=== PATIENT | female | born 1940 | race Caucasian/White ===

== ENCOUNTER 2016-10-30 10:54 | Emergency (ER) | payer OTHER, MEDICARE ==
[2016-10-30 11:05] VITALS: BP 128/49; PULSE 78; TEMP 97.5; BMI 18.5
--- NOTE | 2016-10-30 11:31 | PDOC ---
History of Present Illness - General Chief Complaint: Pain Stated Complaint: LEFT UPPER LEG PAIN Time Seen by Provider: 10/30/16 11:14 - History of Present Illness Initial Comments: 10/30/16 11:28 76-year-old female with a past medical history of hypertension, hyperlipidemia, COPD, CAD, and a prior left hip fracture Patient states that 3 days ago she developed left thigh pain, which is worse when she gets up from a sitting position, and feels better when she is at rest She describes the pain as a pulling sensation in her inner thigh She denies any fall or injury She denies any swelling or erythema She denies any rash She denies any numbness or tingling in her leg or foot She denies any direct trauma to the area She states she is not on any blood thinners at this time She denies any other complaints at this time, and the remainder of the review of systems is negative Past History - Past Medical History Allergies/Adverse Reactions: Allergies Allergy/AdvReac Type Severity Reaction Status Date / Time Stock Ragweed Pollen Mixture Allergy Intermediate Cough Verified 10/30/16 10:56 No Known Drug Allergies Allergy Verified 10/30/16 10:56 Home Medications: Ambulatory Orders Atenolol [Tenormin -] 50 mg PO DAILY #0 08/02/11 Rosuvastatin Calcium [Crestor] 10 mg PO DAILY #0 08/02/11 Ramipril 10 mg PO HS 05/07/12 Fenofibrate [Lipofen] 145 mg PO DAILY 05/15/13 Ipratropium/Albuterol Sulfate [Combivent Respimat Inhal [place]] 4 gm IH PRN PRN 10/30/16 Anemia: No Asthma: No Cancer: Yes (LEFT BREAST 1999) Cardiac Disorders: Yes CVA: No COPD: No CHF: No Dementia: No Diabetes: No GI Disorders: Yes (H/O COLONIC POLYPS) Disorders: No HTN: Yes Hypercholesterolemia: Yes Liver Disease: No Seizures: No Thyroid Disease: No - Surgical History Abdominal Surgery: No Appendectomy: Yes (2003) Cardiac Surgery: Yes (ANGIOPLASTY/STENT PLACEMENT) Cholecystectomy: Yes (2004) Lung Surgery: No Neurologic Surgery: No Orthopedic Surgery: Yes (RIGHT HIP REPLACEMENT 1999/LEFT THR) - Psycho/Social/Smoking Cessation Hx Anxiety: No Suicidal Ideation: No Smoking Status: No Smoking History: Current some day smoker Have you smoked in the past 12 months: Yes Number of Cigarettes Smoked Daily: 1 If you are a former smoker, when did you quit?: 2009 Information on smoking cessation initiated: Yes 'Breaking Loose' booklet given: 10/30/16 Hx Alcohol Use: Yes (2 PER WEEK) Drug/Substance Use Hx: No Substance Use Type: Alcohol Hx Substance Use Treatment: No *Physical Exam - Vital Signs Last Vital Signs Temp Pulse Resp BP Pulse Ox 97.5 F L 78 20 128/49 96 10/30/16 10:55 10/30/16 10:55 10/30/16 10:55 10/30/16 10:55 10/30/16 10:55 - Physical Exam Comments: 10/30/16 11:29 Physical exam Last Vital Signs Temp Pulse Resp BP Pulse Ox 97.5 F L 78 20 128/49 96 10/30/16 10:55 10/30/16 10:55 10/30/16 10:55 10/30/16 10:55 10/30/16 10:55 Patient is alert and answering questions She is ambulatory with a cane (she states that she usually does not use a cane) Head is normocephalic and atraumatic Left lower extremity- There is passive full range of motion of the left hip and left knee There is some mild tenderness on the inner thigh, without point tenderness There is full range of motion of the ankle Pulses are full and intact in the left lower extremity down to the dorsalis pedis Sensation is intact in the left foot There is no calf swelling or tenderness There is no evidence of bruising, erythema, or cellulitis There are no rashes ED Treatment Course - RADIOLOGY Radiology Studies Ordered: Category Date Time Status FEMUR-LEFT [RAD] Stat Radiology 10/30/16 11:25 Ordered HIP-LEFT [RAD] Stat Radiology 10/30/16 11:25 Ordered KNEE 3 POS-LEFT [RAD] Stat Radiology 10/30/16 11:25 Ordered DUPLEX VASCUL US-1 LEG [US] Stat Ultrasound 10/30/16 11:26 Ordered Medical Decision Making - Medical Decision Making 10/30/16 13:48 X-rays Left femur-NAD Left hip series Previous hip fracture stabilization with hardware (Also previous right hip replacement) No signs of an acute fracture or loosening All appear unchanged Left knee series NAD DVT ultrasound of the left lower extremity No DVT is identified in the left lower extremity Impression-probable muscle pull of the left thigh *DC/Admit/Observation/Transfer Diagnosis at time of Disposition: Pulled muscle, Thigh pain - Discharge Dispostion Disposition: HOME Condition at time of disposition: Good - Referrals Referrals: Kyle Green MD [Staff Physician] - - Patient Instructions Additional Instructions: tylenol Or Motrin for pain, warm compresses, use your cane or walker Please follow-up with Dr. green in 24-48 hours Followup with your primary care physician in 24-48 hours Return immediately if you worsen in any way
== END 2016-10-30 13:58 | disposition home or self-care (01) ==
LOC: FER 10:54
DX: M79.652 Pain in left thigh (principal); S76.912A Strain of unspecified muscles, fascia and tendons at thigh level, left thigh, initial encounter; X58.XXXA Exposure to other specified factors, initial encounter; Y93.9 Activity, unspecified; Y92.9 Unspecified place or not applicable; J44.9 Chronic obstructive pulmonary disease, unspecified; I25.10 Atherosclerotic heart disease of native coronary artery without angina pectoris; Z85.3 Personal history of malignant neoplasm of breast; I10 Essential (primary) hypertension; E78.00 Pure hypercholesterolemia, unspecified; Z95.5 Presence of coronary angioplasty implant and graft; Z96.641 Presence of right artificial hip joint
CPT/HCPCS: 73502-TC-LT; 73552-TC-LT; 73562-TC-LT; 93971-TC; 99282-25

== ENCOUNTER 2016-12-30 09:58 | Emergency (ER) | payer OTHER, MEDICARE ==
[2016-12-30 10:06] VITALS: BP 120/66; PULSE 66; TEMP 98.8; BMI 18.0
--- NOTE | 2016-12-30 10:26 | PDOC ---
History of Present Illness - General Chief Complaint: Injury Stated Complaint: RT KNEE INJURY Time Seen by Provider: 12/30/16 10:26 History Source: Patient Exam Limitations: No Limitations - History of Present Illness Initial Comments: 76 yo F history COPD, HTN, HL, bilateral hip replacements presents s/p fall. She states that she fell onto her R leg, now having pain to the R knee. She did not hit her head or lose consciousness. She has been unable to ambulate due to knee pain. Pain is worse with moving her knee, better with rest and elevation. No other injuries. Past History - Past Medical History Allergies/Adverse Reactions: Allergies Allergy/AdvReac Type Severity Reaction Status Date / Time Stock Ragweed Pollen Mixture Allergy Intermediate Cough Verified 12/30/16 10:02 No Known Drug Allergies Allergy Verified 12/30/16 10:02 Home Medications: Ambulatory Orders Atenolol [Tenormin -] 50 mg PO DAILY #0 08/02/11 Rosuvastatin Calcium [Crestor] 10 mg PO DAILY #0 08/02/11 Ramipril 10 mg PO HS 05/07/12 Fenofibrate [Lipofen] 145 mg PO DAILY 05/15/13 Ipratropium/Albuterol Sulfate [Combivent Respimat Inhal [place]] 4 gm IH PRN PRN 10/30/16 Anemia: No Asthma: No Cancer: Yes (LEFT BREAST 1999) Cardiac Disorders: Yes CVA: No COPD: No CHF: No Dementia: No Diabetes: No GI Disorders: Yes (H/O COLONIC POLYPS) Disorders: No HTN: Yes Hypercholesterolemia: Yes Liver Disease: No Seizures: No Thyroid Disease: No - Surgical History Abdominal Surgery: No Appendectomy: Yes (2003) Cardiac Surgery: Yes (ANGIOPLASTY/STENT PLACEMENT) Cholecystectomy: Yes (2004) Lung Surgery: No Neurologic Surgery: No Orthopedic Surgery: Yes (RIGHT HIP REPLACEMENT 1999/LEFT THR) - Psycho/Social/Smoking Cessation Hx Anxiety: No Suicidal Ideation: No Smoking Status: No Smoking History: Current some day smoker Have you smoked in the past 12 months: Yes Number of Cigarettes Smoked Daily: 5 If you are a former smoker, when did you quit?: 2009 Information on smoking cessation initiated: Yes 'Breaking Loose' booklet given: 12/30/16 Hx Alcohol Use: (weekly) Drug/Substance Use Hx: No Substance Use Type: Alcohol Hx Substance Use Treatment: No Review of Systems - Review of Systems Able to Perform ROS?: Yes Comments:: GENERAL/CONSTITUTIONAL: No fever or chills. No weakness. HEAD, EYES, EARS, NOSE AND THROAT: No change in vision. No ear pain or discharge. No sore throat. CARDIOVASCULAR: No chest pain or shortness of breath. RESPIRATORY: No cough, wheezing, or hemoptysis. GASTROINTESTINAL: No nausea, vomiting, diarrhea or constipation. GENITOURINARY: No dysuria, frequency, or change in urination. MUSCULOSKELETAL: +R knee pain. No neck or back pain. SKIN: No rash NEUROLOGIC: No headache, vertigo, loss of consciousness, or change in strength/ sensation. ENDOCRINE: No increased thirst. No abnormal weight change. HEMATOLOGIC/LYMPHATIC: No anemia, easy bleeding, or history of blood clots. ALLERGIC/IMMUNOLOGIC: No hives or skin allergy. *Physical Exam - Vital Signs Last Vital Signs Temp Pulse Resp BP Pulse Ox 98.8 F 66 18 120/66 97 12/30/16 09:58 12/30/16 09:58 12/30/16 09:58 12/30/16 09:58 12/30/16 09:58 - Physical Exam Comments: GENERAL: Awake, alert, and fully oriented, in no acute distress HEAD: No signs of trauma EYES: PERRLA, EOMI, sclera anicteric, conjunctiva clear ENT: Auricles normal inspection, hearing grossly normal, nares patent, oropharynx clear without exudates. Moist mucosa NECK: Normal ROM, supple, no lymphadenopathy, JVD, or masses LUNGS: Breath sounds equal, clear to auscultation bilaterally. No wheezes, and no crackles HEART: Regular rate and rhythm, normal S1 and S2, no murmurs, rubs or gallops ABDOMEN: Soft, nontender, normoactive bowel sounds. No guarding, no rebound. No masses EXTREMITIES: R knee with tenderness over the R medial knee, at the proximal portion of the tibia. +Trace effusion. No crepitus. FROM. Extremities otherwise with normal range of motion, no edema. No clubbing or cyanosis. No cords, erythema, or tenderness NEUROLOGICAL: Cranial nerves II through XII grossly intact. Normal speech. + Antalgic gait. Motor and sensation intact. SKIN: Warm, Dry, normal turgor, no rashes or lesions noted. Procedures - Splinting Splint Location: Right: Knee Pre-Proc Neuro Vasc Exam: normal Pre-Made Type: knee immobilizer Post-Proc Neuro Vasc Exam: unchanged from pre-exam Progress: Pt was crutch trained. She has used crutches in the past, comfortable with their use. *DC/Admit/Observation/Transfer Diagnosis at time of Disposition: Pulled muscle Right knee sprain Qualifiers: Encounter type: initial encounter Involved ligament of knee: unspecified ligament Qualified Code(s): S83.91XA - Sprain of unspecified site of right knee , initial encounter - Discharge Dispostion Disposition: HOME Condition at time of disposition: Stable Admit: No - Referrals Referrals: Dar Garcia MD [Staff Physician] - - Patient Instructions Printed Discharge Instructions: DI for Knee Sprain
[2016-12-30] MEDS ORDERED: IBUPROFEN 600 MG TABLET (FP) PO ONE ×2 (10:51→10:54)
== END 2016-12-30 12:55 | disposition home or self-care (01) ==
LOC: FER 09:58
PROC: 2W3QX1Z Immobilization of Right Lower Leg using Splint (ICD-10-PCS; principal; 2016-12-30)
DX: S83.91XA Sprain of unspecified site of right knee, initial encounter (principal); W18.39XA Other fall on same level, initial encounter; Y93.9 Activity, unspecified; Y92.9 Unspecified place or not applicable; Z96.643 Presence of artificial hip joint, bilateral; F17.210 Nicotine dependence, cigarettes, uncomplicated; Z85.3 Personal history of malignant neoplasm of breast; I10 Essential (primary) hypertension; E78.00 Pure hypercholesterolemia, unspecified
CPT/HCPCS: 29515; 73562-TC-RT; 99282-25

== ENCOUNTER 2017-02-28 09:58 | Day surgery (SDC) | payer OTHER, MEDICARE ==
--- NOTE | 2017-02-22 09:41 | HP ---
Admitting History and Physical - Primary Care Physician PCP: Ya Terrazas - Admission Chief Complaint: Left breast mass History of Present Illness: 76 year old postmenapausal female diagnosed with stage 1 breast cancer treated with left partial mastectomy,RT and 5 years of tamoxifen. Mammogram 01/2017 was benign. She noted hard mass at medial border of scar. Punch biopsy of mass showed dermal fibrosis. 04/2016. the mass now is protruding through the skin and is painful and would like it excised. History Source: Patient Limitations to Obtaining History: No Limitations - Past Medical History Cardiovascular: Yes: HTN, Hyperlipdemia Additional Past Medical History: H/O left breast cancer - Past Surgical History Additional Past Surgical History: left breast wide excision RT tamoxifen x 5 years 1995 - Smoking History Smoking history: Current some day smoker Have you smoked in the past 12 months: Yes Aproximately how many cigarettes per day: 5 If you are a former smoker, when did you quit?: 2009 - Alcohol/Substance Use Hx Alcohol Use: Yes (4 per week) Home Medications - Allergies Allergies/Adverse Reactions: Allergies Allergy/AdvReac Type Severity Reaction Status Date / Time Stock Ragweed Pollen Mixture Allergy Intermediate Cough Verified 12/30/16 10:02 No Known Drug Allergies Allergy Verified 12/30/16 10:02 - Home Medications Home Medications: Ambulatory Orders Atenolol [Tenormin -] 50 mg PO DAILY #0 08/02/11 Rosuvastatin Calcium [Crestor] 10 mg PO DAILY #0 08/02/11 Ramipril 10 mg PO HS 05/07/12 Fenofibrate [Lipofen] 145 mg PO DAILY 05/15/13 Ipratropium/Albuterol Sulfate [Combivent Respimat Inhal [place]] 4 gm IH PRN PRN 10/30/16 Family Disease History - Family Disease History Family Disease History: CA: Sister (cervical cnacer 30) Physical Examination Constitutional: Yes: Well Nourished Breast(s): Yes: Other (no skin changes right breast , left breast there is a hardened mass in medial scar with some protrusion, no adenopathy) Problem List - Problems (1) Mass of left breast Code(s): N63 - UNSPECIFIED LUMP IN BREAST Assessment/Plan Left breast excisional biopsy for mass,H/O left breast cancer S/P wide excision 1995
[2017-02-23 08:46] VITALS: BMI 18.0
[2017-02-28] MEDS ORDERED: MIDAZOLAM HCL 2 MG/2 ML SINGLE DOSE VIAL ONE ×2 (13:12→13:29)
[2017-02-28] MEDS ORDERED: LIDOCAINE HCL 1%, 10 MG/ML (20ML VIAL) IJ ONE (13:31)
[2017-02-28] MEDS ORDERED: LIDOCAINE 1%/EPI 1:100000 (20 ML MULTI DOSE VIAL) IJ ONE (14:00)
[2017-02-28] MEDS ORDERED: BUPIVACAINE HCL/PF 0.25% (2.5MG/ML) 10 ML VIAL IJ ONE (14:30)
[2017-02-28 14:57] VITALS: TEMP 97.7
[2017-02-28] MEDS ORDERED: ONDANSETRON 4 MG/2 ML VIAL IVPB PRN (15:04)
[2017-02-28] MEDS ORDERED: KETOROLAC TROMETHAMINE 30 MG/1 ML VIAL IVPUSH PRN (15:04)
[2017-02-28] MEDS ORDERED: PATIENT'S OWN MEDICATION (NON-FORMULARY) (Ipratropium/Albuterol Sulfate [Combivent Respima IH SCH (15:15)
[2017-02-28] MEDS ORDERED: DEXTROSE 5%-0.45% SALINE 1,000 ML IV SCH (15:15)
[2017-02-28 15:27] VITALS: BP 138/72; PULSE 64
[2017-02-28] MEDS ORDERED: ROSUVASTATIN CA 10 MG TABLET (FP) PO SCH (22:00)
--- NOTE | 2017-03-01 08:38 | OP ---
DATE OF OPERATION: 02/28/2017 PREOPERATIVE DIAGNOSIS: Left breast cancer. POSTOPERATIVE DIAGNOSIS: Left breast cancer. PROCEDURE: Left breast excision. SURGEON: Yrn Terrazas MD WALL AND FLOOR TILER: Alexadner Santos. ANESTHESIA: MAC. ANESTHESIOLOGIST: Darwin Mejia MD SPECIMEN: Left breast mass. ESTIMATED BLOOD LOSS: Minimal. INDICATIONS FOR PROCEDURE: The patient is a 76-year-old woman who underwent a left breast surgery in 1995 for a stage I left breast cancer. She had adjuvant radiation, and 5 years of tamoxifen. She has had no evidence of recurrence, but has developed a hard mass at the medial border of the scar. Punch biopsy of the mass in April of 2016 showed dermal fibrosis and dystrophic calcifications. She declined surgery at that time. The mass is now protruding through the skin, is painful, and catches on her clothing. She is now requesting excision of the mass. The procedure, risks, and complications were discussed with her prior to surgery. DESCRIPTION OF PROCEDURE: The patient was taken to the [facility] where informed consent was obtained. She was taken to the operating room where sequential compression devices were placed on both legs. She did not receive antibiotics prior to surgery. The left breast was prepped and draped in the usual fashion. She was sedated. A time-out was performed. The skin was infiltrated with 1% lidocaine. Examination of the left breast showed a hard mass in the retroareolar region extending medially with a portion poking through the skin. She had a left periareolar incision, which was opened using a scalpel. The mass was then identified, and electrocautery was used to mobilize and separate the mass from the breast parenchyma. Once the mass was completely from the breast tissue, it was removed and labeled with a silk suture. The long suture was lateral, and the short suture was superior. The mass was hard and irregular. It was placed in formalin and sent to Pathology for further evaluation. The wound was reexamined, and there was good hemostasis. The skin was infiltrated with 0.25% Marcaine. The incision was closed using interrupted sutures of 3-0 Vicryl for the deep tissue and the dermis. The skin was closed with a running subcuticular closure of 4-0 Monocryl. The mass was right underneath the skin so the skin at the mid portion was quite thin, but closed without any difficulty. Interrupted simple sutures of 4-0 Monocryl were used to close a couple of gaps in the closure. The wound was cleaned and covered with Steri-Strips. A gauze dressing and a surgical bra were then applied. The patient tolerated the procedure well. At the end of the procedure, all sponge and instrument counts were correct. She was taken to the ambulatory surgical unit in satisfactory condition. YRN TERRAZAS M.D. [id number] MTDD
[2017-03-01] MEDS ORDERED: FENOFIBRATE 145 MG PO SCH (10:00)
[2017-03-01] MEDS ORDERED: PATIENT'S OWN MEDICATION (NON-FORMULARY) (Ramipril [Ramipril] 10 MG) PO SCH (10:00)
[2017-03-01] MEDS ORDERED: ATENOLOL 50 MG TABLET (FP) PO SCH (10:00)
[2017-03-01] MEDS ORDERED: MULTIVITAMINS (DAILY MVI) TABLET (FP) PO SCH (10:00)
[2017-03-01] MEDS ORDERED: ASPIRIN 81 MG CHEWABLE TABLETS PO SCH (10:00)
--- NOTE | 2017-03-03 17:06 | PATH ---
Surgical Pathology Report Patient Name: SIDRA OSEGUERA [facility]. Rec. #: [id number] /Age/Gender: 1940 (Age: 77) / F Account: [id number] Location: [facility] AMBULATORY Taken: 02/28/2017 Received: 02/28/2017 Reported: 03/03/2017 Physicians: Ya Terrazas M.D. Specimen(s) Received LEFT BREAST MASS Clinical History Calcified left breast mass-patient s/p L partial mastectomy for cancer 22 years ago Final Diagnosis BREAST, LEFT, MASS, EXCISION: FIBROADIPOSE TISSUE SHOWING PRIOR BIOPSY SITE CHANGES WITH DYSTROPHIC OSSIFICATION AND CALCIFICATION. NEGATIVE FOR MALIGNANCY. Electronically Signed Pita Peters M.D. Gross Description Received in formalin, labeled "left breast mass" is a 2.8 x 1.5 x 1 cm portion of fibrofatty tissue which appears markedly calcified and bony. A long suture designates the lateral margin and a short suture indicates the superior margin, per the surgeon. The specimen is inked as follows: Superior & lateral -blue, inferior-green, anterior-red, deep-black, medial-yellow. The specimen is decalcified and serially sectioned. Sectioning reveals hard bony appearing cut surface. The specimen is entirely submitted in six cassettes as follows: 1-lateral margin; 2-5- entire tissue with superior, inferior, anterior and posterior margins; 6-medial margin. Time to formalin fixation: Not given Total formalin fixation time: Approximately 34 hours
== END 2017-02-28 15:37 | disposition home or self-care (01) ==
LOC: FASU 09:58
PROVIDERS: ATTEND Surgery
PROC: 0HBU0ZX Excision of Left Breast, Open Approach, Diagnostic (ICD-10-PCS; principal; 2017-02-28 13:30)
DX: N63 Unspecified lump in breast (principal); Z85.3 Personal history of malignant neoplasm of breast; N64.89 Other specified disorders of breast; I10 Essential (primary) hypertension; E78.5 Hyperlipidemia, unspecified; F17.210 Nicotine dependence, cigarettes, uncomplicated
CPT/HCPCS: 88307-TC; 94760

== ENCOUNTER 2017-10-05 20:58 | Emergency (ER) | payer OTHER, MEDICARE ==
[2017-10-05 21:24] VITALS: BP 145/67; PULSE 78; TEMP 97.9; BMI 18.6
--- NOTE | 2017-10-05 21:56 | PDOC ---
History of Present Illness - General Chief Complaint: Injury Stated Complaint: LT LEG INJURY History Source: Patient Exam Limitations: No Limitations - History of Present Illness Initial Comments: 10/06/17 01:37 sustained laceration to lower extremity 4 days ago Timing/Duration: 1 week Severity: mild Modifying Factors: worse with: immobilization Associated Symptoms: denies: fever/chills Past History - Past Medical History Allergies/Adverse Reactions: Allergies Allergy/AdvReac Type Severity Reaction Status Date / Time Stock Ragweed Pollen Mixture Allergy Intermediate Cough Verified 02/23/17 08:37 No Known Drug Allergies Allergy Verified 02/23/17 08:37 Home Medications: Ambulatory Orders Atenolol [Tenormin -] 50 mg PO DAILY #0 08/02/11 Fenofibrate [Lipofen] 145 mg PO DAILY 05/15/13 Aspirin [ASA -] 81 mg PO DAILY 02/23/17 Multivitamin [One Daily] 1 each PO DAILY 02/23/17 Ramipril 10 mg PO DAILY capsule 02/23/17 Rosuvastatin Calcium [Crestor] 10 mg PO QOD tablet 02/23/17 Anemia: No Asthma: No Cancer: Yes (LEFT BREAST 1999) Cardiac Disorders: Yes CVA: No COPD: Yes CHF: No Dementia: No Diabetes: No GI Disorders: Yes (H/O COLONIC POLYPS) Disorders: No HTN: Yes Hypercholesterolemia: Yes Liver Disease: No Seizures: No Thyroid Disease: No - Surgical History Abdominal Surgery: No Appendectomy: Yes (2003) Cardiac Surgery: Yes (ANGIOPLASTY/STENT PLACEMENT) Cholecystectomy: Yes (2004) Lung Surgery: No Neurologic Surgery: No Orthopedic Surgery: Yes (RIGHT HIP REPLACEMENT 1999/LEFT THR) - Suicide/Smoking/Psychosocial Hx Smoking Status: No Smoking History: Current every day smoker Have you smoked in the past 12 months: Yes Number of Cigarettes Smoked Daily: 5 If you are a former smoker, when did you quit?: 2009 Information on smoking cessation initiated: Yes 'Breaking Loose' booklet given: 10/05/17 Hx Alcohol Use: Yes (4 per week) Drug/Substance Use Hx: No Substance Use Type: Alcohol Hx Substance Use Treatment: No Review of Systems - Review of Systems All Other Systems: Reviewed and Negative *Physical Exam - Vital Signs Last Vital Signs Temp Pulse Resp BP Pulse Ox 97.9 F 78 16 145/67 97 10/05/17 20:59 10/05/17 20:59 10/05/17 20:59 10/05/17 20:59 10/05/17 20:59 - Physical Exam General Appearance: Yes: Nourished, Appropriately Dressed HEENT: positive: Pharynx Normal Neck: positive: Supple Respiratory/Chest: positive: Lungs Clear Cardiovascular: positive: Regular Rhythm Gastrointestinal/Abdominal: negative: Tender Lymphatic: negative: Adenopathy Musculoskeletal: positive: Normal Inspection Extremity: positive: Other (superficial laceration L lower leg) Integumentary: positive: Normal Color Neurologic: negative: Sensory Deficit Medical Decision Making - Medical Decision Making 10/06/17 01:39 laceration. unable to repair due to delayed presentation ttutd wound care, PCP fu *DC/Admit/Observation/Transfer Diagnosis at time of Disposition: Laceration - Discharge Dispostion Disposition: HOME Condition at time of disposition: Stable - Referrals Referrals: Buddy Weaver MD [Primary Care Provider] - Call tomorrow - Patient Instructions Printed Discharge Instructions: How to Care for a Surgical Wound - Post Discharge Activity
== END 2017-10-05 22:01 | disposition home or self-care (01) ==
LOC: FER 20:58
DX: S81.812A Laceration without foreign body, left lower leg, initial encounter (principal); X58.XXXA Exposure to other specified factors, initial encounter; Y93.9 Activity, unspecified; Y92.9 Unspecified place or not applicable; I10 Essential (primary) hypertension; E78.00 Pure hypercholesterolemia, unspecified; J44.9 Chronic obstructive pulmonary disease, unspecified; F17.210 Nicotine dependence, cigarettes, uncomplicated; Z79.82 Long term (current) use of aspirin; Z85.3 Personal history of malignant neoplasm of breast; Z95.5 Presence of coronary angioplasty implant and graft; Z96.641 Presence of right artificial hip joint
CPT/HCPCS: 99281-25

== ENCOUNTER 2018-07-20 10:13 | Emergency (ER) | payer OTHER, MEDICARE ==
[2018-07-20 10:18] VITALS: BP 128/59; PULSE 62; TEMP 98.2; BMI 19.2
[2018-07-20] MEDS ORDERED: ALBUTEROL SO4 2.5/IPRATROPIUM 0.5 INH SOL 3 ML VIAL.NEB. NEB ONE ×2 (10:24→10:25)
--- NOTE | 2018-07-20 10:28 | PDOC ---
History of Present Illness - General Chief Complaint: Cold Symptoms Stated Complaint: cough History Source: Patient Exam Limitations: No Limitations - History of Present Illness Initial Comments: 07/20/18 10:26 78-year-old female history of hypertension and high cholesterol and smoking here today complaining of a cough for 2 weeks. Patient states cough is productive of yellow phlegm and is now white denies any fevers or chills denies chest pain no leg swelling no other current complaints. Is a patient of Dr. Toussaint's was unable to get an appointment so came to the ED to be seen does not use inhalers at home does not have a color weigher Past History - Past Medical History Allergies/Adverse Reactions: Allergies Allergy/AdvReac Type Severity Reaction Status Date / Time Stock Ragweed Pollen Mixture Allergy Intermediate Cough Verified 07/20/18 10:14 No Known Drug Allergies Allergy Verified 07/20/18 10:14 Home Medications: Ambulatory Orders Atenolol [Tenormin -] 50 mg PO DAILY #0 08/02/11 Fenofibrate [Lipofen] 145 mg PO DAILY 05/15/13 Aspirin [ASA -] 81 mg PO DAILY 02/23/17 Multivitamin [One Daily] 1 each PO DAILY 02/23/17 Ramipril 10 mg PO DAILY capsule 02/23/17 Rosuvastatin Calcium [Crestor] 10 mg PO QOD tablet 02/23/17 Albuterol Sulfate Inhaler - [Ventolin HFA Inhaler -] 2 inh PO Q4H PRN #1 inh MDD 6 07/20/18 Doxycycline Monohydrate [Mondoxyne Nl] 100 mg PO BID #14 capsule 07/20/18 Methylprednisolone [Medrol Dose Juan] 4 mg PO ASDIR #21 tablet 07/20/18 Anemia: No Asthma: No Cancer: Yes (LEFT BREAST 1999) Cardiac Disorders: Yes CVA: No COPD: Yes CHF: No Dementia: No Diabetes: No GI Disorders: Yes (H/O COLONIC POLYPS) Disorders: No HTN: Yes Hypercholesterolemia: Yes Liver Disease: No Seizures: No Thyroid Disease: No - Surgical History Abdominal Surgery: No Appendectomy: Yes (2003) Cardiac Surgery: Yes (ANGIOPLASTY/STENT PLACEMENT) Cholecystectomy: Yes (2004) Lung Surgery: No Neurologic Surgery: No Orthopedic Surgery: Yes (RIGHT HIP REPLACEMENT 1999/LEFT THR) - Suicide/Smoking/Psychosocial Hx Smoking Status: No Smoking History: Current some day smoker Have you smoked in the past 12 months: No Number of Cigarettes Smoked Daily: 1 If you are a former smoker, when did you quit?: 2009 Information on smoking cessation initiated: Yes 'Breaking Loose' booklet given: 10/05/17 Hx Alcohol Use: Yes (daily 1-2 drinks) Drug/Substance Use Hx: No Substance Use Type: Alcohol Hx Substance Use Treatment: No Review of Systems - Review of Systems Constitutional: No: Diaphoresis, Fever HEENTM: No: Blurred Vision Respiratory: Yes: Cough, Shortness of Breath, Wheezing Cardiac (ROS): No: Chest Pain, Edema Integumentary: No: Bruising, Change in Color Neurological: No: Headache, Numbness All Other Systems: Reviewed and Negative *Physical Exam - Vital Signs Last Vital Signs Temp Pulse Resp BP Pulse Ox 98.2 F 62 19 128/59 L 97 07/20/18 10:14 07/20/18 10:14 07/20/18 10:14 07/20/18 10:14 07/20/18 10:14 - Physical Exam Comments: 07/20/18 10:27 Patient is awake alert no acute distress. Lungs are with rhonchorous wheezes bilateral bases left greater than right. Normal effort heart is regular without any murmurs rubs or gallops abdomen is soft and nontender skin is warm and dry the right anterior lion is noted for a superficial skin laceration which is old and healing no current signs of infection. No appreciated edema no calf tenderness neurologically alert and oriented 3 moving all 4 extremities Moderate Sedation - Procedure Monitoring Vital Signs: Procedure Monitoring Vital Signs Temperature 98.2 F 07/20/18 10:14 Pulse Rate 62 07/20/18 10:14 Respiratory Rate 19 07/20/18 10:14 Blood Pressure 128/59 L 07/20/18 10:14 O2 Sat by Pulse Oximetry (%) 97 07/20/18 10:14 ED Treatment Course - RADIOLOGY Radiology Studies Ordered: Category Date Time Status CHEST PA & LAT [RAD] Stat Radiology 07/20/18 10:24 Ordered Medical Decision Making - Medical Decision Making 07/20/18 10:28 Differential diagnosis includes bronchitis, pneumonia, viral URI, COPD exacerbation. Plan DuoNeb chest x-ray we will reassess following 07/20/18 11:39 cxr shows interstial marking bilaterally no focal infiltrate. will treat with abx and inhaler steroids for likley bronchitis, followup with dr. weaver, inocencia home. pt feels improved following neb. 07/20/18 11:52 pt cxr with bronchial markings no focal infiltrate. feels better . d/w dr weaver rec doxycyclinea nd medrol dose juan. will see early next week. *DC/Admit/Observation/Transfer Diagnosis at time of Disposition: Bronchitis - Discharge Dispostion Disposition: HOME Condition at time of disposition: Improved - Prescriptions Prescriptions: Albuterol Sulfate Inhaler - [Ventolin HFA Inhaler -] 2 inh PO Q4H PRN #1 inh MDD 6 PRN Reason: Cough Doxycycline Monohydrate [Mondoxyne Nl] 100 mg PO BID #14 capsule Methylprednisolone [Medrol Dose Juan] 4 mg PO ASDIR #21 tablet - Referrals Referrals: Buddy Weaver MD [Primary Care Provider] - - Patient Instructions Printed Discharge Instructions: DI for Acute Bronchitis Additional Instructions: you should take doxycycline 100 mg twice daily for one week. you should also follow up with dr. Weaver next week. call to day to schedule. you can use albuterol inhaler 2 puffs every 4 hrs as needed for coughing. you should also take a steroid, Medrol Dose Juan, follow instructions on the packet. return for worsening shortness of breath, fevers, vomiting, chest pains or any concerns. - Post Discharge Activity
== END 2018-07-20 11:59 | disposition home or self-care (01) ==
LOC: FER 10:13
PROC: 3E0F7GC Introduction of Other Therapeutic Substance into Respiratory Tract, Via Natural or Artificial Opening (ICD-10-PCS; principal; 2018-07-20)
DX: J20.9 Acute bronchitis, unspecified (principal); I10 Essential (primary) hypertension; E78.00 Pure hypercholesterolemia, unspecified; F17.210 Nicotine dependence, cigarettes, uncomplicated; Z85.3 Personal history of malignant neoplasm of breast
CPT/HCPCS: 71046-TC-FY; 94640; 99281-25

== ENCOUNTER 2018-08-25 17:29 | Inpatient (IN) | payer OTHER, MEDICARE ==
--- NOTE | 2018-08-25 19:17 | PDOC ---
History of Present Illness - General History Source: Patient Exam Limitations: No Limitations - History of Present Illness Initial Comments: 08/25/18 20:06 A portion of this note was documented by scribe services under my direction. I have reviewed the details of the note, within reason, and agree with the documentation with the following case summary and management plan written by me. Patient treated in the ED. Nursing notes are reviewed and incorporated into the medical decision-making. Vital signs reviewed. Assessment and plan: This is 78-year-old female who comes in complaining of generalized shakiness and weakness. On attempting to ambulate patient is difficulty. In addition to that patient fell recently and is complaining of some right flank and low back pain. We will obtain a workup to rule out infectious cause, electrolyte imbalance cardiac causes and metabolic causes Workup initiated including CBC, comp, head CT, abdominal and pelvis CT to rule out AAA, urinalysis, EKG, chest x-ray, cardiac enzymes 22:00 Patient's sodium is low at 126. X-ray shows no acute pathology EKG is normal sinus rhythm at a rate of [address]-T wave changes normal EKG Head CT Pelvic CT Patient will be placed in an observation bed for correction of her sodium patient started on normal saline here in the emergency department, <Darrin Yoon I - Last Filed: 08/25/18 22:06> - General History Source: Patient Exam Limitations: No Limitations - History of Present Illness Initial Comments: 08/25/18 20:43 The patient is a 78 year old female, with a significant PMH of HTN, vaginal cyst that burst, who presents to the emergency department for sudden onset shakiness in all extremities. Patients son states that at baseline she is able to ambulate and perform daily functions alone, but that around 10 am this morning she became unsteady and shaky, and is no longer able to walk on own. Patient notes that about 2 weeks ago she was in a hot tub and twisted where she had sudden onset pain, not currently experiencing back pain. Son notes a recent upper respiratory tract infection about a month ago. The patient denies chest pain, shortness of breath, headache and dizziness. Denies fever, chills, nausea, vomit, diarrhea and constipation. Denies dysuria, frequency, urgency and hematuria. PAST MEDICAL HISTORY: hypertension, vaginal cysts PAST SURGICAL HISTORY: no significant history FAMILY HISTORY: no pertinent history SOCIAL HISTORY: Pt lives with family and is employed. MEDICATIONS: reviewed ALLERGIES: As per nursing notes Review of Systems General: (+)Shakiness. (+)weakness. No fevers or chills, no weight loss HEENT: No change in vision. No sore throat,. No ear pain CardioVascular: No chest pain or shortness of breath Respiratory:No cough, or wheezing. Gastrointestinal: no nausea, vomiting, diarrhea or constipation, No rectal bleeding Genitourinary: No dysuria, hematuria, or frequency Musculoskeletal: No joint or muscle pain or swelling Neurologic: No headache, vertigo, dizziness or loss of consciousness Psychiatric: nor depression Skin: No rashes or easy bruising Endocrine: no increased thirst or abnormal weight change Allergic: no skin or latex allergy All other systems reviewed and normal Physical Exam General: (+) generalized weakness when attempting to stand and ambulate. Well- developed individual, no acute distress HEENT: Throat: Normal, tonsils normal, no erythema or exudate Neck: Supple, no meningeal signs, no lymphadenopathy Eyes::Pupils equal reactive and round, extraocular motion intact Chest: Nontender to palpation Cardiac: S1-S2 normal, regular rate and rhythm, no murmurs rubs or gallops Respiratory: Lungs clear to auscultation bilateral Abdomen: Soft, nondistended, normal bowel sounds, nontender to palpation diffusely BACK: (+)Right lower back and flank pain Extremities: Warm, dry, no cyanosis, clubbing, or edema Skin: No rashes Neuro: Alert and oriented x3, nonfocal exam, grossly intact, normal gait Psych: Normal mood and affect 08/25/18 22:12 <Sulema Hallman - Last Filed: 08/25/18 22:12> - General Chief Complaint: Pain Stated Complaint: BACK PAIN, "UNSTEADY" Time Seen by Provider: 08/25/18 19:16 Past History - Past Medical History Anemia: No Asthma: No Cancer: Yes (LEFT BREAST 2000) Cardiac Disorders: Yes (CAD) CVA: No COPD: No CHF: No Dementia: No Diabetes: No GI Disorders: Yes (H/O COLONIC POLYPS) Disorders: No HTN: Yes Hypercholesterolemia: Yes Liver Disease: No Seizures: No Thyroid Disease: No Other medical history: VULVAR CYST - Surgical History Abdominal Surgery: No Appendectomy: Yes (2003) Cardiac Surgery: Yes (ANGIOPLASTY/STENT PLACEMENT) Cholecystectomy: Yes (2004) Lung Surgery: No Neurologic Surgery: No Orthopedic Surgery: Yes (RIGHT HIP REPLACEMENT 2000/LEFT THR) - Suicide/Smoking/Psychosocial Hx Smoking Status: No Smoking History: Current every day smoker Have you smoked in the past 12 months: Yes Number of Cigarettes Smoked Daily: 20 If you are a former smoker, when did you quit?: 2009 Information on smoking cessation initiated: Yes 'Breaking Loose' booklet given: 10/05/17 Hx Alcohol Use: No (nightly) Drug/Substance Use Hx: No Substance Use Type: Alcohol Hx Substance Use Treatment: No <Darrin Yoon I - Last Filed: 08/25/18 22:06> <Sulema Hallman - Last Filed: 08/25/18 22:12> - Past Medical History Allergies/Adverse Reactions: Allergies Allergy/AdvReac Type Severity Reaction Status Date / Time Stock Ragweed Pollen Mixture Allergy Intermediate Cough Verified 08/25/18 17:29 No Known Drug Allergies Allergy Verified 08/25/18 17:29 Home Medications: Ambulatory Orders Atenolol [Tenormin -] 50 mg PO DAILY #0 08/02/11 Fenofibrate [Lipofen] 145 mg PO DAILY 05/15/13 Aspirin [ASA -] 81 mg PO DAILY 02/23/17 Multivitamin [One Daily] 1 each PO DAILY 02/23/17 Ramipril 10 mg PO DAILY capsule 02/23/17 Rosuvastatin Calcium [Crestor] 10 mg PO DAILY tablet 02/23/17 Cephalexin [Keflex] 500 mg PO BID 08/25/18 Sulfamethoxazole/Trimethoprim [Bactrim Ds -] 1 tab PO BID 08/25/18 *Physical Exam - Vital Signs Last Vital Signs Temp Pulse Resp BP Pulse Ox 99 F 92 H 18 103/62 96 08/25/18 17:30 08/25/18 17:30 08/25/18 17:30 08/25/18 17:30 08/25/18 17:30 <Darrin Yoon I - Last Filed: 08/25/18 22:06> - Vital Signs Last Vital Signs Temp Pulse Resp BP Pulse Ox 99 F 92 H 18 103/62 96 08/25/18 17:30 08/25/18 17:30 08/25/18 17:30 08/25/18 17:30 08/25/18 17:30 <Sulema Hallman - Last Filed: 08/25/18 22:12> Moderate Sedation - Procedure Monitoring Vital Signs: Procedure Monitoring Vital Signs Temperature 99 F 08/25/18 17:30 Pulse Rate 92 H 08/25/18 17:30 Respiratory Rate 18 08/25/18 17:30 Blood Pressure 103/62 08/25/18 17:30 O2 Sat by Pulse Oximetry (%) 96 08/25/18 17:30 <Darrin Yoon I - Last Filed: 08/25/18 22:06> - Procedure Monitoring Vital Signs: Procedure Monitoring Vital Signs Temperature 99 F 08/25/18 17:30 Pulse Rate 92 H 08/25/18 17:30 Respiratory Rate 18 08/25/18 17:30 Blood Pressure 103/62 08/25/18 17:30 O2 Sat by Pulse Oximetry (%) 96 08/25/18 17:30 <Sulema Hallman - Last Filed: 08/25/18 22:12> ED Treatment Course - LABORATORY CBC & Chemistry Diagram: 08/25/18 19:38 08/25/18 19:38 <Darrin Yoon I - Last Filed: 08/25/18 22:06> - LABORATORY CBC & Chemistry Diagram: 08/25/18 19:38 08/25/18 19:38 - ADDITIONAL ORDERS Additional order review: Laboratory Results 08/25/18 19:38 Sodium 126 L Potassium 4.7 Chloride 95 L Carbon Dioxide 20 L Anion Gap 11 BUN 24 H Creatinine 1.6 H Creat Clearance w eGFR 31.34 Random Glucose 103 Calcium 8.7 Total Bilirubin 0.8 AST 122 H ALT 39 Alkaline Phosphatase 63 Total Protein 6.2 L Albumin 3.1 L 08/25/18 19:38 RBC 3.31 L MCV 102.7 H MCHC 32.5 RDW 13.6 MPV 7.9 Neutrophils % 92.8 H Lymphocytes % 4.5 L Monocytes % 1.4 L Eosinophils % 1.0 Basophils % 0.3 <Sulema Hallman - Last Filed: 08/25/18 22:12> *DC/Admit/Observation/Transfer - Discharge Dispostion Decision to Admit order: Yes <Darrin Yoon I - Last Filed: 08/25/18 22:06> - Attestations Scribe Attestion: 08/25/18 20:44 Documentation prepared by Sulema Hallman, acting as medical billing and coding instructor for Darrin Yoon MD. <Sulema Hallman - Last Filed: 08/25/18 22:12> Diagnosis at time of Disposition: Hyponatremia - Discharge Dispostion Disposition: HOME Condition at time of disposition: Stable - Referrals Referrals: Buddy Weaver MD [Primary Care Provider] - - Patient Instructions - Post Discharge Activity
[2018-08-25 20:03] LABS: BASO % 0.3 % (0-2.0); HEMATOCRIT 33.9 % (32.4-45.2); LYMPH % 4.5 % (8-40); MCH 33.3 pg (25.7-33.7); MCHC 32.5 g/dl (32.0-36.0); MEAN CELL VOLUME 102.7 fl (80-96); MEAN PLT VOLUME 7.9 fl (7.5-11.1); MONO % 1.4 % (3.8-10.2); NEUT % 92.8 % (42.8-82.8); PLATELET COUNT 155 K/MM3 (134-434); RBC 3.31 M/mm3 (3.60-5.2); RDW 13.6 % (11.6-15.6); WHITE BLOOD COUNT 6.4 K/mm3 (4.0-10.8)
[2018-08-25 20:08] LABS: ALBUMIN 3.1 g/dl (3.4-5.0); ALK PHOS 63 U/L (45-117); ANION GAP 11 MMOL/L (8-16); BILIRUBIN,TOTAL 0.8 mg/dl (0.2-1); BLOOD UREA NITROGEN 24 mg/dl (7-18); CALCIUM 8.7 mg/dl (8.5-10); CHLORIDE 95 mmol/L (98-107); CO2 20 mmol/L (21-32); CREATININE 1.6 mg/dl (0.55-1.3); GLUCOSE,RANDOM 103 mg/dl (74-106); POTASSIUM 4.7 mmol/L (3.5-5.1); SGOT/AST 122 U/L (15-37); SGPT/ALT 39 U/L (13-61); SODIUM 126 mmol/L (136-145); TOT PROT 6.2 g/dl (6.4-8.2)
[2018-08-25] MEDS ORDERED: SODIUM CHLORIDE 1,000 ML IV ONE (20:25)
[2018-08-25 22:58] LABS: URINE COLOR YELLOW
[2018-08-25 22:59] LABS: PH,URINE 5.5 (4.5-8); URINE APPEARANCE CLOUDY; URINE BILIRUBIN 3+ (NEGATIVE); URINE GLUCOSE (UA) NEGATIVE (NEGATIVE); URINE KETONE TRACE (NEGATIVE); URINE PROTEIN NEGATIVE (NEGATIVE)
[2018-08-25 23:00] LABS: URINE LEUK ESTERASE 1+ (NEGATIVE); URINE NITRITE NEGATIVE (NEGATIVE)
[2018-08-25 23:06] LABS: EPI CELLS 1+ /HPF; URINE RBC 0-2 /hpf (0-3)
[2018-08-25 23:07] LABS: URINE BACTERIA 1+ /hpf (NEGATIVE)
[2018-08-25 23:08] LABS: URIC ACID CRYSTALS 3+ /hpf (NONE SEEN)
--- NOTE | 2018-08-25 23:43 | HP ---
CHIEF COMPLAINT: Generalized Weakness, Difficulty Ambulating PCP: Dr. Weaver HISTORY OF PRESENT ILLNESS: This is a 78 y/o woman PMHx of: HTN, HLD, CAD s/p Stent, L- Breast Ca (Stage 1, RT, 1999), Vaginal Cyst rupture. Who presents to the ED with generalized weakness, shakiness and difficulty ambulating. Patient reports having lumbar pain, denies bowel or bladder incontinence. Per ED record, patient's son reports patient having an unsteady gait/shaking, that the patient usually is able to ambulate and meet her ADLs unassisted. Patient denies fever, cough, dizziness, ACKERMAN, CP, AP, N/V/D, dysuria. ER course was notable for: (1) Na 126 (2) UA- +1 leukocyte esterase, +1 bacteria (3) CAMERON- BUN 24, Cr 1.6 Recent Travel: None PAST MEDICAL HISTORY: See HPI PAST SURGICAL HISTORY: AP 2003 Angioplasty/Stent Cholecystectomy 2004 R- Hip Replacement L- THR Social History: Smoking: Alcohol: Drugs: Family History: Non-contributory Allergies Stock Ragweed Pollen Mixture Allergy (Intermediate, Verified 08/25/18 17:29) Cough No Known Drug Allergies Allergy (Verified 08/25/18 17:29) HOME MEDICATIONS: Home Medications Medication Instructions Recorded Atenolol [Tenormin -] 50 mg PO DAILY #0 08/02/11 Fenofibrate [Lipofen] 145 mg PO DAILY 05/15/13 Aspirin [ASA -] 81 mg PO DAILY 02/23/17 Multivitamin [One Daily] 1 each PO DAILY 02/23/17 Ramipril 10 mg PO DAILY capsule 02/23/17 Rosuvastatin Calcium [Crestor] 10 mg PO DAILY tablet 02/23/17 Cephalexin [Keflex] 500 mg PO BID 08/25/18 Sulfamethoxazole/Trimethoprim 1 tab PO BID 08/25/18 [Bactrim Ds -] REVIEW OF SYSTEMS CONSTITUTIONAL: chills, generalized weakness, Absent: fever, diaphoresis, malaise, loss of appetite, weight change HEENT: Absent: rhinorrhea, nasal congestion, throat pain, throat swelling, difficulty swallowing, mouth swelling, ear pain, eye pain, visual changes CARDIOVASCULAR: Absent: chest pain, syncope, palpitations, irregular heart rate, lightheadedness , peripheral edema RESPIRATORY: Absent: cough, shortness of breath, dyspnea with exertion, orthopnea, wheezing, stridor, hemoptysis GASTROINTESTINAL: Absent: abdominal pain, abdominal distension, nausea, vomiting, diarrhea, constipation, melena, hematochezia GENITOURINARY: Absent: dysuria, frequency, urgency, hesitancy, hematuria, flank pain, genital pain MUSCULOSKELETAL: Absent: myalgia, arthralgia, joint swelling, back pain, neck pain SKIN: Absent: rash, itching, pallor HEMATOLOGIC/IMMUNOLOGIC: Absent: easy bleeding, easy bruising, lymphadenopathy, frequent infections ENDOCRINE: Absent: unexplained weight gain, unexplained weight loss, heat intolerance, cold intolerance NEUROLOGIC: unsteady gait Absent: headache, focal weakness or paresthesias, dizziness, seizure, mental status changes, bladder or bowel incontinence PSYCHIATRIC: Absent: anxiety, depression, suicidal or homicidal ideation, hallucinations. PHYSICAL EXAMINATION Vital Signs - 24 hr 08/25/18 17:30 Temperature 99 F Pulse Rate 92 H Respiratory 18 Rate Blood Pressure 103/62 O2 Sat by Pulse 96 Oximetry (%) GENERAL: Awake, alert, and fully oriented, in no acute distress. HEAD: Normal with no signs of trauma. EYES: Pupils equal, round and reactive to light, extraocular movements intact, sclera anicteric, conjunctiva clear. No lid lag. EARS, NOSE, THROAT: Ears normal, nares patent, oropharynx clear without exudates. Dry mucous membranes. NECK: Normal range of motion, supple without lymphadenopathy, JVD, or masses. LUNGS: Breath sounds equal, clear to auscultation bilaterally. No wheezes, and no crackles. No accessory muscle use. HEART: Regular rate and rhythm, normal S1 and S2 without murmur, rub or gallop. ABDOMEN: Soft, nontender, not distended, normoactive bowel sounds, no guarding, no rebound, no masses. No hepatomegaly or splenomegaly. MUSCULOSKELETAL: Normal range of motion at all joints. No bony deformities or tenderness. No CVA tenderness. UPPER EXTREMITIES: 2+ pulses, warm, well-perfused. No cyanosis. No clubbing. No peripheral edema. LOWER EXTREMITIES: 2+ pulses, warm, well-perfused. No calf tenderness. No peripheral edema. NEUROLOGICAL: Cranial nerves II-XII intact. Normal speech. Gait not observed. PSYCHIATRIC: Cooperative. Good eye contact. Appropriate mood and affect. SKIN: Warm, dry, normal turgor, no rashes or lesions noted, normal capillary refill. Laboratory Results - last 24 hr 08/25/18 08/25/18 08/25/18 19:38 19:38 22:08 WBC 6.4 RBC 3.31 L Hgb 11.0 Hct 33.9 MCV 102.7 H MCH 33.3 MCHC 32.5 RDW 13.6 Plt Count 155 MPV 7.9 Absolute Neuts (auto) 5.9 Neutrophils % 92.8 H Lymphocytes % 4.5 L Monocytes % 1.4 L Eosinophils % 1.0 Basophils % 0.3 Sodium 126 L Potassium 4.7 Chloride 95 L Carbon Dioxide 20 L Anion Gap 11 BUN 24 H Creatinine 1.6 H Creat Clearance w eGFR 31.34 Random Glucose 103 Calcium 8.7 Total Bilirubin 0.8 AST 122 H ALT 39 Alkaline Phosphatase 63 Total Protein 6.2 L Albumin 3.1 L TSH 1.97 Urine Color Yellow Urine Appearance Cloudy Urine pH 5.5 Ur Specific Lutz > 1.030 Urine Protein Negative Urine Glucose (UA) Negative Urine Ketones Trace H Urine Blood Negative Urine Nitrite Negative Urine Bilirubin 3+ H Urine Urobilinogen 1.0 Ur Leukocyte Esterase 1+ H Urine RBC 0-2 Urine WBC 5-10 Ur Epithelial Cells 1+ Uric Acid Crystals 3+ Urine Bacteria 1+ ASSESSMENT/PLAN: This is a 78 y/o woman with a PMHx of: HTN, HLD, CAD s/p Stent, Breast Ca ( Stage 1, completed RT, 1999), Vaginal Cyst rupture. Placed in Observation for Hyponatremia, Hypomagnesemia, UTI, CAMERON, Generalized Weakness for further evaluation of their emergent condition. Plan: See Problem List FEN PO fluids as tolerated Replete lytes prn Low Na Diet DVT ppx OOB SCDs Dispo: Observation Problem List - Problem (1) Hyponatremia Assessment/Plan: Likely secondary to Dehydration vs SIADH Na Deficit 361.7 mEq NS bolus given in ED Will repeat BMP tonight Goal 6-8meq/24hrs Urine Osmo, Urine Na, Urine lytes, Serum Osmo-pending Monitor vitals Code(s): E87.1 - HYPO-OSMOLALITY AND HYPONATREMIA (2) Generalized weakness Assessment/Plan: Likely secondary to Electrolyte Imbalance Replete lytes Monitor BMP Monitor vitals Fall precautions Consider PT eval Possible STR Code(s): R53.1 - WEAKNESS (3) Hypomagnesemia Assessment/Plan: Likely secondary to Dehydration Will replete with Magnesium Sulfate IV Monitor BMP Monitor vitals Neuro checks Code(s): E83.42 - HYPOMAGNESEMIA (4) UTI (urinary tract infection) Assessment/Plan: UA- +1 Leukocyte esterase, +1 bacteria, trace ketones, 5-10 WBCs Urine Culture-pending Will start Ceftriaxone Monitor CBC Monitor vitals Code(s): N39.0 - URINARY TRACT INFECTION, SITE NOT SPECIFIED (5) HTN (hypertension) Assessment/Plan: Stable Monitor BP Continue home meds with parameters Monitor renal function Low Na Diet Code(s): I10 - ESSENTIAL (PRIMARY) HYPERTENSION (6) HLD (hyperlipidemia) Assessment/Plan: Stable Continue Crestor, Fenofibrate Monitor LFTs Code(s): E78.5 - HYPERLIPIDEMIA, UNSPECIFIED (7) CAD (coronary artery disease) Code(s): I25.10 - ATHSCL HEART DISEASE OF [place] CORONARY ARTERY W/O ANG PCTRS (8) Breast CA Code(s): C50.919 - MALIGNANT NEOPLASM OF UNSP SITE OF UNSPECIFIED FEMALE BREAST Visit type - Emergency Visit Emergency Visit: Yes ED Registration Date: 08/25/18 Care time: The patient presented to the Emergency Department on the above date and was hospitalized for further evaluation of their emergent condition. - New Patient This patient is new to me today: Yes Date on this admission: 08/25/18 - Critical Care Critical Care patient: No
[2018-08-26 01:41] LABS: ANION GAP 7 MMOL/L (8-16); BLOOD UREA NITROGEN 21 mg/dL (7-18); CALCIUM 7.5 mg/dL (8.5-10.1); CHLORIDE 101 mmol/L (98-107); CO2 24 mmol/L (21-32); CREATININE 1.4 mg/dL (0.55-1.3); GLUCOSE,RANDOM 101 mg/dL (74-106); MAGNESIUM 1.4 mg/dL (1.8-2.4); POTASSIUM 4.8 mmol/L (3.5-5.1); SODIUM 131 mmol/L (136-145)
[2018-08-26] MEDS ORDERED: MAGNESIUM SULF 50% (8.12 MEQ/2 ML-1 GM VIAL) IVPB ONE (05:30)
[2018-08-26] MEDS ORDERED: CEFTRIAXONE 1 G/50 ML PREMIX 50 ML IVPB ONE (05:54)
[2018-08-26 09:06] LABS: ANION GAP 10 MMOL/L (8-16); BLOOD UREA NITROGEN 20 mg/dl (7-18); CALCIUM 7.9 mg/dl (8.5-10); CHLORIDE 102 mmol/L (98-107); CO2 18 mmol/L (21-32); CREATININE 1.2 mg/dl (0.55-1.3); GLUCOSE,RANDOM 75 mg/dl (74-106); POTASSIUM 4.4 mmol/L (3.5-5.1); SODIUM 130 mmol/L (136-145)
[2018-08-26] MEDS ORDERED: SODIUM CHLORIDE 1,000 ML IV SCH (10:15)
[2018-08-26] MEDS ORDERED: ROSUVASTATIN CA 10 MG TABLET (FP) PO SCH (10:15)
[2018-08-26] MEDS ORDERED: ATENOLOL 50 MG TABLET (FP) PO SCH (10:15)
[2018-08-26] MEDS: FENOFIBRIC ACID 135 MG CAP PO SCH ×2 (10:47→11:04)
[2018-08-26] MEDS: RAMIPRIL 5 MG CAPSULE (FP) PO SCH ×2 (10:48→11:04)
[2018-08-26] MEDS: MULTIVITAMINS (DAILY MVI) TABLET (FP) PO SCH (10:49)
--- NOTE | 2018-08-26 11:10 | PN ---
Physical Exam: SUBJECTIVE: Patient seen and examined, denies pain, sob, reports to smoking cigarettes and drinking daily 2 glasses gin tonic no withdrawl symptoms noted OBJECTIVE: Vital Signs Period Temp Pulse Resp BP Sys/Prakash Pulse Ox Last 24 Hr 99 F-100.2 F 82-94 16-18 103-146/46-65 95-96 GENERAL: The patient is awake, alert, and fully oriented, in no acute distress. HEAD: Normal with no signs of trauma. EYES: PERRL, extraocular movements intact, sclera anicteric, conjunctiva clear. No ptosis. ENT: Ears normal, nares patent, oropharynx clear without exudates, moist mucous membranes. NECK: Trachea midline, full range of motion, supple. LUNGS: Breath sounds equal, clear to auscultation bilaterally, no wheezes, no crackles, no accessory muscle use. HEART: Regular rate and rhythm, S1, S2 without murmur, rub or gallop. ABDOMEN: Soft, nontender, nondistended, normoactive bowel sounds, no guarding, no rebound, no hepatosplenomegaly, no masses. EXTREMITIES: 2+ pulses, warm, well-perfused, no edema. NEUROLOGICAL: Cranial nerves II through XII grossly intact. Normal speech, gait not observed. PSYCH: Normal mood, normal affect. SKIN: Warm, dry, normal turgor, no rashes or lesions noted Laboratory Results - last 24 hr 08/25/18 08/25/18 08/25/18 19:38 19:38 22:08 WBC 6.4 RBC 3.31 L Hgb 11.0 Hct 33.9 MCV 102.7 H MCH 33.3 MCHC 32.5 RDW 13.6 Plt Count 155 MPV 7.9 Absolute Neuts (auto) 5.9 Neutrophils % 92.8 H Lymphocytes % 4.5 L Monocytes % 1.4 L Eosinophils % 1.0 Basophils % 0.3 Sodium 126 L Potassium 4.7 Chloride 95 L Carbon Dioxide 20 L Anion Gap 11 BUN 24 H Creatinine 1.6 H Creat Clearance w eGFR 31.34 Random Glucose 103 Calcium 8.7 Magnesium Total Bilirubin 0.8 AST 122 H ALT 39 Alkaline Phosphatase 63 Total Protein 6.2 L Albumin 3.1 L TSH 1.97 Urine Color Yellow Urine Appearance Cloudy Urine pH 5.5 Ur Specific [place] > 1.030 Urine Protein Negative Urine Glucose (UA) Negative Urine Ketones Trace H Urine Blood Negative Urine Nitrite Negative Urine Bilirubin 3+ H Urine Urobilinogen 1.0 Ur Leukocyte Esterase 1+ H Urine RBC 0-2 Urine WBC 5-10 Ur Epithelial Cells 1+ Uric Acid Crystals 3+ Urine Bacteria 1+ 08/26/18 08/26/18 08/26/18 00:00 07:00 09:30 WBC RBC Hgb Hct MCV MCH MCHC RDW Plt Count MPV Absolute Neuts (auto) Neutrophils % Lymphocytes % Monocytes % Eosinophils % Basophils % Sodium 131 L 130 L Potassium 4.8 4.4 Chloride 101 102 Carbon Dioxide 24 18 L Anion Gap 7 L 10 BUN 21 H 20 H Creatinine 1.4 H 1.2 Creat Clearance w eGFR 36.56 43.68 Random Glucose 101 75 Calcium 7.5 L 7.9 L Magnesium 1.4 L 2.7 H Total Bilirubin AST ALT Alkaline Phosphatase Total Protein Albumin TSH Urine Color Urine Appearance Urine pH Ur Specific [place] Urine Protein Urine Glucose (UA) Urine Ketones Urine Blood Urine Nitrite Urine Bilirubin Urine Urobilinogen Ur Leukocyte Esterase Urine RBC Urine WBC Ur Epithelial Cells Uric Acid Crystals Urine Bacteria Active Medications Generic Name Dose Route Start Last Admin Trade Name Freq PRN Reason Stop Dose Admin Aspirin 81 mg 08/27/18 10:00 Asa - PO DAILY [facility] Atenolol 50 mg 08/26/18 10:15 08/26/18 10:49 Tenormin - PO 50 mg DAILY [facility] Administration Fenofibric Acid 135 mg 08/26/18 11:00 08/26/18 10:47 Trilipix - PO Not Given DAILY [facility] Ceftriaxone Sodium 50 mls @ 100 mls/hr 08/27/18 10:00 Ceftriaxone 1 Gm-D5w Bag IVPB DAILY [facility] Protocol Sodium Chloride 1,000 mls @ 75 mls/hr 08/26/18 10:15 08/26/18 10:47 Normal Saline - IV 75 mls/hr ASDIR [facility] Administration Multivitamins/Minerals/Vitamin C 1 tab 08/26/18 10:45 08/26/18 10:49 Tab-A-Vit - PO 1 tab DAILY [facility] Administration Ramipril 10 mg 08/26/18 10:45 08/26/18 10:48 Altace - PO Not Given DAILY [facility] Rosuvastatin Calcium 10 mg 08/26/18 10:15 08/26/18 10:46 Crestor - PO 10 mg DAILY [facility] Administration ASSESSMENT/PLAN: Yesenia Waterman is a 78 y/o woman PMHx of: HTN, HLD, CAD s/p Stent, L- Breast Ca ( Stage 1, RT, 1999), Vaginal Cyst rupture. admitted for Admitting Diagnosis Hyponatremia UTI Chronic Problems HTN HLD CAD s/p stent Breast Ca (stage 1) Vaginal Cyst rupture A/P #Hyponatremia --on admission 126-->130 --IVF NS @75cc/hr --Urine lytes pending --monitor BMP #UTI --on rocephin --ua +Leuko --IVF --no urine cx obtained on admission #HTN #HLD #GERMAN s/p stent -on asa -on home meds, (statin, BB, altace) #Hx of Breast Ca (L) stage 1 -s/p radiation 1999 #Vaginal Cyst rupture --seen by [employer] outpt --started on bactrim, will cont #ETOH use --monitor for withdrawl Dispo: requires inpatient treatment Visit type - Emergency Visit Emergency Visit: Yes ED Registration Date: 08/25/18 Care time: The patient presented to the Emergency Department on the above date and was hospitalized for further evaluation of their emergent condition. - New Patient This patient is new to me today: Yes Date on this admission: 08/26/18 - Critical Care Critical Care patient: No
--- NOTE | 2018-08-26 12:38 | EKG ---
Test Reason : Blood Pressure : / mmHG Vent. Rate : 085 BPM Atrial Rate : 085 BPM P-R Int : 140 ms QRS Dur : 072 ms QT Int : 356 ms P-R-T Axes : 078 060 063 degrees QTc Int : 423 ms NORMAL SINUS RHYTHM NORMAL ECG WHEN COMPARED WITH ECG OF 23-FEB-2017 08:31, NO SIGNIFICANT CHANGE WAS FOUND Confirmed by REINIER VIEIRA MD ([id number]) on 08/26/2018 12:38:25 PM Referred By: SASKIA PASTRANA Confirmed By:REINIER VIEIRA MD
[2018-08-26] MEDS: SULFAMETHOXAZOLE/TRIMETHOPRIM 800MG/160MG D.S. TABLET PO SCH (13:51)
[2018-08-26] MEDS ORDERED: ACETAMINOPHEN 325 MG TABLET (FP) PO PRN (14:09)
[2018-08-26] MEDS: ALBUTEROL SO4 2.5/IPRATROPIUM 0.5 INH SOL 3 ML VIAL.NEB. NEB SCH ×3 (18:40→19:38)
--- NOTE | 2018-08-26 18:49 | ED.PROV ---
Physicial Exam I saw and examined the patient. - Vital Signs Last Vital Signs Temp Pulse Resp BP Pulse Ox 100.2 F H 80 16 112/56 L 95 08/26/18 13:55 08/26/18 13:55 08/26/18 13:55 08/26/18 13:55 08/26/18 08:12 Procedures - Consent Consent obtained: Unable to obtain - Intubation Time of Intubation: 20:45 Intubation Method: orotracheal Blade used: Mac Tube Size (Fr): 7.0 Medications: Etomidate, Rocuronium Tube position @ lip (cm): 22 Tube position confirmed by: Direct visualization, CO2 detector, Chest x-ray, Breath sounds Breath Sounds after Intubation: equal Intubation Complications: no complications Post Intubation Xray: Yes Critical Care Time/MDM Note Total Critical Care Time: 120 (acute respiratory failure) Critical Care Statement: The care of this patient involved high complexity decision making to prevent further life threatening deterioration of the patient 's condition and/or to evaluate & treat vital organ system(s) failure or risk of failure. - Medical Decision Making Note: 08/26/18 18:47 at approx 645pm, called up for respiratory distress and Hypoxia in summary 78 YOF with h/o HTN, HLD, CAD s/p Stent, L- Breast Ca (Stage 1, RT, 1999) with fall and admitted for hyponatremia. +smoker history, but not currently. Code status: Full code no prior echos in system, no known pulmonary conditions known to patient reviewed admission note, labs - hyponatremia noted. CXR clear as of 08/25/18 - no edema, no infiltrate. VS noted for tachypnea, hypoxia to 88%. normotensive PE: In moderate respiratory distress, +tachycardic, diffuse wheezing noted, abdomen soft and nontender, WWP, no edema. venous stasis changes in BLE. placed on nasal cannula 4L with improvement of SpO2 95%. however, still tachypneic CXR, EKG, basic labs, trop, chem panel and VBG ordered duonebs x3 to open airway, reassess - however she went into SVT in 160s, and increased WOB; rate control with diltiazem 10mg IV, with mild effect. EKG revealed acute SVT rate controlled with diltiazem 10mg IV (held off on adenosine in case of underlying undiagnosed pulmonary/obstructive pulmonary disease) VBG with severe acidosis of 7.06, CO2 significantly elevated, will get ABG to evaluate accurate CO2/bicarb CXR with pulmonary edema, and significant pulmonary vascular congestion. alexey for strict I/Os stop IVF which were running at 75cc/hr since 10AM (x 10 hours). also treating for acute alcohol w/d, IV ativan prn for w/d sx. no meds given here and monitored. ordered for thiamine and folate for supplementation on bipap x 30 minutes, no response, tiring out, increased WOB and severe acidosis. ABG confirms acute respiratory acidosis with CO2 retention and pH 7.11. emergently intubated for airway protection and acute respiratory failure 2/2 hypoxia and hypercarbia. see procedure note - no complications. RSI with naida/etomidate to maintain hemodynamics. subsequently hypotensive, tachycardia to 120s now. on fentanyl and versed pushes prn for sedation. peripheral norepi gtt - peripheral IV ok for temporary pressors, needs central line once in ICU with resources available. Goal SBP >90 and MAP >65, low dose norepi for now. Acute PE on the differential with hospitalization, hemodynamic compromise and hypoxia - needs CTA when stabilized at [facility]. more likely Acute flash pulmonary edema 2/2 fluid overload and suspected poor cardiovascular reserve. -holding lasix and nitro gtt due to hypotension transfer to [facility] Tele vs ICU depending on med level spoke with Carla Garcia, about case, situation and updates spoke with Dr Torres, updated on results and transfer via ambulance, ACLS on vent/pressors. NOKira Travis Waterman (son) notified, left message and called, updated with clinical course and state/transfer to ICU for higher level of care.. 08/26/18 21:22
[2018-08-26] MEDS ORDERED: dilTIAZem HCL 50 MG/10 ML - 10 ML VIAL ONE (19:05)
[2018-08-26] MEDS ORDERED: diazePAM CARPU-JECT 10 MG/2 ML DISP.SYRIN IVPUSH ONE (19:43)
[2018-08-26] MEDS ORDERED: dilTIAZem HCL 50 MG/10 ML - 10 ML VIAL IVPUSH ONE (19:43)
[2018-08-26 19:49] LABS: BASO % 0.1 % (0-2.0); EOS % 0.8 % (0-4.5); HEMATOCRIT 36.8 % (32.4-45.2); HEMOGLOBIN 11.7 GM/dl (10.7-15.3); LYMPH % 25.6 % (8-40); MCH 33.1 pg (25.7-33.7); MCHC 31.8 g/dl (32.0-36.0); MEAN CELL VOLUME 104.3 fl (80-96); MEAN PLT VOLUME 8.1 fl (7.5-11.1); MONO % 5.5 % (3.8-10.2); PLATELET COUNT 175 K/MM3 (134-434); RBC 3.53 M/mm3 (3.60-5.2); RDW 14.3 % (11.6-15.6); WHITE BLOOD COUNT 8.9 K/mm3 (4.0-10.8)
[2018-08-26 19:57] LABS: ANION GAP 13 MMOL/L (8-16); BLOOD UREA NITROGEN 17 mg/dl (7-18); CALCIUM 8.4 mg/dl (8.5-10); CHLORIDE 98 mmol/L (98-107); CO2 18 mmol/L (21-32); CREATININE 1.2 mg/dl (0.55-1.3); GLUCOSE,RANDOM 186 mg/dl (74-106); POTASSIUM 4.7 mmol/L (3.5-5.1); SODIUM 129 mmol/L (136-145)
[2018-08-26 20:03] LABS: VENOUS PO2 29.8 mmHg (28-48)
[2018-08-26 20:06] LABS: VENOUS PC02 67.8 mmHg (38-52); VENOUS PH 7.06 (7.32-7.42)
[2018-08-26] MEDS ORDERED: FOLIC ACID 1 MG TABLET (FP) PO ONE (20:06)
[2018-08-26] MEDS ORDERED: THIAMINE HCL 200 MG/2 ML VIAL IVPB ONE (20:06)
[2018-08-26] MEDS ORDERED: LORazepam 2 MG/ML SDV VIAL ONE (20:06)
[2018-08-26] MEDS ORDERED: NITROGLYCERIN 25MG/D5W 250ML 25 MG/250 ML ML IVPB SCH (20:15)
[2018-08-26] MEDS ORDERED: FUROSEMIDE 40 MG/4 ML INJECTABLE VIAL ONE (20:24)
[2018-08-26] MEDS ORDERED: FUROSEMIDE 40 MG/4 ML INJECTABLE VIAL IVPUSH ONE (20:26)
--- NOTE | 2018-08-26 20:48 | HOSP ---
Subjective - Review of Symptoms Events since last encounter: Hospitalist Encounter Notified by Dr. Doshi that the patient is in respiratory distress secondary to Acute Pulmonary Edema. Patient currently at [facility], will arrange transfer to [facility] Discussed with Dr. Robbie Torres, ICU resident who accepted the case Will assess the patient when she arrives to ICU Plan: Transfer to ICU Pulmonary: Yes: Dyspnea Physical Examination Vital Signs: Vital Signs Temperature 98.5 F 08/26/18 18:40 Pulse Rate 162 H 08/26/18 18:55 Respiratory Rate 28 H 08/26/18 18:55 Blood Pressure 156/89 08/26/18 18:55 O2 Sat by Pulse Oximetry (%) 98 08/26/18 19:53 Constitutional: Yes: No Distress, Other (intubated and sedated) Eyes: Yes: Conjunctiva Clear HENT: Yes: WNL, Atraumatic, Normocephalic Neck: Yes: WNL, Supple, Trachea Midline Cardiovascular: Yes: Tachycardia, S1, S2. No: JVD Respiratory: Yes: Mechanically Ventilated Gastrointestinal: Yes: Normal Bowel Sounds, Soft ...Rectal Exam: Yes: Deferred Edema: No Peripheral Pulses WNL: Yes Integumentary: Yes: Skin Tear (right leg) Neurological: Yes: Other (intubated and sedated) Psychiatric: Yes: Other (intubated and sedated) Labs: CBC, BMP 08/26/18 19:30 08/26/18 19:30 Hospitalist Encounter Assessment: This is a 78 y/o woman PMHx of: HTN, HLD, CAD s/p Stent, L- Breast Ca (Stage 1, RT, 1999), Vaginal Cyst rupture. Who presents to the ED with generalized weakness, shakiness and difficulty ambulating. Patient was being treated for Hyponatremia with NS fluids. Patient was found to be in Acute Respiratory Distress. After being placed on 4LNC and given Duonebs, she subsequently went into SVT. She was treated with Cardizem 10mg IV for rate control. Patient was placed on NIPPV without improvement. ABG-respiratory acidosis with a pH 7.11, pCO2 51.2. Patient was intubated by Dr. Marialuisa Doshi. Patient became hypotensive and was placed on IV pressors. She was transported to ICU, on arrival she was found to be tachycardiac on Dopamine peripherally. Central line was placed by Robbie Rivera and Norepinephrine was restarted. Will continue to monitor and update the Day Team in the am. Critical Care Total Critical Care Time (in minutes): 32 Critical Care Statement: The care of this patient involved high complexity decision making to prevent further life threatening deterioration of the patient 's condition and/or to evaluate & treat vital organ system(s) failure or risk of failure.
[2018-08-26 20:51] LABS: ARTERIAL BLD GAS O2 SATURATION 96.7 % (90-98.9); ARTERIAL BLOOD GAS PCO2 51.2 mmHg (35-45)
[2018-08-26 20:52] LABS: ALLENS TEST POSITIVE
[2018-08-26 20:57] LABS: ARTERIAL BLOOD GAS BASE EXCESS -13.7 meq/l (-2-2); ARTERIAL BLOOD GAS pH 7.11 (7.35-7.45)
[2018-08-26] MEDS ORDERED: ROCURONIUM BROMIDE 50 MG/5 ML VIAL IVPUSH ONE (21:19)
[2018-08-26] MEDS ORDERED: ETOMIDATE 40 MG/20 ML VIAL IVPUSH ONE (21:20)
[2018-08-26] MEDS ORDERED: NOREPINEPHRINE BITARTRATE 4,000 MCG in DEXTROSE 5%-WATER - 496 ML IV SCH (21:30)
[2018-08-26] MEDS ORDERED: DOPAMINE 400 MG/D5W - 400,000 MCG/250 ML INFUS.BAG IVPB SCH (23:30)
--- NOTE | 2018-08-27 01:07 | CONSULT ---
Consult Consult Specialty:: ICU Reason for Consultation:: Acute respiratory failure requiring intubation. - History of Present Illness History of Present Illness: 78 y/o woman PMHx of HTN, HLD, CAD s/p Stent, L- Breast Ca (Stage 1, RT, 1999), Vaginal Cyst rupture who presented to [place] [facility] with generalized weakness , shakiness and difficulty ambulating found to be hyponatremic. She was given IV fluids to correct sodium and today she was found in acute respiratory distress. She was placed on 4L NC and given duoneb treatments but subsequently went into SVT. She was given diltiazem 10mg IV to control rate. She was then placed on NIPPV but failed to improve. Her blood gases showed acidosis with pH of 7.11 and patient was subsequently intubated. Once intubated patient became hypotensive and required pressors. Peripheral norepinephrine was initially started and then switched to Dopamine. She was then transported to ICU. When she arrived BP was stable but tachycardic. Central line was consented and placed. Norepinephrine was restarted. - History Source History Provided By: Medical Record Limitations to Obtaining History: Intubated - Past Medical History Cardio/Vascular: Yes: CAD, HTN, Hyperlipdemia Reproductive: Yes: Postmenopausal, Other (ruptured vaginalcyst. ) Heme/Onc: Yes: Cancer (breast cancer) Psych: Yes: Other (alcohol abuse) - Past Surgical History Past Surgical History: Yes: Breast Biopsy, Cholecystectomy, Joint Replacement ( right and left hips ), Stent - Alcohol/Substance Use Hx Alcohol Use: No (nightly) - Smoking History Smoking history: Current every day smoker Have you smoked in the past 12 months: Yes Aproximately how many cigarettes per day: 2 - Social History Usual Living Arrangement: Alone ADL: Independent History of Recent Travel: No <Jf Torres - Last Filed: 08/27/18 00:53> Home Medications <Jf Torres - Last Filed: 08/27/18 00:53> <Art Gabriel - Last Filed: 08/27/18 01:47> - Allergies Allergies/Adverse Reactions: Allergies Allergy/AdvReac Type Severity Reaction Status Date / Time Stock Ragweed Pollen Mixture Allergy Intermediate Cough Verified 08/25/18 17:29 No Known Drug Allergies Allergy Verified 08/25/18 17:29 - Home Medications Home Medications: Ambulatory Orders Atenolol [Tenormin -] 50 mg PO DAILY #0 08/02/11 Fenofibrate [Lipofen] 145 mg PO DAILY 05/15/13 Aspirin [ASA -] 81 mg PO DAILY 02/23/17 Multivitamin [One Daily] 1 each PO DAILY 02/23/17 Ramipril 10 mg PO DAILY capsule 02/23/17 Rosuvastatin Calcium [Crestor] 10 mg PO DAILY tablet 02/23/17 Cephalexin [Keflex] 500 mg PO BID 08/25/18 Sulfamethoxazole/Trimethoprim [Bactrim Ds -] 1 tab PO BID 08/25/18 Family Disease History - Family Disease History Family History: Unable to Obtain Family Disease History: CA: Sister (cervical cnacer 30) <Jf Torres - Last Filed: 08/27/18 00:53> Review of Systems Unable to obtain ROS, reason: intubated <Jf Torres - Last Filed: 08/27/18 00:53> Physical Exam Vital Signs: Vital Signs Temperature 98.5 F 08/26/18 18:40 Pulse Rate 114 H 08/26/18 21:00 Respiratory Rate 24 H 08/27/18 00:26 Blood Pressure 98/56 L 08/26/18 21:30 O2 Sat by Pulse Oximetry (%) 100 08/26/18 20:45 Constitutional: Yes: No Distress Eyes: Yes: Conjunctiva Clear HENT: Yes: Atraumatic, Normocephalic Neck: Yes: Supple, Trachea Midline Cardiovascular: Yes: Tachycardia, S1, S2. No: JVD Respiratory: Yes: Mechanically Ventilated Gastrointestinal: Yes: Normal Bowel Sounds, Soft Edema: No Integumentary: Yes: Skin Tear (right leg) Psychiatric: Yes: Other (intubated and sedated.) Labs: CBC, BMP 08/26/18 19:30 08/26/18 19:30 <Jf Torres - Last Filed: 08/27/18 00:53> Vital Signs: Vital Signs Temperature 99.4 F 08/27/18 00:20 Pulse Rate 118 H 08/27/18 00:30 Respiratory Rate 24 H 08/27/18 00:50 Blood Pressure 104/57 L 08/27/18 00:30 O2 Sat by Pulse Oximetry (%) 100 08/27/18 00:50 Labs: CBC, BMP 08/26/18 19:30 08/26/18 19:30 <Art Gabriel - Last Filed: 08/27/18 01:47> Imaging - Results Chest X-ray: Report Reviewed, Image Reviewed <Jf Torres - Last Filed: 08/27/18 00:53> Assessment/Plan A:78 y/o woman PMHx of HTN, HLD, CAD s/p Stent, L- Breast Ca (Stage 1, RT, 1999) , Vaginal Cyst rupture [facility] and difficulty [facility]ulating found to be hyponatremic. She is admitted to ICU for management of acute respiratory failure requiring intubation. Plan: NEURO: * Patient is intubated and sedated. * sedation with Versed Drip. PULM: * Acute hypoxic hypercapnic respiratory failure secondary to acute pulmonary edema. * mechanically ventilated AC * TV 400 , Fio2 50% , peep 5 , rate 24 * Given her history of cancer she is hypercoaguable and at risk for PE. Consider CTA CV: * hypotensive requiring Norepinephrine to maintain MAP >65 * Antihypertensives held. will restart PRN. ID: * Currently on Bactrim DS for UTI. * cultures pending. RENAL: * hyponatremia 129 * hold on IVF for acute fluid overload. FEN: * No IVF at this time * Hyponatremia - will replete with NS PPx: * Heparin SQ TID 5000 units. * PPI. DISPO:Will continue to monitor in ICU. <Jf Torres - Last Filed: 08/27/18 00:53> Procedure Note Procedure: Right IJ central line 1% lido, 3ml Dark non pulsitile blood noted 2 sutures used to hold in place no complications <Art Gabriel - Last Filed: 08/27/18 01:47>
[2018-08-27] MEDS ORDERED: MIDAZOLAM 100 MG/100 ML MG IVPB ONE ×2 (01:31→16:49)
--- NOTE | 2018-08-27 01:45 | PDOC ---
History of Present Illness - General Chief Complaint: Pain Stated Complaint: BACK PAIN, "UNSTEADY" Time Seen by Provider: 08/25/18 19:16 Past History - Past Medical History Allergies/Adverse Reactions: Allergies Allergy/AdvReac Type Severity Reaction Status Date / Time Stock Ragweed Pollen Mixture Allergy Intermediate Cough Verified 08/25/18 17:29 No Known Drug Allergies Allergy Verified 08/25/18 17:29 Home Medications: Ambulatory Orders Atenolol [Tenormin -] 50 mg PO DAILY #0 08/02/11 Fenofibrate [Lipofen] 145 mg PO DAILY 05/15/13 Aspirin [ASA -] 81 mg PO DAILY 02/23/17 Multivitamin [One Daily] 1 each PO DAILY 02/23/17 Ramipril 10 mg PO DAILY capsule 02/23/17 Rosuvastatin Calcium [Crestor] 10 mg PO DAILY tablet 02/23/17 Cephalexin [Keflex] 500 mg PO BID 08/25/18 Sulfamethoxazole/Trimethoprim [Bactrim Ds -] 1 tab PO BID 08/25/18 Anemia: No Asthma: No Cancer: Yes (LEFT BREAST 1999) Cardiac Disorders: Yes (CAD) CVA: No COPD: No CHF: No Dementia: No Diabetes: No GI Disorders: Yes (H/O COLONIC POLYPS) Disorders: No HTN: Yes Hypercholesterolemia: Yes Liver Disease: No Seizures: No Thyroid Disease: No Other medical history: VULVAR CYST - Surgical History Abdominal Surgery: No Appendectomy: Yes (2003) Cardiac Surgery: Yes (ANGIOPLASTY/STENT PLACEMENT) Cholecystectomy: Yes (2004) Lung Surgery: No Neurologic Surgery: No Orthopedic Surgery: Yes (RIGHT HIP REPLACEMENT 1999/LEFT THR) - Reproductive History LMP comment: 78 YEARS OLD - Suicide/Smoking/Psychosocial Hx Smoking Status: No Smoking History: Current every day smoker Have you smoked in the past 12 months: Yes Number of Cigarettes Smoked Daily: 2 If you are a former smoker, when did you quit?: 2009 Information on smoking cessation initiated: No 'Breaking Loose' booklet given: 10/05/17 Hx Alcohol Use: No (nightly) Drug/Substance Use Hx: No Substance Use Type: Alcohol Hx Substance Use Treatment: No *Physical Exam - Vital Signs Last Vital Signs Temp Pulse Resp BP Pulse Ox 99.4 F 118 H 24 H 104/57 L 100 08/27/18 00:20 08/27/18 00:30 08/27/18 00:50 08/27/18 00:30 08/27/18 00:50 Moderate Sedation - Procedure Monitoring Vital Signs: Procedure Monitoring Vital Signs Temperature 99.4 F 08/27/18 00:20 Pulse Rate 118 H 08/27/18 00:30 Respiratory Rate 24 H 08/27/18 00:50 Blood Pressure 104/57 L 08/27/18 00:30 O2 Sat by Pulse Oximetry (%) 100 08/27/18 00:50 Procedures - Central Line Central Line Lumen: triple Central Line Position: internal jugular (R) Anesthesia: 1% Lidocaine Amount of anesthesia (ccs): 2 Complications: none Post Central Line Insertion: sutured ED Treatment Course - LABORATORY CBC & Chemistry Diagram: 08/26/18 19:30 08/26/18 19:30 - ADDITIONAL ORDERS Additional order review: 08/25/18 19:38 RBC 3.31 L MCV 102.7 H MCHC 32.5 RDW 13.6 MPV 7.9 Neutrophils % 92.8 H Lymphocytes % 4.5 L Monocytes % 1.4 L Eosinophils % 1.0 Basophils % 0.3 - Medications Given in the ED: ED Medications Discontinued Medications Generic Name Dose Route Start Last Admin Trade Name Freq PRN Reason Stop Dose Admin Albuterol/Ipratropium 1 amp 08/26/18 18:45 08/26/18 19:38 Duoneb - NEB 08/26/18 19:31 Not Given Q15M [facility] Diltiazem HCl 10 mg 08/26/18 19:43 08/26/18 19:05 Cardizem Injection - IVPUSH 08/26/18 19:44 10 mg ONCE ONE Administration Fentanyl 50 mcg 08/26/18 21:29 08/26/18 23:10 Sublimaze Injection - IVPUSH 08/26/18 21:30 50 mcg ONCE ONE Administration Sodium Chloride 1,000 mls @ 1,000 mls/hr 08/25/18 20:25 08/25/18 20:30 Normal Saline - IV 08/25/18 21:24 1,000 mls/hr .Q1H ONE Administration Ceftriaxone Sodium 50 mls @ 100 mls/hr 08/26/18 05:54 08/26/18 06:22 Ceftriaxone 1 Gm-D5w Bag IVPB 08/26/18 06:23 100 mls/hr ONCE ONE Administration Protocol Lorazepam 1 mg 08/26/18 20:04 08/26/18 20:11 Ativan Injection - IVPUSH 08/26/18 20:05 1 mg ONCE ONE Administration Magnesium Sulfate 2 gm 08/26/18 05:30 08/26/18 05:49 Magnesium Sulfate IVPB 08/26/18 05:31 2 gm ONCE ONE Administration *DC/Admit/Observation/Transfer Diagnosis at time of Disposition: Hyponatremia - Discharge Dispostion Condition at time of disposition: Stable - Referrals - Patient Instructions - Post Discharge Activity
[2018-08-27] MEDS ORDERED: NOREPINEPHRINE BITARTRATE 4 MG/4 ML ML IV ONE (01:47)
[2018-08-27] MEDS: NOREPINEPHRINE BITARTRATE 8,000 MCG in DEXTROSE 5%-WATER - 492 ML IV SCH (02:10)
[2018-08-27] MEDS: MIDAZOLAM 100 MG in SODIUM CHLORIDE 100 ML IVPB SCH ×2 (02:11→16:51)
[2018-08-27 06:53] LABS: HEMATOCRIT 31.1 % (32.4-45.2); HEMOGLOBIN 10.7 GM/dL (10.7-15.3); MCH 34.7 pg (25.7-33.7); MCHC 34.5 g/dl (32.0-36.0); MEAN CELL VOLUME 100.6 fl (80-96); MEAN PLT VOLUME 8.2 fl (7.5-11.1); PLATELET COUNT 122 K/MM3 (134-434); RBC 3.09 M/mm3 (3.60-5.2); RDW 14.5 % (11.6-15.6); WHITE BLOOD COUNT 9.6 K/mm3 (4.0-10.0)
[2018-08-27] MEDS ORDERED: PT OWN MED DRAWER 7, Y5N ONE ×3 (09:00→22:20)
[2018-08-27 09:26] LABS: ALBUMIN 2.3 g/dl (3.4-5.0); ALK PHOS 79 U/L (45-117); ANION GAP 10 MMOL/L (8-16); BILIRUBIN,TOTAL 0.7 mg/dL (0.2-1); BLOOD UREA NITROGEN 26 mg/dL (7-18); CALCIUM 7.2 mg/dL (8.5-10.1); CHLORIDE 102 mmol/L (98-107); CO2 22 mmol/L (21-32); CREATININE 1.6 mg/dL (0.55-1.3); GLUCOSE,RANDOM 152 mg/dL (74-106); POTASSIUM 4.1 mmol/L (3.5-5.1); SGOT/AST 218 U/L (15-37); SGPT/ALT 60 U/L (13-61); SODIUM 134 mmol/L (136-145); TOT PROT 5.1 g/dl (6.4-8.2)
[2018-08-27] MEDS ORDERED: CHLORHEXIDINE GLUCONATE 0.12% 15ML CUP MM ONE (09:30)
[2018-08-27] MEDS ORDERED: CEFTRIAXONE 1 GM in DEXTROSE 5%-WATER - 50 ML IVPB SCH (10:00)
[2018-08-27] MEDS ORDERED: ASPIRIN 81 MG CHEWABLE TABLETS PO SCH (10:00)
[2018-08-27] MEDS ORDERED: cefTRIAXone SODIUM 1 GM VIAL ONE (10:48)
[2018-08-27] MEDS ORDERED: DEXTROSE 5%-WATER - 50 ML IVPB ONE (10:48)
[2018-08-27 10:51] LABS: ARTERIAL BLD GAS O2 SATURATION 99.4 % (90-98.9); ARTERIAL BLOOD GAS BASE EXCESS -4.5 meq/l (-2-2); ARTERIAL BLOOD GAS PCO2 36.3 mmHg (35-45); ARTERIAL BLOOD GAS pH 7.36 (7.35-7.45)
[2018-08-27 10:53] LABS: ALLENS TEST POSITIVE
[2018-08-27] MEDS: MUPIROCIN 2% TOPICAL OINTMENT FOR DECOLONIZATION NS SCH ×2 (10:54→22:26)
[2018-08-27] MEDS ORDERED: SODIUM CHLORIDE 1,000 ML IV SCH (11:30)
--- NOTE | 2018-08-27 11:35 | PN ---
Teaching Attending Note Name of Resident: Cipriano Rutledge ATTENDING PHYSICIAN STATEMENT I saw and evaluated the patient. I reviewed the resident's note and discussed the case with the resident. I agree with the resident's findings and plan as documented. SUBJECTIVE: Patient seen and examined in the ICU. Remains inubated and sedated. 8 mcq NE for hemodynamic support. AC Mode of vent, 50% FiO2. Elevated Peak pressures and obstruction on flow loops. CXR: chronic changes. ETT in good position. Intake & Output 08/24/18 08/25/18 08/26/18 08/27/18 23:59 23:59 23:59 23:59 Intake Total 1000 550 337 Output Total 300 Balance 1000 550 37 Weight 99 lb 102 lb 14.4 oz Last Vital Signs Temp Pulse Resp BP Pulse Ox 98.4 F 64 24 H 96/40 L 100 08/27/18 10:00 08/27/18 11:00 08/27/18 11:00 08/27/18 11:00 08/27/18 08:07 Active Medications Acetaminophen (Tylenol -) 650 mg PO Q6H PRN PRN Reason: FEVER Aspirin (Asa -) 81 mg PO DAILY [facility] Chlorhexidine Gluconate (Hibiclens For Decolonization -) 1 applic TP HS [facility] Chlorhexidine Gluconate (Peridex -) 15 ml MM BID [facility] Fenofibric Acid (Trilipix -) 135 mg PO DAILY [facility] Last Admin: 08/26/18 11:04 Dose: 135 mg Ceftriaxone Sodium 1 gm/ (Dextrose) 50 mls @ 100 mls/hr IVPB DAILY [facility]; Protocol Last Admin: 08/27/18 10:52 Dose: 100 mls/hr Midazolam HCl 100 mg/ Sodium (Chloride) 100 mls @ 1 mls/hr IVPB TITR [facility]; Protocol Last Titration: 08/27/18 07:01 Dose: 5 mg/hr, 5 mls/hr Norepinephrine Bitartrate 8, (000 mcg/ Dextrose) 500 mls @ 18.75 mls/hr IV TITR [facility]; Protocol Last Titration: 08/27/18 03:35 Dose: 8 mcg/min, 30 mls/hr Methylprednisolone Sodium Succinate (Solu-Medrol -) 40 mg IVPUSH Q6H-IV [facility] Multivitamins/Minerals/Vitamin C (Tab-A-Vit -) 1 tab PO DAILY [facility] Last Admin: 08/26/18 10:49 Dose: 1 tab Mupirocin (Bactroban Ointment (For Decolonization) -) 1 applic NS BID [facility] Stop: 09/01/18 09:59 Last Admin: 08/27/18 10:54 Dose: 1 applic Rosuvastatin Calcium (Crestor -) 10 mg PO HS [facility] Trimethoprim/Sulfamethoxazole (Bactrim Ds -) 1 each PO BID [facility] Last Admin: 08/26/18 13:51 Dose: 1 each Constitutional: Yes: Intubated and sedated Eyes: Yes: Conjunctiva Clear HENT: Yes: Atraumatic, Normocephalic Neck: Yes: Supple, Trachea Midline Cardiovascular: Yes: Tachycardia, S1, S2. No: JVD Respiratory: Yes: Mechanically Ventilated, bilateral expiratory wheeze Gastrointestinal: Yes: Normal Bowel Sounds, Soft Edema: No Integumentary: Yes: Skin Tear (right leg) Psychiatric: Yes: Other (intubated and sedated.) Labs: Laboratory Results - last 24 hr 08/26/18 08/26/18 08/26/18 10:30 10:30 19:20 WBC RBC Hgb Hct MCV MCH MCHC RDW Plt Count MPV Absolute Neuts (auto) Neutrophils % Lymphocytes % Monocytes % Eosinophils % Basophils % Anticoagulation Therapy Puncture Site ABG pH ABG pCO2 at Pt Temp ABG pO2 at Pt Temp ABG HCO3 ABG O2 Sat (Measured) ABG O2 Content ABG Base Excess Tim Test VBG pH 7.06 L* POC VBG pCO2 67.8 H* POC VBG pO2 29.8 Mixed VBG HCO3 18.2 L O2 Delivery Device Oxygen Flow Rate Vent Mode Vent Rate Mechanical Rate PEEP Pressure Support Vent Sodium Potassium Chloride Carbon Dioxide Anion Gap BUN Creatinine Creat Clearance w eGFR Random Glucose Calcium Magnesium Total Bilirubin AST ALT Alkaline Phosphatase Troponin I Total Protein Albumin Urine Osmolality 585 Ur Random Sodium 114 Ur Random Chloride 119 08/26/18 08/26/18 08/26/18 19:30 19:30 19:30 WBC 8.9 RBC 3.53 L Hgb 11.7 Hct 36.8 MCV 104.3 H MCH 33.1 MCHC 31.8 L RDW 14.3 Plt Count 175 MPV 8.1 Absolute Neuts (auto) 6.0 Neutrophils % 68.0 Lymphocytes % 25.6 Monocytes % 5.5 Eosinophils % 0.8 Basophils % 0.1 Anticoagulation Therapy Puncture Site ABG pH ABG pCO2 at Pt Temp ABG pO2 at Pt Temp ABG HCO3 ABG O2 Sat (Measured) ABG O2 Content ABG Base Excess Tim Test VBG pH POC VBG pCO2 POC VBG pO2 Mixed VBG HCO3 O2 Delivery Device Oxygen Flow Rate Vent Mode Vent Rate Mechanical Rate PEEP Pressure Support Vent Sodium 129 L Potassium 4.7 Chloride 98 Carbon Dioxide 18 L Anion Gap 13 BUN 17 Creatinine 1.2 Creat Clearance w eGFR 43.68 Random Glucose 186 H Calcium 8.4 L Magnesium Total Bilirubin AST ALT Alkaline Phosphatase Troponin I 0.14 H Total Protein Albumin Urine Osmolality Ur Random Sodium Ur Random Chloride 08/26/18 08/27/18 08/27/18 20:10 06:00 06:00 WBC 9.6 RBC 3.09 L Hgb 10.7 Hct 31.1 L MCV 100.6 H MCH 34.7 H MCHC 34.5 RDW 14.5 Plt Count 122 L D MPV 8.2 Absolute Neuts (auto) Neutrophils % Lymphocytes % Monocytes % Eosinophils % Basophils % Anticoagulation Therapy No Result Required. Puncture Site Right radial ABG pH 7.11 L* ABG pCO2 at Pt Temp 51.2 H ABG pO2 at Pt Temp 126.0 H ABG HCO3 15.4 L ABG O2 Sat (Measured) 96.7 ABG O2 Content 14.9 L ABG Base Excess -13.7 L* Tim Test Positive VBG pH POC VBG pCO2 POC VBG pO2 Mixed VBG HCO3 O2 Delivery Device Bipap Oxygen Flow Rate 50% Vent Mode No Result Required. Vent Rate 14 Mechanical Rate No Result Required. PEEP Pressure Support Vent No Result Required. Sodium 134 L Potassium 4.1 Chloride 102 Carbon Dioxide 22 Anion Gap 10 BUN 26 H Creatinine 1.6 H Creat Clearance w eGFR 31.34 Random Glucose 152 H Calcium 7.2 L Magnesium 2.0 Total Bilirubin 0.7 AST 218 H ALT 60 Alkaline Phosphatase 79 Troponin I Total Protein 5.1 L Albumin 2.3 L Urine Osmolality Ur Random Sodium Ur Random Chloride 08/27/18 10:40 WBC RBC Hgb Hct MCV MCH MCHC RDW Plt Count MPV Absolute Neuts (auto) Neutrophils % Lymphocytes % Monocytes % Eosinophils % Basophils % Anticoagulation Therapy Puncture Site Right radial ABG pH 7.36 D ABG pCO2 at Pt Temp 36.3 D ABG pO2 at Pt Temp 176.0 H* D ABG HCO3 19.9 L ABG O2 Sat (Measured) 99.4 H ABG O2 Content 14.7 L ABG Base Excess -4.5 L Tim Test Positive VBG pH POC VBG pCO2 POC VBG pO2 Mixed VBG HCO3 O2 Delivery Device Oxygen Flow Rate 50 Vent Mode Vent Rate Mechanical Rate PEEP 5.0 Pressure Support Vent 400 Sodium Potassium Chloride Carbon Dioxide Anion Gap BUN Creatinine Creat Clearance w eGFR Random Glucose Calcium Magnesium Total Bilirubin AST ALT Alkaline Phosphatase Troponin I Total Protein Albumin Urine Osmolality Ur Random Sodium Ur Random Chloride Assessment/Plan Acute Respiratory Failure due to AE of COPD Low clinical suspicion of Pulmonary edema Septic Shock: (?) PNA (?) UTI HTN HLD CAD s/p PCI Left Breast Ca (Stage 1, RT, 1999) Smoker AC Mode of vent, adjustments made BD TX Medrol ABX: ID consult Check CVP Wean NE Follow ABG Strict I & O Hold anti-hypertensive agents Requires continued ICU monitoring Dr Macedo Critical care time spent in reviewing chart, evaluating patient and formulating plan - 36 minutes.
--- NOTE | 2018-08-27 11:48 | PN ---
Progress Note (short form) - Note Progress Note: OG tube placed Placement was checked by auscultation and CXR Confirmed in place and ready to use.
[2018-08-27] MEDS: MULTIVITAMINS (DAILY MVI) TABLET (FP) PO SCH ×2 (11:50→11:55)
[2018-08-27] MEDS: SULFAMETHOXAZOLE/TRIMETHOPRIM 800MG/160MG D.S. TABLET PO SCH ×2 (11:54→13:37)
[2018-08-27] MEDS: FENOFIBRIC ACID 135 MG CAP PO SCH (11:55)
[2018-08-27] MEDS: CHLORHEXIDINE GLUCONATE 0.12% 15ML CUP MM SCH ×3 (11:57→22:28)
--- NOTE | 2018-08-27 13:36 | PN ---
Physical Exam: SUBJECTIVE: Patient seen and examined Patient seen and examined by me. Currently intubated and sedated and on pressors consisting of 8 mcg NE. Ventilator changes were made after obstructive pattern ascertained on the vent. Will follow on pulmonary status and wean as tolerated. OBJECTIVE: Vital Signs Period Temp Pulse Resp BP Sys/Prakash Pulse Ox Last 24 Hr 97.1 F-100.2 F 62-162 16-28 74-156/32-89 88-100 Constitutional: NAD, currently sedated. Eyes: PERRLA, aniteric, conjunctiva clear HENT: Atraumatic, Normocephalic Neck: Supple, Trachea Midline Cardiovascular: Tachycardia, S1, S2. Negative JVD Respiratory: Mechanically Ventilated. Inspiratory stridor sounds in the RUL field. Gastrointestinal: Normal Bowel Sounds, Soft Edema: No Integumentary: Bruising throughout both legs bilaterally Psychiatric: Intubated and sedated. Laboratory Results - last 24 hr 08/26/18 08/26/18 08/26/18 19:20 19:30 19:30 WBC 8.9 RBC 3.53 L Hgb 11.7 Hct 36.8 MCV 104.3 H MCH 33.1 MCHC 31.8 L RDW 14.3 Plt Count 175 MPV 8.1 Absolute Neuts (auto) 6.0 Neutrophils % 68.0 Lymphocytes % 25.6 Monocytes % 5.5 Eosinophils % 0.8 Basophils % 0.1 Anticoagulation Therapy Puncture Site ABG pH ABG pCO2 at Pt Temp ABG pO2 at Pt Temp ABG HCO3 ABG O2 Sat (Measured) ABG O2 Content ABG Base Excess Tim Test VBG pH 7.06 L* POC VBG pCO2 67.8 H* POC VBG pO2 29.8 Mixed VBG HCO3 18.2 L O2 Delivery Device Oxygen Flow Rate Vent Mode Vent Rate Mechanical Rate PEEP Pressure Support Vent Sodium 129 L Potassium 4.7 Chloride 98 Carbon Dioxide 18 L Anion Gap 13 BUN 17 Creatinine 1.2 Creat Clearance w eGFR 43.68 Random Glucose 186 H Calcium 8.4 L Magnesium Total Bilirubin AST ALT Alkaline Phosphatase Troponin I Total Protein Albumin 08/26/18 08/26/18 08/27/18 19:30 20:10 06:00 WBC 9.6 RBC 3.09 L Hgb 10.7 Hct 31.1 L MCV 100.6 H MCH 34.7 H MCHC 34.5 RDW 14.5 Plt Count 122 L D MPV 8.2 Absolute Neuts (auto) Neutrophils % Lymphocytes % Monocytes % Eosinophils % Basophils % Anticoagulation Therapy No Result Required. Puncture Site Right radial ABG pH 7.11 L* ABG pCO2 at Pt Temp 51.2 H ABG pO2 at Pt Temp 126.0 H ABG HCO3 15.4 L ABG O2 Sat (Measured) 96.7 ABG O2 Content 14.9 L ABG Base Excess -13.7 L* Tim Test Positive VBG pH POC VBG pCO2 POC VBG pO2 Mixed VBG HCO3 O2 Delivery Device Bipap Oxygen Flow Rate 50% Vent Mode No Result Required. Vent Rate 14 Mechanical Rate No Result Required. PEEP Pressure Support Vent No Result Required. Sodium Potassium Chloride Carbon Dioxide Anion Gap BUN Creatinine Creat Clearance w eGFR Random Glucose Calcium Magnesium Total Bilirubin AST ALT Alkaline Phosphatase Troponin I 0.14 H Total Protein Albumin 08/27/18 08/27/18 06:00 10:40 WBC RBC Hgb Hct MCV MCH MCHC RDW Plt Count MPV Absolute Neuts (auto) Neutrophils % Lymphocytes % Monocytes % Eosinophils % Basophils % Anticoagulation Therapy Puncture Site Right radial ABG pH 7.36 D ABG pCO2 at Pt Temp 36.3 D ABG pO2 at Pt Temp 176.0 H* D ABG HCO3 19.9 L ABG O2 Sat (Measured) 99.4 H ABG O2 Content 14.7 L ABG Base Excess -4.5 L Tim Test Positive VBG pH POC VBG pCO2 POC VBG pO2 Mixed VBG HCO3 O2 Delivery Device Oxygen Flow Rate 50 Vent Mode Vent Rate Mechanical Rate PEEP 5.0 Pressure Support Vent 400 Sodium 134 L Potassium 4.1 Chloride 102 Carbon Dioxide 22 Anion Gap 10 BUN 26 H Creatinine 1.6 H Creat Clearance w eGFR 31.34 Random Glucose 152 H Calcium 7.2 L Magnesium 2.0 Total Bilirubin 0.7 AST 218 H ALT 60 Alkaline Phosphatase 79 Troponin I Total Protein 5.1 L Albumin 2.3 L Active Medications Generic Name Dose Route Start Last Admin Trade Name Freq PRN Reason Stop Dose Admin Acetaminophen 650 mg 08/26/18 14:09 Tylenol - PO Q6H PRN FEVER Aspirin 81 mg 08/27/18 10:00 08/27/18 11:53 Asa - PO 81 mg DAILY [facility] Administration Chlorhexidine Gluconate 1 applic 08/27/18 22:00 Hibiclens For Decolonization - TP HS [facility] Chlorhexidine Gluconate 15 ml 08/27/18 11:15 08/27/18 11:57 Peridex - MM 15 ml BID [facility] Administration Fenofibric Acid 135 mg 08/26/18 11:00 08/27/18 11:55 Trilipix - PO 135 mg DAILY [facility] Administration Ceftriaxone Sodium 1 gm/ 50 mls @ 100 mls/hr 08/27/18 10:00 08/27/18 10:52 Dextrose IVPB 100 mls/hr DAILY [facility] Administration Protocol Midazolam HCl 100 mg/ Sodium 100 mls @ 1 mls/hr 08/27/18 01:30 08/27/18 07:01 Chloride IVPB 5 mg/hr TITR [facility] 5 mls/hr Titration Protocol 1 MG/HR Norepinephrine Bitartrate 8, 500 mls @ 18.75 mls/hr 08/27/18 01:30 08/27/18 03:35 000 mcg/ Dextrose IV 8 mcg/min TITR [facility] 30 mls/hr Titration Protocol 5 MCG/MIN Sodium Chloride 1,000 mls @ 75 mls/hr 08/27/18 11:30 08/27/18 11:56 Normal Saline - IV 75 mls/hr ASDIR [facility] Administration Methylprednisolone Sodium Succinate 40 mg 08/27/18 12:00 Solu-Medrol - IVPUSH Q6H-IV [facility] Multivitamins/Minerals/Vitamin C 1 tab 08/26/18 10:45 08/27/18 11:55 Tab-A-Vit - PO 1 tab DAILY [facility] Administration Mupirocin 1 applic 08/27/18 10:00 08/27/18 10:54 Bactroban Ointment (For Decolonization) - NS 09/01/18 09:59 1 applic BID [facility] Administration Rosuvastatin Calcium 10 mg 08/27/18 22:00 Crestor - PO HS [facility] Trimethoprim/Sulfamethoxazole 1 each 08/26/18 13:15 08/27/18 11:54 Bactrim Ds - PO 1 each BID [facility] Administration ASSESSMENT/PLAN: 78 yo F with a hx of HTN, HLD, CAD s/p stent, L breast CA (stage 1, RT, 1999), and COPD presented initially to [facility] for lethargy with subsequent UTI and hyponatremia on labs. Overnight, she developed SOB and subsequently intubated followed with pressors start due to persistent hypotension and transferred to [facility]. Lines: RIJ central line (inserted 08/26/2018; day 2), Clark catheter (inserted ; day 2) Plan: NEURO: Patient is currently intubated and sedated on versed drip Will monitor for mental status changes PULM: Acute hypoxic hypercapnic respiratory failure secondary to acute pulmonary edema vs COPD exacerbation. Given the CXR results with fast resolution of congestive changes with 40 mg of lasix, likely secondary to COPD exacerbation. -Mechanically ventillated: 20 RR/TV 400/FiO2 40%/PEEP 5 -Started on solumedrol 40 mg QID -Will continue to wean off vent as pulmonary status improves CV: Patient was hypotensive s/p intubation requiring pressors. -Continue levo at 8 mcg to maintain MAP >65. -Borderline MAP at 8mcg, ordered ECHO to evaluate cardiac function -Home medications for anti-hypertensives ID: Presented initially with a UTI with elevated WBC. Currently on bactrim and ceftriaxone for UTI. Will switch to azithromycin along with ceftriaxone for treatment of community acquired pneumonia -Cultures pending -ID consulted RENAL: Initially hyponatremic on presentation at 129. Today's labs show 134. Will give 75 cc/hr of NS 0.9% Trend BUN/Cr which today is 26/1.6 If worsening function, will consult nephrology FEN: Tube feeding with jevity PPx: Heparin SQ TID 5000 units. PPI. DISPO: will monitor in the ICU and continue to wean off pressors and vent. Visit type - Emergency Visit Emergency Visit: Yes ED Registration Date: 08/26/18 Care time: The patient presented to the Emergency Department on the above date and was hospitalized for further evaluation of their emergent condition. - New Patient This patient is new to me today: Yes Date on this admission: 08/27/18 - Critical Care Critical Care patient: Yes Total Critical Care Time (in minutes): 36 Critical Care Statement: The care of this patient involved high complexity decision making to prevent further life threatening deterioration of the patient 's condition and/or to evaluate & treat vital organ system(s) failure or risk of failure. - Discharge Referral Referred to [facility] Med [facility] No
[2018-08-27] MEDS: methylPREDNISolone NA SUCC 40 MG/1 ML VIAL IVPUSH SCH ×3 (13:41→22:30)
[2018-08-27] MEDS ORDERED: THIAMINE HCL 200 MG/2 ML VIAL IVPB ONE (14:05)
[2018-08-27] MEDS ORDERED: FOLIC ACID 1 MG TABLET (FP) PO ONE (14:06)
--- NOTE | 2018-08-27 16:34 | PN ---
Physical Exam: SUBJECTIVE: Patient seen and examined OBJECTIVE: Vital Signs Period Temp Pulse Resp BP Sys/Prakash Pulse Ox Last 24 Hr 97.1 F-100.3 F 62-162 19-28 74-156/32-89 88-100 GENERAL: The patient is awake, alert, and fully oriented, in no acute distress. HEAD: Normal with no signs of trauma. EYES: PERRL, extraocular movements intact, sclera anicteric, conjunctiva clear. No ptosis. ENT: Ears normal, nares patent, oropharynx clear without exudates, moist mucous membranes. NECK: Trachea midline, full range of motion, supple. LUNGS: Breath sounds equal, clear to auscultation bilaterally, no wheezes, no crackles, no accessory muscle use. HEART: Regular rate and rhythm, S1, S2 without murmur, rub or gallop. ABDOMEN: Soft, nontender, nondistended, normoactive bowel sounds, no guarding, no rebound, no hepatosplenomegaly, no masses. EXTREMITIES: 2+ pulses, warm, well-perfused, no edema. NEUROLOGICAL: Cranial nerves II through XII grossly intact. Normal speech, gait not observed. PSYCH: Normal mood, normal affect. SKIN: Warm, dry, normal turgor, no rashes or lesions noted Laboratory Results - last 24 hr 08/26/18 08/26/18 08/26/18 19:20 19:30 19:30 WBC 8.9 RBC 3.53 L Hgb 11.7 Hct 36.8 MCV 104.3 H MCH 33.1 MCHC 31.8 L RDW 14.3 Plt Count 175 MPV 8.1 Absolute Neuts (auto) 6.0 Neutrophils % 68.0 Lymphocytes % 25.6 Monocytes % 5.5 Eosinophils % 0.8 Basophils % 0.1 Anticoagulation Therapy Puncture Site ABG pH ABG pCO2 at Pt Temp ABG pO2 at Pt Temp ABG HCO3 ABG O2 Sat (Measured) ABG O2 Content ABG Base Excess Tim Test VBG pH 7.06 L* POC VBG pCO2 67.8 H* POC VBG pO2 29.8 Mixed VBG HCO3 18.2 L O2 Delivery Device Oxygen Flow Rate Vent Mode Vent Rate Mechanical Rate PEEP Pressure Support Vent Sodium 129 L Potassium 4.7 Chloride 98 Carbon Dioxide 18 L Anion Gap 13 BUN 17 Creatinine 1.2 Creat Clearance w eGFR 43.68 Random Glucose 186 H Calcium 8.4 L Magnesium Total Bilirubin AST ALT Alkaline Phosphatase Troponin I Total Protein Albumin Influenza A (Rapid) Influenza B (Rapid) 08/26/18 08/26/18 08/27/18 19:30 20:10 06:00 WBC 9.6 RBC 3.09 L Hgb 10.7 Hct 31.1 L MCV 100.6 H MCH 34.7 H MCHC 34.5 RDW 14.5 Plt Count 122 L D MPV 8.2 Absolute Neuts (auto) Neutrophils % Lymphocytes % Monocytes % Eosinophils % Basophils % Anticoagulation Therapy No Result Required. Puncture Site Right radial ABG pH 7.11 L* ABG pCO2 at Pt Temp 51.2 H ABG pO2 at Pt Temp 126.0 H ABG HCO3 15.4 L ABG O2 Sat (Measured) 96.7 ABG O2 Content 14.9 L ABG Base Excess -13.7 L* Tim Test Positive VBG pH POC VBG pCO2 POC VBG pO2 Mixed VBG HCO3 O2 Delivery Device Bipap Oxygen Flow Rate 50% Vent Mode No Result Required. Vent Rate 14 Mechanical Rate No Result Required. PEEP Pressure Support Vent No Result Required. Sodium Potassium Chloride Carbon Dioxide Anion Gap BUN Creatinine Creat Clearance w eGFR Random Glucose Calcium Magnesium Total Bilirubin AST ALT Alkaline Phosphatase Troponin I 0.14 H Total Protein Albumin Influenza A (Rapid) Influenza B (Rapid) 08/27/18 08/27/18 08/27/18 06:00 10:40 11:30 WBC RBC Hgb Hct MCV MCH MCHC RDW Plt Count MPV Absolute Neuts (auto) Neutrophils % Lymphocytes % Monocytes % Eosinophils % Basophils % Anticoagulation Therapy Puncture Site Right radial ABG pH 7.36 D ABG pCO2 at Pt Temp 36.3 D ABG pO2 at Pt Temp 176.0 H* D ABG HCO3 19.9 L ABG O2 Sat (Measured) 99.4 H ABG O2 Content 14.7 L ABG Base Excess -4.5 L Tim Test Positive VBG pH POC VBG pCO2 POC VBG pO2 Mixed VBG HCO3 O2 Delivery Device Oxygen Flow Rate 50 Vent Mode Vent Rate Mechanical Rate PEEP 5.0 Pressure Support Vent 400 Sodium 134 L Potassium 4.1 Chloride 102 Carbon Dioxide 22 Anion Gap 10 BUN 26 H Creatinine 1.6 H Creat Clearance w eGFR 31.34 Random Glucose 152 H Calcium 7.2 L Magnesium 2.0 Total Bilirubin 0.7 AST 218 H ALT 60 Alkaline Phosphatase 79 Troponin I Total Protein 5.1 L Albumin 2.3 L Influenza A (Rapid) Negative Influenza B (Rapid) Negative Active Medications Generic Name Dose Route Start Last Admin Trade Name Freq PRN Reason Stop Dose Admin Acetaminophen 650 mg 08/26/18 14:09 Tylenol - PO Q6H PRN FEVER Aspirin 81 mg 08/27/18 10:00 08/27/18 11:53 Asa - PO 81 mg DAILY [facility] Administration Chlorhexidine Gluconate 1 applic 08/27/18 22:00 Hibiclens For Decolonization - TP HS [facility] Chlorhexidine Gluconate 15 ml 08/27/18 11:15 08/27/18 11:57 Peridex - MM 15 ml BID [facility] Administration Fenofibric Acid 135 mg 08/26/18 11:00 08/27/18 11:55 Trilipix - PO 135 mg DAILY [facility] Administration Ceftriaxone Sodium 1 gm/ 50 mls @ 100 mls/hr 08/27/18 10:00 08/27/18 10:52 Dextrose IVPB 100 mls/hr DAILY [facility] Administration Protocol Midazolam HCl 100 mg/ Sodium 100 mls @ 1 mls/hr 08/27/18 01:30 08/27/18 07:01 Chloride IVPB 5 mg/hr TITR [facility] 5 mls/hr Titration Protocol 1 MG/HR Norepinephrine Bitartrate 8, 500 mls @ 18.75 mls/hr 08/27/18 01:30 08/27/18 03:35 000 mcg/ Dextrose IV 8 mcg/min TITR [facility] 30 mls/hr Titration Protocol 5 MCG/MIN Sodium Chloride 1,000 mls @ 75 mls/hr 08/27/18 11:30 08/27/18 11:56 Normal Saline - IV 75 mls/hr ASDIR [facility] Administration Azithromycin 500 mg in 250 mls @ 250 mls/hr 08/27/18 15:30 Zithromax 500mg Ivpb (Pre-Docked) IVPB DAILY [facility] Methylprednisolone Sodium Succinate 40 mg 08/27/18 12:00 08/27/18 13:41 Solu-Medrol - IVPUSH 40 mg Q6H-IV [facility] Administration Multivitamins/Minerals/Vitamin C 1 tab 08/26/18 10:45 08/27/18 11:55 Tab-A-Vit - PO 1 tab DAILY [facility] Administration Mupirocin 1 applic 08/27/18 10:00 08/27/18 10:54 Bactroban Ointment (For Decolonization) - NS 09/01/18 09:59 1 applic BID [facility] Administration Rosuvastatin Calcium 10 mg 08/27/18 22:00 Crestor - PO HS [facility] ASSESSMENT/PLAN: This is a 78 y/o F W HTN, HLD, CAD s/p Stent, P/W generalized weakness, shakiness and difficulty ambulating. She was found to be hyponatermic and was initiated on IV fluids , at the time of admission she has no edema and CXR was clear, with no respiratory complaints. 10 hours after admission she developed severe respiratory distress( only 750 cc ns was given), dropped BP and developed pulmonary edema and SVT was given DIlt, her Bp dropped and she intubated due to unstable VS and initiated on Levophed. SHe was also found to have acute hypercapnic , hypoxic respiratory failure and respiratory acidosis. Acute respiratory failure: unclear if it is all due to COPD exacerbation at this time as the episode happened so suddenly and can not R/O cardiac etiologies such as ischemic or arrythmia as the cause of the complaints. she has elevated troponin which can be both the results VS the etiology of the complaints ( demand ischemic in the setting of tachycardia or ischemic event as cause of the complaints) If on ly COPD exacerbation she is intubated at this time and getting steroids. Will need F/U cardiac markers and EKG, is tele while in ICU Will need bedside TTE stat today. Will ask for cardiology consult to further evaluate the patient if troponin tapering up will treat for NSTEMI. C/W statin, If not contra indicated should be changed to high potency Send lipid panel Keep K>4, Mg>2 shock: on levophed and is intubated, will monitor and taper as tolerated, ischemic VS metabolic cause, if metabolic should improve as the acid base has improved ETOH abuse: concern for Etoh withdrawal patient has been monitored for withdrawal. she is on midazolam at this time. CAMERON: mild will monitor could be in the setting of episode of hypotension, I/O monitoring, F/U BMP Hyponatremia: no clear etiology, if she is Etoh abuser can be in the setting of potomania VS decreaed Po intake VS SIADH, urine lytes and Na levels would have helped. now improving. No clear source of infection at this time but as patient is unstable will C/W antibiotics pending results of the CX and urine tests. FC DVT PPX:heparin SQ Visit type - Emergency Visit Emergency Visit: Yes ED Registration Date: 08/26/18 Care time: The patient presented to the Emergency Department on the above date and was hospitalized for further evaluation of their emergent condition. - New Patient This patient is new to me today: No - Critical Care Critical Care patient: No - Discharge Referral Referred to [facility] Med [facility].: No
[2018-08-27] MEDS: AZITHROMYCIN IVPB 500 MG/250 ML BAG IVPB SCH (16:43)
--- NOTE | 2018-08-27 16:43 | EKG ---
Test Reason : Blood Pressure : / mmHG Vent. Rate : 162 BPM Atrial Rate : 163 BPM P-R Int : 000 ms QRS Dur : 102 ms QT Int : 296 ms P-R-T Axes : 000 -49 098 degrees QTc Int : 485 ms SUPRAVENTRICULAR TACHYCARDIA LEFT AXIS DEVIATION ANTEROSEPTAL INFARCT , AGE UNDETERMINED ABNORMAL ECG WHEN COMPARED WITH ECG OF 25-AUG-2018 19:55, VENT. RATE HAS INCREASED NOTE RHYTHM CHANGE Confirmed by FRAN BARRIENTOS, SHRUTHI ([id number]) on 08/27/2018 4:42:54 PM Referred By: MD HANK BUCKLEY Confirmed By:SHRUTHI PETERS MD
[2018-08-27] MEDS ORDERED: ACETAMINOPHEN 650 MG/20.3 ML ORAL SOLUTION (CUPS) PO PRN (18:15)
[2018-08-27 19:30] LABS: MAGNESIUM 1.9 mg/dL (1.8-2.4); PHOSPHOROUS 2.6 mg/dL (2.5-4.9)
[2018-08-27] MEDS ORDERED: PROPOFOL 1,000,000 MCG/100 ML VIAL ONE (20:35)
[2018-08-27] MEDS ORDERED: HEPARIN NA (PORCINE) 5,000 UNITS/ML 1ML VIAL IVPUSH PRN ×2 (20:54)
[2018-08-27 21:19] LABS: BASO % 0.2 % (0-2.0); HEMATOCRIT 30.3 % (32.4-45.2); HEMOGLOBIN 10.6 GM/dL (10.7-15.3); LYMPH % 5.6 % (8-40); MCH 35.3 pg (25.7-33.7); MEAN CELL VOLUME 100.7 fl (80-96); MEAN PLT VOLUME 8.2 fl (7.5-11.1); MONO % 1.9 % (3.8-10.2); NEUT % 92.3 % (42.8-82.8); PLATELET COUNT 118 K/MM3 (134-434); RBC 3.01 M/mm3 (3.60-5.2); RDW 14.3 % (11.6-15.6)
[2018-08-27 21:31] LABS: INR 1.23 (0.83-1.09); PROTHROMBIN TIME (PATIENT) 14.6 SEC (9.7-13.0)
[2018-08-27 21:34] LABS: ACTIVATED PTT 29.8 SECONDS (25.2-36.5)
[2018-08-27 22:14] LABS: MACROCYTOSIS 1+; PLATELET ESTIMATE SLT DECREASE
[2018-08-27] MEDS: PROPOFOL 1,000,000 MCG/100 ML VIAL IVPB SCH (22:15)
[2018-08-27] MEDS: CHLORHEXIDINE GLUCONATE 4% CLEANSER FOR DECOLONIZATION TP SCH (22:21)
[2018-08-27] MEDS: ROSUVASTATIN CA 10 MG TABLET (FP) PO SCH (22:26)
[2018-08-27] MEDS: HEPARIN - 25,000 UNIT in SODIUM CHLORIDE 495 ML IV SCH (22:32)
[2018-08-27] MEDS: SODIUM CHLORIDE 1,000 ML IV SCH (22:33)
[2018-08-28] MEDS: methylPREDNISolone NA SUCC 40 MG/1 ML VIAL IVPUSH SCH ×4 (04:22→22:10)
[2018-08-28 05:51] LABS: HEMATOCRIT 29.6 % (32.4-45.2); HEMOGLOBIN 10.2 GM/dL (10.7-15.3); MCH 34.8 pg (25.7-33.7); MCHC 34.6 g/dl (32.0-36.0); MEAN CELL VOLUME 100.6 fl (80-96); MEAN PLT VOLUME 8.3 fl (7.5-11.1); PLATELET COUNT 114 K/MM3 (134-434); RBC 2.94 M/mm3 (3.60-5.2); RDW 14.4 % (11.6-15.6); WHITE BLOOD COUNT 4.1 K/mm3 (4.0-10.0)
[2018-08-28 06:09] LABS: ALLENS TEST POSITIVE; ARTERIAL BLOOD GAS BASE EXCESS -3.6 meq/l (-2-2); ARTERIAL BLOOD GAS PCO2 38.3 mmHg (35-45); ARTERIAL BLOOD GAS pH 7.36 (7.35-7.45)
[2018-08-28 06:28] LABS: ALBUMIN 2.1 g/dl (3.4-5.0); ALK PHOS 64 U/L (45-117); ANION GAP 6 MMOL/L (8-16); BILIRUBIN,TOTAL 0.5 mg/dL (0.2-1); BLOOD UREA NITROGEN 26 mg/dL (7-18); CHLORIDE 107 mmol/L (98-107); CO2 23 mmol/L (21-32); CREATININE 1.1 mg/dL (0.55-1.3); GLUCOSE,RANDOM 170 mg/dL (74-106); POTASSIUM 4.5 mmol/L (3.5-5.1); SGOT/AST 267 U/L (15-37); SGPT/ALT 85 U/L (13-61); SODIUM 136 mmol/L (136-145); TOT PROT 4.9 g/dl (6.4-8.2)
[2018-08-28 06:48] LABS: CALCIUM 6.8 mg/dL (8.5-10.1)
--- NOTE | 2018-08-28 07:29 | PN ---
Physical Exam: SUBJECTIVE: Patient seen and examined Patient was examined and seen by me. ABG improved significantly and troponins downtrended. Patient will have a spontaneous breathing trial today. no acute overnight events OBJECTIVE: Vital Signs Period Temp Pulse Resp BP Sys/Prakash Pulse Ox Last 24 Hr 97.3 F-100.5 F 42-93 19-28 94-139/32-99 99-100 Constitutional: NAD, currently sedated. Eyes: PERRLA, aniteric, conjunctiva clear HENT: Atraumatic, Normocephalic Neck: Supple, Trachea Midline Cardiovascular: Tachycardia, S1, S2. Negative JVD Respiratory: Mechanically Ventilated. Inspiratory stridor sounds in the RUL field. Gastrointestinal: Normal Bowel Sounds, Soft Edema: No Integumentary: Bruising throughout both legs bilaterally Psychiatric: Intubated and sedated. Laboratory Results - last 24 hr 08/27/18 08/27/18 08/27/18 06:00 10:40 11:30 WBC RBC Hgb Hct MCV MCH MCHC RDW Plt Count MPV Absolute Neuts (auto) Total Counted Neutrophils % Neutrophils % (Manual) Band Neutrophils % Lymphocytes % Lymphocytes % (Manual) Monocytes % Monocytes % (Manual) Eosinophils % Basophils % Myelocytes % (Man) Nucleated RBC % Differential Comment Platelet Estimate Platelet Comment Polychromasia Macrocytosis PT with INR INR PTT (Actin FS) Puncture Site Right radial ABG pH 7.36 D ABG pCO2 at Pt Temp 36.3 D ABG pO2 at Pt Temp 176.0 H* D ABG HCO3 19.9 L ABG O2 Sat (Measured) 99.4 H ABG O2 Content 14.7 L ABG Base Excess -4.5 L Tim Test Positive O2 Delivery Device Oxygen Flow Rate 50 Vent Mode Vent Rate Mechanical Rate PEEP 5.0 Pressure Support Vent 400 Sodium 134 L Potassium 4.1 Chloride 102 Carbon Dioxide 22 Anion Gap 10 BUN 26 H Creatinine 1.6 H Creat Clearance w eGFR 31.34 POC Glucometer Random Glucose 152 H Calcium 7.2 L Phosphorus Magnesium 2.0 Total Bilirubin 0.7 AST 218 H ALT 60 Alkaline Phosphatase 79 Creatine Kinase Troponin I Total Protein 5.1 L Albumin 2.3 L Influenza A (Rapid) Negative Influenza B (Rapid) Negative 08/27/18 08/27/18 08/27/18 18:00 21:00 21:00 WBC 5.0 RBC 3.01 L Hgb 10.6 L Hct 30.3 L MCV 100.7 H MCH 35.3 H MCHC 35.0 RDW 14.3 Plt Count 118 L MPV 8.2 Absolute Neuts (auto) 4.6 Total Counted 100 Neutrophils % 92.3 H D Neutrophils % (Manual) 83.0 H Band Neutrophils % 11.0 Lymphocytes % 5.6 L D Lymphocytes % (Manual) 4.0 L Monocytes % 1.9 L Monocytes % (Manual) 1 L Eosinophils % 0.0 D Basophils % 0.2 Myelocytes % (Man) 1 Nucleated RBC % 0 Differential Comment Man diff performed Platelet Estimate Slt decrease Platelet Comment Polychromasia 1+ Macrocytosis 1+ PT with INR 14.60 H INR 1.23 H PTT (Actin FS) 29.8 Puncture Site ABG pH ABG pCO2 at Pt Temp ABG pO2 at Pt Temp ABG HCO3 ABG O2 Sat (Measured) ABG O2 Content ABG Base Excess Tim Test O2 Delivery Device Oxygen Flow Rate Vent Mode Vent Rate Mechanical Rate PEEP Pressure Support Vent Sodium Potassium Chloride Carbon Dioxide Anion Gap BUN Creatinine Creat Clearance w eGFR POC Glucometer Random Glucose Calcium Phosphorus 2.6 Magnesium 1.9 Total Bilirubin AST ALT Alkaline Phosphatase Creatine Kinase Troponin I 3.04 H* Total Protein Albumin Influenza A (Rapid) Influenza B (Rapid) 08/28/18 08/28/18 08/28/18 05:30 05:30 05:30 WBC 4.1 RBC 2.94 L Hgb 10.2 L Hct 29.6 L MCV 100.6 H MCH 34.8 H MCHC 34.6 RDW 14.4 Plt Count 114 L MPV 8.3 Absolute Neuts (auto) Total Counted Neutrophils % Neutrophils % (Manual) Band Neutrophils % Lymphocytes % Lymphocytes % (Manual) Monocytes % Monocytes % (Manual) Eosinophils % Basophils % Myelocytes % (Man) Nucleated RBC % Differential Comment Platelet Estimate Platelet Comment Polychromasia Macrocytosis PT with INR INR PTT (Actin FS) 67.9 H Puncture Site ABG pH ABG pCO2 at Pt Temp ABG pO2 at Pt Temp ABG HCO3 ABG O2 Sat (Measured) ABG O2 Content ABG Base Excess Tim Test O2 Delivery Device Oxygen Flow Rate Vent Mode Vent Rate Mechanical Rate PEEP Pressure Support Vent Sodium 136 Potassium 4.5 Chloride 107 Carbon Dioxide 23 Anion Gap 6 L BUN 26 H Creatinine 1.1 Creat Clearance w eGFR 48.29 POC Glucometer Random Glucose 170 H Calcium 6.8 L* Phosphorus Magnesium Total Bilirubin 0.5 AST 267 H ALT 85 H Alkaline Phosphatase 64 Creatine Kinase 132 Troponin I 1.88 H* Total Protein 4.9 L Albumin 2.1 L Influenza A (Rapid) Influenza B (Rapid) 08/28/18 08/28/18 05:51 06:00 WBC RBC Hgb Hct MCV MCH MCHC RDW Plt Count MPV Absolute Neuts (auto) Total Counted Neutrophils % Neutrophils % (Manual) Band Neutrophils % Lymphocytes % Lymphocytes % (Manual) Monocytes % Monocytes % (Manual) Eosinophils % Basophils % Myelocytes % (Man) Nucleated RBC % Differential Comment Platelet Estimate Platelet Comment Polychromasia Macrocytosis PT with INR INR PTT (Actin FS) Puncture Site Right brachial ABG pH 7.36 ABG pCO2 at Pt Temp 38.3 ABG pO2 at Pt Temp 161.0 H* ABG HCO3 21.0 L ABG O2 Sat (Measured) 99.0 H ABG O2 Content 14.9 L ABG Base Excess -3.6 L Tim Test Positive O2 Delivery Device Mech vent Oxygen Flow Rate 40% Vent Mode A/c Vent Rate 20 Mechanical Rate Yes PEEP 5.0 Pressure Support Vent 400 Sodium Potassium Chloride Carbon Dioxide Anion Gap BUN Creatinine Creat Clearance w eGFR POC Glucometer 152 Random Glucose Calcium Phosphorus Magnesium Total Bilirubin AST ALT Alkaline Phosphatase Creatine Kinase Troponin I Total Protein Albumin Influenza A (Rapid) Influenza B (Rapid) Active Medications Generic Name Dose Route Start Last Admin Trade Name Freq PRN Reason Stop Dose Admin Acetaminophen 650 mg 08/27/18 18:15 Tylenol Oral Solution - PO Q6H PRN FEVER Aspirin 81 mg 08/28/18 10:00 Asa - PO DAILY [facility] Chlorhexidine Gluconate 1 applic 08/27/18 22:00 08/27/18 22:21 Hibiclens For Decolonization - TP 1 applic HS [facility] Administration Chlorhexidine Gluconate 15 ml 08/27/18 11:15 08/27/18 22:28 Peridex - MM 15 ml BID [facility] Administration Fenofibric Acid 135 mg 08/28/18 10:00 Trilipix - PO DAILY [facility] Heparin Sodium (Porcine) 1,000 unit 08/27/18 20:54 Heparin - IVPUSH PRN PRN Heparin Heparin Sodium (Porcine) 5,000 unit 08/27/18 20:54 Heparin - IVPUSH PRN PRN Heparin Norepinephrine Bitartrate 8, 500 mls @ 18.75 mls/hr 08/27/18 01:30 08/27/18 03:35 000 mcg/ Dextrose IV 8 mcg/min TITR [facility] 30 mls/hr Titration Protocol 5 MCG/MIN Azithromycin 500 mg in 250 mls @ 250 mls/hr 08/27/18 15:30 08/27/18 16:43 Zithromax 500mg Ivpb (Pre-Docked) IVPB 250 mls/hr DAILY [facility] Administration Propofol 1,000,000 mcg in 100 mls @ 1.4 mls/hr 08/27/18 20:45 08/27/18 22:15 Diprivan - IVPB 5 mcg/kg/min TITR [facility] 1.4 mls/hr Administration Protocol 5 MCG/KG/MIN Heparin Sodium (Porcine) 25, 500 mls @ 16 mls/hr 08/27/18 21:00 08/27/18 22: 32 000 unit/ Sodium Chloride IV 800 unit/hr TITR [facility] 16 mls/hr Administration Protocol 800 UNIT/HR Sodium Chloride 1,000 mls @ 42 mls/hr 08/27/18 21:02 08/27/18 22:33 Normal Saline - IV 42 mls/hr ASDIR [facility] Administration Ceftriaxone Sodium 1 gm/ 50 mls @ 100 mls/hr 08/28/18 10:00 Dextrose IVPB DAILY [facility] Protocol Methylprednisolone Sodium Succinate 40 mg 08/27/18 12:00 08/28/18 04:22 Solu-Medrol - IVPUSH 40 mg Q6H-IV [facility] Administration Multivitamins/Minerals/Vitamin C 1 tab 08/28/18 10:00 Tab-A-Vit - PO DAILY [facility] Mupirocin 1 applic 08/27/18 10:00 08/27/18 22:26 Bactroban Ointment (For Decolonization) - NS 09/01/18 09:59 1 applic BID [facility] Administration Rosuvastatin Calcium 10 mg 08/27/18 22:00 08/27/18 22:26 Crestor - PO 10 mg HS [facility] Administration ASSESSMENT/PLAN: 78 yo F with a hx of HTN, HLD, CAD s/p stent, L breast CA (stage 1, RT, 1999), and COPD presented initially to [facility] for [facility]argy with subsequent UTI and hyponatremia on labs. Overnight, she developed SOB and subsequently intubated followed with pressors start due to persistent hypotension and transferred to [facility] ICU. Lines: RIJ central line (inserted 08/26/2018; day 3), Clark catheter (inserted ; day 3) Plan: NEURO: Patient is currently intubated and sedated Overnight, she was exhibiting mental status changes and moving towards her ET tube; was placed on propofol in addition to versed. Today, will stop versed and wean off propofol prior to spontaneous breathing trial for planned extubation -Will monitor for mental status changes PULM: Acute hypoxic hypercapnic respiratory failure secondary to acute pulmonary edema vs COPD exacerbation. Given the CXR results with fast resolution of congestive changes with 40 mg of lasix, likely secondary to COPD exacerbation. -ABG has been reassuring for last two episodes; pH 7.36, pO2 161, pCO2 38.3, Bicarb 21. PaO2/FiO2 is 402.5. Currently saturating at 100% on ventilator, with FiO2 at 40% and PEEP at 5 -Mechanically ventillated: 20 RR/TV 400/FiO2 40%/PEEP 5 -Continue solumedrol 40 mg QID -Successfully extubated without complications and placed on venti mask 8 Liters CV: Patient was hypotensive s/p intubation requiring pressors. -Reduced levo to 2 mcg to maintain MAP >65. Weaned down from 8 mcg -ECHO to be done today -Troponin was elevated to 3.04 and now is 1.88. First troponin of 0.14 recorded on 08/26/2018 at 19:30 and second trop of 3.04 recorded at 08/27/2018 at 18:00 with a subsequent troponin of 1.88 at 5:30 on 08/28/2018. An EKG was performed at the time of the second troponin that showed poor R wave progression and inverted t wave in V2. No ST elevations or depressions noted. Cardiology was consulted. -Heparin gtt continuing -Home medications for anti-hypertensives held for now ID: Presented initially with a UTI with elevated WBC. Currently on azithromycin and ceftriazone for treatment of community acquired pneumonia Legionella urine antigen negative (lab ordered because of hyponatremia and possible earlier infiltrate on cxr) -Cultures pending -ID consulted RENAL: Initially hyponatremic on presentation at 129. Today's labs show 136. Will give 75 cc/hr of NS 0.9% CAMERON - Trending BUN/Cr which yesterday was 26/1.6 --> 26/1.1 today; CAMERON resolving If worsening function, will consult nephrology FEN: Tube feeding with jevity -Nutrition consulted PPx: Heparin SQ TID 5000 units. PPI. DISPO: will monitor in the ICU and continue to wean off pressors and vent. Visit type - Emergency Visit Emergency Visit: Yes ED Registration Date: 08/26/18 Care time: The patient presented to the Emergency Department on the above date and was hospitalized for further evaluation of their emergent condition. - New Patient This patient is new to me today: No - Critical Care Critical Care patient: Yes Total Critical Care Time (in minutes): 36 Critical Care Statement: The care of this patient involved high complexity decision making to prevent further life threatening deterioration of the patient 's condition and/or to evaluate & treat vital organ system(s) failure or risk of failure. - Discharge Referral Referred to [facility] Med [facility] No
[2018-08-28] MEDS: NOREPINEPHRINE BITARTRATE 8,000 MCG in DEXTROSE 5%-WATER - 492 ML IV SCH (08:35)
--- NOTE | 2018-08-28 09:04 | PN ---
Physical Exam: SUBJECTIVE: Patient seen and examined in the ICU. She remains intubated. versed d/c on propofol OBJECTIVE: sinus sosa 40s on clinical research monitor. recent ekg shows nsr 85 Vital Signs Period Temp Pulse Resp BP Sys/Prakash Pulse Ox Last 24 Hr 97.3 F-100.5 F 42-93 21-28 94-139/32-99 GENERAL: intubated, sedated HEAD: Normal with no signs of trauma. EYES: PERRL, extraocular movements intact, sclera anicteric, conjunctiva clear. No ptosis. ENT: Ears normal, nares patent, oropharynx clear without exudates, moist mucous membranes. NECK: Trachea midline, full range of motion, supple. LUNGS: Breath sounds equal, clear to auscultation anteriorly HEART: sinus sosa on clinical research monitor 40s ABDOMEN: Soft, nontender, nondistended, normoactive bowel sounds, no guarding EXTREMITIES: no edema, discoloration of bilateral lower extremities. NEUROLOGICAL:intubated/sedated SKIN: Warm, dry, normal turgor, no rashes or lesions noted Laboratory Results - last 24 hr 08/27/18 08/27/18 08/27/18 06:00 10:40 11:30 WBC RBC Hgb Hct MCV MCH MCHC RDW Plt Count MPV Absolute Neuts (auto) Total Counted Neutrophils % Neutrophils % (Manual) Band Neutrophils % Lymphocytes % Lymphocytes % (Manual) Monocytes % Monocytes % (Manual) Eosinophils % Basophils % Myelocytes % (Man) Nucleated RBC % Differential Comment Platelet Estimate Platelet Comment Polychromasia Macrocytosis PT with INR INR PTT (Actin FS) Puncture Site Right radial ABG pH 7.36 D ABG pCO2 at Pt Temp 36.3 D ABG pO2 at Pt Temp 176.0 H* D ABG HCO3 19.9 L ABG O2 Sat (Measured) 99.4 H ABG O2 Content 14.7 L ABG Base Excess -4.5 L Tim Test Positive O2 Delivery Device Oxygen Flow Rate 50 Vent Mode Vent Rate Mechanical Rate PEEP 5.0 Pressure Support Vent 400 Sodium 134 L Potassium 4.1 Chloride 102 Carbon Dioxide 22 Anion Gap 10 BUN 26 H Creatinine 1.6 H Creat Clearance w eGFR 31.34 POC Glucometer Random Glucose 152 H Calcium 7.2 L Phosphorus Magnesium 2.0 Total Bilirubin 0.7 AST 218 H ALT 60 Alkaline Phosphatase 79 Creatine Kinase Troponin I Total Protein 5.1 L Albumin 2.3 L Influenza A (Rapid) Negative Influenza B (Rapid) Negative 08/27/18 08/27/18 08/27/18 18:00 21:00 21:00 WBC 5.0 RBC 3.01 L Hgb 10.6 L Hct 30.3 L MCV 100.7 H MCH 35.3 H MCHC 35.0 RDW 14.3 Plt Count 118 L MPV 8.2 Absolute Neuts (auto) 4.6 Total Counted 100 Neutrophils % 92.3 H D Neutrophils % (Manual) 83.0 H Band Neutrophils % 11.0 Lymphocytes % 5.6 L D Lymphocytes % (Manual) 4.0 L Monocytes % 1.9 L Monocytes % (Manual) 1 L Eosinophils % 0.0 D Basophils % 0.2 Myelocytes % (Man) 1 Nucleated RBC % 0 Differential Comment Man diff performed Platelet Estimate Slt decrease Platelet Comment Polychromasia 1+ Macrocytosis 1+ PT with INR 14.60 H INR 1.23 H PTT (Actin FS) 29.8 Puncture Site ABG pH ABG pCO2 at Pt Temp ABG pO2 at Pt Temp ABG HCO3 ABG O2 Sat (Measured) ABG O2 Content ABG Base Excess Tim Test O2 Delivery Device Oxygen Flow Rate Vent Mode Vent Rate Mechanical Rate PEEP Pressure Support Vent Sodium Potassium Chloride Carbon Dioxide Anion Gap BUN Creatinine Creat Clearance w eGFR POC Glucometer Random Glucose Calcium Phosphorus 2.6 Magnesium 1.9 Total Bilirubin AST ALT Alkaline Phosphatase Creatine Kinase Troponin I 3.04 H* Total Protein Albumin Influenza A (Rapid) Influenza B (Rapid) 08/28/18 08/28/18 08/28/18 05:30 05:30 05:30 WBC 4.1 RBC 2.94 L Hgb 10.2 L Hct 29.6 L MCV 100.6 H MCH 34.8 H MCHC 34.6 RDW 14.4 Plt Count 114 L MPV 8.3 Absolute Neuts (auto) Total Counted Neutrophils % Neutrophils % (Manual) Band Neutrophils % Lymphocytes % Lymphocytes % (Manual) Monocytes % Monocytes % (Manual) Eosinophils % Basophils % Myelocytes % (Man) Nucleated RBC % Differential Comment Platelet Estimate Platelet Comment Polychromasia Macrocytosis PT with INR INR PTT (Actin FS) 67.9 H Puncture Site ABG pH ABG pCO2 at Pt Temp ABG pO2 at Pt Temp ABG HCO3 ABG O2 Sat (Measured) ABG O2 Content ABG Base Excess Tim Test O2 Delivery Device Oxygen Flow Rate Vent Mode Vent Rate Mechanical Rate PEEP Pressure Support Vent Sodium 136 Potassium 4.5 Chloride 107 Carbon Dioxide 23 Anion Gap 6 L BUN 26 H Creatinine 1.1 Creat Clearance w eGFR 48.29 POC Glucometer Random Glucose 170 H Calcium 6.8 L* Phosphorus Magnesium Total Bilirubin 0.5 AST 267 H ALT 85 H Alkaline Phosphatase 64 Creatine Kinase 132 Troponin I 1.88 H* Total Protein 4.9 L Albumin 2.1 L Influenza A (Rapid) Influenza B (Rapid) 08/28/18 08/28/18 05:51 06:00 WBC RBC Hgb Hct MCV MCH MCHC RDW Plt Count MPV Absolute Neuts (auto) Total Counted Neutrophils % Neutrophils % (Manual) Band Neutrophils % Lymphocytes % Lymphocytes % (Manual) Monocytes % Monocytes % (Manual) Eosinophils % Basophils % Myelocytes % (Man) Nucleated RBC % Differential Comment Platelet Estimate Platelet Comment Polychromasia Macrocytosis PT with INR INR PTT (Actin FS) Puncture Site Right brachial ABG pH 7.36 ABG pCO2 at Pt Temp 38.3 ABG pO2 at Pt Temp 161.0 H* ABG HCO3 21.0 L ABG O2 Sat (Measured) 99.0 H ABG O2 Content 14.9 L ABG Base Excess -3.6 L Tim Test Positive O2 Delivery Device Mech vent Oxygen Flow Rate 40% Vent Mode A/c Vent Rate 20 Mechanical Rate Yes PEEP 5.0 Pressure Support Vent 400 Sodium Potassium Chloride Carbon Dioxide Anion Gap BUN Creatinine Creat Clearance w eGFR POC Glucometer 152 Random Glucose Calcium Phosphorus Magnesium Total Bilirubin AST ALT Alkaline Phosphatase Creatine Kinase Troponin I Total Protein Albumin Influenza A (Rapid) Influenza B (Rapid) Active Medications Generic Name Dose Route Start Last Admin Trade Name Freq PRN Reason Stop Dose Admin Acetaminophen 650 mg 08/27/18 18:15 Tylenol Oral Solution - PO Q6H PRN FEVER Aspirin 81 mg 08/28/18 10:00 Asa - PO DAILY [facility] Chlorhexidine Gluconate 1 applic 08/27/18 22:00 08/27/18 22:21 Hibiclens For Decolonization - TP 1 applic HS [facility] Administration Chlorhexidine Gluconate 15 ml 08/27/18 11:15 08/27/18 22:28 Peridex - MM 15 ml BID [facility] Administration Fenofibric Acid 135 mg 08/28/18 10:00 Trilipix - PO DAILY [facility] Heparin Sodium (Porcine) 1,000 unit 08/27/18 20:54 Heparin - IVPUSH PRN PRN Heparin Heparin Sodium (Porcine) 5,000 unit 08/27/18 20:54 Heparin - IVPUSH PRN PRN Heparin Norepinephrine Bitartrate 8, 500 mls @ 18.75 mls/hr 08/27/18 01:30 08/28/18 08:35 000 mcg/ Dextrose IV Not Given TITR [facility] Protocol 5 MCG/MIN Azithromycin 500 mg in 250 mls @ 250 mls/hr 08/27/18 15:30 08/27/18 16:43 Zithromax 500mg Ivpb (Pre-Docked) IVPB 250 mls/hr DAILY [facility] Administration Propofol 1,000,000 mcg in 100 mls @ 1.4 mls/hr 08/27/18 20:45 08/28/18 08:00 Diprivan - IVPB 15 mcg/kg/min TITR [facility] 4.201 mls/hr Titration Protocol 5 MCG/KG/MIN Heparin Sodium (Porcine) 25, 500 mls @ 16 mls/hr 08/27/18 21:00 08/27/18 22: 32 000 unit/ Sodium Chloride IV 800 unit/hr TITR [facility] 16 mls/hr Administration Protocol 800 UNIT/HR Sodium Chloride 1,000 mls @ 42 mls/hr 08/27/18 21:02 08/27/18 22:33 Normal Saline - IV 42 mls/hr ASDIR [facility] Administration Ceftriaxone Sodium 1 gm/ 50 mls @ 100 mls/hr 08/28/18 10:00 Dextrose IVPB DAILY [facility] Protocol Methylprednisolone Sodium Succinate 40 mg 08/27/18 12:00 08/28/18 04:22 Solu-Medrol - IVPUSH 40 mg Q6H-IV [facility] Administration Multivitamins/Minerals/Vitamin C 1 tab 08/28/18 10:00 Tab-A-Vit - PO DAILY [facility] Mupirocin 1 applic 08/27/18 10:00 08/27/18 22:26 Bactroban Ointment (For Decolonization) - NS 09/01/18 09:59 1 applic BID [facility] Administration Rosuvastatin Calcium 10 mg 08/27/18 22:00 08/27/18 22:26 Crestor - PO 10 mg HS [facility] Administration ASSESSMENT/PLAN: Patient is a 78 year old female with a significant past medical history of HTN, HLD, CAD s/p stent, L breast CA (stage 1) and COPD. [facility]ally [facility]TI and hyponatremia on labs. Developed shortenss of breath and intubated for airway protection. Transferred to [facility] ICU and started on pressors for hypotension. Pulmonary: Acute hypoxic hypercapnic respiratory failure secondary Cause due to flash pulmonary edema vs ? COPD exacerbation. Intubated, started on solumendrol IV. Monitor respiratory status and wean off as tolerated Card: Echo ordered to evaluate cardiac function. Unclear etiology fo acute shortness of breath Monitor BP Sinus bradycardia on clinical research monitor Likely secondary to sedatives. Elevated troponins Possible demand ischemia. cardiology following. ID: Rule out pneumonia On Ceftriaxone ID following Renal: Initially hyponatremic, now resolved. fen Tube feeding with jevity monitor electrolytes prophy: Heparin SQ TID 5000 units. PPI. ICU Visit type - Emergency Visit Emergency Visit: Yes ED Registration Date: 08/26/18 Care time: The patient presented to the Emergency Department on the above date and was hospitalized for further evaluation of their emergent condition. - New Patient This patient is new to me today: Yes Date on this admission: 08/28/18 - Critical Care Critical Care patient: Yes Total Critical Care Time (in minutes): 60 Critical Care Statement: The care of this patient involved high complexity decision making to prevent further life threatening deterioration of the patient 's condition and/or to evaluate & treat vital organ system(s) failure or risk of failure.
[2018-08-28] MEDS ORDERED: cefTRIAXone SODIUM 1 GM VIAL ONE (10:04)
[2018-08-28] MEDS ORDERED: DEXTROSE 5%-WATER - 50 ML IVPB ONE (10:05)
[2018-08-28] MEDS: ASPIRIN 81 MG CHEWABLE TABLETS PO SCH (10:08)
[2018-08-28] MEDS: MULTIVITAMINS (DAILY MVI) TABLET (FP) PO SCH (10:08)
[2018-08-28] MEDS: AZITHROMYCIN IVPB 500 MG/250 ML BAG IVPB SCH (10:09)
[2018-08-28] MEDS: CHLORHEXIDINE GLUCONATE 0.12% 15ML CUP MM SCH ×2 (10:09→22:14)
[2018-08-28] MEDS: FENOFIBRIC ACID 135 MG CAP PO SCH (10:14)
[2018-08-28] MEDS ORDERED: PT OWN MED DRAWER 7, Y5N ONE (10:14)
[2018-08-28] MEDS: MUPIROCIN 2% TOPICAL OINTMENT FOR DECOLONIZATION NS SCH ×2 (10:14→22:11)
[2018-08-28] MEDS: CEFTRIAXONE 1 GM in DEXTROSE 5%-WATER - 50 ML IVPB SCH (11:00)
--- NOTE | 2018-08-28 11:50 | CON.CARD ---
Consult Consult Specialty:: Cardiology Referred by:: Critical Care team Reason for Consultation:: Cardiac evaluation - History of Present Illness Chief Complaint: Respiratory failure History of Present Illness: Patient is a 78 year old female with underlying history of HTN, hypercholesterolemia, CAD s/p PCI/stent (followed by Dr. Severiano Bond, [facility]), breast CA s/p lumpectomy and radiation therapy, vaginal cyst rupture who initially presented to ED at [facility] with generalized weakness , shaking and difficulty ambulating. She was jia in with the assistance of her and her son. She has been having unsteady gait and had fallen in the bathroom last , but she did not seek medical attention at that time. During the course of admission, she was intubated due to acute respiratory distress and acidosis. She was initially placed on NIPPV but without improvement and was subsequently intubated and transferred to ICU. She was also given pressor support for hypotension and now on sedation. She also had a narrow complex tachycardia which appeared SVT and was given IV Diltiazem. Currently she remains intubated on mechanical ventilation. Monitor reveals sinus rhythm. History was obtained from her by bedside and medical record. Cardiology consultation was called for further evaluation. - History Source History Provided By: Family Member, Medical Record Limitations to Obtaining History: Intubated - Past Medical History Cardio/Vascular: Yes: CAD, HTN, Hyperlipdemia Pulmonary: Yes: COPD ...LMP Comment: 78 YEARS OLD Heme/Onc: Yes: Cancer (Breast CA s/p lumpectomy and radiation therapy) Psych: Yes: Other (alcohol abuse) - Past Surgical History Past Surgical History: Yes: Breast Biopsy, Cholecystectomy, Joint Replacement ( right and left hips ), Stent Additional Surgical History: Lumpectomy - Alcohol/Substance Use Hx Alcohol Use: No (nightly) - Smoking History Smoking history: Current every day smoker Have you smoked in the past 12 months: Yes Aproximately how many cigarettes per day: 2 If you are a former smoker, when did you quit?: 2009 - Social History Usual Living Arrangement: Alone ADL: Independent History of Recent Travel: No Home Medications - Allergies Allergies/Adverse Reactions: Allergies Allergy/AdvReac Type Severity Reaction Status Date / Time Stock Ragweed Pollen Mixture Allergy Intermediate Cough Verified 08/25/18 17:29 No Known Drug Allergies Allergy Verified 08/25/18 17:29 - Home Medications Home Medications: Ambulatory Orders Atenolol [Tenormin -] 50 mg PO DAILY #0 08/02/11 Fenofibrate [Lipofen] 145 mg PO DAILY 05/15/13 Aspirin [ASA -] 81 mg PO DAILY 02/23/17 Multivitamin [One Daily] 1 each PO DAILY 02/23/17 Ramipril 10 mg PO DAILY capsule 02/23/17 Rosuvastatin Calcium [Crestor] 10 mg PO DAILY tablet 02/23/17 Cephalexin [Keflex] 500 mg PO BID 08/25/18 Sulfamethoxazole/Trimethoprim [Bactrim Ds -] 1 tab PO BID 08/25/18 Family Disease History - Family Disease History Family Disease History: CA: Sister (cervical cnacer 30) Review of Systems Unable to obtain ROS, reason: Unable to obtain Vital Signs: Vital Signs Temperature 97.2 F L 08/28/18 08:00 Pulse Rate 43 L 08/28/18 09:57 Respiratory Rate 20 08/28/18 11:15 Blood Pressure 104/55 L 08/28/18 09:57 O2 Sat by Pulse Oximetry (%) 97 08/28/18 09:41 Neck: Yes: Supple Respiratory: Yes: Mechanically Ventilated Gastrointestinal: Yes: Normal Bowel Sounds, Soft. No: Tenderness Cardiovascular: Yes: Regular Rate and Rhythm JVD: No PMI: Non-Displaced Heart Sounds: Yes: S1, S2 Murmur: Yes: Systolic Murmur, Grade 1 Edema: No - Other Data Labs, Other Data: CBC, BMP 08/28/18 05:30 08/28/18 05:30 INR, PTT INR 1.23 (0.83-1.09) H 08/27/18 21:00 Troponin, BNP 08/27/18 08/28/18 18:00 05:30 Troponin I 3.04 H* 1.88 H* Laboratory Results - last 24 hr 08/27/18 08/27/18 08/27/18 11:30 18:00 21:00 WBC 5.0 RBC 3.01 L Hgb 10.6 L Hct 30.3 L MCV 100.7 H MCH 35.3 H MCHC 35.0 RDW 14.3 Plt Count 118 L MPV 8.2 Absolute Neuts (auto) 4.6 Total Counted 100 Neutrophils % 92.3 H D Neutrophils % (Manual) 83.0 H Band Neutrophils % 11.0 Lymphocytes % 5.6 L D Lymphocytes % (Manual) 4.0 L Monocytes % 1.9 L Monocytes % (Manual) 1 L Eosinophils % 0.0 D Basophils % 0.2 Myelocytes % (Man) 1 Nucleated RBC % 0 Differential Comment Man diff performed Platelet Estimate Slt decrease Platelet Comment Polychromasia 1+ Macrocytosis 1+ PT with INR INR PTT (Actin FS) Puncture Site ABG pH ABG pCO2 at Pt Temp ABG pO2 at Pt Temp ABG HCO3 ABG O2 Sat (Measured) ABG O2 Content ABG Base Excess Tim Test O2 Delivery Device Oxygen Flow Rate Vent Mode Vent Rate Mechanical Rate PEEP Pressure Support Vent Sodium Potassium Chloride Carbon Dioxide Anion Gap BUN Creatinine Creat Clearance w eGFR POC Glucometer Random Glucose Calcium Phosphorus 2.6 Magnesium 1.9 Total Bilirubin AST ALT Alkaline Phosphatase Creatine Kinase Troponin I 3.04 H* Total Protein Albumin Influenza A (Rapid) Negative Influenza B (Rapid) Negative 08/27/18 08/28/18 08/28/18 21:00 05:30 05:30 WBC 4.1 RBC 2.94 L Hgb 10.2 L Hct 29.6 L MCV 100.6 H MCH 34.8 H MCHC 34.6 RDW 14.4 Plt Count 114 L MPV 8.3 Absolute Neuts (auto) Total Counted Neutrophils % Neutrophils % (Manual) Band Neutrophils % Lymphocytes % Lymphocytes % (Manual) Monocytes % Monocytes % (Manual) Eosinophils % Basophils % Myelocytes % (Man) Nucleated RBC % Differential Comment Platelet Estimate Platelet Comment Polychromasia Macrocytosis PT with INR 14.60 H INR 1.23 H PTT (Actin FS) 29.8 Puncture Site ABG pH ABG pCO2 at Pt Temp ABG pO2 at Pt Temp ABG HCO3 ABG O2 Sat (Measured) ABG O2 Content ABG Base Excess Tim Test O2 Delivery Device Oxygen Flow Rate Vent Mode Vent Rate Mechanical Rate PEEP Pressure Support Vent Sodium 136 Potassium 4.5 Chloride 107 Carbon Dioxide 23 Anion Gap 6 L BUN 26 H Creatinine 1.1 Creat Clearance w eGFR 48.29 POC Glucometer Random Glucose 170 H Calcium 6.8 L* Phosphorus Magnesium Total Bilirubin 0.5 AST 267 H ALT 85 H Alkaline Phosphatase 64 Creatine Kinase 132 Troponin I 1.88 H* Total Protein 4.9 L Albumin 2.1 L Influenza A (Rapid) Influenza B (Rapid) 08/28/18 08/28/18 08/28/18 05:30 05:51 06:00 WBC RBC Hgb Hct MCV MCH MCHC RDW Plt Count MPV Absolute Neuts (auto) Total Counted Neutrophils % Neutrophils % (Manual) Band Neutrophils % Lymphocytes % Lymphocytes % (Manual) Monocytes % Monocytes % (Manual) Eosinophils % Basophils % Myelocytes % (Man) Nucleated RBC % Differential Comment Platelet Estimate Platelet Comment Polychromasia Macrocytosis PT with INR INR PTT (Actin FS) 67.9 H Puncture Site Right brachial ABG pH 7.36 ABG pCO2 at Pt Temp 38.3 ABG pO2 at Pt Temp 161.0 H* ABG HCO3 21.0 L ABG O2 Sat (Measured) 99.0 H ABG O2 Content 14.9 L ABG Base Excess -3.6 L Tim Test Positive O2 Delivery Device Mech vent Oxygen Flow Rate 40% Vent Mode A/c Vent Rate 20 Mechanical Rate Yes PEEP 5.0 Pressure Support Vent 400 Sodium Potassium Chloride Carbon Dioxide Anion Gap BUN Creatinine Creat Clearance w eGFR POC Glucometer 152 Random Glucose Calcium Phosphorus Magnesium Total Bilirubin AST ALT Alkaline Phosphatase Creatine Kinase Troponin I Total Protein Albumin Influenza A (Rapid) Influenza B (Rapid) Sinus rhythm Echo: Pending Problem List - Problems (1) Acute respiratory failure Code(s): J96.00 - ACUTE RESPIRATORY FAILURE, UNSP W HYPOXIA OR HYPERCAPNIA (2) COPD exacerbation Code(s): J44.1 - CHRONIC OBSTRUCTIVE PULMONARY DISEASE W (ACUTE) EXACERBATION (3) Breast CA Code(s): C50.919 - MALIGNANT NEOPLASM OF UNSP SITE OF UNSPECIFIED FEMALE BREAST (4) CAD (coronary artery disease) Code(s): I25.10 - ATHSCL HEART DISEASE OF [place] CORONARY ARTERY W/O ANG PCTRS (5) Generalized weakness Code(s): R53.1 - WEAKNESS (6) HLD (hyperlipidemia) Code(s): E78.5 - HYPERLIPIDEMIA, UNSPECIFIED Qualifiers: Hyperlipidemia type: unspecified Qualified Code(s): E78.5 - Hyperlipidemia , unspecified (7) HTN (hypertension) Code(s): I10 - ESSENTIAL (PRIMARY) HYPERTENSION Qualifiers: Hypertension type: essential hypertension Qualified Code(s): I10 - Essential (primary) hypertension (8) Hyponatremia Code(s): E87.1 - HYPO-OSMOLALITY AND HYPONATREMIA (9) UTI (urinary tract infection) Code(s): N39.0 - URINARY TRACT INFECTION, SITE NOT SPECIFIED Assessment/Plan 1. Acute respiratory failure s/p intubation and on mechanical ventilation, ? acute exacerbation of COPD 2. CAD s/p PCI/stent 3. History of HTN - episode of hypotension due to shock now improved 4. Hypercholesterolemia 5. PSVT now in sinus rhythm 6. Generalized weakness and unsteady gait 7. History of breast CA 8. UTI 9. Anemia 10. Hyponatremia, resolving 11. Demand ischemia PLAN: 1. Antibiotic coverage 2. Vent management and wean attempt as per ICU team 3. Currently on Heparin IV 4. ASA 5. Statin therapy 6. Restart beta sam and ACEI when feasible 7. Echocardiography to assess LV/RV and valvular function Guarded. Discussed with her [employer] Operator: Severiano Bond MD. Deep Pablo MD
--- NOTE | 2018-08-28 12:20 | PN ---
Progress Note (short form) - Note Progress Note: ID CONSULT DICTATED RESPIRATORY FAILURE HYPOTENSION R/O SEPTIC SHOCK R/O PNEUMONIA THROMBOCYTOPENIA ELEVATED LFTS AWAIT C/S CONTINUE CEFTRIAXONE VENTILATORY SUPPORT
--- NOTE | 2018-08-28 12:23 | PN ---
Teaching Attending Note Name of Resident: Cipriano Rutledge ATTENDING PHYSICIAN STATEMENT I saw and evaluated the patient. I reviewed the resident's note and discussed the case with the resident. I agree with the resident's findings and plan as documented. SUBJECTIVE: Patient seen and examined in the ICU. Remains inubated and sedated. 3 mcq NE for hemodynamic support. AC Mode of vent, 50% FiO2. Decreasing peak pressures and obstruction on flow loops. CXR: no gross change. ETT in good position. Intake & Output 08/25/18 08/26/18 08/27/18 08/28/18 23:59 23:59 23:59 23:59 Intake Total 6092 266 3626.8 547.8 Output Total 500 1000 Balance 0440 351 8665.8 -452.2 Weight 99 lb 102 lb 14.4 oz 109 lb Last Vital Signs Temp Pulse Resp BP Pulse Ox 97.2 F L 43 L 20 104/55 L 97 08/28/18 08:00 08/28/18 09:57 08/28/18 11:15 08/28/18 09:57 08/28/18 09:41 Active Medications Acetaminophen (Tylenol Oral Solution -) 650 mg PO Q6H PRN PRN Reason: FEVER Aspirin (Asa -) 81 mg PO DAILY [facility] Last Admin: 08/28/18 10:08 Dose: 81 mg Chlorhexidine Gluconate (Hibiclens For Decolonization -) 1 applic TP HS [facility] Last Admin: 08/27/18 22:21 Dose: 1 applic Chlorhexidine Gluconate (Peridex -) 15 ml MM BID [facility] Last Admin: 08/28/18 10:09 Dose: 15 ml Fenofibric Acid (Trilipix -) 135 mg PO DAILY [facility] Last Admin: 08/28/18 10:14 Dose: 135 mg Heparin Sodium (Porcine) (Heparin -) 1,000 unit IVPUSH PRN PRN PRN Reason: Heparin Heparin Sodium (Porcine) (Heparin -) 5,000 unit IVPUSH PRN PRN PRN Reason: Heparin Norepinephrine Bitartrate 8, (000 mcg/ Dextrose) 500 mls @ 18.75 mls/hr IV TITR [facility]; Protocol Last Admin: 08/28/18 08:35 Dose: Not Given Azithromycin (Zithromax 500mg Ivpb (Pre-Docked)) 500 mg in 250 mls @ 250 mls/ hr IVPB DAILY [facility] Last Admin: 08/28/18 10:09 Dose: 250 mls/hr Propofol (Diprivan -) 1,000,000 mcg in 100 mls @ 1.4 mls/hr IVPB TITR [facility]; Protocol Last Titration: 08/28/18 08:00 Dose: 15 mcg/kg/min, 4.201 mls/hr Heparin Sodium (Porcine) 25, (000 unit/ Sodium Chloride) 500 mls @ 16 mls/hr IV TITR [facility]; Protocol Last Admin: 08/27/18 22:32 Dose: 800 unit/hr, 16 mls/hr Sodium Chloride (Normal Saline -) 1,000 mls @ 42 mls/hr IV ASDIR [facility] Last Admin: 08/27/18 22:33 Dose: 42 mls/hr Ceftriaxone Sodium 1 gm/ (Dextrose) 50 mls @ 100 mls/hr IVPB DAILY [facility]; Protocol Last Admin: 08/28/18 11:00 Dose: 100 mls/hr Methylprednisolone Sodium Succinate (Solu-Medrol -) 40 mg IVPUSH Q6H-IV [facility] Last Admin: 08/28/18 10:08 Dose: 40 mg Multivitamins/Minerals/Vitamin C (Tab-A-Vit -) 1 tab PO DAILY [facility] Last Admin: 08/28/18 10:08 Dose: 1 tab Mupirocin (Bactroban Ointment (For Decolonization) -) 1 applic NS BID [facility] Stop: 09/01/18 09:59 Last Admin: 08/28/18 10:14 Dose: 1 applic Rosuvastatin Calcium (Crestor -) 10 mg PO HS [facility] Last Admin: 08/27/18 22:26 Dose: 10 mg Constitutional: Yes: Intubated and sedated Eyes: Yes: Conjunctiva Clear HENT: Yes: Atraumatic, Normocephalic Neck: Yes: Supple, Trachea Midline Cardiovascular: Yes: Tachycardia, S1, S2. No: JVD Respiratory: Yes: Mechanically Ventilated, bilateral expiratory wheeze Gastrointestinal: Yes: Normal Bowel Sounds, Soft Edema: No Integumentary: Yes: Skin Tear (right leg) Psychiatric: Yes: Other (intubated and sedated.) Labs: Laboratory Results - last 24 hr 08/27/18 08/27/18 08/27/18 11:30 18:00 21:00 WBC 5.0 RBC 3.01 L Hgb 10.6 L Hct 30.3 L MCV 100.7 H MCH 35.3 H MCHC 35.0 RDW 14.3 Plt Count 118 L MPV 8.2 Absolute Neuts (auto) 4.6 Total Counted 100 Neutrophils % 92.3 H D Neutrophils % (Manual) 83.0 H Band Neutrophils % 11.0 Lymphocytes % 5.6 L D Lymphocytes % (Manual) 4.0 L Monocytes % 1.9 L Monocytes % (Manual) 1 L Eosinophils % 0.0 D Basophils % 0.2 Myelocytes % (Man) 1 Nucleated RBC % 0 Differential Comment Man diff performed Platelet Estimate Slt decrease Platelet Comment Polychromasia 1+ Macrocytosis 1+ PT with INR INR PTT (Actin FS) Puncture Site ABG pH ABG pCO2 at Pt Temp ABG pO2 at Pt Temp ABG HCO3 ABG O2 Sat (Measured) ABG O2 Content ABG Base Excess Tim Test O2 Delivery Device Oxygen Flow Rate Vent Mode Vent Rate Mechanical Rate PEEP Pressure Support Vent Sodium Potassium Chloride Carbon Dioxide Anion Gap BUN Creatinine Creat Clearance w eGFR POC Glucometer Random Glucose Calcium Phosphorus 2.6 Magnesium 1.9 Total Bilirubin AST ALT Alkaline Phosphatase Creatine Kinase Troponin I 3.04 H* Total Protein Albumin Influenza A (Rapid) Negative Influenza B (Rapid) Negative 08/27/18 08/28/18 08/28/18 21:00 05:30 05:30 WBC 4.1 RBC 2.94 L Hgb 10.2 L Hct 29.6 L MCV 100.6 H MCH 34.8 H MCHC 34.6 RDW 14.4 Plt Count 114 L MPV 8.3 Absolute Neuts (auto) Total Counted Neutrophils % Neutrophils % (Manual) Band Neutrophils % Lymphocytes % Lymphocytes % (Manual) Monocytes % Monocytes % (Manual) Eosinophils % Basophils % Myelocytes % (Man) Nucleated RBC % Differential Comment Platelet Estimate Platelet Comment Polychromasia Macrocytosis PT with INR 14.60 H INR 1.23 H PTT (Actin FS) 29.8 Puncture Site ABG pH ABG pCO2 at Pt Temp ABG pO2 at Pt Temp ABG HCO3 ABG O2 Sat (Measured) ABG O2 Content ABG Base Excess Tim Test O2 Delivery Device Oxygen Flow Rate Vent Mode Vent Rate Mechanical Rate PEEP Pressure Support Vent Sodium 136 Potassium 4.5 Chloride 107 Carbon Dioxide 23 Anion Gap 6 L BUN 26 H Creatinine 1.1 Creat Clearance w eGFR 48.29 POC Glucometer Random Glucose 170 H Calcium 6.8 L* Phosphorus Magnesium Total Bilirubin 0.5 AST 267 H ALT 85 H Alkaline Phosphatase 64 Creatine Kinase 132 Troponin I 1.88 H* Total Protein 4.9 L Albumin 2.1 L Influenza A (Rapid) Influenza B (Rapid) 08/28/18 08/28/18 08/28/18 05:30 05:51 06:00 WBC RBC Hgb Hct MCV MCH MCHC RDW Plt Count MPV Absolute Neuts (auto) Total Counted Neutrophils % Neutrophils % (Manual) Band Neutrophils % Lymphocytes % Lymphocytes % (Manual) Monocytes % Monocytes % (Manual) Eosinophils % Basophils % Myelocytes % (Man) Nucleated RBC % Differential Comment Platelet Estimate Platelet Comment Polychromasia Macrocytosis PT with INR INR PTT (Actin FS) 67.9 H Puncture Site Right brachial ABG pH 7.36 ABG pCO2 at Pt Temp 38.3 ABG pO2 at Pt Temp 161.0 H* ABG HCO3 21.0 L ABG O2 Sat (Measured) 99.0 H ABG O2 Content 14.9 L ABG Base Excess -3.6 L Tim Test Positive O2 Delivery Device Mech vent Oxygen Flow Rate 40% Vent Mode A/c Vent Rate 20 Mechanical Rate Yes PEEP 5.0 Pressure Support Vent 400 Sodium Potassium Chloride Carbon Dioxide Anion Gap BUN Creatinine Creat Clearance w eGFR POC Glucometer 152 Random Glucose Calcium Phosphorus Magnesium Total Bilirubin AST ALT Alkaline Phosphatase Creatine Kinase Troponin I Total Protein Albumin Influenza A (Rapid) Influenza B (Rapid) Assessment/Plan Acute Respiratory Failure due to AE of COPD Low clinical suspicion of Pulmonary edema Septic Shock: (?) PNA (?) UTI HTN HLD CAD s/p PCI Left Breast Ca (Stage 1, RT, 1999) Smoker AC Mode of vent, wean FiO2, Can start SBTs BD TX Medrol ABX per ID Check CVP Wean NE Strict I & O Hold anti-hypertensive agents Requires continued ICU monitoring Dr Macedo Critical care time spent in reviewing chart, evaluating patient and formulating plan - 36 minutes.
--- NOTE | 2018-08-28 13:49 | CONS ---
DATE OF CONSULTATION: DATE OF DICTATION: 08/28/2018 The patient is a 78-year-old female who was evaluated for pneumonia. She was admitted to [facility] on August 25, 2018. History was obtained from the chart as well as patient's , who was present at the time of the examination. She is presently intubated in the intensive care unit. He reports that over the past week or so, she has had worsening generalized weakness and had fallen at home, sustaining trauma to the low back and flank. She has also been suffering from a respiratory tract infection, for which she saw her primary care doctor and was prescribed an oral antibiotic. She continued to have cough productive of whitish sputum. She was evaluated in the emergency room, where CAT scan of the head was negative. She was noted to be hyponatremic. The patient was admitted to the floor, where she was treated for her hyponatremia. Her course was complicated by a rapid response which was called on August 26, 2018, where the patient was in respiratory distress and hypoxemic. She was placed on BiPAP and was ultimately intubated and transferred to the intensive care unit. At the present time, she is intubated, on pressors, in the intensive care unit. She is sedated on the ventilator. She has had a low-grade temperature. Cultures are pending. A Rapid Flu swab was negative, as was urine Legionella and pneumococcal antigens. She was empirically treated with ceftriaxone and Bactrim for a urinary tract infection, and is presently on Zithromax and ceftriaxone for possible pneumonia. The patient's had also been suffering from a respiratory tract illness over the past couple weeks and has been treated with antibiotic. The patient is a smoker. The patient's believes she smokes a pack a day. No recent hospitalizations or travel. Past medical history positive for hypertension, hyperlipidemia, coronary artery disease, status post stent, breast cancer. PAST SURGICAL HISTORY: Status post appendectomy, cholecystectomy, bilateral hip replacements, history of an groin cyst under the care of a card services specialist. No known allergies. Medications include Tylenol, aspirin, Zithromax, ceftriaxone, fenofibrate, folic acid, heparin, Medrol, norepinephrine, propofol, Crestor. SOCIAL HISTORY: As per HPI. SYSTEMS REVIEW: Neurologic: No loss of consciousness, seizure activity, focal weakness. Cardiac: Negative chest pain or palpitations. Respiratory: As per HPI. Gastrointestinal: Positive for recent diarrhea, attributed to antibiotic. Genitourinary: Negative for recent complaints of dysuria or hematuria, positive "groin" cyst under the care of a card services specialist. LABORATORY DATA: White count 4.1, hematocrit 29.6, platelet count 114, BUN 26, creatinine 1.1, sodium 136. Urinalysis: 5 to 10 white cells, total bilirubin 0.5, alkaline phosphatase 64, AST 267, ALT 85. Flu swab negative. Blood cultures pending. Urine culture: No growth. Chest x-ray shows bilateral pulmonary congestion. PHYSICAL EXAMINATION: General: The patient is sedated on the ventilator. Vital Signs: Temperature 97.2, T-max 100.5. Blood pressure 105/55. Pulse 43, regular. Respirations 24 per minute. ENT: Sclerae anicteric. The patient is orally intubated. Heart Sounds: S1, S2. Lungs: Air entry bilaterally. Abdomen: Soft. No tenderness elicited. Extremities: Negative for edema. Ecchymotic areas noted in lower extremities bilaterally. I was not able to reposition the patient to examine her groin area. IMPRESSION: 1. Respiratory failure. 2. Rule out pneumonia. 3. Hypotension. Rule out septic shock. 4. Thrombocytopenia, possibly secondary to sepsis. 5. Elevated liver enzymes. Await cultures. Obtain suction sputum C&S. Continue empiric ceftriaxone. Ventilatory and hemodynamic support. Case discussed with the patient's present at the time of the examination. Thank you for the kind referral. REINIER CASAREZ M.D. [id number]
--- NOTE | 2018-08-28 17:06 | ECHO ---
Name: SIDRA OSEGUERA Exam:Adult Echocardiogram Study Date: 08/28/2018 10:56 AM Age: 78 yrs Reason For Study: PULM EDEMA Height: 62 in Weight: 102 lb BSA: 1.4 m2 MMode/2D Measurements & Calculations IVSd: 0.80 cm Ao root diam: 2.5 cm LVIDd: 4.0 cm LA dimension: 2.8 cm LVIDs: 2.5 cm LVPWd: 0.67 cm EDV(Teich): 69.3 ml LAV (MOD-bp): 45.9 ml ESV(Teich): 21.9 ml Doppler Measurements & Calculations MV E max vu: 78.1 cm/sec MV A max vu: 81.5 cm/sec MV dec slope: 564.8 cm/sec2 MV E/A: 0.96 AI P1/2t: 306.3 msec AI max vu: 318.3 cm/sec AI max P.5 mmHg AI dec slope: 304.3 cm/sec2 MR max vu: 286.4 cm/sec TR max vu: 212.2 cm/sec MR max P.8 mmHg TR max P.1 mmHg Med Peak E' Vu: 5.5 cm/sec Med E/e': 14.1 Lat Peak E' Vu: 6.4 cm/sec Lat E/e': 12.2 Procedure A two-dimensional transthoracic echocardiogram with color flow and Doppler was performed. The study w as technically limited with all images being suboptimal in quality. Left Ventricle The left ventricular size, thickness and function are normal. Left ventricular systolic function is l ow normal. Ejection Fraction = 50%. Grade I diastolic dysfunction, (abnormal relaxation pattern). Right Ventricle The right ventricle is normal in size and function. Atria Normal left and right atrial size and function. Mitral Valve There is mild mitral valve thickening. There is trace mitral regurgitation. Tricuspid Valve The tricuspid valve is not well visualized, but is grossly normal. No tricuspid regurgitation. There was insufficient TR detected to calculate RV systolic pressure. Aortic Valve There is mild to moderate aortic sclerosis.;. No hemodynamically significant valvular aortic stenosis . Mild aortic regurgitation. Pulmonic Valve The pulmonic valve is not well visualized. Great Vessels The aortic root is normal size. Pericardium/Pleura There is no pericardial effusion. Interpretation Summary The study was technically limited with all images being suboptimal in quality. Left ventricular systolic function is low normal. The right ventricle is normal in size and function. Normal left and right atrial size and function. There is trace mitral regurgitation. No hemodynamically significant valvular aortic stenosis. Mild aortic regurgitation. There was insufficient TR detected to calculate RV systolic pressure. MD Lane Stevens 08/28/2018 05:05 PM
[2018-08-28] MEDS: SODIUM CHLORIDE 1,000 ML IV SCH (22:10)
[2018-08-28] MEDS: ROSUVASTATIN CA 10 MG TABLET (FP) PO SCH (22:12)
[2018-08-28] MEDS: CHLORHEXIDINE GLUCONATE 4% CLEANSER FOR DECOLONIZATION TP SCH (22:12)
[2018-08-28] MEDS: HEPARIN - 25,000 UNIT in SODIUM CHLORIDE 495 ML IV SCH (22:13)
[2018-08-29] MEDS: methylPREDNISolone NA SUCC 40 MG/1 ML VIAL IVPUSH SCH ×4 (02:52→22:00)
[2018-08-29 05:54] LABS: HEMATOCRIT 27.8 % (32.4-45.2); HEMOGLOBIN 9.7 GM/dL (10.7-15.3); MCHC 34.8 g/dl (32.0-36.0); MEAN CELL VOLUME 100.5 fl (80-96); MEAN PLT VOLUME 8.4 fl (7.5-11.1); PLATELET COUNT 128 K/MM3 (134-434); RBC 2.76 M/mm3 (3.60-5.2); RDW 14.3 % (11.6-15.6); WHITE BLOOD COUNT 6.8 K/mm3 (4.0-10.0)
[2018-08-29] MEDS: PROPOFOL 1,000,000 MCG/100 ML VIAL IVPB SCH ×2 (06:21→21:58)
[2018-08-29] MEDS: HEPARIN - 25,000 UNIT in SODIUM CHLORIDE 495 ML IV SCH ×2 (07:15→22:00)
[2018-08-29 07:36] LABS: ALBUMIN 2.3 g/dl (3.4-5.0); ALK PHOS 67 U/L (45-117); ANION GAP 5 MMOL/L (8-16); BILIRUBIN,TOTAL 0.5 mg/dL (0.2-1); BLOOD UREA NITROGEN 27 mg/dL (7-18); CALCIUM 7.6 mg/dL (8.5-10.1); CHLORIDE 111 mmol/L (98-107); CO2 25 mmol/L (21-32); CREATININE 1.1 mg/dL (0.55-1.3); GLUCOSE,RANDOM 132 mg/dL (74-106); PHOSPHOROUS 1.6 mg/dL (2.5-4.9); POTASSIUM 4.9 mmol/L (3.5-5.1); SGOT/AST 168 U/L (15-37); SGPT/ALT 85 U/L (13-61); SODIUM 140 mmol/L (136-145); TOT PROT 5.3 g/dl (6.4-8.2)
[2018-08-29] MEDS ORDERED: NAPH,MB-DB/K PH,MBDB POWDER PACKET PO ONE (08:30)
[2018-08-29] MEDS ORDERED: cefTRIAXone SODIUM 1 GM VIAL ONE (10:03)
[2018-08-29] MEDS ORDERED: PT OWN MED DRAWER 7, Y5N ONE ×3 (10:03→22:33)
[2018-08-29] MEDS ORDERED: DEXTROSE 5%-WATER - 50 ML IVPB ONE (10:04)
[2018-08-29] MEDS: AZITHROMYCIN IVPB 500 MG/250 ML BAG IVPB SCH (10:06)
[2018-08-29] MEDS: CHLORHEXIDINE GLUCONATE 0.12% 15ML CUP MM SCH ×2 (10:10→22:08)
[2018-08-29] MEDS: MULTIVITAMINS (DAILY MVI) TABLET (FP) PO SCH (10:10)
[2018-08-29] MEDS: ASPIRIN 81 MG CHEWABLE TABLETS PO SCH (10:10)
[2018-08-29] MEDS: FENOFIBRIC ACID 135 MG CAP PO SCH (10:11)
[2018-08-29] MEDS: MUPIROCIN 2% TOPICAL OINTMENT FOR DECOLONIZATION NS SCH ×2 (10:12→22:04)
[2018-08-29] MEDS: NOREPINEPHRINE BITARTRATE 8,000 MCG in DEXTROSE 5%-WATER - 492 ML IV SCH (10:12)
--- NOTE | 2018-08-29 10:14 | PN ---
Teaching Attending Note Name of Resident: Cipriano Rutledge ATTENDING PHYSICIAN STATEMENT I saw and evaluated the patient. I reviewed the resident's note and discussed the case with the resident. I agree with the resident's findings and plan as documented. SUBJECTIVE: Patient seen and examined in the ICU. Remains exubated. Awake and alert, mildly confused. Off NE for hemodynamic support. Intake & Output 08/26/18 08/27/18 08/28/18 08/29/18 23:59 23:59 23:59 23:59 Intake Total 550 1541.8 1967.6 Output Total 500 2000 Balance 550 1041.8 -32.4 Weight 102 lb 14.4 oz 109 lb Last Vital Signs Temp Pulse Resp BP Pulse Ox 98.1 F 72 24 H 141/73 97 08/29/18 02:00 08/29/18 04:00 08/29/18 04:00 08/29/18 04:00 08/28/18 09:41 Active Medications Acetaminophen (Tylenol Oral Solution -) 650 mg PO Q6H PRN PRN Reason: FEVER Albuterol/Ipratropium (Duoneb -) 1 amp NEB Q4H PRN PRN Reason: SHORTNESS OF BREATH Aspirin (Asa -) 81 mg PO DAILY [facility] Last Admin: 08/28/18 10:08 Dose: 81 mg Chlorhexidine Gluconate (Hibiclens For Decolonization -) 1 applic TP HS [facility] Last Admin: 08/28/18 22:12 Dose: 1 applic Chlorhexidine Gluconate (Peridex -) 15 ml MM BID [facility] Last Admin: 08/28/18 22:14 Dose: Not Given Fenofibric Acid (Trilipix -) 135 mg PO DAILY [facility] Last Admin: 08/28/18 10:14 Dose: 135 mg Heparin Sodium (Porcine) (Heparin -) 1,000 unit IVPUSH PRN PRN PRN Reason: Heparin Last Admin: 08/29/18 08:17 Dose: 1,000 unit Heparin Sodium (Porcine) (Heparin -) 5,000 unit IVPUSH PRN PRN PRN Reason: Heparin Norepinephrine Bitartrate 8, (000 mcg/ Dextrose) 500 mls @ 18.75 mls/hr IV TITR [facility]; Protocol Last Admin: 08/28/18 08:35 Dose: Not Given Azithromycin (Zithromax 500mg Ivpb (Pre-Docked)) 500 mg in 250 mls @ 250 mls/ hr IVPB DAILY [facility] Last Admin: 08/28/18 10:09 Dose: 250 mls/hr Propofol (Diprivan -) 1,000,000 mcg in 100 mls @ 1.4 mls/hr IVPB TITR [facility]; Protocol Last Admin: 08/29/18 06:21 Dose: Not Given Heparin Sodium (Porcine) 25, (000 unit/ Sodium Chloride) 500 mls @ 16 mls/hr IV TITR [facility]; Protocol Last Admin: 08/29/18 07:15 Dose: 900 unit/hr, 18 mls/hr Sodium Chloride (Normal Saline -) 1,000 mls @ 42 mls/hr IV ASDIR [facility] Last Admin: 08/28/18 22:10 Dose: 42 mls/hr Ceftriaxone Sodium 1 gm/ (Dextrose) 50 mls @ 100 mls/hr IVPB DAILY [facility]; Protocol Last Admin: 08/28/18 11:00 Dose: 100 mls/hr Methylprednisolone Sodium Succinate (Solu-Medrol -) 40 mg IVPUSH Q6H-IV [facility] Last Admin: 08/29/18 02:52 Dose: 40 mg Multivitamins/Minerals/Vitamin C (Tab-A-Vit -) 1 tab PO DAILY [facility] Last Admin: 08/28/18 10:08 Dose: 1 tab Mupirocin (Bactroban Ointment (For Decolonization) -) 1 applic NS BID [facility] Stop: 09/01/18 09:59 Last Admin: 08/28/18 22:11 Dose: 1 applic Rosuvastatin Calcium (Crestor -) 10 mg PO HS [facility] Last Admin: 08/28/18 22:12 Dose: Not Given Constitutional: Yes: Extubated, awake and alert Eyes: Yes: Conjunctiva Clear HENT: Yes: Atraumatic, Normocephalic Neck: Yes: Supple, Trachea Midline Cardiovascular: Yes: Tachycardia, S1, S2. No: JVD Respiratory: Yes: few scattered expiratory wheeze and rhonchi Gastrointestinal: Yes: Normal Bowel Sounds, Soft Edema: No Integumentary: Yes: Skin Tear (right leg) Labs: Laboratory Results - last 24 hr 08/28/18 08/29/18 08/29/18 22:05 05:30 05:30 WBC 6.8 RBC 2.76 L Hgb 9.7 L Hct 27.8 L MCV 100.5 H MCH 35.0 H MCHC 34.8 RDW 14.3 Plt Count 128 L MPV 8.4 PTT (Actin FS) 47.6 H Sodium Potassium Chloride Carbon Dioxide Anion Gap BUN Creatinine Creat Clearance w eGFR POC Glucometer 167 Random Glucose Calcium Phosphorus Magnesium Total Bilirubin AST ALT Alkaline Phosphatase Total Protein Albumin 08/29/18 05:30 WBC RBC Hgb Hct MCV MCH MCHC RDW Plt Count MPV PTT (Actin FS) Sodium 140 Potassium 4.9 Chloride 111 H Carbon Dioxide 25 Anion Gap 5 L BUN 27 H Creatinine 1.1 Creat Clearance w eGFR 48.29 POC Glucometer Random Glucose 132 H Calcium 7.6 L Phosphorus 1.6 L Magnesium 2.0 Total Bilirubin 0.5 AST 168 H ALT 85 H Alkaline Phosphatase 67 Total Protein 5.3 L Albumin 2.3 L Assessment/Plan Acute Respiratory Failure due to AE of COPD Low clinical suspicion of Pulmonary edema Septic Shock: (?) PNA (?) UTI HTN HLD CAD s/p PCI Left Breast Ca (Stage 1, RT, 1999) Smoker O2 as needed to maintain saturation BD TX Medrol ABX per ID D/C CVC D/C Eduardo Ocampo I & O Cardiac Telemetry monitoring Dr Macedo
--- NOTE | 2018-08-29 10:26 | PN ---
Progress Note, Physician History of Present Illness: EXTUBATED AWAKE, ALERT MILDLY CONFUSED OFFERS NO COMPLAINTS COUGH NOTED SLIGHTLY TACHYPNEIC ON RA (TAKES OFF NASAL CANNULA) TEMPS DOWN AFEBRILE BC (-) SPUTUM C/S PENDING LEGIONELLA AG (-) - Current Medication List Current Medications: Active Medications Acetaminophen (Tylenol Oral Solution -) 650 mg PO Q6H PRN PRN Reason: FEVER Albuterol/Ipratropium (Duoneb -) 1 amp NEB Q4H PRN PRN Reason: SHORTNESS OF BREATH Aspirin (Asa -) 81 mg PO DAILY [facility] Last Admin: 08/29/18 10:10 Dose: 81 mg Chlorhexidine Gluconate (Hibiclens For Decolonization -) 1 applic TP HS [facility] Last Admin: 08/28/18 22:12 Dose: 1 applic Chlorhexidine Gluconate (Peridex -) 15 ml MM BID [facility] Last Admin: 08/29/18 10:10 Dose: Not Given Fenofibric Acid (Trilipix -) 135 mg PO DAILY [facility] Last Admin: 08/29/18 10:11 Dose: 135 mg Heparin Sodium (Porcine) (Heparin -) 1,000 unit IVPUSH PRN PRN PRN Reason: Heparin Last Admin: 08/29/18 08:17 Dose: 1,000 unit Heparin Sodium (Porcine) (Heparin -) 5,000 unit IVPUSH PRN PRN PRN Reason: Heparin Norepinephrine Bitartrate 8, (000 mcg/ Dextrose) 500 mls @ 18.75 mls/hr IV TITR [facility]; Protocol Last Admin: 08/29/18 10:12 Dose: Not Given Azithromycin (Zithromax 500mg Ivpb (Pre-Docked)) 500 mg in 250 mls @ 250 mls/ hr IVPB DAILY [facility] Last Admin: 08/29/18 10:06 Dose: 250 mls/hr Propofol (Diprivan -) 1,000,000 mcg in 100 mls @ 1.4 mls/hr IVPB TITR [facility]; Protocol Last Admin: 08/29/18 06:21 Dose: Not Given Heparin Sodium (Porcine) 25, (000 unit/ Sodium Chloride) 500 mls @ 16 mls/hr IV TITR [facility]; Protocol Last Admin: 08/29/18 07:15 Dose: 900 unit/hr, 18 mls/hr Sodium Chloride (Normal Saline -) 1,000 mls @ 42 mls/hr IV ASDIR [facility] Last Admin: 08/28/18 22:10 Dose: 42 mls/hr Ceftriaxone Sodium 1 gm/ (Dextrose) 50 mls @ 100 mls/hr IVPB DAILY [facility]; Protocol Last Admin: 08/28/18 11:00 Dose: 100 mls/hr Methylprednisolone Sodium Succinate (Solu-Medrol -) 40 mg IVPUSH Q6H-IV [facility] Last Admin: 08/29/18 02:52 Dose: 40 mg Multivitamins/Minerals/Vitamin C (Tab-A-Vit -) 1 tab PO DAILY [facility] Last Admin: 08/29/18 10:10 Dose: 1 tab Mupirocin (Bactroban Ointment (For Decolonization) -) 1 applic NS BID [facility] Stop: 09/01/18 09:59 Last Admin: 08/29/18 10:12 Dose: Not Given Rosuvastatin Calcium (Crestor -) 10 mg PO HS [facility] Last Admin: 08/28/18 22:12 Dose: Not Given - Objective Vital Signs: Vital Signs Temperature 98.1 F 08/29/18 02:00 Pulse Rate 72 08/29/18 04:00 Respiratory Rate 24 H 08/29/18 04:00 Blood Pressure 141/73 08/29/18 04:00 O2 Sat by Pulse Oximetry (%) 97 08/28/18 09:41 Constitutional: Yes: No Distress Eyes: Yes: Conjunctiva Clear Cardiovascular: Yes: Regular Rate and Rhythm, S1, S2 Respiratory: Yes: Rhonchi Gastrointestinal: Yes: Normal Bowel Sounds, Soft. No: Tenderness Edema: No Integumentary: Yes: Bruising (LE) Labs: CBC, BMP 08/29/18 05:30 08/29/18 05:30 INR, PTT INR 1.23 (0.83-1.09) H 08/27/18 21:00 Assessment/Plan S/P RESP FAILURE PNEUMONIA THROMBOCYTOPENIA ELEVATED LFTS FEVER- IMPROVED AWAIT C/S CONTINUE CEFTRIAXONE/ ZITHROMAX
[2018-08-29] MEDS: CEFTRIAXONE 1 GM in DEXTROSE 5%-WATER - 50 ML IVPB SCH (11:30)
--- NOTE | 2018-08-29 16:34 | PN ---
Physical Exam: SUBJECTIVE: Patient seen and examined in the icu. OBJECTIVE: Vital Signs Period Temp Pulse Resp BP Sys/Prakash Pulse Ox Last 24 Hr 98.1 F-98.6 F 58-88 22-27 114-145/52-89 100 GENERAL: awake, alert, in no acute distress. extubated. tolerating supplemental oxygen HEAD: Normal with no signs of trauma. EYES: PERRL, extraocular movements intact, sclera anicteric, conjunctiva clear. No ptosis. ENT: Ears normal, nares patent, oropharynx clear without exudates, moist mucous membranes. NECK: Trachea midline, full range of motion, supple. LUNGS: Breath sounds equal, clear to auscultation anteriorly HEART: rrr on surveillance system monitor ABDOMEN: Soft, nontender, nondistended, normoactive bowel sounds, no guarding EXTREMITIES: no edema, discoloration of bilateral lower extremities. SKIN: Warm, dry, normal turgor, no rashes or lesions noted Laboratory Results - last 24 hr 08/28/18 08/29/18 08/29/18 22:05 05:30 05:30 WBC 6.8 RBC 2.76 L Hgb 9.7 L Hct 27.8 L MCV 100.5 H MCH 35.0 H MCHC 34.8 RDW 14.3 Plt Count 128 L MPV 8.4 PTT (Actin FS) 47.6 H Sodium Potassium Chloride Carbon Dioxide Anion Gap BUN Creatinine Creat Clearance w eGFR POC Glucometer 167 Random Glucose Calcium Phosphorus Magnesium Total Bilirubin AST ALT Alkaline Phosphatase Total Protein Albumin 08/29/18 08/29/18 05:30 12:29 WBC RBC Hgb Hct MCV MCH MCHC RDW Plt Count MPV PTT (Actin FS) 71.5 H Sodium 140 Potassium 4.9 Chloride 111 H Carbon Dioxide 25 Anion Gap 5 L BUN 27 H Creatinine 1.1 Creat Clearance w eGFR 48.29 POC Glucometer Random Glucose 132 H Calcium 7.6 L Phosphorus 1.6 L Magnesium 2.0 Total Bilirubin 0.5 AST 168 H ALT 85 H Alkaline Phosphatase 67 Total Protein 5.3 L Albumin 2.3 L Active Medications Generic Name Dose Route Start Last Admin Trade Name Freq PRN Reason Stop Dose Admin Acetaminophen 650 mg 08/27/18 18:15 Tylenol Oral Solution - PO Q6H PRN FEVER Albuterol/Ipratropium 1 amp 08/29/18 07:27 Duoneb - NEB Q4H PRN SHORTNESS OF BREATH Aspirin 81 mg 08/28/18 10:00 08/29/18 10:10 Asa - PO 81 mg DAILY [facility] Administration Chlorhexidine Gluconate 1 applic 08/27/18 22:00 08/28/18 22:12 Hibiclens For Decolonization - TP 1 applic HS [facility] Administration Chlorhexidine Gluconate 15 ml 08/27/18 11:15 08/29/18 10:10 Peridex - MM Not Given BID [facility] Fenofibric Acid 135 mg 08/28/18 10:00 08/29/18 10:11 Trilipix - PO 135 mg DAILY [facility] Administration Heparin Sodium (Porcine) 1,000 unit 08/27/18 20:54 08/29/18 08:17 Heparin - IVPUSH 1,000 unit PRN PRN Administration Heparin Heparin Sodium (Porcine) 5,000 unit 08/27/18 20:54 Heparin - IVPUSH PRN PRN Heparin Norepinephrine Bitartrate 8, 500 mls @ 18.75 mls/hr 08/27/18 01:30 08/29/18 10:12 000 mcg/ Dextrose IV Not Given TITR [facility] Protocol 5 MCG/MIN Azithromycin 500 mg in 250 mls @ 250 mls/hr 08/27/18 15:30 08/29/18 10:06 Zithromax 500mg Ivpb (Pre-Docked) IVPB 250 mls/hr DAILY [facility] Administration Propofol 1,000,000 mcg in 100 mls @ 1.4 mls/hr 08/27/18 20:45 08/29/18 06:21 Diprivan - IVPB Not Given TITR [facility] Protocol 5 MCG/KG/MIN Heparin Sodium (Porcine) 25, 500 mls @ 16 mls/hr 08/27/18 21:00 08/29/18 07: 15 000 unit/ Sodium Chloride IV 900 unit/hr TITR [facility] 18 mls/hr Administration Protocol 800 UNIT/HR Sodium Chloride 1,000 mls @ 42 mls/hr 08/27/18 21:02 08/28/18 22:10 Normal Saline - IV 42 mls/hr ASDIR [facility] Administration Ceftriaxone Sodium 1 gm/ 50 mls @ 100 mls/hr 08/28/18 10:00 08/29/18 11:30 Dextrose IVPB 100 mls/hr DAILY [facility] Administration Protocol Methylprednisolone Sodium Succinate 40 mg 08/27/18 12:00 08/29/18 10:23 Solu-Medrol - IVPUSH 40 mg Q6H-IV [facility] Administration Multivitamins/Minerals/Vitamin C 1 tab 08/28/18 10:00 08/29/18 10:10 Tab-A-Vit - PO 1 tab DAILY [facility] Administration Mupirocin 1 applic 08/27/18 10:00 08/29/18 10:12 Bactroban Ointment (For Decolonization) - NS 09/01/18 09:59 Not Given BID [facility] Rosuvastatin Calcium 10 mg 08/27/18 22:00 08/28/18 22:12 Crestor - PO Not Given HS [facility] ASSESSMENT/PLAN: Patient is a 78 year old female with a significant past medical history of HTN, HLD, CAD s/p stent, L breast CA (stage 1) and COPD. Initially presented to [facility] with UTI and hyponatremia on labs. Developed shortness of breath and intubated for airway protection. Transferred to [facility] ICU and started on pressors for hypotension. Pulmonary: Acute hypoxic hypercapnic respiratory failure secondary Cause due to flash pulmonary edema vs ? COPD exacerbation. extubated, started on solumendrol IV. Monitor respiratory status and wean off as tolerated Card: Echo ordered to evaluate cardiac function. Unclear etiology fo acute shortness of breath Monitor BP Elevated troponins Possible demand ischemia. cardiology following. ID: Rule out pneumonia On Ceftriaxone ID following Renal: Initially hyponatremic, now resolved. fen Tube feeding with jevity monitor electrolytes prophy: Heparin SQ TID 5000 units. PPI. ICU for airway monitoring Visit type - Emergency Visit Emergency Visit: Yes ED Registration Date: 08/26/18 Care time: The patient presented to the Emergency Department on the above date and was hospitalized for further evaluation of their emergent condition. - New Patient This patient is new to me today: No - Critical Care Critical Care patient: No - Discharge Referral Referred to [facility] Med P.C.: No
--- NOTE | 2018-08-29 16:38 | PN ---
Progress Note, Physician History of Present Illness: Extubated, confused, respiratory status improving. - Current Medication List Current Medications: Active Medications Acetaminophen (Tylenol Oral Solution -) 650 mg PO Q6H PRN PRN Reason: FEVER Albuterol/Ipratropium (Duoneb -) 1 amp NEB Q4H PRN PRN Reason: SHORTNESS OF BREATH Aspirin (Asa -) 81 mg PO DAILY [facility] Last Admin: 08/29/18 10:10 Dose: 81 mg Chlorhexidine Gluconate (Hibiclens For Decolonization -) 1 applic TP HS [facility] Last Admin: 08/28/18 22:12 Dose: 1 applic Chlorhexidine Gluconate (Peridex -) 15 ml MM BID [facility] Last Admin: 08/29/18 10:10 Dose: Not Given Fenofibric Acid (Trilipix -) 135 mg PO DAILY [facility] Last Admin: 08/29/18 10:11 Dose: 135 mg Heparin Sodium (Porcine) (Heparin -) 1,000 unit IVPUSH PRN PRN PRN Reason: Heparin Last Admin: 08/29/18 08:17 Dose: 1,000 unit Heparin Sodium (Porcine) (Heparin -) 5,000 unit IVPUSH PRN PRN PRN Reason: Heparin Norepinephrine Bitartrate 8, (000 mcg/ Dextrose) 500 mls @ 18.75 mls/hr IV TITR [facility]; Protocol Last Admin: 08/29/18 10:12 Dose: Not Given Azithromycin (Zithromax 500mg Ivpb (Pre-Docked)) 500 mg in 250 mls @ 250 mls/ hr IVPB DAILY [facility] Last Admin: 08/29/18 10:06 Dose: 250 mls/hr Propofol (Diprivan -) 1,000,000 mcg in 100 mls @ 1.4 mls/hr IVPB TITR [facility]; Protocol Last Admin: 08/29/18 06:21 Dose: Not Given Heparin Sodium (Porcine) 25, (000 unit/ Sodium Chloride) 500 mls @ 16 mls/hr IV TITR [facility]; Protocol Last Admin: 08/29/18 07:15 Dose: 900 unit/hr, 18 mls/hr Sodium Chloride (Normal Saline -) 1,000 mls @ 42 mls/hr IV ASDIR [facility] Last Admin: 08/28/18 22:10 Dose: 42 mls/hr Ceftriaxone Sodium 1 gm/ (Dextrose) 50 mls @ 100 mls/hr IVPB DAILY [facility]; Protocol Last Admin: 08/29/18 11:30 Dose: 100 mls/hr Methylprednisolone Sodium Succinate (Solu-Medrol -) 40 mg IVPUSH Q6H-IV [facility] Last Admin: 08/29/18 10:23 Dose: 40 mg Multivitamins/Minerals/Vitamin C (Tab-A-Vit -) 1 tab PO DAILY [facility] Last Admin: 08/29/18 10:10 Dose: 1 tab Mupirocin (Bactroban Ointment (For Decolonization) -) 1 applic NS BID [facility] Stop: 09/01/18 09:59 Last Admin: 08/29/18 10:12 Dose: Not Given Rosuvastatin Calcium (Crestor -) 10 mg PO HS [facility] Last Admin: 08/28/18 22:12 Dose: Not Given - Objective Vital Signs: Vital Signs Temperature 98.4 F 08/29/18 10:00 Pulse Rate 80 08/29/18 12:00 Respiratory Rate 24 H 08/29/18 12:00 Blood Pressure 132/78 08/29/18 12:00 O2 Sat by Pulse Oximetry (%) 100 08/29/18 10:00 Constitutional: Yes: No Distress, Calm, Thin Neck: Yes: Supple Cardiovascular: Yes: Regular Rate and Rhythm Respiratory: Yes: Regular, Diminished, On Nasal O2 Gastrointestinal: Yes: Normal Bowel Sounds, Soft Edema: No Labs: CBC, BMP 08/29/18 05:30 08/29/18 05:30 INR, PTT INR 1.23 (0.83-1.09) H 08/27/18 21:00 - ....Imaging EKG: Report Reviewed (Tele: ST) Problem List - Problems (1) Demand ischemia Code(s): I24.8 - OTHER FORMS OF ACUTE ISCHEMIC HEART DISEASE (2) Acute respiratory failure Code(s): J96.00 - ACUTE RESPIRATORY FAILURE, UNSP W HYPOXIA OR HYPERCAPNIA (3) CAD (coronary artery disease) Code(s): I25.10 - ATHSCL HEART DISEASE OF [place] CORONARY ARTERY W/O ANG PCTRS Qualifiers: Coronary Disease-Associated Artery/Lesion type: [place] artery [place] vs. transplanted heart: [place] heart Associated angina: without angina Qualified Code(s): I25.10 - Atherosclerotic heart disease of [place] coronary artery without angina pectoris (4) COPD exacerbation Code(s): J44.1 - CHRONIC OBSTRUCTIVE PULMONARY DISEASE W (ACUTE) EXACERBATION (5) HLD (hyperlipidemia) Code(s): E78.5 - HYPERLIPIDEMIA, UNSPECIFIED Qualifiers: Hyperlipidemia type: mixed hyperlipidemia Qualified Code(s): E78.2 - Mixed hyperlipidemia (6) HTN (hypertension) Code(s): I10 - ESSENTIAL (PRIMARY) HYPERTENSION Qualifiers: Hypertension type: essential hypertension Qualified Code(s): I10 - Essential (primary) hypertension Assessment/Plan 08/28/2018 Echo: Low normal LV fxn, normal RV size and fxn, mild AR 1. Post acute respiratory failure due to acute exacerbation of COPD +/- PNA 2. CAD s/p PCI/stent 3. History of HTN - episode of hypotension due to shock now improved 4. Hypercholesterolemia 5. PSVT now in sinus rhythm 6. Generalized weakness and unsteady gait 7. History of left breast CA (Stage 1, RT, 1999) 8. UTI 9. Anemia 10. Hyponatremia, resolving 11. Demand ischemia PLAN: 1. Empiric antibiotic coverage, O2 as needed to maintain saturation , BD TX , Medrol taper 2. Trops downtrending D/c Heparin gtt, continue ASA 81 qd, Crestor 10 qhs, Trilipix 135 qd 3. Restart Atenolol and ramipril in AM as hemodynamics tolerate Radiographer Technologist: Severiano Bond MD. [facility]
--- NOTE | 2018-08-29 17:09 | PN ---
Physical Exam: SUBJECTIVE: Patient seen and examined Patient seen and examined by me. Will extubate today given reassuring ABGs and saturations on vent. Will continue to monitor BP, will try to wean down levo. OBJECTIVE: Vital Signs Period Temp Pulse Resp BP Sys/Prakash Pulse Ox Last 24 Hr 98.1 F-98.6 F 58-88 22-27 114-145/52-89 100 Constitutional: NAD, currently sedated. Eyes: PERRLA, aniteric, conjunctiva clear HENT: Atraumatic, Normocephalic Neck: Supple, Trachea Midline Cardiovascular: Tachycardia, S1, S2. Negative JVD Respiratory: Mechanically Ventilated. Inspiratory stridor sounds in the RUL field. Gastrointestinal: Normal Bowel Sounds, Soft Edema: No Integumentary: Bruising throughout both legs bilaterally Psychiatric: Intubated and sedated. Laboratory Results - last 24 hr 08/28/18 08/29/18 08/29/18 22:05 05:30 05:30 WBC 6.8 RBC 2.76 L Hgb 9.7 L Hct 27.8 L MCV 100.5 H MCH 35.0 H MCHC 34.8 RDW 14.3 Plt Count 128 L MPV 8.4 PTT (Actin FS) 47.6 H Sodium Potassium Chloride Carbon Dioxide Anion Gap BUN Creatinine Creat Clearance w eGFR POC Glucometer 167 Random Glucose Calcium Phosphorus Magnesium Total Bilirubin AST ALT Alkaline Phosphatase Total Protein Albumin 08/29/18 08/29/18 05:30 12:29 WBC RBC Hgb Hct MCV MCH MCHC RDW Plt Count MPV PTT (Actin FS) 71.5 H Sodium 140 Potassium 4.9 Chloride 111 H Carbon Dioxide 25 Anion Gap 5 L BUN 27 H Creatinine 1.1 Creat Clearance w eGFR 48.29 POC Glucometer Random Glucose 132 H Calcium 7.6 L Phosphorus 1.6 L Magnesium 2.0 Total Bilirubin 0.5 AST 168 H ALT 85 H Alkaline Phosphatase 67 Total Protein 5.3 L Albumin 2.3 L Active Medications Generic Name Dose Route Start Last Admin Trade Name Freq PRN Reason Stop Dose Admin Acetaminophen 650 mg 08/27/18 18:15 Tylenol Oral Solution - PO Q6H PRN FEVER Albuterol/Ipratropium 1 amp 08/29/18 07:27 Duoneb - NEB Q4H PRN SHORTNESS OF BREATH Aspirin 81 mg 08/28/18 10:00 08/29/18 10:10 Asa - PO 81 mg DAILY [facility] Administration Chlorhexidine Gluconate 1 applic 08/27/18 22:00 08/28/18 22:12 Hibiclens For Decolonization - TP 1 applic HS [facility] Administration Chlorhexidine Gluconate 15 ml 08/27/18 11:15 08/29/18 10:10 Peridex - MM Not Given BID [facility] Fenofibric Acid 135 mg 08/28/18 10:00 08/29/18 10:11 Trilipix - PO 135 mg DAILY [facility] Administration Heparin Sodium (Porcine) 1,000 unit 08/27/18 20:54 08/29/18 08:17 Heparin - IVPUSH 1,000 unit PRN PRN Administration Heparin Heparin Sodium (Porcine) 5,000 unit 08/27/18 20:54 Heparin - IVPUSH PRN PRN Heparin Norepinephrine Bitartrate 8, 500 mls @ 18.75 mls/hr 08/27/18 01:30 08/29/18 10:12 000 mcg/ Dextrose IV Not Given TITR [facility] Protocol 5 MCG/MIN Azithromycin 500 mg in 250 mls @ 250 mls/hr 08/27/18 15:30 08/29/18 10:06 Zithromax 500mg Ivpb (Pre-Docked) IVPB 250 mls/hr DAILY [facility] Administration Propofol 1,000,000 mcg in 100 mls @ 1.4 mls/hr 08/27/18 20:45 08/29/18 06:21 Diprivan - IVPB Not Given TITR [facility] Protocol 5 MCG/KG/MIN Heparin Sodium (Porcine) 25, 500 mls @ 16 mls/hr 08/27/18 21:00 08/29/18 07: 15 000 unit/ Sodium Chloride IV 900 unit/hr TITR [facility] 18 mls/hr Administration Protocol 800 UNIT/HR Sodium Chloride 1,000 mls @ 42 mls/hr 08/27/18 21:02 08/28/18 22:10 Normal Saline - IV 42 mls/hr ASDIR [facility] Administration Ceftriaxone Sodium 1 gm/ 50 mls @ 100 mls/hr 08/28/18 10:00 08/29/18 11:30 Dextrose IVPB 100 mls/hr DAILY [facility] Administration Protocol Methylprednisolone Sodium Succinate 40 mg 08/27/18 12:00 08/29/18 10:23 Solu-Medrol - IVPUSH 40 mg Q6H-IV [facility] Administration Multivitamins/Minerals/Vitamin C 1 tab 08/28/18 10:00 08/29/18 10:10 Tab-A-Vit - PO 1 tab DAILY [facility] Administration Mupirocin 1 applic 08/27/18 10:00 08/29/18 10:12 Bactroban Ointment (For Decolonization) - NS 09/01/18 09:59 Not Given BID [facility] Rosuvastatin Calcium 10 mg 08/27/18 22:00 08/28/18 22:12 Crestor - PO Not Given HS [facility] ASSESSMENT/PLAN: 78 yo F with a hx of HTN, HLD, CAD s/p stent, L breast CA (stage 1, RT, 1999), and COPD presented initially to [place] for lethargy with subsequent UTI and hyponatremia on labs. Overnight, she developed SOB and subsequently intubated followed with pressors start due to persistent hypotension and transferred to [facility]. Lines: RIJ central line (inserted 08/26/2018; day 4), Clark catheter (inserted ; day 4) Plan: NEURO: Patient is currently extubated and doing well -Will monitor for mental status changes PULM: Acute hypoxic hypercapnic respiratory failure secondary to acute pulmonary edema vs COPD exacerbation. Given the CXR results with fast resolution of congestive changes with 40 mg of lasix, likely secondary to COPD exacerbation. -ABG has been reassuring for last two episodes; pH 7.36, pO2 161, pCO2 38.3, Bicarb 21. PaO2/FiO2 is 402.5. Currently saturating at 100% on ventilator, with FiO2 at 40% and PEEP at 5 -Continue solumedrol 40 mg QID -Successfully extubated without complications and placed on venti mask 8 Liters CV: Patient was hypotensive s/p intubation requiring pressors. -Reduced levo to 2 mcg to maintain MAP >65. Weaned down from 8 mcg -ECHO EF 50% with diastolic dysfunction -Troponin was elevated to 3.04 and now is 1.88. First troponin of 0.14 recorded on 08/26/2018 at 19:30 and second trop of 3.04 recorded at 08/27/2018 at 18:00 with a subsequent troponin of 1.88 at 5:30 on 08/28/2018. An EKG was performed at the time of the second troponin that showed poor R wave progression and inverted t wave in V2. No ST elevations or depressions noted. Cardiology was consulted. -Heparin gtt continuing -Home medications for anti-hypertensives held for now ID: Presented initially with a UTI with elevated WBC. Currently on azithromycin and ceftriazone for treatment of community acquired pneumonia Legionella urine antigen negative (lab ordered because of hyponatremia and possible earlier infiltrate on cxr) -Cultures pending -ID consulted RENAL: Initially hyponatremic on presentation at 129. Will give 75 cc/hr of NS 0.9% Continue to trend bun/cr FEN: -Nutrition consulted PPx: Heparin SQ TID 5000 units. PPI. DISPO: will monitor in the ICU and continue to wean off pressors and vent. Visit type - Emergency Visit Emergency Visit: Yes ED Registration Date: 08/26/18 Care time: The patient presented to the Emergency Department on the above date and was hospitalized for further evaluation of their emergent condition. - New Patient This patient is new to me today: No - Critical Care Critical Care patient: Yes Total Critical Care Time (in minutes): 36 Critical Care Statement: The care of this patient involved high complexity decision making to prevent further life threatening deterioration of the patient 's condition and/or to evaluate & treat vital organ system(s) failure or risk of failure. - Discharge Referral Referred to [facility] Med P.C.: No
[2018-08-29] MEDS ORDERED: chlordiazePOXIDE HCL 25 MG CAPSULE PO ONE (19:30)
[2018-08-29] MEDS ORDERED: LORazepam 2 MG/ML SDV VIAL IVPUSH ONE (20:43)
[2018-08-29] MEDS ORDERED: LORazepam 2 MG/ML SDV VIAL ONE (20:52)
[2018-08-29] MEDS: ALBUTEROL SO4 2.5/IPRATROPIUM 0.5 INH SOL 3 ML VIAL.NEB. NEB PRN (21:00)
[2018-08-29] MEDS: SODIUM CHLORIDE 1,000 ML IV SCH (22:00)
[2018-08-29] MEDS: CHLORHEXIDINE GLUCONATE 4% CLEANSER FOR DECOLONIZATION TP SCH (22:07)
[2018-08-29] MEDS: ROSUVASTATIN CA 10 MG TABLET (FP) PO SCH (23:13)
[2018-08-30] MEDS: methylPREDNISolone NA SUCC 40 MG/1 ML VIAL IVPUSH SCH ×4 (02:06→21:07)
--- NOTE | 2018-08-30 02:34 | EKG ---
Test Reason : Blood Pressure : / mmHG Vent. Rate : 093 BPM Atrial Rate : 093 BPM P-R Int : 126 ms QRS Dur : 074 ms QT Int : 394 ms P-R-T Axes : 072 062 064 degrees QTc Int : 489 ms NORMAL SINUS RHYTHM ANTERIOR INFARCT (CITED ON OR BEFORE 26-AUG-2018) ABNORMAL ECG WHEN COMPARED WITH ECG OF 26-AUG-2018 18:55, VENT. RATE HAS DECREASED BY 69 BPM QRS DURATION HAS DECREASED SERIAL CHANGES OF EVOLVING ANTERIOR INFARCT PRESENT Confirmed by ROSSI BARRIENTOS, NEY ([id number]) on 08/30/2018 2:34:11 AM Referred By: LUDWIG OCAMPO Confirmed By:NEY RICHEY MD
[2018-08-30 06:28] LABS: HEMATOCRIT 26.6 % (32.4-45.2); HEMOGLOBIN 9.2 GM/dL (10.7-15.3); MCH 34.7 pg (25.7-33.7); MCHC 34.5 g/dl (32.0-36.0); MEAN CELL VOLUME 100.7 fl (80-96); MEAN PLT VOLUME 8.8 fl (7.5-11.1); PLATELET COUNT 123 K/MM3 (134-434); RBC 2.64 M/mm3 (3.60-5.2); RDW 14.6 % (11.6-15.6); WHITE BLOOD COUNT 4.8 K/mm3 (4.0-10.0)
[2018-08-30] MEDS ORDERED: DEXTROSE 5%-WATER - 50 ML IVPB ONE (08:55)
[2018-08-30] MEDS ORDERED: cefTRIAXone SODIUM 1 GM VIAL ONE (08:55)
[2018-08-30] MEDS ORDERED: PT OWN MED DRAWER 7, Y5N ONE (08:57)
--- NOTE | 2018-08-30 08:57 | PN ---
Physical Exam: SUBJECTIVE: Patient seen and examined Patient was seen and examined by me. Patient was transferred to [facility], but due to a rapid for another patient requiring her bed space, she was transferred back to the ICU. Patient has no symptomatic complaints today and is saturating well on nasal canula. OBJECTIVE: Vital Signs Period Temp Pulse Resp BP Sys/Prakash Pulse Ox Last 24 Hr 97.5 F-98.6 F 51-108 20-28 127-161/48-89 100-100 GENERAL: The patient is awake, alert, and fully oriented, in no acute distress. HEAD: Normal with no signs of trauma. EYES: PERRL, extraocular movements intact, sclera anicteric, conjunctiva clear. No ptosis. ENT: Ears normal, nares patent, oropharynx clear without exudates, moist mucous membranes. NECK: Trachea midline, full range of motion, supple. LUNGS: decreased breath sounds bilaterally mild, slight rhonchi bilateral. no crackles or wheezes HEART: Regular rate and rhythm, S1, S2 without murmur, rub or gallop. ABDOMEN: Soft, nontender, nondistended, normoactive bowel sounds, no guarding, no rebound, no hepatosplenomegaly, no masses. EXTREMITIES: 2+ pulses, warm, well-perfused, no edema. NEUROLOGICAL: Cranial nerves II through XII grossly intact. Normal speech, gait not observed. PSYCH: Normal mood, normal affect. SKIN: Warm, dry, normal turgor, no rashes or lesions noted Laboratory Results - last 24 hr 08/29/18 08/30/18 08/30/18 12:29 05:30 05:30 WBC 4.8 RBC 2.64 L Hgb 9.2 L Hct 26.6 L MCV 100.7 H MCH 34.7 H MCHC 34.5 RDW 14.6 Plt Count 123 L MPV 8.8 PTT (Actin FS) 71.5 H 81.4 H Active Medications Generic Name Dose Route Start Last Admin Trade Name Freq PRN Reason Stop Dose Admin Acetaminophen 650 mg 08/27/18 18:15 Tylenol Oral Solution - PO Q6H PRN FEVER Albuterol/Ipratropium 1 amp 08/29/18 07:27 08/29/18 21:00 Duoneb - NEB 1 amp Q4H PRN Administration SHORTNESS OF BREATH Aspirin 81 mg 08/28/18 10:00 08/29/18 10:10 Asa - PO 81 mg DAILY [facility] Administration Chlorhexidine Gluconate 1 applic 08/27/18 22:00 08/29/18 22:07 Hibiclens For Decolonization - TP 1 applic HS [facility] Administration Fenofibric Acid 135 mg 08/28/18 10:00 08/29/18 10:11 Trilipix - PO 135 mg DAILY [facility] Administration Heparin Sodium (Porcine) 1,000 unit 08/27/18 20:54 08/29/18 08:17 Heparin - IVPUSH 1,000 unit PRN PRN Administration Heparin Heparin Sodium (Porcine) 5,000 unit 08/27/18 20:54 Heparin - IVPUSH PRN PRN Heparin Azithromycin 500 mg in 250 mls @ 250 mls/hr 08/27/18 15:30 08/29/18 10:06 Zithromax 500mg Ivpb (Pre-Docked) IVPB 250 mls/hr DAILY [facility] Administration Heparin Sodium (Porcine) 25, 500 mls @ 16 mls/hr 08/27/18 21:00 08/29/18 22: 00 000 unit/ Sodium Chloride IV 900 unit/hr TITR [facility] 18 mls/hr Administration Protocol 800 UNIT/HR Sodium Chloride 1,000 mls @ 42 mls/hr 08/27/18 21:02 08/29/18 22:00 Normal Saline - IV 42 mls/hr ASDIR [facility] Administration Ceftriaxone Sodium 1 gm/ 50 mls @ 100 mls/hr 08/28/18 10:00 08/29/18 11:30 Dextrose IVPB 100 mls/hr DAILY [facility] Administration Protocol Lorazepam 2 mg 08/29/18 23:07 Ativan Injection - IVPUSH Q8H PRN ANXIETY Methylprednisolone Sodium Succinate 40 mg 08/27/18 12:00 08/30/18 02:06 Solu-Medrol - IVPUSH 40 mg Q6H-IV [facility] Administration Multivitamins/Minerals/Vitamin C 1 tab 08/28/18 10:00 08/29/18 10:10 Tab-A-Vit - PO 1 tab DAILY [facility] Administration Mupirocin 1 applic 08/27/18 10:00 08/29/18 22:04 Bactroban Ointment (For Decolonization) - NS 09/01/18 09:59 1 applic BID [facility] Administration Rosuvastatin Calcium 10 mg 08/27/18 22:00 08/29/18 23:13 Crestor - PO 10 mg HS [facility] Administration ASSESSMENT/PLAN: 78 yo F with a hx of HTN, HLD, CAD s/p stent, L breast CA (stage 1, RT, 1999), and COPD presented initially to [place] for lethargy with subsequent UTI and hyponatremia on labs. Overnight, she developed SOB and subsequently intubated followed with pressors start due to persistent hypotension and transferred to [facility] ICU. Lines: RIJ central line (inserted 08/26/2018; dc'd 08/29/2018), Clark catheter ( inserted 08/26/2018; dc'd 08/29/2018) Plan: NEURO: Patient is currently extubated and doing well -Will monitor for mental status changes PULM: Acute hypoxic hypercapnic respiratory failure secondary to acute pulmonary edema vs COPD exacerbation. Given the CXR results with fast resolution of congestive changes with 40 mg of lasix, likely secondary to COPD exacerbation. -ABG has been reassuring for last two episodes; pH 7.36, pO2 161, pCO2 38.3, Bicarb 21. PaO2/FiO2 is 402.5. Currently saturating at 100% on ventilator, with FiO2 at 40% and PEEP at 5 -Continue solumedrol 40 mg QID -Successfully extubated without complications -Currently on nc CV: Patient was hypotensive s/p intubation requiring pressors. -Off NE -ECHO EF 50% with diastolic dysfunction -Troponin was elevated to 3.04 and now is 1.88. First troponin of 0.14 recorded on 08/26/2018 at 19:30 and second trop of 3.04 recorded at 08/27/2018 at 18:00 with a subsequent troponin of 1.88 at 5:30 on 08/28/2018. An EKG was performed at the time of the second troponin that showed poor R wave progression and inverted t wave in V2. No ST elevations or depressions noted. Cardiology was consulted. -Heparin gtt continuing -Home medications for anti-hypertensives to be restarted -DC'd central line yesterday ID: Presented initially with a UTI with elevated WBC. Currently on azithromycin and ceftriazone for treatment of community acquired pneumonia Legionella urine antigen negative (lab ordered because of hyponatremia and possible earlier infiltrate on cxr) -Cultures pending; continues to have no growth -ID consulted RENAL: Initially hyponatremic on presentation at 129. Continue to trend bun/cr FEN: -Nutrition consulted PPx: Heparin SQ TID 5000 units. PPI. DISPO: will go to floor today Visit type - Emergency Visit Emergency Visit: Yes ED Registration Date: 08/26/18 Care time: The patient presented to the Emergency Department on the above date and was hospitalized for further evaluation of their emergent condition. - New Patient This patient is new to me today: No - Critical Care Critical Care patient: Yes Total Critical Care Time (in minutes): 36 Critical Care Statement: The care of this patient involved high complexity decision making to prevent further life threatening deterioration of the patient 's condition and/or to evaluate & treat vital organ system(s) failure or risk of failure. - Discharge Referral Referred to [facility] Med P.C.: No
[2018-08-30] MEDS: MUPIROCIN 2% TOPICAL OINTMENT FOR DECOLONIZATION NS SCH ×2 (09:00→21:08)
[2018-08-30] MEDS: ASPIRIN 81 MG CHEWABLE TABLETS PO SCH (09:00)
[2018-08-30] MEDS: CEFTRIAXONE 1 GM in DEXTROSE 5%-WATER - 50 ML IVPB SCH (09:01)
[2018-08-30] MEDS: FENOFIBRIC ACID 135 MG CAP PO SCH (09:01)
[2018-08-30] MEDS: MULTIVITAMINS (DAILY MVI) TABLET (FP) PO SCH (09:01)
[2018-08-30] MEDS: AZITHROMYCIN IVPB 500 MG/250 ML BAG IVPB SCH (09:02)
--- NOTE | 2018-08-30 09:20 | PN ---
Progress Note, Physician History of Present Illness: Breathing improved. - Current Medication List Current Medications: Active Medications Acetaminophen (Tylenol Oral Solution -) 650 mg PO Q6H PRN PRN Reason: FEVER Albuterol/Ipratropium (Duoneb -) 1 amp NEB Q4H PRN PRN Reason: SHORTNESS OF BREATH Last Admin: 08/29/18 21:00 Dose: 1 amp Aspirin (Asa -) 81 mg PO DAILY [facility] Last Admin: 08/30/18 09:00 Dose: 81 mg Chlorhexidine Gluconate (Hibiclens For Decolonization -) 1 applic TP HS [facility] Last Admin: 08/29/18 22:07 Dose: 1 applic Fenofibric Acid (Trilipix -) 135 mg PO DAILY [facility] Last Admin: 08/30/18 09:01 Dose: 135 mg Heparin Sodium (Porcine) (Heparin -) 1,000 unit IVPUSH PRN PRN PRN Reason: Heparin Last Admin: 08/29/18 08:17 Dose: 1,000 unit Heparin Sodium (Porcine) (Heparin -) 5,000 unit IVPUSH PRN PRN PRN Reason: Heparin Azithromycin (Zithromax 500mg Ivpb (Pre-Docked)) 500 mg in 250 mls @ 250 mls/ hr IVPB DAILY [facility] Last Admin: 08/30/18 09:02 Dose: 250 mls/hr Heparin Sodium (Porcine) 25, (000 unit/ Sodium Chloride) 500 mls @ 16 mls/hr IV TITR [facility]; Protocol Last Admin: 08/29/18 22:00 Dose: 900 unit/hr, 18 mls/hr Sodium Chloride (Normal Saline -) 1,000 mls @ 42 mls/hr IV ASDIR [facility] Last Admin: 08/29/18 22:00 Dose: 42 mls/hr Ceftriaxone Sodium 1 gm/ (Dextrose) 50 mls @ 100 mls/hr IVPB DAILY [facility]; Protocol Last Admin: 08/30/18 09:01 Dose: 100 mls/hr Lorazepam (Ativan Injection -) 2 mg IVPUSH Q8H PRN PRN Reason: ANXIETY Methylprednisolone Sodium Succinate (Solu-Medrol -) 40 mg IVPUSH Q6H-IV [facility] Last Admin: 08/30/18 08:59 Dose: 40 mg Multivitamins/Minerals/Vitamin C (Tab-A-Vit -) 1 tab PO DAILY [facility] Last Admin: 08/30/18 09:01 Dose: 1 tab Mupirocin (Bactroban Ointment (For Decolonization) -) 1 applic NS BID [facility] Stop: 09/01/18 09:59 Last Admin: 08/30/18 09:00 Dose: 1 applic Rosuvastatin Calcium (Crestor -) 10 mg PO HS [facility] Last Admin: 08/29/18 23:13 Dose: 10 mg - Objective Vital Signs: Vital Signs Temperature 97.8 F 08/30/18 06:00 Pulse Rate 83 08/30/18 08:00 Respiratory Rate 24 H 08/30/18 08:00 Blood Pressure 149/59 L 08/30/18 08:00 O2 Sat by Pulse Oximetry (%) 100 08/29/18 20:05 Constitutional: Yes: No Distress, Calm, Thin Neck: Yes: Supple Cardiovascular: Yes: Regular Rate and Rhythm Respiratory: Yes: Regular, Diminished, On Nasal O2 Gastrointestinal: Yes: Soft, Hypoactive Bowel Sounds Edema: No Labs: CBC, BMP 08/30/18 05:30 08/29/18 05:30 INR, PTT INR 1.23 (0.83-1.09) H 08/27/18 21:00 - ....Imaging EKG: Report Reviewed (Tele: NSR) Problem List - Problems (1) Demand ischemia Code(s): I24.8 - OTHER FORMS OF ACUTE ISCHEMIC HEART DISEASE (2) Acute respiratory failure Code(s): J96.00 - ACUTE RESPIRATORY FAILURE, UNSP W HYPOXIA OR HYPERCAPNIA (3) CAD (coronary artery disease) Code(s): I25.10 - ATHSCL HEART DISEASE OF [place] CORONARY ARTERY W/O ANG PCTRS Qualifiers: Coronary Disease-Associated Artery/Lesion type: [place] artery [place] vs. transplanted heart: [place] heart Associated angina: without angina Qualified Code(s): I25.10 - Atherosclerotic heart disease of [place] coronary artery without angina pectoris (4) COPD exacerbation Code(s): J44.1 - CHRONIC OBSTRUCTIVE PULMONARY DISEASE W (ACUTE) EXACERBATION (5) HLD (hyperlipidemia) Code(s): E78.5 - HYPERLIPIDEMIA, UNSPECIFIED Qualifiers: Hyperlipidemia type: mixed hyperlipidemia Qualified Code(s): E78.2 - Mixed hyperlipidemia (6) HTN (hypertension) Code(s): I10 - ESSENTIAL (PRIMARY) HYPERTENSION Qualifiers: Hypertension type: essential hypertension Qualified Code(s): I10 - Essential (primary) hypertension Assessment/Plan 08/28/2018 Echo: Low normal LV fxn, normal RV size and fxn, mild AR 1. Post acute respiratory failure due to acute exacerbation of COPD +/- PNA 2. CAD s/p PCI/stent 3. History of HTN - episode of hypotension due to shock now improved 4. Hypercholesterolemia 5. PSVT now in sinus rhythm 6. Generalized weakness and unsteady gait 7. History of left breast CA (Stage 1, RT, 1999) 8. UTI 9. Anemia 10. Hyponatremia, resolved 11. Demand ischemia PLAN: 1. Empiric antibiotic coverage, O2 as needed to maintain saturation , BD TX , Medrol taper 2. Trops downtrending d/c Heparin gtt, continue ASA 81 qd, Crestor 10 qhs, Trilipix 135 qd 3. Restart Atenolol and ramipril today as hemodynamics tolerate Voip Engineer: Severiano Bond MD. [facility]
--- NOTE | 2018-08-30 10:21 | PN ---
Physical Exam: SUBJECTIVE: Patient seen and examined at the bedside. on 3 liters of nasal cannula. denies any shortness of breath. OBJECTIVE: Vital Signs Period Temp Pulse Resp BP Sys/Prakash Pulse Ox Last 24 Hr 97.5 F-98.6 F 51-108 20-28 127-161/48-87 100-100 GENERAL: awake, alert, in no acute distress. extubated. tolerating supplemental oxygen HEAD: Normal with no signs of trauma. EYES: PERRL, extraocular movements intact, sclera anicteric, conjunctiva clear. No ptosis. ENT: Ears normal, nares patent, oropharynx clear without exudates, moist mucous membranes. NECK: Trachea midline, full range of motion, supple. LUNGS: Breath sounds equal, clear to auscultation anteriorly HEART: rrr on coffee maker servicer ABDOMEN: Soft, nontender, nondistended, normoactive bowel sounds, no guarding EXTREMITIES: no edema, discoloration of bilateral lower extremities. SKIN: Warm, dry, normal turgor, no rashes or lesions noted Laboratory Results - last 24 hr 08/29/18 08/30/18 08/30/18 12:29 05:30 05:30 WBC 4.8 RBC 2.64 L Hgb 9.2 L Hct 26.6 L MCV 100.7 H MCH 34.7 H MCHC 34.5 RDW 14.6 Plt Count 123 L MPV 8.8 PTT (Actin FS) 71.5 H 81.4 H Active Medications Generic Name Dose Route Start Last Admin Trade Name Freq PRN Reason Stop Dose Admin Acetaminophen 650 mg 08/27/18 18:15 Tylenol Oral Solution - PO Q6H PRN FEVER Albuterol/Ipratropium 1 amp 08/29/18 07:27 08/29/18 21:00 Duoneb - NEB 1 amp Q4H PRN Administration SHORTNESS OF BREATH Aspirin 81 mg 08/28/18 10:00 08/30/18 09:00 Asa - PO 81 mg DAILY [facility] Administration Atenolol 25 mg 08/30/18 10:00 Tenormin - PO DAILY [facility] Chlorhexidine Gluconate 1 applic 08/27/18 22:00 08/29/18 22:07 Hibiclens For Decolonization - TP 1 applic HS [facility] Administration Fenofibric Acid 135 mg 08/28/18 10:00 08/30/18 09:01 Trilipix - PO 135 mg DAILY [facility] Administration Azithromycin 500 mg in 250 mls @ 250 mls/hr 08/27/18 15:30 08/30/18 09:02 Zithromax 500mg Ivpb (Pre-Docked) IVPB 250 mls/hr DAILY [facility] Administration Sodium Chloride 1,000 mls @ 42 mls/hr 08/27/18 21:02 08/29/18 22:00 Normal Saline - IV 42 mls/hr ASDIR [facility] Administration Ceftriaxone Sodium 1 gm/ 50 mls @ 100 mls/hr 08/28/18 10:00 08/30/18 09:01 Dextrose IVPB 100 mls/hr DAILY [facility] Administration Protocol Lorazepam 2 mg 08/29/18 23:07 Ativan Injection - IVPUSH Q8H PRN ANXIETY Methylprednisolone Sodium Succinate 40 mg 08/27/18 12:00 08/30/18 08:59 Solu-Medrol - IVPUSH 40 mg Q6H-IV [facility] Administration Multivitamins/Minerals/Vitamin C 1 tab 08/28/18 10:00 08/30/18 09:01 Tab-A-Vit - PO 1 tab DAILY [facility] Administration Mupirocin 1 applic 08/27/18 10:00 08/30/18 09:00 Bactroban Ointment (For Decolonization) - NS 09/01/18 09:59 1 applic BID [facility] Administration Ramipril 2.5 mg 08/30/18 10:00 Altace - PO DAILY [facility] Rosuvastatin Calcium 10 mg 08/27/18 22:00 08/29/18 23:13 Crestor - PO 10 mg HS [facility] Administration ASSESSMENT/PLAN: Patient is a 78 year old female with a significant past medical history of HTN, HLD, CAD s/p stent, L breast CA (stage 1) and COPD. Initially presented to [place] with UTI and hyponatremia on labs. Developed shortness of breath and intubated on admission for airway protection, extubated on 08/28/18. Pulmonary: Acute hypoxic hypercapnic respiratory failure COPD exacerbation/pneumonia extubated 08/28/18. Currently tolerating 3 liters of nasal cannula. On solumedrol 40mg q 8 hours On ceftrriaxone/azitrhomycin empirically per ID Maintain oxygen saturations above 90% Pulmonary following Card: Elevated troponins, now downtrending heparin drip discontinued. On ASA 81mg, Crestor 10mg, Trilipix 135 qd cardiology following. Hypertension: Started on atenolol and rampiril Renal: Initially hyponatremic, now resolved. fen tolerating PO monitor electrolytes prophy: SCDs PPI. Visit type - Emergency Visit Emergency Visit: Yes ED Registration Date: 08/26/18 Care time: The patient presented to the Emergency Department on the above date and was hospitalized for further evaluation of their emergent condition. - New Patient This patient is new to me today: No - Critical Care Critical Care patient: Yes Total Critical Care Time (in minutes): 45 Critical Care Statement: The care of this patient involved high complexity decision making to prevent further life threatening deterioration of the patient 's condition and/or to evaluate & treat vital organ system(s) failure or risk of failure.
[2018-08-30 10:26] LABS: ALBUMIN 2.3 g/dl (3.4-5.0); ALK PHOS 65 U/L (45-117); ANION GAP 8 MMOL/L (8-16); BILIRUBIN,TOTAL 0.5 mg/dL (0.2-1); BLOOD UREA NITROGEN 32 mg/dL (7-18); CALCIUM 7.4 mg/dL (8.5-10.1); CHLORIDE 114 mmol/L (98-107); CO2 22 mmol/L (21-32); GLUCOSE,RANDOM 123 mg/dL (74-106); PHOSPHOROUS 2.1 mg/dL (2.5-4.9); POTASSIUM 4.7 mmol/L (3.5-5.1); SGOT/AST 93 U/L (15-37); SGPT/ALT 72 U/L (13-61); SODIUM 144 mmol/L (136-145); TOT PROT 5.1 g/dl (6.4-8.2)
--- NOTE | 2018-08-30 10:40 | PN ---
Teaching Attending Note Name of Resident: Cipriano Rutledge ATTENDING PHYSICIAN STATEMENT I saw and evaluated the patient. I reviewed the resident's note and discussed the case with the resident. I agree with the resident's findings and plan as documented. SUBJECTIVE: Patient seen and examined in the ICU. Remains exubated. Awake and alert, mildly confused. Remains off NE for hemodynamic support. Intake & Output 08/27/18 08/28/18 08/29/18 08/30/18 23:59 23:59 23:59 23:59 Intake Total 1541.8 1967.6 754 698 Output Total 500 2000 1000 800 Balance 1041.8 -32.4 -246 -102 Weight 102 lb 14.4 oz 109 lb Last Vital Signs Temp Pulse Resp BP Pulse Ox 98 F 82 20 142/57 L 100 08/30/18 09:59 08/30/18 10:00 08/30/18 10:00 08/30/18 10:00 08/30/18 09:00 Active Medications Acetaminophen (Tylenol Oral Solution -) 650 mg PO Q6H PRN PRN Reason: FEVER Albuterol/Ipratropium (Duoneb -) 1 amp NEB Q4H PRN PRN Reason: SHORTNESS OF BREATH Last Admin: 08/29/18 21:00 Dose: 1 amp Aspirin (Asa -) 81 mg PO DAILY [facility] Last Admin: 08/30/18 09:00 Dose: 81 mg Atenolol (Tenormin -) 25 mg PO DAILY [facility] Chlorhexidine Gluconate (Hibiclens For Decolonization -) 1 applic TP HS [facility] Last Admin: 08/29/18 22:07 Dose: 1 applic Fenofibric Acid (Trilipix -) 135 mg PO DAILY [facility] Last Admin: 08/30/18 09:01 Dose: 135 mg Azithromycin (Zithromax 500mg Ivpb (Pre-Docked)) 500 mg in 250 mls @ 250 mls/ hr IVPB DAILY [facility] Last Admin: 08/30/18 09:02 Dose: 250 mls/hr Sodium Chloride (Normal Saline -) 1,000 mls @ 42 mls/hr IV [facility] Last Admin: 08/29/18 22:00 Dose: 42 mls/hr Ceftriaxone Sodium 1 gm/ (Dextrose) 50 mls @ 100 mls/hr IVPB DAILY [facility]; Protocol Last Admin: 08/30/18 09:01 Dose: 100 mls/hr Lorazepam (Ativan Injection -) 2 mg IVPUSH Q8H PRN PRN Reason: ANXIETY Methylprednisolone Sodium Succinate (Solu-Medrol -) 40 mg IVPUSH Q6H-IV [facility] Last Admin: 08/30/18 08:59 Dose: 40 mg Multivitamins/Minerals/Vitamin C (Tab-A-Vit -) 1 tab PO DAILY [facility] Last Admin: 08/30/18 09:01 Dose: 1 tab Mupirocin (Bactroban Ointment (For Decolonization) -) 1 applic NS BID [facility] Stop: 09/01/18 09:59 Last Admin: 08/30/18 09:00 Dose: 1 applic Ramipril (Altace -) 2.5 mg PO DAILY [facility] Rosuvastatin Calcium (Crestor -) 10 mg PO HS [facility] Last Admin: 08/29/18 23:13 Dose: 10 mg Constitutional: Yes: Extubated, awake and alert Eyes: Yes: Conjunctiva Clear HENT: Yes: Atraumatic, Normocephalic Neck: Yes: Supple, Trachea Midline Cardiovascular: Yes: Tachycardia, S1, S2. No: JVD Respiratory: Yes: few scattered expiratory wheeze and rhonchi Gastrointestinal: Yes: Normal Bowel Sounds, Soft Edema: No Integumentary: Yes: Skin Tear (right leg) Labs: Laboratory Results - last 24 hr 08/29/18 08/30/18 08/30/18 12:29 05:30 05:30 WBC 4.8 RBC 2.64 L Hgb 9.2 L Hct 26.6 L MCV 100.7 H MCH 34.7 H MCHC 34.5 RDW 14.6 Plt Count 123 L MPV 8.8 PTT (Actin FS) 71.5 H 81.4 H Sodium Potassium Chloride Carbon Dioxide Anion Gap BUN Creatinine Creat Clearance w eGFR Random Glucose Calcium Phosphorus Magnesium Total Bilirubin AST ALT Alkaline Phosphatase Total Protein Albumin 08/30/18 05:30 WBC RBC Hgb Hct MCV MCH MCHC RDW Plt Count MPV PTT (Actin FS) Sodium 144 Potassium 4.7 Chloride 114 H Carbon Dioxide 22 Anion Gap 8 BUN 32 H Creatinine 1.0 Creat Clearance w eGFR 53.91 Random Glucose 123 H Calcium 7.4 L Phosphorus 2.1 L Magnesium 2.0 Total Bilirubin 0.5 AST 93 H ALT 72 H Alkaline Phosphatase 65 Total Protein 5.1 L Albumin 2.3 L Assessment/Plan Acute Respiratory Failure due to AE of COPD Low clinical suspicion of Pulmonary edema Septic Shock: (?) PNA (?) UTI HTN HLD CAD s/p PCI Left Breast Ca (Stage 1, RT, 1999) Smoker O2 as needed to maintain saturation BD TX Medrol ABX per ID D/C CVC D/C [place] [facility] I & O Cardiac Telemetry monitoring Dr Macedo
[2018-08-30] MEDS: ATENOLOL 25 MG TABLET (FP) PO SCH (11:27)
[2018-08-30] MEDS: RAMIPRIL 2.5 MG CAPSULE (FP) PO SCH (11:27)
--- NOTE | 2018-08-30 11:34 | PN ---
Progress Note, Physician History of Present Illness: EXTUBATED LETHARGIC CONFUSED OFFERS NO COMPLAINTS SLIGHTLY TACHYPNEIC TEMPS DOWN AFEBRILE BC (-) SPUTUM C/S LEGIONELLA AG (-) - Current Medication List Current Medications: Active Medications Acetaminophen (Tylenol Oral Solution -) 650 mg PO Q6H PRN PRN Reason: FEVER Albuterol/Ipratropium (Duoneb -) 1 amp NEB Q4H PRN PRN Reason: SHORTNESS OF BREATH Last Admin: 08/29/18 21:00 Dose: 1 amp Aspirin (Asa -) 81 mg PO DAILY [facility] Last Admin: 08/30/18 09:00 Dose: 81 mg Atenolol (Tenormin -) 25 mg PO DAILY [facility] Last Admin: 08/30/18 11:27 Dose: 25 mg Chlorhexidine Gluconate (Hibiclens For Decolonization -) 1 applic TP HS [facility] Last Admin: 08/29/18 22:07 Dose: 1 applic Fenofibric Acid (Trilipix -) 135 mg PO DAILY [facility] Last Admin: 08/30/18 09:01 Dose: 135 mg Azithromycin (Zithromax 500mg Ivpb (Pre-Docked)) 500 mg in 250 mls @ 250 mls/ hr IVPB DAILY [facility] Last Admin: 08/30/18 09:02 Dose: 250 mls/hr Sodium Chloride (Normal Saline -) 1,000 mls @ 42 mls/hr IV ASD[facility] Last Admin: 08/29/18 22:00 Dose: 42 mls/hr Ceftriaxone Sodium 1 gm/ (Dextrose) 50 mls @ 100 mls/hr IVPB DAILY [facility]; Protocol Last Admin: 08/30/18 09:01 Dose: 100 mls/hr Lorazepam (Ativan Injection -) 2 mg IVPUSH Q8H PRN PRN Reason: ANXIETY Methylprednisolone Sodium Succinate (Solu-Medrol -) 40 mg IVPUSH Q6H-IV [facility] Last Admin: 08/30/18 08:59 Dose: 40 mg Multivitamins/Minerals/Vitamin C (Tab-A-Vit -) 1 tab PO DAILY [facility] Last Admin: 08/30/18 09:01 Dose: 1 tab Mupirocin (Bactroban Ointment (For Decolonization) -) 1 applic NS BID [facility] Stop: 09/01/18 09:59 Last Admin: 08/30/18 09:00 Dose: 1 applic Ramipril (Altace -) 2.5 mg PO DAILY [facility] Last Admin: 08/30/18 11:27 Dose: 2.5 mg Rosuvastatin Calcium (Crestor -) 10 mg PO HS [facility] Last Admin: 08/29/18 23:13 Dose: 10 mg - Objective Vital Signs: Vital Signs Temperature 98 F 08/30/18 09:59 Pulse Rate 82 08/30/18 10:00 Respiratory Rate 20 08/30/18 10:00 Blood Pressure 142/57 L 08/30/18 10:00 O2 Sat by Pulse Oximetry (%) 100 08/30/18 09:00 Cardiovascular: Yes: Regular Rate and Rhythm, S1, S2 Respiratory: Yes: Diminished Gastrointestinal: Yes: Normal Bowel Sounds, Soft. No: Tenderness Edema: No Labs: CBC, BMP 08/30/18 05:30 08/30/18 05:30 INR, PTT INR 1.23 (0.83-1.09) H 08/27/18 21:00 Assessment/Plan S/P RESP FAILURE PNEUMONIA THROMBOCYTOPENIA ELEVATED LFTS FEVER- IMPROVED AWAIT C/S CONTINUE CEFTRIAXONE/ ZITHROMAX
[2018-08-30] MEDS: SODIUM CHLORIDE 1,000 ML IV SCH (14:18)
[2018-08-30] MEDS: LORazepam 2 MG/ML SDV VIAL IVPUSH PRN (19:01)
[2018-08-30] MEDS: ALBUTEROL SO4 2.5/IPRATROPIUM 0.5 INH SOL 3 ML VIAL.NEB. NEB PRN (19:39)
[2018-08-30] MEDS: CHLORHEXIDINE GLUCONATE 4% CLEANSER FOR DECOLONIZATION TP SCH (21:08)
[2018-08-30] MEDS: ROSUVASTATIN CA 10 MG TABLET (FP) PO SCH (21:09)
[2018-08-31] MEDS: methylPREDNISolone NA SUCC 40 MG/1 ML VIAL IVPUSH SCH ×4 (03:00→23:12)
--- NOTE | 2018-08-31 09:40 | PN ---
Progress Note, Physician History of Present Illness: Breathing and sensorium improved. - Current Medication List Current Medications: Active Medications Acetaminophen (Tylenol Oral Solution -) 650 mg PO Q6H PRN PRN Reason: FEVER Albuterol/Ipratropium (Duoneb -) 1 amp NEB Q4H PRN PRN Reason: SHORTNESS OF BREATH Last Admin: 08/30/18 19:39 Dose: 1 amp Aspirin (Asa -) 81 mg PO DAILY [facility] Last Admin: 08/30/18 09:00 Dose: 81 mg Atenolol (Tenormin -) 25 mg PO DAILY [facility] Last Admin: 08/30/18 11:27 Dose: 25 mg Chlorhexidine Gluconate (Hibiclens For Decolonization -) 1 applic TP HS [facility] Last Admin: 08/30/18 21:08 Dose: Not Given Fenofibric Acid (Trilipix -) 135 mg PO DAILY [facility] Last Admin: 08/30/18 09:01 Dose: 135 mg Azithromycin (Zithromax 500mg Ivpb (Pre-Docked)) 500 mg in 250 mls @ 250 mls/ hr IVPB DAILY [facility] Last Admin: 08/30/18 09:02 Dose: 250 mls/hr Sodium Chloride (Normal Saline -) 1,000 mls @ 42 mls/hr IV [facility] Last Admin: 08/30/18 14:18 Dose: 42 mls/hr Ceftriaxone Sodium 1 gm/ (Dextrose) 50 mls @ 100 mls/hr IVPB DAILY [facility]; Protocol Last Admin: 08/30/18 09:01 Dose: 100 mls/hr Lorazepam (Ativan Injection -) 2 mg IVPUSH Q8H PRN PRN Reason: ANXIETY Last Admin: 08/30/18 19:01 Dose: 2 mg Methylprednisolone Sodium Succinate (Solu-Medrol -) 40 mg IVPUSH Q6H-IV [facility] Last Admin: 08/31/18 03:00 Dose: 40 mg Multivitamins/Minerals/Vitamin C (Tab-A-Vit -) 1 tab PO DAILY [facility] Last Admin: 08/30/18 09:01 Dose: 1 tab Mupirocin (Bactroban Ointment (For Decolonization) -) 1 applic NS BID [facility] Stop: 09/01/18 09:59 Last Admin: 08/30/18 21:08 Dose: Not Given Ramipril (Altace -) 2.5 mg PO DAILY [facility] Last Admin: 08/30/18 11:27 Dose: 2.5 mg Rosuvastatin Calcium (Crestor -) 10 mg PO HS [facility] Last Admin: 08/30/18 21:09 Dose: Not Given - Objective Vital Signs: Vital Signs Temperature 97.8 F 08/31/18 05:27 Pulse Rate 86 08/31/18 05:27 Respiratory Rate 20 08/31/18 05:27 Blood Pressure 142/80 08/31/18 05:27 O2 Sat by Pulse Oximetry (%) 97 08/30/18 22:00 Constitutional: Yes: No Distress, Calm, Thin Neck: Yes: Supple Cardiovascular: Yes: Regular Rate and Rhythm Respiratory: Yes: Regular, Diminished, On Nasal O2 Gastrointestinal: Yes: Normal Bowel Sounds, Soft Edema: No Labs: CBC, BMP 08/30/18 05:30 INR, PTT INR 1.23 (0.83-1.09) H 08/27/18 21:00 - ....Imaging EKG: Report Reviewed (Tele: PSVT->NSR) Problem List - Problems (1) Demand ischemia Code(s): I24.8 - OTHER FORMS OF ACUTE ISCHEMIC HEART DISEASE (2) Acute respiratory failure Code(s): J96.00 - ACUTE RESPIRATORY FAILURE, UNSP W HYPOXIA OR HYPERCAPNIA (3) CAD (coronary artery disease) Code(s): I25.10 - ATHSCL HEART DISEASE OF [place] CORONARY ARTERY W/O ANG PCTRS Qualifiers: Coronary Disease-Associated Artery/Lesion type: [place] artery [place] vs. transplanted heart: [place] heart Associated angina: without angina Qualified Code(s): I25.10 - Atherosclerotic heart disease of [place] coronary artery without angina pectoris (4) COPD exacerbation Code(s): J44.1 - CHRONIC OBSTRUCTIVE PULMONARY DISEASE W (ACUTE) EXACERBATION (5) HLD (hyperlipidemia) Code(s): E78.5 - HYPERLIPIDEMIA, UNSPECIFIED Qualifiers: Hyperlipidemia type: mixed hyperlipidemia Qualified Code(s): E78.2 - Mixed hyperlipidemia (6) HTN (hypertension) Code(s): I10 - ESSENTIAL (PRIMARY) HYPERTENSION Qualifiers: Hypertension type: essential hypertension Qualified Code(s): I10 - Essential (primary) hypertension (7) PSVT (paroxysmal supraventricular tachycardia) Code(s): I47.1 - SUPRAVENTRICULAR TACHYCARDIA (8) UTI (urinary tract infection) Code(s): N39.0 - URINARY TRACT INFECTION, SITE NOT SPECIFIED Qualifiers: Urinary tract infection type: site unspecified Hematuria presence: without hematuria Qualified Code(s): N39.0 - Urinary tract infection, site not specified Assessment/Plan 08/28/2018 Echo: Low normal LV fxn, normal RV size and fxn, mild AR 1. Post acute respiratory failure due to acute exacerbation of COPD +/- PNA 2. CAD s/p PCI/stent 3. HTN - episode of hypotension due to shock now improved 4. Hypercholesterolemia 5. PSVT now in sinus rhythm 6. Generalized weakness and unsteady gait 7. History of left breast CA (Stage 1, RT, 1999) 8. UTI 9. Anemia 10. Hyponatremia, resolved 11. Demand ischemia PLAN: 1. Empiric antibiotic coverage, O2 as needed to maintain saturation , BD TX , Medrol taper 2. Continue ASA 81 qd, Crestor 10 qhs, Trilipix 135 qd 3. Increase Atenolol 50 qd and ramipril 2.5 qd as hemodynamics tolerate 4. PT->SNF Fishing Manager: Severiano Bond MD. [facility]
[2018-08-31] MEDS: FENOFIBRIC ACID 135 MG CAP PO SCH (09:52)
[2018-08-31] MEDS: MULTIVITAMINS (DAILY MVI) TABLET (FP) PO SCH (09:52)
[2018-08-31] MEDS: ASPIRIN 81 MG CHEWABLE TABLETS PO SCH (09:53)
[2018-08-31] MEDS: RAMIPRIL 2.5 MG CAPSULE (FP) PO SCH (09:53)
[2018-08-31] MEDS: MUPIROCIN 2% TOPICAL OINTMENT FOR DECOLONIZATION NS SCH ×2 (09:53→22:10)
[2018-08-31] MEDS: AZITHROMYCIN IVPB 500 MG/250 ML BAG IVPB SCH (09:53)
[2018-08-31] MEDS: ATENOLOL 25 MG TABLET (FP) PO SCH ×2 (09:53→11:41)
[2018-08-31] MEDS ORDERED: cefTRIAXone SODIUM 1 GM VIAL ONE (11:24)
[2018-08-31] MEDS ORDERED: DEXTROSE 5%-WATER - 50 ML IVPB ONE (11:24)
[2018-08-31] MEDS: ALBUTEROL SO4 2.5/IPRATROPIUM 0.5 INH SOL 3 ML VIAL.NEB. NEB SCH ×3 (11:25→19:30)
[2018-08-31] MEDS: CEFTRIAXONE 1 GM in DEXTROSE 5%-WATER - 50 ML IVPB SCH (11:41)
[2018-08-31 11:55] LABS: HEMATOCRIT 29.1 % (32.4-45.2); HEMOGLOBIN 9.9 GM/dL (10.7-15.3); MCH 35.2 pg (25.7-33.7); MCHC 34.1 g/dl (32.0-36.0); MEAN CELL VOLUME 103.2 fl (80-96); PLATELET COUNT 144 K/MM3 (134-434); RBC 2.82 M/mm3 (3.60-5.2); RDW 15.3 % (11.6-15.6)
[2018-08-31] MEDS: LORazepam 2 MG/ML SDV VIAL IVPUSH PRN ×2 (14:19→23:18)
--- NOTE | 2018-08-31 15:01 | PN ---
Progress Note, Physician History of Present Illness: LETHARGIC MILLDLY CONFUSED OFFERS NO COMPLAINTS BREATHING NON-LABORED AT REST ON NASAL CANNULA TEMPS DOWN AFEBRILE BC (-) SPUTUM C/S YLO (CONTAMINANT) LEGIONELLA AG (-) - Current Medication List Current Medications: Active Medications Acetaminophen (Tylenol Oral Solution -) 650 mg PO Q6H PRN PRN Reason: FEVER Albuterol/Ipratropium (Duoneb -) 1 amp NEB RQID [facility] Aspirin (Asa -) 81 mg PO DAILY [facility] Last Admin: 08/31/18 09:53 Dose: 81 mg Atenolol (Tenormin -) 50 mg PO DAILY [facility] Last Admin: 08/31/18 11:41 Dose: 50 mg Chlorhexidine Gluconate (Hibiclens For Decolonization -) 1 applic TP HS [facility] Last Admin: 08/30/18 21:08 Dose: Not Given Fenofibric Acid (Trilipix -) 135 mg PO DAILY [facility] Last Admin: 08/31/18 09:52 Dose: 135 mg Azithromycin (Zithromax 500mg Ivpb (Pre-Docked)) 500 mg in 250 mls @ 250 mls/ hr IVPB DAILY [facility] Last Admin: 08/31/18 09:53 Dose: 250 mls/hr Sodium Chloride (Normal Saline -) 1,000 mls @ 42 mls/hr IV [facility] Last Admin: 08/30/18 14:18 Dose: 42 mls/hr Ceftriaxone Sodium 1 gm/ (Dextrose) 50 mls @ 100 mls/hr IVPB DAILY [facility]; Protocol Last Admin: 08/31/18 11:41 Dose: 100 mls/hr Lorazepam (Ativan Injection -) 2 mg IVPUSH Q8H PRN PRN Reason: ANXIETY Last Admin: 08/31/18 14:19 Dose: 2 mg Methylprednisolone Sodium Succinate (Solu-Medrol -) 40 mg IVPUSH Q6H-IV [facility] Last Admin: 08/31/18 14:24 Dose: 40 mg Multivitamins/Minerals/Vitamin C (Tab-A-Vit -) 1 tab PO DAILY [facility] Last Admin: 08/31/18 09:52 Dose: 1 tab Mupirocin (Bactroban Ointment (For Decolonization) -) 1 applic NS BID [facility] Stop: 09/01/18 09:59 Last Admin: 08/31/18 09:53 Dose: Not Given Ramipril (Altace -) 2.5 mg PO DAILY [facility] Last Admin: 08/31/18 09:53 Dose: 2.5 mg Rosuvastatin Calcium (Crestor -) 10 mg PO HS [facility] Last Admin: 08/30/18 21:09 Dose: Not Given - Objective Vital Signs: Vital Signs Temperature 97.8 F 08/31/18 05:27 Pulse Rate 86 08/31/18 05:27 Respiratory Rate 20 08/31/18 05:27 Blood Pressure 142/80 08/31/18 05:27 O2 Sat by Pulse Oximetry (%) 97 08/30/18 22:00 Constitutional: Yes: No Distress Eyes: Yes: Conjunctiva Clear Cardiovascular: Yes: Regular Rate and Rhythm, S1, S2 Respiratory: Yes: Diminished Gastrointestinal: Yes: Normal Bowel Sounds, Soft. No: Tenderness Edema: No Labs: CBC, BMP 08/31/18 06:25 08/30/18 05:30 INR, PTT INR 1.23 (0.83-1.09) H 08/27/18 21:00 Assessment/Plan S/P RESP FAILURE PNEUMONIA THROMBOCYTOPENIA RESOLVED ELEVATED LFTS IMPROVED FEVER- IMPROVED CONTINUE CEFTRIAXONE/ ZITHROMAX
--- NOTE | 2018-08-31 20:42 | PN ---
Physical Exam: SUBJECTIVE: Patient seen and examined at the bedside. still having shortness of breath at rest. on supplemental oxygen. OBJECTIVE: Vital Signs Period Temp Pulse Resp BP Sys/Prakash Pulse Ox Last 24 Hr 97.8 F-98 F 67-86 20-22 142-152/58-80 97 GENERAL: awake, alert, in no acute distress. tolerating supplemental oxygen at 3 liters nasal cannula. HEAD: Normal with no signs of trauma. EYES: PERRL, extraocular movements intact, sclera anicteric, conjunctiva clear. No ptosis. ENT: Ears normal, nares patent, oropharynx clear without exudates, moist mucous membranes. NECK: Trachea midline, full range of motion, supple. LUNGS: mild wheezing anteriorly, diminished breath sounds bilaterally HEART: rrr on monitoring tech ABDOMEN: Soft, nontender, nondistended, normoactive bowel sounds, no guarding EXTREMITIES: no edema, discoloration of bilateral lower extremities. SKIN: Warm, dry, normal turgor, no rashes or lesions noted Laboratory Results - last 24 hr 08/31/18 08/31/18 06:25 06:25 WBC 6.0 RBC 2.82 L Hgb 9.9 L Hct 29.1 L MCV 103.2 H MCH 35.2 H MCHC 34.1 RDW 15.3 Plt Count 144 MPV 9.0 PTT (Actin FS) 25.8 Active Medications Generic Name Dose Route Start Last Admin Trade Name Freq PRN Reason Stop Dose Admin Acetaminophen 650 mg 08/27/18 18:15 Tylenol Oral Solution - PO Q6H PRN FEVER Albuterol/Ipratropium 1 amp 08/31/18 12:00 08/31/18 16:00 Duoneb - NEB 1 amp RQID [facility] Administration Aspirin 81 mg 08/28/18 10:00 08/31/18 09:53 Asa - PO 81 mg DAILY [facility] Administration Atenolol 50 mg 08/31/18 10:00 08/31/18 11:41 Tenormin - PO 50 mg DAILY [facility] Administration Chlorhexidine Gluconate 1 applic 08/27/18 22:00 08/30/18 21:08 Hibiclens For Decolonization - TP Not Given HS [facility] Fenofibric Acid 135 mg 08/28/18 10:00 08/31/18 09:52 Trilipix - PO 135 mg DAILY [facility] Administration Azithromycin 500 mg in 250 mls @ 250 mls/hr 08/27/18 15:30 08/31/18 09:53 Zithromax 500mg Ivpb (Pre-Docked) IVPB 250 mls/hr DAILY [facility] Administration Sodium Chloride 1,000 mls @ 42 mls/hr 08/27/18 21:02 08/30/18 14:18 Normal Saline - IV 42 mls/hr ASDIR [facility] Administration Ceftriaxone Sodium 1 gm/ 50 mls @ 100 mls/hr 08/28/18 10:00 08/31/18 11:41 Dextrose IVPB 100 mls/hr DAILY [facility] Administration Protocol Lorazepam 2 mg 08/29/18 23:07 08/31/18 14:19 Ativan Injection - IVPUSH 2 mg Q8H PRN Administration ANXIETY Methylprednisolone Sodium Succinate 40 mg 08/27/18 12:00 08/31/18 14:24 Solu-Medrol - IVPUSH 40 mg Q6H-IV [facility] Administration Multivitamins/Minerals/Vitamin C 1 tab 08/28/18 10:00 08/31/18 09:52 Tab-A-Vit - PO 1 tab DAILY [facility] Administration Mupirocin 1 applic 08/27/18 10:00 08/31/18 09:53 Bactroban Ointment (For Decolonization) - NS 09/01/18 09:59 Not Given BID [facility] Ramipril 2.5 mg 08/30/18 10:00 08/31/18 09:53 Altace - PO 2.5 mg DAILY [facility] Administration Rosuvastatin Calcium 10 mg 08/27/18 22:00 08/30/18 21:09 Crestor - PO Not Given HS [facility] ASSESSMENT/PLAN: Patient is a 78 year old female with a significant past medical history of HTN, HLD, CAD s/p stent, L breast CA (stage 1) and COPD. [facility] with UTI and hyponatremia on labs. Developed shortness of breath and intubated on admission for airway protection, extubated on 08/28/18. She is now on telemonitorng unit on supplemental oxygen. Pulmonary: Acute hypoxic hypercapnic respiratory failure COPD exacerbation/pneumonia extubated 08/28/18. Currently tolerating 3 liters of nasal cannula. On solumedrol 40mg q 8 hours On ceftrriaxone/azitrhomycin empirically per ID Maintain oxygen saturations above 90% Pulmonary following Card: Elevated troponins, now downtrending heparin drip discontinued. On ASA 81mg, Crestor 10mg, Trilipix 135 qd cardiology following. Hypertension: Started on atenolol and rampiril Renal: Initially hyponatremic, now resolved. fen tolerating PO monitor electrolytes prophy: SCDs PPI. Visit type - Emergency Visit Emergency Visit: Yes ED Registration Date: 08/26/18 Care time: The patient presented to the Emergency Department on the above date and was hospitalized for further evaluation of their emergent condition. - New Patient This patient is new to me today: No - Critical Care Critical Care patient: No - Discharge Referral Referred to [facility] Med P.C.: No
[2018-08-31] MEDS: CHLORHEXIDINE GLUCONATE 4% CLEANSER FOR DECOLONIZATION TP SCH (22:10)
[2018-08-31] MEDS: ROSUVASTATIN CA 10 MG TABLET (FP) PO SCH ×2 (23:13→23:20)
[2018-08-31] MEDS: SODIUM CHLORIDE 1,000 ML IV SCH (23:13)
[2018-09-01] MEDS: methylPREDNISolone NA SUCC 40 MG/1 ML VIAL IVPUSH SCH ×3 (03:23→14:44)
--- NOTE | 2018-09-01 04:49 | HOSP ---
Physical Examination Vital Signs: Vital Signs Temperature 97.6 F 08/31/18 22:00 Pulse Rate 86 08/31/18 22:00 Respiratory Rate 22 H 08/31/18 22:00 Blood Pressure 156/87 08/31/18 22:00 O2 Sat by Pulse Oximetry (%) 97 08/31/18 21:00 Labs: CBC, BMP 08/31/18 06:25 08/30/18 05:30 Hospitalist Encounter Assessment: I was called for patient with respiratory distress. She was tachypneic and found to be removing venti-mask by RN. Scant expiratory wheezing R>L upon chest auscultation. Ordered hand restraints to prevent venti-mask removal. Now saturating 93% but still slightly tachypneic. Ordered ABG and CXR, will follow up. Ordered duonebs prn. Will f/u.
[2018-09-01 05:42] LABS: ARTERIAL BLOOD GAS BASE EXCESS -3.5 meq/l (-2-2); ARTERIAL BLOOD GAS PCO2 42.3 mmHg (35-45); ARTERIAL BLOOD GAS PO2 84.3 mmHg (70-100); ARTERIAL BLOOD GAS pH 7.33 (7.35-7.45)
[2018-09-01 07:06] LABS: HEMATOCRIT 27.4 % (32.4-45.2); HEMOGLOBIN 9.3 GM/dL (10.7-15.3); MCH 34.5 pg (25.7-33.7); MCHC 33.8 g/dl (32.0-36.0); MEAN PLT VOLUME 8.6 fl (7.5-11.1); PLATELET COUNT 141 K/MM3 (134-434); RBC 2.69 M/mm3 (3.60-5.2); RDW 15.3 % (11.6-15.6); WHITE BLOOD COUNT 6.4 K/mm3 (4.0-10.0)
[2018-09-01] MEDS: ALBUTEROL SO4 2.5/IPRATROPIUM 0.5 INH SOL 3 ML VIAL.NEB. NEB SCH ×4 (07:49→19:13)
--- NOTE | 2018-09-01 09:45 | PN ---
Progress Note, Physician Chief Complaint: Events noted. On O2 FM for dyspnea History of Present Illness: Patient was seen and examined. Awake and arousable. Chart was reviewed Denies chest pain Dyspneic - Current Medication List Current Medications: Active Medications Acetaminophen (Tylenol Oral Solution -) 650 mg PO Q6H PRN PRN Reason: FEVER Albuterol/Ipratropium (Duoneb -) 1 amp NEB RQID [facility] Last Admin: 09/01/18 07:49 Dose: 1 amp Albuterol/Ipratropium (Duoneb -) 1 amp NEB Q4H PRN PRN Reason: SHORTNESS OF BREATH Aspirin (Asa -) 81 mg PO DAILY [facility] Last Admin: 08/31/18 09:53 Dose: 81 mg Atenolol (Tenormin -) 50 mg PO DAILY [facility] Last Admin: 08/31/18 11:41 Dose: 50 mg Chlorhexidine Gluconate (Hibiclens For Decolonization -) 1 applic TP HS [facility] Last Admin: 08/31/18 22:10 Dose: Not Given Fenofibric Acid (Trilipix -) 135 mg PO DAILY [facility] Last Admin: 08/31/18 09:52 Dose: 135 mg Azithromycin (Zithromax 500mg Ivpb (Pre-Docked)) 500 mg in 250 mls @ 250 mls/ hr IVPB DAILY [facility] Last Admin: 08/31/18 09:53 Dose: 250 mls/hr Sodium Chloride (Normal Saline -) 1,000 mls @ 42 mls/hr IV ASDIR [facility] Last Admin: 08/31/18 23:13 Dose: Not Given Ceftriaxone Sodium 1 gm/ (Dextrose) 50 mls @ 100 mls/hr IVPB DAILY [facility]; Protocol Last Admin: 08/31/18 11:41 Dose: 100 mls/hr Lorazepam (Ativan Injection -) 2 mg IVPUSH Q8H PRN PRN Reason: ANXIETY Last Admin: 08/31/18 23:18 Dose: 2 mg Methylprednisolone Sodium Succinate (Solu-Medrol -) 40 mg IVPUSH Q6H-IV [facility] Last Admin: 09/01/18 03:23 Dose: 40 mg Multivitamins/Minerals/Vitamin C (Tab-A-Vit -) 1 tab PO DAILY [facility] Last Admin: 08/31/18 09:52 Dose: 1 tab Mupirocin (Bactroban Ointment (For Decolonization) -) 1 applic NS BID [facility] Stop: 09/01/18 09:59 Last Admin: 08/31/18 22:10 Dose: Not Given Ramipril (Altace -) 2.5 mg PO DAILY [facility] Last Admin: 08/31/18 09:53 Dose: 2.5 mg Rosuvastatin Calcium (Crestor -) 10 mg PO HS [facility] Last Admin: 08/31/18 23:20 Dose: Not Given - Objective Vital Signs: Vital Signs Temperature 97.3 F L 09/01/18 06:00 Pulse Rate 92 H 09/01/18 06:00 Respiratory Rate 22 H 09/01/18 06:00 Blood Pressure 149/95 09/01/18 06:00 O2 Sat by Pulse Oximetry (%) 97 08/31/18 21:00 Eyes: Yes: PERRL HENT: Yes: Atraumatic Neck: Yes: Supple Cardiovascular: Yes: Regular Rate and Rhythm, S1, S2 Respiratory: Yes: Diminished Gastrointestinal: Yes: Normal Bowel Sounds, Soft. No: Tenderness Edema: No Labs: CBC, BMP 09/01/18 05:30 08/30/18 05:30 Problem List - Problems (1) Acute respiratory failure Code(s): J96.00 - ACUTE RESPIRATORY FAILURE, UNSP W HYPOXIA OR HYPERCAPNIA (2) COPD exacerbation Code(s): J44.1 - CHRONIC OBSTRUCTIVE PULMONARY DISEASE W (ACUTE) EXACERBATION (3) Breast CA Code(s): C50.919 - MALIGNANT NEOPLASM OF UNSP SITE OF UNSPECIFIED FEMALE BREAST (4) CAD (coronary artery disease) Code(s): I25.10 - ATHSCL HEART DISEASE OF [place] CORONARY ARTERY W/O ANG PCTRS Qualifiers: Coronary Disease-Associated Artery/Lesion type: [place] artery [place] vs. transplanted heart: [place] heart Associated angina: without angina Qualified Code(s): I25.10 - Atherosclerotic heart disease of [place] coronary artery without angina pectoris (5) Generalized weakness Code(s): R53.1 - WEAKNESS (6) HLD (hyperlipidemia) Code(s): E78.5 - HYPERLIPIDEMIA, UNSPECIFIED Qualifiers: Hyperlipidemia type: mixed hyperlipidemia Qualified Code(s): E78.2 - Mixed hyperlipidemia (7) HTN (hypertension) Code(s): I10 - ESSENTIAL (PRIMARY) HYPERTENSION Qualifiers: Hypertension type: essential hypertension Qualified Code(s): I10 - Essential (primary) hypertension (8) Hyponatremia Code(s): E87.1 - HYPO-OSMOLALITY AND HYPONATREMIA (9) UTI (urinary tract infection) Code(s): N39.0 - URINARY TRACT INFECTION, SITE NOT SPECIFIED Qualifiers: Urinary tract infection type: site unspecified Hematuria presence: without hematuria Qualified Code(s): N39.0 - Urinary tract infection, site not specified Assessment/Plan 1. Post acute respiratory failure due to acute exacerbation of COPD +/- PNA 2. CAD s/p PCI/stent 3. HTN - episode of hypotension due to shock now improved 4. Hypercholesterolemia 5. PSVT now in sinus rhythm 6. Generalized weakness and unsteady gait 7. History of left breast CA (Stage 1, RT, 1999) 8. UTI 9. Anemia 10. Hyponatremia, resolved 11. Demand ischemia PLAN: 1. Empiric antibiotic coverage, O2 as needed to maintain saturation, bronchodilator and steroid taper - monitor respiratory status 2. Continue ASA 81 mg QD, Crestor 10 mg QHS and Trilipix 135 mg QD 3. Continue Atenolol 50 mg QD and Ramipril 2.5 mg QD as hemodynamics tolerate 4. Eventual SNF Cnc Specialist: Severiano Bond MD. [facility] Jose Pablo MD
--- NOTE | 2018-09-01 09:57 | PN ---
Physical Exam: SUBJECTIVE: Patient seen and examined at the bedside. overnight notes reviewed. OBJECTIVE: overnight patient became short of breath and was placed on restraints after she attempted to remove the oxygen chest xray with congestive changes, left base. abgs reviewed will place on continuous oxygen monitoring, monitor off the wrist restraints. pulmonary follow up. Vital Signs Period Temp Pulse Resp BP Sys/Prakash Pulse Ox Last 24 Hr 97.3 F-98 F 74-92 22-22 149-156/70-95 97 GENERAL: awake, alert, in no acute distress. tolerating supplemental oxygen at 3 liters nasal cannula. HEAD: Normal with no signs of trauma. EYES: PERRL, extraocular movements intact, sclera anicteric, conjunctiva clear. No ptosis. ENT: Ears normal, nares patent, oropharynx clear without exudates, moist mucous membranes. NECK: Trachea midline, full range of motion, supple. 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 SKIN: Warm, dry, normal turgor, no rashes or lesions noted Laboratory Results - last 24 hr 08/31/18 09/01/18 09/01/18 06:25 05:10 05:30 WBC 6.0 6.4 RBC 2.82 L 2.69 L Hgb 9.9 L 9.3 L Hct 29.1 L 27.4 L MCV 103.2 H 102.0 H MCH 35.2 H 34.5 H MCHC 34.1 33.8 RDW 15.3 15.3 Plt Count 144 141 MPV 9.0 8.6 PTT (Actin FS) Anticoagulation Therapy No Result Required. Puncture Site Right brachial ABG pH 7.33 L ABG pCO2 at Pt Temp 42.3 ABG pO2 at Pt Temp 84.3 D ABG HCO3 21.7 L ABG O2 Sat (Measured) 95.0 ABG O2 Content 14.9 L ABG Base Excess -3.5 L Tim Test No Result Required. O2 Delivery Device Ventimask Oxygen Flow Rate 40% Vent Mode No Result Required. Vent Rate No Result Required. Mechanical Rate No Result Required. Pressure Support Vent No Result Required. 09/01/18 05:30 WBC RBC Hgb Hct MCV MCH MCHC RDW Plt Count MPV PTT (Actin FS) 22.9 L Anticoagulation Therapy Puncture Site ABG pH ABG pCO2 at Pt Temp ABG pO2 at Pt Temp ABG HCO3 ABG O2 Sat (Measured) ABG O2 Content ABG Base Excess Tim Test O2 Delivery Device Oxygen Flow Rate Vent Mode Vent Rate Mechanical Rate Pressure Support Vent Active Medications Generic Name Dose Route Start Last Admin Trade Name Freq PRN Reason Stop Dose Admin Acetaminophen 650 mg 08/27/18 18:15 Tylenol Oral Solution - PO Q6H PRN FEVER Albuterol/Ipratropium 1 amp 08/31/18 12:00 09/01/18 07:49 Duoneb - NEB 1 amp RQID [facility] Administration Albuterol/Ipratropium 1 amp 09/01/18 04:27 Duoneb - NEB Q4H PRN SHORTNESS OF BREATH Aspirin 81 mg 08/28/18 10:00 08/31/18 09:53 Asa - PO 81 mg DAILY [facility] Administration Atenolol 50 mg 08/31/18 10:00 08/31/18 11:41 Tenormin - PO 50 mg DAILY [facility] Administration Chlorhexidine Gluconate 1 applic 08/27/18 22:00 08/31/18 22:10 Hibiclens For Decolonization - TP Not Given HS [facility] Fenofibric Acid 135 mg 08/28/18 10:00 08/31/18 09:52 Trilipix - PO 135 mg DAILY [facility] Administration Azithromycin 500 mg in 250 mls @ 250 mls/hr 08/27/18 15:30 08/31/18 09:53 Zithromax 500mg Ivpb (Pre-Docked) IVPB 250 mls/hr DAILY [facility] Administration Sodium Chloride 1,000 mls @ 42 mls/hr 08/27/18 21:02 08/31/18 23:13 Normal Saline - IV Not Given ASDIR [facility] Ceftriaxone Sodium 1 gm/ 50 mls @ 100 mls/hr 08/28/18 10:00 08/31/18 11:41 Dextrose IVPB 100 mls/hr DAILY [facility] Administration Protocol Lorazepam 2 mg 08/29/18 23:07 08/31/18 23:18 Ativan Injection - IVPUSH 2 mg Q8H PRN Administration ANXIETY Methylprednisolone Sodium Succinate 40 mg 08/27/18 12:00 09/01/18 03:23 Solu-Medrol - IVPUSH 40 mg Q6H-IV [facility] Administration Multivitamins/Minerals/Vitamin C 1 tab 08/28/18 10:00 08/31/18 09:52 Tab-A-Vit - PO 1 tab DAILY [facility] Administration Mupirocin 1 applic 08/27/18 10:00 08/31/18 22:10 Bactroban Ointment (For Decolonization) - NS 09/01/18 09:59 Not Given BID [facility] Ramipril 2.5 mg 08/30/18 10:00 08/31/18 09:53 Altace - PO 2.5 mg DAILY [facility] Administration Rosuvastatin Calcium 10 mg 08/27/18 22:00 08/31/18 23:20 Crestor - PO Not Given HS [facility] ASSESSMENT/PLAN: Patient is a 78 year old female with a significant past medical history of HTN, HLD, CAD s/p stent, L breast CA (stage 1) and COPD. [facility] and hyponatremia on labs. Developed shortness of breath and intubated on admission for airway protection, extubated on 08/28/18. She is now on telemonitorng unit on supplemental oxygen. Pulmonary: Acute hypoxic hypercapnic respiratory failure COPD exacerbation/pneumonia extubated 08/28/18. Currently tolerating 3 liters of nasal cannula alternating with bipap. abg reviewed. On solumedrol 40mg q 8 hours On ceftrriaxone/azitrhomycin empirically per ID for pneumonia Maintain oxygen saturations above 90% Pulmonary following continuous pulse oxygen monitoringg Card: Elevated troponins, now downtrending heparin drip discontinued. On ASA 81mg, Crestor 10mg, Trilipix 135 qd cardiology following. Hypertension: Started on atenolol and rampiril Renal: Initially hyponatremic, now resolved. fen tolerating PO monitor electrolytes prophy: SCDs PPI. Visit type - Emergency Visit Emergency Visit: Yes ED Registration Date: 08/26/18 Care time: The patient presented to the Emergency Department on the above date and was hospitalized for further evaluation of their emergent condition. - New Patient This patient is new to me today: No - Critical Care Critical Care patient: No - Discharge Referral Referred to [facility] No
[2018-09-01] MEDS ORDERED: DEXTROSE 5%-WATER - 50 ML IVPB ONE (10:09)
[2018-09-01] MEDS ORDERED: cefTRIAXone SODIUM 1 GM VIAL ONE (10:09)
[2018-09-01] MEDS: RAMIPRIL 2.5 MG CAPSULE (FP) PO SCH (10:29)
[2018-09-01] MEDS: ASPIRIN 81 MG CHEWABLE TABLETS PO SCH (10:29)
[2018-09-01] MEDS: MULTIVITAMINS (DAILY MVI) TABLET (FP) PO SCH (10:29)
[2018-09-01] MEDS: ATENOLOL 25 MG TABLET (FP) PO SCH (10:30)
[2018-09-01] MEDS: CEFTRIAXONE 1 GM in DEXTROSE 5%-WATER - 50 ML IVPB SCH (10:30)
[2018-09-01] MEDS: AZITHROMYCIN IVPB 500 MG/250 ML BAG IVPB SCH (10:31)
[2018-09-01] MEDS: FENOFIBRIC ACID 135 MG CAP PO SCH (10:31)
[2018-09-01] MEDS: ALBUTEROL SO4 2.5/IPRATROPIUM 0.5 INH SOL 3 ML VIAL.NEB. NEB PRN (18:31)
--- NOTE | 2018-09-01 19:29 | PN ---
Progress Note (short form) - Note Progress Note: Pulm/CCM Pt seen and examined on medicine floor 24Hr: Pt returning to ICU this evening for increase work of breathing, increased wheezing and paradoxical breathing despite nebs/steroids etc. -no new fever, no new cough -only slightly positive fluid balance, does not appear overloaded. -starting on NIVPPV Vital Signs Temp 98.1 F 09/01/18 14:00 Pulse 83 09/01/18 14:00 Resp 22 H 09/01/18 14:00 BP 147/82 09/01/18 14:00 Pulse Ox 96 09/01/18 09:00 Intake & Output 08/31/18 09/01/18 09/01/18 23:59 11:59 23:59 Intake Total 862 Output Total 400 Balance 462 Intake: IV 462 Normal Saline - 1,000 ml 462 @ 42 mls/hr IV ASDIR [facility] Rx#:[id number] IVPB 350 Oral 50 Output: Urine 400 Clark 400 Other: Voiding Method Diaper Diaper Diaper # Unmeasured Voids Void 1 1 Bowel Movement No No Body Mass Index (BMI) 19.9 Current Medications Acetaminophen (Tylenol Oral Solution -) 650 mg PO Q6H PRN PRN Reason: FEVER Albuterol/Ipratropium (Duoneb -) 1 amp NEB RQID [facility] Last Admin: 09/01/18 19:13 Dose: 1 amp Albuterol/Ipratropium (Duoneb -) 1 amp NEB Q4H PRN PRN Reason: SHORTNESS OF BREATH Last Admin: 09/01/18 18:31 Dose: 1 amp Aspirin (Asa -) 81 mg PO DAILY [facility] Last Admin: 09/01/18 10:29 Dose: 81 mg Atenolol (Tenormin -) 50 mg PO DAILY [facility] Last Admin: 09/01/18 10:30 Dose: 50 mg Chlorhexidine Gluconate (Hibiclens For Decolonization -) 1 applic TP HS [facility] Last Admin: 08/31/18 22:10 Dose: Not Given Fenofibric Acid (Trilipix -) 135 mg PO DAILY [facility] Last Admin: 09/01/18 10:31 Dose: 135 mg Azithromycin (Zithromax 500mg Ivpb (Pre-Docked)) 500 mg in 250 mls @ 250 mls/ hr IVPB DAILY [facility] Last Admin: 09/01/18 10:31 Dose: 250 mls/hr Sodium Chloride (Normal Saline -) 1,000 mls @ 42 mls/hr IV ASDIR [facility] Last Admin: 08/31/18 23:13 Dose: Not Given Ceftriaxone Sodium 1 gm/ (Dextrose) 50 mls @ 100 mls/hr IVPB DAILY [facility]; Protocol Last Admin: 09/01/18 10:30 Dose: 100 mls/hr Lorazepam (Ativan Injection -) 2 mg IVPUSH Q8H PRN PRN Reason: ANXIETY Last Admin: 08/31/18 23:18 Dose: 2 mg Methylprednisolone Sodium Succinate (Solu-Medrol -) 40 mg IVPUSH Q6H-IV [facility] Last Admin: 09/01/18 14:44 Dose: 40 mg Multivitamins/Minerals/Vitamin C (Tab-A-Vit -) 1 tab PO DAILY [facility] Last Admin: 09/01/18 10:29 Dose: 1 tab Ramipril (Altace -) 2.5 mg PO DAILY [facility] Last Admin: 09/01/18 10:29 Dose: 2.5 mg Rosuvastatin Calcium (Crestor -) 10 mg PO HS [facility] Last Admin: 08/31/18 23:20 Dose: Not Given CBC, BMP 09/01/18 05:30 08/30/18 05:30 ABG Results ABG pH 7.33 (7.35-7.45) L 09/01/18 05:10 ABG pCO2 at Pt Temp 42.3 mmHg (35-45) 09/01/18 05:10 ABG pO2 at Pt Temp 84.3 mmHg (70-100) D 09/01/18 05:10 ABG HCO3 21.7 meq/L (22-26) L 09/01/18 05:10 ABG O2 Sat (Measured) 95.0 % (90-98.9) 09/01/18 05:10 ABG O2 Content 14.9 % vol (15-22) L 09/01/18 05:10 ABG Base Excess -3.5 meq/l (-2-2) L 09/01/18 05:10 PE: Gen: Moderate distress, paradox breathing HEENT: NCAT, no jvp, neck supple PULM: diffuse wheezes, coarse rhonchi, weak cough CV: tachy, unable to apprec m/r/g ABD: soft, NT, ND EXT: no edema. Neuro: awakens to loud voice, falls asleep midsentence Assessment/Plan Acute Respiratory Failure due to AE of COPD Low clinical suspicion of Pulmonary edema Septic Shock: (?) PNA (?) UTI HTN HLD CAD s/p PCI Left Breast Ca (Stage 1, RT, 1999) Smoker ICU monitoring trial of NIV,abg after 30min, may need intubation again---and possibly tracheostomy O2 as needed to maintain saturation BD TX cont Medrol ABX per ID, will upgrade HCAP coverage with Pip/tania and Vanco if febrile or significant worsening Strict I & O Cardiac Telemetry monitoring [place] ACNP [id number] 35min CCT
[2018-09-01] MEDS ORDERED: HEPARIN NA (PORCINE) 5,000 UNITS/ML 1ML VIAL IVPUSH PRN ×2 (21:45)
[2018-09-01] MEDS ORDERED: ACETAMINOPHEN 650 MG/20.3 ML ORAL SOLUTION (CUPS) PO PRN (21:45)
[2018-09-01 22:11] LABS: ARTERIAL BLD GAS O2 SATURATION 96.3 % (90-98.9); ARTERIAL BLOOD GAS PCO2 40.6 mmHg (35-45); ARTERIAL BLOOD GAS PO2 86.3 mmHg (70-100); ARTERIAL BLOOD GAS pH 7.38 (7.35-7.45)
[2018-09-01 22:12] LABS: ALLENS TEST POSITIVE
[2018-09-01] MEDS: SODIUM CHLORIDE 1,000 ML IV SCH (23:42)
[2018-09-01] MEDS: ROSUVASTATIN CA 10 MG TABLET (FP) PO SCH (23:44)
[2018-09-01] MEDS: CHLORHEXIDINE GLUCONATE 4% CLEANSER FOR DECOLONIZATION TP SCH (23:44)
[2018-09-02] MEDS: methylPREDNISolone NA SUCC 40 MG/1 ML VIAL IVPUSH SCH ×4 (03:44→21:29)
[2018-09-02 06:00] LABS: BASO % 0.1 % (0-2.0); HEMATOCRIT 28.3 % (32.4-45.2); HEMOGLOBIN 9.7 GM/dL (10.7-15.3); LYMPH % 3.6 % (8-40); MCH 34.7 pg (25.7-33.7); MCHC 34.1 g/dl (32.0-36.0); MEAN CELL VOLUME 101.7 fl (80-96); MEAN PLT VOLUME 8.9 fl (7.5-11.1); NEUT % 89.3 % (42.8-82.8); PLATELET COUNT 148 K/MM3 (134-434); RBC 2.79 M/mm3 (3.60-5.2); RDW 14.9 % (11.6-15.6); WHITE BLOOD COUNT 9.1 K/mm3 (4.0-10.0)
[2018-09-02 06:28] LABS: ALBUMIN 2.4 g/dl (3.4-5.0); ALK PHOS 63 U/L (45-117); ANION GAP 4 MMOL/L (8-16); BILIRUBIN,TOTAL 0.8 mg/dL (0.2-1); BLOOD UREA NITROGEN 40 mg/dL (7-18); CHLORIDE 113 mmol/L (98-107); CO2 29 mmol/L (21-32); GLUCOSE,RANDOM 134 mg/dL (74-106); MAGNESIUM 2.1 mg/dL (1.8-2.4); POTASSIUM 4.3 mmol/L (3.5-5.1); SGOT/AST 91 U/L (15-37); SGPT/ALT 91 U/L (13-61); SODIUM 145 mmol/L (136-145)
--- NOTE | 2018-09-02 07:45 | PN ---
Progress Note (short form) - Note Progress Note: Pulm/CCM Pt seen and examined on medicine floor 24Hr: -came back to ICU, required NIV, ABG ok -afebrile, no evidence of new infectious process Vital Signs Temp 98.2 F 09/02/18 00:00 Pulse 75 09/02/18 06:58 Resp 20 09/02/18 06:58 BP 141/83 09/02/18 06:58 Pulse Ox 97 09/02/18 00:02 Intake & Output 09/01/18 09/01/18 09/02/18 11:59 23:59 11:59 Intake Total 862 414 Output Total 400 Balance 462 414 Intake: IV 462 384 Normal Saline - 1,000 ml 462 300 @ 42 mls/hr IV ASDIR [facility] Rx#:[id number] Normal Saline - 1,000 ml 84 @ 42 mls/hr IV ASDIR [facility] Rx#:[id number] IVPB 350 Oral 50 30 Output: Urine 400 Clark 400 Other: Voiding Method Diaper Diaper # Unmeasured Voids Clark 1 Void 1 Bowel Movement No Active Medications Acetaminophen (Tylenol Oral Solution -) 650 mg PO Q6H PRN PRN Reason: FEVER Albuterol/Ipratropium (Duoneb -) 1 amp NEB RQID [facility] Last Admin: 09/01/18 19:13 Dose: 1 amp Albuterol/Ipratropium (Duoneb -) 1 amp NEB Q4H PRN PRN Reason: SHORTNESS OF BREATH Last Admin: 09/01/18 18:31 Dose: 1 amp Aspirin (Asa -) 81 mg PO DAILY [facility] Atenolol (Tenormin -) 50 mg PO DAILY [facility] Chlorhexidine Gluconate (Hibiclens For Decolonization -) 1 applic TP HS [facility] Last Admin: 09/01/18 23:44 Dose: 1 applic Fenofibric Acid (Trilipix -) 135 mg PO DAILY [facility] Heparin Sodium (Porcine) (Heparin -) 1,000 unit IVPUSH PRN PRN PRN Reason: Heparin Heparin Sodium (Porcine) (Heparin -) 5,000 unit IVPUSH PRN PRN PRN Reason: Heparin Azithromycin (Zithromax 500mg Ivpb (Pre-Docked)) 500 mg in 250 mls @ 250 mls/ hr IVPB DAILY [facility] Ceftriaxone Sodium 1 gm/ (Dextrose) 50 mls @ 100 mls/hr IVPB DAILY [facility]; Protocol Sodium Chloride (Normal Saline -) 1,000 mls @ 42 mls/hr IV ASDIR [facility] Last Admin: 09/01/18 23:42 Dose: 42 mls/hr Lorazepam (Ativan Injection -) 2 mg IVPUSH Q8H PRN PRN Reason: ANXIETY Last Admin: 08/31/18 23:18 Dose: 2 mg Methylprednisolone Sodium Succinate (Solu-Medrol -) 40 mg IVPUSH Q6H-IV [facility] Last Admin: 09/02/18 03:44 Dose: 40 mg Multivitamins/Minerals/Vitamin C (Tab-A-Vit -) 1 tab PO DAILY [facility] Ramipril (Altace -) 2.5 mg PO DAILY [facility] Last Admin: 09/01/18 10:29 Dose: 2.5 mg Rosuvastatin Calcium (Crestor -) 10 mg PO HS [facility] Last Admin: 09/01/18 23:44 Dose: Not Given CBC, BMP 09/02/18 05:30 09/02/18 05:30 ABG Results ABG pH 7.38 (7.35-7.45) 09/01/18 22:00 ABG pCO2 at Pt Temp 40.6 mmHg (35-45) 09/01/18 22:00 ABG pO2 at Pt Temp 86.3 mmHg (70-100) 09/01/18 22:00 ABG HCO3 23.5 meq/L (22-26) 09/01/18 22:00 ABG O2 Sat (Measured) 96.3 % (90-98.9) 09/01/18 22:00 ABG O2 Content 12.5 % vol (15-22) L 09/01/18 22:00 ABG Base Excess -1.0 meq/l (-2-2) 09/01/18 22:00 Assessment/Plan Acute Respiratory Failure due to AE of COPD Low clinical suspicion of Pulmonary edema Septic Shock: (?) PNA (?) UTI HTN HLD CAD s/p PCI Left Breast Ca (Stage 1, RT, 1999) Smoker ICU monitoring wean off NIV O2 as needed to maintain saturation BD TX cont Medrol ABX per ID, will upgrade HCAP coverage with Pip/tania and Vanco if febrile or significant worsening Strict I & O back to tele if stable today [place] ACNP [id number] 35min CCT
[2018-09-02] MEDS ORDERED: PT OWN MED DRAWER 7, Y5N ONE ×4 (07:59→20:52)
[2018-09-02] MEDS: ALBUTEROL SO4 2.5/IPRATROPIUM 0.5 INH SOL 3 ML VIAL.NEB. NEB SCH ×4 (08:31→20:05)
[2018-09-02] MEDS ORDERED: cefTRIAXone SODIUM 1 GM VIAL ONE (08:45)
[2018-09-02] MEDS ORDERED: DEXTROSE 5%-WATER - 50 ML IVPB ONE (08:46)
[2018-09-02] MEDS: MULTIVITAMINS (DAILY MVI) TABLET (FP) PO SCH (09:22)
[2018-09-02] MEDS: ATENOLOL 50 MG TABLET (FP) PO SCH (09:22)
[2018-09-02] MEDS: RAMIPRIL 2.5 MG CAPSULE (FP) PO SCH (09:22)
[2018-09-02] MEDS: ASPIRIN 81 MG CHEWABLE TABLETS PO SCH (09:22)
[2018-09-02] MEDS: AZITHROMYCIN IVPB 500 MG/250 ML BAG IVPB SCH (09:22)
[2018-09-02] MEDS: FENOFIBRIC ACID 135 MG CAP PO SCH (09:23)
[2018-09-02] MEDS: CEFTRIAXONE 1 GM in DEXTROSE 5%-WATER - 50 ML IVPB SCH (09:23)
--- NOTE | 2018-09-02 09:52 | PN ---
Progress Note, Physician Chief Complaint: Events noted. Transferred to ICU yesterday Breathing better this am History of Present Illness: Patient was seen and examined. Awake. Chart was reviewed Denies chest pain Dyspneic intermittently but better - Current Medication List Current Medications: Active Medications Acetaminophen (Tylenol Oral Solution -) 650 mg PO Q6H PRN PRN Reason: FEVER Albuterol/Ipratropium (Duoneb -) 1 amp NEB RQID [facility] Last Admin: 09/02/18 08:31 Dose: 1 amp Albuterol/Ipratropium (Duoneb -) 1 amp NEB Q4H PRN PRN Reason: SHORTNESS OF BREATH Last Admin: 09/01/18 18:31 Dose: 1 amp Aspirin (Asa -) 81 mg PO DAILY [facility] Last Admin: 09/02/18 09:22 Dose: 81 mg Atenolol (Tenormin -) 50 mg PO DAILY [facility] Last Admin: 09/02/18 09:22 Dose: 50 mg Chlorhexidine Gluconate (Hibiclens For Decolonization -) 1 applic TP HS [facility] Last Admin: 09/01/18 23:44 Dose: 1 applic Fenofibric Acid (Trilipix -) 135 mg PO DAILY [facility] Last Admin: 09/02/18 09:23 Dose: 135 mg Azithromycin (Zithromax 500mg Ivpb (Pre-Docked)) 500 mg in 250 mls @ 250 mls/ hr IVPB DAILY [facility] Last Admin: 09/02/18 09:22 Dose: 250 mls/hr Ceftriaxone Sodium 1 gm/ (Dextrose) 50 mls @ 100 mls/hr IVPB DAILY [facility]; Protocol Last Admin: 09/02/18 09:23 Dose: 100 mls/hr Sodium Chloride (Normal Saline -) 1,000 mls @ 42 mls/hr IV ASDIR [facility] Last Admin: 09/01/18 23:42 Dose: 42 mls/hr Lorazepam (Ativan Injection -) 2 mg IVPUSH Q8H PRN PRN Reason: ANXIETY Last Admin: 08/31/18 23:18 Dose: 2 mg Methylprednisolone Sodium Succinate (Solu-Medrol -) 40 mg IVPUSH Q6H-IV [facility] Last Admin: 09/02/18 09:23 Dose: 40 mg Multivitamins/Minerals/Vitamin C (Tab-A-Vit -) 1 tab PO DAILY [facility] Last Admin: 09/02/18 09:22 Dose: 1 tab Ramipril (Altace -) 2.5 mg PO DAILY [facility] Last Admin: 09/02/18 09:22 Dose: 2.5 mg Rosuvastatin Calcium (Crestor -) 10 mg PO HS [facility] Last Admin: 09/01/18 23:44 Dose: Not Given - Objective Vital Signs: Vital Signs Temperature 98.2 F 09/02/18 00:00 Pulse Rate 71 09/02/18 08:00 Respiratory Rate 17 09/02/18 08:00 Blood Pressure 168/65 09/02/18 08:00 O2 Sat by Pulse Oximetry (%) 100 09/02/18 08:30 HENT: Yes: Atraumatic Neck: Yes: Supple Cardiovascular: Yes: Regular Rate and Rhythm, S1, S2 Respiratory: Yes: Diminished Gastrointestinal: Yes: Normal Bowel Sounds, Soft. No: Tenderness Edema: No Additional Findings/Remarks: - Review of Systems Constitutional: denies: Chills, Fever Cardiovascular: denies: Chest Pain, Palpitations, (+) Shortness of Breath Respiratory: denies: Cough, Hemoptysis, Orthopnea, PND, (+) SOB, SOB on Exertion Gastrointestinal: denies: Abdominal Pain, Constipation, Diarrhea, Melena, Nausea , Rectal Bleeding, Vomiting Musculoskeletal: denies: Joint Pain Neurological: denies: Dizziness, Headache, Seizure, Syncope Labs: CBC, BMP 09/02/18 05:30 09/02/18 05:30 Problem List - Problems (1) Acute respiratory failure Code(s): J96.00 - ACUTE RESPIRATORY FAILURE, UNSP W HYPOXIA OR HYPERCAPNIA (2) COPD exacerbation Code(s): J44.1 - CHRONIC OBSTRUCTIVE PULMONARY DISEASE W (ACUTE) EXACERBATION (3) Breast CA Code(s): C50.919 - MALIGNANT NEOPLASM OF UNSP SITE OF UNSPECIFIED FEMALE BREAST (4) CAD (coronary artery disease) Code(s): I25.10 - ATHSCL HEART DISEASE OF [place] CORONARY ARTERY W/O ANG PCTRS Qualifiers: Coronary Disease-Associated Artery/Lesion type: [place] artery [place] vs. transplanted heart: [place] heart Associated angina: without angina Qualified Code(s): I25.10 - Atherosclerotic heart disease of [place] coronary artery without angina pectoris (5) Generalized weakness Code(s): R53.1 - WEAKNESS (6) HLD (hyperlipidemia) Code(s): E78.5 - HYPERLIPIDEMIA, UNSPECIFIED Qualifiers: Hyperlipidemia type: mixed hyperlipidemia Qualified Code(s): E78.2 - Mixed hyperlipidemia (7) HTN (hypertension) Code(s): I10 - ESSENTIAL (PRIMARY) HYPERTENSION Qualifiers: Hypertension type: essential hypertension Qualified Code(s): I10 - Essential (primary) hypertension (8) Hyponatremia Code(s): E87.1 - HYPO-OSMOLALITY AND HYPONATREMIA (9) UTI (urinary tract infection) Code(s): N39.0 - URINARY TRACT INFECTION, SITE NOT SPECIFIED Qualifiers: Urinary tract infection type: site unspecified Hematuria presence: without hematuria Qualified Code(s): N39.0 - Urinary tract infection, site not specified Assessment/Plan 1. Post acute respiratory failure due to acute exacerbation of COPD +/- PNA 2. CAD s/p PCI/stent 3. HTN - episode of hypotension due to shock now improved 4. Hypercholesterolemia 5. PSVT now in sinus rhythm 6. Generalized weakness and unsteady gait 7. History of left breast CA (Stage 1, RT, 1999) 8. UTI 9. Anemia 10. Hyponatremia, resolved 11. Demand ischemia PLAN: 1. Empiric antibiotic coverage, O2 as needed to maintain saturation and CPAP, bronchodilator and steroid taper - monitor respiratory status 2. Continue ASA 81 mg QD, Crestor 10 mg QHS and Trilipix 135 mg QD 3. Continue Atenolol 50 mg QD and Ramipril 2.5 mg QD as hemodynamics tolerate Hot Worker: Severiano Bond MD. [facility] Jose Pablo MD
--- NOTE | 2018-09-02 11:16 | PN ---
Progress Note, Physician History of Present Illness: TRANSFERRED TO ICU AFTER RESP DISTRESS LETHARGIC BUT AWAKE OFFERS NO COMPLAINTS BREATHING NON-LABORED AT REST ON VENTIMASK TEMPS DOWN AFEBRILE BC (-) SPUTUM C/S YLO (CONTAMINANT) LEGIONELLA AG (-) - Current Medication List Current Medications: Active Medications Acetaminophen (Tylenol Oral Solution -) 650 mg PO Q6H PRN PRN Reason: FEVER Albuterol/Ipratropium (Duoneb -) 1 amp NEB RQID [facility] Last Admin: 09/02/18 08:31 Dose: 1 amp Albuterol/Ipratropium (Duoneb -) 1 amp NEB Q4H PRN PRN Reason: SHORTNESS OF BREATH Last Admin: 09/01/18 18:31 Dose: 1 amp Aspirin (Asa -) 81 mg PO DAILY [facility] Last Admin: 09/02/18 09:22 Dose: 81 mg Atenolol (Tenormin -) 50 mg PO DAILY [facility] Last Admin: 09/02/18 09:22 Dose: 50 mg Chlorhexidine Gluconate (Hibiclens For Decolonization -) 1 applic TP HS [facility] Last Admin: 09/01/18 23:44 Dose: 1 applic Fenofibric Acid (Trilipix -) 135 mg PO DAILY [facility] Last Admin: 09/02/18 09:23 Dose: 135 mg Azithromycin (Zithromax 500mg Ivpb (Pre-Docked)) 500 mg in 250 mls @ 250 mls/ hr IVPB DAILY [facility] Last Admin: 09/02/18 09:22 Dose: 250 mls/hr Ceftriaxone Sodium 1 gm/ (Dextrose) 50 mls @ 100 mls/hr IVPB DAILY [facility]; Protocol Last Admin: 09/02/18 09:23 Dose: 100 mls/hr Sodium Chloride (Normal Saline -) 1,000 mls @ 42 mls/hr IV ASDIR [facility] Last Admin: 09/01/18 23:42 Dose: 42 mls/hr Lorazepam (Ativan Injection -) 2 mg IVPUSH Q8H PRN PRN Reason: ANXIETY Last Admin: 08/31/18 23:18 Dose: 2 mg Methylprednisolone Sodium Succinate (Solu-Medrol -) 40 mg IVPUSH Q6H-IV [facility] Last Admin: 09/02/18 09:23 Dose: 40 mg Multivitamins/Minerals/Vitamin C (Tab-A-Vit -) 1 tab PO DAILY [facility] Last Admin: 09/02/18 09:22 Dose: 1 tab Ramipril (Altace -) 2.5 mg PO DAILY [facility] Last Admin: 09/02/18 09:22 Dose: 2.5 mg Rosuvastatin Calcium (Crestor -) 10 mg PO HS [facility] Last Admin: 09/01/18 23:44 Dose: Not Given - Objective Vital Signs: Vital Signs Temperature 98.1 F 09/02/18 10:00 Pulse Rate 78 09/02/18 10:00 Respiratory Rate 23 H 09/02/18 10:00 Blood Pressure 145/61 09/02/18 10:00 O2 Sat by Pulse Oximetry (%) 99 09/02/18 09:00 Constitutional: Yes: No Distress Eyes: Yes: Conjunctiva Clear Cardiovascular: Yes: Regular Rate and Rhythm, S1, S2 Respiratory: Yes: Diminished Gastrointestinal: Yes: Normal Bowel Sounds, Soft. No: Tenderness Edema: No Labs: CBC, BMP 09/02/18 05:30 09/02/18 05:30 INR, PTT INR 1.23 (0.83-1.09) H 08/27/18 21:00 Assessment/Plan EXACERBATION COPD S/P RESP FAILURE/ EXTUBATION PNEUMONIA THROMBOCYTOPENIA RESOLVED ELEVATED LFTS IMPROVED FEVER- IMPROVED CONTINUE CEFTRIAXONE/ ZITHROMAX
--- NOTE | 2018-09-02 17:36 | PN ---
Physical Exam: SUBJECTIVE: Patient seen and examined in the icu. Was sent to icu yesterday after she became increasingly short of breath. she was placed on a bipap and now on a venti mask. breathing has improved. OBJECTIVE: Monitor in icu overnight for closer monitoring after she became short of breath despite duonebs, solumedrol and supplemental oxygen Vital Signs Period Temp Pulse Resp BP Sys/Prakash Pulse Ox Last 24 Hr 97.9 F-98.5 F 71-115 17-26 140-168/61-83 96-100 GENERAL: awake, alert. in no acute distress. HEAD: Normal with no signs of trauma. EYES: PERRL, extraocular movements intact, sclera anicteric, conjunctiva clear. No ptosis. ENT: Ears normal, nares patent, oropharynx clear without exudates, moist mucous membranes. NECK: Trachea midline, full range of motion, supple. 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 SKIN: Warm, dry, normal turgor, no rashes or lesions noted Laboratory Results - last 24 hr 09/01/18 09/02/18 09/02/18 22:00 05:30 05:30 WBC 9.1 RBC 2.79 L Hgb 9.7 L Hct 28.3 L MCV 101.7 H MCH 34.7 H MCHC 34.1 RDW 14.9 Plt Count 148 MPV 8.9 Absolute Neuts (auto) 8.2 H Neutrophils % 89.3 H Lymphocytes % 3.6 L D Monocytes % 7.0 D Eosinophils % 0.0 Basophils % 0.1 Nucleated RBC % 0 PTT (Actin FS) 23.8 L Anticoagulation Therapy No Result Required. Puncture Site Right radial ABG pH 7.38 ABG pCO2 at Pt Temp 40.6 ABG pO2 at Pt Temp 86.3 ABG HCO3 23.5 ABG O2 Sat (Measured) 96.3 ABG O2 Content 12.5 L ABG Base Excess -1.0 Tim Test Positive O2 Delivery Device No Result Required. Oxygen Flow Rate 33% Vent Mode No Result Required. Vent Rate 14 Mechanical Rate No Result Required. Pressure Support Vent 10/5 Sodium Potassium Chloride Carbon Dioxide Anion Gap BUN Creatinine Creat Clearance w eGFR Random Glucose Calcium Magnesium Total Bilirubin AST ALT Alkaline Phosphatase Total Protein Albumin 09/02/18 05:30 WBC RBC Hgb Hct MCV MCH MCHC RDW Plt Count MPV Absolute Neuts (auto) Neutrophils % Lymphocytes % Monocytes % Eosinophils % Basophils % Nucleated RBC % PTT (Actin FS) Anticoagulation Therapy Puncture Site ABG pH ABG pCO2 at Pt Temp ABG pO2 at Pt Temp ABG HCO3 ABG O2 Sat (Measured) ABG O2 Content ABG Base Excess Tim Test O2 Delivery Device Oxygen Flow Rate Vent Mode Vent Rate Mechanical Rate Pressure Support Vent Sodium 145 Potassium 4.3 Chloride 113 H Carbon Dioxide 29 Anion Gap 4 L BUN 40 H Creatinine 1.0 Creat Clearance w eGFR 53.91 Random Glucose 134 H Calcium 8.0 L Magnesium 2.1 Total Bilirubin 0.8 AST 91 H ALT 91 H Alkaline Phosphatase 63 Total Protein 5.0 L Albumin 2.4 L Active Medications Generic Name Dose Route Start Last Admin Trade Name Freq PRN Reason Stop Dose Admin Acetaminophen 650 mg 09/01/18 21:45 Tylenol Oral Solution - PO Q6H PRN FEVER Albuterol/Ipratropium 1 amp 08/31/18 12:00 09/02/18 15:51 Duoneb - NEB 1 amp RQID [facility] Administration Albuterol/Ipratropium 1 amp 09/01/18 04:27 09/01/18 18:31 Duoneb - NEB 1 amp Q4H PRN Administration SHORTNESS OF BREATH Aspirin 81 mg 09/02/18 10:00 09/02/18 09:22 Asa - PO 81 mg DAILY [facility] Administration Atenolol 50 mg 09/02/18 10:00 09/02/18 09:22 Tenormin - PO 50 mg DAILY [facility] Administration Chlorhexidine Gluconate 1 applic 09/01/18 22:00 09/01/18 23:44 Hibiclens For Decolonization - TP 1 applic HS [facility] Administration Fenofibric Acid 135 mg 09/02/18 10:00 09/02/18 09:23 Trilipix - PO 135 mg DAILY [facility] Administration Azithromycin 500 mg in 250 mls @ 250 mls/hr 09/02/18 10:00 09/02/18 09:22 Zithromax 500mg Ivpb (Pre-Docked) IVPB 250 mls/hr DAILY [facility] Administration Ceftriaxone Sodium 1 gm/ 50 mls @ 100 mls/hr 09/02/18 10:00 09/02/18 09:23 Dextrose IVPB 100 mls/hr DAILY [facility] Administration Protocol Sodium Chloride 1,000 mls @ 42 mls/hr 09/01/18 21:45 09/01/18 23:42 Normal Saline - IV 42 mls/hr ASDIR [facility] Administration Lorazepam 2 mg 08/29/18 23:07 08/31/18 23:18 Ativan Injection - IVPUSH 2 mg Q8H PRN Administration ANXIETY Methylprednisolone Sodium Succinate 40 mg 09/02/18 03:00 09/02/18 14:09 Solu-Medrol - IVPUSH 40 mg Q6H-IV [facility] Administration Multivitamins/Minerals/Vitamin C 1 tab 09/02/18 10:00 09/02/18 09:22 Tab-A-Vit - PO 1 tab DAILY [facility] Administration Ramipril 2.5 mg 08/30/18 10:00 09/02/18 09:22 Altace - PO 2.5 mg DAILY [facility] Administration Rosuvastatin Calcium 10 mg 09/01/18 22:00 09/01/18 23:44 Crestor - PO Not Given HS [facility] ASSESSMENT/PLAN: Patient is a 78 year old female with a significant past medical history of HTN, HLD, CAD s/p stent, L breast CA (stage 1) and COPD. Initially presented to [facility] with UTI and hyponatremia on labs. Developed shortness of breath and intubated on admission for airway protection, extubated on 08/28/18. She is now on telemonitorng unit on supplemental oxygen. Pulmonary: Acute hypoxic hypercapnic respiratory failure COPD exacerbation/pneumonia extubated 08/28/18. returned to the ICU overnight after she became increasingly short of breath despite duonebs, solumedrol and supplemental oxygen. On solumedrol 40mg q 8 hours On ceftrriaxone/azitrhomycin empirically per ID for pneumonia Maintain oxygen saturations above 90% Pulmonary follow up. continuous pulse oxygen monitoring and noctural bipap. Card: Elevated troponins, now downtrending heparin drip discontinued. On ASA 81mg, Crestor 10mg, Trilipix 135 qd cardiology following. Hypertension: Started on atenolol and rampiril Renal: Initially hyponatremic, now resolved. fen tolerating PO monitor electrolytes prophy: SCDs PPI. Visit type - Emergency Visit Emergency Visit: Yes ED Registration Date: 08/26/18 Care time: The patient presented to the Emergency Department on the above date and was hospitalized for further evaluation of their emergent condition. - New Patient This patient is new to me today: No - Critical Care Critical Care patient: No - Discharge Referral Referred to [facility] No
[2018-09-02] MEDS: LORazepam 2 MG/ML SDV VIAL IVPUSH PRN (18:22)
[2018-09-02] MEDS: ROSUVASTATIN CA 10 MG TABLET (FP) PO SCH (21:30)
[2018-09-02] MEDS: SODIUM CHLORIDE 1,000 ML IV SCH (21:45)
[2018-09-02] MEDS: CHLORHEXIDINE GLUCONATE 4% CLEANSER FOR DECOLONIZATION TP SCH (21:46)
[2018-09-02 22:20] LABS: HEMATOCRIT 27.6 % (32.4-45.2); HEMOGLOBIN 9.5 GM/dL (10.7-15.3); MCH 35.1 pg (25.7-33.7); MCHC 34.4 g/dl (32.0-36.0); MEAN PLT VOLUME 9.2 fl (7.5-11.1); PLATELET COUNT 137 K/MM3 (134-434); RBC 2.71 M/mm3 (3.60-5.2); RDW 15.3 % (11.6-15.6); WHITE BLOOD COUNT 10.4 K/mm3 (4.0-10.0)
[2018-09-03] MEDS: methylPREDNISolone NA SUCC 40 MG/1 ML VIAL IVPUSH SCH ×4 (03:19→21:27)
[2018-09-03] MEDS: LORazepam 2 MG/ML SDV VIAL IVPUSH PRN (03:19)
[2018-09-03] MEDS: ALBUTEROL SO4 2.5/IPRATROPIUM 0.5 INH SOL 3 ML VIAL.NEB. NEB SCH (07:25)
[2018-09-03] MEDS ORDERED: cefTRIAXone SODIUM 1 GM VIAL ONE (07:48)
[2018-09-03] MEDS ORDERED: DEXTROSE 5%-WATER - 50 ML IVPB ONE (07:49)
--- NOTE | 2018-09-03 09:10 | PN ---
Physical Exam: SUBJECTIVE: Patient seen and examined at the bedside. OBJECTIVE: Vital Signs Period Temp Pulse Resp BP Sys/Prakash Pulse Ox Last 24 Hr 97.5 F-98.1 F 45-91 16-25 141-170/60-91 96-100 GENERAL: awake, alert. in no acute distress. HEAD: Normal with no signs of trauma. EYES: PERRL, extraocular movements intact, sclera anicteric, conjunctiva clear. No ptosis. ENT: Ears normal, nares patent, oropharynx clear without exudates, moist mucous membranes. NECK: Trachea midline, full range of motion, supple. 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 SKIN: Warm, dry, normal turgor, no rashes or lesions noted Laboratory Results - last 24 hr 09/02/18 09/02/18 21:45 21:45 WBC 10.4 H RBC 2.71 L Hgb 9.5 L Hct 27.6 L MCV 102.0 H MCH 35.1 H MCHC 34.4 RDW 15.3 Plt Count 137 MPV 9.2 PTT (Actin FS) 25.0 L Active Medications Generic Name Dose Route Start Last Admin Trade Name Freq PRN Reason Stop Dose Admin Acetaminophen 650 mg 09/01/18 21:45 Tylenol Oral Solution - PO Q6H PRN FEVER Albuterol/Ipratropium 1 amp 08/31/18 12:00 09/03/18 07:25 Duoneb - NEB 1 amp RQID [facility] Administration Albuterol/Ipratropium 1 amp 09/01/18 04:27 09/01/18 18:31 Duoneb - NEB 1 amp Q4H PRN Administration SHORTNESS OF BREATH Aspirin 81 mg 09/02/18 10:00 09/02/18 09:22 Asa - PO 81 mg DAILY [facility] Administration Atenolol 50 mg 09/02/18 10:00 09/02/18 09:22 Tenormin - PO 50 mg DAILY [facility] Administration Chlorhexidine Gluconate 1 applic 09/01/18 22:00 09/02/18 21:46 Hibiclens For Decolonization - TP 1 applic HS [facility] Administration Fenofibric Acid 135 mg 09/02/18 10:00 09/02/18 09:23 Trilipix - PO 135 mg DAILY [facility] Administration Azithromycin 500 mg in 250 mls @ 250 mls/hr 09/02/18 10:00 09/02/18 09:22 Zithromax 500mg Ivpb (Pre-Docked) IVPB 250 mls/hr DAILY [facility] Administration Ceftriaxone Sodium 1 gm/ 50 mls @ 100 mls/hr 09/02/18 10:00 09/02/18 09:23 Dextrose IVPB 100 mls/hr DAILY [facility] Administration Protocol Sodium Chloride 1,000 mls @ 42 mls/hr 09/01/18 21:45 09/02/18 21:45 Normal Saline - IV Not Given ASDIR [facility] Lorazepam 2 mg 08/29/18 23:07 09/03/18 03:19 Ativan Injection - IVPUSH 2 mg Q8H PRN Administration ANXIETY Methylprednisolone Sodium Succinate 40 mg 09/02/18 03:00 09/03/18 03:19 Solu-Medrol - IVPUSH 40 mg Q6H-IV [facility] Administration Multivitamins/Minerals/Vitamin C 1 tab 09/02/18 10:00 09/02/18 09:22 Tab-A-Vit - PO 1 tab DAILY [facility] Administration Ramipril 2.5 mg 08/30/18 10:00 09/02/18 09:22 Altace - PO 2.5 mg DAILY [facility] Administration Rosuvastatin Calcium 10 mg 09/01/18 22:00 09/02/18 21:30 Crestor - PO 10 mg HS [facility] Administration ASSESSMENT/PLAN: Patient is a 78 year old female with a significant past medical history of HTN, HLD, CAD s/p stent, L breast CA (stage 1) and COPD. Initially presented to [facility] with UTI and hyponatremia on labs. Developed shortness of breath and intubated on admission for airway protection, extubated on 08/28/18. Hospitalization further complicated when patient had acute shortness of breath despite supplemental oxygen, duonebs and steriods. Pulmonary: Acute hypoxic hypercapnic respiratory failure COPD exacerbation/pneumonia. extubated 08/28/18. returned to the ICU over the weekend after she became increasingly short of breath despite duonebs, solumedrol and supplemental oxygen. She Required NIPPV overnight alternating with venti mask. currently on nasal cannula. On solumedrol 40mg q 8 hours. Maintain oxygen saturations above 90% Continuous pulse oxygen monitoring and noctural bipap. Card: Elevated troponins. heparin drip discontinued. On ASA 81mg, Crestor 10mg, Trilipix 135 qd cardiology following. Hypertension: On atenolol and rampiril Renal: Initially hyponatremic, now resolved. fen tolerating PO monitor electrolytes prophy: SCDs PPI. Visit type - Emergency Visit Emergency Visit: Yes ED Registration Date: 08/26/18 Care time: The patient presented to the Emergency Department on the above date and was hospitalized for further evaluation of their emergent condition. - New Patient This patient is new to me today: No - Critical Care Critical Care patient: Yes Total Critical Care Time (in minutes): 45 Critical Care Statement: The care of this patient involved high complexity decision making to prevent further life threatening deterioration of the patient 's condition and/or to evaluate & treat vital organ system(s) failure or risk of failure. - Discharge Referral Referred to [facility] No
[2018-09-03 09:36] LABS: BASO % 0.1 % (0-2.0); EOS % 0.1 % (0-4.5); HEMATOCRIT 26.4 % (32.4-45.2); HEMOGLOBIN 9.3 GM/dL (10.7-15.3); LYMPH % 1.9 % (8-40); MCH 35.3 pg (25.7-33.7); MCHC 35.2 g/dl (32.0-36.0); MEAN CELL VOLUME 100.4 fl (80-96); MEAN PLT VOLUME 8.9 fl (7.5-11.1); MONO % 2.9 % (3.8-10.2); PLATELET COUNT 135 K/MM3 (134-434); RBC 2.63 M/mm3 (3.60-5.2); RDW 14.7 % (11.6-15.6); WHITE BLOOD COUNT 10.2 K/mm3 (4.0-10.0)
[2018-09-03] MEDS: CEFTRIAXONE 1 GM in DEXTROSE 5%-WATER - 50 ML IVPB SCH (10:05)
[2018-09-03] MEDS: ASPIRIN 81 MG CHEWABLE TABLETS PO SCH (10:06)
[2018-09-03] MEDS: MULTIVITAMINS (DAILY MVI) TABLET (FP) PO SCH (10:06)
[2018-09-03] MEDS: ATENOLOL 50 MG TABLET (FP) PO SCH (10:06)
[2018-09-03] MEDS: RAMIPRIL 2.5 MG CAPSULE (FP) PO SCH (10:06)
[2018-09-03 10:30] LABS: ALBUMIN 2.4 g/dl (3.4-5.0); ALK PHOS 61 U/L (45-117); ANION GAP 7 MMOL/L (8-16); BLOOD UREA NITROGEN 43 mg/dL (7-18); CALCIUM 8.4 mg/dL (8.5-10.1); CHLORIDE 111 mmol/L (98-107); CO2 27 mmol/L (21-32); CREATININE 0.8 mg/dL (0.55-1.3); GLUCOSE,RANDOM 161 mg/dL (74-106); MAGNESIUM 1.8 mg/dL (1.8-2.4); POTASSIUM 4.1 mmol/L (3.5-5.1); SGOT/AST 84 U/L (15-37); SGPT/ALT 86 U/L (13-61); SODIUM 144 mmol/L (136-145); TOT PROT 4.7 g/dl (6.4-8.2)
[2018-09-03] MEDS: AZITHROMYCIN IVPB 500 MG/250 ML BAG IVPB SCH (10:36)
--- NOTE | 2018-09-03 10:49 | PN ---
Progress Note (short form) - Note Progress Note: transferred to ICU for hypoxia now improved remains on IV solumedrol no fevers cxray unchanged Vital Signs Period Temp Pulse Resp BP Sys/Prakash Pulse Ox Last 24 Hr 97.4 F-97.9 F 45-91 16-25 141-170/60-91 96-100 no thrush cor-rrr lungs decreased bs at bases abd soft,nt ext no edema +skin tears CBC, BMP 09/03/18 09:15 09/03/18 09:15 Microbiology 08/27/18 12:10 Blood - Peripheral Venous Blood Culture - Final NO GROWTH AFTER 5 DAYS INCUBATION 08/27/18 12:05 Blood - Peripheral Venous Blood Culture - Final NO GROWTH AFTER 5 DAYS INCUBATION 08/28/18 17:15 Sputum - Endotrachea Suction/Ventilator Gram Stain - Final 08/28/18 17:15 Sputum - Endotrachea Suction/Ventilator Sputum Culture - Final Yeast Like Organism 08/27/18 11:30 Urine - Urine - Catheterized Urine Culture - Final NO GROWTH OBTAINED 08/27/18 11:30 Urine For Antigen Detection Legionella Antigen - Final 08/27/18 11:30 Urine For Antigen Detection Streptococcus pneumoniae Antigen (M - Final cxray small right pleural effusion a/p copd exacerbation s/p resp failure pneumonia day #8 rocephin/zithromax will d/c antiibotics and observe
[2018-09-03] MEDS: FENOFIBRIC ACID 135 MG CAP PO SCH (11:03)
--- NOTE | 2018-09-03 11:12 | PN ---
Progress Note, Physician History of Present Illness: Breathing and sensorium improved. - Current Medication List Current Medications: Active Medications Acetaminophen (Tylenol Oral Solution -) 650 mg PO Q6H PRN PRN Reason: FEVER Albuterol/Ipratropium (Duoneb -) 1 amp NEB RQID [facility] Last Admin: 09/03/18 07:25 Dose: 1 amp Albuterol/Ipratropium (Duoneb -) 1 amp NEB Q4H PRN PRN Reason: SHORTNESS OF BREATH Last Admin: 09/01/18 18:31 Dose: 1 amp Aspirin (Asa -) 81 mg PO DAILY [facility] Last Admin: 09/03/18 10:06 Dose: 81 mg Atenolol (Tenormin -) 50 mg PO DAILY [facility] Last Admin: 09/03/18 10:06 Dose: 50 mg Chlorhexidine Gluconate (Hibiclens For Decolonization -) 1 applic TP HS [facility] Last Admin: 09/02/18 21:46 Dose: 1 applic Fenofibric Acid (Trilipix -) 135 mg PO DAILY [facility] Last Admin: 09/02/18 09:23 Dose: 135 mg Sodium Chloride (Normal Saline -) 1,000 mls @ 42 mls/hr IV ASDIR [facility] Last Admin: 09/02/18 21:45 Dose: Not Given Lorazepam (Ativan Injection -) 2 mg IVPUSH Q8H PRN PRN Reason: ANXIETY Last Admin: 09/03/18 03:19 Dose: 2 mg Methylprednisolone Sodium Succinate (Solu-Medrol -) 40 mg IVPUSH Q6H-IV [facility] Last Admin: 09/03/18 10:05 Dose: 40 mg Multivitamins/Minerals/Vitamin C (Tab-A-Vit -) 1 tab PO DAILY [facility] Last Admin: 09/03/18 10:06 Dose: 1 tab Ramipril (Altace -) 2.5 mg PO DAILY [facility] Last Admin: 09/03/18 10:06 Dose: 2.5 mg Rosuvastatin Calcium (Crestor -) 10 mg PO HS [facility] Last Admin: 09/02/18 21:30 Dose: 10 mg - Objective Vital Signs: Vital Signs Temperature 97.4 F L 09/03/18 10:17 Pulse Rate 68 09/03/18 10:17 Respiratory Rate 20 09/03/18 10:17 Blood Pressure 159/73 09/03/18 10:17 O2 Sat by Pulse Oximetry (%) 100 09/03/18 08:41 Constitutional: Yes: No Distress, Calm, Thin Neck: Yes: Supple Cardiovascular: Yes: Regular Rate and Rhythm Respiratory: Yes: Regular, Diminished, On Nasal O2, SOB Gastrointestinal: Yes: Normal Bowel Sounds, Soft Edema: No Labs: CBC, BMP 09/03/18 09:15 09/03/18 09:15 INR, PTT INR 1.23 (0.83-1.09) H 08/27/18 21:00 - ....Imaging EKG: Report Reviewed (Tele: NSR) Problem List - Problems (1) Demand ischemia Code(s): I24.8 - OTHER FORMS OF ACUTE ISCHEMIC HEART DISEASE (2) Acute respiratory failure Code(s): J96.00 - ACUTE RESPIRATORY FAILURE, UNSP W HYPOXIA OR HYPERCAPNIA (3) CAD (coronary artery disease) Code(s): I25.10 - ATHSCL HEART DISEASE OF [place] CORONARY ARTERY W/O ANG PCTRS Qualifiers: Coronary Disease-Associated Artery/Lesion type: [place] artery [place] vs. transplanted heart: [place] heart Associated angina: without angina Qualified Code(s): I25.10 - Atherosclerotic heart disease of [place] coronary artery without angina pectoris (4) COPD exacerbation Code(s): J44.1 - CHRONIC OBSTRUCTIVE PULMONARY DISEASE W (ACUTE) EXACERBATION (5) HLD (hyperlipidemia) Code(s): E78.5 - HYPERLIPIDEMIA, UNSPECIFIED Qualifiers: Hyperlipidemia type: mixed hyperlipidemia Qualified Code(s): E78.2 - Mixed hyperlipidemia (6) HTN (hypertension) Code(s): I10 - ESSENTIAL (PRIMARY) HYPERTENSION Qualifiers: Hypertension type: essential hypertension Qualified Code(s): I10 - Essential (primary) hypertension (7) PSVT (paroxysmal supraventricular tachycardia) Code(s): I47.1 - SUPRAVENTRICULAR TACHYCARDIA (8) UTI (urinary tract infection) Code(s): N39.0 - URINARY TRACT INFECTION, SITE NOT SPECIFIED Qualifiers: Urinary tract infection type: site unspecified Hematuria presence: without hematuria Qualified Code(s): N39.0 - Urinary tract infection, site not specified Assessment/Plan 08/28/2018 Echo: Low normal LV fxn, normal RV size and fxn, mild AR 1. Post acute hypoxic respiratory failure due to acute exacerbation of COPD +/- PNA 2. CAD s/p PCI/stent 3. HTN - episode of hypotension due to shock now improved 4. Hypercholesterolemia 5. PSVT now in sinus rhythm 6. Generalized weakness and unsteady gait 7. History of left breast CA (Stage 1, RT, 1999) 8. UTI 9. Anemia 10. Hyponatremia, resolved 11. Demand ischemia PLAN: 1. Completed antibiotic coverage per ID, O2 as needed to maintain saturation , BD TX , Medrol taper 2. Continue ASA 81 qd, Crestor 10 qhs, Trilipix 135 qd 3. Continue Atenolol 50 qd and ramipril 2.5 qd as hemodynamics tolerate 4. PT->SNF Licensed Vocational Nurse: Severiano Bond MD. [facility] [place]
[2018-09-03] MEDS ORDERED: ALPRAZolam 0.25 MG TABLET PO PRN (11:32)
--- NOTE | 2018-09-03 11:34 | PN ---
Physical Exam: SUBJECTIVE: Patient seen and examined Patient was seen by me and examined. Patient required NIPPV overnight, but currently not SOB on NC. Patient remains confused and does not know the year. The patient has no other symptomatic complaints. OBJECTIVE: Vital Signs Period Temp Pulse Resp BP Sys/Prakash Pulse Ox Last 24 Hr 97.4 F-97.9 F 45-91 16-25 141-170/60-91 96-100 GENERAL: The patient is awake, alert, and oriented to self and place, but not date, in no acute distress. HEAD: Normal with no signs of trauma. EYES: PERRL, extraocular movements intact, sclera anicteric, conjunctiva clear. No ptosis. ENT: Ears normal, nares patent, oropharynx clear without exudates, moist mucous membranes. NECK: Trachea midline, full range of motion, supple. LUNGS: Clear to auscultation bilaterally, no wheezes, no crackles, no accessory muscle use. Decreased breath sounds in the right lower base HEART: Regular rate and rhythm, S1, S2 without murmur, rub or gallop. ABDOMEN: Soft, nontender, nondistended, normoactive bowel sounds, no guarding, no rebound, no hepatosplenomegaly, no masses. EXTREMITIES: 2+ pulses, warm, well-perfused, no edema. NEUROLOGICAL: Cranial nerves II through XII grossly intact. Normal speech, gait not observed. PSYCH: Normal mood, normal affect. SKIN: Warm, dry, normal turgor, no rashes or lesions noted Laboratory Results - last 24 hr 09/02/18 09/02/18 09/03/18 21:45 21:45 09:15 WBC 10.4 H 10.2 H RBC 2.71 L 2.63 L Hgb 9.5 L 9.3 L Hct 27.6 L 26.4 L MCV 102.0 H 100.4 H MCH 35.1 H 35.3 H MCHC 34.4 35.2 RDW 15.3 14.7 Plt Count 137 135 MPV 9.2 8.9 Absolute Neuts (auto) 9.7 H Neutrophils % 95.0 H Lymphocytes % 1.9 L D Monocytes % 2.9 L Eosinophils % 0.1 D Basophils % 0.1 Nucleated RBC % 0 PTT (Actin FS) 25.0 L Sodium Potassium Chloride Carbon Dioxide Anion Gap BUN Creatinine Creat Clearance w eGFR Random Glucose Calcium Magnesium Total Bilirubin AST ALT Alkaline Phosphatase Total Protein Albumin 09/03/18 09:15 WBC RBC Hgb Hct MCV MCH MCHC RDW Plt Count MPV Absolute Neuts (auto) Neutrophils % Lymphocytes % Monocytes % Eosinophils % Basophils % Nucleated RBC % PTT (Actin FS) Sodium 144 Potassium 4.1 Chloride 111 H Carbon Dioxide 27 Anion Gap 7 L BUN 43 H Creatinine 0.8 Creat Clearance w eGFR > 60 Random Glucose 161 H Calcium 8.4 L Magnesium 1.8 Total Bilirubin 1.0 AST 84 H ALT 86 H Alkaline Phosphatase 61 Total Protein 4.7 L Albumin 2.4 L Active Medications Generic Name Dose Route Start Last Admin Trade Name Freq PRN Reason Stop Dose Admin Acetaminophen 650 mg 09/01/18 21:45 Tylenol Oral Solution - PO Q6H PRN FEVER Albuterol/Ipratropium 1 amp 09/01/18 04:27 09/01/18 18:31 Duoneb - NEB 1 amp Q4H PRN Administration SHORTNESS OF BREATH Alprazolam 0.25 mg 09/03/18 11:32 Xanax - PO Q6H PRN ANXIETY Aspirin 81 mg 09/02/18 10:00 09/03/18 10:06 Asa - PO 81 mg DAILY [facility] Administration Atenolol 50 mg 09/02/18 10:00 09/03/18 10:06 Tenormin - PO 50 mg DAILY [facility] Administration Chlorhexidine Gluconate 1 applic 09/01/18 22:00 09/02/18 21:46 Hibiclens For Decolonization - TP 1 applic HS [facility] Administration Fenofibric Acid 135 mg 09/02/18 10:00 09/02/18 09:23 Trilipix - PO 135 mg DAILY [facility] Administration Sodium Chloride 1,000 mls @ 42 mls/hr 09/01/18 21:45 09/02/18 21:45 Normal Saline - IV Not Given ASDIR [facility] Lorazepam 2 mg 08/29/18 23:07 09/03/18 03:19 Ativan Injection - IVPUSH 2 mg Q8H PRN Administration ANXIETY Methylprednisolone Sodium Succinate 40 mg 09/02/18 03:00 09/03/18 10:05 Solu-Medrol - IVPUSH 40 mg Q6H-IV [facility] Administration Multivitamins/Minerals/Vitamin C 1 tab 09/02/18 10:00 09/03/18 10:06 Tab-A-Vit - PO 1 tab DAILY [facility] Administration Ramipril 2.5 mg 08/30/18 10:00 09/03/18 10:06 Altace - PO 2.5 mg DAILY [facility] Administration Rosuvastatin Calcium 10 mg 09/01/18 22:00 09/02/18 21:30 Crestor - PO 10 mg HS [facility] Administration ASSESSMENT/PLAN: 78 yo F with a hx of HTN, HLD, CAD s/p stent, L breast CA (stage 1, RT, 1999), and COPD presented initially to [place] for lethargy with subsequent UTI and hyponatremia on labs. Overnight, she developed SOB and subsequently intubated followed with pressors start due to persistent hypotension and transferred to [facility] ICU. Acute respiratory failure secondary to acute exacerbation of COPD. Patient has remained extubated and breathing well on NC (needed Bipap last night ). ABG values reassuring and not indicative of acute hypercapnic or hypoxia. CXR shows atelectasis develop in the right lower lobe that is new since this admission. -Continue to monitor respiratory status -Encourage IS -duonebs -NC with O2 as needed to maintain saturation -continue medrol 40 mg q6 -continue ceftriaxone and azithro per ID HTN -restarted on home medications HLD: -on crestor CAD s/p PCI with elevated troponins earlier in admission -Likely a demand ischemia;resolved -Continue cardiac monitoring Breast cancer, Left, s/p radiation treatment in 1999. Dispo; Patient [facility] cardiac monitoring. Visit type - Emergency Visit Emergency Visit: Yes ED Registration Date: 08/26/18 Care time: The patient presented to the Emergency Department on the above date and was hospitalized for further evaluation of their emergent condition. - New Patient This patient is new to me today: No - Critical Care Critical Care patient: Yes Total Critical Care Time (in minutes): 36 Critical Care Statement: The care of this patient involved high complexity decision making to prevent further life threatening deterioration of the patient 's condition and/or to evaluate & treat vital organ system(s) failure or risk of failure. - Discharge Referral Referred to [facility] No
[2018-09-03] MEDS: ALBUTEROL SO4 2.5/IPRATROPIUM 0.5 INH SOL 3 ML VIAL.NEB. NEB PRN ×3 (11:44→22:01)
[2018-09-03] MEDS ORDERED: PT OWN MED DRAWER 7, Y5N ONE ×2 (12:12→21:24)
--- NOTE | 2018-09-03 12:21 | PN ---
Teaching Attending Note Name of Resident: Cipriano Rutledge ATTENDING PHYSICIAN STATEMENT I saw and evaluated the patient. I reviewed the resident's note and discussed the case with the resident. I agree with the resident's findings and plan as documented. SUBJECTIVE: Patient seen and examined in the ICU. Currently on NC O2. Required NIPPV overnight. Awake and alert but confused. Intake & Output 08/31/18 09/01/18 09/02/18 09/03/18 23:59 23:59 23:59 23:59 Intake Total 550 1276 1194 344 Output Total 400 Balance 202 004 5423 344 Weight 107 lb 12.8 oz 108 lb Last Vital Signs Temp Pulse Resp BP Pulse Ox 97.4 F L 68 20 159/73 100 09/03/18 10:17 09/03/18 10:17 09/03/18 10:17 09/03/18 10:17 09/03/18 08:41 Active Medications Acetaminophen (Tylenol Oral Solution -) 650 mg PO Q6H PRN PRN Reason: FEVER Albuterol/Ipratropium (Duoneb -) 1 amp NEB Q4H PRN PRN Reason: SHORTNESS OF BREATH Last Admin: 09/03/18 11:46 Dose: 1 amp Alprazolam (Xanax -) 0.25 mg PO Q6H PRN PRN Reason: ANXIETY Aspirin (Asa -) 81 mg PO DAILY [facility] Last Admin: 09/03/18 10:06 Dose: 81 mg Atenolol (Tenormin -) 50 mg PO DAILY [facility] Last Admin: 09/03/18 10:06 Dose: 50 mg Chlorhexidine Gluconate (Hibiclens For Decolonization -) 1 applic TP HS [facility] Last Admin: 09/02/18 21:46 Dose: 1 applic Fenofibric Acid (Trilipix -) 135 mg PO DAILY [facility] Last Admin: 09/02/18 09:23 Dose: 135 mg Sodium Chloride (Normal Saline -) 1,000 mls @ 42 mls/hr IV ASDIR [facility] Last Admin: 09/02/18 21:45 Dose: Not Given Lorazepam (Ativan Injection -) 2 mg IVPUSH Q8H PRN PRN Reason: ANXIETY Last Admin: 09/03/18 03:19 Dose: 2 mg Methylprednisolone Sodium Succinate (Solu-Medrol -) 40 mg IVPUSH Q6H-IV [facility] Last Admin: 09/03/18 10:05 Dose: 40 mg Multivitamins/Minerals/Vitamin C (Tab-A-Vit -) 1 tab PO DAILY [facility] Last Admin: 09/03/18 10:06 Dose: 1 tab Ramipril (Altace -) 2.5 mg PO DAILY [facility] Last Admin: 09/03/18 10:06 Dose: 2.5 mg Rosuvastatin Calcium (Crestor -) 10 mg PO HS [facility] Last Admin: 09/02/18 21:30 Dose: 10 mg Constitutional: Yes: awake and alert but confused Eyes: Yes: Conjunctiva Clear HENT: Yes: Atraumatic, Normocephalic Neck: Yes: Supple, Trachea Midline Cardiovascular: Yes: Tachycardia, S1, S2. No: JVD Respiratory: Yes: few scattered expiratory wheeze and rhonchi Gastrointestinal: Yes: Normal Bowel Sounds, Soft Edema: No Integumentary: Yes: Skin Tear / bruising Labs: Laboratory Results - last 24 hr 09/02/18 09/02/18 09/03/18 21:45 21:45 09:15 WBC 10.4 H 10.2 H RBC 2.71 L 2.63 L Hgb 9.5 L 9.3 L Hct 27.6 L 26.4 L MCV 102.0 H 100.4 H MCH 35.1 H 35.3 H MCHC 34.4 35.2 RDW 15.3 14.7 Plt Count 137 135 MPV 9.2 8.9 Absolute Neuts (auto) 9.7 H Neutrophils % 95.0 H Lymphocytes % 1.9 L D Monocytes % 2.9 L Eosinophils % 0.1 D Basophils % 0.1 Nucleated RBC % 0 PTT (Actin FS) 25.0 L Sodium Potassium Chloride Carbon Dioxide Anion Gap BUN Creatinine Creat Clearance w eGFR Random Glucose Calcium Magnesium Total Bilirubin AST ALT Alkaline Phosphatase Total Protein Albumin 09/03/18 09:15 WBC RBC Hgb Hct MCV MCH MCHC RDW Plt Count MPV Absolute Neuts (auto) Neutrophils % Lymphocytes % Monocytes % Eosinophils % Basophils % Nucleated RBC % PTT (Actin FS) Sodium 144 Potassium 4.1 Chloride 111 H Carbon Dioxide 27 Anion Gap 7 L BUN 43 H Creatinine 0.8 Creat Clearance w eGFR > 60 Random Glucose 161 H Calcium 8.4 L Magnesium 1.8 Total Bilirubin 1.0 AST 84 H ALT 86 H Alkaline Phosphatase 61 Total Protein 4.7 L Albumin 2.4 L Assessment/Plan Acute Respiratory Failure due to AE of COPD Low clinical suspicion of Pulmonary edema Septic Shock: (?) PNA (?) UTI HTN HLD CAD s/p PCI Left Breast Ca (Stage 1, RT, 1999) Smoker O2 as needed to maintain saturation BD TX Medrol ABX per ID NIPPV as needed I & O Cardiac Telemetry monitoring Dr Macedo
[2018-09-03 12:31] LABS: ANISOCYTOSIS 1+; MACROCYTOSIS 1+; OVALOCYTE 1+; PLATELET ESTIMATE DECREASED
[2018-09-03] MEDS: CHLORHEXIDINE GLUCONATE 4% CLEANSER FOR DECOLONIZATION TP SCH (21:27)
[2018-09-03] MEDS: ROSUVASTATIN CA 10 MG TABLET (FP) PO SCH (21:27)
[2018-09-04] MEDS: methylPREDNISolone NA SUCC 40 MG/1 ML VIAL IVPUSH SCH ×4 (03:09→21:10)
--- NOTE | 2018-09-04 06:44 | PN ---
Progress Note (short form) - Note Progress Note: Chief Complaint: Events noted, notes reviewed, denies any chest pain, dyspnea reported but improved, sinus rhythm is noted History of Present Illness: Seen and examined in the ICU. Events noted, notes reviewed, denies any chest pain, dyspnea reported but improved, sinus rhythm is noted Echocardiography dated 08/28/2018 revealed low normal LV function, normal RV size and function with mild AR - Current Medication List Current Medications: Current Medications Acetaminophen (Tylenol Oral Solution -) 650 mg PO Q6H PRN PRN Reason: FEVER Albuterol/Ipratropium (Duoneb -) 1 amp NEB Q4H PRN PRN Reason: SHORTNESS OF BREATH Last Admin: 09/03/18 22:01 Dose: 1 amp Alprazolam (Xanax -) 0.25 mg PO Q6H PRN PRN Reason: ANXIETY Aspirin (Asa -) 81 mg PO DAILY [facility] Last Admin: 09/03/18 10:06 Dose: 81 mg Atenolol (Tenormin -) 50 mg PO DAILY [facility] Last Admin: 09/03/18 10:06 Dose: 50 mg Chlorhexidine Gluconate (Hibiclens For Decolonization -) 1 applic TP HS [facility] Last Admin: 09/03/18 21:27 Dose: 1 applic Fenofibric Acid (Trilipix -) 135 mg PO DAILY [facility] Last Admin: 09/03/18 11:03 Dose: 135 mg Sodium Chloride (Normal Saline -) 1,000 mls @ 42 mls/hr IV ASDIR [facility] Last Admin: 09/02/18 21:45 Dose: Not Given Lorazepam (Ativan Injection -) 2 mg IVPUSH Q8H PRN PRN Reason: ANXIETY Last Admin: 09/03/18 03:19 Dose: 2 mg Methylprednisolone Sodium Succinate (Solu-Medrol -) 40 mg IVPUSH Q6H-IV [facility] Last Admin: 09/04/18 03:09 Dose: 40 mg Multivitamins/Minerals/Vitamin C (Tab-A-Vit -) 1 tab PO DAILY [facility] Last Admin: 09/03/18 10:06 Dose: 1 tab Ramipril (Altace -) 2.5 mg PO DAILY [facility] Last Admin: 09/03/18 10:06 Dose: 2.5 mg Rosuvastatin Calcium (Crestor -) 10 mg PO HS [facility] Last Admin: 09/03/18 21:27 Dose: 10 mg Review of Systems Cardiovascular: As noted above Respiratory: denies: As noted above Gastrointestinal: denies: Nausea, Vomiting, Diarrhea, Constipation or Abdominal Discomfort Musculoskeletal: No Symptoms Reported Endocrine: No Symptoms Reported - Objective Vital Signs: Last Vital Signs Temp Pulse Resp BP Pulse Ox 98.2 F 54 L 20 153/53 L 100 09/04/18 06:00 09/04/18 06:00 09/04/18 06:00 09/04/18 06:00 09/04/18 00:30 Intake & Output 09/01/18 09/02/18 09/03/18 09/04/18 23:59 23:59 23:59 23:59 Intake Total 1276 1194 1184 460 Output Total 400 Balance 876 1194 1184 460 Weight 107 lb 12.8 oz 108 lb 109 lb Constitutional: No Distress, Calm, Thin Neck: Supple Negative JVD Cardiovascular: S1 S2 Regular Rate and Rhythm Respiratory: Scattered Rhonchi Bilaterally Gastrointestinal: Soft Benign Normal Bowel Sounds Ext: No Edema Labs: ABG Results ABG pH 7.38 (7.35-7.45) 09/01/18 22:00 ABG pCO2 at Pt Temp 40.6 mmHg (35-45) 09/01/18 22:00 ABG pO2 at Pt Temp 86.3 mmHg (70-100) 09/01/18 22:00 ABG HCO3 23.5 meq/L (22-26) 09/01/18 22:00 ABG O2 Sat (Measured) 96.3 % (90-98.9) 09/01/18 22:00 ABG O2 Content 12.5 % vol (15-22) L 09/01/18 22:00 ABG Base Excess -1.0 meq/l (-2-2) 09/01/18 22:00 CBC, BMP 09/04/18 07:10 BMP pending from this AM Hepatic Panel Total Bilirubin 1.0 mg/dL (0.2-1) 09/03/18 09:15 AST 84 U/L (15-37) H 09/03/18 09:15 ALT 86 U/L (13-61) H 09/03/18 09:15 Alkaline Phosphatase 61 U/L (45-117) 09/03/18 09:15 Albumin 2.4 g/dl (3.4-5.0) L 09/03/18 09:15 INR, PTT INR 1.23 (0.83-1.09) H 08/27/18 21:00 Assessment/Plan ASSESSMENT: 1. Post acute hypoxic respiratory failure due to acute exacerbation of COPD +/- pneumonia 2. CAD post PCI/stent angina pectoris with demand ischemic injury 3. Diastolic LV dysfunction with clinical class 0 NYHA classification LV failure 4. PSVT currently in sinus rhythm 5. HTN 6. Hypercholesterolemia 7. History of breast carcinoma 8. Anemia PLAN: 1. Continue antibiotics as per ID service 2. Continue ASA 3. Continue Crestor and Trilipix 3. Continue Atenolol, hemodynamics permitting 5. Continue Ramipril, hemodynamics permitting 6. Steroids and bronchodilators as per the primary team Oh Laguerre MD
[2018-09-04 08:00] LABS: BASO % 0.1 % (0-2.0); HEMATOCRIT 28.9 % (32.4-45.2); HEMOGLOBIN 9.8 GM/dL (10.7-15.3); LYMPH % 1.7 % (8-40); MCH 34.8 pg (25.7-33.7); MEAN CELL VOLUME 102.3 fl (80-96); MEAN PLT VOLUME 9.3 fl (7.5-11.1); MONO % 3.6 % (3.8-10.2); NEUT % 94.6 % (42.8-82.8); PLATELET COUNT 135 K/MM3 (134-434); RBC 2.82 M/mm3 (3.60-5.2); RDW 15.2 % (11.6-15.6); WHITE BLOOD COUNT 11.6 K/mm3 (4.0-10.0)
[2018-09-04 08:33] LABS: ALBUMIN 2.4 g/dl (3.4-5.0); ALK PHOS 63 U/L (45-117); ANION GAP 4 MMOL/L (8-16); BILIRUBIN,TOTAL 0.9 mg/dL (0.2-1); BLOOD UREA NITROGEN 44 mg/dL (7-18); CALCIUM 8.2 mg/dL (8.5-10.1); CHLORIDE 111 mmol/L (98-107); CO2 30 mmol/L (21-32); CREATININE 0.9 mg/dL (0.55-1.3); GLUCOSE,RANDOM 169 mg/dL (74-106); MAGNESIUM 1.9 mg/dL (1.8-2.4); POTASSIUM 4.1 mmol/L (3.5-5.1); SGOT/AST 75 U/L (15-37); SGPT/ALT 92 U/L (13-61); SODIUM 145 mmol/L (136-145); TOT PROT 4.9 g/dl (6.4-8.2)
[2018-09-04] MEDS: SODIUM CHLORIDE 1,000 ML IV SCH ×2 (08:36→22:49)
[2018-09-04] MEDS: ATENOLOL 50 MG TABLET (FP) PO SCH ×2 (09:10→21:10)
[2018-09-04] MEDS: RAMIPRIL 2.5 MG CAPSULE (FP) PO SCH (09:10)
[2018-09-04] MEDS: ASPIRIN 81 MG CHEWABLE TABLETS PO SCH (09:10)
[2018-09-04] MEDS: MULTIVITAMINS (DAILY MVI) TABLET (FP) PO SCH (09:11)
[2018-09-04] MEDS ORDERED: PT OWN MED DRAWER 7, Y5N ONE (09:23)
[2018-09-04] MEDS: FENOFIBRIC ACID 135 MG CAP PO SCH (09:26)
[2018-09-04] MEDS ORDERED: MAGNESIUM SULF 50% (8.12 MEQ/2 ML-1 GM VIAL) IVPB ONE (09:45)
[2018-09-04 10:15] LABS: ANISOCYTOSIS 1+; MACROCYTOSIS 1+; PLATELET ESTIMATE DECREASED; TOXIC GRANULATION 1+
--- NOTE | 2018-09-04 11:44 | PN ---
Teaching Attending Note Name of Resident: Cipriano Rutledge ATTENDING PHYSICIAN STATEMENT I saw and evaluated the patient. I reviewed the resident's note and discussed the case with the resident. I agree with the resident's findings and plan as documented. SUBJECTIVE: Patient seen and examined in the ICU. Currently on VM. No NIPPV overnight. Awake and alert but remains confused. Intake & Output 09/01/18 09/02/18 09/03/18 09/04/18 23:59 23:59 23:59 23:59 Intake Total 1276 1194 1184 460 Output Total 400 Balance 876 1194 1184 460 Weight 107 lb 12.8 oz 108 lb 109 lb Last Vital Signs Temp Pulse Resp BP Pulse Ox 97.3 F L 88 27 H 161/64 96 09/04/18 10:00 09/04/18 10:00 09/04/18 10:00 09/04/18 10:00 09/04/18 09:00 Active Medications Acetaminophen (Tylenol Oral Solution -) 650 mg PO Q6H PRN PRN Reason: FEVER Albuterol/Ipratropium (Duoneb -) 1 amp NEB Q4H PRN PRN Reason: SHORTNESS OF BREATH Last Admin: 09/03/18 22:01 Dose: 1 amp Alprazolam (Xanax -) 0.25 mg PO Q6H PRN PRN Reason: ANXIETY Aspirin (Asa -) 81 mg PO DAILY [facility] Last Admin: 09/04/18 09:10 Dose: 81 mg Atenolol (Tenormin -) 50 mg PO BID [facility] Chlorhexidine Gluconate (Hibiclens For Decolonization -) 1 applic TP HS [facility] Last Admin: 09/03/18 21:27 Dose: 1 applic Fenofibric Acid (Trilipix -) 135 mg PO DAILY [facility] Last Admin: 09/04/18 09:26 Dose: 135 mg Sodium Chloride (Normal Saline -) 1,000 mls @ 42 mls/hr IV ASDIR [facility] Last Admin: 09/04/18 08:36 Dose: 42 mls/hr Lorazepam (Ativan Injection -) 2 mg IVPUSH Q8H PRN PRN Reason: ANXIETY Last Admin: 09/03/18 03:19 Dose: 2 mg Methylprednisolone Sodium Succinate (Solu-Medrol -) 40 mg IVPUSH Q6H-IV [facility] Last Admin: 09/04/18 09:10 Dose: 40 mg Multivitamins/Minerals/Vitamin C (Tab-A-Vit -) 1 tab PO DAILY [facility] Last Admin: 09/04/18 09:11 Dose: 1 tab Ramipril (Altace -) 5 mg PO DAILY [facility] Rosuvastatin Calcium (Crestor -) 10 mg PO HS [facility] Last Admin: 09/03/18 21:27 Dose: 10 mg Constitutional: Yes: awake and alert but confused Eyes: Yes: Conjunctiva Clear HENT: Yes: Atraumatic, Normocephalic Neck: Yes: Supple, Trachea Midline Cardiovascular: Yes: Tachycardia, S1, S2. No: JVD Respiratory: Yes: few scattered expiratory wheeze and rhonchi Gastrointestinal: Yes: Normal Bowel Sounds, Soft Edema: No Integumentary: Yes: Skin Tear / bruising Labs: Laboratory Results - last 24 hr 09/03/18 09/04/18 09/04/18 09:15 07:10 07:48 WBC 11.6 H RBC 2.82 L Hgb 9.8 L Hct 28.9 L MCV 102.3 H MCH 34.8 H MCHC 34.0 RDW 15.2 Plt Count 135 MPV 9.3 Absolute Neuts (auto) 11.0 H Neutrophils % 94.6 H Neutrophils % (Manual) 98.0 H Band Neutrophils % 0.0 Lymphocytes % 1.7 L Lymphocytes % (Manual) 2.0 L D Monocytes % 3.6 L Monocytes % (Manual) 0 L D Eosinophils % 0.0 D Eosinophils % (Manual) 0.0 Basophils % 0.1 Basophils % (Manual) 0.0 Myelocytes % (Man) 0 D Promyelocytes % (Man) 0 Blast Cells % (Manual) 0 Nucleated RBC % 0 Metamyelocytes 0 Hypochromia 0 Platelet Estimate Decreased Polychromasia 0 Poikilocytosis 0 Anisocytosis 1+ Microcytosis 0 Macrocytosis 1+ Ovalocytes 1+ Stomatocytes 1+ Sodium 145 Potassium 4.1 Chloride 111 H Carbon Dioxide 30 Anion Gap 4 L BUN 44 H Creatinine 0.9 Creat Clearance w eGFR > 60 Random Glucose 169 H Calcium 8.2 L Magnesium 1.9 Total Bilirubin 0.9 AST 75 H ALT 92 H Alkaline Phosphatase 63 Total Protein 4.9 L Albumin 2.4 L Assessment/Plan Acute Respiratory Failure due to AE of COPD Low clinical suspicion of Pulmonary edema Septic Shock: (?) PNA (?) UTI HTN HLD CAD s/p PCI Left Breast Ca (Stage 1, RT, 1999) Smoker O2 as needed to maintain saturation BD TX Wean Medrol ABX per ID NIPPV as needed I & O Cardiac Telemetry monitoring Dr Macedo
[2018-09-04] MEDS: ALBUTEROL SO4 2.5/IPRATROPIUM 0.5 INH SOL 3 ML VIAL.NEB. NEB PRN ×2 (16:37→21:10)
--- NOTE | 2018-09-04 17:39 | PN ---
Progress Note, Physician Chief Complaint: 24 HR EVENTS -remains in ICU -Abx d/mell as per ID recs -pt more hypertensive, SBP 160-170s - Current Medication List Current Medications: Active Medications Acetaminophen (Tylenol Oral Solution -) 650 mg PO Q6H PRN PRN Reason: FEVER Albuterol/Ipratropium (Duoneb -) 1 amp NEB Q4H PRN PRN Reason: SHORTNESS OF BREATH Last Admin: 09/04/18 16:37 Dose: 1 amp Alprazolam (Xanax -) 0.25 mg PO Q6H PRN PRN Reason: ANXIETY Aspirin (Asa -) 81 mg PO DAILY [facility] Last Admin: 09/04/18 09:10 Dose: 81 mg Atenolol (Tenormin -) 50 mg PO BID [facility] Atenolol (Tenormin -) 25 mg PO ONCE ONE Stop: 09/04/18 17:34 Chlorhexidine Gluconate (Hibiclens For Decolonization -) 1 applic TP HS [facility] Last Admin: 09/03/18 21:27 Dose: 1 applic Fenofibric Acid (Trilipix -) 135 mg PO DAILY [facility] Last Admin: 09/04/18 09:26 Dose: 135 mg Sodium Chloride (Normal Saline -) 1,000 mls @ 42 mls/hr IV ASDIR [facility] Last Admin: 09/04/18 08:36 Dose: 42 mls/hr Lorazepam (Ativan Injection -) 2 mg IVPUSH Q8H PRN PRN Reason: ANXIETY Last Admin: 09/03/18 03:19 Dose: 2 mg Methylprednisolone Sodium Succinate (Solu-Medrol -) 40 mg IVPUSH Q6H-IV [facility] Last Admin: 09/04/18 15:45 Dose: 40 mg Multivitamins/Minerals/Vitamin C (Tab-A-Vit -) 1 tab PO DAILY [facility] Last Admin: 09/04/18 09:11 Dose: 1 tab Ramipril (Altace -) 5 mg PO DAILY [facility] Rosuvastatin Calcium (Crestor -) 10 mg PO HS [facility] Last Admin: 09/03/18 21:27 Dose: 10 mg - Objective Vital Signs: Vital Signs Temperature 97.3 F L 09/04/18 10:00 Pulse Rate 81 09/04/18 12:00 Respiratory Rate 27 H 09/04/18 12:00 Blood Pressure 166/57 L 09/04/18 12:00 O2 Sat by Pulse Oximetry (%) 96 09/04/18 09:00 Constitutional: Yes: Calm, [place], Cachectic Eyes: Yes: Conjunctiva Clear HENT: Yes: Atraumatic, Normocephalic Neck: Yes: Supple Cardiovascular: Yes: Tachycardia Respiratory: Yes: On Venti-Mask, Rales, Rhonchi Gastrointestinal: Yes: Soft, Hypoactive Bowel Sounds ...Rectal Exam: Yes: Deferred Musculoskeletal: Yes: Joint Stiffness, Muscle Weakness Extremities: Yes: WNL Edema: No Peripheral Pulses WNL: Yes Peripheral Pulses: Left Radial: 2+, Right Radial: 2+ Integumentary: Yes: Other (extensive ecchymosis b/l LEs) Neurological: Yes: Alert, Oriented ...Motor Strength: LUE (4/5 x four extremities), LLE, RUE, RLE Psychiatric: Yes: Alert, Oriented Labs: CBC, BMP 09/04/18 07:10 09/04/18 07:48 INR, PTT INR 1.23 (0.83-1.09) H 08/27/18 21:00 - ....Imaging X-ray: Report Reviewed (CXR 09/04/2018 Right pleural effusion) Problem List - Problems (1) Pleural effusion, right Assessment/Plan: IC Chest PT Code(s): J90 - PLEURAL EFFUSION, NOT ELSEWHERE CLASSIFIED (2) COPD exacerbation Assessment/Plan: solumedrol 40mh q6hrs Duonebs PRN Q4 PRN O2 Code(s): J44.1 - CHRONIC OBSTRUCTIVE PULMONARY DISEASE W (ACUTE) EXACERBATION (3) Generalized weakness Code(s): R53.1 - WEAKNESS (4) HLD (hyperlipidemia) Assessment/Plan: Continue ASA 81 qd, Crestor 10 qhs, Trilipix 135 qd Code(s): E78.5 - HYPERLIPIDEMIA, UNSPECIFIED Qualifiers: Hyperlipidemia type: mixed hyperlipidemia Qualified Code(s): E78.2 - Mixed hyperlipidemia (5) HTN (hypertension) Assessment/Plan: Increase Atenolol to 50mg BID Increase ramipril 5mg daily cardiac diet Code(s): I10 - ESSENTIAL (PRIMARY) HYPERTENSION Qualifiers: Hypertension type: essential hypertension Qualified Code(s): I10 - Essential (primary) hypertension Impression/Plan Impression/Plan: Anxiety: Xanax 0.25mg q6 constant reassurance DISPO: Full code maintain ICU care Visit type - Emergency Visit Emergency Visit: Yes ED Registration Date: 08/26/18 Care time: The patient presented to the Emergency Department on the above date and was hospitalized for further evaluation of their emergent condition. - New Patient This patient is new to me today: Yes Date on this admission: 09/04/18 - Critical Care Critical Care patient: Yes Total Critical Care Time (in minutes): 35 Critical Care Statement: The care of this patient involved high complexity decision making to prevent further life threatening deterioration of the patient 's condition and/or to evaluate & treat vital organ system(s) failure or risk of failure. - Discharge Referral Referred to [facility] Med P.C.: No
[2018-09-04] MEDS ORDERED: ATENOLOL 50 MG TABLET (FP) PO ONE (17:45)
--- NOTE | 2018-09-04 19:11 | PN ---
Physical Exam: SUBJECTIVE: Patient seen and examined Patient was seen and examined by me. Patient has no symptomatic complaints. Resting comfortably on NC 2 Liters. Patient still oriented to place and self only. having coughs this morning OBJECTIVE: Vital Signs Period Temp Pulse Resp BP Sys/Prakash Pulse Ox Last 24 Hr 97.2 F-98.2 F 54-88 20-28 142-180/47-79 91-100 GENERAL: The patient is awake, alert, and oriented to self and place, in no acute distress. HEAD: Normal with no signs of trauma. EYES: PERRL, extraocular movements intact, sclera anicteric, conjunctiva clear. No ptosis. ENT: Ears normal, nares patent, oropharynx clear without exudates, moist mucous membranes. NECK: Trachea midline, full range of motion, supple. LUNGS: Breath sounds equal, clear to auscultation bilaterally, no wheezes, no crackles, no accessory muscle use. HEART: Regular rate and rhythm, S1, S2 without murmur, rub or gallop. ABDOMEN: Soft, nontender, nondistended, normoactive bowel sounds, no guarding, no rebound, no hepatosplenomegaly, no masses. EXTREMITIES: 2+ pulses, warm, well-perfused, no edema. NEUROLOGICAL: Cranial nerves II through XII grossly intact. Normal speech, gait not observed. PSYCH: Normal mood, normal affect. SKIN: Warm, dry, normal turgor, no rashes or lesions noted Laboratory Results - last 24 hr 09/04/18 09/04/18 07:10 07:48 WBC 11.6 H RBC 2.82 L Hgb 9.8 L Hct 28.9 L MCV 102.3 H MCH 34.8 H MCHC 34.0 RDW 15.2 Plt Count 135 MPV 9.3 Absolute Neuts (auto) 11.0 H Neutrophils % 94.6 H Neutrophils % (Manual) 96.0 H Band Neutrophils % 0.0 Lymphocytes % 1.7 L Lymphocytes % (Manual) 1.0 L D Monocytes % 3.6 L Monocytes % (Manual) 3 L D Eosinophils % 0.0 D Eosinophils % (Manual) 0.0 Basophils % 0.1 Basophils % (Manual) 0.0 Myelocytes % (Man) 0 Promyelocytes % (Man) 0 Blast Cells % (Manual) 0 Nucleated RBC % 0 Metamyelocytes 0 Hypochromia 0 Toxic Granulation 1+ Platelet Estimate Decreased Polychromasia 0 Poikilocytosis 0 Anisocytosis 1+ Microcytosis 0 Macrocytosis 1+ Sodium 145 Potassium 4.1 Chloride 111 H Carbon Dioxide 30 Anion Gap 4 L BUN 44 H Creatinine 0.9 Creat Clearance w eGFR > 60 Random Glucose 169 H Calcium 8.2 L Magnesium 1.9 Total Bilirubin 0.9 AST 75 H ALT 92 H Alkaline Phosphatase 63 Total Protein 4.9 L Albumin 2.4 L Active Medications Generic Name Dose Route Start Last Admin Trade Name Freq PRN Reason Stop Dose Admin Acetaminophen 650 mg 09/01/18 21:45 Tylenol Oral Solution - PO Q6H PRN FEVER Albuterol/Ipratropium 1 amp 09/01/18 04:27 09/04/18 16:37 Duoneb - NEB 1 amp Q4H PRN Administration SHORTNESS OF BREATH Alprazolam 0.25 mg 09/03/18 11:32 Xanax - PO Q6H PRN ANXIETY Aspirin 81 mg 09/02/18 10:00 09/04/18 09:10 Asa - PO 81 mg DAILY [facility] Administration Atenolol 50 mg 09/04/18 22:00 Tenormin - PO BID [facility] Chlorhexidine Gluconate 1 applic 09/01/18 22:00 09/03/18 21:27 Hibiclens For Decolonization - TP 1 applic HS [facility] Administration Fenofibric Acid 135 mg 09/02/18 10:00 09/04/18 09:26 Trilipix - PO 135 mg DAILY [facility] Administration Sodium Chloride 1,000 mls @ 42 mls/hr 09/01/18 21:45 09/04/18 08:36 Normal Saline - IV 42 mls/hr ASDIR [facility] Administration Multivitamins/Minerals/Vitamin C 1 tab 09/02/18 10:00 09/04/18 09:11 Tab-A-Vit - PO 1 tab DAILY [facility] Administration Ramipril 5 mg 09/05/18 10:00 Altace - PO DAILY [facility] Rosuvastatin Calcium 10 mg 09/01/18 22:00 09/03/18 21:27 Crestor - PO 10 mg HS [facility] Administration ASSESSMENT/PLAN: 78 yo F with a hx of HTN, HLD, CAD s/p stent, L breast CA (stage 1, RT, 1999), and COPD presented initially to [place] for lethargy with subsequent UTI and hyponatremia on labs. Overnight, she developed SOB and subsequently intubated followed with pressors start due to persistent hypotension and transferred to [facility] ICU. Acute respiratory failure secondary to acute exacerbation of COPD. Patient has remained extubated and breathing well on NC (needed Bipap last night ). ABG values reassuring and not indicative of acute hypercapnic or hypoxia. CXR shows atelectasis develop in the right lower lobe that is new since this admission. -Continue to monitor respiratory status -Encourage IS -duonebs -NC with O2 as needed to maintain saturation -continue medrol 40 mg q6 -continue ceftriaxone and azithro per ID -WBC trending upwards, will repeat CBC possible underlying infection given that she continues to have confusion. could be secondary to steroid regiment. will lower steroids to 40 mg BID. HTN -restarted on home medications HLD: -on crestor CAD s/p PCI with elevated troponins earlier in admission -Likely a demand ischemia;resolved -Continue cardiac monitoring Breast cancer, Left, s/p radiation treatment in 1999. Dispo; Patient to be transferred to [facility] for cardiac monitoring. Visit type - Emergency Visit Emergency Visit: Yes ED Registration Date: 08/26/18 Care time: The patient presented to the Emergency Department on the above date and was hospitalized for further evaluation of their emergent condition. - New Patient This patient is new to me today: No - Critical Care Critical Care patient: Yes Total Critical Care Time (in minutes): 36 Critical Care Statement: The care of this patient involved high complexity decision making to prevent further life threatening deterioration of the patient 's condition and/or to evaluate & treat vital organ system(s) failure or risk of failure. - Discharge Referral Referred to [facility] Med P.C.: No
[2018-09-04] MEDS ORDERED: ATENOLOL 50 MG TABLET (FP) PO SCH (21:00)
[2018-09-04] MEDS: ROSUVASTATIN CA 10 MG TABLET (FP) PO SCH (21:10)
[2018-09-04] MEDS: CHLORHEXIDINE GLUCONATE 4% CLEANSER FOR DECOLONIZATION TP SCH (21:10)
[2018-09-04 21:55] LABS: HEMATOCRIT 28.8 % (32.4-45.2); HEMOGLOBIN 9.8 GM/dL (10.7-15.3); MCH 34.4 pg (25.7-33.7); MCHC 33.9 g/dl (32.0-36.0); MEAN CELL VOLUME 101.6 fl (80-96); MEAN PLT VOLUME 9.3 fl (7.5-11.1); PLATELET COUNT 148 K/MM3 (134-434); RBC 2.83 M/mm3 (3.60-5.2); RDW 15.1 % (11.6-15.6); WHITE BLOOD COUNT 14.1 K/mm3 (4.0-10.0)
[2018-09-05 07:02] LABS: HEMATOCRIT 26.4 % (32.4-45.2); HEMOGLOBIN 8.8 GM/dL (10.7-15.3); MCH 33.9 pg (25.7-33.7); MCHC 33.4 g/dl (32.0-36.0); MEAN CELL VOLUME 101.4 fl (80-96); MEAN PLT VOLUME 9.3 fl (7.5-11.1); PLATELET COUNT 108 K/MM3 (134-434); RDW 15.2 % (11.6-15.6)
[2018-09-05 07:33] LABS: ALBUMIN 2.3 g/dl (3.4-5.0); ALK PHOS 68 U/L (45-117); ANION GAP 3 MMOL/L (8-16); BLOOD UREA NITROGEN 47 mg/dL (7-18); CALCIUM 8.2 mg/dL (8.5-10.1); CHLORIDE 113 mmol/L (98-107); CO2 34 mmol/L (21-32); CREATININE 0.9 mg/dL (0.55-1.3); GLUCOSE,RANDOM 140 mg/dL (74-106); POTASSIUM 4.1 mmol/L (3.5-5.1); SGOT/AST 85 U/L (15-37); SGPT/ALT 105 U/L (13-61); SODIUM 149 mmol/L (136-145); TOT PROT 4.6 g/dl (6.4-8.2)
[2018-09-05] MEDS ORDERED: SODIUM CHLORIDE 1,000 ML IV SCH (07:38)
[2018-09-05] MEDS: ALBUTEROL SO4 2.5/IPRATROPIUM 0.5 INH SOL 3 ML VIAL.NEB. NEB PRN ×2 (08:00→13:13)
[2018-09-05 09:24] LABS: ARTERIAL BLOOD GAS PCO2 50.2 mmHg (35-45)
[2018-09-05] MEDS ORDERED: PT OWN MED DRAWER 7, Y5N ONE ×2 (09:24→21:31)
[2018-09-05 09:25] LABS: ALLENS TEST POSITIVE; ARTERIAL BLD GAS O2 SATURATION 97.3 % (90-98.9); ARTERIAL BLOOD GAS BASE EXCESS 5.4 meq/l (-2-2)
[2018-09-05] MEDS: ATENOLOL 50 MG TABLET (FP) PO SCH (09:31)
[2018-09-05] MEDS: ASPIRIN 81 MG CHEWABLE TABLETS PO SCH (09:32)
[2018-09-05] MEDS: FENOFIBRIC ACID 135 MG CAP PO SCH (09:32)
[2018-09-05] MEDS: MULTIVITAMINS (DAILY MVI) TABLET (FP) PO SCH (09:32)
[2018-09-05] MEDS: methylPREDNISolone NA SUCC 40 MG/1 ML VIAL IVPUSH SCH ×2 (09:33→21:35)
[2018-09-05] MEDS ORDERED: RAMIPRIL 5 MG CAPSULE (FP) PO SCH (10:00)
--- NOTE | 2018-09-05 10:47 | PN ---
Progress Note, Physician History of Present Illness: Breathing and sensorium improved. BP elevated. - Current Medication List Current Medications: Active Medications Acetaminophen (Tylenol Oral Solution -) 650 mg PO Q6H PRN PRN Reason: FEVER Albuterol/Ipratropium (Duoneb -) 1 amp NEB Q4H PRN PRN Reason: SHORTNESS OF BREATH Last Admin: 09/04/18 21:10 Dose: 1 amp Alprazolam (Xanax -) 0.25 mg PO Q6H PRN PRN Reason: ANXIETY Last Admin: 09/04/18 21:10 Dose: 0.25 mg Aspirin (Asa -) 81 mg PO DAILY [facility] Last Admin: 09/05/18 09:32 Dose: 81 mg Atenolol (Tenormin -) 50 mg PO BID [facility] Last Admin: 09/05/18 09:31 Dose: 50 mg Chlorhexidine Gluconate (Hibiclens For Decolonization -) 1 applic [address] [facility] Last Admin: 09/04/18 21:10 Dose: 1 applic Fenofibric Acid (Trilipix -) 135 mg PO DAILY [facility] Last Admin: 09/05/18 09:32 Dose: 135 mg Sodium Chloride (Normal Saline -) 1,000 mls @ 100 mls/hr IV ASDIR [facility] Last Admin: 09/05/18 08:38 Dose: 100 mls/hr Methylprednisolone Sodium Succinate (Solu-Medrol -) 40 mg IVPUSH BID [facility] Last Admin: 09/05/18 09:33 Dose: 40 mg Multivitamins/Minerals/Vitamin C (Tab-A-Vit -) 1 tab PO DAILY [facility] Last Admin: 09/05/18 09:32 Dose: 1 tab Ramipril (Altace -) 5 mg PO DAILY [facility] Last Admin: 09/05/18 09:31 Dose: 5 mg Rosuvastatin Calcium (Crestor -) 10 mg PO HS [facility] Last Admin: 09/04/18 21:10 Dose: 10 mg - Objective Vital Signs: Vital Signs Temperature 97.8 F 09/05/18 10:32 Pulse Rate 107 H 09/05/18 10:32 Respiratory Rate 32 H 09/05/18 10:32 Blood Pressure 174/78 H 09/05/18 10:32 O2 Sat by Pulse Oximetry (%) 97 09/05/18 08:35 Constitutional: Yes: No Distress, Calm, Thin Neck: Yes: Supple Cardiovascular: Yes: Regular Rate and Rhythm Respiratory: Yes: Regular, Diminished, On Nasal O2, SOB Gastrointestinal: Yes: Soft, Hypoactive Bowel Sounds Edema: No Labs: CBC, BMP 09/05/18 05:30 09/05/18 05:30 INR, PTT INR 1.23 (0.83-1.09) H 08/27/18 21:00 - ....Imaging EKG: Report Reviewed (Tele: NSR) Problem List - Problems (1) Demand ischemia Code(s): I24.8 - OTHER FORMS OF ACUTE ISCHEMIC HEART DISEASE (2) Acute respiratory failure Code(s): J96.00 - ACUTE RESPIRATORY FAILURE, UNSP W HYPOXIA OR HYPERCAPNIA (3) CAD (coronary artery disease) Code(s): I25.10 - ATHSCL HEART DISEASE OF [place] CORONARY ARTERY W/O ANG PCTRS Qualifiers: Coronary Disease-Associated Artery/Lesion type: [place] artery [place] vs. transplanted heart: [place] heart Associated angina: without angina Qualified Code(s): I25.10 - Atherosclerotic heart disease of [place] coronary artery without angina pectoris (4) COPD exacerbation Code(s): J44.1 - CHRONIC OBSTRUCTIVE PULMONARY DISEASE W (ACUTE) EXACERBATION (5) HLD (hyperlipidemia) Code(s): E78.5 - HYPERLIPIDEMIA, UNSPECIFIED Qualifiers: Hyperlipidemia type: mixed hyperlipidemia Qualified Code(s): E78.2 - Mixed hyperlipidemia (6) HTN (hypertension) Code(s): I10 - ESSENTIAL (PRIMARY) HYPERTENSION Qualifiers: Hypertension type: essential hypertension Qualified Code(s): I10 - Essential (primary) hypertension (7) PSVT (paroxysmal supraventricular tachycardia) Code(s): I47.1 - SUPRAVENTRICULAR TACHYCARDIA (8) UTI (urinary tract infection) Code(s): N39.0 - URINARY TRACT INFECTION, SITE NOT SPECIFIED Qualifiers: Urinary tract infection type: site unspecified Hematuria presence: without hematuria Qualified Code(s): N39.0 - Urinary tract infection, site not specified Assessment/Plan 08/28/2018 Echo: Low normal LV fxn, normal RV size and fxn, mild AR 1. Post acute hypoxic respiratory failure due to acute exacerbation of COPD +/- pneumonia 2. CAD post PCI/stent angina pectoris with demand ischemic injury 3. Diastolic LV dysfunction with clinical class 0 NYHA classification LV failure 4. PSVT currently in sinus rhythm 5. HTN, BP elevated 6. Hypercholesterolemia 7. History of breast carcinoma 8. Anemia PLAN: 1. Completed antibiotic coverage per ID, O2 as needed to maintain saturation , BD TX , Medrol taper 2. Continue ASA 81 qd, Crestor 10 qhs, Trilipix 135 qd 3. Increased Atenolol 50 bid and ramipril 5 bid as hemodynamics tolerate 4. PT->SNF Digital Marketing Officer: Severiano Bond MD. [facility]
--- NOTE | 2018-09-05 12:34 | PN ---
Teaching Attending Note Name of Resident: Cipriano Rutledge ATTENDING PHYSICIAN STATEMENT I saw and evaluated the patient. I reviewed the resident's note and discussed the case with the resident. I agree with the resident's findings and plan as documented. SUBJECTIVE: Pt seen and examined in the ICU. States breathing better but still visibly tachypneic. OBJECTIVE: Vital Signs Period Temp Pulse Resp BP Sys/Prakash Pulse Ox Last 24 Hr 97.2 F-98.2 F 58-107 18-32 152-186/62-99 80-99 Intake & Output 09/02/18 09/03/18 09/04/18 09/05/18 23:59 23:59 23:59 23:59 Intake Total 1194 1184 1084 554 Balance 1194 1184 1084 554 Weight 48.897 kg 48.988 kg 49.442 kg 48.591 kg Gen: tachypneic at rest Heart: tachycardic, regular Lung: distant breath sounds, scattered rhonchi Abd: soft, nontender Ext: no edema CBC, BMP 09/05/18 05:30 09/05/18 05:30 ABG Results ABG pH 7.40 (7.35-7.45) 09/05/18 08:45 ABG pCO2 at Pt Temp 50.2 mmHg (35-45) H D 09/05/18 08:45 ABG pO2 at Pt Temp 103.0 mmHg (70-100) H 09/05/18 08:45 ABG HCO3 30.5 meq/L (22-26) H 09/05/18 08:45 ABG O2 Sat (Measured) 97.3 % (90-98.9) 09/05/18 08:45 ABG O2 Content 12.1 % vol (15-22) L 09/05/18 08:45 ABG Base Excess 5.4 meq/l (-2-2) H 09/05/18 08:45 Active Medications Acetaminophen (Tylenol Oral Solution -) 650 mg PO Q6H PRN PRN Reason: FEVER Albuterol/Ipratropium (Duoneb -) 1 amp NEB Q4H PRN PRN Reason: SHORTNESS OF BREATH Last Admin: 09/04/18 21:10 Dose: 1 amp Alprazolam (Xanax -) 0.25 mg PO Q6H PRN PRN Reason: ANXIETY Last Admin: 09/04/18 21:10 Dose: 0.25 mg Aspirin (Asa -) 81 mg PO DAILY [facility] Last Admin: 09/05/18 09:32 Dose: 81 mg Chlorhexidine Gluconate (Hibiclens For Decolonization -) 1 applic TP HS [facility] Last Admin: 09/04/18 21:10 Dose: 1 applic Fenofibric Acid (Trilipix -) 135 mg PO DAILY [facility] Last Admin: 09/05/18 09:32 Dose: 135 mg Sodium Chloride (Normal Saline -) 1,000 mls @ 100 mls/hr IV ASDIR [facility] Last Admin: 09/05/18 08:38 Dose: 100 mls/hr Methylprednisolone Sodium Succinate (Solu-Medrol -) 40 mg IVPUSH BID [facility] Last Admin: 09/05/18 09:33 Dose: 40 mg Multivitamins/Minerals/Vitamin C (Tab-A-Vit -) 1 tab PO DAILY [facility] Last Admin: 09/05/18 09:32 Dose: 1 tab Nebivolol (Bystolic -) 5 mg PO DAILY [facility] Ramipril (Altace -) 5 mg PO BID [facility] Rosuvastatin Calcium (Crestor -) 10 mg PO HS [facility] Last Admin: 09/04/18 21:10 Dose: 10 mg ASSESSMENT AND PLAN: Acute Hypoxic and Hypercapneic Respiratory Failure Acute COPD Exacerbation Pneumonia LV Diastolic Dysfunction PSVT HTN Hyperlipidemia h/o Breast Ca - continue antibiotics - continue medrol - inhaled bronchodilators standing and PRN - BiPAP as needed to assist in work of breathing - O2 to keep Spo2 >90% - change atenolol to bystolic - PO as tolerated - d/c IVF - DVT/GI prophylaxis - pulse oximetry monitoring critical care time spent in reviewing chart, evaluating patient and formulating plan 35 min
--- NOTE | 2018-09-05 13:16 | PN ---
Physical Exam: SUBJECTIVE: Patient seen and examined OBJECTIVE: Vital Signs Period Temp Pulse Resp BP Sys/Prakash Pulse Ox Last 24 Hr 97.2 F-98.2 F 58-107 18-36 152-186/61-99 80-99 GENERAL: The patient is awake, alert, and fully oriented, in no acute distress. HEAD: Normal with no signs of trauma. EYES: PERRL, extraocular movements intact, sclera anicteric, conjunctiva clear. No ptosis. ENT: Ears normal, nares patent, oropharynx clear without exudates, moist mucous membranes. NECK: Trachea midline, full range of motion, supple. LUNGS: Breath sounds equal, clear to auscultation bilaterally, no wheezes, no crackles, no accessory muscle use. HEART: Regular rate and rhythm, S1, S2 without murmur, rub or gallop. ABDOMEN: Soft, nontender, nondistended, normoactive bowel sounds, no guarding, no rebound, no hepatosplenomegaly, no masses. EXTREMITIES: 2+ pulses, warm, well-perfused, no edema. NEUROLOGICAL: Cranial nerves II through XII grossly intact. Normal speech, gait not observed. PSYCH: Normal mood, normal affect. SKIN: Warm, dry, normal turgor, no rashes or lesions noted Laboratory Results - last 24 hr 09/04/18 09/04/18 09/05/18 21:37 21:37 05:30 WBC 14.1 H 13.0 H RBC 2.83 L 2.60 L Hgb 9.8 L 8.8 L Hct 28.8 L 26.4 L MCV 101.6 H 101.4 H MCH 34.4 H 33.9 H MCHC 33.9 33.4 RDW 15.1 15.2 Plt Count 148 108 L D MPV 9.3 9.3 PTT (Actin FS) 25.3 Anticoagulation Therapy Puncture Site ABG pH ABG pCO2 at Pt Temp ABG pO2 at Pt Temp ABG HCO3 ABG O2 Sat (Measured) ABG O2 Content ABG Base Excess Tim Test O2 Delivery Device Oxygen Flow Rate Vent Mode Vent Rate Mechanical Rate Pressure Support Vent Sodium Potassium Chloride Carbon Dioxide Anion Gap BUN Creatinine Creat Clearance w eGFR Random Glucose Calcium Total Bilirubin AST ALT Alkaline Phosphatase Total Protein Albumin 09/05/18 09/05/18 05:30 08:45 WBC RBC Hgb Hct MCV MCH MCHC RDW Plt Count MPV PTT (Actin FS) Anticoagulation Therapy No Result Required. Puncture Site Right radial ABG pH 7.40 ABG pCO2 at Pt Temp 50.2 H D ABG pO2 at Pt Temp 103.0 H ABG HCO3 30.5 H ABG O2 Sat (Measured) 97.3 ABG O2 Content 12.1 L ABG Base Excess 5.4 H Tim Test Positive O2 Delivery Device No Result Required. Oxygen Flow Rate Yes Vent Mode No Result Required. Vent Rate No Result Required. Mechanical Rate No Result Required. Pressure Support Vent No Result Required. Sodium 149 H Potassium 4.1 Chloride 113 H Carbon Dioxide 34 H Anion Gap 3 L BUN 47 H Creatinine 0.9 Creat Clearance w eGFR > 60 Random Glucose 140 H Calcium 8.2 L Total Bilirubin 1.0 AST 85 H ALT 105 H Alkaline Phosphatase 68 Total Protein 4.6 L Albumin 2.3 L Active Medications Generic Name Dose Route Start Last Admin Trade Name Freq PRN Reason Stop Dose Admin Acetaminophen 650 mg 09/01/18 21:45 Tylenol Oral Solution - PO Q6H PRN FEVER Albuterol/Ipratropium 1 amp 09/01/18 04:27 09/04/18 21:10 Duoneb - NEB 1 amp Q4H PRN Administration SHORTNESS OF BREATH Alprazolam 0.25 mg 09/03/18 11:32 09/04/18 21:10 Xanax - PO 0.25 mg Q6H PRN Administration ANXIETY Aspirin 81 mg 09/02/18 10:00 09/05/18 09:32 Asa - PO 81 mg DAILY [facility] Administration Chlorhexidine Gluconate 1 applic 09/01/18 22:00 09/04/18 21:10 Hibiclens For Decolonization - TP 1 applic HS [facility] Administration Fenofibric Acid 135 mg 09/02/18 10:00 09/05/18 09:32 Trilipix - PO 135 mg DAILY [facility] Administration Sodium Chloride 1,000 mls @ 100 mls/hr 09/05/18 07:38 09/05/18 08:38 Normal Saline - IV 100 mls/hr ASDIR [facility] Administration Methylprednisolone Sodium Succinate 40 mg 09/04/18 22:00 09/05/18 09:33 Solu-Medrol - IVPUSH 40 mg BID [facility] Administration Multivitamins/Minerals/Vitamin C 1 tab 09/02/18 10:00 09/05/18 09:32 Tab-A-Vit - PO 1 tab DAILY [facility] Administration Nebivolol 5 mg 09/06/18 10:00 Bystolic - PO DAILY [facility] Ramipril 5 mg 09/05/18 22:00 Altace - PO BID [facility] Rosuvastatin Calcium 10 mg 09/01/18 22:00 09/04/18 21:10 Crestor - PO 10 mg HS [facility] Administration ASSESSMENT/PLAN: 78 yo F with a hx of HTN, HLD, CAD s/p stent, L breast CA (stage 1, RT, 1999), and COPD presented initially to [place] for lethargy with subsequent UTI and hyponatremia on labs. Overnight, she developed SOB and subsequently intubated followed with pressors start due to persistent hypotension and transferred to [facility] ICU. Acute respiratory failure secondary to acute exacerbation of COPD. Patient has remained extubated and breathing well on NC (needed Bipap last night ). ABG values reassuring and not indicative of acute hypercapnic or hypoxia. CXR shows atelectasis develop in the right lower lobe that is new since this admission. -Continue to monitor respiratory status -Encourage IS -duonebs -NC with O2 as needed to maintain saturation -continue medrol 40 mg q6 -continue ceftriaxone and azithro per ID -WBC trending upwards, will repeat CBC possible underlying infection given that she continues to have confusion. could be secondary to steroid regiment. will lower steroids to 40 mg BID. HTN -restarted on home medications HLD: -on crestor CAD s/p PCI with elevated troponins earlier in admission -Likely a demand ischemia;resolved -Continue cardiac monitoring Breast cancer, Left, s/p radiation treatment in 1999. Dispo; Patient to be transferred to [facility] for cardiac monitoring.
--- NOTE | 2018-09-05 16:33 | PN ---
Progress Note, Physician Chief Complaint: 24 HR EVENTS - pt remains hypertensive despite increase in labetalol to 50mg BID and ramipril 5mg -now on restraints for confusion overnight, resulting in her removal of medical devices. -IVF d/mell due to elevated BP - Current Medication List Current Medications: Active Medications Acetaminophen (Tylenol Oral Solution -) 650 mg PO Q6H PRN PRN Reason: FEVER Albuterol/Ipratropium (Duoneb -) 1 amp NEB Q4H PRN PRN Reason: SHORTNESS OF BREATH Last Admin: 09/05/18 13:13 Dose: 1 amp Alprazolam (Xanax -) 0.25 mg PO Q6H PRN PRN Reason: ANXIETY Last Admin: 09/04/18 21:10 Dose: 0.25 mg Amlodipine Besylate (Norvasc -) 5 mg PO DAILY [facility] Aspirin (Asa -) 81 mg PO DAILY [facility] Last Admin: 09/05/18 09:32 Dose: 81 mg Chlorhexidine Gluconate (Hibiclens For Decolonization -) 1 applic TP HS [facility] Last Admin: 09/04/18 21:10 Dose: 1 applic Fenofibric Acid (Trilipix -) 135 mg PO DAILY [facility] Last Admin: 09/05/18 09:32 Dose: 135 mg Sodium Chloride (Normal Saline -) 1,000 mls @ 100 mls/hr IV ASDIR [facility] Last Admin: 09/05/18 08:38 Dose: 100 mls/hr Methylprednisolone Sodium Succinate (Solu-Medrol -) 40 mg IVPUSH BID [facility] Last Admin: 09/05/18 09:33 Dose: 40 mg Multivitamins/Minerals/Vitamin C (Tab-A-Vit -) 1 tab PO DAILY [facility] Last Admin: 09/05/18 09:32 Dose: 1 tab Nebivolol (Bystolic -) 5 mg PO DAILY [facility] Ramipril (Altace -) 5 mg PO BID [facility] Rosuvastatin Calcium (Crestor -) 10 mg PO HS [facility] Last Admin: 09/04/18 21:10 Dose: 10 mg - Objective Vital Signs: Vital Signs Temperature 98.0 F 09/05/18 14:10 Pulse Rate 79 09/05/18 14:10 Respiratory Rate 21 H 09/05/18 14:10 Blood Pressure 148/49 L 09/05/18 14:10 O2 Sat by Pulse Oximetry (%) 97 09/05/18 08:35 Constitutional: Yes: Cachectic, Pallor Eyes: Yes: Conjunctiva Clear, PERRL HENT: Yes: Atraumatic, Normocephalic Neck: Yes: Supple Cardiovascular: Yes: Regular Rate and Rhythm Respiratory: Yes: Regular, Accessory Muscle Use, Rhonchi, Wheezes Gastrointestinal: Yes: Normal Bowel Sounds, Soft ...Rectal Exam: Yes: Deferred Musculoskeletal: Yes: Joint Stiffness, Muscle Weakness Edema: No Peripheral Pulses: Left Radial: 2+, Right Radial: 2+ Integumentary: Yes: Venous Stasis Changes Neurological: Yes: Alert, Oriented, Weakness ...Motor Strength: LLE (decreased), RLE Psychiatric: Yes: Alert, Oriented Labs: CBC, BMP 09/05/18 05:30 09/05/18 05:30 INR, PTT INR 1.23 (0.83-1.09) H 08/27/18 21:00 - ....Imaging Chest X-ray: Report Reviewed (CXR 09/05/2018 Impression: A single View of the chest reveals bilateral effusions with increased bibasilar markings compatible with early infiltrate atelectasis. There are left chest wall clips. There is a prominent mediastinum. There are degenerative changes . Read by Dr. Neil Johnson) Problem List - Problems (1) Pleural effusion, right Assessment/Plan: IC Chest Xray with worsening atelectasis Chest PT d/c IVF, lasix 40mg IVP tonight encourage PO intake Code(s): J90 - PLEURAL EFFUSION, NOT ELSEWHERE CLASSIFIED (2) COPD exacerbation Assessment/Plan: taper solumedrol to 40mg q12hrs Duonebs PRN Q4 PRN O2 BIPAP qhs PRN ABG Code(s): J44.1 - CHRONIC OBSTRUCTIVE PULMONARY DISEASE W (ACUTE) EXACERBATION (3) HLD (hyperlipidemia) Assessment/Plan: Continue ASA 81 qd, Crestor 10 qhs, Trilipix 135 qd Code(s): E78.5 - HYPERLIPIDEMIA, UNSPECIFIED Qualifiers: Hyperlipidemia type: mixed hyperlipidemia Qualified Code(s): E78.2 - Mixed hyperlipidemia (4) HTN (hypertension) Assessment/Plan: Atenolol changed to bystolic by ICU team Increase ramipril 5mg twice daily Start norvasc 5mg q6pm cardiac diet Code(s): I10 - ESSENTIAL (PRIMARY) HYPERTENSION Qualifiers: Hypertension type: essential hypertension Qualified Code(s): I10 - Essential (primary) hypertension Impression/Plan Impression/Plan: Anxiety -Xanax PRN DISPO: full code Visit type - Emergency Visit Emergency Visit: Yes ED Registration Date: 08/26/18 Care time: The patient presented to the Emergency Department on the above date and was hospitalized for further evaluation of their emergent condition. - New Patient This patient is new to me today: No - Critical Care Critical Care patient: Yes Total Critical Care Time (in minutes): 45 Critical Care Statement: The care of this patient involved high complexity decision making to prevent further life threatening deterioration of the patient 's condition and/or to evaluate & treat vital organ system(s) failure or risk of failure.
[2018-09-05] MEDS: amLODIPine BESYLATE 5 MG TABLET (FP) PO SCH (17:00)
[2018-09-05] MEDS ORDERED: FUROSEMIDE 40 MG/4 ML INJECTABLE VIAL IVPUSH ONE (17:22)
[2018-09-05] MEDS ORDERED: LOSARTAN POTASSIUM 50 MG TABLET (FP) PO ONE (18:53)
[2018-09-05] MEDS: RAMIPRIL 5 MG CAPSULE (FP) PO SCH (21:35)
[2018-09-05] MEDS: CHLORHEXIDINE GLUCONATE 4% CLEANSER FOR DECOLONIZATION TP SCH (21:35)
[2018-09-05] MEDS: ROSUVASTATIN CA 10 MG TABLET (FP) PO SCH (21:50)
[2018-09-05 21:55] LABS: HEMOGLOBIN 10.2 GM/dL (10.7-15.3); MCH 34.5 pg (25.7-33.7); MEAN CELL VOLUME 101.5 fl (80-96); MEAN PLT VOLUME 10.3 fl (7.5-11.1); PLATELET COUNT 159 K/MM3 (134-434); RBC 2.95 M/mm3 (3.60-5.2); WHITE BLOOD COUNT 14.9 K/mm3 (4.0-10.0)
[2018-09-06 06:42] LABS: HEMATOCRIT 26.7 % (32.4-45.2); MCH 34.2 pg (25.7-33.7); MCHC 33.8 g/dl (32.0-36.0); MEAN CELL VOLUME 101.3 fl (80-96); MEAN PLT VOLUME 9.6 fl (7.5-11.1); PLATELET COUNT 102 K/MM3 (134-434); RBC 2.64 M/mm3 (3.60-5.2); WHITE BLOOD COUNT 12.9 K/mm3 (4.0-10.0)
[2018-09-06 07:44] LABS: ALBUMIN 2.4 g/dl (3.4-5.0); ALK PHOS 74 U/L (45-117); ANION GAP 4 MMOL/L (8-16); BILIRUBIN,TOTAL 1.4 mg/dL (0.2-1); BLOOD UREA NITROGEN 49 mg/dL (7-18); CALCIUM 8.2 mg/dL (8.5-10.1); CHLORIDE 107 mmol/L (98-107); CO2 36 mmol/L (21-32); CREATININE 0.8 mg/dL (0.55-1.3); GLUCOSE,RANDOM 153 mg/dL (74-106); MAGNESIUM 2.1 mg/dL (1.8-2.4); POTASSIUM 3.6 mmol/L (3.5-5.1); SGOT/AST 83 U/L (15-37); SGPT/ALT 111 U/L (13-61); SODIUM 146 mmol/L (136-145); TOT PROT 4.9 g/dl (6.4-8.2)
--- NOTE | 2018-09-06 10:01 | PN ---
Progress Note (short form) - Note Progress Note: asymptomatic. denies Cp, SOB< fever, chills, cough, N/V/C/D Current Medications Generic Name Dose Route Start Last Admin Trade Name Freq PRN Reason Stop Dose Admin Acetaminophen 650 mg 09/01/18 21:45 Tylenol Oral Solution - PO Q6H PRN FEVER Albuterol/Ipratropium 1 amp 09/01/18 04:27 09/05/18 13:13 Duoneb - NEB 1 amp Q4H PRN Administration SHORTNESS OF BREATH Alprazolam 0.25 mg 09/03/18 11:32 09/04/18 21:10 Xanax - PO 0.25 mg Q6H PRN Administration ANXIETY Amlodipine Besylate 5 mg 09/05/18 16:00 09/05/18 17:00 Norvasc - PO 5 mg DAILY [facility] Administration Aspirin 81 mg 09/02/18 10:00 09/05/18 09:32 Asa - PO 81 mg DAILY [facility] Administration Chlorhexidine Gluconate 1 applic 09/01/18 22:00 09/05/18 21:35 Hibiclens For Decolonization - TP 1 applic HS [facility] Administration Fenofibric Acid 135 mg 09/02/18 10:00 09/05/18 09:32 Trilipix - PO 135 mg DAILY [facility] Administration Methylprednisolone Sodium Succinate 40 mg 09/04/18 22:00 09/05/18 21:35 Solu-Medrol - IVPUSH 40 mg BID [facility] Administration Multivitamins/Minerals/Vitamin C 1 tab 09/02/18 10:00 09/05/18 09:32 Tab-A-Vit - PO 1 tab DAILY [facility] Administration Nebivolol 5 mg 09/06/18 10:00 Bystolic - PO DAILY [facility] Ramipril 5 mg 09/05/18 22:00 09/05/18 21:35 Altace - PO 5 mg BID [facility] Administration Rosuvastatin Calcium 10 mg 09/01/18 22:00 09/05/18 21:50 Crestor - PO 10 mg HS [facility] Administration Last Vital Signs Temp Pulse Resp BP Pulse Ox 97.5 F L 82 20 168/66 100 09/06/18 08:00 09/06/18 08:00 09/06/18 08:00 09/06/18 08:00 09/06/18 06:00 General NAD, frail elderly lady, prominent clavicles CV S1 S2 RRR no murmur/rub/gallop Lungs CTA, poor inspiratory effort Abdomen soft NT/ND scallped abdomen Extremities no pedal edema CBCD WBC 12.9 K/mm3 (4.0-10.0) H 09/06/18 05:30 RBC 2.64 M/mm3 (3.60-5.2) L 09/06/18 05:30 Hgb 9.0 GM/dL (10.7-15.3) L 09/06/18 05:30 Hct 26.7 % (32.4-45.2) L 09/06/18 05:30 MCV 101.3 fl (80-96) H 09/06/18 05:30 MCHC 33.8 g/dl (32.0-36.0) 09/06/18 05:30 RDW 15.0 % (11.6-15.6) 09/06/18 05:30 Plt Count 102 K/MM3 (134-434) L D 09/06/18 05:30 MPV 9.6 fl (7.5-11.1) 09/06/18 05:30 CMP Sodium 146 mmol/L (136-145) H 09/06/18 05:30 Potassium 3.6 mmol/L (3.5-5.1) 09/06/18 05:30 Chloride 107 mmol/L (98-107) 09/06/18 05:30 Carbon Dioxide 36 mmol/L (21-32) H 09/06/18 05:30 Anion Gap 4 MMOL/L (8-16) L 09/06/18 05:30 BUN 49 mg/dL (7-18) H 09/06/18 05:30 Creatinine 0.8 mg/dL (0.55-1.3) 09/06/18 05:30 Creat Clearance w eGFR > 60 (>60) 09/06/18 05:30 Calcium 8.2 mg/dL (8.5-10.1) L 09/06/18 05:30 Total Bilirubin 1.4 mg/dL (0.2-1) H 09/06/18 05:30 AST 83 U/L (15-37) H 09/06/18 05:30 ALT 111 U/L (13-61) H 09/06/18 05:30 Alkaline Phosphatase 74 U/L (45-117) 09/06/18 05:30 Total Protein 4.9 g/dl (6.4-8.2) L 09/06/18 05:30 Albumin 2.4 g/dl (3.4-5.0) L 09/06/18 05:30 A/P 78yo F wtih PMH dyslipidemia, HTN, breast ca, CAD s/p stent, PSVT presented to the ER [facility] acute hypoxic respiratory failure due to COPD exacerbation adn PNA 1. Acute hypoxic respiratory failure- due to COPD exacerbation and PNA. was intubated and now extubated. clinically improved. saturating well on NC. completed abx course. on Medrol 40mg BID, titrate down as tolerated. nebs. inhalers. will need eval for home O2 prior to discharge 2. Tropinemia- due to demand from hypoxia. on asa. cardio on board. can f/u with patient observer for further ischemia eval 3. HTN- above goal. started on norvasc and ramipril yesterday. atenolol switched to bystolic yesterday due to concern for pulmonary spasm on betablocker. increase ramipril for tighter control 4. breast ca- s/p Rtx in 1999 5. DVT ppx- will start heparin as unclear why not on anticoagulation 6. stable for transfer to floors. PT eval will liekly benefit from DANN when medically optimized Visit type - Emergency Visit Emergency Visit: Yes ED Registration Date: 08/26/18 Care time: The patient presented to the Emergency Department on the above date and was hospitalized for further evaluation of their emergent condition. - New Patient This patient is new to me today: Yes Date on this admission: 09/06/18 - Critical Care Critical Care patient: Yes Total Critical Care Time (in minutes): 42 Critical Care Statement: The care of this patient involved high complexity decision making to prevent further life threatening deterioration of the patient 's condition and/or to evaluate & treat vital organ system(s) failure or risk of failure. - Discharge Referral Referred to [facility] Med P.[facility].: No
--- NOTE | 2018-09-06 11:24 | PN ---
Progress Note, Physician History of Present Illness: Breathing and sensorium improved. BP elevated. - Current Medication List Current Medications: Active Medications Acetaminophen (Tylenol Oral Solution -) 650 mg PO Q6H PRN PRN Reason: FEVER Albuterol/Ipratropium (Duoneb -) 1 amp NEB Q4H PRN PRN Reason: SHORTNESS OF BREATH Last Admin: 09/05/18 13:13 Dose: 1 amp Alprazolam (Xanax -) 0.25 mg PO Q6H PRN PRN Reason: ANXIETY Last Admin: 09/04/18 21:10 Dose: 0.25 mg Amlodipine Besylate (Norvasc -) 5 mg PO DAILY [facility] Last Admin: 09/05/18 17:00 Dose: 5 mg Aspirin (Asa -) 81 mg PO DAILY [facility] Last Admin: 09/05/18 09:32 Dose: 81 mg Chlorhexidine Gluconate (Hibiclens For Decolonization -) 1 applic TP [facility] Last Admin: 09/05/18 21:35 Dose: 1 applic Fenofibric Acid (Trilipix -) 135 mg PO DAILY [facility] Last Admin: 09/05/18 09:32 Dose: 135 mg Methylprednisolone Sodium Succinate (Solu-Medrol -) 40 mg IVPUSH BID [facility] Last Admin: 09/05/18 21:35 Dose: 40 mg Multivitamins/Minerals/Vitamin C (Tab-A-Vit -) 1 tab PO DAILY [facility] Last Admin: 09/05/18 09:32 Dose: 1 tab Nebivolol (Bystolic -) 5 mg PO DAILY [facility] Ramipril (Altace -) 5 mg PO BID [facility] Last Admin: 09/05/18 21:35 Dose: 5 mg Rosuvastatin Calcium (Crestor -) 10 mg PO HS [facility] Last Admin: 09/05/18 21:50 Dose: 10 mg - Objective Vital Signs: Vital Signs Temperature 97.1 F L 09/06/18 10:57 Pulse Rate 97 H 09/06/18 10:57 Respiratory Rate 20 09/06/18 10:57 Blood Pressure 167/68 09/06/18 10:57 O2 Sat by Pulse Oximetry (%) 100 09/06/18 06:00 Constitutional: Yes: No Distress, Calm, Thin Neck: Yes: Supple Cardiovascular: Yes: Regular Rate and Rhythm Respiratory: Yes: Regular, Diminished, On Nasal O2 Gastrointestinal: Yes: Normal Bowel Sounds, Soft Edema: No Labs: CBC, BMP 09/06/18 05:30 09/06/18 05:30 INR, PTT INR 1.23 (0.83-1.09) H 08/27/18 21:00 - ....Imaging EKG: Report Reviewed (Tele: NSR) Problem List - Problems (1) Demand ischemia Code(s): I24.8 - OTHER FORMS OF ACUTE ISCHEMIC HEART DISEASE (2) Acute respiratory failure Code(s): J96.00 - ACUTE RESPIRATORY FAILURE, UNSP W HYPOXIA OR HYPERCAPNIA (3) CAD (coronary artery disease) Code(s): I25.10 - ATHSCL HEART DISEASE OF [place] CORONARY ARTERY W/O ANG PCTRS Qualifiers: Qualified Code(s): I25.10 - Atherosclerotic heart disease of [place] coronary artery without angina pectoris (4) COPD exacerbation Code(s): J44.1 - CHRONIC OBSTRUCTIVE PULMONARY DISEASE W (ACUTE) EXACERBATION (5) HLD (hyperlipidemia) Code(s): E78.5 - HYPERLIPIDEMIA, UNSPECIFIED Qualifiers: Qualified Code(s): E78.2 - Mixed hyperlipidemia (6) HTN (hypertension) Code(s): I10 - ESSENTIAL (PRIMARY) HYPERTENSION Qualifiers: Qualified Code(s): I10 - Essential (primary) hypertension (7) PSVT (paroxysmal supraventricular tachycardia) Code(s): I47.1 - SUPRAVENTRICULAR TACHYCARDIA (8) UTI (urinary tract infection) Code(s): N39.0 - URINARY TRACT INFECTION, SITE NOT SPECIFIED Qualifiers: Qualified Code(s): N39.0 - Urinary tract infection, site not specified Assessment/Plan 08/28/2018 Echo: Low normal LV fxn, normal RV size and fxn, mild AR 1. Post acute hypoxic respiratory failure due to acute exacerbation of COPD +/- pneumonia 2. CAD post PCI/stent angina pectoris with demand ischemic injury 3. Diastolic LV dysfunction with clinical class 0 NYHA classification LV failure 4. PSVT currently in sinus rhythm 5. HTN, BP elevated 6. Hypercholesterolemia 7. History of breast carcinoma 8. Anemia PLAN: 1. Completed antibiotic coverage per ID, O2 as needed to maintain saturation Spo2 >90% , BD TX , Medrol taper, Bipap as needed 2. Continue ASA 81 qd, Crestor 10 qhs, Trilipix 135 qd 3. Increase Bystolic 10 qd, Norvasc 5 qd and ramipril 5 bid as hemodynamics tolerate 4. PT->SNF Staff Genetic Counselor: Severiano Bond MD. [facility]
[2018-09-06] MEDS ORDERED: PT OWN MED DRAWER 7, Y5N ONE (11:25)
[2018-09-06] MEDS: MULTIVITAMINS (DAILY MVI) TABLET (FP) PO SCH (11:25)
[2018-09-06] MEDS: amLODIPine BESYLATE 5 MG TABLET (FP) PO SCH (11:25)
[2018-09-06] MEDS: ASPIRIN 81 MG CHEWABLE TABLETS PO SCH (11:25)
[2018-09-06] MEDS: methylPREDNISolone NA SUCC 40 MG/1 ML VIAL IVPUSH SCH (11:26)
[2018-09-06] MEDS: FENOFIBRIC ACID 135 MG CAP PO SCH (11:26)
[2018-09-06] MEDS: RAMIPRIL 5 MG CAPSULE (FP) PO SCH ×2 (11:26→21:56)
[2018-09-06] MEDS: NEBIVOLOL 5 MG TABLET (FP) PO SCH (11:27)
[2018-09-06] MEDS ORDERED: ACETAMINOPHEN 650 MG/20.3 ML ORAL SOLUTION (CUPS) PO PRN (11:50)
--- NOTE | 2018-09-06 11:59 | PN ---
Teaching Attending Note Name of Resident: Cipriano Rutledge ATTENDING PHYSICIAN STATEMENT I saw and evaluated the patient. I reviewed the resident's note and discussed the case with the resident. I agree with the resident's findings and plan as documented. SUBJECTIVE: SUBJECTIVE: Patient seen and examined in the ICU. Currently on NC O2. Mildly tachypneic at rest. More lucid today. Constitutional: Yes: Mildly tachypneic at rest, mentation is better Eyes: Yes: Conjunctiva Clear HENT: Yes: Atraumatic, Normocephalic Neck: Yes: Supple, Trachea Midline Cardiovascular: Yes: Tachycardia, S1, S2. No: JVD Respiratory: Yes: few scattered expiratory wheeze and rhonchi Gastrointestinal: Yes: Normal Bowel Sounds, Soft Edema: No Integumentary: Yes: Skin Tear / bruising Labs: Laboratory Results - last 24 hr 09/05/18 09/05/18 09/06/18 21:45 21:45 05:30 WBC 14.9 H 12.9 H RBC 2.95 L 2.64 L Hgb 10.2 L 9.0 L Hct 30.0 L 26.7 L MCV 101.5 H 101.3 H MCH 34.5 H 34.2 H MCHC 34.0 33.8 RDW 15.0 15.0 Plt Count 159 D 102 L D MPV 10.3 D 9.6 PTT (Actin FS) 17.6 L Sodium Potassium Chloride Carbon Dioxide Anion Gap BUN Creatinine Creat Clearance w eGFR Random Glucose Calcium Magnesium Total Bilirubin AST ALT Alkaline Phosphatase Total Protein Albumin 09/06/18 05:30 WBC RBC Hgb Hct MCV MCH MCHC RDW Plt Count MPV PTT (Actin FS) Sodium 146 H Potassium 3.6 Chloride 107 Carbon Dioxide 36 H Anion Gap 4 L BUN 49 H Creatinine 0.8 Creat Clearance w eGFR > 60 Random Glucose 153 H Calcium 8.2 L Magnesium 2.1 Total Bilirubin 1.4 H AST 83 H ALT 111 H Alkaline Phosphatase 74 Total Protein 4.9 L Albumin 2.4 L Assessment/Plan Acute Respiratory Failure due to AE of COPD Low clinical suspicion of Pulmonary edema Septic Shock: (?) PNA (?) UTI HTN HLD CAD s/p PCI Left Breast Ca (Stage 1, RT, 1999) Smoker O2 as needed to maintain saturation BD TX Trial of prednisone: 40mg OD ABX per ID PT / OOB to chair Dr Macedo
--- NOTE | 2018-09-06 12:34 | CONSULT ---
Admitting History and Physical - Primary Care Physician PCP: Roberta Barraza - Admission History of Present Illness: This is a 78 y/o woman PMHx of: HTN, HLD, CAD s/p Stent, L- Breast Ca (Stage 1, RT, 1999), Vaginal Cyst rupture. Who presents to the ED 08/25/18 with generalized weakness, shakiness and difficulty ambulating. [facility]TI and hyponatremia on labs. Developed shortness of breath and intubated on admission for airway protection, extubated on 08/28/18. Pt was reportedly confused with poor PO intake over last weak. Nursing observed pt allowing water to poor out of her mouth, chewing on pills. Pt is verbal, confused stating that she is in a "tasting-testing Clinic" in "", "1973" "78 yo", "[facility]". No frustration or error awareness. She is able to name,repeat, intermittent neologisms. No asymmetry. Selected Entries 09/05/18 09/05/18 09/05/18 02:00 06:00 10:32 Breakfast Supper Temperature 97.2 F L 98.2 F 97.8 F 09/05/18 09/05/18 09/06/18 14:10 22:25 04:00 Breakfast Supper 25% Temperature 98.0 F 98.2 F 09/06/18 09/06/18 09/06/18 08:00 09:44 10:57 Breakfast 25% Supper Temperature 97.5 F L 97.1 F L Laboratory Tests 09/02/18 09/03/18 09/04/18 05:30 09:15 07:10 WBC 9.1 10.2 H 11.6 H ABG pH ABG pCO2 at Pt Temp ABG pO2 at Pt Temp ABG HCO3 ABG O2 Sat (Measured) ABG O2 Content ABG Base Excess Tim Test Sodium BUN Calcium 09/05/18 09/05/18 09/06/18 05:30 08:45 05:30 WBC 13.0 H 12.9 H ABG pH 7.40 ABG pCO2 at Pt Temp 50.2 H D ABG pO2 at Pt Temp 103.0 H ABG HCO3 30.5 H ABG O2 Sat (Measured) 97.3 ABG O2 Content 12.1 L ABG Base Excess 5.4 H Tim Test Positive Sodium BUN Calcium 09/06/18 05:30 WBC ABG pH ABG pCO2 at Pt Temp ABG pO2 at Pt Temp ABG HCO3 ABG O2 Sat (Measured) ABG O2 Content ABG Base Excess Tim Test Sodium 146 H BUN 49 H Calcium 8.2 L History Source: Patient, Medical Record Limitations to Obtaining History: Clinical Condition - Past Medical History Cardiovascular: Yes: CAD, HTN, Hyperlipdemia Pulmonary: Yes: COPD ...LMP Comment: 78 YEARS OLD Heme/Onc: Yes: Cancer (Breast CA s/p lumpectomy and radiation therapy) Psych: Yes: Other (alcohol abuse) - Past Surgical History Past Surgical History: Yes: Breast Biopsy, Cholecystectomy, Joint Replacement ( right and left hips ), Stent - Advance Directives Advance Directives: Yes: Health Care Proxy - Smoking History Smoking history: Current every day smoker Have you smoked in the past 12 months: Yes Aproximately how many cigarettes per day: 2 If you are a former smoker, when did you quit?: 2009 - Alcohol/Substance Use Hx Alcohol Use: No (nightly) - Social History ADL: Independent History of Recent Travel: No History - Admission Reason For Visit: RESPIRATORY FAILURE - Diagnostics X-ray: Report Reviewed CT Scan: Report Reviewed - General Mental Status: Awake and Alert, Able to Follow Commands, Forgetful, Vague, Confused, Flat Affect Attention: Distractible, Mild Impairment Ability to Follow Directions: Fair Head/Neck Control: Fair - Hearing Hearing: Normal Hearing Aide: No With Patient: No Speech Evaluation - Communication Primary Language: [place] Communication: Yes: Simple Responses Oral Expression Ability: Yes: Mild Impairment - Speech Production Intelligibility: Yes: WNL - Speech Characteristics Voice Loudness: Normal Voice Pitch: Yes: Normal Voice Phonatory-based Quality: Yes: Normal Speech Pattern: Normal Speech Clarity: < 100% Nasal Resonance: Normal Articulation: Yes: Precise - Language/Auditory Comprehension Follows: Yes: 1 Stage Simple Commands - Language/Verbal Expression Aphasia: Yes: Neologisms Able to Communicate Wants and Needs: Yes: Mildly Impaired Functional Communication Status: Yes: Mildly Impaired - Swallow Evaluation/Bedside Assessment Current Nutritional Intake: Regular, Thin Liquids Oral Secretions: Yes: WFL Dentition: Yes: Adequate Facial Symmetry at Rest: Symmetrical Facial Symmetry on Retraction: Symmetrical Facial Movement: Controlled Sensation: Normal Against Resistance Opening: Normal Against Resistance Closing: Normal Pucker Lips: Normal Smile: Normal Lingual Movement: Normal, Symmetric Lingual Speed of Movement: Normal Lingual Movement Strgth Against Opposition: Normal Lingual Movement Characteristics: Normal Velopharyngeal Movement: Normal Laryngeal Movement: Able to Palpate, Labored,delay initiation Rate of Intake: Slow/Holding Bolus Size: WFL Chewing: WFL Oral Prep Time: WFL A-P Transit: Impaired Pocketing: Present Bilaterally (intermittent) Timing of Swallow: Delayed Coughing/Throat Clear: Yes (1 instance) Change in Voice: No Recommendations - Speech Evaluation, Impression/Plan Impression: Confused, disoriented, flat affect, impaired insight, word errors at times. Pt was able to accept and tolerate applesauce, roll,cookie, thin water through a straw but needed verbal cues to break down the task due to impaired cognition. eg Here is water. take a sip, close lips,swallow. Chew, now swallow. - Disposition Discharge to: Shelter Facility - Dysphagia Impressions/Plan Swallowing Skills: Impaired Dysphagia Impressions: Mild Impairment, Risk of Aspiration *Silent aspiration: cannot be R/O at bedside Dysphagia Treatment Plan: Small Bites, Chin Tuck/Down, Facilitative Feeding, 1/ 2 tsp. at a time, Elevate HOB during feed Recommendations: Other (Feed when alert. Increase ability to attend to task and provide verbal cues to break down the task to facilitate PO tolerance. eg Here is water. take a sip, close lips,now swallow. Chew, now swallow) - Recommendations Diet Consistency: Regular Medication Administration: Crushed with applesauce Liquids: Thin Liquids Supplement: Ensure, Magic Cup, Other (supplements b/n meals)
--- NOTE | 2018-09-06 13:52 | PN ---
Physical Exam: SUBJECTIVE: Patient seen and examined OBJECTIVE: Vital Signs Period Temp Pulse Resp BP Sys/Prakash Pulse Ox Last 24 Hr 97.1 F-98.2 F 48-97 18-24 148-180/48-77 93-100 GENERAL: The patient is awake, alert, and fully oriented, in no acute distress. HEAD: Normal with no signs of trauma. EYES: PERRL, extraocular movements intact, sclera anicteric, conjunctiva clear. No ptosis. ENT: Ears normal, nares patent, oropharynx clear without exudates, moist mucous membranes. NECK: Trachea midline, full range of motion, supple. LUNGS: Breath sounds equal, clear to auscultation bilaterally, no wheezes, no crackles, no accessory muscle use. HEART: Regular rate and rhythm, S1, S2 without murmur, rub or gallop. ABDOMEN: Soft, nontender, nondistended, normoactive bowel sounds, no guarding, no rebound, no hepatosplenomegaly, no masses. EXTREMITIES: 2+ pulses, warm, well-perfused, no edema. NEUROLOGICAL: Cranial nerves II through XII grossly intact. Normal speech, gait not observed. PSYCH: Normal mood, normal affect. SKIN: Warm, dry, normal turgor, no rashes or lesions noted Laboratory Results - last 24 hr 09/05/18 09/05/18 09/06/18 21:45 21:45 05:30 WBC 14.9 H 12.9 H RBC 2.95 L 2.64 L Hgb 10.2 L 9.0 L Hct 30.0 L 26.7 L MCV 101.5 H 101.3 H MCH 34.5 H 34.2 H MCHC 34.0 33.8 RDW 15.0 15.0 Plt Count 159 D 102 L D MPV 10.3 D 9.6 PTT (Actin FS) 17.6 L Sodium Potassium Chloride Carbon Dioxide Anion Gap BUN Creatinine Creat Clearance w eGFR Random Glucose Calcium Magnesium Total Bilirubin AST ALT Alkaline Phosphatase Total Protein Albumin 09/06/18 05:30 WBC RBC Hgb Hct MCV MCH MCHC RDW Plt Count MPV PTT (Actin FS) Sodium 146 H Potassium 3.6 Chloride 107 Carbon Dioxide 36 H Anion Gap 4 L BUN 49 H Creatinine 0.8 Creat Clearance w eGFR > 60 Random Glucose 153 H Calcium 8.2 L Magnesium 2.1 Total Bilirubin 1.4 H AST 83 H ALT 111 H Alkaline Phosphatase 74 Total Protein 4.9 L Albumin 2.4 L Active Medications Generic Name Dose Route Start Last Admin Trade Name Mirella PRN Reason Stop Dose Admin Acetaminophen 650 mg 09/06/18 11:50 Tylenol Oral Solution - PO Q6H PRN FEVER Albuterol/Ipratropium 1 amp 09/06/18 11:50 Duoneb - NEB Q4H PRN SHORTNESS OF BREATH Alprazolam 0.25 mg 09/06/18 11:50 Xanax - PO Q6H PRN ANXIETY Amlodipine Besylate 5 mg 09/05/18 16:00 09/06/18 11:25 Norvasc - PO 5 mg DAILY [facility] Administration Aspirin 81 mg 09/07/18 10:00 Asa - PO DAILY [facility] Chlorhexidine Gluconate 1 applic 09/06/18 22:00 Hibiclens For Decolonization - TP HS [facility] Fenofibric Acid 135 mg 09/07/18 10:00 Trilipix - PO DAILY [facility] Heparin Sodium (Porcine) 5,000 unit 09/06/18 14:00 Heparin - SQ TID [facility] Methylprednisolone Sodium Succinate 40 mg 09/04/18 22:00 09/06/18 11:26 Solu-Medrol - IVPUSH 40 mg BID [facility] Administration Multivitamins/Minerals/Vitamin C 1 tab 09/07/18 10:00 Tab-A-Vit - PO DAILY [facility] Nebivolol 5 mg 09/06/18 10:00 09/06/18 11:27 Bystolic - PO 5 mg DAILY [facility] Administration Ramipril 10 mg 09/06/18 22:00 Altace - PO BID [facility] Rosuvastatin Calcium 10 mg 09/06/18 22:00 Crestor - PO [facility] ASSESSMENT/PLAN:
[2018-09-06] MEDS: HEPARIN NA (PORCINE) 5,000 UNITS/ML 1ML VIAL SQ SCH ×2 (15:00→21:58)
[2018-09-06] MEDS: ALBUTEROL SO4 2.5/IPRATROPIUM 0.5 INH SOL 3 ML VIAL.NEB. NEB PRN ×2 (17:54→21:10)
[2018-09-06] MEDS: predniSONE 20 MG TABLET (UD) PO SCH (21:56)
[2018-09-06] MEDS: ROSUVASTATIN CA 10 MG TABLET (FP) PO SCH (21:56)
[2018-09-06] MEDS: ALPRAZolam 0.25 MG TABLET PO PRN (21:58)
[2018-09-06] MEDS: CHLORHEXIDINE GLUCONATE 4% CLEANSER FOR DECOLONIZATION TP SCH (22:13)
[2018-09-07] MEDS: HEPARIN NA (PORCINE) 5,000 UNITS/ML 1ML VIAL SQ SCH (06:22)
[2018-09-07 07:06] LABS: BASO % 0.1 % (0-2.0); HEMATOCRIT 26.2 % (32.4-45.2); HEMOGLOBIN 8.9 GM/dL (10.7-15.3); LYMPH % 2.4 % (8-40); MCH 33.9 pg (25.7-33.7); MCHC 33.9 g/dl (32.0-36.0); MEAN CELL VOLUME 100.1 fl (80-96); MEAN PLT VOLUME 9.5 fl (7.5-11.1); MONO % 2.1 % (3.8-10.2); NEUT % 95.4 % (42.8-82.8); PLATELET COUNT 84 K/MM3 (134-434); RBC 2.61 M/mm3 (3.60-5.2); RDW 14.8 % (11.6-15.6); WHITE BLOOD COUNT 12.3 K/mm3 (4.0-10.0)
[2018-09-07 08:18] LABS: BLOOD UREA NITROGEN 57 mg/dL (7-18); GLUCOSE,RANDOM 183 mg/dL (74-106)
[2018-09-07 08:19] LABS: ANION GAP 3 MMOL/L (8-16); CALCIUM 8.4 mg/dL (8.5-10.1); CHLORIDE 106 mmol/L (98-107); CO2 37 mmol/L (21-32); CREATININE 0.8 mg/dL (0.55-1.3); POTASSIUM 3.9 mmol/L (3.5-5.1); SODIUM 147 mmol/L (136-145)
[2018-09-07] MEDS: predniSONE 20 MG TABLET (UD) PO SCH ×2 (09:47→21:57)
[2018-09-07] MEDS: amLODIPine BESYLATE 5 MG TABLET (FP) PO SCH (09:48)
[2018-09-07] MEDS: RAMIPRIL 5 MG CAPSULE (FP) PO SCH ×2 (09:48→21:57)
[2018-09-07] MEDS: MULTIVITAMINS (DAILY MVI) TABLET (FP) PO SCH (09:48)
[2018-09-07] MEDS: NEBIVOLOL 5 MG TABLET (FP) PO SCH (09:48)
[2018-09-07] MEDS: FENOFIBRIC ACID 135 MG CAP PO SCH (09:49)
[2018-09-07] MEDS: ASPIRIN 81 MG CHEWABLE TABLETS PO SCH (09:49)
[2018-09-07 11:17] LABS: ANISOCYTOSIS 1+; MACROCYTOSIS 1+; PLATELET ESTIMATE DECREASED
--- NOTE | 2018-09-07 12:00 | PN ---
Progress Note, Physician History of Present Illness: pulmonary alert,feeling better,less dyspneic on nasal cannula O2 sat 93% - Current Medication List Current Medications: Active Medications Acetaminophen (Tylenol Oral Solution -) 650 mg PO Q6H PRN PRN Reason: FEVER Albuterol/Ipratropium (Duoneb -) 1 amp NEB Q4H PRN PRN Reason: SHORTNESS OF BREATH Last Admin: 09/06/18 21:10 Dose: 1 amp Alprazolam (Xanax -) 0.25 mg PO Q6H PRN PRN Reason: ANXIETY Last Admin: 09/06/18 21:58 Dose: 0.25 mg Amlodipine Besylate (Norvasc -) 5 mg PO DAILY [facility] Last Admin: 09/07/18 09:48 Dose: 5 mg Aspirin (Asa -) 81 mg PO DAILY [facility] Last Admin: 09/07/18 09:49 Dose: 81 mg Chlorhexidine Gluconate (Hibiclens For Decolonization -) 1 applic TP [facility] Last Admin: 09/06/18 22:13 Dose: Not Given Fenofibric Acid (Trilipix -) 135 mg PO DAILY [facility] Last Admin: 09/07/18 09:49 Dose: 135 mg Multivitamins/Minerals/Vitamin C (Tab-A-Vit -) 1 tab PO DAILY [facility] Last Admin: 09/07/18 09:48 Dose: 1 tab Nebivolol (Bystolic -) 5 mg PO DAILY [facility] Last Admin: 09/07/18 09:48 Dose: 5 mg Prednisone (Deltasone -) 50 mg PO BID [facility] Last Admin: 09/07/18 09:47 Dose: 50 mg Ramipril (Altace -) 10 mg PO BID [facility] Last Admin: 09/07/18 09:48 Dose: 10 mg Rosuvastatin Calcium (Crestor -) 10 mg PO HS [facility] Last Admin: 09/06/18 21:56 Dose: 10 mg - Objective Vital Signs: Vital Signs Temperature 98 F 09/07/18 09:09 Pulse Rate 72 09/07/18 09:09 Respiratory Rate 20 09/07/18 09:09 Blood Pressure 142/56 L 09/07/18 09:09 O2 Sat by Pulse Oximetry (%) 95 09/06/18 20:32 Constitutional: Yes: Calm, Thin Eyes: Yes: WNL HENT: Yes: WNL Neck: Yes: WNL Cardiovascular: Yes: Regular Rate and Rhythm, S1, S2 Respiratory: Yes: Wheezes (few scattered wheezes) Gastrointestinal: Yes: Normal Bowel Sounds, Soft Extremities: Yes: WNL Edema: No Labs: CBC, BMP 09/07/18 05:30 09/07/18 05:30 INR, PTT INR 1.23 (0.83-1.09) H 08/27/18 21:00 Problem List - Problems (1) Acute respiratory failure with hypoxia and hypercapnia Code(s): J96.01 - ACUTE RESPIRATORY FAILURE WITH HYPOXIA; J96.02 - ACUTE RESPIRATORY FAILURE WITH HYPERCAPNIA (2) Pneumonia Code(s): J18.9 - PNEUMONIA, UNSPECIFIED ORGANISM (3) Acute respiratory failure Code(s): J96.00 - ACUTE RESPIRATORY FAILURE, UNSP W HYPOXIA OR HYPERCAPNIA (4) Breast CA Code(s): C50.919 - MALIGNANT NEOPLASM OF UNSP SITE OF UNSPECIFIED FEMALE BREAST (5) COPD exacerbation Code(s): J44.1 - CHRONIC OBSTRUCTIVE PULMONARY DISEASE W (ACUTE) EXACERBATION (6) Demand ischemia Code(s): I24.8 - OTHER FORMS OF ACUTE ISCHEMIC HEART DISEASE (7) HLD (hyperlipidemia) Code(s): E78.5 - HYPERLIPIDEMIA, UNSPECIFIED Qualifiers: Hyperlipidemia type: mixed hyperlipidemia Qualified Code(s): E78.2 - Mixed hyperlipidemia (8) HTN (hypertension) Code(s): I10 - ESSENTIAL (PRIMARY) HYPERTENSION Qualifiers: Hypertension type: essential hypertension Qualified Code(s): I10 - Essential (primary) hypertension Assessment/Plan ASSESSMENT AND PLAN: Acute Hypoxic and Hypercapneic Respiratory Failure improving Acute COPD Exacerbation improving Pneumonia LV Diastolic Dysfunction PSVT HTN Hyperlipidemia h/o Breast Ca - antibiotics - Prednisone - inhaled bronchodilators standing and PRN - BiPAP as needed to assist in work of breathing - O2 to keep Spo2 >90% - DVT/GI prophylaxis - pulse oximetry monitoring DR BEAL
--- NOTE | 2018-09-07 12:21 | PN ---
Progress Note, PHOTOGRAPHER MODEL - Note Progress Note: Selected Entries 09/06/18 09/06/18 09/06/18 00:00 04:00 08:00 Breakfast Diet Tolerated Lunch Temperature Pulse Rate 48 L 65 82 09/06/18 09/06/18 09/06/18 09:44 10:57 11:26 Breakfast 25% Diet Tolerated Lunch Temperature Pulse Rate 97 H 59 L 09/06/18 09/06/18 09/06/18 13:19 15:52 17:19 Breakfast Diet Tolerated Poor Lunch 25% Temperature Pulse Rate 97 H 97 H 09/06/18 09/06/18 09/07/18 18:42 20:32 01:00 Breakfast Diet Tolerated Lunch Temperature 97.5 F L Pulse Rate 77 74 09/07/18 09/07/18 09/07/18 06:10 09:09 09:56 Breakfast 25% Diet Tolerated Poor Lunch Temperature 97.8 F 98 F Pulse Rate Laboratory Tests 09/05/18 09/06/18 09/07/18 05:30 05:30 05:30 WBC 13.0 H 12.9 H 12.3 H CHEMICAL WORKER reports pt accepts entire Ensure. Reviewed swallowing strategies to increase PO acceptance of solids. If unsuccessful, downgrade to Chopped.
--- NOTE | 2018-09-07 14:22 | PN ---
Progress Note, Physician History of Present Illness: Breathing improving. BP control improved. - Current Medication List Current Medications: Active Medications Acetaminophen (Tylenol Oral Solution -) 650 mg PO Q6H PRN PRN Reason: FEVER Albuterol/Ipratropium (Duoneb -) 1 amp NEB Q4H PRN PRN Reason: SHORTNESS OF BREATH Last Admin: 09/06/18 21:10 Dose: 1 amp Alprazolam (Xanax -) 0.25 mg PO Q6H PRN PRN Reason: ANXIETY Last Admin: 09/06/18 21:58 Dose: 0.25 mg Amlodipine Besylate (Norvasc -) 5 mg PO DAILY [facility] Last Admin: 09/07/18 09:48 Dose: 5 mg Aspirin (Asa -) 81 mg PO DAILY [facility] Last Admin: 09/07/18 09:49 Dose: 81 mg Chlorhexidine Gluconate (Hibiclens For Decolonization -) 1 applic TP [facility] Last Admin: 09/06/18 22:13 Dose: Not Given Fenofibric Acid (Trilipix -) 135 mg PO DAILY [facility] Last Admin: 09/07/18 09:49 Dose: 135 mg Multivitamins/Minerals/Vitamin C (Tab-A-Vit -) 1 tab PO DAILY [facility] Last Admin: 09/07/18 09:48 Dose: 1 tab Nebivolol (Bystolic -) 5 mg PO DAILY [facility] Last Admin: 09/07/18 09:48 Dose: 5 mg Prednisone (Deltasone -) 50 mg PO BID [facility] Last Admin: 09/07/18 09:47 Dose: 50 mg Ramipril (Altace -) 10 mg PO BID [facility] Last Admin: 09/07/18 09:48 Dose: 10 mg Rosuvastatin Calcium (Crestor -) 10 mg PO HS [facility] Last Admin: 09/06/18 21:56 Dose: 10 mg - Objective Vital Signs: Vital Signs Temperature 98 F 09/07/18 13:37 Pulse Rate 74 09/07/18 13:37 Respiratory Rate 18 09/07/18 13:37 Blood Pressure 147/63 09/07/18 13:37 O2 Sat by Pulse Oximetry (%) 95 09/06/18 20:32 Constitutional: Yes: No Distress, Calm, Thin Neck: Yes: Supple Cardiovascular: Yes: Regular Rate and Rhythm Respiratory: Yes: Regular, Diminished, On Nasal O2, SOB Gastrointestinal: Yes: Normal Bowel Sounds, Soft Edema: No Labs: CBC, BMP 09/07/18 05:30 09/07/18 05:30 INR, PTT INR 1.23 (0.83-1.09) H 08/27/18 21:00 - ....Imaging EKG: Report Reviewed (Tele: NSR) Problem List - Problems (1) Demand ischemia Code(s): I24.8 - OTHER FORMS OF ACUTE ISCHEMIC HEART DISEASE (2) Acute respiratory failure Code(s): J96.00 - ACUTE RESPIRATORY FAILURE, UNSP W HYPOXIA OR HYPERCAPNIA (3) CAD (coronary artery disease) Code(s): I25.10 - ATHSCL HEART DISEASE OF [place] CORONARY ARTERY W/O ANG PCTRS Qualifiers: Qualified Code(s): I25.10 - Atherosclerotic heart disease of [place] coronary artery without angina pectoris (4) COPD exacerbation Code(s): J44.1 - CHRONIC OBSTRUCTIVE PULMONARY DISEASE W (ACUTE) EXACERBATION (5) HLD (hyperlipidemia) Code(s): E78.5 - HYPERLIPIDEMIA, UNSPECIFIED Qualifiers: Qualified Code(s): E78.2 - Mixed hyperlipidemia (6) HTN (hypertension) Code(s): I10 - ESSENTIAL (PRIMARY) HYPERTENSION Qualifiers: Qualified Code(s): I10 - Essential (primary) hypertension (7) PSVT (paroxysmal supraventricular tachycardia) Code(s): I47.1 - SUPRAVENTRICULAR TACHYCARDIA (8) UTI (urinary tract infection) Code(s): N39.0 - URINARY TRACT INFECTION, SITE NOT SPECIFIED Qualifiers: Qualified Code(s): N39.0 - Urinary tract infection, site not specified Assessment/Plan 08/28/2018 Echo: Low normal LV fxn, normal RV size and fxn, mild AR 1. Post acute hypoxic respiratory failure due to acute exacerbation of COPD +/- pneumonia 2. CAD post PCI/stent angina pectoris with demand ischemic injury 3. Diastolic LV dysfunction with clinical class 0 NYHA classification LV failure 4. PSVT currently in sinus rhythm 5. HTN, BP elevated 6. Hypercholesterolemia 7. History of breast carcinoma 8. Anemia PLAN: 1. Completed antibiotic coverage per ID, O2 as needed to maintain saturation Spo2 >90% , BD TX , prednisone taper, Bipap as needed 2. Continue ASA 81 qd, Crestor 10 qhs, Trilipix 135 qd 3. Increase Bystolic 10 qd, Norvasc 5 qd and ramipril 5 bid as hemodynamics tolerate 4. PT->SNF [place] Master: Severiano Bond MD. [facility]
--- NOTE | 2018-09-07 14:25 | PN ---
Progress Note, Physician Chief Complaint: She is comfortable and no new c/o her platelets are coming down no distress and no fever or chills History of Present Illness: she is dropping her platelets and possibly due to heparin - Current Medication List Current Medications: Active Medications Acetaminophen (Tylenol Oral Solution -) 650 mg PO Q6H PRN PRN Reason: FEVER Albuterol/Ipratropium (Duoneb -) 1 amp NEB Q4H PRN PRN Reason: SHORTNESS OF BREATH Last Admin: 09/06/18 21:10 Dose: 1 amp Alprazolam (Xanax -) 0.25 mg PO Q6H PRN PRN Reason: ANXIETY Last Admin: 09/06/18 21:58 Dose: 0.25 mg Amlodipine Besylate (Norvasc -) 5 mg PO DAILY [facility] Last Admin: 09/07/18 09:48 Dose: 5 mg Aspirin (Asa -) 81 mg PO DAILY [facility] Last Admin: 09/07/18 09:49 Dose: 81 mg Chlorhexidine Gluconate (Hibiclens For Decolonization -) 1 applic TP [facility] Last Admin: 09/06/18 22:13 Dose: Not Given Fenofibric Acid (Trilipix -) 135 mg PO DAILY [facility] Last Admin: 09/07/18 09:49 Dose: 135 mg Multivitamins/Minerals/Vitamin C (Tab-A-Vit -) 1 tab PO DAILY [facility] Last Admin: 09/07/18 09:48 Dose: 1 tab Nebivolol (Bystolic -) 5 mg PO DAILY [facility] Last Admin: 09/07/18 09:48 Dose: 5 mg Prednisone (Deltasone -) 50 mg PO BID [facility] Last Admin: 09/07/18 09:47 Dose: 50 mg Ramipril (Altace -) 10 mg PO BID [facility] Last Admin: 09/07/18 09:48 Dose: 10 mg Rosuvastatin Calcium (Crestor -) 10 mg PO HS [facility] Last Admin: 09/06/18 21:56 Dose: 10 mg - Objective Vital Signs: Vital Signs Temperature 98 F 09/07/18 13:37 Pulse Rate 74 09/07/18 13:37 Respiratory Rate 18 09/07/18 13:37 Blood Pressure 147/63 09/07/18 13:37 O2 Sat by Pulse Oximetry (%) 95 09/06/18 20:32 Constitutional: Yes: Calm HENT: Yes: Atraumatic Neck: Yes: Supple Cardiovascular: Yes: Regular Rate and Rhythm, Other Respiratory: Yes: Wheezes Gastrointestinal: Yes: Normal Bowel Sounds Edema: No Neurological: Yes: Alert Labs: CBC, BMP 09/07/18 05:30 09/07/18 05:30 INR, PTT INR 1.23 (0.83-1.09) H 08/27/18 21:00 Impression/Plan Impression/Plan[facility] 78[facility], [facility], CAD s/p stent, PSVT presented to the ER [facility] acute hypoxic respiratory failure due to COPD exacerbation and PNA 1. Acute hypoxic respiratory failure- due to COPD she is much improved and on prednisone and seen by pulmonary 2. Tropinemia- due to demand from hypoxia. on asa. stable and has no cardiac symptoms 3. HTN- better today 4. Drop in her platelets count and today is a bigger drop francisco stop heparin and repeat labs am and hematology consult requested 5. DVT ppx- will do pressure stocking 6.She is going to need rehab once she is stable Visit type - Emergency Visit Emergency Visit: Yes ED Registration Date: 08/26/18 Care time: The patient presented to the Emergency Department on the above date and was hospitalized for further evaluation of their emergent condition. - New Patient This patient is new to me today: Yes Date on this admission: 09/07/18 - Critical Care Critical Care patient: No - Discharge Referral Referred to [facility] Med P.C.: No
[2018-09-07] MEDS: ROSUVASTATIN CA 10 MG TABLET (FP) PO SCH (22:05)
[2018-09-07] MEDS: CHLORHEXIDINE GLUCONATE 4% CLEANSER FOR DECOLONIZATION TP SCH (22:06)
--- NOTE | 2018-09-08 08:37 | PN ---
Progress Note (short form) - Note Progress Note: Chief Complaint: Events noted, notes reviewed, denies any chest pain, dyspnea continues to improve, sinus rhythm is noted History of Present Illness: Seen and examined on telemetry. Events noted, notes reviewed, denies any chest pain, dyspnea continues to improve, sinus rhythm is noted Echocardiography dated 08/28/2018 revealed low normal LV function, normal RV size and function with mild AR - Current Medication List Current Medications: Current Medications Acetaminophen (Tylenol Oral Solution -) 650 mg PO Q6H PRN PRN Reason: FEVER Albuterol/Ipratropium (Duoneb -) 1 amp NEB Q4H PRN PRN Reason: SHORTNESS OF BREATH Last Admin: 09/06/18 21:10 Dose: 1 amp Alprazolam (Xanax -) 0.25 mg PO Q6H PRN PRN Reason: ANXIETY Last Admin: 09/06/18 21:58 Dose: 0.25 mg Amlodipine Besylate (Norvasc -) 5 mg PO DAILY [facility] Last Admin: 09/07/18 09:48 Dose: 5 mg Aspirin (Asa -) 81 mg PO DAILY [facility] Last Admin: 09/07/18 09:49 Dose: 81 mg Chlorhexidine Gluconate (Hibiclens For Decolonization -) 1 applic TP [facility] Last Admin: 09/07/18 22:06 Dose: Not Given Fenofibric Acid (Trilipix -) 135 mg PO DAILY [facility] Last Admin: 09/07/18 09:49 Dose: 135 mg Multivitamins/Minerals/Vitamin C (Tab-A-Vit -) 1 tab PO DAILY [facility] Last Admin: 09/07/18 09:48 Dose: 1 tab Nebivolol (Bystolic -) 5 mg PO DAILY [facility] Last Admin: 09/07/18 09:48 Dose: 5 mg Prednisone (Deltasone -) 50 mg PO BID [facility] Last Admin: 09/07/18 21:57 Dose: 50 mg Ramipril (Altace -) 10 mg PO BID [facility] Last Admin: 09/07/18 21:57 Dose: 10 mg Rosuvastatin Calcium (Crestor -) 10 mg PO HS [facility] Last Admin: 09/07/18 22:05 Dose: 10 mg Review of Systems Cardiovascular: As noted above Respiratory: denies: As noted above Gastrointestinal: denies: Nausea, Vomiting, Diarrhea, Constipation or Abdominal Discomfort Musculoskeletal: No Symptoms Reported Endocrine: No Symptoms Reported - Objective Vital Signs: Last Vital Signs Temp Pulse Resp BP Pulse Ox 97.8 F 62 20 144/68 95 09/08/18 04:50 09/08/18 04:50 09/08/18 04:50 09/08/18 04:50 09/07/18 09:00 Intake & Output 09/05/18 09/06/18 09/07/18 09/08/18 23:59 23:59 23:59 23:59 Intake Total 1356 120 150 0 Balance 1356 120 150 0 Weight 107 lb 2 oz 109 lb 101 lb 12.8 oz 102 lb 6.4 oz Constitutional: No Distress, Calm, Thin Neck: Supple Negative JVD Cardiovascular: S1 S2 Regular Rate and Rhythm Respiratory: Scattered Rhonchi Bilaterally Gastrointestinal: Soft Benign Normal Bowel Sounds Ext: No Edema Labs: ABG Results ABG pH 7.40 (7.35-7.45) 09/05/18 08:45 ABG pCO2 at Pt Temp 50.2 mmHg (35-45) H D 09/05/18 08:45 ABG pO2 at Pt Temp 103.0 mmHg (70-100) H 09/05/18 08:45 ABG HCO3 30.5 meq/L (22-26) H 09/05/18 08:45 ABG O2 Sat (Measured) 97.3 % (90-98.9) 09/05/18 08:45 ABG O2 Content 12.1 % vol (15-22) L 09/05/18 08:45 ABG Base Excess 5.4 meq/l (-2-2) H 09/05/18 08:45 CBC, BMP 09/08/18 06:00 09/07/18 05:30 Hepatic Panel Total Bilirubin 1.4 mg/dL (0.2-1) H 09/06/18 05:30 AST 83 U/L (15-37) H 09/06/18 05:30 ALT 111 U/L (13-61) H 09/06/18 05:30 Alkaline Phosphatase 74 U/L (45-117) 09/06/18 05:30 Albumin 2.4 g/dl (3.4-5.0) L 09/06/18 05:30 INR, PTT INR 1.23 (0.83-1.09) H 08/27/18 21:00 Assessment/Plan ASSESSMENT: 1. Post acute hypoxic respiratory failure due to acute exacerbation of COPD +/- pneumonia, resolving 2. CAD post PCI/stent angina pectoris with demand ischemic injury 3. Diastolic LV dysfunction with clinical class 0 NYHA classification LV failure 4. PSVT currently in sinus rhythm 5. HTN 6. Hypercholesterolemia 7. History of breast carcinoma 8. Anemia/Thrombocytopenia PLAN: 1. Continue ASA 2. Continue Crestor and Trilipix 3. Continue Bystolic, hemodynamics permitting 4. Continue Ramipril, hemodynamics permitting 5. Steroids and bronchodilators as per the primary team Oh Laguerre MD
[2018-09-08 08:40] LABS: BASO % 0.1 % (0-2.0); HEMATOCRIT 27.2 % (32.4-45.2); HEMOGLOBIN 9.2 GM/dL (10.7-15.3); LYMPH % 3.3 % (8-40); MCH 34.2 pg (25.7-33.7); MCHC 33.9 g/dl (32.0-36.0); MEAN CELL VOLUME 100.8 fl (80-96); MEAN PLT VOLUME 9.8 fl (7.5-11.1); MONO % 3.4 % (3.8-10.2); NEUT % 93.2 % (42.8-82.8); PLATELET COUNT 99 K/MM3 (134-434); RDW 15.1 % (11.6-15.6); WHITE BLOOD COUNT 15.7 K/mm3 (4.0-10.0)
--- NOTE | 2018-09-08 09:38 | PN ---
Physical Exam: SUBJECTIVE: Patient seen and examined. She says she feels less SOB. OBJECTIVE: Vital Signs Period Temp Pulse Resp BP Sys/Prakash Pulse Ox Last 24 Hr 97.8 F-98.0 F 62-74 18-20 140-147/57-68 GENERAL: The patient is awake, alert, and fully oriented, in no acute distress. LUNGS: Breath sounds diminished with bilateral expiratory wheezes. HEART: Regular rate and rhythm, S1, S2 without murmur, rub or gallop. ABDOMEN: Soft, nontender, nondistended, normoactive bowel sounds, no guarding, no rebound, no hepatosplenomegaly, no masses. EXTREMITIES: 2+ pulses, warm, well-perfused, no edema. Laboratory Results - last 24 hr 09/07/18 09/08/18 05:30 06:00 WBC 15.7 H RBC 2.70 L Hgb 9.2 L Hct 27.2 L MCV 100.8 H MCH 34.2 H MCHC 33.9 RDW 15.1 Plt Count 99 L MPV 9.8 Absolute Neuts (auto) 14.6 H Neutrophils % 93.2 H Neutrophils % (Manual) 97.0 H Band Neutrophils % 0.0 Lymphocytes % 3.3 L D Lymphocytes % (Manual) 2.0 L D Monocytes % 3.4 L Monocytes % (Manual) 1 L Eosinophils % 0.0 Eosinophils % (Manual) 0.0 Basophils % 0.1 Basophils % (Manual) 0.0 Myelocytes % (Man) 0 Promyelocytes % (Man) 0 Blast Cells % (Manual) 0 Nucleated RBC % 0 Metamyelocytes 0 Hypochromia 0 Platelet Estimate Decreased Polychromasia 0 Poikilocytosis 0 Anisocytosis 1+ Microcytosis 0 Macrocytosis 1+ Active Medications Generic Name Dose Route Start Last Admin Trade Name Freq PRN Reason Stop Dose Admin Acetaminophen 650 mg 09/06/18 11:50 Tylenol Oral Solution - PO Q6H PRN FEVER Albuterol/Ipratropium 1 amp 09/06/18 11:50 09/06/18 21:10 Duoneb - NEB 1 amp Q4H PRN Administration SHORTNESS OF BREATH Alprazolam 0.25 mg 09/06/18 11:50 09/06/18 21:58 Xanax - PO 0.25 mg Q6H PRN Administration ANXIETY Amlodipine Besylate 5 mg 09/05/18 16:00 09/07/18 09:48 Norvasc - PO 5 mg DAILY [facility] Administration Aspirin 81 mg 09/07/18 10:00 09/07/18 09:49 Asa - PO 81 mg DAILY [facility] Administration Chlorhexidine Gluconate 1 applic 09/06/18 22:00 09/07/18 22:06 Hibiclens For Decolonization - TP Not Given HS [facility] Fenofibric Acid 135 mg 09/07/18 10:00 09/07/18 09:49 Trilipix - PO 135 mg DAILY [facility] Administration Multivitamins/Minerals/Vitamin C 1 tab 09/07/18 10:00 09/07/18 09:48 Tab-A-Vit - PO 1 tab DAILY [facility] Administration Nebivolol 5 mg 09/06/18 10:00 09/07/18 09:48 Bystolic - PO 5 mg DAILY [facility] Administration Prednisone 50 mg 09/06/18 22:00 09/07/18 21:57 Deltasone - PO 50 mg BID [facility] Administration Ramipril 10 mg 09/06/18 22:00 09/07/18 21:57 Altace - PO 10 mg BID [facility] Administration Rosuvastatin Calcium 10 mg 09/06/18 22:00 09/07/18 22:05 Crestor - PO 10 mg HS [facility] Administration ASSESSMENT/PLAN: This is a 78 year old woman wtih a history of HTN, hyperlipidemia, CAD, stent, PSVT, breast cancer who presented to the ED with weakness, was found to have hyponatremia and UTI, and developed acute respiratory failure. 1. Acute hypoxic and hypercapnic respiratory failure secondary to COPD exacerbation and pneumonia - s/p intubation - extubated 08/28 - Continue prednisone, Duoneb as needed - Completed ceftriaxone, Zithromax - Continue oxygen to maintain saturation >90% 2. Demand ischemia 3. PSVT - No further episodes noted 4. Anemia - Likely secondary to sepsis - Hgb stable - Continue to monitor 5. Thrombocytopenia - Likely secondary to sepsis, heparin - Heparin discontinued - Platelets stable - Continue to monitor 6. CAD, history of PCI and stent - Continue aspirin, Bystolic, Crestor, Trilipix 7. HTN - Continue Bystolic, Norvasc, Altace 8. Hyperlipidemia - Continue Crestor, Trilipix 9. Diastolic dysfunction - No evidence of acute diastolic heart failure 10. Breast cancer 11. Disposition - Continue PT - Will need short term rehab at discharge Visit type - Emergency Visit Emergency Visit: Yes ED Registration Date: 08/26/18 Care time: The patient presented to the Emergency Department on the above date and was hospitalized for further evaluation of their emergent condition. - New Patient This patient is new to me today: Yes Date on this admission: 09/08/18 - Critical Care Critical Care patient: No - Discharge Referral Referred to [facility] Med P.C.: No
[2018-09-08] MEDS: RAMIPRIL 5 MG CAPSULE (FP) PO SCH (10:31)
[2018-09-08] MEDS: NEBIVOLOL 5 MG TABLET (FP) PO SCH (10:32)
[2018-09-08] MEDS: ASPIRIN 81 MG CHEWABLE TABLETS PO SCH (10:32)
[2018-09-08] MEDS: predniSONE 20 MG TABLET (UD) PO SCH (10:32)
[2018-09-08] MEDS: FENOFIBRIC ACID 135 MG CAP PO SCH (10:33)
[2018-09-08] MEDS: amLODIPine BESYLATE 5 MG TABLET (FP) PO SCH (10:33)
[2018-09-08] MEDS: MULTIVITAMINS (DAILY MVI) TABLET (FP) PO SCH (10:33)
[2018-09-08 12:06] LABS: ANISOCYTOSIS 2+; MACROCYTOSIS 0; PLATELET ESTIMATE DECREASED; TARGET CELLS 1+; TEAR DROP CELLS 1+
[2018-09-08] MEDS ORDERED: ALBUTEROL SO4 0.083% IH SOL 2.5 MG/3 ML VIAL.NEB. NEB PRN (12:57)
--- NOTE | 2018-09-08 12:57 | PN ---
Progress Note (short form) - Note Progress Note: Breathing feels overall better. Still remains mildly tachypenic at rest. No CP. Intake & Output 09/05/18 09/06/18 09/07/18 09/08/18 23:59 23:59 23:59 23:59 Intake Total 1356 120 150 0 Balance 1356 120 150 0 Weight 107 lb 2 oz 109 lb 101 lb 12.8 oz 102 lb 6.4 oz Last Vital Signs Temp Pulse Resp BP Pulse Ox 97.7 F 63 20 154/60 95 09/08/18 10:00 09/08/18 10:00 09/08/18 10:00 09/08/18 10:00 09/07/18 09:00 Active Medications Acetaminophen (Tylenol Oral Solution -) 650 mg PO Q6H PRN PRN Reason: FEVER Albuterol/Ipratropium (Duoneb -) 1 amp NEB Q4H PRN PRN Reason: SHORTNESS OF BREATH Last Admin: 09/06/18 21:10 Dose: 1 amp Alprazolam (Xanax -) 0.25 mg PO Q6H PRN PRN Reason: ANXIETY Last Admin: 09/06/18 21:58 Dose: 0.25 mg Amlodipine Besylate (Norvasc -) 5 mg PO DAILY [facility] Last Admin: 09/08/18 10:33 Dose: 5 mg Aspirin (Asa -) 81 mg PO DAILY [facility] Last Admin: 09/08/18 10:32 Dose: 81 mg Chlorhexidine Gluconate (Hibiclens For Decolonization -) 1 applic TP [facility] Last Admin: 09/07/18 22:06 Dose: Not Given Fenofibric Acid (Trilipix -) 135 mg PO DAILY [facility] Last Admin: 09/08/18 10:33 Dose: 135 mg Multivitamins/Minerals/Vitamin C (Tab-A-Vit -) 1 tab PO DAILY [facility] Last Admin: 09/08/18 10:33 Dose: 1 tab Nebivolol (Bystolic -) 5 mg PO DAILY [facility] Last Admin: 09/08/18 10:32 Dose: 5 mg Prednisone (Deltasone -) 50 mg PO BID [facility] Last Admin: 09/08/18 10:32 Dose: 50 mg Ramipril (Altace -) 10 mg PO BID [facility] Last Admin: 09/08/18 10:31 Dose: 10 mg Rosuvastatin Calcium (Crestor -) 10 mg PO HS [facility] Last Admin: 09/07/18 22:05 Dose: 10 mg Constitutional: Yes: Mildly tachypneic at rest, mentation is better Eyes: Yes: Conjunctiva Clear HENT: Yes: Atraumatic, Normocephalic Neck: Yes: Supple, Trachea Midline Cardiovascular: Yes: Tachycardia, S1, S2. No: JVD Respiratory: Yes: scattered expiratory wheeze and rhonchi Gastrointestinal: Yes: Normal Bowel Sounds, Soft Edema: No Integumentary: Yes: Skin Tear / bruising Labs: Laboratory Results - last 24 hr 09/08/18 06:00 WBC 15.7 H RBC 2.70 L Hgb 9.2 L Hct 27.2 L MCV 100.8 H MCH 34.2 H MCHC 33.9 RDW 15.1 Plt Count 99 L MPV 9.8 Absolute Neuts (auto) 14.6 H Neutrophils % 93.2 H Neutrophils % (Manual) 94.8 H Band Neutrophils % 0.0 Lymphocytes % 3.3 L D Lymphocytes % (Manual) 2.1 L Monocytes % 3.4 L Monocytes % (Manual) 2 L D Eosinophils % 0.0 Eosinophils % (Manual) 0.0 Basophils % 0.1 Basophils % (Manual) 0.0 Myelocytes % (Man) 0 Promyelocytes % (Man) 0 Blast Cells % (Manual) 0 Nucleated RBC % 0 Metamyelocytes 0 Hypochromia 0 Platelet Estimate Decreased Platelet Comment Present Polychromasia 1+ Poikilocytosis 1+ Anisocytosis 2+ Microcytosis 2+ Macrocytosis 0 Target Cells 1+ Tear Drop Cells 1+ Stomatocytes 1+ Assessment/Plan Acute Respiratory Failure due to AE of COPD Low clinical suspicion of Pulmonary edema Septic Shock: (?) PNA (?) UTI HTN HLD CAD s/p PCI Left Breast Ca (Stage 1, RT, 1999) Smoker Spiriva Symbicort BID O2 as needed to maintain saturation BD TX Prednisone noted PT / OOB to chair No smoking Consider inpatient Pulmonary Rehab Dr Macedo
[2018-09-08] MEDS: BUDESONIDE/FORMETEROL FUMARATE 160/4.5 mcg INHALER IH SCH (15:27)
[2018-09-08] MEDS: TIOTROPIUM BROMIDE 2.5 MCG (SPIRIVA) RESPIMAT INHALER IH SCH (15:28)
[2018-09-09] MEDS: ROSUVASTATIN CA 10 MG TABLET (FP) PO SCH ×2 (00:41→22:00)
[2018-09-09] MEDS: predniSONE 20 MG TABLET (UD) PO SCH ×3 (00:41→22:00)
[2018-09-09] MEDS: ALPRAZolam 0.25 MG TABLET PO PRN (00:42)
[2018-09-09] MEDS: RAMIPRIL 5 MG CAPSULE (FP) PO SCH ×3 (00:42→22:00)
[2018-09-09] MEDS: CHLORHEXIDINE GLUCONATE 4% CLEANSER FOR DECOLONIZATION TP SCH ×2 (00:42→22:01)
[2018-09-09] MEDS: BUDESONIDE/FORMETEROL FUMARATE 160/4.5 mcg INHALER IH SCH ×3 (00:43→22:02)
[2018-09-09 08:01] LABS: BASO % 0.3 % (0-2.0); EOS % 0.1 % (0-4.5); HEMATOCRIT 24.1 % (32.4-45.2); HEMOGLOBIN 8.2 GM/dL (10.7-15.3); LYMPH % 3.2 % (8-40); MCH 34.4 pg (25.7-33.7); MCHC 34.2 g/dl (32.0-36.0); MEAN CELL VOLUME 100.5 fl (80-96); MONO % 2.7 % (3.8-10.2); NEUT % 93.7 % (42.8-82.8); PLATELET COUNT 87 K/MM3 (134-434); RDW 15.3 % (11.6-15.6); WHITE BLOOD COUNT 9.9 K/mm3 (4.0-10.0)
--- NOTE | 2018-09-09 08:04 | PN ---
Progress Note (short form) - Note Progress Note: Chief Complaint: Events noted, notes reviewed, confused and disoriented, denies any chest pain, dyspnea persists but improved, sinus rhythm is noted History of Present Illness: Seen and examined on telemetry. Events noted, notes reviewed, confused and disoriented, denies any chest pain, dyspnea persists but improved, sinus rhythm is noted Echocardiography dated 08/28/2018 revealed low normal LV function, normal RV size and function with mild AR - Current Medication List Current Medications: Current Medications Acetaminophen (Tylenol Oral Solution -) 650 mg PO Q6H PRN PRN Reason: FEVER Albuterol Sulfate (Ventolin 0.083% Nebulizer Soln -) 1 amp NEB Q4H PRN PRN Reason: SHORT OF BREATH/WHEEZING Alprazolam (Xanax -) 0.25 mg PO Q6H PRN PRN Reason: ANXIETY Last Admin: 09/09/18 00:42 Dose: 0.25 mg Amlodipine Besylate (Norvasc -) 5 mg PO DAILY [facility] Last Admin: 09/08/18 10:33 Dose: 5 mg Aspirin (Asa -) 81 mg PO DAILY [facility] Last Admin: 09/08/18 10:32 Dose: 81 mg Budesonide/Formoterol Fumarate (Symbicort 160/4.5mcg -) 2 puff IH BID [facility] Last Admin: 09/09/18 00:43 Dose: 2 puff Chlorhexidine Gluconate (Hibiclens For Decolonization -) 1 applic TP [facility] Last Admin: 09/09/18 00:42 Dose: Not Given Fenofibric Acid (Trilipix -) 135 mg PO DAILY [facility] Last Admin: 09/08/18 10:33 Dose: 135 mg Multivitamins/Minerals/Vitamin C (Tab-A-Vit -) 1 tab PO DAILY [facility] Last Admin: 09/08/18 10:33 Dose: 1 tab Nebivolol (Bystolic -) 5 mg PO DAILY [facility] Last Admin: 09/08/18 10:32 Dose: 5 mg Prednisone (Deltasone -) 50 mg PO BID [facility] Last Admin: 09/09/18 00:41 Dose: 50 mg Ramipril (Altace -) 10 mg PO BID [facility] Last Admin: 09/09/18 00:42 Dose: 10 mg Rosuvastatin Calcium (Crestor -) 10 mg PO HS [facility] Last Admin: 09/09/18 00:41 Dose: 10 mg Tiotropium [place] (Spiriva Respimat) 2 puff IH DAILY [facility] Last Admin: 09/08/18 15:28 Dose: 2 puff Review of Systems Cardiovascular: As noted above Respiratory: denies: As noted above Gastrointestinal: denies: Nausea, Vomiting, Diarrhea, Constipation or Abdominal Discomfort Musculoskeletal: No Symptoms Reported Endocrine: No Symptoms Reported - Objective Vital Signs: Last Vital Signs Temp Pulse Resp BP Pulse Ox 98.1 F 77 20 159/70 95 09/09/18 01:56 09/09/18 01:56 09/09/18 01:56 09/09/18 05:00 09/08/18 21:00 Intake & Output 09/06/18 09/07/18 09/08/18 09/09/18 23:59 23:59 23:59 23:59 Intake Total 120 150 210 Balance 120 150 210 Weight 109 lb 101 lb 12.8 oz 102 lb 6.4 oz Constitutional: No Distress, Calm, Thin Neck: Supple Negative JVD Cardiovascular: S1 S2 Regular Rate and Rhythm Respiratory: Scattered Rhonchi Bilaterally Gastrointestinal: Soft Benign Normal Bowel Sounds Ext: No Edema Labs: CBC, BMP 09/09/18 07:20 09/09/18 07:20 Hepatic Panel Total Bilirubin 1.4 mg/dL (0.2-1) H 09/06/18 05:30 AST 83 U/L (15-37) H 09/06/18 05:30 ALT 111 U/L (13-61) H 09/06/18 05:30 Alkaline Phosphatase 74 U/L (45-117) 09/06/18 05:30 Albumin 2.4 g/dl (3.4-5.0) L 09/06/18 05:30 INR, PTT INR 1.23 (0.83-1.09) H 08/27/18 21:00 Assessment/Plan ASSESSMENT: 1. Post acute hypoxic respiratory failure due to acute exacerbation of COPD +/- pneumonia, resolving 2. CAD post PCI/stent angina pectoris with demand ischemic injury 3. Diastolic LV dysfunction with clinical class 0 NYHA classification LV failure 4. PSVT currently in sinus rhythm 5. HTN 6. Hypercholesterolemia 7. 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 History of breast carcinoma 9. Anemia/Thrombocytopenia PLAN: 1. Continue ASA 2. Continue Crestor and Trilipix 3. Continue Bystolic, hemodynamics permitting 4. Continue Ramipril and titrate dosage as tolerated and as needed, hemodynamics permitting 5. Steroids and bronchodilators as per the primary team Oh Laguerre MD
[2018-09-09 08:39] LABS: ALBUMIN 2.3 g/dl (3.4-5.0); ALK PHOS 95 U/L (45-117); ANION GAP 5 MMOL/L (8-16); BILIRUBIN,TOTAL 1.2 mg/dL (0.2-1); BLOOD UREA NITROGEN 51 mg/dL (7-18); CALCIUM 8.4 mg/dL (8.5-10.1); CHLORIDE 105 mmol/L (98-107); CO2 34 mmol/L (21-32); GLUCOSE,RANDOM 165 mg/dL (74-106); POTASSIUM 3.7 mmol/L (3.5-5.1); SGOT/AST 61 U/L (15-37); SGPT/ALT 110 U/L (13-61); SODIUM 144 mmol/L (136-145); TOT PROT 5.8 g/dl (6.4-8.2)
[2018-09-09] MEDS: amLODIPine BESYLATE 5 MG TABLET (FP) PO SCH (10:18)
[2018-09-09] MEDS: MULTIVITAMINS (DAILY MVI) TABLET (FP) PO SCH (10:18)
[2018-09-09] MEDS: ASPIRIN 81 MG CHEWABLE TABLETS PO SCH (10:18)
[2018-09-09] MEDS: NEBIVOLOL 5 MG TABLET (FP) PO SCH (10:18)
[2018-09-09] MEDS: FENOFIBRIC ACID 135 MG CAP PO SCH (10:20)
[2018-09-09] MEDS: TIOTROPIUM BROMIDE 2.5 MCG (SPIRIVA) RESPIMAT INHALER IH SCH (10:20)
[2018-09-09 11:30] LABS: ANISOCYTOSIS 1+; MACROCYTOSIS 0; PLATELET ESTIMATE DECREASED
--- NOTE | 2018-09-09 12:09 | PN ---
Progress Note (short form) - Note Progress Note: Became agitated and confused overnight. Now awake and alert and oriented to person and hospital. Breathing feels a little better than yesterday. Less tachypenic at rest today. No CP. Intake & Output 09/06/18 09/07/18 09/08/18 09/09/18 23:59 23:59 23:59 23:59 Intake Total 120 150 210 Balance 120 150 210 Weight 109 lb 101 lb 12.8 oz 102 lb 6.4 oz Last Vital Signs Temp Pulse Resp BP Pulse Ox 98 F 65 20 164/68 95 09/09/18 09:00 09/09/18 09:00 09/09/18 09:00 09/09/18 09:00 09/08/18 21:00 Active Medications Acetaminophen (Tylenol Oral Solution -) 650 mg PO Q6H PRN PRN Reason: FEVER Albuterol Sulfate (Ventolin 0.083% Nebulizer Soln -) 1 amp NEB Q4H PRN PRN Reason: SHORT OF BREATH/WHEEZING Last Admin: 09/09/18 10:50 Dose: 1 amp Alprazolam (Xanax -) 0.25 mg PO Q6H PRN PRN Reason: ANXIETY Last Admin: 09/09/18 00:42 Dose: 0.25 mg Amlodipine Besylate (Norvasc -) 5 mg PO DAILY [facility] Last Admin: 09/09/18 10:18 Dose: 5 mg Aspirin (Asa -) 81 mg PO DAILY [facility] Last Admin: 09/09/18 10:18 Dose: 81 mg Budesonide/Formoterol Fumarate (Symbicort 160/4.5mcg -) 2 puff IH BID [facility] Last Admin: 09/09/18 10:20 Dose: 2 puff Chlorhexidine Gluconate (Hibiclens For Decolonization -) 1 applic TP HS [facility] Last Admin: 09/09/18 00:42 Dose: Not Given Fenofibric Acid (Trilipix -) 135 mg PO DAILY [facility] Last Admin: 09/09/18 10:20 Dose: Not Given Multivitamins/Minerals/Vitamin C (Tab-A-Vit -) 1 tab PO DAILY [facility] Last Admin: 09/09/18 10:18 Dose: 1 tab Nebivolol (Bystolic -) 5 mg PO DAILY [facility] Last Admin: 09/09/18 10:18 Dose: 5 mg Prednisone (Deltasone -) 50 mg PO BID [facility] Last Admin: 09/09/18 10:18 Dose: 50 mg Ramipril (Altace -) 10 mg PO BID [facility] Last Admin: 09/09/18 10:17 Dose: 10 mg Rosuvastatin Calcium (Crestor -) 10 mg PO HS [facility] Last Admin: 09/09/18 00:41 Dose: 10 mg Tiotropium [place] (Spiriva Respimat) 2 puff IH DAILY [facility] Last Admin: 09/09/18 10:20 Dose: 2 puff Constitutional: Yes: Less tachypneic at rest, mildly confused Eyes: Yes: Conjunctiva Clear HENT: Yes: Atraumatic, Normocephalic Neck: Yes: Supple, Trachea Midline Cardiovascular: Yes: Tachycardia, S1, S2. No: JVD Respiratory: Yes: less scattered expiratory wheeze and rhonchi Gastrointestinal: Yes: Normal Bowel Sounds, Soft Edema: No Integumentary: Yes: Skin Tear / bruising Labs: Laboratory Results - last 24 hr 09/08/18 09/09/18 09/09/18 06:00 07:20 07:20 WBC 9.9 RBC 2.40 L Hgb 8.2 L Hct 24.1 L MCV 100.5 H MCH 34.4 H MCHC 34.2 RDW 15.3 Plt Count 87 L MPV 10.0 Absolute Neuts (auto) 9.3 H Neutrophils % 93.7 H Neutrophils % (Manual) 94.8 H 97.0 H Band Neutrophils % 0.0 1.0 Lymphocytes % 3.2 L Lymphocytes % (Manual) 2.1 L 1.0 L D Monocytes % 2.7 L Monocytes % (Manual) 2 L D 1 L Eosinophils % 0.1 D Eosinophils % (Manual) 0.0 0.0 Basophils % 0.3 Basophils % (Manual) 0.0 0.0 Myelocytes % (Man) 0 0 Promyelocytes % (Man) 0 0 Blast Cells % (Manual) 0 0 Nucleated RBC % 0 Metamyelocytes 0 0 Hypochromia 0 0 Platelet Estimate Decreased Decreased Platelet Comment Present Polychromasia 1+ 0 Poikilocytosis 1+ 0 Anisocytosis 2+ 1+ Microcytosis 2+ 1+ Macrocytosis 0 0 Target Cells 1+ Tear Drop Cells 1+ Stomatocytes 1+ Schistocytes 1+ Sodium 144 Potassium 3.7 Chloride 105 Carbon Dioxide 34 H Anion Gap 5 L BUN 51 H Creatinine 1.0 Creat Clearance w eGFR 53.91 Random Glucose 165 H Calcium 8.4 L Total Bilirubin 1.2 H AST 61 H ALT 110 H Alkaline Phosphatase 95 Total Protein 5.8 L Albumin 2.3 L Assessment/Plan Acute Respiratory Failure due to AE of COPD Low clinical suspicion of Pulmonary edema Septic Shock: (?) PNA (?) UTI HTN HLD CAD s/p PCI Left Breast Ca (Stage 1, RT, 1999) Smoker Acute Delerium Spiriva Symbicort BID O2 as needed to maintain saturation BD TX Prednisone PT / OOB to chair No smoking Consider inpatient Pulmonary Rehab Dr Macedo
--- NOTE | 2018-09-09 15:35 | PN ---
Physical Exam: SUBJECTIVE: Patient seen and examined. She is confused. She denies SOB. OBJECTIVE: Vital Signs Period Temp Pulse Resp BP Sys/Prakash Pulse Ox Last 24 Hr 97.5 F-98.1 F 56-82 20-22 137-164/47-74 95-95 GENERAL: The patient is awake, alert, confused, in no acute distress. LUNGS: Breath sounds diminished. HEART: Regular rate and rhythm, S1, S2 without murmur, rub or gallop. ABDOMEN: Soft, nontender, nondistended, normoactive bowel sounds, no guarding, no rebound, no hepatosplenomegaly, no masses. EXTREMITIES: 2+ pulses, warm, well-perfused, no edema. Laboratory Results - last 24 hr 09/09/18 09/09/18 07:20 07:20 WBC 9.9 RBC 2.40 L Hgb 8.2 L Hct 24.1 L MCV 100.5 H MCH 34.4 H MCHC 34.2 RDW 15.3 Plt Count 87 L MPV 10.0 Absolute Neuts (auto) 9.3 H Neutrophils % 93.7 H Neutrophils % (Manual) 97.0 H Band Neutrophils % 1.0 Lymphocytes % 3.2 L Lymphocytes % (Manual) 1.0 L D Monocytes % 2.7 L Monocytes % (Manual) 1 L Eosinophils % 0.1 D Eosinophils % (Manual) 0.0 Basophils % 0.3 Basophils % (Manual) 0.0 Myelocytes % (Man) 0 Promyelocytes % (Man) 0 Blast Cells % (Manual) 0 Nucleated RBC % 0 Metamyelocytes 0 Hypochromia 0 Platelet Estimate Decreased Polychromasia 0 Poikilocytosis 0 Anisocytosis 1+ Microcytosis 1+ Macrocytosis 0 Schistocytes 1+ Sodium 144 Potassium 3.7 Chloride 105 Carbon Dioxide 34 H Anion Gap 5 L BUN 51 H Creatinine 1.0 Creat Clearance w eGFR 53.91 Random Glucose 165 H Calcium 8.4 L Total Bilirubin 1.2 H AST 61 H ALT 110 H Alkaline Phosphatase 95 Total Protein 5.8 L Albumin 2.3 L Active Medications Generic Name Dose Route Start Last Admin Trade Name Freq PRN Reason Stop Dose Admin Acetaminophen 650 mg 09/06/18 11:50 Tylenol Oral Solution - PO Q6H PRN FEVER Albuterol Sulfate 1 amp 09/08/18 12:57 09/09/18 10:50 Ventolin 0.083% Nebulizer Soln - NEB 1 amp Q4H PRN Administration SHORT OF BREATH/WHEEZING Alprazolam 0.25 mg 09/06/18 11:50 09/09/18 00:42 Xanax - PO 0.25 mg Q6H PRN Administration ANXIETY Amlodipine Besylate 5 mg 09/05/18 16:00 09/09/18 10:18 Norvasc - PO 5 mg DAILY [facility] Administration Aspirin 81 mg 09/07/18 10:00 09/09/18 10:18 Asa - PO 81 mg DAILY [facility] Administration Budesonide/Formoterol Fumarate 2 puff 09/08/18 13:00 09/09/18 10:20 Symbicort 160/4.5mcg - IH 2 puff BID [facility] Administration Chlorhexidine Gluconate 1 applic 09/06/18 22:00 09/09/18 00:42 Hibiclens For Decolonization - TP Not Given HS [facility] Fenofibric Acid 135 mg 09/07/18 10:00 09/09/18 10:20 Trilipix - PO Not Given DAILY [facility] Multivitamins/Minerals/Vitamin C 1 tab 09/07/18 10:00 09/09/18 10:18 Tab-A-Vit - PO 1 tab DAILY [facility] Administration Nebivolol 5 mg 09/06/18 10:00 09/09/18 10:18 Bystolic - PO 5 mg DAILY [facility] Administration Prednisone 50 mg 09/06/18 22:00 09/09/18 10:18 Deltasone - PO 50 mg BID [facility] Administration Ramipril 10 mg 09/06/18 22:00 09/09/18 10:17 Altace - PO 10 mg BID [facility] Administration Rosuvastatin Calcium 10 mg 09/06/18 22:00 09/09/18 00:41 Crestor - PO 10 mg HS [facility] Administration Tiotropium [place] 2 puff 09/08/18 13:00 09/09/18 10:20 Spiriva Respimat IH 2 puff DAILY [facility] Administration ASSESSMENT/PLAN: This is a 78 year old woman wtih a history of HTN, hyperlipidemia, CAD, stent, PSVT, breast cancer who presented to the ED with weakness, was found to have hyponatremia and UTI, and developed acute respiratory failure. 1. Acute hypoxic and hypercapnic respiratory failure secondary to COPD exacerbation and pneumonia - s/p intubation - extubated 08/28 - Continue prednisone, Spiriva, Symbicort, albuterol nebs as needed - Completed ceftriaxone, Zithromax - Continue oxygen to maintain saturation >90% 2. Demand ischemia 3. PSVT - No further episodes noted 4. Anemia - Likely secondary to sepsis - Continue to monitor hgb and transfuse as needed 5. Thrombocytopenia - Likely secondary to sepsis, heparin - Heparin discontinued - Continue to monitor platelets 6. CAD, history of PCI and stent - Continue aspirin, Bystolic, Crestor, Trilipix 7. HTN - Continue Bystolic, Norvasc, Altace 8. Hyperlipidemia - Continue Crestor, Trilipix 9. Diastolic dysfunction - No evidence of acute diastolic heart failure 10. Breast cancer 11. Disposition - Continue PT - Will need short term rehab/pulmonary rehab at discharge Visit type - Emergency Visit Emergency Visit: Yes ED Registration Date: 08/26/18 Care time: The patient presented to the Emergency Department on the above date and was hospitalized for further evaluation of their emergent condition. - New Patient This patient is new to me today: No - Critical Care Critical Care patient: No - Discharge Referral Referred to [facility] No
[2018-09-10 06:57] LABS: HEMATOCRIT 27.1 % (32.4-45.2); HEMOGLOBIN 9.1 GM/dL (10.7-15.3); MCH 33.8 pg (25.7-33.7); MCHC 33.6 g/dl (32.0-36.0); MEAN CELL VOLUME 100.6 fl (80-96); MEAN PLT VOLUME 10.6 fl (7.5-11.1); PLATELET COUNT 106 K/MM3 (134-434); RDW 15.3 % (11.6-15.6); WHITE BLOOD COUNT 12.8 K/mm3 (4.0-10.0)
[2018-09-10 07:29] LABS: ANION GAP 8 MMOL/L (8-16); BLOOD UREA NITROGEN 47 mg/dL (7-18); CALCIUM 8.8 mg/dL (8.5-10.1); CHLORIDE 105 mmol/L (98-107); CO2 32 mmol/L (21-32); CREATININE 0.9 mg/dL (0.55-1.3); GLUCOSE,RANDOM 166 mg/dL (74-106); POTASSIUM 3.6 mmol/L (3.5-5.1); SODIUM 145 mmol/L (136-145)
--- NOTE | 2018-09-10 09:03 | PN ---
Progress Note, Physician History of Present Illness: Breathing improving. BP control improved. Sensorium improved. - Current Medication List Current Medications: Active Medications Acetaminophen (Tylenol Oral Solution -) 650 mg PO Q6H PRN PRN Reason: FEVER Albuterol Sulfate (Ventolin 0.083% Nebulizer Soln -) 1 amp NEB Q4H PRN PRN Reason: SHORT OF BREATH/WHEEZING Last Admin: 09/09/18 10:50 Dose: 1 amp Alprazolam (Xanax -) 0.25 mg PO Q6H PRN PRN Reason: ANXIETY Last Admin: 09/09/18 00:42 Dose: 0.25 mg Amlodipine Besylate (Norvasc -) 5 mg PO DAILY [facility] Last Admin: 09/09/18 10:18 Dose: 5 mg Aspirin (Asa -) 81 mg PO DAILY [facility] Last Admin: 09/09/18 10:18 Dose: 81 mg Budesonide/Formoterol Fumarate (Symbicort 160/4.5mcg -) 2 puff IH BID [facility] Last Admin: 09/09/18 22:02 Dose: 2 puff Chlorhexidine Gluconate (Hibiclens For Decolonization -) 1 applic TP [facility] Last Admin: 09/09/18 22:01 Dose: Not Given Fenofibric Acid (Trilipix -) 135 mg PO DAILY [facility] Last Admin: 09/09/18 10:20 Dose: Not Given Multivitamins/Minerals/Vitamin C (Tab-A-Vit -) 1 tab PO DAILY [facility] Last Admin: 09/09/18 10:18 Dose: 1 tab Nebivolol (Bystolic -) 5 mg PO DAILY [facility] Last Admin: 09/09/18 10:18 Dose: 5 mg Prednisone (Deltasone -) 50 mg PO BID [facility] Last Admin: 09/09/18 22:00 Dose: 50 mg Ramipril (Altace -) 10 mg PO BID [facility] Last Admin: 09/09/18 22:00 Dose: 10 mg Rosuvastatin Calcium (Crestor -) 10 mg PO HS [facility] Last Admin: 09/09/18 22:00 Dose: 10 mg Tiotropium [place] (Spiriva Respimat) 2 puff IH DAILY [facility] Last Admin: 09/09/18 10:20 Dose: 2 puff - Objective Vital Signs: Vital Signs Temperature 97.8 F 09/10/18 06:00 Pulse Rate 64 03/04/19 06:00 Respiratory Rate 20 09/10/18 06:00 Blood Pressure 146/76 09/10/18 06:00 O2 Sat by Pulse Oximetry (%) 96 09/10/18 06:00 Constitutional: Yes: No Distress, Calm, Thin Neck: Yes: Supple Cardiovascular: Yes: Regular Rate and Rhythm Respiratory: Yes: Regular, Diminished, On Nasal O2 Gastrointestinal: Yes: Normal Bowel Sounds, Soft Edema: No Labs: CBC, BMP 09/10/18 05:30 09/10/18 05:30 INR, PTT INR 1.23 (0.83-1.09) H 08/27/18 21:00 - ....Imaging EKG: Report Reviewed (Tele: NSR) Problem List - Problems (1) Demand ischemia Code(s): I24.8 - OTHER FORMS OF ACUTE ISCHEMIC HEART DISEASE (2) Acute respiratory failure Code(s): J96.00 - ACUTE RESPIRATORY FAILURE, UNSP W HYPOXIA OR HYPERCAPNIA (3) CAD (coronary artery disease) Code(s): I25.10 - ATHSCL HEART DISEASE OF [place] CORONARY ARTERY W/O ANG PCTRS Qualifiers: Coronary Disease-Associated Artery/Lesion type: [place] artery [place] vs. transplanted heart: [place] heart Associated angina: without angina Qualified Code(s): I25.10 - Atherosclerotic heart disease of [place] coronary artery without angina pectoris (4) COPD exacerbation Code(s): J44.1 - CHRONIC OBSTRUCTIVE PULMONARY DISEASE W (ACUTE) EXACERBATION (5) HLD (hyperlipidemia) Code(s): E78.5 - HYPERLIPIDEMIA, UNSPECIFIED Qualifiers: Hyperlipidemia type: mixed hyperlipidemia Qualified Code(s): E78.2 - Mixed hyperlipidemia (6) HTN (hypertension) Code(s): I10 - ESSENTIAL (PRIMARY) HYPERTENSION Qualifiers: Hypertension type: essential hypertension Qualified Code(s): I10 - Essential (primary) hypertension (7) PSVT (paroxysmal supraventricular tachycardia) Code(s): I47.1 - SUPRAVENTRICULAR TACHYCARDIA (8) UTI (urinary tract infection) Code(s): N39.0 - URINARY TRACT INFECTION, SITE NOT SPECIFIED Qualifiers: Urinary tract infection type: site unspecified Hematuria presence: without hematuria Qualified Code(s): N39.0 - Urinary tract infection, site not specified Assessment/Plan 08/28/2018 Echo: Low normal LV fxn, normal RV size and fxn, mild AR 1. Post acute hypoxic respiratory failure due to acute exacerbation of COPD +/- pneumonia 2. CAD post PCI/stent angina pectoris with demand ischemic injury 3. Diastolic LV dysfunction with clinical class 0 NYHA classification LV failure 4. PSVT currently in sinus rhythm 5. HTN, BP elevated 6. Hypercholesterolemia 7. History of breast carcinoma 8. Anemia 9. Acute delirium PLAN: 1. Completed antibiotic coverage per ID, O2 as needed to maintain saturation Spo2 >90% , BD TX , prednisone taper, Bipap as needed 2. Continue ASA 81 qd, Crestor 10 qhs, Trilipix 135 qd 3. Increase Bystolic 10 qd, Norvasc 5 qd and ramipril 5 bid as hemodynamics tolerate 4. PT->SNF [employer] Associate: Severiano Bond MD. [facility]
[2018-09-10] MEDS ORDERED: PT OWN MED DRAWER 7, Y5N ONE (09:35)
[2018-09-10] MEDS: amLODIPine BESYLATE 5 MG TABLET (FP) PO SCH (09:52)
[2018-09-10] MEDS: NEBIVOLOL 10 MG TABLET (FP) PO SCH (09:52)
[2018-09-10] MEDS: RAMIPRIL 5 MG CAPSULE (FP) PO SCH ×2 (09:52→23:35)
[2018-09-10] MEDS: predniSONE 20 MG TABLET (UD) PO SCH ×2 (09:52→23:35)
[2018-09-10] MEDS: MULTIVITAMINS (DAILY MVI) TABLET (FP) PO SCH (09:53)
[2018-09-10] MEDS: ASPIRIN 81 MG CHEWABLE TABLETS PO SCH (09:53)
[2018-09-10] MEDS: BUDESONIDE/FORMETEROL FUMARATE 160/4.5 mcg INHALER IH SCH ×2 (10:04→23:35)
[2018-09-10] MEDS: TIOTROPIUM BROMIDE 2.5 MCG (SPIRIVA) RESPIMAT INHALER IH SCH (10:04)
--- NOTE | 2018-09-10 11:11 | PN ---
Progress Note, Physician History of Present Illness: PULMONARY ALERT,OOB-CHAIR,COMFORTABLE,-RESP DISTRESS - Current Medication List Current Medications: Active Medications Acetaminophen (Tylenol Oral Solution -) 650 mg PO Q6H PRN PRN Reason: FEVER Albuterol Sulfate (Ventolin 0.083% Nebulizer Soln -) 1 amp NEB Q4H PRN PRN Reason: SHORT OF BREATH/WHEEZING Last Admin: 09/09/18 10:50 Dose: 1 amp Alprazolam (Xanax -) 0.25 mg PO Q6H PRN PRN Reason: ANXIETY Last Admin: 09/09/18 00:42 Dose: 0.25 mg Amlodipine Besylate (Norvasc -) 5 mg PO DAILY [facility] Last Admin: 09/10/18 09:52 Dose: 5 mg Aspirin (Asa -) 81 mg PO DAILY [facility] Last Admin: 09/10/18 09:53 Dose: 81 mg Budesonide/Formoterol Fumarate (Symbicort 160/4.5mcg -) 2 puff IH BID [facility] Last Admin: 09/09/18 22:02 Dose: 2 puff Chlorhexidine Gluconate (Hibiclens For Decolonization -) 1 applic TP [facility] Last Admin: 09/09/18 22:01 Dose: Not Given Fenofibric Acid (Trilipix -) 135 mg PO DAILY [facility] Last Admin: 09/09/18 10:20 Dose: Not Given Multivitamins/Minerals/Vitamin C (Tab-A-Vit -) 1 tab PO DAILY [facility] Last Admin: 09/10/18 09:53 Dose: 1 tab Nebivolol (Bystolic -) 10 mg PO DAILY [facility] Last Admin: 09/10/18 09:52 Dose: 10 mg Prednisone (Deltasone -) 50 mg PO BID [facility] Last Admin: 09/10/18 09:52 Dose: 50 mg Ramipril (Altace -) 10 mg PO BID [facility] Last Admin: 09/10/18 09:52 Dose: 10 mg Rosuvastatin Calcium (Crestor -) 10 mg PO HS [facility] Last Admin: 09/09/18 22:00 Dose: 10 mg Tiotropium [place] (Spiriva Respimat) 2 puff IH DAILY [facility] Last Admin: 09/09/18 10:20 Dose: 2 puff - Objective Vital Signs: Vital Signs Temperature 97.3 F L 09/10/18 10:00 Pulse Rate 62 09/10/18 10:00 Respiratory Rate 20 09/10/18 10:00 Blood Pressure 152/63 09/10/18 10:00 O2 Sat by Pulse Oximetry (%) 96 09/10/18 09:00 Constitutional: Yes: Calm, Thin Eyes: Yes: WNL HENT: Yes: WNL Neck: Yes: WNL Cardiovascular: Yes: Regular Rate and Rhythm, S1, S2 Respiratory: Yes: Rhonchi (FEW RHONCHI) Gastrointestinal: Yes: Normal Bowel Sounds, Soft Extremities: Yes: WNL Edema: No Labs: CBC, BMP 09/10/18 05:30 09/10/18 05:30 INR, PTT INR 1.23 (0.83-1.09) H 08/27/18 21:00 Problem List - Problems (1) Acute respiratory failure with hypoxia and hypercapnia Code(s): J96.01 - ACUTE RESPIRATORY FAILURE WITH HYPOXIA; J96.02 - ACUTE RESPIRATORY FAILURE WITH HYPERCAPNIA (2) Pneumonia Code(s): J18.9 - PNEUMONIA, UNSPECIFIED ORGANISM (3) Acute respiratory failure Code(s): J96.00 - ACUTE RESPIRATORY FAILURE, UNSP W HYPOXIA OR HYPERCAPNIA (4) Breast CA Code(s): C50.919 - MALIGNANT NEOPLASM OF UNSP SITE OF UNSPECIFIED FEMALE BREAST (5) COPD exacerbation Code(s): J44.1 - CHRONIC OBSTRUCTIVE PULMONARY DISEASE W (ACUTE) EXACERBATION (6) Demand ischemia Code(s): I24.8 - OTHER FORMS OF ACUTE ISCHEMIC HEART DISEASE (7) HLD (hyperlipidemia) Code(s): E78.5 - HYPERLIPIDEMIA, UNSPECIFIED Qualifiers: Hyperlipidemia type: mixed hyperlipidemia Qualified Code(s): E78.2 - Mixed hyperlipidemia (8) HTN (hypertension) Code(s): I10 - ESSENTIAL (PRIMARY) HYPERTENSION Qualifiers: Hypertension type: essential hypertension Qualified Code(s): I10 - Essential (primary) hypertension Assessment/Plan ASSESSMENT AND PLAN: Acute Hypoxic and Hypercapneic Respiratory Failure improving Acute COPD Exacerbation improving Pneumonia LV Diastolic Dysfunction PSVT HTN Hyperlipidemia h/o Breast Ca - antibiotics - Prednisone taper - inhaled bronchodilators standing and PRN - BiPAP as needed to assist in work of breathing - O2 to keep Spo2 >90% - DVT/GI prophylaxis - pulse oximetry monitoring - short term inpatient pulmonary rehab post discharge DR BEAL
[2018-09-10] MEDS: FENOFIBRIC ACID 135 MG CAP PO SCH (12:04)
--- NOTE | 2018-09-10 12:47 | PN ---
Physical Exam: SUBJECTIVE: Patient seen and examined. She is sitting in a chair and has no complaints. She appears comfortable and is less confused than yesterday. OBJECTIVE: Vital Signs Period Temp Pulse Resp BP Sys/Prakash Pulse Ox Last 24 Hr 97.3 F-98.7 F 62-82 20-20 140-163/57-76 95-96 GENERAL: The patient is awake, alert, confused, in no acute distress. LUNGS: Breath sounds diminished. HEART: Regular rate and rhythm, S1, S2 without murmur, rub or gallop. ABDOMEN: Soft, nontender, nondistended, normoactive bowel sounds, no guarding, no rebound, no hepatosplenomegaly, no masses. EXTREMITIES: 2+ pulses, warm, well-perfused, no edema. Laboratory Results - last 24 hr 09/10/18 09/10/18 05:30 05:30 WBC 12.8 H RBC 2.70 L Hgb 9.1 L Hct 27.1 L MCV 100.6 H MCH 33.8 H MCHC 33.6 RDW 15.3 Plt Count 106 L D MPV 10.6 Sodium 145 Potassium 3.6 Chloride 105 Carbon Dioxide 32 Anion Gap 8 BUN 47 H Creatinine 0.9 Creat Clearance w eGFR > 60 Random Glucose 166 H Calcium 8.8 Active Medications Generic Name Dose Route Start Last Admin Trade Name Freq PRN Reason Stop Dose Admin Acetaminophen 650 mg 09/06/18 11:50 Tylenol Oral Solution - PO Q6H PRN FEVER Albuterol Sulfate 1 amp 09/08/18 12:57 09/09/18 10:50 Ventolin 0.083% Nebulizer Soln - NEB 1 amp Q4H PRN Administration SHORT OF BREATH/WHEEZING Alprazolam 0.25 mg 09/06/18 11:50 09/09/18 00:42 Xanax - PO 0.25 mg Q6H PRN Administration ANXIETY Amlodipine Besylate 5 mg 09/05/18 16:00 09/10/18 09:52 Norvasc - PO 5 mg DAILY [facility] Administration Aspirin 81 mg 09/07/18 10:00 09/10/18 09:53 Asa - PO 81 mg DAILY [facility] Administration Budesonide/Formoterol Fumarate 2 puff 09/08/18 13:00 09/10/18 10:04 Symbicort 160/4.5mcg - IH 2 puff BID [facility] Administration Chlorhexidine Gluconate 1 applic 09/06/18 22:00 09/09/18 22:01 Hibiclens For Decolonization - TP Not Given HS [facility] Fenofibric Acid 135 mg 09/07/18 10:00 09/10/18 12:04 Trilipix - PO Not Given DAILY [facility] Multivitamins/Minerals/Vitamin C 1 tab 09/07/18 10:00 09/10/18 09:53 Tab-A-Vit - PO 1 tab DAILY [facility] Administration Nebivolol 10 mg 09/10/18 09:05 09/10/18 09:52 Bystolic - PO 10 mg DAILY [facility] Administration Prednisone 40 mg 09/10/18 11:12 Deltasone - PO BID [facility] Ramipril 10 mg 09/06/18 22:00 09/10/18 09:52 Altace - PO 10 mg BID [facility] Administration Rosuvastatin Calcium 10 mg 09/06/18 22:00 09/09/18 22:00 Crestor - PO 10 mg HS [facility] Administration Tiotropium [place] 2 puff 09/08/18 13:00 09/10/18 10:04 Spiriva Respimat IH 2 puff DAILY [facility] Administration ASSESSMENT/PLAN: This is a 78 year old woman wtih a history of HTN, hyperlipidemia, CAD, stent, PSVT, breast cancer who presented to the ED with weakness, was found to have hyponatremia and UTI, and developed acute respiratory failure. 1. Acute hypoxic and hypercapnic respiratory failure secondary to COPD exacerbation and pneumonia - s/p intubation - extubated 08/28 - Continue prednisone, Spiriva, Symbicort, albuterol nebs as needed - Completed ceftriaxone, Zithromax - Continue oxygen to maintain saturation >90% 2. Demand ischemia 3. PSVT - No further episodes noted 4. Anemia - Likely secondary to sepsis - Hgb is stable - Continue to monitor hgb and transfuse as needed 5. Thrombocytopenia - Likely secondary to sepsis, heparin - Improving - Continue to monitor platelets 6. CAD, history of PCI and stent - Continue aspirin, Bystolic, Crestor, Trilipix 7. HTN - Continue Bystolic, Norvasc, Altace 8. Hyperlipidemia - Continue Crestor, Trilipix 9. Diastolic dysfunction - No evidence of acute diastolic heart failure 10. Breast cancer 11. Disposition - Continue PT - Will need short term rehab/pulmonary rehab at discharge Visit type - Emergency Visit Emergency Visit: Yes ED Registration Date: 08/26/18 Care time: The patient presented to the Emergency Department on the above date and was hospitalized for further evaluation of their emergent condition. - New Patient This patient is new to me today: No - Critical Care Critical Care patient: No - Discharge Referral Referred to [facility] No
--- NOTE | 2018-09-10 14:38 | CONSULT ---
Consultation: REQUESTING PROVIDER: Dr. Pelaez CONSULT REQUEST: We have been asked to medically evaluate this patient for thrombocytopenia HISTORY OF PRESENT ILLNESS: This is a 78 year old woman with a significant history of CAD, COPD,breast ca ( stage 1, RT in 1999), who came in with acute hypoxic respiratory failure and septic shock due to possible PNA, s/p intubation, called to evaluate for thrombocytopenia. Platelets range from 84-175 on this admission. She is being treated with antibiotics and o2 supp. Heparin has been d/c'd in suspicion for HIT. PMHx of: HTN, HLD, COPD, dCHF, CAD s/p Stent, L- Breast Ca (Stage 1, RT, 1999), Vaginal Cyst rupture Social hx; drinks 1 drinks daily; 1 cigarette daily; no drug use REVIEW OF SYSTEMS: CONSTITUTIONAL: Absent: fever, chills, diaphoresis, generalized weakness, malaise, loss of appetite, weight change HEENT: Absent: rhinorrhea, nasal congestion, throat pain, throat swelling, difficulty swallowing, mouth swelling, ear pain, eye pain, visual changes CARDIOVASCULAR: Absent: chest pain, syncope, palpitations, irregular heart rate, lightheadedness , peripheral edema RESPIRATORY: Absent: cough, shortness of breath, dyspnea with exertion, orthopnea, wheezing, stridor, hemoptysis GASTROINTESTINAL: Absent: abdominal pain, abdominal distension, nausea, vomiting, diarrhea, constipation, melena, hematochezia GENITOURINARY: Absent: dysuria, frequency, urgency, hesitancy, hematuria, flank pain, genital pain MUSCULOSKELETAL: Absent: myalgia, arthralgia, joint swelling, back pain, neck pain SKIN: Absent: rash, itching, pallor HEMATOLOGIC/IMMUNOLOGIC: Absent: easy bleeding, easy bruising, lymphadenopathy, frequent infections ENDOCRINE: Absent: unexplained weight gain, unexplained weight loss, heat intolerance, cold intolerance NEUROLOGIC: Absent: headache, focal weakness or paresthesias, dizziness, unsteady gait, seizure, mental status changes, bladder or bowel incontinence PSYCHIATRIC: Absent: anxiety, depression, suicidal or homicidal ideation, hallucinations. PHYSICAL EXAMINATION Vital Signs - 24 hr 09/09/18 09/09/18 09/09/18 17:00 21:00 22:00 Temperature 97.9 F 97.9 F 97.9 F Pulse Rate 72 70 70 Respiratory 20 20 20 Rate Blood Pressure 142/62 145/57 L 145/57 L O2 Sat by Pulse 95 95 Oximetry (%) 09/10/18 09/10/18 09/10/18 02:00 06:00 09:00 Temperature 98.7 F 97.8 F Pulse Rate 82 64 Respiratory 20 20 20 Rate Blood Pressure 163/75 146/76 O2 Sat by Pulse 96 96 Oximetry (%) 09/10/18 10:00 Temperature 97.3 F L Pulse Rate 62 Respiratory 20 Rate Blood Pressure 152/63 O2 Sat by Pulse Oximetry (%) GENERAL: flat affect; shaky/anxious?; sitting up in chair on NC HEAD: Normal with no signs of trauma. EYES: Pupils equal, round and reactive to light, extraocular movements intact, sclera anicteric, conjunctiva clear. No lid lag. EARS, NOSE, THROAT: Ears normal, nares patent, oropharynx clear without exudates. Moist mucous membranes. NECK: Normal range of motion, supple without lymphadenopathy, JVD, or masses. Breast/axilla; no lumps or masses or nipple discharge LUNGS:bilateral wheeze; congestion HEART: Regular rate and rhythm, normal S1 and S2 without murmur, rub or gallop. ABDOMEN: Soft, nontender, not distended, normoactive bowel sounds, no guarding, no rebound, no masses. No hepatomegaly or splenomegaly. MUSCULOSKELETAL: Normal range of motion at all joints. No bony deformities or tenderness. No CVA tenderness. UPPER EXTREMITIES: 2+ pulses, warm, well-perfused. No cyanosis. No clubbing. Cap refill <2 seconds. No peripheral edema. LOWER EXTREMITIES: 2+ pulses, warm, well-perfused. No calf tenderness. No peripheral edema. NEUROLOGICAL: Cranial nerves II-XII intact. Normal speech. PSYCHIATRIC: flat affect; does not make eye contact; looks anxious SKIN: scattered eccymosis; scattered skin tears; Laboratory Results - last 24 hr 09/10/18 09/10/18 05:30 05:30 WBC 12.8 H RBC 2.70 L Hgb 9.1 L Hct 27.1 L MCV 100.6 H MCH 33.8 H MCHC 33.6 RDW 15.3 Plt Count 106 L D MPV 10.6 Sodium 145 Potassium 3.6 Chloride 105 Carbon Dioxide 32 Anion Gap 8 BUN 47 H Creatinine 0.9 Creat Clearance w eGFR > 60 Random Glucose 166 H Calcium 8.8 Active Medications Generic Name Dose Route Start Last Admin Trade Name Freq PRN Reason Stop Dose Admin Acetaminophen 650 mg 09/06/18 11:50 Tylenol Oral Solution - PO Q6H PRN FEVER Albuterol Sulfate 1 amp 09/08/18 12:57 09/09/18 10:50 Ventolin 0.083% Nebulizer Soln - NEB 1 amp Q4H PRN Administration SHORT OF BREATH/WHEEZING Alprazolam 0.25 mg 09/06/18 11:50 09/09/18 00:42 Xanax - PO 0.25 mg Q6H PRN Administration ANXIETY Amlodipine Besylate 5 mg 09/05/18 16:00 09/10/18 09:52 Norvasc - PO 5 mg DAILY [facility] Administration Aspirin 81 mg 09/07/18 10:00 09/10/18 09:53 Asa - PO 81 mg DAILY [facility] Administration Budesonide/Formoterol Fumarate 2 puff 09/08/18 13:00 09/10/18 10:04 Symbicort 160/4.5mcg - IH 2 puff BID [facility] Administration Chlorhexidine Gluconate 1 applic 09/06/18 22:00 09/09/18 22:01 Hibiclens For Decolonization - TP Not Given HS [facility] Fenofibric Acid 135 mg 09/07/18 10:00 09/10/18 12:04 Trilipix - PO Not Given DAILY [facility] Multivitamins/Minerals/Vitamin C 1 tab 09/07/18 10:00 09/10/18 09:53 Tab-A-Vit - PO 1 tab DAILY [facility] Administration Nebivolol 10 mg 09/10/18 09:05 09/10/18 09:52 Bystolic - PO 10 mg DAILY [facility] Administration Prednisone 40 mg 09/10/18 11:12 Deltasone - PO BID [facility] Ramipril 10 mg 09/06/18 22:00 09/10/18 09:52 Altace - PO 10 mg BID [facility] Administration Rosuvastatin Calcium 10 mg 09/06/18 22:00 09/09/18 22:00 Crestor - PO 10 mg HS [facility] Administration Tiotropium [place] 2 puff 09/08/18 13:00 09/10/18 10:04 Spiriva Respimat IH 2 puff DAILY [facility] Administration ASSESSMENT/PLAN: This is a 78 year old female Thrombocytopenia Acute hypoxic respiratory failure secondary to PNA/COPD acute COPD exacerbation septic shock; now resolving transaminitis CHF HTN HLD hx breast CA -thrombocytopenia with anemia (resolving)may be secondary to liver cirrohsis? ; splenomegaly?; hx of alcoholism; abdominal US r/o hepatosplenomegaly; steatosis ; possible ineffective hematopoesis due to sepsis -r/o HIT; baseline platelets around 150s-170s; now 84; was on heparin drip on ; unknown for how long -heparin d/c'd -tsh, t4, b12, folate, iron studies, abdominal US Dispo: We will continue to follow the patient. Thank you for this consultative opportunity. Visit type - Emergency Visit Emergency Visit: Yes ED Registration Date: 08/26/18 Care time: The patient presented to the Emergency Department on the above date and was hospitalized for further evaluation of their emergent condition. - New Patient This patient is new to me today: Yes Date on this admission: 09/10/18 - Critical Care Critical Care patient: No
--- NOTE | 2018-09-10 21:52 | PN ---
Teaching Attending Note Name of Resident: Berta Mcdonald ATTENDING PHYSICIAN STATEMENT I saw and evaluated the patient. I reviewed the resident's note and discussed the case with the resident. I agree with the resident's findings and plan as documented. ASSESSMENT AND PLAN: This is a 78 year old female Thrombocytopenia Acute hypoxic respiratory failure secondary to PNA/COPD acute COPD exacerbation septic shock; now resolving transaminitis CHF HTN HLD hx breast CA Dementia --severe -thrombocytopenia with anemia (resolving)may be secondary to recent pneuminia/ copd exacerbation -macrocytic anemia--tsh, t4, b12, folate, iron studies, abdominal US
[2018-09-10] MEDS: ROSUVASTATIN CA 10 MG TABLET (FP) PO SCH (23:35)
[2018-09-11] MEDS: CHLORHEXIDINE GLUCONATE 4% CLEANSER FOR DECOLONIZATION TP SCH ×2 (03:49→21:58)
[2018-09-11 06:59] LABS: BASO % 0.1 % (0-2.0); HEMATOCRIT 22.7 % (32.4-45.2); HEMOGLOBIN 7.9 GM/dL (10.7-15.3); MCHC 34.8 g/dl (32.0-36.0); MEAN CELL VOLUME 100.4 fl (80-96); MEAN PLT VOLUME 9.9 fl (7.5-11.1); MONO % 4.3 % (3.8-10.2); NEUT % 85.6 % (42.8-82.8); PLATELET COUNT 97 K/MM3 (134-434); RBC 2.26 M/mm3 (3.60-5.2); RDW 15.2 % (11.6-15.6); WHITE BLOOD COUNT 11.3 K/mm3 (4.0-10.0)
[2018-09-11 07:09] LABS: INR 1.13 (0.83-1.09); PROTHROMBIN TIME (PATIENT) 13.4 SEC (9.7-13.0)
[2018-09-11 07:49] LABS: ANION GAP 5 MMOL/L (8-16); BLOOD UREA NITROGEN 42 mg/dL (7-18); CALCIUM 8.3 mg/dL (8.5-10.1); CHLORIDE 107 mmol/L (98-107); CO2 33 mmol/L (21-32); CREATININE 0.9 mg/dL (0.55-1.3); GLUCOSE,RANDOM 83 mg/dL (74-106); POTASSIUM 3.6 mmol/L (3.5-5.1); SODIUM 145 mmol/L (136-145)
[2018-09-11] MEDS: NEBIVOLOL 10 MG TABLET (FP) PO SCH (10:41)
[2018-09-11] MEDS: amLODIPine BESYLATE 5 MG TABLET (FP) PO SCH (10:41)
[2018-09-11] MEDS: MULTIVITAMINS (DAILY MVI) TABLET (FP) PO SCH (10:41)
[2018-09-11] MEDS: RAMIPRIL 5 MG CAPSULE (FP) PO SCH ×2 (10:41→21:57)
[2018-09-11] MEDS: ASPIRIN 81 MG CHEWABLE TABLETS PO SCH (10:42)
[2018-09-11] MEDS: predniSONE 20 MG TABLET (UD) PO SCH ×2 (10:42→21:58)
[2018-09-11] MEDS: FENOFIBRIC ACID 135 MG CAP PO SCH (10:43)
--- NOTE | 2018-09-11 10:55 | PN ---
Progress Note, Physician History of Present Illness: PULMONARY ALERT,COMFORTABLE,-RESP DISTRESS - Current Medication List Current Medications: Active Medications Acetaminophen (Tylenol Oral Solution -) 650 mg PO Q6H PRN PRN Reason: FEVER Albuterol Sulfate (Ventolin 0.083% Nebulizer Soln -) 1 amp NEB Q4H PRN PRN Reason: SHORT OF BREATH/WHEEZING Last Admin: 09/09/18 10:50 Dose: 1 amp Alprazolam (Xanax -) 0.25 mg PO Q6H PRN PRN Reason: ANXIETY Last Admin: 09/09/18 00:42 Dose: 0.25 mg Amlodipine Besylate (Norvasc -) 5 mg PO DAILY [facility] Last Admin: 09/10/18 09:52 Dose: 5 mg Aspirin (Asa -) 81 mg PO DAILY [facility] Last Admin: 09/10/18 09:53 Dose: 81 mg Budesonide/Formoterol Fumarate (Symbicort 160/4.5mcg -) 2 puff IH BID [facility] Last Admin: 09/10/18 23:35 Dose: 2 puff Chlorhexidine Gluconate (Hibiclens For Decolonization -) 1 applic TP [facility] Last Admin: 09/11/18 03:49 Dose: Not Given Fenofibric Acid (Trilipix -) 135 mg PO DAILY [facility] Last Admin: 09/10/18 12:04 Dose: Not Given Multivitamins/Minerals/Vitamin C (Tab-A-Vit -) 1 tab PO DAILY [facility] Last Admin: 09/10/18 09:53 Dose: 1 tab Nebivolol (Bystolic -) 10 mg PO DAILY [facility] Last Admin: 09/10/18 09:52 Dose: 10 mg Prednisone (Deltasone -) 40 mg PO BID [facility] Last Admin: 09/10/18 23:35 Dose: 40 mg Ramipril (Altace -) 10 mg PO BID [facility] Last Admin: 09/10/18 23:35 Dose: 10 mg Rosuvastatin Calcium (Crestor -) 10 mg PO HS [facility] Last Admin: 09/10/18 23:35 Dose: 10 mg Tiotropium [place] (Spiriva Respimat) 2 puff IH DAILY [facility] Last Admin: 09/10/18 10:04 Dose: 2 puff - Objective Vital Signs: Vital Signs Temperature 98.1 F 09/11/18 05:47 Pulse Rate 74 09/11/18 05:47 Respiratory Rate 20 09/11/18 05:47 Blood Pressure 140/53 L 09/11/18 05:47 O2 Sat by Pulse Oximetry (%) 98 09/10/18 20:15 Constitutional: Yes: Calm, Thin Eyes: Yes: WNL HENT: Yes: WNL Neck: Yes: WNL Cardiovascular: Yes: Regular Rate and Rhythm, S1, S2 Respiratory: Yes: Rales (FEW CRACKLES) Gastrointestinal: Yes: Normal Bowel Sounds, Soft Extremities: Yes: WNL Edema: No Labs: CBC, BMP 09/11/18 05:30 09/11/18 05:30 INR, PTT INR 1.13 (0.83-1.09) H 09/11/18 05:30 Problem List - Problems (1) Acute respiratory failure with hypoxia and hypercapnia Code(s): J96.01 - ACUTE RESPIRATORY FAILURE WITH HYPOXIA; J96.02 - ACUTE RESPIRATORY FAILURE WITH HYPERCAPNIA (2) Pneumonia Code(s): J18.9 - PNEUMONIA, UNSPECIFIED ORGANISM (3) Acute respiratory failure Code(s): J96.00 - ACUTE RESPIRATORY FAILURE, UNSP W HYPOXIA OR HYPERCAPNIA (4) Breast CA Code(s): C50.919 - MALIGNANT NEOPLASM OF UNSP SITE OF UNSPECIFIED FEMALE BREAST (5) COPD exacerbation Code(s): J44.1 - CHRONIC OBSTRUCTIVE PULMONARY DISEASE W (ACUTE) EXACERBATION (6) Demand ischemia Code(s): I24.8 - OTHER FORMS OF ACUTE ISCHEMIC HEART DISEASE (7) HLD (hyperlipidemia) Code(s): E78.5 - HYPERLIPIDEMIA, UNSPECIFIED Qualifiers: Hyperlipidemia type: mixed hyperlipidemia Qualified Code(s): E78.2 - Mixed hyperlipidemia (8) HTN (hypertension) Code(s): I10 - ESSENTIAL (PRIMARY) HYPERTENSION Qualifiers: Hypertension type: essential hypertension Qualified Code(s): I10 - Essential (primary) hypertension Assessment/Plan ASSESSMENT AND PLAN: Acute Hypoxic and Hypercapneic Respiratory Failure improving Acute COPD Exacerbation improving Pneumonia LV Diastolic Dysfunction PSVT HTN Hyperlipidemia h/o Breast Ca Anemia Thrombocytopenia - Prednisone taper - inhaled bronchodilators standing and PRN - BiPAP as needed to assist in work of breathing - O2 to keep Spo2 >90% - DVT/GI prophylaxis - Monitor h+h,plt ct - normal transfusion threshold - short term inpatient pulmonary rehab post discharge - chest x-ray today DR BEAL
--- NOTE | 2018-09-11 11:00 | PN ---
Physical Exam: SUBJECTIVE: Patient seen and examined at the bedside. OBJECTIVE: breathing improving, requires supplemental oxygen of nasal cannula and bipap anemia and thrombocytopenia, iron studies pending Vital Signs Period Temp Pulse Resp BP Sys/Prakash Pulse Ox Last 24 Hr 97.5 F-98.8 F 62-74 16-20 140-151/53-68 98 GENERAL: The patient is awake, alert, episodes of confusion HEAD: Normal with no signs of trauma. EYES: PERRL, extraocular movements intact, sclera anicteric, conjunctiva clear. No ptosis. ENT: Ears normal, nares patent, oropharynx clear without exudates, moist mucous membranes. NECK: Trachea midline, full range of motion, supple. LUNGS: scattered wheezing HEART: Regular rate and rhythm, S1, S2 without murmur, rub or gallop. ABDOMEN: Soft, nontender, nondistended, normoactive bowel sounds, no guarding, no rebound, no hepatosplenomegaly, no masses. EXTREMITIES: no edema. NEUROLOGICAL: Normal speech, gait not observed. PSYCH: Normal mood, normal affect. SKIN: bilateral lower ext skin tears Laboratory Results - last 24 hr 09/11/18 09/11/18 09/11/18 05:30 05:30 05:30 WBC 11.3 H RBC 2.26 L Hgb 7.9 L Hct 22.7 L D MCV 100.4 H MCH 35.0 H MCHC 34.8 RDW 15.2 Plt Count 97 L MPV 9.9 Absolute Neuts (auto) 9.7 H Neutrophils % 85.6 H Lymphocytes % 10.0 D Monocytes % 4.3 Eosinophils % 0.0 D Basophils % 0.1 Nucleated RBC % 0 PT with INR INR PTT (Actin FS) Sodium 145 Potassium 3.6 Chloride 107 Carbon Dioxide 33 H Anion Gap 5 L BUN 42 H Creatinine 0.9 Creat Clearance w eGFR > 60 Random Glucose 83 Calcium 8.3 L Ferritin 1981.2 H Vitamin B12 1327 H Serum Folate 19 H 09/11/18 05:30 WBC RBC Hgb Hct MCV MCH MCHC RDW Plt Count MPV Absolute Neuts (auto) Neutrophils % Lymphocytes % Monocytes % Eosinophils % Basophils % Nucleated RBC % PT with INR 13.40 H INR 1.13 H PTT (Actin FS) 22.0 L Sodium Potassium Chloride Carbon Dioxide Anion Gap BUN Creatinine Creat Clearance w eGFR Random Glucose Calcium Ferritin Vitamin B12 Serum Folate Active Medications Generic Name Dose Route Start Last Admin Trade Name Freq PRN Reason Stop Dose Admin Acetaminophen 650 mg 09/06/18 11:50 Tylenol Oral Solution - PO Q6H PRN FEVER Albuterol Sulfate 1 amp 09/08/18 12:57 09/09/18 10:50 Ventolin 0.083% Nebulizer Soln - NEB 1 amp Q4H PRN Administration SHORT OF BREATH/WHEEZING Alprazolam 0.25 mg 09/06/18 11:50 09/09/18 00:42 Xanax - PO 0.25 mg Q6H PRN Administration ANXIETY Amlodipine Besylate 5 mg 09/05/18 16:00 09/11/18 10:41 Norvasc - PO 5 mg DAILY [facility] Administration Aspirin 81 mg 09/07/18 10:00 09/11/18 10:42 Asa - PO 81 mg DAILY [facility] Administration Budesonide/Formoterol Fumarate 2 puff 09/08/18 13:00 09/10/18 23:35 Symbicort 160/4.5mcg - IH 2 puff BID [facility] Administration Chlorhexidine Gluconate 1 applic 09/06/18 22:00 09/11/18 03:49 Hibiclens For Decolonization - TP Not Given HS [facility] Fenofibric Acid 135 mg 09/07/18 10:00 09/11/18 10:43 Trilipix - PO 135 mg DAILY [facility] Administration Multivitamins/Minerals/Vitamin C 1 tab 09/07/18 10:00 09/11/18 10:41 Tab-A-Vit - PO 1 tab DAILY [facility] Administration Nebivolol 10 mg 09/10/18 09:05 09/11/18 10:41 Bystolic - PO 10 mg DAILY [facility] Administration Prednisone 40 mg 09/10/18 11:12 09/11/18 10:42 Deltasone - PO 40 mg BID [facility] Administration Ramipril 10 mg 09/06/18 22:00 09/11/18 10:41 Altace - PO 10 mg BID [facility] Administration Rosuvastatin Calcium 10 mg 09/06/18 22:00 09/10/18 23:35 Crestor - PO 10 mg HS [facility] Administration Tiotropium [place] 2 puff 09/08/18 13:00 09/10/18 10:04 Spiriva Respimat IH 2 puff DAILY [facility] Administration ASSESSMENT/PLAN: Patient is a 78 year old female with a significant past medical history of HTN, HLD, CAD s/p stent, L breast CA (stage 1) and COPD. Initially [facility] with UTI and hyponatremia on labs. Developed shortness of breath and intubated on admission for airway protection, extubated on 08/28/18. Hospitalization further complicated when patient had acute shortness of breath despite supplemental oxygen, duonebs and steriods and was monitored in the icu. She has been downgraded to tele and is currently improving. she is able to tolerate episodes of room with supplemental oxygen. Pulmonary: Acute hypoxic hypercapnic respiratory failure COPD exacerbation/pneumonia. Oxygen more stable. On prednisone taper and bipap. Maintain oxygen saturations above 90% Continuous pulse oxygen monitoring and noctural bipap. Card: Elevated troponins. On ASA 81mg, Crestor 10mg, Trilipix 135 qd cardiology following, notes reviewed. Hypertension: Bystolic 10 mg QD, Norvasc 5 mg QD and Ramipril 10 mg BID Hematology: Thrombocytopenia and anemia. Abdomen u/s shows fatty liver. Platelets below baseline. she is s/p heparin drip for elevated troponins iron studies, tsh t4, b12, folate Renal: Initially hyponatremic, now resolved. fen tolerating PO monitor electrolytes prophy: SCDs PPI. Visit type - Emergency Visit Emergency Visit: Yes ED Registration Date: 08/26/18 Care time: The patient presented to the Emergency Department on the above date and was hospitalized for further evaluation of their emergent condition. - New Patient This patient is new to me today: No - Critical Care Critical Care patient: No - Discharge Referral Referred to [facility] Med P.C.: No
--- NOTE | 2018-09-11 11:40 | PN ---
Physical Exam: SUBJECTIVE: Patient seen and examined OBJECTIVE: Vital Signs Period Temp Pulse Resp BP Sys/Prakash Pulse Ox Last 24 Hr 97.5 F-98.8 F 62-74 16-20 140-151/53-68 98 GENERAL: The patient is awake, alert, and fully oriented, in no acute distress. HEAD: Normal with no signs of trauma. EYES: PERRL, extraocular movements intact, sclera anicteric, conjunctiva clear. No ptosis. ENT: Ears normal, nares patent, oropharynx clear without exudates, moist mucous membranes. NECK: Trachea midline, full range of motion, supple. LUNGS: Breath sounds equal, clear to auscultation bilaterally, no wheezes, no crackles, no accessory muscle use. HEART: Regular rate and rhythm, S1, S2 without murmur, rub or gallop. ABDOMEN: Soft, nontender, nondistended, normoactive bowel sounds, no guarding, no rebound, no hepatosplenomegaly, no masses. EXTREMITIES: 2+ pulses, warm, well-perfused, no edema. NEUROLOGICAL: Cranial nerves II through XII grossly intact. Normal speech, gait not observed. PSYCH: Normal mood, normal affect. SKIN: Warm, dry, normal turgor, no rashes or lesions noted Laboratory Results - last 24 hr 09/11/18 09/11/18 09/11/18 05:30 05:30 05:30 WBC 11.3 H RBC 2.26 L Hgb 7.9 L Hct 22.7 L D MCV 100.4 H MCH 35.0 H MCHC 34.8 RDW 15.2 Plt Count 97 L MPV 9.9 Absolute Neuts (auto) 9.7 H Neutrophils % 85.6 H Lymphocytes % 10.0 D Monocytes % 4.3 Eosinophils % 0.0 D Basophils % 0.1 Nucleated RBC % 0 PT with INR INR PTT (Actin FS) Sodium 145 Potassium 3.6 Chloride 107 Carbon Dioxide 33 H Anion Gap 5 L BUN 42 H Creatinine 0.9 Creat Clearance w eGFR > 60 Random Glucose 83 Calcium 8.3 L Ferritin 1981.2 H Vitamin B12 1327 H Serum Folate 19 H 09/11/18 05:30 WBC RBC Hgb Hct MCV MCH MCHC RDW Plt Count MPV Absolute Neuts (auto) Neutrophils % Lymphocytes % Monocytes % Eosinophils % Basophils % Nucleated RBC % PT with INR 13.40 H INR 1.13 H PTT (Actin FS) 22.0 L Sodium Potassium Chloride Carbon Dioxide Anion Gap BUN Creatinine Creat Clearance w eGFR Random Glucose Calcium Ferritin Vitamin B12 Serum Folate Active Medications Generic Name Dose Route Start Last Admin Trade Name Freq PRN Reason Stop Dose Admin Acetaminophen 650 mg 09/06/18 11:50 Tylenol Oral Solution - PO Q6H PRN FEVER Albuterol Sulfate 1 amp 09/08/18 12:57 09/09/18 10:50 Ventolin 0.083% Nebulizer Soln - NEB 1 amp Q4H PRN Administration SHORT OF BREATH/WHEEZING Alprazolam 0.25 mg 09/06/18 11:50 09/09/18 00:42 Xanax - PO 0.25 mg Q6H PRN Administration ANXIETY Amlodipine Besylate 5 mg 09/05/18 16:00 09/11/18 10:41 Norvasc - PO 5 mg DAILY [facility] Administration Aspirin 81 mg 09/07/18 10:00 09/11/18 10:42 Asa - PO 81 mg DAILY [facility] Administration Budesonide/Formoterol Fumarate 2 puff 09/08/18 13:00 09/10/18 23:35 Symbicort 160/4.5mcg - IH 2 puff BID [facility] Administration Chlorhexidine Gluconate 1 applic 09/06/18 22:00 09/11/18 03:49 Hibiclens For Decolonization - TP Not Given HS [facility] Fenofibric Acid 135 mg 09/07/18 10:00 09/11/18 10:43 Trilipix - PO 135 mg DAILY [facility] Administration Multivitamins/Minerals/Vitamin C 1 tab 09/07/18 10:00 09/11/18 10:41 Tab-A-Vit - PO 1 tab DAILY [facility] Administration Nebivolol 10 mg 09/10/18 09:05 09/11/18 10:41 Bystolic - PO 10 mg DAILY [facility] Administration Prednisone 40 mg 09/10/18 11:12 09/11/18 10:42 Deltasone - PO 40 mg BID [facility] Administration Ramipril 10 mg 09/06/18 22:00 09/11/18 10:41 Altace - PO 10 mg BID [facility] Administration Rosuvastatin Calcium 10 mg 09/06/18 22:00 09/10/18 23:35 Crestor - PO 10 mg HS [facility] Administration Tiotropium [place] 2 puff 09/08/18 13:00 09/10/18 10:04 Spiriva Respimat IH 2 puff DAILY [facility] Administration ASSESSMENT/PLAN: This is a 78 year old female CAD, COPD,breast ca (stage 1, RT in 1999), who came in with acute hypoxic respiratory failure and septic shock due to possible PNA, s/p intubation, called to evaluate for thrombocytopenia and anemia Thrombocytopenia macrocytic anemia Acute hypoxic respiratory failure secondary to PNA/COPD acute COPD exacerbation septic shock; now resolving transaminitis CHF HTN HLD hx breast CA -drop in H/H today;slight drop in platelets -thrombocytopenia with anemia may be secondary to ineffective hematopoeisis due to sepsis vs hepatocellular dz vs hemolysis; vs another blood disorder causing ineffective hematopoeisis -Iron studies pending, tsh, t4, retic, haptoglobin, ldh, esr, crp; flow cytometry, cytogenetics, FISH ( folate and B12 are not deficient) -abdominal US reveal fatty liver vs hepatocellular dz; elevated lfts -recommend hepatitis panel -r/o HIT; baseline platelets around 150s-170s; now 84; was on heparin drip on ; unknown for how long; antibofy pending -heparin d/c'd Visit type - Emergency Visit Emergency Visit: Yes ED Registration Date: 08/26/18 Care time: The patient presented to the Emergency Department on the above date and was hospitalized for further evaluation of their emergent condition. - New Patient This patient is new to me today: No - Critical Care Critical Care patient: No
--- NOTE | 2018-09-11 12:14 | PN ---
Progress Note, BUSINESS DEVELOPMENT PROFESSIONAL - Note Progress Note: Selected Entries 09/10/18 09/10/18 09/10/18 02:00 06:00 10:00 Supper Temperature 98.7 F 97.8 F 97.3 F L 09/10/18 09/10/18 09/10/18 14:00 18:00 19:42 Supper 25% Temperature 97.5 F L 98.8 F 09/10/18 09/11/18 09/11/18 20:17 05:47 09:00 Supper Temperature 97.8 F 98.1 F 98.2 F Laboratory Tests 09/09/18 09/10/18 09/11/18 07:20 05:30 05:30 WBC 9.9 12.8 H 11.3 H Less confused for me today, verbal, at [facility], going to [facility]. Wants to "go to [facility]" -Depressed? Able to masticate and tolerate cracker well. Set up with meals but eats little. Consider finger foods eg egg salad sandwich, for easier self feeding. Provide supplements AFTER meals so that she does not fill up on them. Consider appetite stimulant. Is pt depressed?
--- NOTE | 2018-09-11 14:16 | PN ---
Progress Note, Physician Chief Complaint: Events noted. Clinically better History of Present Illness: Patient was seen and examined. Awake. Chart was reviewed Denies chest pain, breathing comfortably, no palpitations - Current Medication List Current Medications: Active Medications Acetaminophen (Tylenol Oral Solution -) 650 mg PO Q6H PRN PRN Reason: FEVER Albuterol Sulfate (Ventolin 0.083% Nebulizer Soln -) 1 amp NEB Q4H PRN PRN Reason: SHORT OF BREATH/WHEEZING Last Admin: 09/09/18 10:50 Dose: 1 amp Alprazolam (Xanax -) 0.25 mg PO Q6H PRN PRN Reason: ANXIETY Last Admin: 09/09/18 00:42 Dose: 0.25 mg Amlodipine Besylate (Norvasc -) 5 mg PO DAILY [facility] Last Admin: 09/11/18 10:41 Dose: 5 mg Aspirin (Asa -) 81 mg PO DAILY [facility] Last Admin: 09/11/18 10:42 Dose: 81 mg Budesonide/Formoterol Fumarate (Symbicort 160/4.5mcg -) 2 puff IH BID [facility] Last Admin: 09/10/18 23:35 Dose: 2 puff Chlorhexidine Gluconate (Hibiclens For Decolonization -) 1 applic TP HS [facility] Last Admin: 09/11/18 03:49 Dose: Not Given Fenofibric Acid (Trilipix -) 135 mg PO DAILY [facility] Last Admin: 09/11/18 10:43 Dose: 135 mg Multivitamins/Minerals/Vitamin C (Tab-A-Vit -) 1 tab PO DAILY [facility] Last Admin: 09/11/18 10:41 Dose: 1 tab Nebivolol (Bystolic -) 10 mg PO DAILY [facility] Last Admin: 09/11/18 10:41 Dose: 10 mg Prednisone (Deltasone -) 40 mg PO BID [facility] Last Admin: 09/11/18 10:42 Dose: 40 mg Ramipril (Altace -) 10 mg PO BID [facility] Last Admin: 09/11/18 10:41 Dose: 10 mg Rosuvastatin Calcium (Crestor -) 10 mg PO HS [facility] Last Admin: 09/10/18 23:35 Dose: 10 mg Tiotropium [place] (Spiriva Respimat) 2 puff IH DAILY [facility] Last Admin: 09/10/18 10:04 Dose: 2 puff - Objective Vital Signs: Vital Signs Temperature 98.2 F 09/11/18 09:00 Pulse Rate 62 09/11/18 09:00 Respiratory Rate 20 09/11/18 09:00 Blood Pressure 152/63 09/11/18 09:00 O2 Sat by Pulse Oximetry (%) 98 09/11/18 09:00 Eyes: Yes: PERRL HENT: Yes: Atraumatic Neck: Yes: Supple Cardiovascular: Yes: Regular Rate and Rhythm, S1, S2 Respiratory: Yes: Diminished Gastrointestinal: Yes: Normal Bowel Sounds, Soft. No: Tenderness Edema: No Additional Findings/Remarks: - Review of Systems Constitutional: denies: Chills, Fever Cardiovascular: denies: Chest Pain, Palpitations, (+) Shortness of Breath Respiratory: denies: Cough, Hemoptysis, Orthopnea, PND, (+) SOB, SOB on Exertion Gastrointestinal: denies: Abdominal Pain, Constipation, Diarrhea, Melena, Nausea , Rectal Bleeding, Vomiting Musculoskeletal: denies: Joint Pain Neurological: denies: Dizziness, Headache, Seizure, Syncope Labs: CBC, BMP 09/11/18 05:30 09/11/18 05:30 INR, PTT INR 1.13 (0.83-1.09) H 09/11/18 05:30 Problem List - Problems (1) Acute respiratory failure Code(s): J96.00 - ACUTE RESPIRATORY FAILURE, UNSP W HYPOXIA OR HYPERCAPNIA (2) COPD exacerbation Code(s): J44.1 - CHRONIC OBSTRUCTIVE PULMONARY DISEASE W (ACUTE) EXACERBATION (3) Breast CA Code(s): C50.919 - MALIGNANT NEOPLASM OF UNSP SITE OF UNSPECIFIED FEMALE BREAST (4) CAD (coronary artery disease) Code(s): I25.10 - ATHSCL HEART DISEASE OF [place] CORONARY ARTERY W/O ANG PCTRS Qualifiers: Coronary Disease-Associated Artery/Lesion type: [place] artery [place] vs. transplanted heart: [place] heart Associated angina: without angina Qualified Code(s): I25.10 - Atherosclerotic heart disease of [place] coronary artery without angina pectoris (5) Generalized weakness Code(s): R53.1 - WEAKNESS (6) HLD (hyperlipidemia) Code(s): E78.5 - HYPERLIPIDEMIA, UNSPECIFIED Qualifiers: Hyperlipidemia type: mixed hyperlipidemia Qualified Code(s): E78.2 - Mixed hyperlipidemia (7) HTN (hypertension) Code(s): I10 - ESSENTIAL (PRIMARY) HYPERTENSION Qualifiers: Hypertension type: essential hypertension Qualified Code(s): I10 - Essential (primary) hypertension (8) Hyponatremia Code(s): E87.1 - HYPO-OSMOLALITY AND HYPONATREMIA (9) UTI (urinary tract infection) Code(s): N39.0 - URINARY TRACT INFECTION, SITE NOT SPECIFIED Qualifiers: Urinary tract infection type: site unspecified Hematuria presence: without hematuria Qualified Code(s): N39.0 - Urinary tract infection, site not specified Assessment/Plan 1. Post acute respiratory failure due to acute exacerbation of COPD +/- PNA 2. CAD s/p PCI/stent 3. HTN 4. Hypercholesterolemia 5. PSVT now in sinus rhythm 6. Generalized weakness and unsteady gait 7. History of left breast CA (Stage 1, RT, 1999) 8. UTI 9. Anemia 10. Hyponatremia, resolved 11. Demand ischemia PLAN: 1. O2 as needed to maintain saturation and CPAP, bronchodilator and steroid taper - monitor respiratory status 2. Continue ASA 81 mg QD, Crestor 10 mg QHS and Trilipix 135 mg QD 3. Continue Bystolic 10 mg QD, Norvasc 5 mg QD and Ramipril 10 mg BID as hemodynamics tolerate Hose Maker: Severiano Bond MD. [facility] Jose Pablo MD
--- NOTE | 2018-09-11 18:05 | PN ---
Teaching Attending Note Name of Resident: Berta Mcdonald ATTENDING PHYSICIAN STATEMENT I saw and evaluated the patient. I reviewed the resident's note and discussed the case with the resident. I agree with the resident's findings and plan as documented. SUBJECTIVE: Patient seen and examined anemia /thrombocytopenia Last Vital Signs Temp Pulse Resp BP Pulse Ox 98.2 F 62 20 152/63 98 09/11/18 09:00 09/11/18 09:00 09/11/18 09:00 09/11/18 09:00 09/11/18 09:00 HEENT: K[place], EOM Intact Oropharynx: No thrush, No mucositis Cor: RSR, No murmurs, No gallops Lungs: rhonchi Abd: Soft, Normal bowel sounds, No organomegaly Ext stasis Skin: No rashes, Integument skin breakdown CBC, BMP 09/11/18 05:30 09/11/18 05:30 Current Medications Generic Name Dose Route Start Last Admin Trade Name Freq PRN Reason Stop Dose Admin Acetaminophen 650 mg 09/06/18 11:50 Tylenol Oral Solution - PO Q6H PRN FEVER Albuterol Sulfate 1 amp 09/08/18 12:57 09/09/18 10:50 Ventolin 0.083% Nebulizer Soln - NEB 1 amp Q4H PRN Administration SHORT OF BREATH/WHEEZING Alprazolam 0.25 mg 09/06/18 11:50 09/09/18 00:42 Xanax - PO 0.25 mg Q6H PRN Administration ANXIETY Amlodipine Besylate 5 mg 09/05/18 16:00 09/11/18 10:41 Norvasc - PO 5 mg DAILY [facility] Administration Aspirin 81 mg 09/07/18 10:00 09/11/18 10:42 Asa - PO 81 mg DAILY [facility] Administration Budesonide/Formoterol Fumarate 2 puff 09/08/18 13:00 09/10/18 23:35 Symbicort 160/4.5mcg - IH 2 puff BID [facility] Administration Chlorhexidine Gluconate 1 applic 09/06/18 22:00 09/11/18 03:49 Hibiclens For Decolonization - TP Not Given HS [facility] Fenofibric Acid 135 mg 09/07/18 10:00 09/11/18 10:43 Trilipix - PO 135 mg DAILY [facility] Administration Multivitamins/Minerals/Vitamin C 1 tab 09/07/18 10:00 09/11/18 10:41 Tab-A-Vit - PO 1 tab DAILY [facility] Administration Nebivolol 10 mg 09/10/18 09:05 09/11/18 10:41 Bystolic - PO 10 mg DAILY [facility] Administration Prednisone 40 mg 09/10/18 11:12 09/11/18 10:42 Deltasone - PO 40 mg BID [facility] Administration Ramipril 10 mg 09/06/18 22:00 09/11/18 10:41 Altace - PO 10 mg BID [facility] Administration Rosuvastatin Calcium 10 mg 09/06/18 22:00 09/10/18 23:35 Crestor - PO 10 mg HS [facility] Administration Tiotropium [place] 2 puff 09/08/18 13:00 09/10/18 10:04 Spiriva Respimat IH 2 puff DAILY [facility] Administration OBJECTIVE:thrombocytopenia Anemia- ? ineffective erythropoiesis , sepsis,liver disease Acute hypoxic respiratory failure secondary to PNA/COPD acute COPD exacerbation septic shock; now resolving transaminitis CHF hx breast CA Dementia - Anemia: -macrocytic anemia--tsh, t4, b12, folate, , flow studies , ? secondary to liver disease Ultrasound- fatty liver vs. liver disease ; small liver Fe++ studies Elevated ferritin - liver disease ; chronic disease Impression: Check CBC Type and X and transfuse in AM Await work up ASSESSMENT AND PLAN:
--- NOTE | 2018-09-11 18:06 | PN ---
Teaching Attending Note ATTENDING PHYSICIAN STATEMENT I saw and evaluated the patient. I reviewed the resident's note and discussed the case with the resident. I agree with the resident's findings and plan as documented. SUBJECTIVE: OBJECTIVE: ASSESSMENT AND PLAN:
[2018-09-11] MEDS: ALPRAZolam 0.25 MG TABLET PO PRN (21:57)
[2018-09-11] MEDS: ROSUVASTATIN CA 10 MG TABLET (FP) PO SCH (21:58)
[2018-09-11] MEDS: BUDESONIDE/FORMETEROL FUMARATE 160/4.5 mcg INHALER IH SCH ×2 (21:58→22:03)
[2018-09-11 23:27] VITALS: BMI 18.6
[2018-09-12 06:36] LABS: BASO % 0.1 % (0-2.0); HEMATOCRIT 23.1 % (32.4-45.2); HEMOGLOBIN 7.8 GM/dL (10.7-15.3); LYMPH % 3.4 % (8-40); MCH 33.9 pg (25.7-33.7); MCHC 33.9 g/dl (32.0-36.0); MEAN PLT VOLUME 10.3 fl (7.5-11.1); MONO % 2.3 % (3.8-10.2); NEUT % 94.2 % (42.8-82.8); PLATELET COUNT 94 K/MM3 (134-434); RBC 2.31 M/mm3 (3.60-5.2); RDW 15.1 % (11.6-15.6); WHITE BLOOD COUNT 11.8 K/mm3 (4.0-10.0)
[2018-09-12 07:27] LABS: ALBUMIN 2.3 g/dl (3.4-5.0); ALK PHOS 139 U/L (45-117); ANION GAP 4 MMOL/L (8-16); BLOOD UREA NITROGEN 46 mg/dL (7-18); CHLORIDE 104 mmol/L (98-107); CO2 33 mmol/L (21-32); CREATININE 0.9 mg/dL (0.55-1.3); GLUCOSE,RANDOM 178 mg/dL (74-106); LDH 417 U/L (84-246); SGOT/AST 112 U/L (15-37); SGPT/ALT 213 U/L (13-61); SODIUM 142 mmol/L (136-145); TOT PROT 4.4 g/dl (6.4-8.2)
[2018-09-12 08:06] LABS: SERUM IRON SATURATION 50 % (15-55); TOTAL IRON BINDING CAPACITY 246 ug/dL (250-450); UIBC 124 ug/dL (118-369)
[2018-09-12] MEDS: TIOTROPIUM BROMIDE 2.5 MCG (SPIRIVA) RESPIMAT INHALER IH SCH ×2 (10:12→10:13)
[2018-09-12] MEDS: RAMIPRIL 5 MG CAPSULE (FP) PO SCH ×2 (10:12→22:23)
[2018-09-12] MEDS: NEBIVOLOL 10 MG TABLET (FP) PO SCH (10:12)
[2018-09-12] MEDS: BUDESONIDE/FORMETEROL FUMARATE 160/4.5 mcg INHALER IH SCH ×2 (10:12→22:24)
[2018-09-12] MEDS: predniSONE 20 MG TABLET (UD) PO SCH ×2 (10:13→22:24)
[2018-09-12] MEDS: ASPIRIN 81 MG CHEWABLE TABLETS PO SCH (10:13)
[2018-09-12] MEDS: MULTIVITAMINS (DAILY MVI) TABLET (FP) PO SCH (10:13)
[2018-09-12] MEDS: amLODIPine BESYLATE 5 MG TABLET (FP) PO SCH (10:13)
[2018-09-12] MEDS: FENOFIBRIC ACID 135 MG CAP PO SCH (10:14)
--- NOTE | 2018-09-12 10:52 | PN ---
Progress Note, Physician History of Present Illness: pulmonary alert,confused,-resp distress - Current Medication List Current Medications: Active Medications Acetaminophen (Tylenol Oral Solution -) 650 mg PO Q6H PRN PRN Reason: FEVER Albuterol Sulfate (Ventolin 0.083% Nebulizer Soln -) 1 amp NEB Q4H PRN PRN Reason: SHORT OF BREATH/WHEEZING Last Admin: 09/09/18 10:50 Dose: 1 amp Alprazolam (Xanax -) 0.25 mg PO Q6H PRN PRN Reason: ANXIETY Last Admin: 09/11/18 21:57 Dose: 0.25 mg Amlodipine Besylate (Norvasc -) 5 mg PO DAILY [facility] Last Admin: 09/12/18 10:13 Dose: 5 mg Aspirin (Asa -) 81 mg PO DAILY [facility] Last Admin: 09/12/18 10:13 Dose: Not Given Budesonide/Formoterol Fumarate (Symbicort 160/4.5mcg -) 2 puff IH BID [facility] Last Admin: 09/12/18 10:12 Dose: 2 puff Chlorhexidine Gluconate (Hibiclens For Decolonization -) 1 applic TP [facility] Last Admin: 09/11/18 21:58 Dose: Not Given Fenofibric Acid (Trilipix -) 135 mg PO DAILY [facility] Last Admin: 09/12/18 10:14 Dose: 135 mg Multivitamins/Minerals/Vitamin C (Tab-A-Vit -) 1 tab PO DAILY [facility] Last Admin: 09/12/18 10:13 Dose: 1 tab Nebivolol (Bystolic -) 10 mg PO DAILY [facility] Last Admin: 09/12/18 10:12 Dose: 10 mg Prednisone (Deltasone -) 40 mg PO BID [facility] Last Admin: 09/12/18 10:13 Dose: 40 mg Ramipril (Altace -) 10 mg PO BID [facility] Last Admin: 09/12/18 10:12 Dose: 10 mg Rosuvastatin Calcium (Crestor -) 10 mg PO HS [facility] Last Admin: 09/11/18 21:58 Dose: 10 mg Tiotropium [place] (Spiriva Respimat) 2 puff IH DAILY [facility] Last Admin: 09/12/18 10:13 Dose: 2 puff - Objective Vital Signs: Vital Signs Temperature 97.8 F 09/12/18 05:00 Pulse Rate 60 09/12/18 05:00 Respiratory Rate 20 09/12/18 05:00 Blood Pressure 134/54 L 09/12/18 05:00 O2 Sat by Pulse Oximetry (%) 98 09/11/18 21:00 Constitutional: Yes: Calm, Thin Eyes: Yes: WNL HENT: Yes: WNL Neck: Yes: WNL Cardiovascular: Yes: Regular Rate and Rhythm, S1, S2 Respiratory: Yes: Diminished Gastrointestinal: Yes: Normal Bowel Sounds, Soft Extremities: Yes: WNL Edema: No Labs: CBC, BMP 09/12/18 05:30 09/12/18 05:30 INR, PTT INR 1.13 (0.83-1.09) H 09/11/18 05:30 Problem List - Problems (1) Acute respiratory failure with hypoxia and hypercapnia Code(s): J96.01 - ACUTE RESPIRATORY FAILURE WITH HYPOXIA; J96.02 - ACUTE RESPIRATORY FAILURE WITH HYPERCAPNIA (2) Pneumonia Code(s): J18.9 - PNEUMONIA, UNSPECIFIED ORGANISM (3) Acute respiratory failure Code(s): J96.00 - ACUTE RESPIRATORY FAILURE, UNSP W HYPOXIA OR HYPERCAPNIA (4) Breast CA Code(s): C50.919 - MALIGNANT NEOPLASM OF UNSP SITE OF UNSPECIFIED FEMALE BREAST (5) COPD exacerbation Code(s): J44.1 - CHRONIC OBSTRUCTIVE PULMONARY DISEASE W (ACUTE) EXACERBATION (6) Demand ischemia Code(s): I24.8 - OTHER FORMS OF ACUTE ISCHEMIC HEART DISEASE (7) HLD (hyperlipidemia) Code(s): E78.5 - HYPERLIPIDEMIA, UNSPECIFIED Qualifiers: Hyperlipidemia type: mixed hyperlipidemia Qualified Code(s): E78.2 - Mixed hyperlipidemia (8) HTN (hypertension) Code(s): I10 - ESSENTIAL (PRIMARY) HYPERTENSION Qualifiers: Hypertension type: essential hypertension Qualified Code(s): I10 - Essential (primary) hypertension Assessment/Plan ASSESSMENT AND PLAN: Acute Hypoxic and Hypercapneic Respiratory Failure improving Acute COPD Exacerbation improving Pneumonia LV Diastolic Dysfunction PSVT HTN Hyperlipidemia h/o Breast Ca Anemia Thrombocytopenia - Prednisone taper - inhaled bronchodilators standing and PRN - BiPAP as needed to assist in work of breathing - O2 to keep Spo2 >90% - DVT/GI prophylaxis - Monitor h+h,plt ct - normal transfusion threshold - short term inpatient pulmonary rehab post discharge DR BEAL
[2018-09-12 11:13] LABS: ANISOCYTOSIS 1+; MACROCYTOSIS 1+; OVALOCYTE 1+; PLATELET ESTIMATE DECREASED
--- NOTE | 2018-09-12 12:00 | PN ---
Progress Note, Physician History of Present Illness: Breathing improved now off NC. BP control improved. Sensorium improved to baseline. - Current Medication List Current Medications: Active Medications Acetaminophen (Tylenol Oral Solution -) 650 mg PO Q6H PRN PRN Reason: FEVER Albuterol Sulfate (Ventolin 0.083% Nebulizer Soln -) 1 amp NEB Q4H PRN PRN Reason: SHORT OF BREATH/WHEEZING Last Admin: 09/09/18 10:50 Dose: 1 amp Alprazolam (Xanax -) 0.25 mg PO Q6H PRN PRN Reason: ANXIETY Last Admin: 09/11/18 21:57 Dose: 0.25 mg Amlodipine Besylate (Norvasc -) 5 mg PO DAILY [facility] Last Admin: 09/12/18 10:13 Dose: 5 mg Aspirin (Asa -) 81 mg PO DAILY [facility] Last Admin: 09/12/18 10:13 Dose: Not Given Budesonide/Formoterol Fumarate (Symbicort 160/4.5mcg -) 2 puff IH BID [facility] Last Admin: 09/12/18 10:12 Dose: 2 puff Chlorhexidine Gluconate (Hibiclens For Decolonization -) 1 applic TP [facility] Last Admin: 09/11/18 21:58 Dose: Not Given Fenofibric Acid (Trilipix -) 135 mg PO DAILY [facility] Last Admin: 09/12/18 10:14 Dose: 135 mg Multivitamins/Minerals/Vitamin C (Tab-A-Vit -) 1 tab PO DAILY [facility] Last Admin: 09/12/18 10:13 Dose: 1 tab Nebivolol (Bystolic -) 10 mg PO DAILY [facility] Last Admin: 09/12/18 10:12 Dose: 10 mg Prednisone (Deltasone -) 40 mg PO BID [facility] Last Admin: 09/12/18 10:13 Dose: 40 mg Ramipril (Altace -) 10 mg PO BID [facility] Last Admin: 09/12/18 10:12 Dose: 10 mg Rosuvastatin Calcium (Crestor -) 10 mg PO HS [facility] Last Admin: 09/11/18 21:58 Dose: 10 mg Tiotropium [place] (Spiriva Respimat) 2 puff IH DAILY [facility] Last Admin: 09/12/18 10:13 Dose: 2 puff - Objective Vital Signs: Vital Signs Temperature 97.8 F 09/12/18 05:00 Pulse Rate 60 09/12/18 05:00 Respiratory Rate 20 09/12/18 05:00 Blood Pressure 134/54 L 09/12/18 05:00 O2 Sat by Pulse Oximetry (%) 98 09/11/18 21:00 Constitutional: Yes: No Distress, Calm, Thin Neck: Yes: Supple Cardiovascular: Yes: Regular Rate and Rhythm Respiratory: Yes: Regular, Diminished Gastrointestinal: Yes: Normal Bowel Sounds, Soft Edema: No Labs: CBC, BMP 09/12/18 05:30 09/12/18 05:30 INR, PTT INR 1.13 (0.83-1.09) H 09/11/18 05:30 - ....Imaging EKG: Report Reviewed (Tele: NSR) Problem List - Problems (1) Demand ischemia Code(s): I24.8 - OTHER FORMS OF ACUTE ISCHEMIC HEART DISEASE (2) Acute respiratory failure Code(s): J96.00 - ACUTE RESPIRATORY FAILURE, UNSP W HYPOXIA OR HYPERCAPNIA (3) CAD (coronary artery disease) Code(s): I25.10 - ATHSCL HEART DISEASE OF [place] CORONARY ARTERY W/O ANG PCTRS Qualifiers: Coronary Disease-Associated Artery/Lesion type: [place] artery [place] vs. transplanted heart: [place] heart Associated angina: without angina Qualified Code(s): I25.10 - Atherosclerotic heart disease of [place] coronary artery without angina pectoris (4) COPD exacerbation Code(s): J44.1 - CHRONIC OBSTRUCTIVE PULMONARY DISEASE W (ACUTE) EXACERBATION (5) HLD (hyperlipidemia) Code(s): E78.5 - HYPERLIPIDEMIA, UNSPECIFIED Qualifiers: Hyperlipidemia type: mixed hyperlipidemia Qualified Code(s): E78.2 - Mixed hyperlipidemia (6) HTN (hypertension) Code(s): I10 - ESSENTIAL (PRIMARY) HYPERTENSION Qualifiers: Hypertension type: essential hypertension Qualified Code(s): I10 - Essential (primary) hypertension (7) PSVT (paroxysmal supraventricular tachycardia) Code(s): I47.1 - SUPRAVENTRICULAR TACHYCARDIA (8) UTI (urinary tract infection) Code(s): N39.0 - URINARY TRACT INFECTION, SITE NOT SPECIFIED Qualifiers: Urinary tract infection type: site unspecified Hematuria presence: without hematuria Qualified Code(s): N39.0 - Urinary tract infection, site not specified Assessment/Plan 08/28/2018 Echo: Low normal LV fxn, normal RV size and fxn, mild AR 1. Post acute respiratory failure due to acute exacerbation of COPD +/- PNA 2. CAD s/p PCI/stent 3. HTN 4. Hypercholesterolemia 5. PSVT now in sinus rhythm 6. Generalized weakness and unsteady gait 7. History of left breast CA (Stage 1, RT, 1999) 8. UTI 9. Anemia and thrombocytopenia 10. Hyponatremia, resolved 11. Demand ischemia PLAN: 1. O2 as needed to maintain saturation and CPAP, bronchodilator and oral steroid taper with monitor respiratory status 2. Continue ASA 81 mg QD, Crestor 10 mg QHS and Trilipix 135 mg QD 3. Continue Bystolic 10 mg QD, Norvasc 5 mg QD and Ramipril 10 mg BID as hemodynamics tolerate 4. Transfuse as needed to maintain Hgb>8.0 Media Analyst: Severiano Bond MD. [facility]
--- NOTE | 2018-09-12 13:06 | PN ---
Physical Exam: SUBJECTIVE: Patient seen and examined; still confused; speaks in one word answers; thinks she s in [place] at a hotel; at bedside stating she is not like this at home; no history of dementia. OBJECTIVE: Vital Signs Period Temp Pulse Resp BP Sys/Prakash Pulse Ox Last 24 Hr 97.8 F-98.2 F 56-78 20-20 134-143/51-58 96-98 GENERAL: The patient is awake, alert, and confused HEAD: Normal with no signs of trauma. EYES: PERRL, extraocular movements intact, sclera anicteric, conjunctiva clear. No ptosis. NECK: Trachea midline, full range of motion, supple. LUNGS: scattered rhonchi HEART: Regular rate and rhythm, S1, S2 without murmur, rub or gallop. ABDOMEN: Soft, nontender, nondistended, normoactive bowel sounds, no guarding, no rebound, no hepatosplenomegaly, no masses. EXTREMITIES: 2+ pulses, warm, well-perfused, no edema. frail legs; b/l LE wrapped from open skin tears with surrounding ecchymosis NEUROLOGICAL: Cranial nerves II through XII grossly intact. Normal speech, gait not observed. AAOx2 PSYCH: flat affect; SKIN: scattered ecchymosis; Laboratory Results - last 24 hr 09/11/18 09/12/18 09/12/18 05:30 05:30 05:30 WBC RBC Hgb Hct MCV MCH MCHC RDW Plt Count MPV Absolute Neuts (auto) Neutrophils % Neutrophils % (Manual) Band Neutrophils % Lymphocytes % Lymphocytes % (Manual) Monocytes % Monocytes % (Manual) Eosinophils % Eosinophils % (Manual) Basophils % Basophils % (Manual) Myelocytes % (Man) Promyelocytes % (Man) Blast Cells % (Manual) Nucleated RBC % Metamyelocytes Hypochromia Platelet Estimate Polychromasia Poikilocytosis Anisocytosis Microcytosis Macrocytosis Ovalocytes ESR Retic Count 1.16 Sodium 142 Potassium 4.0 Chloride 104 Carbon Dioxide 33 H Anion Gap 4 L BUN 46 H Creatinine 0.9 Creat Clearance w eGFR > 60 POC Glucometer Random Glucose 178 H Calcium 8.0 L Magnesium 2.0 Iron 122 TIBC 246 L Iron Saturation 50 Total Bilirubin 1.0 AST 112 H ALT 213 H Alkaline Phosphatase 139 H LD Total 417 H C-Reactive Protein 0.5 H Total Protein 4.4 L Albumin 2.3 L Blood Type Antibody Screen 09/12/18 09/12/18 09/12/18 05:30 05:30 09:50 WBC 11.8 H RBC 2.31 L Hgb 7.8 L Hct 23.1 L MCV 100.0 H MCH 33.9 H MCHC 33.9 RDW 15.1 Plt Count 94 L MPV 10.3 Absolute Neuts (auto) 11.1 H Neutrophils % 94.2 H Neutrophils % (Manual) 99.0 H Band Neutrophils % 0.0 Lymphocytes % 3.4 L D Lymphocytes % (Manual) 0.0 L Monocytes % 2.3 L Monocytes % (Manual) 1 L Eosinophils % 0.0 Eosinophils % (Manual) 0.0 Basophils % 0.1 Basophils % (Manual) 0.0 Myelocytes % (Man) 0 Promyelocytes % (Man) 0 Blast Cells % (Manual) 0 Nucleated RBC % 0 Metamyelocytes 0 Hypochromia 0 Platelet Estimate Decreased Polychromasia 0 Poikilocytosis 0 Anisocytosis 1+ Microcytosis 0 Macrocytosis 1+ Ovalocytes 1+ ESR 14 Retic Count Sodium Potassium Chloride Carbon Dioxide Anion Gap BUN Creatinine Creat Clearance w eGFR POC Glucometer Random Glucose Calcium Magnesium Iron TIBC Iron Saturation Total Bilirubin AST ALT Alkaline Phosphatase LD Total C-Reactive Protein Total Protein Albumin Blood Type O POSITIVE Antibody Screen Negative 09/12/18 11:48 WBC RBC Hgb Hct MCV MCH MCHC RDW Plt Count MPV Absolute Neuts (auto) Neutrophils % Neutrophils % (Manual) Band Neutrophils % Lymphocytes % Lymphocytes % (Manual) Monocytes % Monocytes % (Manual) Eosinophils % Eosinophils % (Manual) Basophils % Basophils % (Manual) Myelocytes % (Man) Promyelocytes % (Man) Blast Cells % (Manual) Nucleated RBC % Metamyelocytes Hypochromia Platelet Estimate Polychromasia Poikilocytosis Anisocytosis Microcytosis Macrocytosis Ovalocytes ESR Retic Count Sodium Potassium Chloride Carbon Dioxide Anion Gap BUN Creatinine Creat Clearance w eGFR POC Glucometer 144 Random Glucose Calcium Magnesium Iron TIBC Iron Saturation Total Bilirubin AST ALT Alkaline Phosphatase LD Total C-Reactive Protein Total Protein Albumin Blood Type Antibody Screen Active Medications Generic Name Dose Route Start Last Admin Trade Name Freq PRN Reason Stop Dose Admin Acetaminophen 650 mg 09/06/18 11:50 Tylenol Oral Solution - PO Q6H PRN FEVER Albuterol Sulfate 1 amp 09/08/18 12:57 09/09/18 10:50 Ventolin 0.083% Nebulizer Soln - NEB 1 amp Q4H PRN Administration SHORT OF BREATH/WHEEZING Alprazolam 0.25 mg 09/06/18 11:50 09/11/18 21:57 Xanax - PO 0.25 mg Q6H PRN Administration ANXIETY Amlodipine Besylate 5 mg 09/05/18 16:00 09/12/18 10:13 Norvasc - PO 5 mg DAILY [facility] Administration Aspirin 81 mg 09/07/18 10:00 09/12/18 10:13 Asa - PO Not Given DAILY [facility] Budesonide/Formoterol Fumarate 2 puff 09/08/18 13:00 09/12/18 10:12 Symbicort 160/4.5mcg - IH 2 puff BID [facility] Administration Chlorhexidine Gluconate 1 applic 09/06/18 22:00 09/11/18 21:58 Hibiclens For Decolonization - TP Not Given HS [facility] Fenofibric Acid 135 mg 09/07/18 10:00 09/12/18 10:14 Trilipix - PO 135 mg DAILY [facility] Administration Multivitamins/Minerals/Vitamin C 1 tab 09/07/18 10:00 09/12/18 10:13 Tab-A-Vit - PO 1 tab DAILY [facility] Administration Nebivolol 10 mg 09/10/18 09:05 09/12/18 10:12 Bystolic - PO 10 mg DAILY [facility] Administration Prednisone 40 mg 09/10/18 11:12 09/12/18 10:13 Deltasone - PO 40 mg BID [facility] Administration Ramipril 10 mg 09/06/18 22:00 09/12/18 10:12 Altace - PO 10 mg BID [facility] Administration Rosuvastatin Calcium 10 mg 09/06/18 22:00 09/11/18 21:58 Crestor - PO 10 mg HS [facility] Administration Tiotropium [place] 2 puff 09/08/18 13:00 09/12/18 10:13 Spiriva Respimat IH 2 puff DAILY [facility] Administration ASSESSMENT/PLAN: This is a 78 year old female CAD, COPD,breast ca (stage 1, RT in 1999), who came in with acute hypoxic respiratory failure and septic shock due to possible PNA, s/p intubation, called to evaluate for thrombocytopenia and anemia Thrombocytopenia macrocytic anemia confusion/delerium? Acute hypoxic respiratory failure secondary to PNA/COPD acute COPD exacerbation septic shock; now resolving transaminitis CHF HTN HLD hx breast CA -transfuse 1U PRBC; f/u CBC: flow pending -thrombocytopenia with anemia may be secondary to ineffective hematopoeisis due to sepsis vs hepatocellular dz vs hemolysis; vs another blood disorder causing ineffective hematopoeisis -Iron studies pending, tsh, t4, retic, haptoglobin, ldh, esr, crp; flow cytometry, cytogenetics, FISH ( folate and B12 are not deficient) -abdominal US reveal fatty liver vs hepatocellular dz; elevated lfts -recommend hepatitis panel -r/o HIT; baseline platelets around 150s-170s; now 86; was on heparin drip on ; unknown for how long; antibody pending -patient confused since admission; r/u delerium vs acute [employer] pathology; (she is currently not hypoxic or hypercapniec) Visit type - Emergency Visit Emergency Visit: Yes ED Registration Date: 08/26/18 Care time: The patient presented to the Emergency Department on the above date and was hospitalized for further evaluation of their emergent condition. - New Patient This patient is new to me today: No - Critical Care Critical Care patient: No
--- NOTE | 2018-09-12 14:08 | PN ---
Progress Note, INPATIENT AUDITOR - Note Progress Note: Selected Entries 09/12/18 09/12/18 09/12/18 05:00 09:00 11:14 Breakfast 50% Temperature 97.8 F 98.1 F Laboratory Tests 09/12/18 05:30 WBC 11.8 H Provide finger foods eg egg salad sandwich, for easier self feeding. Provide supplements AFTER meals so that she does not fill up on them. Pt reports eating 1/2 her hamburger today. She did recall the hamburger but most left on the tray. She seems a little SOB.Pt just returned to bed. . Consider appetite stimulant. Is pt depressed?
--- NOTE | 2018-09-12 15:53 | PN ---
Teaching Attending Note Name of Resident: Berta Mcdonald ATTENDING PHYSICIAN STATEMENT I saw and evaluated the patient. I reviewed the resident's note and discussed the case with the resident. I agree with the resident's findings and plan as documented. SUBJECTIVE: OBJECTIVE: ASSESSMENT AND PLAN: Patient seen and examined Denies significant chest pain or Shortness of breath Last Vital Signs Temp Pulse Resp BP Pulse Ox 98.1 F 71 20 149/61 96 09/12/18 14:00 09/12/18 14:00 09/12/18 09:00 09/12/18 14:00 09/12/18 09:00 HEENT: [place], EOM Intact Oropharynx: No thrush, No mucositis Neck: Supple Nodes: Without adenopathy Breasts: left breast 6:00 axis s/p lumpectomy Cor: RSR, No murmurs, No gallops Lungs:bilateral rales bases Abd: Soft, Normal bowel sounds, No organomegaly Ext:No significant edema, stasis changes Skin: ecchymoses and purpura chest wall , skin tears and dressings CBC, BMP 09/12/18 05:30 09/12/18 05:30 Current Medications Generic Name Dose Route Start Last Admin Trade Name Freq PRN Reason Stop Dose Admin Acetaminophen 650 mg 09/06/18 11:50 Tylenol Oral Solution - PO Q6H PRN FEVER Albuterol Sulfate 1 amp 09/08/18 12:57 09/09/18 10:50 Ventolin 0.083% Nebulizer Soln - NEB 1 amp Q4H PRN Administration SHORT OF BREATH/WHEEZING Alprazolam 0.25 mg 09/06/18 11:50 09/11/18 21:57 Xanax - PO 0.25 mg Q6H PRN Administration ANXIETY Amlodipine Besylate 5 mg 09/05/18 16:00 09/12/18 10:13 Norvasc - PO 5 mg DAILY [facility] Administration Aspirin 81 mg 09/07/18 10:00 09/12/18 10:13 Asa - PO Not Given DAILY [facility] Budesonide/Formoterol Fumarate 2 puff 09/08/18 13:00 09/12/18 10:12 Symbicort 160/4.5mcg - IH 2 puff BID [facility] Administration Chlorhexidine Gluconate 1 applic 09/06/18 22:00 09/11/18 21:58 Hibiclens For Decolonization - TP Not Given HS [facility] Fenofibric Acid 135 mg 09/07/18 10:00 09/12/18 10:14 Trilipix - PO 135 mg DAILY [facility] Administration Multivitamins/Minerals/Vitamin C 1 tab 09/07/18 10:00 09/12/18 10:13 Tab-A-Vit - PO 1 tab DAILY [facility] Administration Nebivolol 10 mg 09/10/18 09:05 09/12/18 10:12 Bystolic - PO 10 mg DAILY [facility] Administration Prednisone 40 mg 09/10/18 11:12 09/12/18 10:13 Deltasone - PO 40 mg BID [facility] Administration Ramipril 10 mg 09/06/18 22:00 09/12/18 10:12 Altace - PO 10 mg BID [facility] Administration Rosuvastatin Calcium 10 mg 09/06/18 22:00 09/11/18 21:58 Crestor - PO 10 mg HS [facility] Administration Tiotropium [place] 2 puff 09/08/18 13:00 09/12/18 10:13 Spiriva Respimat IH 2 puff DAILY [facility] Administration Impression: Anemia - chronic disease - normal B-12,folate, Fe++ STUDIES , ELEVATED FERRITIN , flow pending -For transfusion ofpa Macrocytosis Abnormal LFT's , non megloblastic, flow pending Thrombocytopenia- flow pending , ??infection , abnormal LFT's etiology s/p acute hypoxic respiraory COPD flare Abnormal LFT's on Crestor For transfusion Continue monitoring ? trial off crestor to evaluate etiology of LFT's.
--- NOTE | 2018-09-12 18:10 | PN ---
Physical Exam: SUBJECTIVE: Patient seen and examined at the bedside. OBJECTIVE: Vital Signs Period Temp Pulse Resp BP Sys/Prakash Pulse Ox Last 24 Hr 97.8 F-98.2 F 56-78 20-20 134-149/51-61 96-98 GENERAL: The patient is awake, alert, episodes of confusion HEAD: Normal with no signs of trauma. EYES: PERRL, extraocular movements intact, sclera anicteric, conjunctiva clear. No ptosis. ENT: Ears normal, nares patent, oropharynx clear without exudates, moist mucous membranes. NECK: Trachea midline, full range of motion, supple. LUNGS: scattered wheezing HEART: Regular rate and rhythm, S1, S2 without murmur, rub or gallop. ABDOMEN: Soft, nontender, nondistended, normoactive bowel sounds, no guarding, no rebound, no hepatosplenomegaly, no masses. EXTREMITIES: no edema. NEUROLOGICAL: Normal speech, gait not observed. PSYCH: Normal mood, normal affect. SKIN: bilateral lower ext skin tears Laboratory Results - last 24 hr 09/11/18 09/11/18 09/12/18 05:30 05:30 05:30 WBC RBC Hgb Hct MCV MCH MCHC RDW Plt Count MPV Absolute Neuts (auto) Neutrophils % Neutrophils % (Manual) Band Neutrophils % Lymphocytes % Lymphocytes % (Manual) Monocytes % Monocytes % (Manual) Eosinophils % Eosinophils % (Manual) Basophils % Basophils % (Manual) Myelocytes % (Man) Promyelocytes % (Man) Blast Cells % (Manual) Nucleated RBC % Metamyelocytes Hypochromia Platelet Estimate Polychromasia Poikilocytosis Anisocytosis Microcytosis Macrocytosis Ovalocytes ESR Retic Count 1.16 Sodium Potassium Chloride Carbon Dioxide Anion Gap BUN Creatinine Creat Clearance w eGFR POC Glucometer Random Glucose Calcium Magnesium Iron 122 TIBC 246 L Iron Saturation 50 Total Bilirubin AST ALT Alkaline Phosphatase LD Total C-Reactive Protein Total Protein Albumin Heparin-Ind Plt Ab Scrn 0.160 Blood Type Antibody Screen Crossmatch 09/12/18 09/12/18 09/12/18 05:30 05:30 05:30 WBC 11.8 H RBC 2.31 L Hgb 7.8 L Hct 23.1 L MCV 100.0 H MCH 33.9 H MCHC 33.9 RDW 15.1 Plt Count 94 L MPV 10.3 Absolute Neuts (auto) 11.1 H Neutrophils % 94.2 H Neutrophils % (Manual) 99.0 H Band Neutrophils % 0.0 Lymphocytes % 3.4 L D Lymphocytes % (Manual) 0.0 L Monocytes % 2.3 L Monocytes % (Manual) 1 L Eosinophils % 0.0 Eosinophils % (Manual) 0.0 Basophils % 0.1 Basophils % (Manual) 0.0 Myelocytes % (Man) 0 Promyelocytes % (Man) 0 Blast Cells % (Manual) 0 Nucleated RBC % 0 Metamyelocytes 0 Hypochromia 0 Platelet Estimate Decreased Polychromasia 0 Poikilocytosis 0 Anisocytosis 1+ Microcytosis 0 Macrocytosis 1+ Ovalocytes 1+ ESR 14 Retic Count Sodium 142 Potassium 4.0 Chloride 104 Carbon Dioxide 33 H Anion Gap 4 L BUN 46 H Creatinine 0.9 Creat Clearance w eGFR > 60 POC Glucometer Random Glucose 178 H Calcium 8.0 L Magnesium 2.0 Iron TIBC Iron Saturation Total Bilirubin 1.0 AST 112 H ALT 213 H Alkaline Phosphatase 139 H LD Total 417 H C-Reactive Protein 0.5 H Total Protein 4.4 L Albumin 2.3 L Heparin-Ind Plt Ab Scrn Blood Type Antibody Screen Crossmatch 09/12/18 09/12/18 09:50 11:48 WBC RBC Hgb Hct MCV MCH MCHC RDW Plt Count MPV Absolute Neuts (auto) Neutrophils % Neutrophils % (Manual) Band Neutrophils % Lymphocytes % Lymphocytes % (Manual) Monocytes % Monocytes % (Manual) Eosinophils % Eosinophils % (Manual) Basophils % Basophils % (Manual) Myelocytes % (Man) Promyelocytes % (Man) Blast Cells % (Manual) Nucleated RBC % Metamyelocytes Hypochromia Platelet Estimate Polychromasia Poikilocytosis Anisocytosis Microcytosis Macrocytosis Ovalocytes ESR Retic Count Sodium Potassium Chloride Carbon Dioxide Anion Gap BUN Creatinine Creat Clearance w eGFR POC Glucometer 144 Random Glucose Calcium Magnesium Iron TIBC Iron Saturation Total Bilirubin AST ALT Alkaline Phosphatase LD Total C-Reactive Protein Total Protein Albumin Heparin-Ind Plt Ab Scrn Blood Type O POSITIVE Antibody Screen Negative Crossmatch See Detail Active Medications Generic Name Dose Route Start Last Admin Trade Name Freq PRN Reason Stop Dose Admin Acetaminophen 650 mg 09/06/18 11:50 Tylenol Oral Solution - PO Q6H PRN FEVER Albuterol Sulfate 1 amp 09/08/18 12:57 09/09/18 10:50 Ventolin 0.083% Nebulizer Soln - NEB 1 amp Q4H PRN Administration SHORT OF BREATH/WHEEZING Alprazolam 0.25 mg 09/06/18 11:50 09/11/18 21:57 Xanax - PO 0.25 mg Q6H PRN Administration ANXIETY Amlodipine Besylate 5 mg 09/05/18 16:00 09/12/18 10:13 Norvasc - PO 5 mg DAILY [facility] Administration Aspirin 81 mg 09/07/18 10:00 09/12/18 10:13 Asa - PO Not Given DAILY [facility] Budesonide/Formoterol Fumarate 2 puff 09/08/18 13:00 09/12/18 10:12 Symbicort 160/4.5mcg - IH 2 puff BID [facility] Administration Chlorhexidine Gluconate 1 applic 09/06/18 22:00 09/11/18 21:58 Hibiclens For Decolonization - TP Not Given HS [facility] Fenofibric Acid 135 mg 09/07/18 10:00 09/12/18 10:14 Trilipix - PO 135 mg DAILY [facility] Administration Multivitamins/Minerals/Vitamin C 1 tab 09/07/18 10:00 09/12/18 10:13 Tab-A-Vit - PO 1 tab DAILY [facility] Administration Nebivolol 10 mg 09/10/18 09:05 09/12/18 10:12 Bystolic - PO 10 mg DAILY [facility] Administration Prednisone 40 mg 09/10/18 11:12 09/12/18 10:13 Deltasone - PO 40 mg BID [facility] Administration Ramipril 10 mg 09/06/18 22:00 09/12/18 10:12 Altace - PO 10 mg BID [facility] Administration Rosuvastatin Calcium 10 mg 09/06/18 22:00 09/11/18 21:58 Crestor - PO 10 mg HS [facility] Administration Tiotropium [place] 2 puff 09/08/18 13:00 09/12/18 10:13 Spiriva Respimat IH 2 puff DAILY [facility] Administration ASSESSMENT/PLAN: Patient is a 78 year old female with a significant past medical history of HTN, HLD, CAD s/p stent, L breast CA (stage 1) and COPD. [facility] with UTI and hyponatremia on labs. Developed shortness of breath and intubated on admission for airway protection, extubated on 08/28/18. Hospitalization further complicated when patient had acute shortness of breath despite supplemental oxygen, duonebs and steriods and was monitored in the icu. She has been downgraded to tele and is currently improving. she is able to tolerate episodes of room with supplemental oxygen. Pulmonary: Acute hypoxic hypercapnic respiratory failure COPD exacerbation/pneumonia. Oxygen more stable and tolerating room air. On prednisone taper and bipap. Maintain oxygen saturations above 90% Continuous pulse oxygen monitoring and noctural bipap. Card: Elevated troponins. On ASA 81mg, Crestor 10mg, Trilipix 135 qd cardiology following, notes reviewed. Hypertension: Bystolic 10 mg QD, Norvasc 5 mg QD and Ramipril 10 mg BID controlled Hematology: Thrombocytopenia and anemia. Abdomen u/s shows fatty liver. Platelets below baseline. she is s/p heparin drip for elevated troponins for 1 unit of prbc today Hematology following Skin: Bilateral skin tears Start prosource, on multivitamins. supplements. dietary consult Renal: Initially hyponatremic, now resolved. fen tolerating PO monitor electrolytes prophy: SCDs PPI. Visit type - Emergency Visit Emergency Visit: Yes ED Registration Date: 08/26/18 Care time: The patient presented to the Emergency Department on the above date and was hospitalized for further evaluation of their emergent condition. - New Patient This patient is new to me today: No - Critical Care Critical Care patient: No - Discharge Referral Referred to [facility] Med [facility] No
[2018-09-12] MEDS: ROSUVASTATIN CA 10 MG TABLET (FP) PO SCH (22:23)
[2018-09-12] MEDS: CHLORHEXIDINE GLUCONATE 4% CLEANSER FOR DECOLONIZATION TP SCH (22:24)
[2018-09-13] MEDS ORDERED: AMINO ACIDS/PROTEIN HYDROLYS 30 ML LIQUID.PKT PO SCH (08:00)
[2018-09-13 08:06] LABS: BASO % 0.2 % (0-2.0); HEMATOCRIT 26.7 % (32.4-45.2); HEMOGLOBIN 9.3 GM/dL (10.7-15.3); LYMPH % 2.9 % (8-40); MCH 33.5 pg (25.7-33.7); MCHC 34.8 g/dl (32.0-36.0); MEAN CELL VOLUME 96.4 fl (80-96); MEAN PLT VOLUME 10.2 fl (7.5-11.1); MONO % 2.1 % (3.8-10.2); NEUT % 94.8 % (42.8-82.8); PLATELET COUNT 93 K/MM3 (134-434); RBC 2.77 M/mm3 (3.60-5.2); RDW 19.1 % (11.6-15.6); WHITE BLOOD COUNT 12.8 K/mm3 (4.0-10.0)
[2018-09-13 08:18] LABS: ALBUMIN 2.5 g/dl (3.4-5.0); ALK PHOS 147 U/L (45-117); ANION GAP 6 MMOL/L (8-16); BILIRUBIN,TOTAL 1.2 mg/dL (0.2-1); BLOOD UREA NITROGEN 41 mg/dL (7-18); CHLORIDE 107 mmol/L (98-107); CO2 31 mmol/L (21-32); CREATININE 0.9 mg/dL (0.55-1.3); GLUCOSE,RANDOM 179 mg/dL (74-106); MAGNESIUM 1.8 mg/dL (1.8-2.4); POTASSIUM 3.9 mmol/L (3.5-5.1); SGOT/AST 104 U/L (15-37); SGPT/ALT 207 U/L (13-61); SODIUM 143 mmol/L (136-145); TOT PROT 4.9 g/dl (6.4-8.2)
[2018-09-13] MEDS: predniSONE 20 MG TABLET (UD) PO SCH (09:42)
[2018-09-13] MEDS: amLODIPine BESYLATE 5 MG TABLET (FP) PO SCH (09:42)
[2018-09-13] MEDS: ASPIRIN 81 MG CHEWABLE TABLETS PO SCH (09:42)
[2018-09-13] MEDS: MULTIVITAMINS (DAILY MVI) TABLET (FP) PO SCH (09:42)
[2018-09-13] MEDS: RAMIPRIL 5 MG CAPSULE (FP) PO SCH (09:42)
[2018-09-13] MEDS: NEBIVOLOL 10 MG TABLET (FP) PO SCH (09:42)
[2018-09-13] MEDS: FENOFIBRIC ACID 135 MG CAP PO SCH (09:42)
[2018-09-13] MEDS: BUDESONIDE/FORMETEROL FUMARATE 160/4.5 mcg INHALER IH SCH (09:45)
[2018-09-13] MEDS: TIOTROPIUM BROMIDE 2.5 MCG (SPIRIVA) RESPIMAT INHALER IH SCH (09:45)
--- NOTE | 2018-09-13 09:58 | PN ---
Progress Note, Physician History of Present Illness: Breathing improved now off NC. BP control improved. Post 1 U pRBC. - Current Medication List Current Medications: Active Medications Acetaminophen (Tylenol Oral Solution -) 650 mg PO Q6H PRN PRN Reason: FEVER Albuterol Sulfate (Ventolin 0.083% Nebulizer Soln -) 1 amp NEB Q4H PRN PRN Reason: SHORT OF BREATH/WHEEZING Last Admin: 09/09/18 10:50 Dose: 1 amp Alprazolam (Xanax -) 0.25 mg PO Q6H PRN PRN Reason: ANXIETY Last Admin: 09/11/18 21:57 Dose: 0.25 mg Amino Acids (Prosource No Carb Liquid Pkt) 30 ml PO BID@0800,1730 [facility] Last Admin: 09/13/18 09:45 Dose: 30 ml Amlodipine Besylate (Norvasc -) 5 mg PO DAILY [facility] Last Admin: 09/13/18 09:42 Dose: 5 mg Aspirin (Asa -) 81 mg PO DAILY [facility] Last Admin: 09/13/18 09:42 Dose: 81 mg Budesonide/Formoterol Fumarate (Symbicort 160/4.5mcg -) 2 puff IH BID [facility] Last Admin: 09/13/18 09:45 Dose: 2 puff Chlorhexidine Gluconate (Hibiclens For Decolonization -) 1 applic TP HS [facility] Last Admin: 09/12/18 22:24 Dose: Not Given Fenofibric Acid (Trilipix -) 135 mg PO DAILY [facility] Last Admin: 09/13/18 09:42 Dose: 135 mg Multivitamins/Minerals/Vitamin C (Tab-A-Vit -) 1 tab PO DAILY [facility] Last Admin: 09/13/18 09:42 Dose: 1 tab Nebivolol (Bystolic -) 10 mg PO DAILY [facility] Last Admin: 09/13/18 09:42 Dose: 10 mg Prednisone (Deltasone -) 40 mg PO BID [facility] Last Admin: 09/13/18 09:42 Dose: 40 mg Ramipril (Altace -) 10 mg PO BID [facility] Last Admin: 09/13/18 09:42 Dose: 10 mg Tiotropium [place] (Spiriva Respimat) 2 puff IH DAILY [facility] Last Admin: 09/13/18 09:45 Dose: 2 puff - Objective Vital Signs: Vital Signs Temperature 97.7 F 09/13/18 06:00 Pulse Rate 72 09/13/18 06:00 Respiratory Rate 18 09/13/18 06:00 Blood Pressure 136/88 09/13/18 06:00 O2 Sat by Pulse Oximetry (%) 96 09/12/18 21:00 Constitutional: Yes: No Distress, Calm, Thin Neck: Yes: Supple Cardiovascular: Yes: Regular Rate and Rhythm Respiratory: Yes: Regular, On Nasal O2 Gastrointestinal: Yes: Normal Bowel Sounds, Soft Edema: No Labs: CBC, BMP 09/13/18 05:30 09/13/18 05:30 INR, PTT INR 1.13 (0.83-1.09) H 09/11/18 05:30 - ....Imaging EKG: Report Reviewed (Tele: NSR) Problem List - Problems (1) Demand ischemia Code(s): I24.8 - OTHER FORMS OF ACUTE ISCHEMIC HEART DISEASE (2) Acute respiratory failure Code(s): J96.00 - ACUTE RESPIRATORY FAILURE, UNSP W HYPOXIA OR HYPERCAPNIA (3) CAD (coronary artery disease) Code(s): I25.10 - ATHSCL HEART DISEASE OF [place] CORONARY ARTERY W/O ANG PCTRS Qualifiers: Coronary Disease-Associated Artery/Lesion type: [place] artery [place] vs. transplanted heart: [place] heart Associated angina: without angina Qualified Code(s): I25.10 - Atherosclerotic heart disease of [place] coronary artery without angina pectoris (4) COPD exacerbation Code(s): J44.1 - CHRONIC OBSTRUCTIVE PULMONARY DISEASE W (ACUTE) EXACERBATION (5) HLD (hyperlipidemia) Code(s): E78.5 - HYPERLIPIDEMIA, UNSPECIFIED Qualifiers: Hyperlipidemia type: mixed hyperlipidemia Qualified Code(s): E78.2 - Mixed hyperlipidemia (6) HTN (hypertension) Code(s): I10 - ESSENTIAL (PRIMARY) HYPERTENSION Qualifiers: Hypertension type: essential hypertension Qualified Code(s): I10 - Essential (primary) hypertension (7) PSVT (paroxysmal supraventricular tachycardia) Code(s): I47.1 - SUPRAVENTRICULAR TACHYCARDIA (8) UTI (urinary tract infection) Code(s): N39.0 - URINARY TRACT INFECTION, SITE NOT SPECIFIED Qualifiers: Urinary tract infection type: site unspecified Hematuria presence: without hematuria Qualified Code(s): N39.0 - Urinary tract infection, site not specified (9) Abnormal LFTs Code(s): R94.5 - ABNORMAL RESULTS OF LIVER FUNCTION STUDIES Assessment/Plan 08/28/2018 Echo: Low normal LV fxn, normal RV size and fxn, mild AR 1. Post acute respiratory failure due to acute exacerbation of COPD +/- PNA 2. CAD s/p PCI/stent 3. HTN 4. Hypercholesterolemia 5. PSVT now in sinus rhythm 6. Generalized weakness and unsteady gait 7. History of left breast CA (Stage 1, RT, 1999) 8. UTI 9. Anemia of chronic disease and thrombocytopenia 10. Hyponatremia, resolved 11. Demand ischemia 12. Abnl LFTs PLAN: 1. O2 as needed to maintain saturation and CPAP, bronchodilator and oral steroid taper with monitor respiratory status 2. Continue ASA 81 mg QD, d/c Crestor 10 mg QHS and Trilipix 135 mg QD pending LFT resolution 3. Continue Bystolic 10 mg QD, Norvasc 5 mg QD and Ramipril 10 mg BID as hemodynamics tolerate 4. Transfuse as needed to maintain Hgb>8.0 Barge Pilot: Severiano Bond MD. [facility]
--- NOTE | 2018-09-13 12:03 | PN ---
Progress Note (short form) - Note Progress Note: Awake and alert and appears more comfortable on NC O2. No CP. BOWEN is slowly improving. S/P PRBCs transfusion yesterday. Intake & Output 09/10/18 09/11/18 09/12/18 09/13/18 23:59 23:59 23:59 23:59 Intake Total 989 538 1654 210 Balance 835 096 5859 210 Weight 96 lb 12.8 oz 96 lb 95 lb 14.4 oz Last Vital Signs Temp Pulse Resp BP Pulse Ox 97.7 F 72 18 136/88 96 09/13/18 06:00 09/13/18 06:00 09/13/18 06:00 09/13/18 06:00 09/12/18 21:00 Active Medications Acetaminophen (Tylenol Oral Solution -) 650 mg PO Q6H PRN PRN Reason: FEVER Albuterol Sulfate (Ventolin 0.083% Nebulizer Soln -) 1 amp NEB Q4H PRN PRN Reason: SHORT OF BREATH/WHEEZING Last Admin: 09/09/18 10:50 Dose: 1 amp Alprazolam (Xanax -) 0.25 mg PO Q6H PRN PRN Reason: ANXIETY Last Admin: 09/11/18 21:57 Dose: 0.25 mg Amino Acids (Prosource No Carb Liquid Pkt) 30 ml PO BID@0800,1730 [facility] Last Admin: 09/13/18 09:45 Dose: 30 ml Amlodipine Besylate (Norvasc -) 5 mg PO DAILY [facility] Last Admin: 09/13/18 09:42 Dose: 5 mg Aspirin (Asa -) 81 mg PO DAILY [facility] Last Admin: 09/13/18 09:42 Dose: 81 mg Budesonide/Formoterol Fumarate (Symbicort 160/4.5mcg -) 2 puff IH BID [facility] Last Admin: 09/13/18 09:45 Dose: 2 puff Chlorhexidine Gluconate (Hibiclens For Decolonization -) 1 applic TP HS [facility] Last Admin: 09/12/18 22:24 Dose: Not Given Multivitamins/Minerals/Vitamin C (Tab-A-Vit -) 1 tab PO DAILY [facility] Last Admin: 09/13/18 09:42 Dose: 1 tab Nebivolol (Bystolic -) 10 mg PO DAILY [facility] Last Admin: 09/13/18 09:42 Dose: 10 mg Prednisone (Deltasone -) 40 mg PO BID [facility] Last Admin: 09/13/18 09:42 Dose: 40 mg Ramipril (Altace -) 10 mg PO BID [facility] Last Admin: 09/13/18 09:42 Dose: 10 mg Tiotropium [place] (Spiriva Respimat) 2 puff IH DAILY [facility] Last Admin: 09/13/18 09:45 Dose: 2 puff Constitutional: Yes: Awake and alert, Less tachypneic at rest Eyes: Yes: Conjunctiva Clear HENT: Yes: Atraumatic, Normocephalic Neck: Yes: Supple, Trachea Midline Cardiovascular: Yes: Tachycardia, S1, S2. No: JVD Respiratory: Yes: No expiratory wheeze appreciated, scattered rhonchi Gastrointestinal: Yes: Normal Bowel Sounds, Soft Edema: No Integumentary: Yes: Skin Tear / bruising Labs: Laboratory Results - last 24 hr 09/11/18 09/12/18 09/13/18 05:30 09:50 05:30 WBC RBC Hgb Hct MCV MCH MCHC RDW Plt Count MPV Absolute Neuts (auto) Neutrophils % Lymphocytes % Monocytes % Eosinophils % Basophils % Nucleated RBC % Sodium Potassium Chloride Carbon Dioxide Anion Gap BUN Creatinine Creat Clearance w eGFR Random Glucose Calcium Magnesium Total Bilirubin AST ALT Alkaline Phosphatase Ammonia 37.52 H Total Protein Albumin Stool Occult Blood Heparin-Ind Plt Ab Scrn 0.160 Blood Type O POSITIVE Antibody Screen Negative Crossmatch See Detail 09/13/18 09/13/18 09/13/18 05:30 05:30 11:00 WBC 12.8 H RBC 2.77 L Hgb 9.3 L Hct 26.7 L D MCV 96.4 H MCH 33.5 MCHC 34.8 RDW 19.1 H Plt Count 93 L MPV 10.2 Absolute Neuts (auto) 12.1 H Neutrophils % 94.8 H Lymphocytes % 2.9 L Monocytes % 2.1 L Eosinophils % 0.0 Basophils % 0.2 Nucleated RBC % 0 Sodium 143 Potassium 3.9 Chloride 107 Carbon Dioxide 31 Anion Gap 6 L BUN 41 H Creatinine 0.9 Creat Clearance w eGFR > 60 Random Glucose 179 H Calcium 8.0 L Magnesium 1.8 Total Bilirubin 1.2 H AST 104 H ALT 207 H Alkaline Phosphatase 147 H Ammonia Total Protein 4.9 L Albumin 2.5 L Stool Occult Blood Negative Heparin-Ind Plt Ab Scrn Blood Type Antibody Screen Crossmatch Assessment/Plan Acute Respiratory Failure due to AE of COPD Low clinical suspicion of Pulmonary edema Septic Shock: (?) PNA (?) UTI HTN HLD CAD s/p PCI Left Breast Ca (Stage 1, RT, 1999) Smoker Acute Delerium Spiriva Symbicort BID O2 as needed to maintain saturation BD TX Change prednisone to OD PT / OOB to chair No smoking Consider inpatient Pulmonary Rehab Dr Macedo
[2018-09-13 13:18] LABS: ANISOCYTOSIS 1+; MACROCYTOSIS 1+; PLATELET ESTIMATE DECREASED
--- NOTE | 2018-09-13 13:19 | DS ---
Physical Exam: SUBJECTIVE: Patient seen and examined at the bedside. present and aware and agrees to discharge. OBJECTIVE: discharge to [facility] Vital Signs Period Temp Pulse Resp BP Sys/Prakash Pulse Ox Last 24 Hr 97.7 F-99.0 F 64-72 18-20 125-149/56-88 96-100 PHYSICAL EXAM GENERAL: The patient is awake, alert, episodes of confusion but mental status overall improved HEAD: Normal with no signs of trauma. EYES: PERRL, extraocular movements intact, sclera anicteric, conjunctiva clear. No ptosis. ENT: Ears normal, nares patent, oropharynx clear without exudates, moist mucous membranes. NECK: Trachea midline, full range of motion, supple. LUNGS: diminished but clear HEART: Regular rate and rhythm, S1, S2 without murmur, rub or gallop. ABDOMEN: Soft, nontender, nondistended, normoactive bowel sounds, no guarding, no rebound, no hepatosplenomegaly, no masses. EXTREMITIES: no edema. NEUROLOGICAL: Normal speech, gait not observed. PSYCH: Normal mood, normal affect. SKIN: bilateral lower ext skin tears - wrapped LABS Laboratory Results - last 24 hr 09/11/18 09/12/18 09/13/18 05:30 09:50 05:30 WBC RBC Hgb Hct MCV MCH MCHC RDW Plt Count MPV Absolute Neuts (auto) Neutrophils % Lymphocytes % Monocytes % Eosinophils % Basophils % Nucleated RBC % Sodium Potassium Chloride Carbon Dioxide Anion Gap BUN Creatinine Creat Clearance w eGFR Random Glucose Calcium Magnesium Total Bilirubin AST ALT Alkaline Phosphatase Ammonia 37.52 H Total Protein Albumin Stool Occult Blood Heparin-Ind Plt Ab Scrn 0.160 Blood Type O POSITIVE Antibody Screen Negative Crossmatch See Detail 09/13/18 09/13/18 09/13/18 05:30 05:30 11:00 WBC 12.8 H RBC 2.77 L Hgb 9.3 L Hct 26.7 L D MCV 96.4 H MCH 33.5 MCHC 34.8 RDW 19.1 H Plt Count 93 L MPV 10.2 Absolute Neuts (auto) 12.1 H Neutrophils % 94.8 H Lymphocytes % 2.9 L Monocytes % 2.1 L Eosinophils % 0.0 Basophils % 0.2 Nucleated RBC % 0 Sodium 143 Potassium 3.9 Chloride 107 Carbon Dioxide 31 Anion Gap 6 L BUN 41 H Creatinine 0.9 Creat Clearance w eGFR > 60 Random Glucose 179 H Calcium 8.0 L Magnesium 1.8 Total Bilirubin 1.2 H AST 104 H ALT 207 H Alkaline Phosphatase 147 H Ammonia Total Protein 4.9 L Albumin 2.5 L Stool Occult Blood Negative Heparin-Ind Plt Ab Scrn Blood Type Antibody Screen Crossmatch HOSPITAL COURSE: Date of Admission:08/26/18 Date of Discharge: 09/13/18 Patient is a 78 year old female with a significant past medical history of HTN, HLD, CAD s/p stent, L breast CA (stage 1) and COPD. She is an everyday smoker - 1 pack per day. Initially presented to [place] with UTI and hyponatremia on labs. Developed shortness of breath and intubated on admission for airway protection, extubated on 08/28/18. Hospitalization further complicated when patient had acute shortness of breath despite supplemental oxygen, duonebs and steriods and was again monitored in the ICU. She has been downgraded to telemonitoring and is currently improving. She is able to tolerate episodes of room air and alternates with 2 liters of nasal cannula and nocturnal BiPaP. Pulmonary: Acute hypoxic hypercapnic respiratory failure. resolved. COPD exacerbation/pneumonia. Treated and resolved. Oxygen more stable and tolerating room air. Alternates with 2 liters of nasal cannula and nocturnal bipap. On prednisone taper, now on Prednisone 40mg daily with a slow taper as tolerated. Maintain oxygen saturations above 90%. Follow up with transfer worker as an outpatient. Pulmonary rehab recommended. Card: Elevated troponins. On ASA 81mg, Crestor 10mg, Trilipix 135 qd (currently off statin) cardiology followed during hospitalization and patient advised to continue Bystolic 10 mg QD, Norvasc 5 mg QD and Ramipril 10 mg BID Blood pressure is controlled. Hematology: Thrombocytopenia and anemia. Abdomen u/s shows fatty liver. Platelets below baseline but improved. She is recommended to have her CBC and CMP drawn for close monitoring. Has received 1 unit of blood during her hospital stay. Hematology follow-up as an outpatient. GI: Elevated AST/ALT in the setting of history of ETOH abuse Discontinue Crestor and Tripilix and monitor liver enzymes. Restart statin therapy once liver enzymes stabilize. Skin: Bilateral skin tears Start prosource, on multivitamins. supplements. Daily wound care Renal: Initially hyponatremic, now resolved. Discharge to rehab and follow up outpatient. Minutes to complete discharge: 60 Discharge Summary Reason For Visit: RESPIRATORY FAILURE Current Active Problems Abnormal LFTs (Acute) Acute respiratory failure (Acute) Acute respiratory failure with hypoxia and hypercapnia (Acute) Breast CA (Acute) CAD (coronary artery disease) (Acute) COPD exacerbation (Acute) Demand ischemia (Acute) Generalized weakness (Acute) HLD (hyperlipidemia) (Acute) HTN (hypertension) (Acute) Hypomagnesemia (Acute) Hyponatremia (Acute) PSVT (paroxysmal supraventricular tachycardia) (Acute) Pleural effusion, right (Acute) Pneumonia (Acute) UTI (urinary tract infection) (Acute) Condition: Stable - Instructions Diet, Activity, Other Instructions: Mrs Waterman: You were admitted on 08/26/2018 to [facility] for respiratory failure. You were evaluated by distribution specialist, painter and body mechanic apprentice and keg filler. Here are our recommendations: Pulmonary You came in for respiratory distress and you were intubated on admission. Your respiratory status is now stable, but you still need oxygen at 2 liters as needed as well as bipap therapy at night. We recommend that you follow up with a transfer worker as an outpatient so that you can be monitored closely. I have enclosed their information in your discharge paperwork Continue the oxygen therapy, CPAP and bronchodilators. You were also put on Prednisone 40mg daily. You should continue this dose and taper off slowly. Cardiology: Continue taking the Aspirin 81mg daily Do not take the Crestor or Triplix for now because your liver enzymes are still elevated. We did a ultrasound of your liver which shows a fatty liver. You will need to repeat your liver enzyme panel and if they are back to normal, you can start back on your Crestor 10mg daily and Triplipix 135mg daily. Continue the Bystolic 10mg daily. Norvasc 5mg daily and Rampiril 10mg twice per day Hematology: During your stay we also gave you a blood transfusion for low hemaglobin and low hematocrit. We had you evaluated with hematology and they would like to see you as an outpatient. I have enclosed their information. Your platelets are low at 93, but we expect them to recover once you are back to your baseline function. Again, it is important that you see a keg filler so that they can monitor you closely. Skin Tears you have skin tears on your lower legs. We have been cleaning them daily and applying a non stick dressing. We have started you on ProSource which is a high protein supplement to help your skin heal faster. Thank you for allowing us to care for you: Follow ups: Follow up with hematology within 1-2 weeks after discharge Follow up with pulmonary as they would like for you to do pulmonary rehab. Referrals: Christophe Quintana MD [Staff Physician] - 1 Week Buddy Weaver MD [Primary Care Provider] - Edouard García MD [Staff Physician] - 1 Week Tiago Moran MD [Staff Physician] - 1 Week Disposition: NURSING HOME FACILITY - Home Medications Comprehensive Discharge Medication List: Ambulatory Orders Aspirin [ASA -] 81 mg PO DAILY 02/23/17 Multivitamin [One Daily] 1 each PO DAILY 02/23/17 Albuterol 0.083% Nebulizer Billie [Ventolin 0.083% Nebulizer Soln -] 1 amp NEB Q4H PRN amp 09/13/18 Amino Acids/Protein Hydrolys [Prosource No Carb Liquid Pkt] 30 ml PO BID@0800, 1730 packet 09/13/18 Amlodipine Besylate [Norvasc -] 5 mg PO DAILY tablet 09/13/18 Budesonide/Formeterol Fumarate [SYMBICORT 160/4.5mcg -] 2 puff IH BID inhaler 09/13/18 Nebivolol [Bystolic -] 10 mg PO DAILY tab 09/13/18 Ramipril [Altace] 10 mg PO BID capsule 09/13/18 Tiotropium [place] [Spiriva Respimat] 2 puff IH DAILY inhaler 09/13/18 predniSONE [Deltasone -] 40 mg PO DAILY tablet 09/13/18 This patient is new to me today: No Emergency Visit: Yes ED Registration Date: 08/26/18 Care time: The patient presented to the Emergency Department on the above date and was hospitalized for further evaluation of their emergent condition. Critical Care patient: No - Discharge Referral Referred to [facility] Med P.C.: No
[2018-09-13 13:26] VITALS: PULSE 70
--- NOTE | 2018-09-13 15:03 | PN ---
Physical Exam: SUBJECTIVE: Patient seen and examined; breathing improved; confusion improved; s /p 1UPRBC with adequate response OBJECTIVE: Vital Signs Period Temp Pulse Resp BP Sys/Prakash Pulse Ox Last 24 Hr 97.7 F-99.0 F 64-72 18-20 125-145/56-88 96-100 GENERAL: The patient is awake, alert, and fully oriented, in no acute distress. LUNGS: crackles b/l ;improved HEART: Regular rate and rhythm, S1, S2 without murmur, rub or gallop. ABDOMEN: Soft, nontender, nondistended, normoactive bowel sounds, no guarding, no rebound, no hepatosplenomegaly, no masses. EXTREMITIES: 2+ pulses, warm, well-perfused, no edema. NEUROLOGICAL: confusion improved compared to yesterday; speaking in clearer/ longer sentances; AAox3 SKIN: scattered ecchymosis; RUE ; bilateral LE Laboratory Results - last 24 hr 09/11/18 09/12/18 09/12/18 05:30 05:30 09:50 WBC RBC Hgb Hct MCV MCH MCHC RDW Plt Count MPV Absolute Neuts (auto) Neutrophils % Neutrophils % (Manual) Band Neutrophils % Lymphocytes % Lymphocytes % (Manual) Monocytes % Monocytes % (Manual) Eosinophils % Eosinophils % (Manual) Basophils % Basophils % (Manual) Myelocytes % (Man) Promyelocytes % (Man) Blast Cells % (Manual) Nucleated RBC % Metamyelocytes Hypochromia Platelet Estimate Polychromasia Poikilocytosis Anisocytosis Microcytosis Macrocytosis Haptoglobin 28 L Sodium Potassium Chloride Carbon Dioxide Anion Gap BUN Creatinine Creat Clearance w eGFR Random Glucose Calcium Magnesium Total Bilirubin AST ALT Alkaline Phosphatase Ammonia Total Protein Albumin Stool Occult Blood Heparin-Ind Plt Ab Scrn 0.160 Blood Type O POSITIVE Antibody Screen Negative Crossmatch See Detail 09/13/18 09/13/18 09/13/18 05:30 05:30 05:30 WBC 12.8 H RBC 2.77 L Hgb 9.3 L Hct 26.7 L D MCV 96.4 H MCH 33.5 MCHC 34.8 RDW 19.1 H Plt Count 93 L MPV 10.2 Absolute Neuts (auto) 12.1 H Neutrophils % 94.8 H Neutrophils % (Manual) 97.0 H Band Neutrophils % 0.0 Lymphocytes % 2.9 L Lymphocytes % (Manual) 1.0 L D Monocytes % 2.1 L Monocytes % (Manual) 2 L D Eosinophils % 0.0 Eosinophils % (Manual) 0.0 Basophils % 0.2 Basophils % (Manual) 0.0 Myelocytes % (Man) 0 Promyelocytes % (Man) 0 Blast Cells % (Manual) 0 Nucleated RBC % 0 Metamyelocytes 0 Hypochromia 0 Platelet Estimate Decreased Polychromasia 0 Poikilocytosis 0 Anisocytosis 1+ Microcytosis 0 Macrocytosis 1+ Haptoglobin Sodium 143 Potassium 3.9 Chloride 107 Carbon Dioxide 31 Anion Gap 6 L BUN 41 H Creatinine 0.9 Creat Clearance w eGFR > 60 Random Glucose 179 H Calcium 8.0 L Magnesium 1.8 Total Bilirubin 1.2 H AST 104 H ALT 207 H Alkaline Phosphatase 147 H Ammonia 37.52 H Total Protein 4.9 L Albumin 2.5 L Stool Occult Blood Heparin-Ind Plt Ab Scrn Blood Type Antibody Screen Crossmatch 09/13/18 11:00 WBC RBC Hgb Hct MCV MCH MCHC RDW Plt Count MPV Absolute Neuts (auto) Neutrophils % Neutrophils % (Manual) Band Neutrophils % Lymphocytes % Lymphocytes % (Manual) Monocytes % Monocytes % (Manual) Eosinophils % Eosinophils % (Manual) Basophils % Basophils % (Manual) Myelocytes % (Man) Promyelocytes % (Man) Blast Cells % (Manual) Nucleated RBC % Metamyelocytes Hypochromia Platelet Estimate Polychromasia Poikilocytosis Anisocytosis Microcytosis Macrocytosis Haptoglobin Sodium Potassium Chloride Carbon Dioxide Anion Gap BUN Creatinine Creat Clearance w eGFR Random Glucose Calcium Magnesium Total Bilirubin AST ALT Alkaline Phosphatase Ammonia Total Protein Albumin Stool Occult Blood Negative Heparin-Ind Plt Ab Scrn Blood Type Antibody Screen Crossmatch Active Medications Generic Name Dose Route Start Last Admin Trade Name Freq PRN Reason Stop Dose Admin Acetaminophen 650 mg 09/06/18 11:50 Tylenol Oral Solution - PO Q6H PRN FEVER Albuterol Sulfate 1 amp 09/08/18 12:57 09/09/18 10:50 Ventolin 0.083% Nebulizer Soln - NEB 1 amp Q4H PRN Administration SHORT OF BREATH/WHEEZING Alprazolam 0.25 mg 09/06/18 11:50 09/11/18 21:57 Xanax - PO 0.25 mg Q6H PRN Administration ANXIETY Amino Acids 30 ml 09/13/18 08:00 09/13/18 09:45 Prosource No Carb Liquid Pkt PO 30 ml BID@0800,1730 [place] Administration Amlodipine Besylate 5 mg 09/05/18 16:00 09/13/18 09:42 Norvasc - PO 5 mg DAILY [place] Administration Aspirin 81 mg 09/07/18 10:00 09/13/18 09:42 Asa - PO 81 mg DAILY [place] Administration Budesonide/Formoterol Fumarate 2 puff 09/08/18 13:00 09/13/18 09:45 Symbicort 160/4.5mcg - IH 2 puff BID [place] Administration Chlorhexidine Gluconate 1 applic 09/06/18 22:00 09/12/18 22:24 Hibiclens For Decolonization - TP Not Given HS [facility] Multivitamins/Minerals/Vitamin C 1 tab 09/07/18 10:00 09/13/18 09:42 Tab-A-Vit - PO 1 tab DAILY [place] Administration Nebivolol 10 mg 09/10/18 09:05 09/13/18 09:42 Bystolic - PO 10 mg DAILY [place] Administration Pantoprazole Sodium 40 mg 09/14/18 10:00 Protonix - PO DAILY [place] Prednisone 40 mg 09/14/18 10:00 Deltasone - PO DAILY [place] Ramipril 10 mg 09/06/18 22:00 09/13/18 09:42 Altace - PO 10 mg BID [place] Administration Tiotropium [place] 2 puff 09/08/18 13:00 09/13/18 09:45 Spiriva Respimat IH 2 puff DAILY [place] Administration ASSESSMENT/PLAN: This is a 78 year old female CAD, COPD,breast ca (stage 1, RT in 1999), who came in with acute hypoxic respiratory failure and septic shock due to possible PNA, s/p intubation, called to evaluate for thrombocytopenia and anemia Thrombocytopenia macrocytic anemia delerium/ resolving Acute hypoxic respiratory failure secondary to PNA/COPD acute COPD exacerbation septic shock; now resolving transaminitis CHF HTN HLD hx breast CA -transfuse 1U PRBC; f/u CBC: -haptoglobin decreased; can be due to liver cirrhosis -abdominal US reveal fatty liver vs hepatocellular dz; elevated lfts; elevated ammonia; can contribute to her confusion; ammonia increase --recommend hepatitis panel -rec GI work up -case discussed with primary in detail -flow cytology, FISH, cytogenetics, pending -HIT negative Visit type - Emergency Visit Emergency Visit: Yes ED Registration Date: 08/26/18 Care time: The patient presented to the Emergency Department on the above date and was hospitalized for further evaluation of their emergent condition. - New Patient This patient is new to me today: No - Critical Care Critical Care patient: No
[2018-09-13 15:46] VITALS: BP 123/50; TEMP 98
[2018-09-14] MEDS ORDERED: predniSONE 20 MG TABLET (UD) PO SCH (10:00)
[2018-09-14] MEDS ORDERED: PANTOPRAZOLE 40 MG TABLET (FP) PO SCH (10:00)
--- NOTE | 2018-09-14 16:36 | PATH ---
Surgical Pathology Report Patient Name: SIDRA OSEGUERA [facility]. Rec. #: [id number] /Age/Gender: 1940 (Age: 78) / F Account: [id number] Location: 4 W TELEMETRY U Taken: 09/12/2018 Received: 09/12/2018 Reported: 09/14/2018 Physicians: Wilfrido Luna M.D. Specimen(s) Received 2 GREEN TOPS Clinical History Anemia Final Diagnosis [facility] [place] [place] shows the following: INTERPRETATION: GRANULOCYTOSIS WITH NO DISCRETE ATYPICAL FLOW CYTOMETRIC FINDINGS SEEN. MYELODYSPLASIA FISH PANEL performed and interpreted at [place], [place] shows the following: INTERPRETATION: No evidence of deletion 5q or monosomy 5 is present. No evidence of deletion 7q or monosomy 7 is present. No evidence of trisomy 8 (+8) is present. No evidence of deletion 13q14.2 is present. No evidence of rearrangement of 11q23. No evidence of a deletion of the p53 (17p13) locus. No evidence of deletion 20q12 is present Comment: Correlation with pending cytogenetics ([id number]) is recommended. See Emerge report ([id number] and [id number]) for additional details. Electronically Signed Katarina Ha M.D. Addendum Reported: 09/19/2018 Addendum Diagnosis CYTOGENETIC KARYOTYPE ANALYSIS performed and interpreted at [facility] shows the following: RESULTS: Tissue Culture Failure INTERPRETATION: This peripheral blood specimen did not produce any analyzable metaphase cells and, therefore, chromosome analysis is not possible. A bone marrow aspirate, when clinically appropriate, is recommended. See Emerge report for additional details ([id number]). Katarina Ha M.D. Gross Description Received are 2 green top tubes of peripheral blood which are sent to [facility]. DL/09/12/2018 saudi09/12/2018
== END 2018-09-13 16:56 | DRG 208 ==
LOC: FER 17:29 → FM/S 23:13 → OBSVTOIN 08-26 12:44 → JICU 08-27 00:15 → J2W 08-29 18:37 → JICU 08-29 21:58 → J4W 08-30 18:20 → JICU 09-01 20:30 → J4W 09-06 18:16
PROVIDERS: ADMIT Internal Medicine; ATTEND Nurse Practitioner Family
PROC: 0CHY7BZ Insertion of Airway into Mouth and Throat, Via Natural or Artificial Opening (ICD-10-PCS; principal; 2018-08-26)
PROC: 5A1945Z Respiratory Ventilation, 24-96 Consecutive Hours (ICD-10-PCS; 2018-08-26)
PROC: 5A09357 Assistance with Respiratory Ventilation, Less than 24 Consecutive Hours, Continuous Positive Airway Pressure (ICD-10-PCS; 2018-08-26)
PROC: 3E0F7GC Introduction of Other Therapeutic Substance into Respiratory Tract, Via Natural or Artificial Opening (ICD-10-PCS; 2018-08-26)
PROC: 05HM33Z Insertion of Infusion Device into Right Internal Jugular Vein, Percutaneous Approach (ICD-10-PCS; 2018-08-27)
PROC: 30233N1 Transfusion of Nonautologous Red Blood Cells into Peripheral Vein, Percutaneous Approach (ICD-10-PCS; 2018-09-13)
DX: J44.1 Chronic obstructive pulmonary disease with (acute) exacerbation (principal); J96.01 Acute respiratory failure with hypoxia; J18.9 Pneumonia, unspecified organism; J81.0 Acute pulmonary edema; J96.02 Acute respiratory failure with hypercapnia; A41.9 Sepsis, unspecified organism; R65.21 Severe sepsis with septic shock; E87.1 Hypo-osmolality and hyponatremia; N39.0 Urinary tract infection, site not specified; N17.9 Acute kidney failure, unspecified; I24.8 Other forms of acute ischemic heart disease; E46 Unspecified protein-calorie malnutrition; Z68.1 Body mass index [BMI] 19.9 or less, adult; E87.2 Acidosis; I47.1 Supraventricular tachycardia; R64 Cachexia; E83.42 Hypomagnesemia; I95.9 Hypotension, unspecified; I10 Essential (primary) hypertension; D69.6 Thrombocytopenia, unspecified; D53.9 Nutritional anemia, unspecified; E78.5 Hyperlipidemia, unspecified; E86.0 Dehydration; F10.10 Alcohol abuse, uncomplicated; I25.10 Atherosclerotic heart disease of native coronary artery without angina pectoris; Z95.5 Presence of coronary angioplasty implant and graft; Z85.3 Personal history of malignant neoplasm of breast; F17.210 Nicotine dependence, cigarettes, uncomplicated; N89.8 Other specified noninflammatory disorders of vagina; Z96.653 Presence of artificial knee joint, bilateral; Z80.49 Family history of malignant neoplasm of other genital organs; Z78.1 Physical restraint status
CPT/HCPCS: 36415; 36430; 36600; 70450-TC; 71045-TC-FY; 74176-TC; 76700-TC; 80048; 80053; 81003; 81015; 82140; 82272; 82436; 82550; 82607; 82728; 82746; 82803; 82962; 83010; 83540; 83550; 83615; 83735; 83930; 83935; 84100; 84133; 84300; 84443; 84484; 85025; 85027; 85044; 85610; 85651; 85730; 86022; 86140; 86850; 86900; 86901; 86922; 87040; 87070; 87077; 87086; 87205; 87324; 87449; 87804; 87899; 88300-TC; 93005; 93010; 93306-TC; 94002; 94640; 94660; 94761; 97116-GP; 97162-GP; 99284-25; G0378; J1644; J7030; P9038; P9058

== ENCOUNTER 2018-10-11 12:48 | Inpatient (IN) | payer OTHER, MEDICARE ==
--- NOTE | 2018-10-11 14:00 | PDOC ---
History of Present Illness - General Chief Complaint: Abrasion Stated Complaint: LARGE SKIN TEAR Time Seen by Provider: 10/11/18 12:59 History Source: Patient Exam Limitations: No Limitations Past History - Past Medical History Allergies/Adverse Reactions: Allergies Allergy/AdvReac Type Severity Reaction Status Date / Time Stock Ragweed Pollen Mixture Allergy Intermediate Cough Verified 10/11/18 12:56 No Known Drug Allergies Allergy Verified 10/11/18 12:56 Home Medications: Ambulatory Orders Aspirin [ASA -] 81 mg PO DAILY 02/23/17 Multivitamin [One Daily] 1 each PO DAILY 02/23/17 Albuterol 0.083% Nebulizer Billie [Ventolin 0.083% Nebulizer Soln -] 1 amp NEB Q4H PRN amp 09/13/18 Amlodipine Besylate [Norvasc -] 5 mg PO DAILY tablet 09/13/18 Budesonide/Formeterol Fumarate [SYMBICORT 160/4.5mcg -] 2 puff IH BID inhaler 09/13/18 Nebivolol [Bystolic -] 10 mg PO DAILY tab 09/13/18 Ramipril [Altace] 10 mg PO BID capsule 09/13/18 Tiotropium [place] [Spiriva Respimat] 2 puff IH DAILY inhaler 09/13/18 predniSONE [Deltasone -] 40 mg PO DAILY tablet 09/13/18 Anemia: No Asthma: No Cancer: Yes (LEFT BREAST 1999) Cardiac Disorders: Yes (CAD) CVA: No COPD: Yes CHF: No Dementia: No Diabetes: No GI Disorders: Yes (H/O COLONIC POLYPS) Disorders: No HTN: Yes Hypercholesterolemia: Yes Liver Disease: No Seizures: No Thyroid Disease: No - Surgical History Abdominal Surgery: No Appendectomy: Yes (2003) Cardiac Surgery: Yes (ANGIOPLASTY/STENT PLACEMENT) Cholecystectomy: Yes (2004) Lung Surgery: No Neurologic Surgery: No Orthopedic Surgery: Yes (RIGHT HIP REPLACEMENT 1999/LEFT THR) - Suicide/Smoking/Psychosocial Hx Smoking Status: No Smoking History: Former smoker Have you smoked in the past 12 months: No Number of Cigarettes Smoked Daily: 20 If you are a former smoker, when did you quit?: January 2018 Information on smoking cessation initiated: No 'Breaking Loose' booklet given: 10/05/17 Hx Alcohol Use: No Drug/Substance Use Hx: No Substance Use Type: Alcohol Hx Substance Use Treatment: No *Physical Exam - Vital Signs Last Vital Signs Temp Pulse Resp BP Pulse Ox 97.7 F 91 H 17 102/43 L 100 10/11/18 12:53 10/11/18 12:53 10/11/18 12:53 10/11/18 12:53 10/11/18 12:53 - Physical Exam General Appearance: No: Apparent Distress Respiratory/Chest: positive: Lungs Clear, Normal Breath Sounds. negative: Respiratory Distress Cardiovascular: positive: Regular Rhythm, Regular Rate, S1, S2. negative: Murmur Vascular Pulses: Doralis-Pedis (L): 2+ Extremity: positive: Other (+multiple skin tears along lateral aspect of LLE, largest one around 12 x4 cm, no pustular discharge, no erythema, pulses intact ) Neurologic: positive: Alert, Normal Mood/Affect Medical Decision Making - Medical Decision Making 78 y/o F hx of COPD, CAD, breast CA was sent from wound clinic for evaluation of LLE wound by plastics surgeon. Patient injured LLE after tripping down 6 steps of stairs last week. Was on ASA but stopped it last week. Denies fever, numbness, weakness of extremities. Spoke to wound clinic who states they had discussed case with plastic surgeon, Dr. Maddie Isabel for evaluation Dr. Isabel called and waiting to hear back 10/11/18 13:57 Patient's PCP, Dr. Griffin, called, stating he wants patient admitted under Dr. Danielle Spoke to Dr. Isabel as well, who was made aware of case and that patient is going to be admitted 10/11/18 15:04 *DC/Admit/Observation/Transfer Diagnosis at time of Disposition: Leg wound, left Qualifiers: Encounter type: initial encounter Qualified Code(s): S81.802A - Unspecified open wound, left lower leg, initial encounter - Discharge Dispostion Condition at time of disposition: Stable Decision to Admit order: Yes - Referrals Referrals: Buddy Weaver MD [Primary Care Provider] - - Patient Instructions - Post Discharge Activity
--- NOTE | 2018-10-11 16:42 | HP ---
Admitting History and Physical - Admission Chief Complaint: sent in by pcp for leg wound History of Present Illness: 78 y/o F hx of COPD, CAD, breast CA was sent from wound clinic for evaluation of LLE wound by plastics surgeon. Patient injured LLE after tripping down 6 steps of stairs last week. Was on ASA but stopped it last week. Denies fever, numbness, weakness of extremities. History Source: Patient - Past Medical History Cardiovascular: Yes: CAD, HTN, Hyperlipdemia Pulmonary: Yes: COPD Heme/Onc: Yes: Cancer (Breast CA s/p lumpectomy and radiation therapy) Psych: Yes: Other (alcohol abuse) - Past Surgical History Past Surgical History: Yes: Breast Biopsy, Cholecystectomy, Joint Replacement ( right and left hips ), Stent - Smoking History Smoking history: Former smoker Have you smoked in the past 12 months: No Aproximately how many cigarettes per day: 20 If you are a former smoker, when did you quit?: January 2018 - Alcohol/Substance Use Hx Alcohol Use: No - Social History ADL: Independent History of Recent Travel: No Home Medications - Allergies Allergies/Adverse Reactions: Allergies Allergy/AdvReac Type Severity Reaction Status Date / Time Stock Ragweed Pollen Mixture Allergy Intermediate Cough Verified 10/11/18 12:56 No Known Drug Allergies Allergy Verified 10/11/18 12:56 - Home Medications Home Medications: Ambulatory Orders Aspirin [ASA -] 81 mg PO DAILY 02/23/17 Multivitamin [One Daily] 1 each PO DAILY 02/23/17 Albuterol 0.083% Nebulizer Billie [Ventolin 0.083% Nebulizer Soln -] 1 amp NEB Q4H PRN amp 09/13/18 Amlodipine Besylate [Norvasc -] 5 mg PO DAILY tablet 09/13/18 Budesonide/Formeterol Fumarate [SYMBICORT 160/4.5mcg -] 2 puff IH BID inhaler 09/13/18 Nebivolol [Bystolic -] 10 mg PO DAILY tab 09/13/18 Ramipril [Altace] 10 mg PO BID capsule 09/13/18 Tiotropium [place] [Spiriva Respimat] 2 puff IH DAILY inhaler 09/13/18 predniSONE [Deltasone -] 40 mg PO DAILY tablet 09/13/18 Family Disease History - Family Disease History Family Disease History: CA: Sister (cervical cnacer 30) Physical Examination Vital Signs: Vital Signs Temperature 97.7 F 10/11/18 12:53 Pulse Rate 91 H 10/11/18 12:53 Respiratory Rate 17 10/11/18 12:53 Blood Pressure 102/43 L 10/11/18 12:53 O2 Sat by Pulse Oximetry (%) 100 10/11/18 12:53 Problem List - Problems (1) Leg wound, left Assessment/Plan: dr garcía ID med surg labs dt ppx Code(s): S81.802A - UNSPECIFIED OPEN WOUND, LEFT LOWER LEG, INITIAL ENCOUNTER Qualifiers: Encounter type: initial encounter Qualified Code(s): S81.802A - Unspecified open wound, left lower leg, initial encounter (2) COPD (chronic obstructive pulmonary disease) Assessment/Plan: symbicoet Code(s): J44.9 - CHRONIC OBSTRUCTIVE PULMONARY DISEASE, UNSPECIFIED (3) HTN (hypertension) Assessment/Plan: given low BP hold anabela and lucio Code(s): I10 - ESSENTIAL (PRIMARY) HYPERTENSION Qualifiers:
[2018-10-11] MEDS ORDERED: PIPERACILLIN/TAZOB 3.375 GM 3.375 GM in DEXTROSE 5%-WATER - 50 ML IVPB ONE (16:45)
[2018-10-11] MEDS ORDERED: ACETAMINOPHEN 325 MG TABLET (FP) PO PRN (16:47)
[2018-10-11 20:20] LABS: BASO % 0.5 % (0-2.0); HEMATOCRIT 21.7 % (32.4-45.2); HEMOGLOBIN 7.2 GM/dL (10.7-15.3); LYMPH % 29.2 % (8-40); MCH 33.8 pg (25.7-33.7); MEAN CELL VOLUME 102.3 fl (80-96); MEAN PLT VOLUME 7.6 fl (7.5-11.1); MONO % 12.6 % (3.8-10.2); NEUT % 57.7 % (42.8-82.8); PLATELET COUNT 255 K/MM3 (134-434); RBC 2.12 M/mm3 (3.60-5.2); RDW 16.4 % (11.6-15.6); WHITE BLOOD COUNT 7.7 K/mm3 (4.0-10.0)
[2018-10-11] MEDS ORDERED: PIPERACILLIN/TAZOB 3.375 GM 3.375 GM/50 ML BAG IVPB ONE (20:32)
[2018-10-11 20:47] LABS: ANION GAP 7 MMOL/L (8-16); BLOOD UREA NITROGEN 21 mg/dL (7-18); CHLORIDE 109 mmol/L (98-107); CO2 24 mmol/L (21-32); CREATININE 1.2 mg/dL (0.55-1.3); GLUCOSE,RANDOM 101 mg/dL (74-106); POTASSIUM 4.8 mmol/L (3.5-5.1); SODIUM 141 mmol/L (136-145)
[2018-10-11 20:50] LABS: INR 1.07 (0.83-1.09); PROTHROMBIN TIME (PATIENT) 12.6 SEC (9.7-13.0)
[2018-10-11 20:53] LABS: ACTIVATED PTT 28.8 SECONDS (25.2-36.5)
[2018-10-11] MEDS: HEPARIN NA (PORCINE) 5,000 UNITS/ML 1ML VIAL SQ SCH (22:02)
[2018-10-11] MEDS: BUDESONIDE/FORMETEROL FUMARATE 160/4.5 mcg INHALER IH SCH (22:02)
[2018-10-11] MEDS ORDERED: HEPARIN NA (PORCINE) 5,000 UNITS/ML 1ML VIAL ONE (22:03)
[2018-10-12 00:46] VITALS: BMI 18.6
[2018-10-12 08:19] LABS: HEMATOCRIT 21.5 % (32.4-45.2); HEMOGLOBIN 7.1 GM/dL (10.7-15.3); MCH 33.6 pg (25.7-33.7); MCHC 33.1 g/dl (32.0-36.0); MEAN CELL VOLUME 101.4 fl (80-96); PLATELET COUNT 247 K/MM3 (134-434); RBC 2.12 M/mm3 (3.60-5.2); RDW 16.1 % (11.6-15.6); WHITE BLOOD COUNT 7.6 K/mm3 (4.0-10.0)
[2018-10-12 08:51] LABS: ALBUMIN 2.2 g/dl (3.4-5.0); ALK PHOS 70 U/L (45-117); ANION GAP 7 MMOL/L (8-16); BILIRUBIN,TOTAL 0.7 mg/dL (0.2-1); BLOOD UREA NITROGEN 18 mg/dL (7-18); CALCIUM 8.2 mg/dL (8.5-10.1); CHLORIDE 109 mmol/L (98-107); CO2 24 mmol/L (21-32); GLUCOSE,RANDOM 104 mg/dL (74-106); SGOT/AST 22 U/L (15-37); SGPT/ALT 22 U/L (13-61); SODIUM 140 mmol/L (136-145)
[2018-10-12] MEDS: HEPARIN NA (PORCINE) 5,000 UNITS/ML 1ML VIAL SQ SCH ×2 (09:15→21:23)
--- NOTE | 2018-10-12 10:44 | PN ---
Progress Note (short form) - Note Progress Note: ID CONSULT DICTATED INFECTED L LE ULCERS R/O SEPSIS SECONDARY TO SKIN SOURCE PENDING C/S EMPIRIC ZOSYN/ VANCOMYCIN LOCAL WOUND CARE
--- NOTE | 2018-10-12 11:27 | CONS ---
DATE OF CONSULTATION: DATE OF DICTATION: 10/12/2018 HISTORY OF PRESENT ILLNESS: The patient is a 78-year-old female who is evaluated for infected bilateral lower extremity ulcers. Patient was recently hospitalized at [facility] in August 2018. She was hospitalized between August 16 and September 13, 2018. Her course at that time was complicated by respiratory failure requiring intubation and pneumonia. She was treated with IV antibiotics and was discharged to a [facility] facility for rehabilitation. At that facility she was transferred to the wound care center for followup of bilateral lower extremity ulcerations. She was referred from the wound care center to the emergency room after she was noted to have extensive ulcerations of the left lower extremity with drainage. At the present time she has no complaints of leg pain as long as it is not manipulated. She denies any fever or chills. PAST MEDICAL HISTORY: Positive for COPD, coronary artery disease, a history of coronary artery stents, bilateral total hip replacements, history of left breast cancer. PAST SURGICAL HISTORY: Status post appendectomy and cholecystectomy. ALLERGIES: There are no known allergies. MEDICATIONS: Aspirin, multivitamins, Norvasc, Bystolic, Altace, Spiriva, prednisone. SOCIAL HISTORY: Resides at home with her significant other. Positive active tobacco use. SYSTEMS REVIEW:Neurologic: No loss of consciousness, seizure activity, focal weakness. Cardiac: Negative chest pain or palpitations. Respiratory: Negative cough or sputum production. Gastrointestinal: Negative vomiting or diarrhea. Genitourinary: Negative for urinary tract infection. LABORATORY DATA: White count 7.6, hematocrit 21.5, platelet count 247. BUN 18, creatinine 1.0. Liver enzymes normal. Blood cultures are pending. PHYSICAL EXAMINATION: General: The patient is awake and alert. She is supine in bed. Vital Signs: Temperature 99, blood pressure 117/54, pulse 89, regular, respirations 18 per minute. HEENT: Sclerae are anicteric. Cardiac: Heart sounds S1, S2. Lungs: Clear. Abdomen: Soft. No tenderness elicited. No mass, rebound or rigidity. Extremities: Examination of the right lower extremity: There is a superficial skin tear present over the proximal pretibial area. There is no purulent drainage. Examination of the left lower extremity: There is more extensive ulceration of the left lower extremity with serosanguineous drainage as well as [place] blood noted on the skin. No crepitus or fluctuance. IMPRESSION: 1. Infected left lower extremity skin ulcers. 2. Rule out sepsis secondary to skin source. 3. Status post recent respiratory failure. RECOMMENDATIONS: Continue local wound care. Empiric antibiotic coverage for hospital-acquired pathogens of the skin with vancomycin and Zosyn. Debridement as per Surgery. Further recommendations pending cultures. Thank you for the kind referral. REINIER CASAREZ M.D. [id number]
[2018-10-12] MEDS ORDERED: VANCOMYCIN 1 GM PREMIX - 1 GM/200 ML BAG IVPB SCH (11:30)
[2018-10-12] MEDS ORDERED: PIPERACILLIN/TAZOBACTAM 3.375 GM VIAL IVPB ONE (11:30)
[2018-10-12] MEDS ORDERED: DEXTROSE 5%-WATER - 50 ML IVPB ONE (11:30)
[2018-10-12] MEDS: PIPERACILLIN/TAZOB 3.375 GM 3.375 GM in DEXTROSE 5%-WATER - 50 ML IVPB SCH ×2 (11:42→17:26)
[2018-10-12] MEDS: TIOTROPIUM BROMIDE 2.5 MCG (SPIRIVA) RESPIMAT INHALER IH SCH (11:42)
[2018-10-12] MEDS: BUDESONIDE/FORMETEROL FUMARATE 160/4.5 mcg INHALER IH SCH ×2 (11:42→21:52)
[2018-10-12] MEDS: VANCOMYCIN 1 GM PREMIX - 1 GM/200 ML BAG IVPB SCH ×2 (13:05→23:30)
--- NOTE | 2018-10-12 13:22 | PN ---
Progress Note, Physician Chief Complaint: patient seen and examined h/h noted - Current Medication List Current Medications: Active Medications Acetaminophen (Tylenol -) 650 mg PO Q6H PRN PRN Reason: FEVER Budesonide/Formoterol Fumarate (Symbicort 160/4.5mcg -) 2 puff IH BID [facility] Last Admin: 10/12/18 11:42 Dose: Not Given Heparin Sodium (Porcine) (Heparin -) 5,000 unit SQ BID [facility] Last Admin: 10/12/18 09:15 Dose: 5,000 unit Vancomycin HCl (Vancomycin 1 Gm Premix -) 1 gm in 200 mls @ 166.667 mls/hr IVPB Q12H [facility]; Protocol Last Admin: 10/12/18 13:05 Dose: 166.667 mls/hr Piperacillin Sod/Tazobactam (Sod 3.375 gm/ Dextrose) 50 mls @ 100 mls/hr IVPB Q8H-IV [facility]; Protocol Last Admin: 10/12/18 11:42 Dose: 100 mls/hr Tiotropium [place] (Spiriva Respimat) 2 puff IH DAILY [facility] Last Admin: 10/12/18 11:42 Dose: Not Given - Objective Vital Signs: Vital Signs Temperature 99.0 F 10/12/18 08:54 Pulse Rate 89 10/12/18 08:54 Respiratory Rate 18 10/12/18 08:54 Blood Pressure 117/54 L 10/12/18 08:54 O2 Sat by Pulse Oximetry (%) 96 10/12/18 09:00 Constitutional: Yes: Calm, Thin Cardiovascular: Yes: Regular Rate and Rhythm, S1, S2 Respiratory: Yes: CTA Bilaterally Gastrointestinal: Yes: Normal Bowel Sounds, Soft Extremities: Yes: Other (left leg wound draining) Labs: CBC, BMP 10/12/18 06:25 10/12/18 06:25 INR, PTT INR 1.07 (0.83-1.09) 10/11/18 20:00 Problem List - Problems (1) Leg wound, left Assessment/Plan: dr ricky COLEMAN- zosyn vancomycin med surg labs dt ppx Code(s): S81.802A - UNSPECIFIED OPEN WOUND, LEFT LOWER LEG, INITIAL ENCOUNTER Qualifiers: Encounter type: initial encounter Qualified Code(s): S81.802A - Unspecified open wound, left lower leg, initial encounter (2) COPD (chronic obstructive pulmonary disease) Assessment/Plan: symbicoet Code(s): J44.9 - CHRONIC OBSTRUCTIVE PULMONARY DISEASE, UNSPECIFIED (3) HTN (hypertension) Assessment/Plan: given low BP hold lalita Code(s): I10 - ESSENTIAL (PRIMARY) HYPERTENSION Qualifiers: (4) Anemia Assessment/Plan: iron panel stool occult blood transfuse one unit monitor h/h Code(s): D64.9 - ANEMIA, UNSPECIFIED
--- NOTE | 2018-10-12 14:41 | CONSULT ---
Consult Consult Specialty:: Plastic surgery/Senior [employer] Referred by:: Dr Juárez/Dr Lopez Reason for Consultation:: Acute wounds Bilateral lower legs - History of Present Illness Chief Complaint: Open wounds from a fall at Home while coming down the stairs 8 days ago History of Present Illness: As per patient (Good Historian) she was coming down the stairs using her cane, she lost her balance and fell . She noted open wounds but did not seek and treatment till yesterday She was referred by Dr Gaffney to wound clinic. Patient was seen by wound care nurses and wound care was provided but the wounds are extensive and several , she was send to ER for further care She lives with her and son. No h/o loss of consciousness, no h/o fever, pain minimal . Past H/o : Breast Cancer, CAD Pertinent Negative : No h/o Rheumatoid Arthritis, No immunological deficiency. No Past H/o trauma Social : Quit smoking recently - History Source History Provided By: Patient Limitations to Obtaining History: No Limitations - Past Medical History Cardio/Vascular: Yes: CAD, HTN, Hyperlipdemia Pulmonary: Yes: COPD ...: No Psych: Yes: Other (alcohol abuse) - Past Surgical History Past Surgical History: Yes: Breast Biopsy, Cholecystectomy, Joint Replacement ( right and left hips ), Stent - Alcohol/Substance Use Hx Alcohol Use: No - Smoking History Smoking history: Former smoker Have you smoked in the past 12 months: No Aproximately how many cigarettes per day: 20 If you are a former smoker, when did you quit?: January 2018 - Social History Usual Living Arrangement: Alone ADL: Independent History of Recent Travel: No Home Medications - Allergies Allergies/Adverse Reactions: Allergies Allergy/AdvReac Type Severity Reaction Status Date / Time Stock Ragweed Pollen Mixture Allergy Intermediate Cough Verified 10/11/18 12:56 No Known Drug Allergies Allergy Verified 10/11/18 12:56 - Home Medications Home Medications: Ambulatory Orders Aspirin [ASA -] 81 mg PO DAILY 02/23/17 Multivitamin [One Daily] 1 each PO DAILY 02/23/17 Albuterol 0.083% Nebulizer Billie [Ventolin 0.083% Nebulizer Soln -] 1 amp NEB Q4H PRN amp 09/13/18 Amlodipine Besylate [Norvasc -] 5 mg PO DAILY tablet 09/13/18 Budesonide/Formeterol Fumarate [SYMBICORT 160/4.5mcg -] 2 puff IH BID inhaler 09/13/18 Nebivolol [Bystolic -] 10 mg PO DAILY tab 09/13/18 Ramipril [Altace] 10 mg PO BID capsule 09/13/18 Tiotropium [place] [Spiriva Respimat] 2 puff IH DAILY inhaler 09/13/18 predniSONE [Deltasone -] 40 mg PO DAILY tablet 09/13/18 Family Disease History - Family Disease History Family Disease History: CA: Sister (cervical cnacer 30) Physical Exam Vital Signs: Vital Signs Temperature 99.0 F 10/12/18 08:54 Pulse Rate 89 10/12/18 08:54 Respiratory Rate 18 10/12/18 08:54 Blood Pressure 117/54 L 10/12/18 08:54 O2 Sat by Pulse Oximetry (%) 96 10/12/18 09:00 Labs: CBC, BMP 10/12/18 06:25 10/12/18 06:25 Assessment/Plan Awake , Alert, gives a good description of her injuries Lower leg Swelling 3+, warm, tender, no calf tenderness Pulses : Selected Entries 10/12/18 08:54 Temperature 99.0 F Blood Pressure 117/54 L Focused Examination : 1. Left lower leg several wound, warm, erythema all wounds covered with heavy fibrinous tissue minimal odor 2. Largest wound Lateral surface Left leg, 13x5x0.3 covered with fibrinous tissue, Avulsed skin rolled over, base has several dark spots (necrosis) 2. Left leg 4.8x3x0.2cm 3. 2.2x2.6x0.2 4. 2.4 x5.0x0.2 5 2.6x5.4x0.2cm Right lower leg : 5.1x2.6x 0.2 avulsed skin none of the wounds skin can be used to cover the defects.skin is non viable Skin will require debridement, Wound base Excisional debriedement, topical and systemic antibiotic, once infection is controlled she will require skin grafting on Left lower leg wounds Awaiting wound culture report Continue oral antibiotics Apply compression stockings to reduce swelling Will follow Thanks Dr Isabel 40 Min
[2018-10-12] MEDS: SILVER SULFADIAZINE 1% TOP CREAM 50 GM JAR TP SCH ×2 (17:06→21:23)
[2018-10-12] MEDS ORDERED: PT OWN MED DRAWER 7, Y5N ONE (21:24)
[2018-10-13] MEDS ORDERED: PIPERACILLIN/TAZOBACTAM 3.375 GM VIAL IVPB ONE ×3 (01:43→17:19)
[2018-10-13] MEDS ORDERED: DEXTROSE 5%-WATER - 50 ML IVPB ONE ×3 (01:43→17:19)
[2018-10-13] MEDS: PIPERACILLIN/TAZOB 3.375 GM 3.375 GM in DEXTROSE 5%-WATER - 50 ML IVPB SCH ×3 (01:53→17:23)
[2018-10-13 07:48] LABS: BASO % 0.7 % (0-2.0); HEMATOCRIT 28.6 % (32.4-45.2); HEMOGLOBIN 9.5 GM/dL (10.7-15.3); LYMPH % 30.4 % (8-40); MCH 32.7 pg (25.7-33.7); MCHC 33.1 g/dl (32.0-36.0); MEAN CELL VOLUME 98.5 fl (80-96); MEAN PLT VOLUME 7.9 fl (7.5-11.1); MONO % 10.6 % (3.8-10.2); NEUT % 58.3 % (42.8-82.8); PLATELET COUNT 291 K/MM3 (134-434); RBC 2.91 M/mm3 (3.60-5.2); RDW 17.5 % (11.6-15.6); WHITE BLOOD COUNT 7.2 K/mm3 (4.0-10.0)
[2018-10-13 08:32] LABS: ALBUMIN 2.2 g/dl (3.4-5.0); ALK PHOS 70 U/L (45-117); ANION GAP 9 MMOL/L (8-16); BILIRUBIN,TOTAL 0.6 mg/dL (0.2-1); BLOOD UREA NITROGEN 12 mg/dL (7-18); CALCIUM 8.1 mg/dL (8.5-10.1); CHLORIDE 108 mmol/L (98-107); CO2 24 mmol/L (21-32); GLUCOSE,RANDOM 98 mg/dL (74-106); POTASSIUM 4.8 mmol/L (3.5-5.1); SGOT/AST 20 U/L (15-37); SGPT/ALT 19 U/L (13-61); SODIUM 140 mmol/L (136-145); TOT PROT 5.1 g/dl (6.4-8.2)
[2018-10-13] MEDS: BUDESONIDE/FORMETEROL FUMARATE 160/4.5 mcg INHALER IH SCH ×2 (10:09→21:22)
[2018-10-13] MEDS: HEPARIN NA (PORCINE) 5,000 UNITS/ML 1ML VIAL SQ SCH ×2 (10:10→21:21)
[2018-10-13] MEDS: SILVER SULFADIAZINE 1% TOP CREAM 50 GM JAR TP SCH ×2 (10:15→21:21)
[2018-10-13] MEDS: VANCOMYCIN 1 GM PREMIX - 1 GM/200 ML BAG IVPB SCH (12:10)
[2018-10-13] MEDS ORDERED: ALBUTEROL SO4 0.083% IH SOL 2.5 MG/3 ML VIAL.NEB. NEB PRN (14:06)
--- NOTE | 2018-10-13 14:10 | PN ---
Progress Note, Physician - Current Medication List Current Medications: Active Medications Acetaminophen (Tylenol -) 650 mg PO Q6H PRN PRN Reason: FEVER Budesonide/Formoterol Fumarate (Symbicort 160/4.5mcg -) 2 puff IH BID [facility] Last Admin: 10/13/18 10:09 Dose: 2 puff Heparin Sodium (Porcine) (Heparin -) 5,000 unit SQ BID [facility] Last Admin: 10/13/18 10:10 Dose: 5,000 unit Vancomycin HCl (Vancomycin 1 Gm Premix -) 1 gm in 200 mls @ 166.667 mls/hr IVPB Q12H [facility]; Protocol Last Admin: 10/13/18 12:10 Dose: 166.667 mls/hr Piperacillin Sod/Tazobactam (Sod 3.375 gm/ Dextrose) 50 mls @ 100 mls/hr IVPB Q8H-IV [facility]; Protocol Last Admin: 10/13/18 10:11 Dose: 100 mls/hr Silver Sulfadiazine (Silvadene -) 1 applic TP BID [facility] Last Admin: 10/13/18 10:15 Dose: 1 applic Tiotropium [place] (Spiriva Respimat) 2 puff IH DAILY [facility] Last Admin: 10/12/18 11:42 Dose: Not Given - Objective Vital Signs: Vital Signs Temperature 98.5 F 10/13/18 09:00 Pulse Rate 81 10/13/18 09:00 Respiratory Rate 18 10/13/18 09:00 Blood Pressure 137/60 10/13/18 09:00 O2 Sat by Pulse Oximetry (%) 97 10/13/18 09:00 Cardiovascular: Yes: S1, S2 Respiratory: Yes: On Nasal O2, Wheezes Gastrointestinal: Yes: Normal Bowel Sounds, Soft Wound/Incision: Yes: Dressing Dry and Intact Labs: CBC, BMP 10/13/18 05:00 10/13/18 05:00 INR, PTT INR 1.07 (0.83-1.09) 10/11/18 20:00 Assessment/Plan - Problems (1) Leg wound, left Assessment/Plan: dr garcía consult appreciated ID- zosyn vancomycin med surg labs dt ppx Code(s): S81.802A - UNSPECIFIED OPEN WOUND, LEFT LOWER LEG, INITIAL ENCOUNTER Qualifiers: Encounter type: initial encounter Qualified Code(s): S81.802A - Unspecified open wound, left lower leg, initial encounter (2) COPD (chronic obstructive pulmonary disease) Assessment/Plan: symbicort spiriva hold off on steroids pulm Code(s): J44.9 - CHRONIC OBSTRUCTIVE PULMONARY DISEASE, UNSPECIFIED (3) HTN (hypertension) Assessment/Plan: given low BP hold norvasc and bystolic Code(s): I10 - ESSENTIAL (PRIMARY) HYPERTENSION Qualifiers: (4) Anemia Assessment/Plan: iron panel stool occult blood transfused one unit gi consult ppi monitor h/h Code(s): D64.9 - ANEMIA, UNSPECIFIED
--- NOTE | 2018-10-13 15:00 | CON.GI ---
Consult Consult Specialty:: GI Referred by:: Dr. Danielle Reason for Consultation:: Anemia - History of Present Illness Chief Complaint: Fall at home. May need skin grafting History of Present Illness: 78F admitted s/p fall with subsequent leg wounds. Seen by Plastics. Patient will need debridement, possible grafting given extensive nature of wounds. Called for anemia. given 1 U PRBC. No overt bleeding reported. No change in bowel habits/stool caliber. Per the [employer]ole[employer] system she has had a macrocytosis since 2012. She is unaware of being anemic. She denies abdominal pain, nausea , vomiting, melena. She is maintained on ASA and was on prednisone secondary to COPD. From discharge summary from 09/25 it does not appear as though she was on GI prophylaxis. Her father in 's of either intestinal ischemia or colon cancer. She follows with Dr. Jermaine Coe, who has performed her colonoscopies. In reiew of the Nanoleaf system her last colonoscopy was 09/08/14 that led to the removal of a hyperplastic rectal polyp. She has colonoscopies every 5 years. She has never had an upper endoscopy. - History Source History Provided By: Patient, Medical Record - Past Medical History Cardio/Vascular: Yes: CAD, HTN, Hyperlipdemia Pulmonary: Yes: COPD ...: No Heme/Onc: Yes: Anemia (macrocytic from 2012), Cancer (BCA) Psych: Yes: Other (alcohol abuse) - Past Surgical History Past Surgical History: Yes: Breast Biopsy (left Lumpectomy), Cholecystectomy, Joint Replacement (right hip), Stent Additional Surgical History: Left hip fracture repair, BTL - Alcohol/Substance Use Hx Alcohol Use: Yes (1 per day) History of Substance Use: reports: None - Smoking History Smoking history: Former smoker Have you smoked in the past 12 months: No Aproximately how many cigarettes per day: 20 If you are a former smoker, when did you quit?: January 2018 - Social History Usual Living Arrangement: Alone ADL: Independent 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 Place of : [facility] History of Recent Travel: No Home Medications - Allergies Allergies/Adverse Reactions: Allergies Allergy/AdvReac Type Severity Reaction Status Date / Time Stock Ragweed Pollen Mixture Allergy Intermediate Cough Verified 10/11/18 12:56 No Known Drug Allergies Allergy Verified 10/11/18 12:56 - Home Medications Home Medications: Ambulatory Orders Aspirin [ASA -] 81 mg PO DAILY 02/23/17 Multivitamin [One Daily] 1 each PO DAILY 02/23/17 Albuterol 0.083% Nebulizer Billie [Ventolin 0.083% Nebulizer Soln -] 1 amp NEB Q4H PRN amp 09/13/18 Amlodipine Besylate [Norvasc -] 5 mg PO DAILY tablet 09/13/18 Budesonide/Formeterol Fumarate [SYMBICORT 160/4.5mcg -] 2 puff IH BID inhaler 09/13/18 Nebivolol [Bystolic -] 10 mg PO DAILY tab 09/13/18 Ramipril [Altace] 10 mg PO BID capsule 09/13/18 Tiotropium [place] [Spiriva Respimat] 2 puff IH DAILY inhaler 09/13/18 predniSONE [Deltasone -] 40 mg PO DAILY tablet 09/13/18 Family Disease History - Family Disease History Family Disease History: Other: Father (: 80's: intestinal ischemia vs. colon cancer), Mother (: 70's: valvular heart disease/Rheumatic fever comps) , Brother (1: : 81: dementia), Sister (1, : 30: Cervical Ca), Son (1, healthy) Review of Systems - Review of Systems Constitutional: denies: Chills Cardiovascular: denies: Chest Pain Gastrointestinal: denies: Abdominal Pain, Bloating, Constipation, Diarrhea, Indigestion, Melena, Nausea, Rectal Bleeding, Vomiting, Vomiting Blood Physical Exam-GI Vital Signs: Vital Signs Temperature 98.5 F 10/13/18 09:00 Pulse Rate 81 10/13/18 09:00 Respiratory Rate 18 10/13/18 09:00 Blood Pressure 137/60 10/13/18 09:00 O2 Sat by Pulse Oximetry (%) 97 10/13/18 09:00 Constitutional: Yes: Calm Eyes: No: Sclera Icterus Cardiovascular: Yes: Regular Rate and Rhythm, Murmur (2/6 systolic murmur at the RSB) Respiratory: Yes: CTA Bilaterally Gastrointestinal Inspection: Yes: Scars (healed trochar scars, small vertical midline pelvic surgical scar). No: Distention ...Auscultate: Yes: Normoactive Bowel Sounds ...Palpate: Yes: Soft. No: Hepatomegaly, Splenomegaly, Tenderness ...Percussion: No: Tympanitic ...Rectal Exam: Yes: Other ( external lesions, no masses, formed light brown stool in rectal vault, guaiac negative) Extremities: Yes: Other (Dressings on bilateral lower extremities. edema right lower pretibial area with tenderness) Neurological: Yes: Alert, Oriented Labs: CBC, BMP 10/13/18 05:00 10/13/18 05:00 INR, PTT INR 1.07 (0.83-1.09) 10/11/18 20:00 Hepatic Panel Total Bilirubin 0.6 mg/dL (0.2-1) 10/13/18 05:00 AST 20 U/L (15-37) 10/13/18 05:00 ALT 19 U/L (13-61) 10/13/18 05:00 Alkaline Phosphatase 70 U/L (45-117) 10/13/18 05:00 Albumin 2.2 g/dl (3.4-5.0) L 10/13/18 05:00 Problem List - Problems (1) Macrocytic anemia Assessment/Plan: Guaiac negative on exam without focal GI complaints Macrocytosis appears chronic. Patient was unaware Would not postposne any potential plastic surgery procedures for GI evaluation at this time Agree with checking iron studies. Check B12. If iron deficient, will need GI work-up. Hematology consult and evaluation for other causes of anemia per PMD Will need outpatient follow-up with her attic blower Dr. Jermaine Coe. Explained to patient. Protonix 20mg daily while patient is on ASA / corticosteroid therapy Code(s): D53.9 - NUTRITIONAL ANEMIA, UNSPECIFIED
[2018-10-13] MEDS ORDERED: PT OWN MED DRAWER 7, Y5N ONE (15:32)
[2018-10-13] MEDS: TIOTROPIUM BROMIDE 2.5 MCG (SPIRIVA) RESPIMAT INHALER IH SCH (15:46)
[2018-10-13] MEDS: PANTOPRAZOLE SODIUM 40 MG VIAL IVPUSH SCH (21:21)
[2018-10-14] MEDS: VANCOMYCIN 1 GM PREMIX - 1 GM/200 ML BAG IVPB SCH ×3 (00:25→22:42)
[2018-10-14] MEDS ORDERED: DEXTROSE 5%-WATER - 50 ML IVPB ONE ×3 (01:11→17:01)
[2018-10-14] MEDS ORDERED: PIPERACILLIN/TAZOBACTAM 3.375 GM VIAL IVPB ONE ×3 (01:11→17:01)
[2018-10-14] MEDS: PIPERACILLIN/TAZOB 3.375 GM 3.375 GM in DEXTROSE 5%-WATER - 50 ML IVPB SCH ×3 (01:51→17:10)
[2018-10-14 04:10] LABS: SERUM IRON SATURATION 27 % (15-55); TOTAL IRON BINDING CAPACITY 196 ug/dL (250-450); UIBC 144 ug/dL (118-369)
[2018-10-14 06:41] LABS: BASO % 0.8 % (0-2.0); HEMATOCRIT 27.2 % (32.4-45.2); HEMOGLOBIN 9.3 GM/dL (10.7-15.3); LYMPH % 30.2 % (8-40); MCH 33.5 pg (25.7-33.7); MCHC 34.3 g/dl (32.0-36.0); MEAN CELL VOLUME 97.9 fl (80-96); MEAN PLT VOLUME 7.4 fl (7.5-11.1); MONO % 12.2 % (3.8-10.2); NEUT % 56.8 % (42.8-82.8); PLATELET COUNT 283 K/MM3 (134-434); RBC 2.78 M/mm3 (3.60-5.2); RDW 16.6 % (11.6-15.6); WHITE BLOOD COUNT 6.4 K/mm3 (4.0-10.0)
[2018-10-14 07:44] LABS: ALK PHOS 66 U/L (45-117); ANION GAP 6 MMOL/L (8-16); BILIRUBIN,TOTAL 0.6 mg/dL (0.2-1); BLOOD UREA NITROGEN 14 mg/dL (7-18); CALCIUM 7.5 mg/dL (8.5-10.1); CHLORIDE 106 mmol/L (98-107); CO2 28 mmol/L (21-32); GLUCOSE,RANDOM 100 mg/dL (74-106); POTASSIUM 4.5 mmol/L (3.5-5.1); SGOT/AST 18 U/L (15-37); SGPT/ALT 15 U/L (13-61); SODIUM 139 mmol/L (136-145)
[2018-10-14] MEDS: HEPARIN NA (PORCINE) 5,000 UNITS/ML 1ML VIAL SQ SCH ×2 (10:05→21:42)
[2018-10-14] MEDS: PANTOPRAZOLE SODIUM 40 MG VIAL IVPUSH SCH ×2 (10:05→21:42)
[2018-10-14] MEDS: BUDESONIDE/FORMETEROL FUMARATE 160/4.5 mcg INHALER IH SCH ×2 (10:13→21:43)
[2018-10-14] MEDS: SILVER SULFADIAZINE 1% TOP CREAM 50 GM JAR TP SCH ×2 (10:14→21:43)
[2018-10-14] MEDS: TIOTROPIUM BROMIDE 2.5 MCG (SPIRIVA) RESPIMAT INHALER IH SCH (10:29)
[2018-10-14] MEDS ORDERED: PT OWN MED DRAWER 7, Y5N ONE (11:29)
--- NOTE | 2018-10-14 11:53 | PN ---
Progress Note, Physician - Current Medication List Current Medications: Active Medications Acetaminophen (Tylenol -) 650 mg PO Q6H PRN PRN Reason: FEVER Albuterol Sulfate (Ventolin 0.083% Nebulizer Soln -) 1 amp NEB Q4H PRN PRN Reason: SHORT OF BREATH/WHEEZING Budesonide/Formoterol Fumarate (Symbicort 160/4.5mcg -) 2 puff IH BID [facility] Last Admin: 10/14/18 10:13 Dose: 2 puff Heparin Sodium (Porcine) (Heparin -) 5,000 unit SQ BID [facility] Last Admin: 10/14/18 10:05 Dose: 5,000 unit Vancomycin HCl (Vancomycin 1 Gm Premix -) 1 gm in 200 mls @ 166.667 mls/hr IVPB Q12H [facility]; Protocol Last Admin: 10/14/18 11:30 Dose: 166.667 mls/hr Piperacillin Sod/Tazobactam (Sod 3.375 gm/ Dextrose) 50 mls @ 100 mls/hr IVPB Q8H-IV [facility]; Protocol Last Admin: 10/14/18 10:12 Dose: 100 mls/hr Pantoprazole Sodium (Protonix Iv) 40 mg IVPUSH BID [facility] Last Admin: 10/14/18 10:05 Dose: 40 mg Silver Sulfadiazine (Silvadene -) 1 applic TP BID [facility] Last Admin: 10/14/18 10:14 Dose: 1 applic Tiotropium [place] (Spiriva Respimat) 2 puff IH DAILY [facility] Last Admin: 10/14/18 10:29 Dose: 2 puff - Objective Vital Signs: Vital Signs Temperature 98.3 F 10/14/18 09:05 Pulse Rate 75 10/14/18 09:05 Respiratory Rate 18 10/14/18 09:05 Blood Pressure 118/60 10/14/18 09:05 O2 Sat by Pulse Oximetry (%) 98 10/13/18 21:00 Cardiovascular: Yes: S1, S2 Respiratory: Yes: Regular, CTA Bilaterally Gastrointestinal: Yes: Normal Bowel Sounds, Soft. No: Tenderness Wound/Incision: Yes: Dressing Dry and Intact Labs: CBC, BMP 10/14/18 06:00 10/14/18 06:00 INR, PTT INR 1.07 (0.83-1.09) 10/11/18 20:00 Assessment/Plan - Problems (1) Leg wound, left Assessment/Plan: dr garcía consult appreciated ID- zosyn vancomycin med surg labs dt ppx Code(s): S81.802A - UNSPECIFIED OPEN WOUND, LEFT LOWER LEG, INITIAL ENCOUNTER Qualifiers: Encounter type: initial encounter Qualified Code(s): S81.802A - Unspecified open wound, left lower leg, initial encounter (2) COPD (chronic obstructive pulmonary disease) Assessment/Plan: symbicort spiriva hold off on steroids pulm Code(s): J44.9 - CHRONIC OBSTRUCTIVE PULMONARY DISEASE, UNSPECIFIED (3) HTN (hypertension) Assessment/Plan: given low BP hold norvasc and bystolic Code(s): I10 - ESSENTIAL (PRIMARY) HYPERTENSION Qualifiers: (4) Anemia Assessment/Plan: iron panel stool occult blood transfused one unit gi consult noted ppi monitor h/h hem consult Code(s): D64.9 - ANEMIA, UNSPECIFIED
--- NOTE | 2018-10-14 13:04 | PN ---
Progress Note (short form) - Note Progress Note: PULMONARY CONSULTATION DICTATED 10/14/18 IMP COPD STABLE LLE WOUND S/P FALL ASHD H/O BREAST CA HLD PSVT LV DIASTOLIC DYSFUNCTION PLAN ABX PER ID INHALED BRONCHODILATORS WOUND CARE WOUND DEBRIDEMENT PER PLASTIC SURGERY CHEST X-RAY DR BEAL Problem List - Problems (1) Anemia Code(s): D64.9 - ANEMIA, UNSPECIFIED (2) COPD (chronic obstructive pulmonary disease) Code(s): J44.9 - CHRONIC OBSTRUCTIVE PULMONARY DISEASE, UNSPECIFIED (3) Leg wound, left Code(s): S81.802A - UNSPECIFIED OPEN WOUND, LEFT LOWER LEG, INITIAL ENCOUNTER Qualifiers: Encounter type: initial encounter Qualified Code(s): S81.802A - Unspecified open wound, left lower leg, initial encounter (4) Breast CA Code(s): C50.919 - MALIGNANT NEOPLASM OF UNSP SITE OF UNSPECIFIED FEMALE BREAST (5) CAD (coronary artery disease) Code(s): I25.10 - ATHSCL HEART DISEASE OF [place] CORONARY ARTERY W/O ANG PCTRS Qualifiers: Coronary Disease-Associated Artery/Lesion type: [place] artery [place] vs. transplanted heart: [place] heart Associated angina: without angina Qualified Code(s): I25.10 - Atherosclerotic heart disease of [place] coronary artery without angina pectoris (6) Laceration Code(s): [id number] - (7) PSVT (paroxysmal supraventricular tachycardia) Code(s): I47.1 - SUPRAVENTRICULAR TACHYCARDIA
--- NOTE | 2018-10-14 14:09 | CONS ---
DATE OF CONSULTATION: 10/14/2018 REFERRING PHYSICIAN: Fernando Danielle MD HISTORY OF PRESENT ILLNESS: The patient is a 78-year-old white female with an extensive past medical history of ASHD, COPD, history of coronary artery stents, bilateral total hip replacement, breast cancer, PSVT, and left ventricular diastolic dysfunction. She was recently hospitalized at [facility] secondary to acute hypoxemia and hypercapnic respiratory failure secondary to COPD exacerbation as well as pneumonia intubated and successfully extubated and she was transferred to a short-term rehab. The patient was discharged from rehab and was at home when she fell down the stairs injuring her left lower extremity. She initially did not seek medical attention. She went to Dr. Sorto office last week at which time she was advised to go to and she was subsequently admitted. She was evaluated by Dr. Isabel for a plastic surgical consultation and feels that the patient will require wound debridement. She was also placed on broad spectrum antibiotics per Infectious Disease. The patient has a history of tobacco use; she quit 8 months ago. There is no history of occupational exposure to chemical fumes. There is no history of recent travel. There is no history of DVT or PE in the past. PAST MEDICAL HISTORY: Includes PSVT, left ventricular diastolic dysfunction, hypertension, recent acute hypercapnic hypoxemic respiratory failure on ventilatory support secondary to pneumonia and COPD exacerbation, COPD, hyperlipidemia, and history of breast cancer. REVIEW OF SYSTEMS: No orthopnea, no PND, no chest pain, no shortness of breath, no cough, no hemoptysis, no fevers, no chills. CURRENT MEDICATIONS: Include Symbicort 160/4.5, Tylenol, Zosyn, vancomycin, heparin, Spiriva, albuterol, Silvadene and Protonix. PHYSICAL EXAMINATION: General: The patient is a well-developed, well-nourished, thin, white female awake, alert in no acute distress. Vital Signs: She is afebrile. Blood pressure 118/60, respiratory rate is 18, oxygen saturation is 98% on room air. HEENT: Examination is normocephalic and atraumatic. Neck: Supple. Heart: Regular S1, S2. Chest: Diminished breath sounds bilaterally. Abdomen: Soft, bowel sounds are positive. Extremities: Bilaterally bandaged. LABORATORY DATA: WBC Is 6.4, hemoglobin 9.3, hematocrit 27.2 with a platelet count of 283,000, BUN 14, creatinine 1.0. Chest x-ray not performed. IMPRESSION: 1. Chronic obstructive pulmonary disease, currently stable. 2. Left lower extremity wounds, status post fall multiple ulcerated wounds. 3. Arteriosclerotic heart disease, status post stents. 4. History of breast cancer. 5. Hyperlipidemia. 6. History of paroxysmal supraventricular tachycardia. 7. Left ventricular diastolic dysfunction. . PLAN: Continue antibiotic therapy as per Infectious Disease. Inhaled bronchodilator. Wound care, wound debridement as well as plastic surgery. BRADLEY BEAL M.D. [id number]
--- NOTE | 2018-10-14 20:30 | CONSULT ---
Consult Consult Specialty:: Heme Referred by:: Dr. Hooks Reason for Consultation:: Anemia - History of Present Illness Chief Complaint: Wound History of Present Illness: 78F with COPD, CAD, COPD, hx breast ca (stage 1 s/p RT in 1999), recent admission (08/2018) for acute hypoxic respiratory failure, now admitted for eval of LLE wound resulting from fall a week ago. Planned for debridement. Hematology consulted for anemia, mildly macrocytic. Was seen by [facility] for same on last admission. There was no evidence of nutritional deficiency. Haptoglobin was decreased. LDH 400s. Plt and WBC normal. Pt not aware of having anemia in the past. Denies melena, hematochezia, jaundice, changes in urine color. Reports normal colonoscopy about 3 years ago. Good response to blood transfusion on 10/12. - Past Medical History Cardio/Vascular: Yes: CAD, HTN, Hyperlipdemia Pulmonary: Yes: COPD ...: No Psych: Yes: Other (alcohol abuse) - Past Surgical History Past Surgical History: Yes: Breast Biopsy (left Lumpectomy), Cholecystectomy, Joint Replacement (right hip), Stent Additional Surgical History: Left hip fracture repair, BTL - Alcohol/Substance Use Hx Alcohol Use: Yes (1 per day) History of Substance Use: reports: None - Smoking History Smoking history: Former smoker Have you smoked in the past 12 months: No Aproximately how many cigarettes per day: 20 If you are a former smoker, when did you quit?: January 2018 - Social History Usual Living Arrangement: Alone ADL: Independent 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 History of Recent Travel: No Home Medications - Allergies Allergies/Adverse Reactions: Allergies Allergy/AdvReac Type Severity Reaction Status Date / Time Stock Ragweed Pollen Mixture Allergy Intermediate Cough Verified 10/11/18 12:56 No Known Drug Allergies Allergy Verified 10/11/18 12:56 - Home Medications Home Medications: Ambulatory Orders Aspirin [ASA -] 81 mg PO DAILY 02/23/17 Multivitamin [One Daily] 1 each PO DAILY 02/23/17 Albuterol 0.083% Nebulizer Billie [Ventolin 0.083% Nebulizer Soln -] 1 amp NEB Q4H PRN amp 09/13/18 Amlodipine Besylate [Norvasc -] 5 mg PO DAILY tablet 09/13/18 Budesonide/Formeterol Fumarate [SYMBICORT 160/4.5mcg -] 2 puff IH BID inhaler 09/13/18 Nebivolol [Bystolic -] 10 mg PO DAILY tab 09/13/18 Ramipril [Altace] 10 mg PO BID capsule 09/13/18 Tiotropium [place] [Spiriva Respimat] 2 puff IH DAILY inhaler 09/13/18 predniSONE [Deltasone -] 40 mg PO DAILY tablet 09/13/18 Family Disease History - Family Disease History Family Disease History: Other: Father (: 80's: intestinal ischemia vs. colon cancer), Mother (: 70's: valvular heart disease/Rheumatic fever comps) , Brother (1: : 81: dementia), Sister (1, : 30: Cervical Ca), Son (1, healthy) Review of Systems - Review of Systems Constitutional: reports: No Symptoms Eyes: reports: No Symptoms Cardiovascular: reports: No Symptoms Respiratory: reports: No Symptoms Gastrointestinal: reports: No Symptoms Integumentary: reports: Wound Physical Exam Vital Signs: Vital Signs Temperature 98.4 F 10/14/18 18:00 Pulse Rate 83 10/14/18 18:00 Respiratory Rate 18 10/14/18 18:00 Blood Pressure 114/56 L 10/14/18 18:00 O2 Sat by Pulse Oximetry (%) 98 10/14/18 09:00 Constitutional: Yes: Well Nourished Eyes: Yes: Conjunctiva Clear Neck: Yes: WNL, Other (no lad) Cardiovascular: Yes: Regular Rate and Rhythm Respiratory: Yes: Regular, CTA Bilaterally Extremities: Yes: Other (clean dressings in place) Labs: CBC, BMP 10/14/18 06:00 10/14/18 06:00 Assessment/Plan 78F with COPD, CAD, COPD, hx breast ca (stage 1 s/p RT in 1999) admitted for eval of LLE wound resulting from fall a week ago. Hematology consulted for anemia, mildly macrocytic. No evidence of nutritional deficiency. On prior admission had low hapto and elevated LDH -? hemolysis. Peripheral smear with mild anisopoikilocytosis, no obvious e/o dysplasia, one nRBC noted, no immature cells, few plt clumps. Please repeat haptoglobin, LDH; check SPEP, free light chains, TAMIKO. Will follow
[2018-10-15] MEDS ORDERED: PIPERACILLIN/TAZOBACTAM 3.375 GM VIAL IVPB ONE ×3 (00:55→16:20)
[2018-10-15] MEDS ORDERED: DEXTROSE 5%-WATER - 50 ML IVPB ONE ×3 (00:55→16:20)
[2018-10-15] MEDS: PIPERACILLIN/TAZOB 3.375 GM 3.375 GM in DEXTROSE 5%-WATER - 50 ML IVPB SCH ×3 (02:00→17:01)
[2018-10-15 07:58] LABS: BASO % 0.9 % (0-2.0); HEMATOCRIT 27.6 % (32.4-45.2); HEMOGLOBIN 9.4 GM/dL (10.7-15.3); LYMPH % 25.2 % (8-40); MCH 33.8 pg (25.7-33.7); MEAN CELL VOLUME 99.3 fl (80-96); MEAN PLT VOLUME 7.7 fl (7.5-11.1); MONO % 16.8 % (3.8-10.2); NEUT % 57.1 % (42.8-82.8); PLATELET COUNT 285 K/MM3 (134-434); RBC 2.78 M/mm3 (3.60-5.2); RDW 16.5 % (11.6-15.6); WHITE BLOOD COUNT 5.7 K/mm3 (4.0-10.0)
[2018-10-15] MEDS: PANTOPRAZOLE SODIUM 40 MG VIAL IVPUSH SCH ×2 (10:20→21:29)
[2018-10-15] MEDS: BUDESONIDE/FORMETEROL FUMARATE 160/4.5 mcg INHALER IH SCH ×2 (10:21→21:30)
[2018-10-15] MEDS: HEPARIN NA (PORCINE) 5,000 UNITS/ML 1ML VIAL SQ SCH ×2 (10:21→21:29)
[2018-10-15] MEDS: TIOTROPIUM BROMIDE 2.5 MCG (SPIRIVA) RESPIMAT INHALER IH SCH (10:21)
--- NOTE | 2018-10-15 11:23 | PN ---
Progress Note (short form) - Note Progress Note: PULMONARY Denies shortness of breath, cough or wheezing. Vital Signs Period Temp Pulse Resp BP Sys/Prakash Pulse Ox Last 24 Hr 98.4 F 83 18 114/56 98 Gen: NAD at rest Heart: RRR Lung: decreased breath sounds at the bases Abd: soft, nontender Ext: no edema CBC, BMP 10/15/18 06:50 10/14/18 06:00 Active Medications Acetaminophen (Tylenol -) 650 mg PO Q6H PRN PRN Reason: FEVER Albuterol Sulfate (Ventolin 0.083% Nebulizer Soln -) 1 amp NEB Q4H PRN PRN Reason: SHORT OF BREATH/WHEEZING Budesonide/Formoterol Fumarate (Symbicort 160/4.5mcg -) 2 puff IH BID [facility] Last Admin: 10/15/18 10:21 Dose: 2 puff Heparin Sodium (Porcine) (Heparin -) 5,000 unit SQ BID [facility] Last Admin: 10/15/18 10:21 Dose: 5,000 unit Vancomycin HCl (Vancomycin 1 Gm Premix -) 1 gm in 200 mls @ 166.667 mls/hr IVPB Q12H [facility]; Protocol Last Admin: 10/14/18 22:42 Dose: 166.667 mls/hr Piperacillin Sod/Tazobactam (Sod 3.375 gm/ Dextrose) 50 mls @ 100 mls/hr IVPB Q8H-IV [facility]; Protocol Last Admin: 10/15/18 10:20 Dose: 100 mls/hr Pantoprazole Sodium (Protonix Iv) 40 mg IVPUSH BID [facility] Last Admin: 10/15/18 10:20 Dose: 40 mg Silver Sulfadiazine (Silvadene -) 1 applic TP BID [facility] Last Admin: 10/14/18 21:43 Dose: Not Given Tiotropium [place] (Spiriva Respimat) 2 puff IH DAILY [facility] Last Admin: 10/15/18 10:21 Dose: 2 puff A/P s/p Fall LLE Wound/Ulcer Infection COPD LV Diastolic Dysfunction CAD Hyperlipidemia h/o Breast Ca - continue antibiotics per ID - wound care - inhaled bronchodilators - DVT prophylaxis
--- NOTE | 2018-10-15 11:25 | PN ---
Progress Note, Physician Chief Complaint: patient seen and examined - Current Medication List Current Medications: Active Medications Acetaminophen (Tylenol -) 650 mg PO Q6H PRN PRN Reason: FEVER Albuterol Sulfate (Ventolin 0.083% Nebulizer Soln -) 1 amp NEB Q4H PRN PRN Reason: SHORT OF BREATH/WHEEZING Budesonide/Formoterol Fumarate (Symbicort 160/4.5mcg -) 2 puff IH BID [facility] Last Admin: 10/15/18 10:21 Dose: 2 puff Heparin Sodium (Porcine) (Heparin -) 5,000 unit SQ BID [facility] Last Admin: 10/15/18 10:21 Dose: 5,000 unit Vancomycin HCl (Vancomycin 1 Gm Premix -) 1 gm in 200 mls @ 166.667 mls/hr IVPB Q12H [facility]; Protocol Last Admin: 10/14/18 22:42 Dose: 166.667 mls/hr Piperacillin Sod/Tazobactam (Sod 3.375 gm/ Dextrose) 50 mls @ 100 mls/hr IVPB Q8H-IV [facility]; Protocol Last Admin: 10/15/18 10:20 Dose: 100 mls/hr Pantoprazole Sodium (Protonix Iv) 40 mg IVPUSH BID [facility] Last Admin: 10/15/18 10:20 Dose: 40 mg Silver Sulfadiazine (Silvadene -) 1 applic TP BID [facility] Last Admin: 10/14/18 21:43 Dose: Not Given Tiotropium [place] (Spiriva Respimat) 2 puff IH DAILY [facility] Last Admin: 10/15/18 10:21 Dose: 2 puff - Objective Vital Signs: Vital Signs Temperature 98.4 F 10/14/18 18:00 Pulse Rate 83 10/14/18 18:00 Respiratory Rate 18 10/14/18 18:00 Blood Pressure 114/56 L 10/14/18 18:00 O2 Sat by Pulse Oximetry (%) 98 10/14/18 22:00 Constitutional: Yes: Calm Cardiovascular: Yes: Regular Rate and Rhythm, S1, S2 Respiratory: Yes: CTA Bilaterally Gastrointestinal: Yes: Normal Bowel Sounds, Soft Wound/Incision: Yes: Dressing Removed (open wounds on the left leg anteriorly) Neurological: Yes: Alert, Oriented Labs: CBC, BMP 10/15/18 06:50 10/14/18 06:00 INR, PTT INR 1.07 (0.83-1.09) 10/11/18 20:00 Problem List - Problems (1) Leg wound, left Assessment/Plan: dr garcía consult noted ID- zosyn vancomycin Code(s): S81.802A - UNSPECIFIED OPEN WOUND, LEFT LOWER LEG, INITIAL ENCOUNTER Qualifiers: Qualified Code(s): S81.802A - Unspecified open wound, left lower leg, initial encounter (2) COPD (chronic obstructive pulmonary disease) Assessment/Plan: symbicoet pulm on board Code(s): J44.9 - CHRONIC OBSTRUCTIVE PULMONARY DISEASE, UNSPECIFIED (3) HTN (hypertension) Assessment/Plan: given low BP hold norbaljinder and lucio Code(s): I10 - ESSENTIAL (PRIMARY) HYPERTENSION Qualifiers: (4) Anemia Assessment/Plan: iron panel noted stool occult blood transfuse one unit monitor h/h PPI heme on board Code(s): D64.9 - ANEMIA, UNSPECIFIED
[2018-10-15] MEDS: VANCOMYCIN 1 GM PREMIX - 1 GM/200 ML BAG IVPB SCH ×2 (11:37→22:49)
[2018-10-15] MEDS: SILVER SULFADIAZINE 1% TOP CREAM 50 GM JAR TP SCH ×2 (11:38→21:29)
--- NOTE | 2018-10-15 16:16 | PN ---
Physical Exam: SUBJECTIVE: Patient seen and examined at bedside. No complaints of pale skin, gross bleeding, hematuria, blood in stool, melena, fatigue. Is awaiting further care for her LLE wound. OBJECTIVE: Vital Signs Period Temp Pulse Resp BP Sys/Prakash Pulse Ox Last 24 Hr 98.4 F 83 18 114/56 98 GENERAL: The patient is awake, alert, and fully oriented, in no acute distress. ENT: Ears normal, nares patent NECK: Trachea midline, full range of motion LUNGS: Breath sounds equal, clear to auscultation bilaterally HEART: Regular rate and rhythm, S1, S2. ABDOMEN: Soft, nontender EXTREMITIES: LLE wrapped in jakob bandage and gauze to protect wound. NEUROLOGICAL: Normal speech, gait not observed. PSYCH: Normal mood. SKIN: Warm, dry. LLE wrapped in jakob bandage and gauze to protect wound. Laboratory Results - last 24 hr 10/12/18 10/15/18 10/15/18 14:30 06:50 06:50 WBC 5.7 RBC 2.78 L Hgb 9.4 L Hct 27.6 L MCV 99.3 H MCH 33.8 H MCHC 34.0 RDW 16.5 H Plt Count 285 MPV 7.7 Absolute Neuts (auto) 3.2 Neutrophils % 57.1 Lymphocytes % 25.2 Monocytes % 16.8 H Eosinophils % 0.0 Basophils % 0.9 Nucleated RBC % 0 Retic Count 3.22 H D Blood Type O POSITIVE Antibody Screen Negative Crossmatch See Detail Active Medications Generic Name Dose Route Start Last Admin Trade Name Freq PRN Reason Stop Dose Admin Acetaminophen 650 mg 10/11/18 16:47 Tylenol - PO Q6H PRN FEVER Albuterol Sulfate 1 amp 10/13/18 14:06 Ventolin 0.083% Nebulizer Soln - NEB Q4H PRN SHORT OF BREATH/WHEEZING Budesonide/Formoterol Fumarate 2 puff 10/11/18 22:00 10/15/18 10:21 Symbicort 160/4.5mcg - IH 2 puff BID [facility] Administration Heparin Sodium (Porcine) 5,000 unit 10/11/18 22:00 10/15/18 10:21 Heparin - SQ 5,000 unit BID [facility] Administration Vancomycin HCl 1 gm in 200 mls @ 166.667 mls/hr 10/12/18 11:30 10/15/18 11:37 Vancomycin 1 Gm Premix - IVPB 166.667 mls/hr Q12H [facility] Administration Protocol Piperacillin Sod/Tazobactam 50 mls @ 100 mls/hr 10/12/18 11:00 10/15/18 10:20 Sod 3.375 gm/ Dextrose IVPB 100 mls/hr Q8H-IV [facility] Administration Protocol Pantoprazole Sodium 40 mg 10/13/18 22:00 10/15/18 10:20 Protonix Iv IVPUSH 40 mg BID [facility] Administration Silver Sulfadiazine 1 applic 10/12/18 22:00 10/15/18 11:38 Silvadene - TP 1 applic BID [facility] Administration Tiotropium [place] 2 puff 10/12/18 10:00 10/15/18 10:21 Spiriva Respimat IH 2 puff DAILY [facility] Administration ASSESSMENT/PLAN: 78 y/o F w/PMH of COPD, CAD, hx of of breast ca (stage 1 s/p RT in 1999) who was admitted for LLE wound s/p fall from 1 week ago. Heme consulted for anemia. -Anemia -pt reports having a hx of anemia -s/p 1 unit PRBC on 10/12/18. Hgb has remained stable since. -Recheck haptoglobin, LD, SPEP, free light chains, TAMIKO -on previous admission had low haptoglobin and elevated LDH so may have underlying hemolysis -Retic count elevated at 3.22 -Iron studies noted. B12 - 639. Folate - 21. Visit type - Emergency Visit Emergency Visit: Yes ED Registration Date: 10/11/18 Care time: The patient presented to the Emergency Department on the above date and was hospitalized for further evaluation of their emergent condition. - New Patient This patient is new to me today: Yes Date on this admission: 10/15/18 - Critical Care Critical Care patient: No
--- NOTE | 2018-10-15 23:12 | PN ---
Teaching Attending Note Name of Resident: Alan Rinaldi ATTENDING PHYSICIAN STATEMENT I saw and evaluated the patient. I reviewed the resident's note and discussed the case with the resident. I agree with the resident's findings and plan as documented. ASSESSMENT AND PLAN: 78 y/o F w/PMH of COPD, CAD, hx of of breast ca (stage 1 s/p RT in 1999) who was admitted for LLE wound s/p fall from 1 week ago. Heme consulted for anemia. -Anemia -pt reports having a hx of anemia -s/p 1 unit PRBC on 10/12/18. Hgb has remained stable since. -Recheck haptoglobin, LD, SPEP, free light chains, TAMIKO Iron studies s/o anemia of chronic disease with low TIBC/elevated ferritin B12/folate normal flow /FISH last admission normal CT chest 04/26--copd with stable pulmonary nodularty--follow up with pulmonary out patient CT a/p non contrast--08/28 -- no active pathology will follow
[2018-10-16] MEDS ORDERED: DEXTROSE 5%-WATER - 50 ML IVPB ONE ×3 (00:57→18:43)
[2018-10-16] MEDS ORDERED: PIPERACILLIN/TAZOBACTAM 3.375 GM VIAL IVPB ONE ×3 (00:57→18:43)
[2018-10-16] MEDS: PIPERACILLIN/TAZOB 3.375 GM 3.375 GM in DEXTROSE 5%-WATER - 50 ML IVPB SCH ×2 (01:08→10:35)
[2018-10-16] MEDS ORDERED: PT OWN MED DRAWER 7, Y5N ONE (10:16)
--- NOTE | 2018-10-16 10:23 | PN ---
Progress Note (short form) - Note Progress Note: PULMONARY Denies shortness of breath, cough or wheezing. Vital Signs Period Temp Pulse Resp BP Sys/Prakash Pulse Ox Last 24 Hr 97.8 F-98.6 F 72-89 16-20 110-127/53-75 98 Gen: NAD at rest Heart: RRR Lung: decreased breath sounds at the bases Abd: soft, nontender Ext: no edema CBC, BMP 10/15/18 06:50 10/14/18 06:00 Active Medications Acetaminophen (Tylenol -) 650 mg PO Q6H PRN PRN Reason: FEVER Albuterol Sulfate (Ventolin 0.083% Nebulizer Soln -) 1 amp NEB Q4H PRN PRN Reason: SHORT OF BREATH/WHEEZING Budesonide/Formoterol Fumarate (Symbicort 160/4.5mcg -) 2 puff IH BID [facility] Last Admin: 10/15/18 21:30 Dose: 2 puff Heparin Sodium (Porcine) (Heparin -) 5,000 unit SQ BID [facility] Last Admin: 10/15/18 21:29 Dose: 5,000 unit Vancomycin HCl (Vancomycin 1 Gm Premix -) 1 gm in 200 mls @ 166.667 mls/hr IVPB Q12H [facility]; Protocol Last Admin: 10/15/18 22:49 Dose: 166.667 mls/hr Piperacillin Sod/Tazobactam (Sod 3.375 gm/ Dextrose) 50 mls @ 100 mls/hr IVPB Q8H-IV [facility]; Protocol Last Admin: 10/16/18 01:08 Dose: 100 mls/hr Pantoprazole Sodium (Protonix Iv) 40 mg IVPUSH BID [facility] Last Admin: 10/15/18 21:29 Dose: 40 mg Silver Sulfadiazine (Silvadene -) 1 applic TP BID [facility] Last Admin: 10/15/18 21:29 Dose: Not Given Tiotropium [place] (Spiriva Respimat) 2 puff IH DAILY [facility] Last Admin: 10/15/18 10:21 Dose: 2 puff A/P s/p Fall LLE Wound/Ulcer Infection COPD LV Diastolic Dysfunction CAD Hyperlipidemia h/o Breast Ca - continue antibiotics per ID - wound care - inhaled bronchodilators - DVT prophylaxis
[2018-10-16] MEDS: HEPARIN NA (PORCINE) 5,000 UNITS/ML 1ML VIAL SQ SCH (10:34)
[2018-10-16] MEDS: PANTOPRAZOLE SODIUM 40 MG VIAL IVPUSH SCH ×2 (10:35→21:57)
[2018-10-16] MEDS: SILVER SULFADIAZINE 1% TOP CREAM 50 GM JAR TP SCH (10:35)
[2018-10-16] MEDS: BUDESONIDE/FORMETEROL FUMARATE 160/4.5 mcg INHALER IH SCH ×2 (10:38→21:58)
[2018-10-16] MEDS: TIOTROPIUM BROMIDE 2.5 MCG (SPIRIVA) RESPIMAT INHALER IH SCH (10:38)
[2018-10-16] MEDS: VANCOMYCIN 1 GM PREMIX - 1 GM/200 ML BAG IVPB SCH ×2 (12:01→23:58)
--- NOTE | 2018-10-16 14:18 | PN ---
Physical Exam: SUBJECTIVE: Patient seen and examined at bedside. No new complaints. Awaiting further management of her LLE wound. OBJECTIVE: Vital Signs Period Temp Pulse Resp BP Sys/Prakash Pulse Ox Last 24 Hr 97.8 F-98.6 F 71-89 16-20 110-130/53-75 98-98 GENERAL: The patient is awake, alert, and fully oriented, in no acute distress. ENT: Ears normal, nares patent NECK: Trachea midline, full range of motion LUNGS: Breath sounds equal, clear to auscultation bilaterally HEART: Regular rate and rhythm, S1, S2. ABDOMEN: Soft, nontender EXTREMITIES: LLE wrapped in jakob bandage and gauze to protect wound. NEUROLOGICAL: Normal speech, gait not observed. PSYCH: Normal mood. SKIN: Warm, dry. LLE wrapped in jakob bandage and gauze to protect wound. Laboratory Results - last 24 hr 10/12/18 10/16/18 10/16/18 14:30 07:20 07:20 LD Total 163 Blood Type O POSITIVE Antibody Screen Negative Direct Antiglob Test Negative Crossmatch See Detail Active Medications Generic Name Dose Route Start Last Admin Trade Name Freq PRN Reason Stop Dose Admin Acetaminophen 650 mg 10/11/18 16:47 Tylenol - PO Q6H PRN FEVER Albuterol Sulfate 1 amp 10/13/18 14:06 Ventolin 0.083% Nebulizer Soln - NEB Q4H PRN SHORT OF BREATH/WHEEZING Budesonide/Formoterol Fumarate 2 puff 10/11/18 22:00 10/16/18 10:38 Symbicort 160/4.5mcg - IH 2 puff BID [facility] Administration Heparin Sodium (Porcine) 5,000 unit 10/11/18 22:00 10/16/18 10:34 Heparin - SQ 5,000 unit BID [facility] Administration Vancomycin HCl 1 gm in 200 mls @ 166.667 mls/hr 10/12/18 11:30 10/16/18 12:01 Vancomycin 1 Gm Premix - IVPB 166.667 mls/hr Q12H [facility] Administration Protocol Piperacillin Sod/Tazobactam 50 mls @ 100 mls/hr 10/12/18 11:00 10/16/18 10:35 Sod 3.375 gm/ Dextrose IVPB 100 mls/hr Q8H-IV [facility] Administration Protocol Pantoprazole Sodium 40 mg 10/13/18 22:00 10/16/18 10:35 Protonix Iv IVPUSH 40 mg BID [facility] Administration Silver Sulfadiazine 1 applic 10/12/18 22:00 10/16/18 10:35 Silvadene - TP Not Given BID [facility] Tiotropium [place] 2 puff 10/12/18 10:00 10/16/18 10:38 Spiriva Respimat IH 2 puff DAILY [facility] Administration ASSESSMENT/PLAN: 78 y/o F w/PMH of COPD, CAD, hx of of breast ca (stage 1 s/p RT in 1999) who was admitted for LLE wound s/p fall from 1 week ago. Heme consulted for anemia. -Macrocytic anemia -pt reports having a hx of anemia -s/p 1 unit PRBC on 10/12/18. Hgb has remained stable since. -Recheck haptoglobin, LD, SPEP, free light chains, TAMIKO -on previous admission had low haptoglobin and elevated LDH so may have underlying hemolysis -Retic count 3.22 but corrected retic count is 2, mildly elevated. LD normal and haptoglobin still pending. Will work up further if haptoglobin shows signs of hemolytic anemia. -LD 163 -haptoglobin still pending -Iron studies noted. B12 - 639. Folate - 21. Visit type - Emergency Visit Emergency Visit: Yes ED Registration Date: 10/11/18 Care time: The patient presented to the Emergency Department on the above date and was hospitalized for further evaluation of their emergent condition. - New Patient This patient is new to me today: No - Critical Care Critical Care patient: No
[2018-10-16] MEDS ORDERED: LIDOCAINE 1%-EPI 1:100,000 30 ML MDV IJ ONE (15:03)
[2018-10-16] MEDS ORDERED: MINERAL OIL 25 ML OIL ONE (15:04)
[2018-10-16] MEDS ORDERED: DESFLURANE GAS 240 ML BOTTLE IH ONE (16:10)
[2018-10-16] MEDS ORDERED: PROPOFOL 20 ML ONE (16:20)
[2018-10-16] MEDS ORDERED: KETOROLAC TROMETHAMINE 30 MG/1 ML VIAL ONE (16:33)
[2018-10-16] MEDS ORDERED: ceFAZolin SODIUM 1 GM VIAL IVPB ONE (16:41)
[2018-10-16] MEDS ORDERED: BUPIVACAINE HCL/PF (5 MG/ML) 30 ML VIAL IJ ONE (16:54)
[2018-10-16] MEDS ORDERED: LIDOCAINE 1%/EPI 1:100000 (20 ML MULTI DOSE VIAL) IJ ONE (16:54)
[2018-10-16] MEDS ORDERED: MINERAL OIL 25 ML OIL TP ONE (16:54)
--- NOTE | 2018-10-16 17:19 | PN ---
Progress Note (short form) - Note Progress Note: Went to assess patient and she is off unit to OR. Patient is in OR having surgical debridement of LLE. Patient is being followed by Dr. Isabel for wound management of LLE. Labs reviewed and no leukocytosis noted and Hg stable at 9.4. LFTs and electrolytes within normal range. Will continue with vancomycin and zosyn IV. Will follow up with patient.
[2018-10-16] MEDS ORDERED: PROMETHAZINE HCL 25 MG/1 ML VIAL IVPUSH PRN (18:11)
[2018-10-16] MEDS ORDERED: oxyCODONE HCL 5 MG TABLET PO PRN ×2 (18:11→18:59)
[2018-10-16] MEDS ORDERED: ONDANSETRON 4 MG/2 ML VIAL IVPUSH PRN ×2 (18:11→18:59)
--- NOTE | 2018-10-16 18:44 | PN ---
Teaching Attending Note Name of Resident: Alan Rinaldi ATTENDING PHYSICIAN STATEMENT I saw and evaluated the patient. I reviewed the resident's note and discussed the case with the resident. I agree with the resident's findings and plan as documented. SUBJECTIVE: For debridement Macrocytic anemia - normal B-12, folate. Mild increase in retic may be responsible for macrocytosis Fe++ studies compatible with chronic disease. Awaiting haptoglobin. OBJECTIVE: ASSESSMENT AND PLAN:
[2018-10-16] MEDS ORDERED: ALBUTEROL SO4 0.083% IH SOL 2.5 MG/3 ML VIAL.NEB. NEB PRN (18:59)
[2018-10-16] MEDS ORDERED: ACETAMINOPHEN 325 MG TABLET (FP) PO PRN (18:59)
--- NOTE | 2018-10-16 20:50 | OP ---
DATE OF OPERATION: DATE OF DICTATION: 10/16/2018 PREOPERATIVE DIAGNOSES: Multiple lacerations, loss of tissue, skin avulsion, lower extremities related to trauma, fall from a couple of stairs. POSTOPERATIVE DIAGNOSES: Multiple lacerations, loss of tissue, skin avulsion, lower extremities related to trauma, fall from a couple of stairs with loss of skin, left lower leg; skin avulsions, right and left lower legs with loss of tissue. PROCEDURES DONE: 1. Debridement of skin, subcutaneous tissue and fat. 2. Pulsavac irrigation. 3. Split-thickness skin graft, one-tenth of an inch. SURGEON: Heike Gordon MD ANESTHESIA: General. HISTORY: The patient is a 78-year-old thin-built female. Over two weeks ago, she fell from her stairs as she lost balance with her cane. She fell several steps, resulting in significant injuries to both lower extremities and a massive skin avulsion on the lateral aspect of her left leg. The patient did not seek any treatment for over a week. She was then seen in the wound clinic from which she was admitted for wound care, IV antibiotics, and being prepped for skin grafting procedure. DESCRIPTION OF PROCEDURE: Patient was brought to the operating room. She was transferred to the table. General anesthesia was administered. Timeout was carried out. The sites of surgery were identified. A donor area on the right thigh was first washed and cleaned with Betadine soap and solution. The lower extremities were prepped with Betadine soap and solution. Draping was performed in a standard aseptic manner. A Funmilayo dermatome was used to take a split-thickness skin graft from the right upper thigh. Thickness was kept at 1/12 of an inch. On application of dermatome onto the skin, it was realized that the skin was too thin and resulted in a cut onto her thigh which extended up to the fascia. The dermatome was then re-adjusted to 1/10 of an inch in thickness. A split-thickness skin graft was then taken from the medial and lateral aspects of her skin. This was then mashed to 1-1/2 times. The cut with the dermatome then had to be repaired using 4-0 Prolene. Running sutures were applied. Debridement of skin, subcutaneous tissue and fat was carried out using a 10 scalpel blade. The same procedure was performed on the right leg, lateral aspect. The left lower wound, which was the largest of all six of the wounds, was 13.5 x 4.8 x 0.3 cm, extending out into the subcutaneous fat. The others measured anywhere between 2.5 and 3.5 cm with a depth of 0.2, covered with fibrinous tissue. A wound culture was taken from the right lower leg wound. Following debridement, Pulsavac irrigation with 2000 mL of normal saline was carried out. Mashing of the graft was done to 1-1/2 times and then was applied to the open wounds, where it was surgically fixated using Dermabond and gauze. Xeroform, bacitracin, Kerlix, Coban and King were then applied. A similar procedure was carried out on the right leg. The donor area was covered with Xeroform, bacitracin and Tegaderm, followed by compression using Kerlix and Coban. Estimated blood loss was approximately 50 to 60 mL. At the end of the procedure, circulation to the feet was satisfactory. The patient was then transferred to the table and was sent to the recovery room in satisfactory condition. She will be hospitalized for a few more days. HEIKE GORDON M.D. [id number]
[2018-10-17] MEDS ORDERED: PIPERACILLIN/TAZOBACTAM 3.375 GM VIAL IVPB ONE ×3 (00:41→17:19)
[2018-10-17] MEDS ORDERED: DEXTROSE 5%-WATER - 50 ML IVPB ONE ×3 (00:41→17:19)
[2018-10-17] MEDS: PIPERACILLIN/TAZOB 3.375 GM 3.375 GM in DEXTROSE 5%-WATER - 50 ML IVPB SCH ×3 (01:03→17:23)
[2018-10-17 07:10] LABS: HEMATOCRIT 26.3 % (32.4-45.2); HEMOGLOBIN 8.9 GM/dL (10.7-15.3); MCH 33.5 pg (25.7-33.7); MCHC 33.7 g/dl (32.0-36.0); MEAN CELL VOLUME 99.4 fl (80-96); MEAN PLT VOLUME 7.3 fl (7.5-11.1); PLATELET COUNT 282 K/MM3 (134-434); RBC 2.65 M/mm3 (3.60-5.2); RDW 15.8 % (11.6-15.6); WHITE BLOOD COUNT 4.8 K/mm3 (4.0-10.0)
[2018-10-17 07:40] LABS: ALK PHOS 58 U/L (45-117); ANION GAP 8 MMOL/L (8-16); BILIRUBIN,TOTAL 0.5 mg/dL (0.2-1); BLOOD UREA NITROGEN 13 mg/dL (7-18); CALCIUM 8.2 mg/dL (8.5-10.1); CHLORIDE 104 mmol/L (98-107); CO2 28 mmol/L (21-32); CREATININE 0.9 mg/dL (0.55-1.3); GLUCOSE,RANDOM 93 mg/dL (74-106); POTASSIUM 4.3 mmol/L (3.5-5.1); SGOT/AST 26 U/L (15-37); SGPT/ALT 14 U/L (13-61); SODIUM 139 mmol/L (136-145); TOT PROT 4.9 g/dl (6.4-8.2)
[2018-10-17] MEDS: PANTOPRAZOLE SODIUM 40 MG VIAL IVPUSH SCH ×2 (10:27→21:25)
[2018-10-17] MEDS: TIOTROPIUM BROMIDE 2.5 MCG (SPIRIVA) RESPIMAT INHALER IH SCH (10:28)
[2018-10-17] MEDS: BUDESONIDE/FORMETEROL FUMARATE 160/4.5 mcg INHALER IH SCH ×2 (10:29→21:26)
[2018-10-17] MEDS: VANCOMYCIN 1 GM PREMIX - 1 GM/200 ML BAG IVPB SCH ×2 (11:33→22:48)
--- NOTE | 2018-10-17 13:43 | PN ---
Progress Note (short form) - Note Progress Note: POD #1 - s/p bilateral lower extremity debridement/STSG under general anesthesia. VSS. Pt. doing well, resting comfortably in bed. No complaints. No apparent anesthetic complications noted. Continue current care.
--- NOTE | 2018-10-17 14:10 | PN ---
Progress Note, Physician Chief Complaint: Lower Extremity Wound Anemia History of Present Illness: Previous notes and events reviewed awake and alert NAD denies complaints of pain, chest pain, SOB - Current Medication List Current Medications: Active Medications Acetaminophen (Tylenol -) 650 mg PO Q6H PRN PRN Reason: FEVER Albuterol Sulfate (Ventolin 0.083% Nebulizer Soln -) 1 amp NEB Q4H PRN PRN Reason: SHORT OF BREATH/WHEEZING Budesonide/Formoterol Fumarate (Symbicort 160/4.5mcg -) 2 puff IH BID [facility] Last Admin: 10/17/18 10:29 Dose: 2 puff Vancomycin HCl (Vancomycin 1 Gm Premix -) 1 gm in 200 mls @ 166.667 mls/hr IVPB Q12H [facility]; Protocol Last Admin: 10/17/18 11:33 Dose: 166.667 mls/hr Piperacillin Sod/Tazobactam (Sod 3.375 gm/ Dextrose) 50 mls @ 100 mls/hr IVPB Q8H-IV [facility]; Protocol Last Admin: 10/17/18 10:29 Dose: 100 mls/hr Oxycodone HCl (Roxicodone -) 10 mg PO Q4H PRN PRN Reason: PAIN LEVEL 6-10 Pantoprazole Sodium (Protonix Iv) 40 mg IVPUSH BID [facility] Last Admin: 10/17/18 10:27 Dose: 40 mg Tiotropium [place] (Spiriva Respimat) 2 puff IH DAILY [facility] Last Admin: 10/17/18 10:28 Dose: 2 puff - Objective Vital Signs: Vital Signs Temperature 98.5 F 10/17/18 10:00 Pulse Rate 76 10/17/18 10:00 Respiratory Rate 18 10/17/18 10:00 Blood Pressure 134/88 10/17/18 10:00 O2 Sat by Pulse Oximetry (%) 99 10/17/18 09:00 Constitutional: Yes: No Distress, Calm Eyes: Yes: Conjunctiva Clear HENT: Yes: Atraumatic Cardiovascular: Yes: Regular Rate and Rhythm Respiratory: Yes: CTA Bilaterally, On Nasal O2 Gastrointestinal: Yes: Normal Bowel Sounds, Soft Genitourinary: Yes: Incontinence Musculoskeletal: Yes: Muscle Weakness Extremities: Yes: WNL Edema: No Wound/Incision: Yes: Dressing Dry and Intact Neurological: Yes: Alert, Oriented Psychiatric: Yes: Alert, Oriented Labs: CBC, BMP 10/17/18 06:30 10/17/18 06:30 INR, PTT INR 1.07 (0.83-1.09) 10/11/18 20:00 Microbiology 10/11/18 16:43 Leg - Left Lower Gram Stain - Final 10/11/18 16:43 Leg - Left Lower Wound Culture - Final Enterococcus Faecium Yeast Like Organism Problem List - Problems (1) Malnutrition Assessment/Plan: -dietary consult -daily weight Code(s): E46 - UNSPECIFIED PROTEIN-CALORIE MALNUTRITION (2) Anemia Assessment/Plan: -Heme and GI on board -elev Retic and Haptoglobin -Hg 8.9 -monitor Hg and transfuse for Hg <8.0 -continue pantoprazole Code(s): D64.9 - ANEMIA, UNSPECIFIED (3) COPD (chronic obstructive pulmonary disease) Assessment/Plan: -Symbicort + Spiriva -Bronchodilators -O2 via NC -keep SpO2 >90% -pulm on board Code(s): J44.9 - CHRONIC OBSTRUCTIVE PULMONARY DISEASE, UNSPECIFIED (4) Leg wound, left Assessment/Plan: -wound care as ordered -being followed by Dr Isabel -POD #1 s/p B/L lower extremity debridement -continue IV vanco and zosyn -pain management Code(s): S81.802A - UNSPECIFIED OPEN WOUND, LEFT LOWER LEG, INITIAL ENCOUNTER Qualifiers: Encounter type: initial encounter Qualified Code(s): S81.802A - Unspecified open wound, left lower leg, initial encounter (5) HTN (hypertension) Assessment/Plan: -low Na diet Code(s): I10 - ESSENTIAL (PRIMARY) HYPERTENSION Qualifiers: Assessment/Plan see problem list dvt ppx
--- NOTE | 2018-10-17 16:08 | PN ---
Progress Note, Physician History of Present Illness: PULMONARY ALERT,NO DISTRESS,-SOB,S/P DEBRIDEMENT - Current Medication List Current Medications: Active Medications Acetaminophen (Tylenol -) 650 mg PO Q6H PRN PRN Reason: FEVER Albuterol Sulfate (Ventolin 0.083% Nebulizer Soln -) 1 amp NEB Q4H PRN PRN Reason: SHORT OF BREATH/WHEEZING Budesonide/Formoterol Fumarate (Symbicort 160/4.5mcg -) 2 puff IH BID [facility] Last Admin: 10/17/18 10:29 Dose: 2 puff Vancomycin HCl (Vancomycin 1 Gm Premix -) 1 gm in 200 mls @ 166.667 mls/hr IVPB Q12H [facility]; Protocol Last Admin: 10/17/18 11:33 Dose: 166.667 mls/hr Piperacillin Sod/Tazobactam (Sod 3.375 gm/ Dextrose) 50 mls @ 100 mls/hr IVPB Q8H-IV [facility]; Protocol Last Admin: 10/17/18 10:29 Dose: 100 mls/hr Oxycodone HCl (Roxicodone -) 10 mg PO Q4H PRN PRN Reason: PAIN LEVEL 6-10 Pantoprazole Sodium (Protonix Iv) 40 mg IVPUSH BID [facility] Last Admin: 10/17/18 10:27 Dose: 40 mg Tiotropium [place] (Spiriva Respimat) 2 puff IH DAILY [facility] Last Admin: 10/17/18 10:28 Dose: 2 puff - Objective Vital Signs: Vital Signs Temperature 98.5 F 10/17/18 10:00 Pulse Rate 76 10/17/18 10:00 Respiratory Rate 18 10/17/18 10:00 Blood Pressure 134/88 10/17/18 10:00 O2 Sat by Pulse Oximetry (%) 99 10/17/18 09:00 Constitutional: Yes: Calm, Thin Eyes: Yes: WNL HENT: Yes: WNL Neck: Yes: WNL Cardiovascular: Yes: Regular Rate and Rhythm, S1, S2 Respiratory: Yes: CTA Bilaterally Gastrointestinal: Yes: Normal Bowel Sounds, Soft Extremities: Yes: Other (WRAPPED) Edema: No Labs: CBC, BMP 10/17/18 06:30 10/17/18 06:30 INR, PTT INR 1.07 (0.83-1.09) 10/11/18 20:00 Problem List - Problems (1) Anemia Code(s): D64.9 - ANEMIA, UNSPECIFIED (2) COPD (chronic obstructive pulmonary disease) Code(s): J44.9 - CHRONIC OBSTRUCTIVE PULMONARY DISEASE, UNSPECIFIED (3) Leg wound, left Code(s): S81.802A - UNSPECIFIED OPEN WOUND, LEFT LOWER LEG, INITIAL ENCOUNTER Qualifiers: Encounter type: initial encounter Qualified Code(s): S81.802A - Unspecified open wound, left lower leg, initial encounter (4) Breast CA Code(s): C50.919 - MALIGNANT NEOPLASM OF UNSP SITE OF UNSPECIFIED FEMALE BREAST (5) CAD (coronary artery disease) Code(s): I25.10 - ATHSCL HEART DISEASE OF [place] CORONARY ARTERY W/O ANG PCTRS Qualifiers: Coronary Disease-Associated Artery/Lesion type: [place] artery [place] vs. transplanted heart: [place] heart Associated angina: without angina Qualified Code(s): I25.10 - Atherosclerotic heart disease of [place] coronary artery without angina pectoris (6) Laceration Code(s): WQA3507 - (7) PSVT (paroxysmal supraventricular tachycardia) Code(s): I47.1 - SUPRAVENTRICULAR TACHYCARDIA Assessment/Plan IMP COPD STABLE LLE WOUND S/P FALL S/P DEBRIDEMENT ASHD H/O BREAST CA HLD PSVT LV DIASTOLIC DYSFUNCTION PLAN ABX PER ID INHALED BRONCHODILATORS WOUND CARE CHEST X-RAY DR BEAL Problem List - Problems (1) Anemia Code(s): D64.9 - ANEMIA, UNSPECIFIED (2) COPD (chronic obstructive pulmonary disease) Code(s): J44.9 - CHRONIC OBSTRUCTIVE PULMONARY DISEASE, UNSPECIFIED (3) Leg wound, left Code(s): S81.802A - UNSPECIFIED OPEN WOUND, LEFT LOWER LEG, INITIAL ENCOUNTER Qualifiers: Encounter type: initial encounter Qualified Code(s): S81.802A - Unspecified open wound, left lower leg, initial encounter (4) Breast CA Code(s): C50.919 - MALIGNANT NEOPLASM OF UNSP SITE OF UNSPECIFIED FEMALE BREAST (5) CAD (coronary artery disease) Code(s): I25.10 - ATHSCL HEART DISEASE OF [place] CORONARY ARTERY W/O ANG PCTRS Qualifiers: Coronary Disease-Associated Artery/Lesion type: [place] artery [place] vs. transplanted heart: [place] heart Associated angina: without angina Qualified Code(s): I25.10 - Atherosclerotic heart disease of [place] coronary artery without angina pectoris (6) Laceration Code(s): HHE5444 - (7) PSVT (paroxysmal supraventricular tachycardia) Code(s): I47.1 - SUPRAVENTRICULAR TACHYCARDIA
--- NOTE | 2018-10-17 18:02 | PN ---
Progress Note (short form) - Note Progress Note: Post Op day 1, skin grafting both lower legs Awake, alert, no c/o pain lower legs Examination : Circulation both feet intact Right thigh dressing slightly tinged with blood Lower legs : Dressings intact, no calf tenderness Plan : 1. Patient may be discharged to home tomorrow if stable and IV antibiotics are completed course 2. May have BRP . 3. No showers 4. Keep all dressings dry 5 May sit on chair but keep both legs elevated on stool or chair 6. At night have legs elevated 7. Dressings for Left knee wounds above [place] to be changed twice a week, clean with NSS, Apply silvidine cream and cover with dry gauze, other dressings to be left alone FU in wound clinic Monday x 1 week
--- NOTE | 2018-10-17 18:36 | PN ---
Progress Note (short form) - Note Progress Note: Patient seen and examined S/p debridement with dressing change Last Vital Signs Temp Pulse Resp BP Pulse Ox 98.5 F 76 18 134/88 99 10/17/18 10:00 10/17/18 10:00 10/17/18 10:00 10/17/18 10:00 10/17/18 09:00 HEENT: [place], EOM Intact Cor: RSR, No murmurs, No gallops Lungs: rhonchi and diminished breath sounds Abd: Soft, Normal bowel sounds, No organomegaly Ext- dressings - lower extremities ; RLE proximally minimal blood tinged CBC, BMP 10/17/18 06:30 10/17/18 06:30 Current Medications Generic Name Dose Route Start Last Admin Trade Name Freq PRN Reason Stop Dose Admin Acetaminophen 650 mg 10/16/18 18:59 Tylenol - PO Q6H PRN FEVER Albuterol Sulfate 1 amp 10/16/18 18:59 Ventolin 0.083% Nebulizer Soln - NEB Q4H PRN SHORT OF BREATH/WHEEZING Budesonide/Formoterol Fumarate 2 puff 10/16/18 22:00 10/17/18 10:29 Symbicort 160/4.5mcg - IH 2 puff BID [facility] Administration Vancomycin HCl 1 gm in 200 mls @ 166.667 mls/hr 10/16/18 23:30 10/17/18 11:33 Vancomycin 1 Gm Premix - IVPB 166.667 mls/hr Q12H [facility] Administration Protocol Piperacillin Sod/Tazobactam 50 mls @ 100 mls/hr 10/17/18 02:00 10/17/18 17:23 Sod 3.375 gm/ Dextrose IVPB 100 mls/hr Q8H-IV [facility] Administration Protocol Oxycodone HCl 10 mg 10/16/18 18:59 Roxicodone - PO Q4H PRN PAIN LEVEL 6-10 Pantoprazole Sodium 40 mg 10/16/18 22:00 10/17/18 10:27 Protonix Iv IVPUSH 40 mg BID [facility] Administration Tiotropium [place] 2 puff 10/17/18 10:00 10/17/18 10:28 Spiriva Respimat IH 2 puff DAILY [facility] Administration Impression: S/P debridement with dressing change Macrocytic anemia COPD Haptoglobin elevated - acute phase Immunoglobulins pending Monitoring Hct-stable.
[2018-10-18] MEDS ORDERED: PIPERACILLIN/TAZOBACTAM 3.375 GM VIAL IVPB ONE ×3 (00:23→18:17)
[2018-10-18] MEDS ORDERED: DEXTROSE 5%-WATER - 50 ML IVPB ONE ×3 (00:23→18:18)
[2018-10-18] MEDS: PIPERACILLIN/TAZOB 3.375 GM 3.375 GM in DEXTROSE 5%-WATER - 50 ML IVPB SCH ×3 (01:37→18:28)
[2018-10-18 08:38] LABS: HEMATOCRIT 28.6 % (32.4-45.2); HEMOGLOBIN 9.7 GM/dL (10.7-15.3); MCH 33.5 pg (25.7-33.7); MCHC 33.8 g/dl (32.0-36.0); MEAN CELL VOLUME 99.2 fl (80-96); MEAN PLT VOLUME 7.1 fl (7.5-11.1); PLATELET COUNT 293 K/MM3 (134-434); RBC 2.88 M/mm3 (3.60-5.2); RDW 15.6 % (11.6-15.6); WHITE BLOOD COUNT 5.9 K/mm3 (4.0-10.0)
[2018-10-18 09:04] LABS: ALBUMIN 2.2 g/dl (3.4-5.0); ALK PHOS 68 U/L (45-117); ANION GAP 8 MMOL/L (8-16); BILIRUBIN,TOTAL 0.4 mg/dL (0.2-1); BLOOD UREA NITROGEN 14 mg/dL (7-18); CHLORIDE 104 mmol/L (98-107); CO2 28 mmol/L (21-32); GLUCOSE,RANDOM 118 mg/dL (74-106); POTASSIUM 4.3 mmol/L (3.5-5.1); SGOT/AST 30 U/L (15-37); SGPT/ALT 15 U/L (13-61); SODIUM 140 mmol/L (136-145); TOT PROT 5.6 g/dl (6.4-8.2)
[2018-10-18] MEDS: PANTOPRAZOLE SODIUM 40 MG VIAL IVPUSH SCH ×2 (10:02→22:59)
[2018-10-18] MEDS: BUDESONIDE/FORMETEROL FUMARATE 160/4.5 mcg INHALER IH SCH ×2 (10:11→23:00)
[2018-10-18] MEDS: TIOTROPIUM BROMIDE 2.5 MCG (SPIRIVA) RESPIMAT INHALER IH SCH (10:11)
--- NOTE | 2018-10-18 10:28 | PN ---
Progress Note (short form) - Note Progress Note: PULMONARY Denies shortness of breath, cough or wheezing. s/p debridement. Vital Signs Period Temp Pulse Resp BP Sys/Prakash Pulse Ox Last 24 Hr 97.8 F-98.3 F 70-82 18-20 131/61 Gen: NAD at rest Heart: RRR Lung: decreased breath sounds at the bases Abd: soft, nontender Ext: no edema CBC, BMP 10/18/18 08:00 10/18/18 08:00 Active Medications Acetaminophen (Tylenol -) 650 mg PO Q6H PRN PRN Reason: FEVER Albuterol Sulfate (Ventolin 0.083% Nebulizer Soln -) 1 amp NEB Q4H PRN PRN Reason: SHORT OF BREATH/WHEEZING Budesonide/Formoterol Fumarate (Symbicort 160/4.5mcg -) 2 puff IH BID [facility] Last Admin: 10/18/18 10:11 Dose: 2 puff Vancomycin HCl (Vancomycin 1 Gm Premix -) 1 gm in 200 mls @ 166.667 mls/hr IVPB Q12H [facility]; Protocol Last Admin: 10/17/18 22:48 Dose: 166.667 mls/hr Piperacillin Sod/Tazobactam (Sod 3.375 gm/ Dextrose) 50 mls @ 100 mls/hr IVPB Q8H-IV [facility]; Protocol Last Admin: 10/18/18 10:01 Dose: 100 mls/hr Oxycodone HCl (Roxicodone -) 10 mg PO Q4H PRN PRN Reason: PAIN LEVEL 6-10 Pantoprazole Sodium (Protonix Iv) 40 mg IVPUSH BID [facility] Last Admin: 10/18/18 10:02 Dose: 40 mg Tiotropium [place] (Spiriva Respimat) 2 puff IH DAILY [facility] Last Admin: 10/18/18 10:11 Dose: 2 puff A/P s/p Fall LLE Wound/Ulcer Infection COPD LV Diastolic Dysfunction CAD Hyperlipidemia h/o Breast Ca - complete antibiotics per ID - wound care - inhaled bronchodilators - DVT prophylaxis - d/c planning
[2018-10-18] MEDS: VANCOMYCIN 1 GM PREMIX - 1 GM/200 ML BAG IVPB SCH ×2 (11:54→23:00)
--- NOTE | 2018-10-18 13:14 | PN ---
Progress Note, Physician Chief Complaint: Lower Extremity Wound Anemia History of Present Illness: Previous notes and events reviewed awake and alert NAD denies complaints of pain, chest pain, SOB - Current Medication List Current Medications: Active Medications Acetaminophen (Tylenol -) 650 mg PO Q6H PRN PRN Reason: FEVER Albuterol Sulfate (Ventolin 0.083% Nebulizer Soln -) 1 amp NEB Q4H PRN PRN Reason: SHORT OF BREATH/WHEEZING Budesonide/Formoterol Fumarate (Symbicort 160/4.5mcg -) 2 puff IH BID [facility] Last Admin: 10/18/18 10:11 Dose: 2 puff Vancomycin HCl (Vancomycin 1 Gm Premix -) 1 gm in 200 mls @ 166.667 mls/hr IVPB Q12H [facility]; Protocol Last Admin: 10/18/18 11:54 Dose: 166.667 mls/hr Piperacillin Sod/Tazobactam (Sod 3.375 gm/ Dextrose) 50 mls @ 100 mls/hr IVPB Q8H-IV [facility]; Protocol Last Admin: 10/18/18 10:01 Dose: 100 mls/hr Oxycodone HCl (Roxicodone -) 10 mg PO Q4H PRN PRN Reason: PAIN LEVEL 6-10 Pantoprazole Sodium (Protonix Iv) 40 mg IVPUSH BID [facility] Last Admin: 10/18/18 10:02 Dose: 40 mg Tiotropium [place] (Spiriva Respimat) 2 puff IH DAILY [facility] Last Admin: 10/18/18 10:11 Dose: 2 puff - Objective Vital Signs: Vital Signs Temperature 98.3 F 10/18/18 05:20 Pulse Rate 82 10/18/18 05:20 Respiratory Rate 19 10/18/18 05:20 Blood Pressure 131/61 10/18/18 05:20 O2 Sat by Pulse Oximetry (%) 99 10/17/18 09:00 Constitutional: Yes: No Distress, Calm Eyes: Yes: Conjunctiva Clear HENT: Yes: Atraumatic Cardiovascular: Yes: Regular Rate and Rhythm Respiratory: Yes: Regular, CTA Bilaterally Gastrointestinal: Yes: Normal Bowel Sounds, Soft Genitourinary: Yes: Incontinence Musculoskeletal: Yes: Muscle Weakness Extremities: Yes: WNL Edema: No Neurological: Yes: Alert, Oriented Psychiatric: Yes: Alert, Oriented Labs: CBC, BMP 10/18/18 08:00 10/18/18 08:00 INR, PTT INR 1.07 (0.83-1.09) 10/11/18 20:00 Microbiology 10/16/18 17:54 Leg - Right Lower Gram Stain - Final 10/16/18 17:54 Leg - Right Lower Wound Culture - Preliminary NO GROWTH OBTAINED AFTER 24 HOURS INCUBATION, REINCUBATED. 10/11/18 16:43 Leg - Left Lower Gram Stain - Final 10/11/18 16:43 Leg - Left Lower Wound Culture - Final Enterococcus Faecium Yeast Like Organism Problem List - Problems (1) Malnutrition Assessment/Plan: -dietary consult -daily weight -Ensure BID Code(s): E46 - UNSPECIFIED PROTEIN-CALORIE MALNUTRITION (2) Anemia Assessment/Plan: -Heme and GI on board -elev Retic and Haptoglobin -Hg 9.7 -monitor Hg and transfuse for Hg <8.0 -continue pantoprazole Code(s): D64.9 - ANEMIA, UNSPECIFIED (3) COPD (chronic obstructive pulmonary disease) Assessment/Plan: -Symbicort + Spiriva -Bronchodilators -O2 via NC -keep SpO2 >90% -pulm on board Code(s): J44.9 - CHRONIC OBSTRUCTIVE PULMONARY DISEASE, UNSPECIFIED (4) Leg wound, left Assessment/Plan: -wound care as ordered -being followed by Dr Isabel -POD #2 s/p B/L lower extremity debridement -continue IV vanco and zosyn -pain management Code(s): S81.802A - UNSPECIFIED OPEN WOUND, LEFT LOWER LEG, INITIAL ENCOUNTER Qualifiers: Encounter type: initial encounter Qualified Code(s): S81.802A - Unspecified open wound, left lower leg, initial encounter (5) HTN (hypertension) Assessment/Plan: -low Na diet Code(s): I10 - ESSENTIAL (PRIMARY) HYPERTENSION Qualifiers: Assessment/Plan see problem list dvt ppx
--- NOTE | 2018-10-18 15:47 | PATH ---
Surgical Pathology Report Patient Name: SIDRA OSEGUERA Med. Rec. #: [id number] /Age/Gender: 1940 (Age: 78) / F Account: [id number] Location: [address] [place] [address]/[facility] Taken: 10/16/2018 Received: 10/17/2018 Reported: 10/18/2018 Physicians: Wilfrido Lozoya M.D. Specimen(s) Received DEBRIDEMENT TISSUE Clinical History Bilateral leg wounds Final Diagnosis DEBRIDEMENT TISSUE, EXCISION: SKIN AND FIBROUS TISSUE WITH GANGRENOUS NECROSIS, SEVERE ACUTE INFLAMMATION, AND HEMORRHAGE. Electronically Signed Katarina Ha M.D. Gross Description Received in formalin labeled "debridement tissue," is a 6.0 x 2.4 x 0.4 cm aggregate of multiple orta-brown, necrotic portions of the skin and soft tissue. Biochemistry Technologist sections are submitted in one cassette. /10/17/2018 saudi/10/17/2018
[2018-10-18] MEDS ORDERED: PT OWN MED DRAWER 7, Y5N ONE (22:56)
[2018-10-19] MEDS ORDERED: PIPERACILLIN/TAZOBACTAM 3.375 GM VIAL IVPB ONE ×3 (02:36→17:46)
[2018-10-19] MEDS ORDERED: DEXTROSE 5%-WATER - 50 ML IVPB ONE ×3 (02:36→17:46)
[2018-10-19] MEDS: PIPERACILLIN/TAZOB 3.375 GM 3.375 GM in DEXTROSE 5%-WATER - 50 ML IVPB SCH ×3 (02:43→17:50)
[2018-10-19 06:51] LABS: HEMOGLOBIN 8.8 GM/dL (10.7-15.3); MCH 33.3 pg (25.7-33.7); MCHC 33.8 g/dl (32.0-36.0); MEAN CELL VOLUME 98.6 fl (80-96); MEAN PLT VOLUME 7.7 fl (7.5-11.1); PLATELET COUNT 274 K/MM3 (134-434); RBC 2.64 M/mm3 (3.60-5.2); RDW 15.4 % (11.6-15.6); WHITE BLOOD COUNT 7.9 K/mm3 (4.0-10.0)
[2018-10-19 07:20] LABS: ALK PHOS 58 U/L (45-117); ANION GAP 6 MMOL/L (8-16); BILIRUBIN,TOTAL 0.4 mg/dL (0.2-1); BLOOD UREA NITROGEN 18 mg/dL (7-18); CALCIUM 8.1 mg/dL (8.5-10.1); CHLORIDE 102 mmol/L (98-107); CO2 27 mmol/L (21-32); GLUCOSE,RANDOM 111 mg/dL (74-106); POTASSIUM 4.6 mmol/L (3.5-5.1); SGOT/AST 26 U/L (15-37); SGPT/ALT 13 U/L (13-61); SODIUM 136 mmol/L (136-145); TOT PROT 5.2 g/dl (6.4-8.2)
[2018-10-19] MEDS: PANTOPRAZOLE SODIUM 40 MG VIAL IVPUSH SCH ×2 (09:37→22:00)
[2018-10-19] MEDS: TIOTROPIUM BROMIDE 2.5 MCG (SPIRIVA) RESPIMAT INHALER IH SCH (09:39)
[2018-10-19] MEDS: BUDESONIDE/FORMETEROL FUMARATE 160/4.5 mcg INHALER IH SCH ×3 (09:39→22:06)
[2018-10-19] MEDS: VANCOMYCIN 1 GM PREMIX - 1 GM/200 ML BAG IVPB SCH ×2 (11:45→22:32)
--- NOTE | 2018-10-19 12:32 | PN ---
Progress Note, Physician Chief Complaint: Lower Extremity Wound Anemia History of Present Illness: Previous notes and events reviewed awake and alert NAD denies complaints of chest pain or SOB complain of new onset cough states having increased bleeding from leg - Current Medication List Current Medications: Active Medications Acetaminophen (Tylenol -) 650 mg PO Q6H PRN PRN Reason: FEVER Albuterol Sulfate (Ventolin 0.083% Nebulizer Soln -) 1 amp NEB Q4H PRN PRN Reason: SHORT OF BREATH/WHEEZING Last Admin: 10/19/18 08:23 Dose: 1 amp Budesonide/Formoterol Fumarate (Symbicort 160/4.5mcg -) 2 puff IH BID [facility] Last Admin: 10/19/18 09:39 Dose: 2 puff Vancomycin HCl (Vancomycin 1 Gm Premix -) 1 gm in 200 mls @ 166.667 mls/hr IVPB Q12H [facility]; Protocol Last Admin: 10/19/18 11:45 Dose: 166.667 mls/hr Piperacillin Sod/Tazobactam (Sod 3.375 gm/ Dextrose) 50 mls @ 100 mls/hr IVPB Q8H-IV [facility]; Protocol Last Admin: 10/19/18 09:36 Dose: 100 mls/hr Oxycodone HCl (Roxicodone -) 10 mg PO Q4H PRN PRN Reason: PAIN LEVEL 6-10 Pantoprazole Sodium (Protonix Iv) 40 mg IVPUSH BID [facility] Last Admin: 10/19/18 09:37 Dose: 40 mg Tiotropium [place] (Spiriva Respimat) 2 puff IH DAILY [facility] Last Admin: 10/19/18 09:39 Dose: 2 puff - Objective Vital Signs: Vital Signs Temperature 98.7 F 10/19/18 06:00 Pulse Rate 85 10/19/18 06:00 Respiratory Rate 20 10/18/18 21:32 Blood Pressure 130/61 10/19/18 06:00 O2 Sat by Pulse Oximetry (%) 99 10/17/18 09:00 Constitutional: Yes: No Distress, Calm Eyes: Yes: Conjunctiva Clear HENT: Yes: Atraumatic Cardiovascular: Yes: Regular Rate and Rhythm Respiratory: Yes: Cough (productive), Diminished, On Nasal O2 Gastrointestinal: Yes: Normal Bowel Sounds, Soft Genitourinary: Yes: Incontinence Musculoskeletal: Yes: Muscle Weakness Extremities: Yes: WNL Edema: No Wound/Incision: Yes: Other (dressing noted with dry blood) Neurological: Yes: Alert, Oriented Psychiatric: Yes: Alert, Oriented Labs: CBC, BMP 10/19/18 05:10 10/19/18 05:10 INR, PTT INR 1.07 (0.83-1.09) 10/11/18 20:00 Microbiology 10/16/18 17:54 Leg - Right Lower Gram Stain - Final 10/16/18 17:54 Leg - Right Lower Wound Culture - Final NO GROWTH AFTER 48 HOURS INCUBATION 10/11/18 16:43 Leg - Left Lower Gram Stain - Final 10/11/18 16:43 Leg - Left Lower Wound Culture - Final Enterococcus Faecium Yeast Like Organism Problem List - Problems (1) Anemia Assessment/Plan: -Heme and GI on board -elev Retic and Haptoglobin -Hg 8.8 -monitor Hg and transfuse for Hg <8.0 -continue pantoprazole -M spike not observed Code(s): D64.9 - ANEMIA, UNSPECIFIED (2) COPD (chronic obstructive pulmonary disease) Assessment/Plan: -Symbicort + Spiriva -Bronchodilators -O2 via NC -keep SpO2 >90% -pulm on board -incentive spirometer QID Code(s): J44.9 - CHRONIC OBSTRUCTIVE PULMONARY DISEASE, UNSPECIFIED (3) Leg wound, left Assessment/Plan: -wound care as ordered -being followed by Dr Isabel -POD #3 s/p B/L lower extremity debridement -continue IV vanco and zosyn -pain management Code(s): S81.802A - UNSPECIFIED OPEN WOUND, LEFT LOWER LEG, INITIAL ENCOUNTER Qualifiers: Encounter type: initial encounter Qualified Code(s): S81.802A - Unspecified open wound, left lower leg, initial encounter (4) HTN (hypertension) Assessment/Plan: -low Na diet Code(s): I10 - ESSENTIAL (PRIMARY) HYPERTENSION Qualifiers: (5) Severe malnutrition Assessment/Plan: -dietary consult -daily weight -Ensure BID Code(s): E43 - UNSPECIFIED SEVERE PROTEIN-CALORIE MALNUTRITION (6) Cough Assessment/Plan: -Robitussin -incentive Spirometer -CXR Code(s): R05 - COUGH Assessment/Plan see problem list dvt ppx
[2018-10-19] MEDS ORDERED: guaiFENesin/CODEINE 5 ML UNIT-DOSE CUPS PO PRN (12:39)
--- NOTE | 2018-10-19 14:03 | PN ---
Physical Exam: SUBJECTIVE: Patient seen and examined at bedside. OBJECTIVE: Vital Signs Temperature 98.7 F 10/19/18 06:00 Pulse Rate 85 10/19/18 06:00 Respiratory Rate 20 10/18/18 21:32 Blood Pressure 130/61 10/19/18 06:00 O2 Sat by Pulse Oximetry (%) 99 10/17/18 09:00 GENERAL: The patient is awake, alert, and fully oriented, in no acute distress. ENT: Ears normal, nares patent NECK: Trachea midline, full range of motion LUNGS: Breath sounds equal, clear to auscultation bilaterally HEART: Regular rate and rhythm, S1, S2. ABDOMEN: Soft, nontender EXTREMITIES: B/L LE wrapped in jakob bandage and gauze to protect wound. NEUROLOGICAL: Normal speech, gait not observed. PSYCH: Normal mood. SKIN: Warm, dry. B/L LE wrapped in jakob bandage and gauze to protect wound. Laboratory Results - last 24 hr 10/19/18 10/19/18 05:10 05:10 WBC 7.9 RBC 2.64 L Hgb 8.8 L Hct 26.0 L MCV 98.6 H MCH 33.3 MCHC 33.8 RDW 15.4 Plt Count 274 MPV 7.7 Sodium 136 Potassium 4.6 Chloride 102 Carbon Dioxide 27 Anion Gap 6 L BUN 18 Creatinine 1.0 Creat Clearance w eGFR 53.91 Random Glucose 111 H Calcium 8.1 L Total Bilirubin 0.4 AST 26 ALT 13 Alkaline Phosphatase 58 Total Protein 5.2 L Albumin 2.0 L Active Medications Generic Name Dose Route Start Last Admin Trade Name Freq PRN Reason Stop Dose Admin Acetaminophen 650 mg 10/16/18 18:59 Tylenol - PO Q6H PRN FEVER Albuterol Sulfate 1 amp 10/16/18 18:59 10/19/18 08:23 Ventolin 0.083% Nebulizer Soln - NEB 1 amp Q4H PRN Administration SHORT OF BREATH/WHEEZING Budesonide/Formoterol Fumarate 2 puff 10/16/18 22:00 10/19/18 09:39 Symbicort 160/4.5mcg - IH 2 puff BID [facility] Administration Guaifenesin/Codeine Phosphate 5 ml 10/19/18 12:39 Robitussin Ac - PO TID PRN COUGH Vancomycin HCl 1 gm in 200 mls @ 166.667 mls/hr 10/16/18 23:30 10/19/18 11:45 Vancomycin 1 Gm Premix - IVPB 166.667 mls/hr Q12H [facility] Administration Protocol Piperacillin Sod/Tazobactam 50 mls @ 100 mls/hr 10/17/18 02:00 10/19/18 09:36 Sod 3.375 gm/ Dextrose IVPB 100 mls/hr Q8H-IV [facility] Administration Protocol Oxycodone HCl 10 mg 10/16/18 18:59 Roxicodone - PO Q4H PRN PAIN LEVEL 6-10 Pantoprazole Sodium 40 mg 10/16/18 22:00 10/19/18 09:37 Protonix Iv IVPUSH 40 mg BID [facility] Administration Tiotropium [place] 2 puff 10/17/18 10:00 10/19/18 09:39 Spiriva Respimat IH 2 puff DAILY [facility] Administration ASSESSMENT/PLAN: 78 y/o F w/PMH of COPD, CAD, hx of of breast ca (stage 1 s/p RT in 1999) who was admitted for LLE wound s/p fall from 1 week ago. Heme consulted for anemia. -Macrocytic anemia -s/p 1 unit PRBC on 10/12/18. Hgb has remained stable since. -Retic count 3.22 but corrected retic count is 2, mildly elevated. LD normal and haptoglobin not indicative of hemolysis. -Iron studies noted: high ferritin, low TIBC. B12 - 639. Folate - 21. -Anemia of chronic disease most likely etiology of anemia -B/L LE wounds -s/p I&D POD#3 Visit type - Emergency Visit Emergency Visit: Yes ED Registration Date: 10/11/18 Care time: The patient presented to the Emergency Department on the above date and was hospitalized for further evaluation of their emergent condition. - New Patient This patient is new to me today: No - Critical Care Critical Care patient: No
--- NOTE | 2018-10-19 14:33 | PN ---
Progress Note (short form) - Note Progress Note: PULMONARY Denies shortness of breath, cough or wheezing VSS Gen: NAD at rest Heart: RRR Lung: decreased breath sounds at the bases Abd: soft, nontender Ext: no edema MEDS/NOTES/IMAGES REVIEWED A/P s/p Fall LLE Wound/Ulcer Infection COPD LV Diastolic Dysfunction CAD Hyperlipidemia h/o Breast Ca - complete antibiotics per ID - wound care - inhaled bronchodilators - DVT prophylaxis Rukhsana SAUCEDO MD
--- NOTE | 2018-10-19 17:17 | PN ---
Progress Note (short form) - Note Progress Note: Patient post Op Skin grafting both legs Microbiology 10/11/18 16:43 Leg - Left Lower Gram Stain - Final 10/11/18 16:43 Leg - Left Lower Wound Culture - Final Enterococcus Faecium Yeast Like Organism Selected Entries 10/19/18 10/19/18 10:00 15:43 Temperature 98.5 F Pulse Rate 99 H 101 H Blood Pressure 130/67 Dressing Changed Right thigh donor area bloody, it is expected , no active bleeding, no pain Outer Tegaderm removed, Silvidine cream applied, dry 4x4, kurlex done, no odor, no active bleeding, no hematoma Left lower leg dressing changed, no odor, no erythema Inner dressing left intact New dressing with Silvidine done, followed by Shortylex and Gabrielle, No calf tenderness, patient BRP Dr Isabel 30 min
[2018-10-19] MEDS: AMINO ACIDS/PROTEIN HYDROLYS 30 ML LIQUID.PKT PO SCH (17:50)
[2018-10-20] MEDS ORDERED: DEXTROSE 5%-WATER - 50 ML IVPB ONE ×3 (02:43→16:17)
[2018-10-20] MEDS ORDERED: PIPERACILLIN/TAZOBACTAM 3.375 GM VIAL IVPB ONE ×3 (02:43→16:17)
[2018-10-20] MEDS: PIPERACILLIN/TAZOB 3.375 GM 3.375 GM in DEXTROSE 5%-WATER - 50 ML IVPB SCH ×3 (02:56→17:18)
[2018-10-20 08:41] LABS: HEMATOCRIT 23.3 % (32.4-45.2); HEMOGLOBIN 7.9 GM/dL (10.7-15.3); MCH 33.4 pg (25.7-33.7); MCHC 33.8 g/dl (32.0-36.0); MEAN CELL VOLUME 98.9 fl (80-96); MEAN PLT VOLUME 7.6 fl (7.5-11.1); PLATELET COUNT 241 K/MM3 (134-434); RBC 2.36 M/mm3 (3.60-5.2); RDW 15.3 % (11.6-15.6); WHITE BLOOD COUNT 7.1 K/mm3 (4.0-10.0)
[2018-10-20 09:17] LABS: ALK PHOS 55 U/L (45-117); ANION GAP 5 MMOL/L (8-16); BILIRUBIN,TOTAL 0.4 mg/dL (0.2-1); BLOOD UREA NITROGEN 22 mg/dL (7-18); CHLORIDE 102 mmol/L (98-107); CO2 28 mmol/L (21-32); CREATININE 0.9 mg/dL (0.55-1.3); GLUCOSE,RANDOM 105 mg/dL (74-106); SGOT/AST 26 U/L (15-37); SGPT/ALT 13 U/L (13-61); SODIUM 135 mmol/L (136-145); TOT PROT 4.8 g/dl (6.4-8.2)
[2018-10-20] MEDS: AMINO ACIDS/PROTEIN HYDROLYS 30 ML LIQUID.PKT PO SCH ×2 (10:02→17:18)
[2018-10-20] MEDS: PANTOPRAZOLE SODIUM 40 MG VIAL IVPUSH SCH ×2 (10:23→22:58)
[2018-10-20] MEDS: MULTIVITAMINS (DAILY MVI) TABLET (FP) PO SCH (10:23)
[2018-10-20] MEDS: VANCOMYCIN 1 GM PREMIX - 1 GM/200 ML BAG IVPB SCH ×2 (11:33→22:58)
[2018-10-20] MEDS: BUDESONIDE/FORMETEROL FUMARATE 160/4.5 mcg INHALER IH SCH ×2 (11:56→22:59)
[2018-10-20] MEDS: TIOTROPIUM BROMIDE 2.5 MCG (SPIRIVA) RESPIMAT INHALER IH SCH (11:57)
--- NOTE | 2018-10-20 13:04 | PN ---
Progress Note (short form) - Note Progress Note: PULMONARY Denies shortness of breath, cough or wheezing. c/o some leg pain. Vital Signs Period Temp Pulse Resp BP Sys/Prakash Pulse Ox Last 24 Hr 97.8 F-98.6 F 100-103 15-26 114-142/54-67 95 Gen: NAD at rest Heart: RRR Lung: decreased breath sounds at the bases Abd: soft, nontender Ext: no edema CBC, BMP 10/20/18 07:00 10/20/18 07:00 Active Medications Acetaminophen (Tylenol -) 650 mg PO Q6H PRN PRN Reason: FEVER Albuterol Sulfate (Ventolin 0.083% Nebulizer Soln -) 1 amp NEB Q4H PRN PRN Reason: SHORT OF BREATH/WHEEZING Last Admin: 10/19/18 08:23 Dose: 1 amp Amino Acids (Prosource No Carb Liquid Pkt) 30 ml PO BID@0800,1730 [facility] Last Admin: 10/20/18 10:02 Dose: 30 ml Budesonide/Formoterol Fumarate (Symbicort 160/4.5mcg -) 2 puff IH BID [facility] Last Admin: 10/20/18 11:56 Dose: 2 puff Guaifenesin/Codeine Phosphate (Robitussin Ac -) 5 ml PO TID PRN PRN Reason: COUGH Last Admin: 10/19/18 21:59 Dose: 5 ml Vancomycin HCl (Vancomycin 1 Gm Premix -) 1 gm in 200 mls @ 166.667 mls/hr IVPB Q12H [facility]; Protocol Last Admin: 10/20/18 11:33 Dose: 166.667 mls/hr Piperacillin Sod/Tazobactam (Sod 3.375 gm/ Dextrose) 50 mls @ 100 mls/hr IVPB Q8H-IV [facility]; Protocol Last Admin: 10/20/18 10:23 Dose: 100 mls/hr Multivitamins/Minerals/Vitamin C (Tab-A-Vit -) 1 tab PO DAILY [facility] Last Admin: 10/20/18 10:23 Dose: 1 tab Pantoprazole Sodium (Protonix Iv) 40 mg IVPUSH BID [facility] Last Admin: 10/20/18 10:23 Dose: 40 mg Tiotropium [place] (Spiriva Respimat) 2 puff IH DAILY [facility] Last Admin: 10/20/18 11:57 Dose: 2 puff A/P s/p Fall LLE Wound/Ulcer Infection COPD LV Diastolic Dysfunction CAD Hyperlipidemia h/o Breast Ca - complete antibiotics per ID - wound care - inhaled bronchodilators - DVT prophylaxis
--- NOTE | 2018-10-20 13:36 | PN ---
Progress Note, Physician Chief Complaint: Anemia Left leg wound - Current Medication List Current Medications: Active Medications Acetaminophen (Tylenol -) 650 mg PO Q6H PRN PRN Reason: FEVER Albuterol Sulfate (Ventolin 0.083% Nebulizer Soln -) 1 amp NEB Q4H PRN PRN Reason: SHORT OF BREATH/WHEEZING Last Admin: 10/19/18 08:23 Dose: 1 amp Amino Acids (Prosource No Carb Liquid Pkt) 30 ml PO BID@0800,1730 [facility] Last Admin: 10/20/18 10:02 Dose: 30 ml Budesonide/Formoterol Fumarate (Symbicort 160/4.5mcg -) 2 puff IH BID [facility] Last Admin: 10/20/18 11:56 Dose: 2 puff Guaifenesin/Codeine Phosphate (Robitussin Ac -) 5 ml PO TID PRN PRN Reason: COUGH Last Admin: 10/19/18 21:59 Dose: 5 ml Vancomycin HCl (Vancomycin 1 Gm Premix -) 1 gm in 200 mls @ 166.667 mls/hr IVPB Q12H [facility]; Protocol Last Admin: 10/20/18 11:33 Dose: 166.667 mls/hr Piperacillin Sod/Tazobactam (Sod 3.375 gm/ Dextrose) 50 mls @ 100 mls/hr IVPB Q8H-IV [facility]; Protocol Last Admin: 10/20/18 10:23 Dose: 100 mls/hr Multivitamins/Minerals/Vitamin C (Tab-A-Vit -) 1 tab PO DAILY [facility] Last Admin: 10/20/18 10:23 Dose: 1 tab Pantoprazole Sodium (Protonix Iv) 40 mg IVPUSH BID [facility] Last Admin: 10/20/18 10:23 Dose: 40 mg Tiotropium [place] (Spiriva Respimat) 2 puff IH DAILY [facility] Last Admin: 10/20/18 11:57 Dose: 2 puff - Objective Vital Signs: Vital Signs Temperature 97.8 F 10/20/18 08:40 Pulse Rate 103 H 10/20/18 08:40 Respiratory Rate 26 H 10/20/18 08:40 Blood Pressure 124/55 L 10/20/18 08:40 O2 Sat by Pulse Oximetry (%) 95 10/19/18 21:00 Constitutional: Yes: No Distress, Calm, Cachectic Cardiovascular: Yes: Regular Rate and Rhythm Respiratory: Yes: Regular Gastrointestinal: Yes: WNL Genitourinary: Yes: WNL Musculoskeletal: Yes: Muscle Weakness Extremities: Yes: WNL Edema: No Peripheral Pulses WNL: Yes Wound/Incision: Yes: Dressing Dry and Intact Neurological: Yes: Alert, Oriented Psychiatric: Yes: Alert, Oriented Labs: CBC, BMP 10/20/18 07:00 10/20/18 07:00 INR, PTT INR 1.07 (0.83-1.09) 10/11/18 20:00 Assessment/Plan (1) Anemia Assessment/Plan: -Heme and GI on board -elev Retic and Haptoglobin -monitor Hg and transfuse for Hg <7.0 to avoid fluid overload -continue pantoprazole -M spike not observed Code(s): D64.9 - ANEMIA, UNSPECIFIED (2) COPD (chronic obstructive pulmonary disease) Assessment/Plan: -Symbicort + Spiriva -Bronchodilators -O2 via NC -keep SpO2 >90% -pulm on board -incentive spirometer QID Code(s): J44.9 - CHRONIC OBSTRUCTIVE PULMONARY DISEASE, UNSPECIFIED (3) Leg wound, left Assessment/Plan: -wound culture: Microbiology 10/16/18 17:54 Leg - Right Lower Gram Stain - Final 10/16/18 17:54 Leg - Right Lower Wound Culture - Final NO GROWTH AFTER 48 HOURS INCUBATION 10/11/18 16:43 Leg - Left Lower Gram Stain - Final 10/11/18 16:43 Leg - Left Lower Wound Culture - Final Enterococcus Faecium Yeast Like Organism -ID on board -wound care as ordered -being followed by Dr Isabel -POD #3 s/p B/L lower extremity debridement -continue IV vanco and zosyn -pain management Code(s): S81.802A - UNSPECIFIED OPEN WOUND, LEFT LOWER LEG, INITIAL ENCOUNTER Qualifiers: Encounter type: initial encounter Qualified Code(s): S81.802A - Unspecified open wound, left lower leg, initial encounter (4) HTN (hypertension) Assessment/Plan: -low Na diet Code(s): I10 - ESSENTIAL (PRIMARY) HYPERTENSION Qualifiers: (5) Severe malnutrition Assessment/Plan: -dietary consult -multivitamin -Vit C and zinc -Ensure BID Code(s): E43 - UNSPECIFIED SEVERE PROTEIN-CALORIE MALNUTRITION (6) Cough Assessment/Plan: -Robitussin -incentive Spirometer -CXR yesterday unremarkable Code(s): R05 - COUGH Physical therapy-did well
[2018-10-20] MEDS: ZINC SULFATE 220 MG CAPSULE (FP) PO SCH (22:58)
[2018-10-20] MEDS: ASCORBIC ACID 500 MG TABLET (FP) PO SCH (22:58)
[2018-10-21] MEDS ORDERED: DEXTROSE 5%-WATER - 50 ML IVPB ONE ×3 (01:14→17:09)
[2018-10-21] MEDS ORDERED: PIPERACILLIN/TAZOBACTAM 3.375 GM VIAL IVPB ONE ×3 (01:14→17:09)
[2018-10-21] MEDS: PIPERACILLIN/TAZOB 3.375 GM 3.375 GM in DEXTROSE 5%-WATER - 50 ML IVPB SCH ×3 (01:26→17:25)
[2018-10-21 07:06] LABS: BASO % 0.8 % (0-2.0); HEMATOCRIT 25.9 % (32.4-45.2); HEMOGLOBIN 8.7 GM/dL (10.7-15.3); LYMPH % 27.3 % (8-40); MCH 33.3 pg (25.7-33.7); MCHC 33.6 g/dl (32.0-36.0); MEAN CELL VOLUME 98.9 fl (80-96); MEAN PLT VOLUME 7.5 fl (7.5-11.1); MONO % 13.1 % (3.8-10.2); NEUT % 58.8 % (42.8-82.8); PLATELET COUNT 275 K/MM3 (134-434); RBC 2.62 M/mm3 (3.60-5.2); WHITE BLOOD COUNT 8.6 K/mm3 (4.0-10.0)
[2018-10-21 07:35] LABS: ALBUMIN 2.2 g/dl (3.4-5.0); ALK PHOS 65 U/L (45-117); ANION GAP 8 MMOL/L (8-16); BILIRUBIN,TOTAL 0.5 mg/dL (0.2-1); BLOOD UREA NITROGEN 27 mg/dL (7-18); CALCIUM 7.9 mg/dL (8.5-10.1); CHLORIDE 103 mmol/L (98-107); CO2 26 mmol/L (21-32); CREATININE 1.1 mg/dL (0.55-1.3); GLUCOSE,RANDOM 101 mg/dL (74-106); POTASSIUM 4.1 mmol/L (3.5-5.1); SGOT/AST 27 U/L (15-37); SGPT/ALT 12 U/L (13-61); SODIUM 138 mmol/L (136-145); TOT PROT 5.4 g/dl (6.4-8.2)
[2018-10-21] MEDS: MULTIVITAMINS (DAILY MVI) TABLET (FP) PO SCH (09:14)
[2018-10-21] MEDS: PANTOPRAZOLE SODIUM 40 MG VIAL IVPUSH SCH ×2 (09:14→21:43)
[2018-10-21] MEDS: ZINC SULFATE 220 MG CAPSULE (FP) PO SCH ×2 (09:14→21:43)
[2018-10-21] MEDS: AMINO ACIDS/PROTEIN HYDROLYS 30 ML LIQUID.PKT PO SCH ×2 (09:14→17:25)
[2018-10-21] MEDS: ASCORBIC ACID 500 MG TABLET (FP) PO SCH ×2 (09:14→21:43)
[2018-10-21] MEDS: BUDESONIDE/FORMETEROL FUMARATE 160/4.5 mcg INHALER IH SCH ×2 (09:22→21:51)
[2018-10-21] MEDS: TIOTROPIUM BROMIDE 2.5 MCG (SPIRIVA) RESPIMAT INHALER IH SCH (09:22)
--- NOTE | 2018-10-21 10:18 | PN ---
Progress Note, Physician Chief Complaint: Anemia Left leg wound History of Present Illness: NAD in bed pain tolerable, doesn't want to take pain meds - Current Medication List Current Medications: Active Medications Acetaminophen (Tylenol -) 650 mg PO Q6H PRN PRN Reason: FEVER Albuterol Sulfate (Ventolin 0.083% Nebulizer Soln -) 1 amp NEB Q4H PRN PRN Reason: SHORT OF BREATH/WHEEZING Last Admin: 10/19/18 08:23 Dose: 1 amp Amino Acids (Prosource No Carb Liquid Pkt) 30 ml PO BID@0800,1730 [facility] Last Admin: 10/21/18 09:14 Dose: 30 ml Ascorbic Acid (Vitamin C -) 500 mg PO BID [facility] Last Admin: 10/21/18 09:14 Dose: 500 mg Budesonide/Formoterol Fumarate (Symbicort 160/4.5mcg -) 2 puff IH BID [facility] Last Admin: 10/21/18 09:22 Dose: 2 puff Guaifenesin/Codeine Phosphate (Robitussin Ac -) 5 ml PO TID PRN PRN Reason: COUGH Last Admin: 10/19/18 21:59 Dose: 5 ml Vancomycin HCl (Vancomycin 1 Gm Premix -) 1 gm in 200 mls @ 166.667 mls/hr IVPB Q12H [facility]; Protocol Last Admin: 10/20/18 22:58 Dose: 166.667 mls/hr Piperacillin Sod/Tazobactam (Sod 3.375 gm/ Dextrose) 50 mls @ 100 mls/hr IVPB Q8H-IV [facility]; Protocol Last Admin: 10/21/18 09:14 Dose: 100 mls/hr Multivitamins/Minerals/Vitamin C (Tab-A-Vit -) 1 tab PO DAILY [facility] Last Admin: 10/21/18 09:14 Dose: 1 tab Pantoprazole Sodium (Protonix Iv) 40 mg IVPUSH BID [facility] Last Admin: 10/21/18 09:14 Dose: 40 mg Tiotropium [place] (Spiriva Respimat) 2 puff IH DAILY [facility] Last Admin: 10/21/18 09:22 Dose: 2 puff Zinc Sulfate (Orazinc -) 220 mg PO BID [facility] Last Admin: 10/21/18 09:14 Dose: 220 mg - Objective Vital Signs: Vital Signs Temperature 97.8 F 10/21/18 08:15 Pulse Rate 80 10/21/18 08:15 Respiratory Rate 15 10/21/18 08:15 Blood Pressure 140/61 10/21/18 08:15 O2 Sat by Pulse Oximetry (%) 96 10/20/18 21:00 Constitutional: Yes: No Distress, Calm, Cachectic Cardiovascular: Yes: Regular Rate and Rhythm Respiratory: Yes: Regular Gastrointestinal: Yes: Normal Bowel Sounds, Soft Musculoskeletal: Yes: WNL Extremities: Yes: WNL Edema: No Peripheral Pulses WNL: Yes Wound/Incision: Yes: Dressing Dry and Intact Neurological: Yes: Alert, Oriented Psychiatric: Yes: Alert, Oriented Labs: CBC, BMP 10/21/18 06:00 10/21/18 06:00 INR, PTT INR 1.07 (0.83-1.09) 10/11/18 20:00 Assessment/Plan (1) Anemia Assessment/Plan: -Heme and GI on board -elev Retic and Haptoglobin -monitor Hg and transfuse for Hg <7.0 to avoid fluid overload -continue pantoprazole -M spike not observed Code(s): D64.9 - ANEMIA, UNSPECIFIED (2) COPD (chronic obstructive pulmonary disease) Assessment/Plan: -Symbicort + Spiriva -Bronchodilators -O2 via NC -keep SpO2 >90% -pulm on board -incentive spirometer QID Code(s): J44.9 - CHRONIC OBSTRUCTIVE PULMONARY DISEASE, UNSPECIFIED (3) Leg wound, left Assessment/Plan: -wound culture: Microbiology 10/16/18 17:54 Leg - Right Lower Gram Stain - Final 10/16/18 17:54 Leg - Right Lower Wound Culture - Final NO GROWTH AFTER 48 HOURS INCUBATION 10/11/18 16:43 Leg - Left Lower Gram Stain - Final 10/11/18 16:43 Leg - Left Lower Wound Culture - Final Enterococcus Faecium Yeast Like Organism -ID on board -wound care as ordered -being followed by Dr Isabel -POD #4 s/p B/L lower extremity debridement -continue IV vanco and zosyn -pain management Code(s): S81.802A - UNSPECIFIED OPEN WOUND, LEFT LOWER LEG, INITIAL ENCOUNTER Qualifiers: Encounter type: initial encounter Qualified Code(s): S81.802A - Unspecified open wound, left lower leg, initial encounter (4) HTN (hypertension) Assessment/Plan: -low Na diet Code(s): I10 - ESSENTIAL (PRIMARY) HYPERTENSION Qualifiers: (5) Severe malnutrition Assessment/Plan: -dietary consult -multivitamin -Vit C and zinc -Ensure BID Code(s): E43 - UNSPECIFIED SEVERE PROTEIN-CALORIE MALNUTRITION (6) Cough Assessment/Plan: -Robitussin -incentive Spirometer Code(s): R05 - COUGH Physical therapy-did well
--- NOTE | 2018-10-21 12:36 | PN ---
Progress Note (short form) - Note Progress Note: PULMONARY Denies shortness of breath, cough or wheezing. Vital Signs Period Temp Pulse Resp BP Sys/Prakash Pulse Ox Last 24 Hr 97.8 F-97.8 F 80-80 15-20 112-140/61-70 96-96 Gen: NAD at rest Heart: RRR Lung: decreased breath sounds at the bases Abd: soft, nontender Ext: no edema CBC, BMP 10/21/18 06:00 10/21/18 06:00 Active Medications Acetaminophen (Tylenol -) 650 mg PO Q6H PRN PRN Reason: FEVER Albuterol Sulfate (Ventolin 0.083% Nebulizer Soln -) 1 amp NEB Q4H PRN PRN Reason: SHORT OF BREATH/WHEEZING Last Admin: 10/19/18 08:23 Dose: 1 amp Amino Acids (Prosource No Carb Liquid Pkt) 30 ml PO BID@0800,1730 [facility] Last Admin: 10/21/18 09:14 Dose: 30 ml Ascorbic Acid (Vitamin C -) 500 mg PO BID [facility] Last Admin: 10/21/18 09:14 Dose: 500 mg Budesonide/Formoterol Fumarate (Symbicort 160/4.5mcg -) 2 puff IH BID [facility] Last Admin: 10/21/18 09:22 Dose: 2 puff Guaifenesin/Codeine Phosphate (Robitussin Ac -) 5 ml PO TID PRN PRN Reason: COUGH Last Admin: 10/19/18 21:59 Dose: 5 ml Vancomycin HCl (Vancomycin 1 Gm Premix -) 1 gm in 200 mls @ 166.667 mls/hr IVPB Q12H [facility]; Protocol Last Admin: 10/20/18 22:58 Dose: 166.667 mls/hr Piperacillin Sod/Tazobactam (Sod 3.375 gm/ Dextrose) 50 mls @ 100 mls/hr IVPB Q8H-IV [facility]; Protocol Last Admin: 10/21/18 09:14 Dose: 100 mls/hr Multivitamins/Minerals/Vitamin C (Tab-A-Vit -) 1 tab PO DAILY [facility] Last Admin: 10/21/18 09:14 Dose: 1 tab Pantoprazole Sodium (Protonix Iv) 40 mg IVPUSH BID [facility] Last Admin: 10/21/18 09:14 Dose: 40 mg Tiotropium [place] (Spiriva Respimat) 2 puff IH DAILY [facility] Last Admin: 10/21/18 09:22 Dose: 2 puff Zinc Sulfate (Orazinc -) 220 mg PO BID [facility] Last Admin: 10/21/18 09:14 Dose: 220 mg A/P s/p Fall LLE Wound/Ulcer Infection COPD LV Diastolic Dysfunction CAD Hyperlipidemia h/o Breast Ca - complete antibiotics per ID - wound care - inhaled bronchodilators - DVT prophylaxis
[2018-10-21] MEDS ORDERED: PT OWN MED DRAWER 7, Y5N ONE ×2 (12:47→23:16)
[2018-10-21] MEDS: VANCOMYCIN 1 GM PREMIX - 1 GM/200 ML BAG IVPB SCH ×2 (13:19→23:32)
[2018-10-22] MEDS ORDERED: PIPERACILLIN/TAZOBACTAM 3.375 GM VIAL IVPB ONE ×3 (01:43→17:19)
[2018-10-22] MEDS ORDERED: DEXTROSE 5%-WATER - 50 ML IVPB ONE ×3 (01:44→17:19)
[2018-10-22] MEDS: PIPERACILLIN/TAZOB 3.375 GM 3.375 GM in DEXTROSE 5%-WATER - 50 ML IVPB SCH ×3 (01:47→17:31)
[2018-10-22 07:12] LABS: HEMATOCRIT 23.2 % (32.4-45.2); HEMOGLOBIN 7.8 GM/dL (10.7-15.3); LYMPH % 19.7 % (8-40); MCH 33.4 pg (25.7-33.7); MCHC 33.8 g/dl (32.0-36.0); MEAN CELL VOLUME 98.9 fl (80-96); MEAN PLT VOLUME 7.5 fl (7.5-11.1); MONO % 12.5 % (3.8-10.2); NEUT % 66.8 % (42.8-82.8); PLATELET COUNT 263 K/MM3 (134-434); RBC 2.34 M/mm3 (3.60-5.2); WHITE BLOOD COUNT 7.7 K/mm3 (4.0-10.0)
[2018-10-22 07:43] LABS: ALBUMIN 1.9 g/dl (3.4-5.0); ALK PHOS 65 U/L (45-117); ANION GAP 7 MMOL/L (8-16); BILIRUBIN,TOTAL 0.4 mg/dL (0.2-1); BLOOD UREA NITROGEN 26 mg/dL (7-18); CHLORIDE 104 mmol/L (98-107); CO2 28 mmol/L (21-32); GLUCOSE,RANDOM 108 mg/dL (74-106); POTASSIUM 3.9 mmol/L (3.5-5.1); SGOT/AST 26 U/L (15-37); SGPT/ALT 13 U/L (13-61); SODIUM 139 mmol/L (136-145); TOT PROT 5.1 g/dl (6.4-8.2)
[2018-10-22] MEDS: AMINO ACIDS/PROTEIN HYDROLYS 30 ML LIQUID.PKT PO SCH ×2 (08:37→17:31)
[2018-10-22] MEDS ORDERED: PT OWN MED DRAWER 7, Y5N ONE ×2 (10:31→23:05)
[2018-10-22] MEDS: MULTIVITAMINS (DAILY MVI) TABLET (FP) PO SCH (10:37)
[2018-10-22] MEDS: ASCORBIC ACID 500 MG TABLET (FP) PO SCH ×2 (10:37→21:55)
[2018-10-22] MEDS: ZINC SULFATE 220 MG CAPSULE (FP) PO SCH ×2 (10:37→21:55)
[2018-10-22] MEDS: PANTOPRAZOLE SODIUM 40 MG VIAL IVPUSH SCH ×2 (10:40→21:55)
[2018-10-22] MEDS: TIOTROPIUM BROMIDE 2.5 MCG (SPIRIVA) RESPIMAT INHALER IH SCH (10:41)
[2018-10-22] MEDS: BUDESONIDE/FORMETEROL FUMARATE 160/4.5 mcg INHALER IH SCH ×2 (10:42→22:09)
--- NOTE | 2018-10-22 11:09 | PN ---
Progress Note (short form) - Note Progress Note: OOB to chair. Feels overall better. Denies shortness of breath, cough or wheezing. Intake & Output 10/19/18 10/20/18 10/21/18 10/22/18 23:59 23:59 23:59 23:59 Intake Total 1070 1369 974 400 Balance 1070 1369 974 400 Last Vital Signs Temp Pulse Resp BP Pulse Ox 98.2 F 89 20 151/69 96 10/22/18 09:19 10/22/18 09:19 10/22/18 09:19 10/22/18 09:19 10/21/18 09:00 Active Medications Acetaminophen (Tylenol -) 650 mg PO Q6H PRN PRN Reason: FEVER Amino Acids (Prosource No Carb Liquid Pkt) 30 ml PO BID@0800,1730 [facility] Last Admin: 10/22/18 08:37 Dose: 30 ml Ascorbic Acid (Vitamin C -) 500 mg PO BID [facility] Last Admin: 10/22/18 10:37 Dose: 500 mg Budesonide/Formoterol Fumarate (Symbicort 160/4.5mcg -) 2 puff IH BID [facility] Last Admin: 10/22/18 10:42 Dose: 2 puff Guaifenesin/Codeine Phosphate (Robitussin Ac -) 5 ml PO TID PRN PRN Reason: COUGH Last Admin: 10/19/18 21:59 Dose: 5 ml Vancomycin HCl (Vancomycin 1 Gm Premix -) 1 gm in 200 mls @ 166.667 mls/hr IVPB Q12H [facility]; Protocol Last Admin: 10/21/18 23:32 Dose: 166.667 mls/hr Piperacillin Sod/Tazobactam (Sod 3.375 gm/ Dextrose) 50 mls @ 100 mls/hr IVPB Q8H-IV [facility]; Protocol Last Admin: 10/22/18 10:43 Dose: 100 mls/hr Multivitamins/Minerals/Vitamin C (Tab-A-Vit -) 1 tab PO DAILY [facility] Last Admin: 10/22/18 10:37 Dose: 1 tab Pantoprazole Sodium (Protonix Iv) 40 mg IVPUSH BID [facility] Last Admin: 10/22/18 10:40 Dose: 40 mg Tiotropium [place] (Spiriva Respimat) 2 puff IH DAILY [facility] Last Admin: 10/22/18 10:41 Dose: 2 puff Zinc Sulfate (Orazinc -) 220 mg PO BID [facility] Last Admin: 10/22/18 10:37 Dose: 220 mg Gen: NAD at rest Heart: RRR Lung: decreased breath sounds at the bases Abd: soft, nontender Ext: no edema Laboratory Results - last 24 hr 10/22/18 10/22/18 06:30 06:30 WBC 7.7 RBC 2.34 L Hgb 7.8 L Hct 23.2 L MCV 98.9 H MCH 33.4 MCHC 33.8 RDW 15.0 Plt Count 263 MPV 7.5 Absolute Neuts (auto) 5.1 Neutrophils % 66.8 Lymphocytes % 19.7 D Monocytes % 12.5 H Eosinophils % 0.0 Basophils % 1.0 Nucleated RBC % 0 Sodium 139 Potassium 3.9 Chloride 104 Carbon Dioxide 28 Anion Gap 7 L BUN 26 H Creatinine 1.0 Creat Clearance w eGFR 53.91 Random Glucose 108 H Calcium 8.0 L Total Bilirubin 0.4 AST 26 ALT 13 Alkaline Phosphatase 65 Total Protein 5.1 L Albumin 1.9 L A/P s/p Fall LLE Wound/Ulcer Infection COPD LV Diastolic Dysfunction CAD Hyperlipidemia h/o Breast Ca - complete antibiotics per ID - wound care - inhaled bronchodilators - DVT prophylaxis - Plastic surgery follow up - No Pulmonary contraindication for D/C Dr Macedo
[2018-10-22] MEDS: VANCOMYCIN 1 GM PREMIX - 1 GM/200 ML BAG IVPB SCH ×2 (11:35→23:15)
--- NOTE | 2018-10-22 14:08 | PN ---
Progress Note, Physician Chief Complaint: Lower Extremity Wound Anemia History of Present Illness: Previous notes and events reviewed awake and alert NAD denies complaints of chest pain or SOB patient states cough is improving - Current Medication List Current Medications: Active Medications Acetaminophen (Tylenol -) 650 mg PO Q6H PRN PRN Reason: FEVER Amino Acids (Prosource No Carb Liquid Pkt) 30 ml PO BID@0800,1730 [facility] Last Admin: 10/22/18 08:37 Dose: 30 ml Ascorbic Acid (Vitamin C -) 500 mg PO BID [facility] Last Admin: 10/22/18 10:37 Dose: 500 mg Budesonide/Formoterol Fumarate (Symbicort 160/4.5mcg -) 2 puff IH BID [facility] Last Admin: 10/22/18 10:42 Dose: 2 puff Vancomycin HCl (Vancomycin 1 Gm Premix -) 1 gm in 200 mls @ 166.667 mls/hr IVPB Q12H [facility]; Protocol Last Admin: 10/22/18 11:35 Dose: 166.667 mls/hr Piperacillin Sod/Tazobactam (Sod 3.375 gm/ Dextrose) 50 mls @ 100 mls/hr IVPB Q8H-IV [facility]; Protocol Last Admin: 10/22/18 10:43 Dose: 100 mls/hr Multivitamins/Minerals/Vitamin C (Tab-A-Vit -) 1 tab PO DAILY [facility] Last Admin: 10/22/18 10:37 Dose: 1 tab Pantoprazole Sodium (Protonix Iv) 40 mg IVPUSH BID [facility] Last Admin: 10/22/18 10:40 Dose: 40 mg Tiotropium [place] (Spiriva Respimat) 2 puff IH DAILY [facility] Last Admin: 10/22/18 10:41 Dose: 2 puff Zinc Sulfate (Orazinc -) 220 mg PO BID [facility] Last Admin: 10/22/18 10:37 Dose: 220 mg - Objective Vital Signs: Vital Signs Temperature 98.2 F 10/22/18 09:19 Pulse Rate 89 10/22/18 09:19 Respiratory Rate 20 10/22/18 09:19 Blood Pressure 151/69 10/22/18 09:19 O2 Sat by Pulse Oximetry (%) 96 10/21/18 09:00 Constitutional: Yes: No Distress, Calm Eyes: Yes: Conjunctiva Clear HENT: Yes: Atraumatic Cardiovascular: Yes: Regular Rate and Rhythm Respiratory: Yes: Regular, CTA Bilaterally Gastrointestinal: Yes: Normal Bowel Sounds, Soft Genitourinary: Yes: Incontinence Musculoskeletal: Yes: Muscle Weakness Extremities: Yes: WNL Edema: No Neurological: Yes: Alert, Oriented Psychiatric: Yes: Alert, Oriented Labs: CBC, BMP 10/22/18 06:30 10/22/18 06:30 INR, PTT INR 1.07 (0.83-1.09) 10/11/18 20:00 Microbiology 10/16/18 17:54 Leg - Right Lower Gram Stain - Final 10/16/18 17:54 Leg - Right Lower Wound Culture - Final NO GROWTH AFTER 48 HOURS INCUBATION 10/11/18 16:43 Leg - Left Lower Gram Stain - Final 10/11/18 16:43 Leg - Left Lower Wound Culture - Final Enterococcus Faecium Yeast Like Organism Problem List - Problems (1) Anemia Assessment/Plan: -Heme and GI on board -elev Retic and Haptoglobin -Hg 7.8 -monitor Hg and transfuse for Hg <7.0 to avoid fluid overload -continue pantoprazole -M spike not observed Code(s): D64.9 - ANEMIA, UNSPECIFIED (2) COPD (chronic obstructive pulmonary disease) Assessment/Plan: -Symbicort + Spiriva -Bronchodilators -O2 via NC -keep SpO2 >90% -pulm on board -incentive spirometer QID Code(s): J44.9 - CHRONIC OBSTRUCTIVE PULMONARY DISEASE, UNSPECIFIED (3) Leg wound, left Assessment/Plan: -wound care as ordered -being followed by Dr Isabel -POD #5 s/p B/L lower extremity debridement -continue IV vanco and zosyn -pain management Code(s): S81.802A - UNSPECIFIED OPEN WOUND, LEFT LOWER LEG, INITIAL ENCOUNTER Qualifiers: Encounter type: initial encounter Qualified Code(s): S81.802A - Unspecified open wound, left lower leg, initial encounter (4) HTN (hypertension) Assessment/Plan: -low Na diet Code(s): I10 - ESSENTIAL (PRIMARY) HYPERTENSION Qualifiers: (5) Severe malnutrition Assessment/Plan: -dietary consult -daily weight -Ensure BID -Multivitamin and Vitamin C daily Code(s): E43 - UNSPECIFIED SEVERE PROTEIN-CALORIE MALNUTRITION (6) Cough Assessment/Plan: -Robitussin -incentive Spirometer Code(s): R05 - COUGH Assessment/Plan see problem list dvt ppx
[2018-10-22] MEDS ORDERED: guaiFENesin/CODEINE 5 ML UNIT-DOSE CUPS PO PRN (20:08)
[2018-10-23] MEDS ORDERED: PIPERACILLIN/TAZOBACTAM 3.375 GM VIAL IVPB ONE ×3 (01:56→17:19)
[2018-10-23] MEDS ORDERED: DEXTROSE 5%-WATER - 50 ML IVPB ONE ×3 (01:57→17:19)
[2018-10-23] MEDS: PIPERACILLIN/TAZOB 3.375 GM 3.375 GM in DEXTROSE 5%-WATER - 50 ML IVPB SCH ×3 (02:05→17:26)
[2018-10-23 07:16] LABS: BASO % 0.6 % (0-2.0); HEMATOCRIT 23.2 % (32.4-45.2); HEMOGLOBIN 8.2 GM/dL (10.7-15.3); LYMPH % 24.9 % (8-40); MCH 34.7 pg (25.7-33.7); MCHC 35.2 g/dl (32.0-36.0); MEAN CELL VOLUME 98.4 fl (80-96); MEAN PLT VOLUME 7.4 fl (7.5-11.1); NEUT % 64.5 % (42.8-82.8); PLATELET COUNT 293 K/MM3 (134-434); RBC 2.36 M/mm3 (3.60-5.2); RDW 14.9 % (11.6-15.6); WHITE BLOOD COUNT 7.4 K/mm3 (4.0-10.0)
[2018-10-23 07:21] LABS: ALBUMIN 1.9 g/dl (3.4-5.0); ALK PHOS 71 U/L (45-117); ANION GAP 8 MMOL/L (8-16); BILIRUBIN,TOTAL 0.4 mg/dL (0.2-1); BLOOD UREA NITROGEN 26 mg/dL (7-18); CALCIUM 7.8 mg/dL (8.5-10.1); CHLORIDE 104 mmol/L (98-107); CO2 26 mmol/L (21-32); GLUCOSE,RANDOM 104 mg/dL (74-106); POTASSIUM 3.6 mmol/L (3.5-5.1); SGOT/AST 24 U/L (15-37); SGPT/ALT 13 U/L (13-61); SODIUM 138 mmol/L (136-145); TOT PROT 5.6 g/dl (6.4-8.2)
--- NOTE | 2018-10-23 10:32 | PN ---
Progress Note, Physician Chief Complaint: Anemia Left leg wound History of Present Illness: NAD in bed pain tolerable, doesn't want to take pain meds Still on IV Vanco and Zosyn - Current Medication List Current Medications: Active Medications Acetaminophen (Tylenol -) 650 mg PO Q6H PRN PRN Reason: FEVER Amino Acids (Prosource No Carb Liquid Pkt) 30 ml PO BID@0800,1730 [facility] Last Admin: 10/22/18 17:31 Dose: 30 ml Ascorbic Acid (Vitamin C -) 500 mg PO BID [facility] Last Admin: 10/22/18 21:55 Dose: 500 mg Budesonide/Formoterol Fumarate (Symbicort 160/4.5mcg -) 2 puff IH BID [facility] Last Admin: 10/22/18 22:09 Dose: Not Given Guaifenesin/Codeine Phosphate (Robitussin Ac -) 5 ml PO Q8H PRN PRN Reason: COUGH Vancomycin HCl (Vancomycin 1 Gm Premix -) 1 gm in 200 mls @ 166.667 mls/hr IVPB Q12H [facility]; Protocol Last Admin: 10/22/18 23:15 Dose: 166.667 mls/hr Piperacillin Sod/Tazobactam (Sod 3.375 gm/ Dextrose) 50 mls @ 100 mls/hr IVPB Q8H-IV [facility]; Protocol Last Admin: 10/23/18 02:05 Dose: 100 mls/hr Multivitamins/Minerals/Vitamin C (Tab-A-Vit -) 1 tab PO DAILY [facility] Last Admin: 10/22/18 10:37 Dose: 1 tab Pantoprazole Sodium (Protonix Iv) 40 mg IVPUSH BID [facility] Last Admin: 10/22/18 21:55 Dose: 40 mg Tiotropium [place] (Spiriva Respimat) 2 puff IH DAILY [facility] Last Admin: 10/22/18 10:41 Dose: 2 puff Zinc Sulfate (Orazinc -) 220 mg PO BID [facility] Last Admin: 10/22/18 21:55 Dose: 220 mg - Objective Vital Signs: Vital Signs Temperature 97.8 F 10/23/18 10:00 Pulse Rate 96 H 10/23/18 10:00 Respiratory Rate 22 H 10/23/18 10:00 Blood Pressure 148/69 10/23/18 10:00 O2 Sat by Pulse Oximetry (%) 96 10/21/18 09:00 Constitutional: Yes: No Distress, Calm, Cachectic Cardiovascular: Yes: Regular Rate and Rhythm Respiratory: Yes: Regular Gastrointestinal: Yes: WNL Genitourinary: Yes: WNL Musculoskeletal: Yes: WNL Extremities: Yes: WNL Edema: No Peripheral Pulses WNL: Yes Wound/Incision: Yes: Dressing Dry and Intact Neurological: Yes: Alert, Oriented Psychiatric: Yes: Alert, Oriented Labs: CBC, BMP 10/23/18 06:20 10/23/18 06:20 INR, PTT INR 1.07 (0.83-1.09) 10/11/18 20:00 Assessment/Plan (1) Anemia Assessment/Plan: -Heme and GI on board -elev Retic and Haptoglobin -monitor Hg and transfuse for Hg <7.0 to avoid fluid overload -continue pantoprazole -M spike not observed Code(s): D64.9 - ANEMIA, UNSPECIFIED (2) COPD (chronic obstructive pulmonary disease) Assessment/Plan: -Symbicort + Spiriva -Bronchodilators -O2 via NC -keep SpO2 >90% -pulm on board -incentive spirometer QID Code(s): J44.9 - CHRONIC OBSTRUCTIVE PULMONARY DISEASE, UNSPECIFIED (3) Leg wound, left Assessment/Plan: -wound culture: Microbiology 10/16/18 17:54 Leg - Right Lower Gram Stain - Final 10/16/18 17:54 Leg - Right Lower Wound Culture - Final NO GROWTH AFTER 48 HOURS INCUBATION 10/11/18 16:43 Leg - Left Lower Gram Stain - Final 10/11/18 16:43 Leg - Left Lower Wound Culture - Final Enterococcus Faecium Yeast Like Organism -ID on board -wound care as ordered -being followed by Dr Isabel -post Op Skin grafting both legs from donor site right thigh -Still on IV vanco and zosyn -pain management Code(s): S81.802A - UNSPECIFIED OPEN WOUND, LEFT LOWER LEG, INITIAL ENCOUNTER Qualifiers: Encounter type: initial encounter Qualified Code(s): S81.802A - Unspecified open wound, left lower leg, initial encounter (4) HTN (hypertension) Assessment/Plan: -low Na diet Code(s): I10 - ESSENTIAL (PRIMARY) HYPERTENSION Qualifiers: (5) Severe malnutrition Assessment/Plan: -dietary consult -multivitamin -Vit C and zinc -Ensure BID Code(s): E43 - UNSPECIFIED SEVERE PROTEIN-CALORIE MALNUTRITION (6) Cough Assessment/Plan: -Robitussin -incentive Spirometer -Pulmonary on board Code(s): R05 - COUGH Physical therapy-did well
[2018-10-23] MEDS: BUDESONIDE/FORMETEROL FUMARATE 160/4.5 mcg INHALER IH SCH ×2 (10:54→21:36)
[2018-10-23] MEDS: ZINC SULFATE 220 MG CAPSULE (FP) PO SCH ×2 (10:54→21:32)
[2018-10-23] MEDS: AMINO ACIDS/PROTEIN HYDROLYS 30 ML LIQUID.PKT PO SCH ×2 (10:54→17:25)
[2018-10-23] MEDS: PANTOPRAZOLE SODIUM 40 MG VIAL IVPUSH SCH ×2 (10:54→21:32)
[2018-10-23] MEDS: TIOTROPIUM BROMIDE 2.5 MCG (SPIRIVA) RESPIMAT INHALER IH SCH (10:54)
[2018-10-23] MEDS: ASCORBIC ACID 500 MG TABLET (FP) PO SCH ×2 (10:55→21:32)
[2018-10-23] MEDS: MULTIVITAMINS (DAILY MVI) TABLET (FP) PO SCH (10:55)
--- NOTE | 2018-10-23 11:40 | PN ---
Progress Note (short form) - Note Progress Note: Feels overall better. Denies shortness of breath, cough or wheezing. Intake & Output 10/20/18 10/21/18 10/22/18 10/23/18 23:59 23:59 23:59 23:59 Intake Total 5460 464 1187 1450 Balance 4683 671 1996 1450 Last Vital Signs Temp Pulse Resp BP Pulse Ox 97.8 F 96 H 22 H 148/69 96 10/23/18 10:00 10/23/18 10:00 10/23/18 10:00 10/23/18 10:00 10/21/18 09:00 Active Medications Acetaminophen (Tylenol -) 650 mg PO Q6H PRN PRN Reason: FEVER Amino Acids (Prosource No Carb Liquid Pkt) 30 ml PO BID@0800,1730 [facility] Last Admin: 10/23/18 10:54 Dose: 30 ml Ascorbic Acid (Vitamin C -) 500 mg PO BID [facility] Last Admin: 10/23/18 10:55 Dose: 500 mg Budesonide/Formoterol Fumarate (Symbicort 160/4.5mcg -) 2 puff IH BID [facility] Last Admin: 10/23/18 10:54 Dose: 2 puff Guaifenesin/Codeine Phosphate (Robitussin Ac -) 5 ml PO Q8H PRN PRN Reason: COUGH Vancomycin HCl (Vancomycin 1 Gm Premix -) 1 gm in 200 mls @ 166.667 mls/hr IVPB Q12H [facility]; Protocol Last Admin: 10/22/18 23:15 Dose: 166.667 mls/hr Piperacillin Sod/Tazobactam (Sod 3.375 gm/ Dextrose) 50 mls @ 100 mls/hr IVPB Q8H-IV [facility]; Protocol Last Admin: 10/23/18 10:55 Dose: 100 mls/hr Multivitamins/Minerals/Vitamin C (Tab-A-Vit -) 1 tab PO DAILY [facility] Last Admin: 10/23/18 10:55 Dose: 1 tab Pantoprazole Sodium (Protonix Iv) 40 mg IVPUSH BID [facility] Last Admin: 10/23/18 10:54 Dose: 40 mg Tiotropium [place] (Spiriva Respimat) 2 puff IH DAILY [facility] Last Admin: 10/23/18 10:54 Dose: 2 puff Zinc Sulfate (Orazinc -) 220 mg PO BID [facility] Last Admin: 10/23/18 10:54 Dose: 220 mg Gen: NAD at rest Heart: RRR Lung: decreased breath sounds at the bases Abd: soft, nontender Ext: no edema Laboratory Results - last 24 hr 10/23/18 10/23/18 06:20 06:20 WBC 7.4 RBC 2.36 L Hgb 8.2 L Hct 23.2 L MCV 98.4 H MCH 34.7 H MCHC 35.2 RDW 14.9 Plt Count 293 MPV 7.4 L Absolute Neuts (auto) 4.8 Neutrophils % 64.5 Lymphocytes % 24.9 D Monocytes % 10.0 Eosinophils % 0.0 Basophils % 0.6 Nucleated RBC % 0 Sodium 138 Potassium 3.6 Chloride 104 Carbon Dioxide 26 Anion Gap 8 BUN 26 H Creatinine 1.0 Creat Clearance w eGFR 53.91 Random Glucose 104 Calcium 7.8 L Total Bilirubin 0.4 AST 24 ALT 13 Alkaline Phosphatase 71 Total Protein 5.6 L Albumin 1.9 L A/P s/p Fall LLE Wound/Ulcer Infection COPD LV Diastolic Dysfunction CAD Hyperlipidemia h/o Breast Ca - complete antibiotics per ID - wound care - inhaled bronchodilators - DVT prophylaxis - Wound care per Plastic surgery - No Pulmonary contraindication for D/C planning Dr Macedo
[2018-10-23] MEDS: VANCOMYCIN 1 GM PREMIX - 1 GM/200 ML BAG IVPB SCH (12:17)
[2018-10-24] MEDS ORDERED: PIPERACILLIN/TAZOB 3.375 GM 3.375 GM in DEXTROSE 5%-WATER - 50 ML IVPB ONE (01:20)
[2018-10-24] MEDS ORDERED: DEXTROSE 5%-WATER - 50 ML IVPB ONE (03:03)
[2018-10-24] MEDS ORDERED: PIPERACILLIN/TAZOBACTAM 3.375 GM VIAL IVPB ONE (03:03)
[2018-10-24 06:36] LABS: BASO % 1.1 % (0-2.0); HEMATOCRIT 23.5 % (32.4-45.2); HEMOGLOBIN 8.1 GM/dL (10.7-15.3); LYMPH % 20.2 % (8-40); MCH 34.3 pg (25.7-33.7); MCHC 34.4 g/dl (32.0-36.0); MEAN CELL VOLUME 99.6 fl (80-96); MEAN PLT VOLUME 7.2 fl (7.5-11.1); MONO % 11.4 % (3.8-10.2); NEUT % 67.3 % (42.8-82.8); PLATELET COUNT 315 K/MM3 (134-434); RBC 2.36 M/mm3 (3.60-5.2); RDW 14.8 % (11.6-15.6); WHITE BLOOD COUNT 7.1 K/mm3 (4.0-10.0)
[2018-10-24 07:03] LABS: ALBUMIN 1.8 g/dl (3.4-5.0); ALK PHOS 68 U/L (45-117); ANION GAP 5 MMOL/L (8-16); BILIRUBIN,TOTAL 0.4 mg/dL (0.2-1); BLOOD UREA NITROGEN 23 mg/dL (7-18); CALCIUM 8.1 mg/dL (8.5-10.1); CHLORIDE 106 mmol/L (98-107); CO2 27 mmol/L (21-32); GLUCOSE,RANDOM 101 mg/dL (74-106); SGOT/AST 22 U/L (15-37); SGPT/ALT 13 U/L (13-61); SODIUM 138 mmol/L (136-145); TOT PROT 5.5 g/dl (6.4-8.2)
[2018-10-24 09:02] VITALS: BP 146/67; PULSE 79
--- NOTE | 2018-10-24 10:39 | PN ---
Progress Note, Physician Chief Complaint: Anemia Left leg wound History of Present Illness: NAD in bed pain tolerable, doesn't want to take pain meds Still on IV Vanco and Zosyn - Current Medication List Current Medications: Active Medications Acetaminophen (Tylenol -) 650 mg PO Q6H PRN PRN Reason: FEVER Amino Acids (Prosource No Carb Liquid Pkt) 30 ml PO BID@0800,1730 [facility] Last Admin: 10/23/18 17:25 Dose: 30 ml Ascorbic Acid (Vitamin C -) 500 mg PO BID [facility] Last Admin: 10/23/18 21:32 Dose: 500 mg Budesonide/Formoterol Fumarate (Symbicort 160/4.5mcg -) 2 puff IH BID [facility] Last Admin: 10/23/18 21:36 Dose: 2 puff Guaifenesin/Codeine Phosphate (Robitussin Ac -) 5 ml PO Q8H PRN PRN Reason: COUGH Multivitamins/Minerals/Vitamin C (Tab-A-Vit -) 1 tab PO DAILY [facility] Last Admin: 10/23/18 10:55 Dose: 1 tab Pantoprazole Sodium (Protonix Iv) 40 mg IVPUSH BID [facility] Last Admin: 10/23/18 21:32 Dose: 40 mg Tiotropium [place] (Spiriva Respimat) 2 puff IH DAILY [facility] Last Admin: 10/23/18 10:54 Dose: 2 puff Zinc Sulfate (Orazinc -) 220 mg PO BID [facility] Last Admin: 10/23/18 21:32 Dose: 220 mg - Objective Vital Signs: Vital Signs Temperature 98 F 10/24/18 05:31 Pulse Rate 79 10/24/18 09:01 Respiratory Rate 22 H 10/24/18 09:01 Blood Pressure 146/67 10/24/18 09:01 O2 Sat by Pulse Oximetry (%) 95 10/23/18 20:34 Constitutional: Yes: Well Nourished, No Distress, Calm Cardiovascular: Yes: Regular Rate and Rhythm Respiratory: Yes: Regular Gastrointestinal: Yes: Normal Bowel Sounds, Soft Musculoskeletal: Yes: WNL Extremities: Yes: WNL Edema: No Peripheral Pulses WNL: Yes Wound/Incision: Yes: Dressing Dry and Intact Neurological: Yes: Alert, Oriented Psychiatric: Yes: Alert, Oriented Labs: CBC, BMP 10/24/18 06:00 10/24/18 06:00 INR, PTT INR 1.07 (0.83-1.09) 10/11/18 20:00 Assessment/Plan (1) Anemia Assessment/Plan: -Heme and GI on board -elev Retic and Haptoglobin -monitor Hg and transfuse for Hg <7.0 to avoid fluid overload -continue pantoprazole -M spike not observed Code(s): D64.9 - ANEMIA, UNSPECIFIED (2) COPD (chronic obstructive pulmonary disease) Assessment/Plan: -Symbicort + Spiriva -Bronchodilators -O2 via NC -keep SpO2 >90% -pulm on board -incentive spirometer QID Code(s): J44.9 - CHRONIC OBSTRUCTIVE PULMONARY DISEASE, UNSPECIFIED (3) Leg wound, left Assessment/Plan: -wound culture: Microbiology 10/16/18 17:54 Leg - Right Lower Gram Stain - Final 10/16/18 17:54 Leg - Right Lower Wound Culture - Final NO GROWTH AFTER 48 HOURS INCUBATION 10/11/18 16:43 Leg - Left Lower Gram Stain - Final 10/11/18 16:43 Leg - Left Lower Wound Culture - Final Enterococcus Faecium Yeast Like Organism -ID on board -wound care as ordered -being followed by Dr Isabel -post Op Skin grafting both legs from donor site right thigh -Still on IV vanco and zosyn -pain management Code(s): S81.802A - UNSPECIFIED OPEN WOUND, LEFT LOWER LEG, INITIAL ENCOUNTER Qualifiers: Encounter type: initial encounter Qualified Code(s): S81.802A - Unspecified open wound, left lower leg, initial encounter (4) HTN (hypertension) Assessment/Plan: -low Na diet Code(s): I10 - ESSENTIAL (PRIMARY) HYPERTENSION Qualifiers: (5) Severe malnutrition Assessment/Plan: -dietary consult -multivitamin -Vit C and zinc -Ensure BID Code(s): E43 - UNSPECIFIED SEVERE PROTEIN-CALORIE MALNUTRITION (6) Cough Assessment/Plan: -Robitussin -incentive Spirometer -Pulmonary on board Code(s): R05 - COUGH Physical therapy-did well
[2018-10-24] MEDS: PANTOPRAZOLE SODIUM 40 MG VIAL IVPUSH SCH (11:27)
[2018-10-24] MEDS: TIOTROPIUM BROMIDE 2.5 MCG (SPIRIVA) RESPIMAT INHALER IH SCH (11:27)
[2018-10-24] MEDS: AMINO ACIDS/PROTEIN HYDROLYS 30 ML LIQUID.PKT PO SCH (11:27)
[2018-10-24] MEDS: ZINC SULFATE 220 MG CAPSULE (FP) PO SCH (11:27)
[2018-10-24] MEDS: BUDESONIDE/FORMETEROL FUMARATE 160/4.5 mcg INHALER IH SCH (11:27)
[2018-10-24] MEDS: MULTIVITAMINS (DAILY MVI) TABLET (FP) PO SCH (11:28)
[2018-10-24] MEDS: ASCORBIC ACID 500 MG TABLET (FP) PO SCH (11:28)
--- NOTE | 2018-10-24 12:29 | PN ---
Progress Note (short form) - Note Progress Note: PULMONARY Denies shortness of breath, cough or wheezing. Vital Signs Period Temp Pulse Resp BP Sys/Prakash Pulse Ox Last 24 Hr 97.9 F-98.9 F 79-94 20-22 132-146/60-67 95 Gen: NAD at rest Heart: RRR Lung: decreased breath sounds at the bases Abd: soft, nontender Ext: no edema CBC, BMP 10/24/18 06:00 10/24/18 06:00 Active Medications Acetaminophen (Tylenol -) 650 mg PO Q6H PRN PRN Reason: FEVER Amino Acids (Prosource No Carb Liquid Pkt) 30 ml PO BID@0800,1730 [facility] [place] Last Admin: 10/24/18 11:27 Dose: 30 ml Ascorbic Acid (Vitamin C -) 500 mg PO BID [facility] [facility] Last Admin: 10/24/18 11:28 Dose: 500 mg Budesonide/Formoterol Fumarate (Symbicort 160/4.5mcg -) 2 puff IH BID [facility] [place] Last Admin: 10/24/18 11:27 Dose: 2 puff Guaifenesin/Codeine Phosphate (Robitussin Ac -) 5 ml PO Q8H PRN PRN Reason: COUGH Multivitamins/Minerals/Vitamin C (Tab-A-Vit -) 1 tab PO DAILY [facility] [place] Last Admin: 10/24/18 11:28 Dose: 1 tab Pantoprazole Sodium (Protonix Iv) 40 mg IVPUSH BID [facility] Last Admin: 10/24/18 11:27 Dose: 40 mg Tiotropium [place] (Spiriva Respimat) 2 puff IH DAILY [facility] [place] Last Admin: 10/24/18 11:27 Dose: 2 puff Zinc Sulfate (Orazinc -) 220 mg PO BID [facility] Last Admin: 10/24/18 11:27 Dose: 220 mg A/P s/p Fall LLE Wound/Ulcer Infection COPD LV Diastolic Dysfunction CAD Hyperlipidemia h/o Breast Ca - complete antibiotics per ID - wound care - inhaled bronchodilators - DVT prophylaxis - d/c planning
[2018-10-24 12:32] VITALS: TEMP 97.5
== END 2018-10-24 13:24 | disposition home or self-care (01) | DRG 576 ==
LOC: JERFT 12:48 → JER 12:48 → J6S 15:10
PROVIDERS: ADMIT Family Medicine; ATTEND Family Medicine
PROC: 30233N1 Transfusion of Nonautologous Red Blood Cells into Peripheral Vein, Percutaneous Approach (ICD-10-PCS; 2018-10-11)
PROC: 0HRKX74 Replacement of Right Lower Leg Skin with Autologous Tissue Substitute, Partial Thickness, External Approach (ICD-10-PCS; 2018-10-16)
PROC: 0JDP0ZZ Extraction of Left Lower Leg Subcutaneous Tissue and Fascia, Open Approach (ICD-10-PCS; 2018-10-16)
PROC: 0JDN0ZZ Extraction of Right Lower Leg Subcutaneous Tissue and Fascia, Open Approach (ICD-10-PCS; 2018-10-16)
PROC: 0HBHXZZ Excision of Right Upper Leg Skin, External Approach (ICD-10-PCS; 2018-10-16)
PROC: 0HDLXZZ Extraction of Left Lower Leg Skin, External Approach (ICD-10-PCS; 2018-10-16)
PROC: 0HRLX74 Replacement of Left Lower Leg Skin with Autologous Tissue Substitute, Partial Thickness, External Approach (ICD-10-PCS; principal; 2018-10-16 16:00)
DX: S81.812A Laceration without foreign body, left lower leg, initial encounter (principal); E43 Unspecified severe protein-calorie malnutrition; Z68.1 Body mass index [BMI] 19.9 or less, adult; I47.1 Supraventricular tachycardia; R64 Cachexia; I10 Essential (primary) hypertension; D53.9 Nutritional anemia, unspecified; J44.9 Chronic obstructive pulmonary disease, unspecified; I25.10 Atherosclerotic heart disease of native coronary artery without angina pectoris; Z85.3 Personal history of malignant neoplasm of breast; E78.5 Hyperlipidemia, unspecified; Z95.5 Presence of coronary angioplasty implant and graft; Z96.643 Presence of artificial hip joint, bilateral; Z87.891 Personal history of nicotine dependence; W10.8XXA Fall (on) (from) other stairs and steps, initial encounter; Y92.018 Other place in single-family (private) house as the place of occurrence of the external cause; Y99.8 Other external cause status; R05 Cough; B95.2 Enterococcus as the cause of diseases classified elsewhere; B37.2 Candidiasis of skin and nail
CPT/HCPCS: 36415; 36430; 36511; 71045-TC-FY; 80048; 80053; 81003; 82607; 82728; 82746; 83010; 83540; 83550; 83615; 83735; 84155; 84165; 84443; 85025; 85027; 85044; 85610; 85730; 86850; 86880; 86900; 86901; 86922; 87070; 87077; 87086; 87186; 87205; 88304-TC; 94640; 94760; 97116-GP; 97161-GP; 99282-25; G0463-25; J1644; P9038; P9058

== ENCOUNTER 2019-02-18 07:12 | Day surgery (SDC) | payer OTHER, MEDICARE ==
[2019-02-15 13:23] VITALS: BMI 19.5
--- NOTE | 2019-02-18 09:20 | HP ---
History & Physical Update - History History: No Change - Physical Physical: No Change - Assessment Assessment: No Change - Plan Plan: No Change
[2019-02-18] MEDS ORDERED: PROPOFOL 20 ML ONE ×2 (09:26→10:08)
[2019-02-18] MEDS ORDERED: MIDAZOLAM HCL 2 MG/2 ML SINGLE DOSE VIAL ONE (09:26)
[2019-02-18] MEDS ORDERED: ROCURONIUM BROMIDE 50 MG/5 ML SYRINGE ONE (09:27)
[2019-02-18] MEDS ORDERED: DEXAMETHASONE SOD PHOSPHATE 4 MG/1 ML VIAL ONE (10:09)
[2019-02-18] MEDS ORDERED: KETOROLAC TROMETHAMINE 30 MG/1 ML VIAL ONE (10:09)
[2019-02-18] MEDS ORDERED: ceFAZolin SODIUM 1 GM VIAL IVPB ONE (10:10)
[2019-02-18] MEDS ORDERED: BUPIVACAINE HCL/PF 0.5% (5 MG/ML) 30 ML VIAL IJ ONE (10:20)
[2019-02-18] MEDS ORDERED: PROMETHAZINE HCL 25 MG/1 ML VIAL IVPB PRN (10:35)
--- NOTE | 2019-02-18 10:38 | OP ---
Operative Note - Note: Operative Date: 02/18/19 Pre-Operative Diagnosis: Subcutaneous cystic mass in right mons pubis Operation: Excision of the subcutaneous mass Findings: 3 x 2cm subcutaneous cystic mass in right mons pubis, containing sebaceous material. Post-Operative Diagnosis: Same as Pre-op Surgeon: Esvin Lewis Anesthesiologist/PUBLIC HEALTH ENGINEER: Neal Munoz Anesthesia: General, Local Specimens Removed: Subcutaneous cyst with sebaceous contants Estimated Blood Loss (mls): 1 Blood Volume Replaced (mls): 0 Fluid Volume Replaced (mls): 600 Operative Report Dictated: Yes
[2019-02-18] MEDS ORDERED: LACTATED RINGERS SOLUTION 1,000 ML IV SCH (10:45)
[2019-02-18 12:08] VITALS: PULSE 70; TEMP 98
[2019-02-18 13:54] VITALS: BP 136/66
--- NOTE | 2019-02-18 14:33 | OP ---
DATE OF OPERATION: 02/18/2019 PREOPERATIVE DIAGNOSIS: Subcutaneous cystic mass in the right mons pubis. POSTOPERATIVE DIAGNOSIS: Subcutaneous cystic mass in the right mons pubis. PROCEDURE: Excision of a subcutaneous mass. SURGEON: Srinivas Newsome MD ANESTHESIOLOGIST: Neal Munoz MD ANESTHESIA: General and local. INTRAVENOUS FLUIDS: 600 mL. ESTIMATED BLOOD LOSS: 1 mL. COMPLICATIONS: None. PATHOLOGY: Subcutaneous sebaceous cystic mass. FINDINGS: Examination under anesthesia showed a 3 x 2 cm subcutaneous mass. Upon excision, the mass was noted to contain grayish sebaceous material. The mass was removed in its entirety. DESCRIPTION OF PROCEDURE: The patient was met preoperatively. Risks, benefits, and alternatives of surgery were discussed in detail. All questions were answered. The patient verbalized understanding and requested to proceed with the surgery. The patient was brought to the OR with the IV running. She was placed on the surgical table in the supine position. Anesthesia was achieved without difficulty. The patient was then placed in a dorsal lithotomy position with adjustable Tim stirrups. Examination under anesthesia revealed a 3 x 2 cm subcutaneous fluctuant mass. The patient was prepped and draped in the usual sterile fashion. A timeout procedure was conducted as per standard protocol. The subcutaneous area around the mass was indurated with a solution of Marcaine. An elliptical incision was made over the mass with the borders slightly extending above the length of the incision. The cystic mass was then grasped with an Allis forceps and lifted from the subcutaneous tissue. The cystic mass was then excised in its entirety and the tissue was sent to Pathology. Cautery was used to obtain good hemostasis. The subcutaneous tissues were then approximated with several interrupted 3-0 chromic sutures to eliminate space. The skin was then closed with a 3-0 chromic suture with a subcutaneous stitch. Good hemostasis and approximation were noted. Once this was completed, the patient was returned to supine position. Sponge, lap, needle counts were correct. The patient was transferred to recovery room in stable condition. SRINIVAS NEWSOME M.D. [id number]
--- NOTE | 2019-02-19 16:33 | PATH ---
Surgical Pathology Report Patient Name: SIDRA OSEGUERA [facility]. Rec. #: [id number] /Age/Gender: 1940 (Age: 78) / F Account: [id number] Location: [facility] SURGICAL Taken: 02/18/2019 Received: 02/18/2019 Reported: 02/19/2019 Physicians: Esvin Lewis M.D. Specimen(s) Received SUBCUTANEOUS CYST Clinical History Mass-vulva Final Diagnosis PERINEUM, SUBCUTANEOUS CYST, EXCISION: EPIDERMAL INCLUSION CYST. Electronically Signed Nanda Bell M.D. Gross Description Received fresh labeled "subcutaneous cyst," is a 2.4 x 0.9 x 0.2 cm aggregate of orta-pink, disrupted portions of soft tissue admixed with orta sebaceous material, possibly consistent with a disrupted cyst and cyst contents. Registered Radiation Therapist sections are submitted in one cassette. /02/18/2019 saudi02/18/2019
== END 2019-02-18 12:25 | disposition home or self-care (01) ==
LOC: JASU-SURG 07:12
PROVIDERS: ATTEND Obstetrics & Gynecology
PROC: 0JBB0ZZ Excision of Perineum Subcutaneous Tissue and Fascia, Open Approach (ICD-10-PCS; principal; 2019-02-18 09:00)
DX: N90.7 Vulvar cyst (principal); I10 Essential (primary) hypertension; J44.9 Chronic obstructive pulmonary disease, unspecified
CPT/HCPCS: 88304-TC; 94760

== ENCOUNTER 2019-02-23 04:25 | Inpatient (IN) | payer OTHER, MEDICARE ==
[2019-02-23] MEDS ORDERED: SODIUM CHLORIDE 1,000 ML IV ONE (05:08)
[2019-02-23] MEDS ORDERED: ALBUTEROL SO4 2.5/IPRATROPIUM 0.5 INH SOL 3 ML VIAL.NEB. NEB ONE ×2 (05:09→05:38)
[2019-02-23] MEDS ORDERED: methylPREDNISolone NA SUCC 125 MG/2 ML VIAL IVPB ONE (05:10)
--- NOTE | 2019-02-23 05:11 | PDOC ---
History of Present Illness - General Chief Complaint: Shortness of Breath Stated Complaint: SOB W/Wheezing Time Seen by Provider: 02/23/19 05:02 History Source: Patient Exam Limitations: No Limitations - History of Present Illness Initial Comments: 02/23/19 05:11 This is a 78-year-old female with history of COPD who comes in complaining of difficulty breathing 2 days. Patient also was noted to have a temperature of 101.9 here in the emergency department. Patient otherwise is complaining of a sore throat. Patient said she took her Symbicort today but didn't take her other COPD medications. Patient denies any chest pain, nausea, vomiting or diarrhea. He is noted to have a moist productive sounding cough in the ED. Allergies: as per nursing notes Past Medical History: COPD Social history: Lives with family. No smoking. No alcohol. No illicit drugs. Surgical history: None General: No fevers or chills, no weakness, no weight loss HEENT: No change in vision. No sore throat,. No ear pain CardioVascular: no chest discomfort. No shortness of breath Respiratory:+ cough, + wheezing. Gastrointestinal: no nausea, vomiting, diarrhea or constipation, No rectal bleeding Genitourinary: No dysuria, hematuria, or frequency Musculoskeletal: No joint or muscle pain or swelling Neurologic: No headache, vertigo, dizziness or loss of consciousness Psychiatric: nor depression Skin: No rashes or easy bruising Endocrine: no increased thirst or abnormal weight change Allergic: no skin or latex allergy All other systems reviewed and normal Exam: General: Well-nourished well-developed individual, no acute distress HEENT: Throat: Normal, tonsils normal, no erythema or exudate Neck: Supple, no meningeal signs, no lymphadenopathy Eyes::Pupils equal reactive and round, extraocular motion intact Chest: Nontender to palpation Cardiac: S1-S2 normal, regular rate and rhythm, no murmurs rubs or gallops Respiratory: Lungs decreased breath sounds bilaterally with some coarse breath sounds at the bases and expiratory wheezing Abdomen: Soft, nondistended, normal bowel sounds, there is no tenderness on palpation diffusely Extremities: Warm, dry, no cyanosis, clubbing, or edema Skin: No rashes Neuro: Alert and oriented x3, CN II - XII intact, nonfocal exam with normal strength, normal sensation, normal reflexes, normal gait, Psych: Normal mood and affect Assessment and plan: Workup initiated including's sepsis workup patient given DuoNeb and Solu-Medrol and Tylenol for her fever. 02/23/19 06:59 Reevaluation patient sleeping comfortably. Patient respiratory rate however still elevated at 30 and workup is still all pending. Care of this patient transferred to Dr. Barrett at 7 AM Case discussed in detail with oncoming Emergency Physician including history, physical exam and ancillary studies. Oncoming Emergency Physician has assumed care for the patient and will complete the evaluation and treatment. Patient is aware of the plan. Pt is clinically unchanged and stable. Past History - Past Medical History Allergies/Adverse Reactions: Allergies Allergy/AdvReac Type Severity Reaction Status Date / Time Stock Ragweed Pollen Mixture Allergy Intermediate Cough Verified 10/11/18 12:56 No Known Drug Allergies Allergy Verified 10/11/18 12:56 Home Medications: Ambulatory Orders Aspirin [ASA -] 81 mg PO DAILY 02/23/17 Tiotropium [place] [Spiriva Respimat] 2 puff IH DAILY inhaler 09/13/18 Ascorbic Acid [Vitamin C -] 500 mg PO BID #60 tablet 10/24/18 Multivitamins [Multivit ([facility] Formulary)] 1 tab PO DAILY #30 tab 10/24/18 Budesonide/Formeterol Fumarate [SYMBICORT 160/4.5mcg -] 2 puff IH DAILY Cholecalciferol (Vitamin D3) [Vitamin D3 -] 4,000 unit PO DAILY 02/15/19 Cephalexin [Keflex] 500 mg PO BID 5 Days #10 capsule 02/18/19 Diltiazem Cd [Cardizem Cd -] 240 mg PO DAILY 02/18/19 Anemia: No Asthma: No Cancer: Yes (LEFT BREAST 1999) Cardiac Disorders: Yes (CAD) CVA: No COPD: Yes CHF: No Dementia: No Diabetes: No GI Disorders: Yes (H/O COLONIC POLYPS) Disorders: No HTN: Yes Hypercholesterolemia: Yes Liver Disease: No Seizures: No Thyroid Disease: No - Surgical History Abdominal Surgery: No Appendectomy: Yes (2003) Cardiac Surgery: Yes (ANGIOPLASTY/STENT PLACEMENT) Cholecystectomy: Yes (2004) Lung Surgery: No Neurologic Surgery: No Orthopedic Surgery: Yes (RIGHT HIP REPLACEMENT 1999/LEFT THR) - Immunization History Immunization Up to Date: No - Suicide/Smoking/Psychosocial Hx Smoking Status: No Smoking History: Current every day smoker Have you smoked in the past 12 months: Yes Number of Cigarettes Smoked Daily: 20 If you are a former smoker, when did you quit?: 2011 Information on smoking cessation initiated: No 'Breaking Loose' booklet given: 10/05/17 Hx Alcohol Use: No Drug/Substance Use Hx: No Substance Use Type: None Hx Substance Use Treatment: No *Physical Exam - Vital Signs Last Vital Signs Temp Pulse Resp BP Pulse Ox 100.9 F H 114 H 24 H 196/94 H 97 02/23/19 04:35 02/23/19 04:57 02/23/19 04:35 02/23/19 04:35 02/23/19 04:57 ED Treatment Course - LABORATORY CBC & Chemistry Diagram: 02/23/19 05:10 02/23/19 05:15 *DC/Admit/Observation/Transfer Diagnosis at time of Disposition: COPD exacerbation - Discharge Dispostion Condition at time of disposition: Stable - Referrals - Patient Instructions - Post Discharge Activity
[2019-02-23] MEDS ORDERED: ACETAMINOPHEN 500 MG TABLET (FP) PO ONE (05:13)
[2019-02-23] MEDS ORDERED: ACETAMINOPHEN INJECTION 100 ML IVPB ONE (05:38)
[2019-02-23] MEDS ORDERED: methylPREDNISolone NA SUCC 125 MG/2 ML VIAL ONE (05:38)
[2019-02-23 06:41] LABS: VENOUS PC02 46.2 mmHg (41-51); VENOUS PH 7.41 (7.31-7.41)
[2019-02-23 06:42] LABS: INR 0.92 (0.83-1.09); PROTHROMBIN TIME (PATIENT) 10.9 SEC (9.7-13.0)
[2019-02-23 06:43] LABS: URINE APPEARANCE CLEAR; URINE BILIRUBIN NEGATIVE (NEGATIVE); URINE COLOR YELLOW; URINE GLUCOSE (UA) NEGATIVE (NEGATIVE); URINE KETONE NEGATIVE (NEGATIVE); URINE LEUK ESTERASE NEGATIVE (NEGATIVE); URINE NITRITE NEGATIVE (NEGATIVE); URINE PROTEIN TRACE (NEGATIVE); URINE UROBILINOGEN 0.2 mg/dL (0.2-1.0)
[2019-02-23 07:18] LABS: ALBUMIN 3.4 g/dl (3.4-5.0); ALK PHOS 95 U/L (45-117); ANION GAP 7 MMOL/L (8-16); BILIRUBIN,TOTAL 0.4 mg/dL (0.2-1); BLOOD UREA NITROGEN 18.4 mg/dL (7-18); CALCIUM 8.5 mg/dL (8.5-10.1); CHLORIDE 106 mmol/L (98-107); CO2 29 mmol/L (21-32); CREATININE 0.9 mg/dL (0.55-1.3); GLUCOSE,RANDOM 112 mg/dL (74-106); POTASSIUM 4.1 mmol/L (3.5-5.1); SGOT/AST 82 U/L (15-37); SGPT/ALT 46 U/L (13-61); SODIUM 142 mmol/L (136-145); TOT PROT 6.9 g/dl (6.4-8.2)
--- NOTE | 2019-02-23 07:53 | PDOC ---
*Physical Exam - Vital Signs Last Vital Signs Temp Pulse Resp BP Pulse Ox 99.8 F H 98 H 19 174/74 H 96 02/23/19 07:47 02/23/19 07:47 02/23/19 07:47 02/23/19 07:47 02/23/19 07:47 ED Treatment Course - LABORATORY CBC & Chemistry Diagram: 02/23/19 05:10 02/23/19 05:15 - ADDITIONAL ORDERS Additional order review: Laboratory Results 02/23/19 02/23/19 02/23/19 05:17 05:15 05:15 PT with INR 10.90 INR 0.92 VBG pH 7.41 POC VBG pCO2 46.2 POC VBG pO2 VBG HCO3 28.4 VBG O2 Sat (Jane) 68.7 L VBG Base Excess 3.0 H Sodium Potassium Chloride Carbon Dioxide Anion Gap BUN Creatinine Est GFR (CKD-EPI)AfAm Est GFR (CKD-EPI)NonAf Random Glucose Lactic Acid Calcium Total Bilirubin AST ALT Alkaline Phosphatase Creatine Kinase Troponin I Total Protein Albumin Urine Color Yellow Urine Appearance Clear Urine pH 7.0 Ur Specific [place] 1.012 Urine Protein Trace Urine Glucose (UA) Negative Urine Ketones Negative Urine Blood Negative Urine Nitrite Negative Urine Bilirubin Negative Urine Urobilinogen 0.2 Ur Leukocyte Esterase Negative 02/23/19 02/23/19 05:15 05:15 PT with INR INR VBG pH POC VBG pCO2 POC VBG pO2 VBG HCO3 VBG O2 Sat (Jane) VBG Base Excess Sodium 142 Potassium 4.1 Chloride 106 Carbon Dioxide 29 Anion Gap 7 L BUN 18.4 H Creatinine 0.9 Est GFR (CKD-EPI)AfAm 71.98 Est GFR (CKD-EPI)NonAf 62.11 Random Glucose 112 H Lactic Acid 1.2 Calcium 8.5 Total Bilirubin 0.4 AST 82 H ALT 46 Alkaline Phosphatase 95 Creatine Kinase 96 Troponin I < 0.02 Total Protein 6.9 Albumin 3.4 Urine Color Urine Appearance Urine pH Ur Specific [place] Urine Protein Urine Glucose (UA) Urine Ketones Urine Blood Urine Nitrite Urine Bilirubin Urine Urobilinogen Ur Leukocyte Esterase - Medications Given in the ED: ED Medications Discontinued Medications Generic Name Dose Route Start Last Admin Trade Name Freq PRN Reason Stop Dose Admin Acetaminophen 1,000 mg 02/23/19 05:13 02/23/19 05:39 Tylenol - PO 02/23/19 05:14 1,000 mg ONCE ONE Administration Albuterol/Ipratropium 1 amp 02/23/19 05:09 02/23/19 05:29 Duoneb - NEB 02/23/19 05:10 1 amp ONCE ONE Administration Sodium Chloride 1,000 mls @ 1,000 mls/hr 02/23/19 05:08 02/23/19 05:29 Normal Saline - IV 02/23/19 06:07 1,000 mls/hr .Q1H ONE Administration Methylprednisolone Sodium Succinate 125 mg 02/23/19 05:10 02/23/19 05:39 Solu-Medrol - IVPB 02/23/19 05:11 125 mg ONCE ONE Administration Medical Decision Making - Medical Decision Making 02/23/19 07:50 I received Ms Waterman on sign out She presented tachypneic, wheezing, coughing and with a low grade fever Pt tells me she was exposed to a child who has strep throat and she too has throat pain rapid strep sent Pt given duonebs, IVF, Tylenol CXR done this AM reveals no acute chest pathology Pt is on supplemental O2, saturation = 93-96% 02/23/19 07:52 Laboratory Tests 02/23/19 02/23/19 02/23/19 05:15 05:15 05:15 INR 0.92 VBG pH 7.41 POC VBG pCO2 46.2 BUN 18.4 H Creatinine 0.9 Creatine Kinase 96 Troponin I < 0.02 Urine Ketones Urine Blood Ur Leukocyte Esterase 02/23/19 05:17 INR VBG pH POC VBG pCO2 BUN Creatinine Creatine Kinase Troponin I Urine Ketones Negative Urine Blood Negative Ur Leukocyte Esterase Negative CBC still not back Lab called Awaiting their response 02/23/19 08:03 Laboratory Tests 02/23/19 05:10 WBC 6.6 Hgb 12.9 Hct 38.4 D Plt Count 184 D *DC/Admit/Observation/Transfer Diagnosis at time of Disposition: COPD exacerbation - Discharge Dispostion Condition at time of disposition: Stable Decision to Admit order: Yes - Referrals - Patient Instructions - Post Discharge Activity
[2019-02-23 07:54] LABS: BASO % 0.2 % (0-2.0); EOS % 0.5 % (0-4.5); HEMATOCRIT 38.4 % (32.4-45.2); HEMOGLOBIN 12.9 GM/dL (10.7-15.3); LYMPH % 9.4 % (8-40); MCH 33.5 pg (25.7-33.7); MCHC 33.6 g/dl (32.0-36.0); MEAN CELL VOLUME 99.4 fl (80-96); MEAN PLT VOLUME 7.5 fl (7.5-11.1); MONO % 9.4 % (3.8-10.2); NEUT % 80.5 % (42.8-82.8); PLATELET COUNT 184 K/MM3 (134-434); RBC 3.86 M/mm3 (3.60-5.2); RDW 14.1 % (11.6-15.6); WHITE BLOOD COUNT 6.6 K/mm3 (4.0-10.0)
[2019-02-23 09:18] LABS: ACTIVATED PTT 29.1 SECONDS (25.2-36.5)
[2019-02-23] MEDS ORDERED: AZITHROMYCIN IVPB 500 MG in DEXTROSE 5%-WATER - 250 ML IVPB SCH (12:05)
--- NOTE | 2019-02-23 12:07 | HP ---
CHIEF COMPLAINT: SOB and sore throat. PCP: Dr. Salamanca HISTORY OF PRESENT ILLNESS: This is a 78 year old female with primary history significant for HTN, HLD, CAD s/p stent, LV Diastolic Dysfunction,Left Breast Ca (Stage 1, RT, 1999),UTI , pneumonia, and Vaginal Cyst rupture, who presents to ER complaining of sob and sore throat for 2 days. Pt reports that woke up this morning with chills, Temp on 99.8, dry cough, sob and sore throat. Pt denies cp, palpitations, abdominal pain, N/V/D or urinary symptoms. In ER, pt found to be wheezing, coughing,tachypneic, tachycardic, Temp 101.9 and BP 186/80. Pt received Duonebs, ,IVF, Tylenol with improvement. Cultures sent in Er. Of note, pt was admitted from 08/26/18 to 09/13/18 with Acute hypoxic hypercapnic respiratory failure secondary to pulmonary edema vs COPD exacerbation and pt was intubated at that time. ER course was notable for: (1) Temp 101.9,wbc 6.6, Trop neg (2)CxR: No acute lung pathology (3)ABG reviewed ) VBG O2 68.7, PH, CO2 - stable Recent Travel: PAST MEDICAL HISTORY: CAD, HTN, Hyperlipdemia Breast CA s/p lumpectomy and radiation therapy PAST SURGICAL HISTORY: AP 2003 Angioplasty/Stent Cholecystectomy 2004 R- Hip Replacement L- THR Social History: Smoking: Quit September 2018, smoked for >30 yrs Alcohol:1-2 drinks per day Drugs: None Family History: Allergies Stock Ragweed Pollen Mixture Allergy (Intermediate, Verified 10/11/18 12:56) Cough No Known Drug Allergies Allergy (Verified 10/11/18 12:56) HOME MEDICATIONS: Home Medications Medication Instructions Recorded Aspirin [ASA -] 81 mg PO DAILY 02/23/17 Tiotropium [place] [Spiriva 2 puff IH DAILY inhaler 09/13/18 Respimat] Ascorbic Acid [Vitamin C -] 500 mg PO BID #60 tablet 10/24/18 Multivitamins [Multivit ([facility] 1 tab PO DAILY #30 tab 10/24/18 Formulary)] Budesonide/Formeterol Fumarate 2 puff IH DAILY 02/15/19 [SYMBICORT 160/4.5mcg -] Cholecalciferol (Vitamin D3) 4,000 unit PO DAILY 02/15/19 [Vitamin D3 -] Cephalexin [Keflex] 500 mg PO BID 5 Days #10 capsule 02/18/19 Diltiazem Cd [Cardizem Cd -] 240 mg PO DAILY 02/18/19 REVIEW OF SYSTEMS CONSTITUTIONAL: Absent: fever, chills, diaphoresis, generalized weakness, malaise, loss of appetite, weight change HEENT: Absent: rhinorrhea, nasal congestion, positive throat pain, denies throat swelling, difficulty swallowing, mouth swelling, ear pain, eye pain, visual changes CARDIOVASCULAR: Absent: chest pain, syncope, palpitations, irregular heart rate, lightheadedness , peripheral edema RESPIRATORY: Dry cough cough, shortness of breath, dyspnea with exertion, orthopnea with wheezing denies stridor, hemoptysis GASTROINTESTINAL: Absent: abdominal pain, abdominal distension, nausea, vomiting, diarrhea, constipation, melena, hematochezia GENITOURINARY: Absent: dysuria, frequency, urgency, hesitancy, hematuria, flank pain, genital pain MUSCULOSKELETAL: Absent: myalgia, arthralgia, joint swelling, back pain, neck pain SKIN: Absent: rash, itching, pallor HEMATOLOGIC/IMMUNOLOGIC: Absent: easy bleeding, easy bruising, lymphadenopathy, frequent infections ENDOCRINE: Absent: unexplained weight gain, unexplained weight loss, heat intolerance, cold intolerance NEUROLOGIC: Absent: headache, focal weakness or paresthesias, dizziness, unsteady gait, seizure, mental status changes, bladder or bowel incontinence PSYCHIATRIC: Absent: anxiety, depression, suicidal or homicidal ideation, hallucinations. PHYSICAL EXAMINATION Vital Signs - 24 hr 02/23/19 02/23/19 02/23/19 04:35 04:57 05:06 Temperature 100.9 F H 101.9 F H Pulse Rate 116 H 114 H Pulse Rate [ Left Apical] Respiratory 24 H Rate Blood Pressure 196/94 H Blood Pressure [Left Arm] O2 Sat by Pulse 92 L 97 Oximetry (%) 02/23/19 02/23/19 02/23/19 05:59 06:26 07:47 Temperature 100.1 F H 99.8 F H Pulse Rate Pulse Rate [ 103 H 107 H 98 H Left Apical] Respiratory 16 16 19 Rate Blood Pressure Blood Pressure 186/80 H 169/79 174/74 H [Left Arm] O2 Sat by Pulse 100 94 L 94 L Oximetry (%) GENERAL: Awake, alert, and fully oriented, in no acute distress. HEAD: Normal with no signs of trauma. EYES: Pupils equal, round and reactive to light, extraocular movements intact, sclera anicteric, conjunctiva clear. No lid lag. EARS, NOSE, THROAT: Ears normal, nares patent, oropharynx clear without exudates. Moist mucous membranes. NECK: Normal range of motion, supple without lymphadenopathy, JVD, or masses. LUNGS: Diffuse Rhonchi with mild wheezing. No crackles. No accessory muscle use. HEART: Regular rate and rhythm, normal S1 and S2 without murmur, rub or gallop. ABDOMEN: Soft, nontender, not distended, normoactive bowel sounds, no guarding, no rebound, no masses. No hepatomegaly or splenomegaly. MUSCULOSKELETAL: Normal range of motion at all joints. No bony deformities or tenderness. No CVA tenderness. UPPER EXTREMITIES: 2+ pulses, warm, well-perfused. No cyanosis. No clubbing. No peripheral edema. LOWER EXTREMITIES: 2+ pulses, warm, well-perfused. No calf tenderness. No peripheral edema. NEUROLOGICAL: Cranial nerves II-XII intact. Normal speech. Normal gait. PSYCHIATRIC: Cooperative. Good eye contact. Appropriate mood and affect. SKIN: Warm, dry, normal turgor, no rashes or lesions noted, normal capillary refill. Bilateral lower upper and lower extremities with purpura. Laboratory Results - last 24 hr 02/23/19 02/23/19 02/23/19 05:10 05:15 05:15 WBC 6.6 RBC 3.86 Hgb 12.9 Hct 38.4 D MCV 99.4 H MCH 33.5 MCHC 33.6 RDW 14.1 Plt Count 184 D MPV 7.5 Absolute Neuts (auto) 5.3 Neutrophils % 80.5 Lymphocytes % 9.4 D Monocytes % 9.4 Eosinophils % 0.5 D Basophils % 0.2 Nucleated RBC % 0 PT with INR INR PTT (Actin FS) VBG pH POC VBG pCO2 POC VBG pO2 VBG HCO3 VBG O2 Sat (Jane) VBG Base Excess Sodium 142 Potassium 4.1 Chloride 106 Carbon Dioxide 29 Anion Gap 7 L BUN 18.4 H Creatinine 0.9 Est GFR (CKD-EPI)AfAm 71.98 Est GFR (CKD-EPI)NonAf 62.11 Random Glucose 112 H Lactic Acid 1.2 Calcium 8.5 Total Bilirubin 0.4 AST 82 H ALT 46 Alkaline Phosphatase 95 Creatine Kinase 96 Troponin I < 0.02 Total Protein 6.9 Albumin 3.4 Urine Color Urine Appearance Urine pH Ur Specific [place] Urine Protein Urine Glucose (UA) Urine Ketones Urine Blood Urine Nitrite Urine Bilirubin Urine Urobilinogen Ur Leukocyte Esterase Group A Strep Rapid 02/23/19 02/23/19 02/23/19 05:15 05:15 05:15 WBC RBC Hgb Hct MCV MCH MCHC RDW Plt Count MPV Absolute Neuts (auto) Neutrophils % Lymphocytes % Monocytes % Eosinophils % Basophils % Nucleated RBC % PT with INR 10.90 INR 0.92 PTT (Actin FS) 29.1 VBG pH 7.41 POC VBG pCO2 46.2 POC VBG pO2 VBG HCO3 28.4 VBG O2 Sat (Jane) 68.7 L VBG Base Excess 3.0 H Sodium Potassium Chloride Carbon Dioxide Anion Gap BUN Creatinine Est GFR (CKD-EPI)AfAm Est GFR (CKD-EPI)NonAf Random Glucose Lactic Acid Calcium Total Bilirubin AST ALT Alkaline Phosphatase Creatine Kinase Troponin I < 0.03 Total Protein Albumin Urine Color Urine Appearance Urine pH Ur Specific [place] Urine Protein Urine Glucose (UA) Urine Ketones Urine Blood Urine Nitrite Urine Bilirubin Urine Urobilinogen Ur Leukocyte Esterase Group A Strep Rapid 02/23/19 02/23/19 05:17 07:31 WBC RBC Hgb Hct MCV MCH MCHC RDW Plt Count MPV Absolute Neuts (auto) Neutrophils % Lymphocytes % Monocytes % Eosinophils % Basophils % Nucleated RBC % PT with INR INR PTT (Actin FS) VBG pH POC VBG pCO2 POC VBG pO2 VBG HCO3 VBG O2 Sat (Jane) VBG Base Excess Sodium Potassium Chloride Carbon Dioxide Anion Gap BUN Creatinine Est GFR (CKD-EPI)AfAm Est GFR (CKD-EPI)NonAf Random Glucose Lactic Acid Calcium Total Bilirubin AST ALT Alkaline Phosphatase Creatine Kinase Troponin I Total Protein Albumin Urine Color Yellow Urine Appearance Clear Urine pH 7.0 Ur Specific [place] 1.012 Urine Protein Trace Urine Glucose (UA) Negative Urine Ketones Negative Urine Blood Negative Urine Nitrite Negative Urine Bilirubin Negative Urine Urobilinogen 0.2 Ur Leukocyte Esterase Negative Group A Strep Rapid Negative ASSESSMENT/PLAN: This is a 78 y/o woman PMHx of HTN, HLD, CAD s/p Stent, L- Breast Ca (Stage 1, RT, 1999),UTI, pneumonia, Vaginal Cyst rupture,who presents to ER with worsening sob, sore throat and cough. Admitted with COPD exacerbation. *COPD exacerbation -s/p Solumedrol in ER - will resume on Solumedrol - Neb tx - will cont on home dose inhalers - on nasal O2 - will monitor pulse ox - pulmonary consulted - CxR- No evidence of pneumonia - started on Zithromax for poss bronchitis * Fever - no leukocytosis -cxr- No acute lung pathology -UA negative - will f/u on culture reports - will cont on Zithromax * Hx of CAD s/p stent- denies cp - trop neg x2 - will resume on ASA, CCB, not on BB or Statin ( reports taken off by her MD's) *HTN - initially, elevated BP - will resume on home dose Cardizem * HLD - off Stain (reports taken of by her card)) * Hx Breast CA- stable * VTE: Heparin SQ * GI Prophylaxis - Pepcid * F/E/N: Heart Healthy Diet. Visit type - Emergency Visit Emergency Visit: Yes Care time: The patient presented to the Emergency Department on the above date and was hospitalized for further evaluation of their emergent condition. - New Patient This patient is new to me today: Yes Date on this admission: 02/23/19 - Critical Care Critical Care patient: No
[2019-02-23] MEDS ORDERED: TIOTROPIUM BROMIDE 2.5 MCG (SPIRIVA) RESPIMAT INHALER IH SCH (12:15)
[2019-02-23] MEDS: ASPIRIN 81 MG CHEWABLE TABLETS PO SCH (14:30)
[2019-02-23] MEDS: HEPARIN NA (PORCINE) 5,000 UNITS/ML 1ML VIAL SQ SCH ×2 (14:31→21:29)
--- NOTE | 2019-02-23 14:40 | CON.PULM ---
Consult Consult Specialty:: PULM/CCM Referred by:: Hospitalist Reason for Consultation:: SOB - History of Present Illness Chief Complaint: SOB History of Present Illness: 78 F, COPD, recent admission for acute respiratory failure and was intubated, HTN, HLD, CAD s/p stent, LV Diastolic Dysfunction, Left Breast CA (Stage 1, RT , 1999),UTI, pneumonia, and Vaginal Cyst rupture. Admitted via the ER due to SOB and and sore throat for the past 2 days. No travel history or sick contacts. (+) mild subjective fever. No night sweats or hemoptysis. In the ER had a temperature of 101.9. Started on Solumedrol and Zithromax. CXR: Clear, no acute process. - History Source History Provided By: Patient Limitations to Obtaining History: No Limitations - Past Medical History Cardio/Vascular: Yes: CAD, HTN, Hyperlipdemia Pulmonary: Yes: Bronchitis, COPD, Pneumonia, Previously Intubated. No: Asthma, Cancer, O2 Dependent, Pulmonary Embolus, Pulmonary Fibrosis, Sleep Apnea Psych: Yes: Other (alcohol abuse) - Past Surgical History Past Surgical History: Yes: Breast Biopsy (left Lumpectomy), Cholecystectomy, Joint Replacement (right hip), Stent - Alcohol/Substance Use Hx Alcohol Use: No History of Substance Use: reports: None - Smoking History Smoking history: Current every day smoker Have you smoked in the past 12 months: Yes Aproximately how many cigarettes per day: 20 If you are a former smoker, when did you quit?: 2011 - Social History Usual Living Arrangement: Alone ADL: Independent 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 History of Recent Travel: No Home Medications - Allergies Allergies/Adverse Reactions: Allergies Allergy/AdvReac Type Severity Reaction Status Date / Time Stock Ragweed Pollen Mixture Allergy Intermediate Cough Verified 10/11/18 12:56 No Known Drug Allergies Allergy Verified 10/11/18 12:56 - Home Medications Home Medications: Ambulatory Orders Aspirin [ASA -] 81 mg PO DAILY 02/23/17 Tiotropium [place] [Spiriva Respimat] 2 puff IH DAILY inhaler 09/13/18 Ascorbic Acid [Vitamin C -] 500 mg PO BID #60 tablet 10/24/18 Multivitamins [Multivit ([facility] Formulary)] 1 tab PO DAILY #30 tab 10/24/18 Budesonide/Formeterol Fumarate [SYMBICORT 160/4.5mcg -] 2 puff IH DAILY Cholecalciferol (Vitamin D3) [Vitamin D3 -] 4,000 unit PO DAILY 02/15/19 Cephalexin [Keflex] 500 mg PO BID 5 Days #10 capsule 02/18/19 Diltiazem Cd [Cardizem Cd -] 240 mg PO DAILY 02/18/19 Family Disease History - Family Disease History Family Disease History: Other: Father (: 80's: intestinal ischemia vs. colon cancer), Mother (: 70's: valvular heart disease/Rheumatic fever comps) , Brother (1: : 81: dementia), Sister (1, : 30: Cervical Ca), Son (1, healthy) Review of Systems - Review of Systems Constitutional: reports: Fever, Malaise. denies: Chills, Night Sweats Eyes: reports: No Symptoms HENT: reports: No Symptoms Neck: reports: No Symptoms Cardiovascular: reports: Shortness of Breath. denies: Chest Pain, Edema, Palpitations Respiratory: reports: Cough, SOB, SOB on Exertion, Wheezing. denies: Hemoptysis , Orthopnea, PND, Snoring Gastrointestinal: reports: No Symptoms Genitourinary: reports: No Symptoms Breasts: reports: No Symptoms Reported Musculoskeletal: reports: No Symptoms Integumentary: reports: Bruising, Change in Color Neurological: reports: No Symptoms Endocrine: reports: No Symptoms Hematology/Lymphatic: reports: No Symptoms Psychiatric: reports: No Symptoms Physical Exam Vital Sings: Vital Signs Temperature 98.6 F 02/23/19 11:35 Pulse Rate 88 02/23/19 11:35 Respiratory Rate 22 H 02/23/19 11:35 Blood Pressure 174/70 H 02/23/19 11:35 O2 Sat by Pulse Oximetry (%) 95 02/23/19 11:35 Constitutional: Yes: No Distress, Anxious, Thin Eyes: Yes: Conjunctiva Clear, EOM Intact HENT: Yes: Atraumatic, Normocephalic Neck: Yes: Supple, Trachea Midline Cardiovascular: Yes: Regular Rate and Rhythm Respiratory: Yes: Cough, Diminished, Rhonchi, SOB, SOB on Exertion, Tachypnea, Wheezes. No: Accessory Muscle Use, Rales, Stridor ...Inspection: Yes: WNL ...Clubbing: No Gastrointestinal: Yes: Normal Bowel Sounds, Soft Renal/: Yes: WNL Musculoskeletal: Yes: WNL Extremities: Yes: WNL Edema: No Peripheral Pulses WNL: Yes Integumentary: Yes: Bruising, Venous Stasis Changes Neurological: Yes: WNL, Alert, Oriented ...Motor Strength: WNL Psychiatric: Yes: WNL, Alert, Oriented Labs: CBC, BMP 02/23/19 05:10 02/23/19 05:15 Imaging - Results Chest X-ray: Report Reviewed, Image Reviewed Problem List - Problems (1) COPD exacerbation Code(s): J44.1 - CHRONIC OBSTRUCTIVE PULMONARY DISEASE W (ACUTE) EXACERBATION (2) Anemia Code(s): D64.9 - ANEMIA, UNSPECIFIED (3) Breast CA Code(s): C50.919 - MALIGNANT NEOPLASM OF UNSP SITE OF UNSPECIFIED FEMALE BREAST (4) Bronchitis Code(s): J40 - BRONCHITIS, NOT SPECIFIED ACUTE OR CHRONIC (5) CAD (coronary artery disease) Code(s): I25.10 - ATHSCL HEART DISEASE OF [place] CORONARY ARTERY W/O ANG PCTRS Qualifiers: Coronary Disease-Associated Artery/Lesion type: [place] artery [place] vs. transplanted heart: [place] heart Associated angina: without angina Qualified Code(s): I25.10 - Atherosclerotic heart disease of [place] coronary artery without angina pectoris (6) COPD (chronic obstructive pulmonary disease) Code(s): J44.9 - CHRONIC OBSTRUCTIVE PULMONARY DISEASE, UNSPECIFIED (7) Cough Code(s): R05 - COUGH (8) HLD (hyperlipidemia) Code(s): E78.5 - HYPERLIPIDEMIA, UNSPECIFIED Qualifiers: Hyperlipidemia type: mixed hyperlipidemia Qualified Code(s): E78.2 - Mixed hyperlipidemia (9) HTN (hypertension) Code(s): I10 - ESSENTIAL (PRIMARY) HYPERTENSION Qualifiers: (10) Macrocytic anemia Code(s): D53.9 - NUTRITIONAL ANEMIA, UNSPECIFIED (11) PSVT (paroxysmal supraventricular tachycardia) Code(s): I47.1 - SUPRAVENTRICULAR TACHYCARDIA Assessment/Plan Medrol BD TX Noted Zithromax Follow cultures O2 as needed Prior to DC, check pre and post ambulation O2 saturation Avoid LAMA (Spiriva given Duoneb) No smoking counseled VTE prophylaxis Thank you. Dr Macedo
[2019-02-23 14:48] VITALS: BMI 19.0
[2019-02-23] MEDS: ALBUTEROL SO4 2.5/IPRATROPIUM 0.5 INH SOL 3 ML VIAL.NEB. NEB SCH ×2 (18:00→21:29)
[2019-02-23] MEDS: methylPREDNISolone NA SUCC 40 MG/1 ML VIAL IVPUSH SCH (18:00)
[2019-02-23] MEDS: FAMOTIDINE 20 MG TABLET PO SCH (21:29)
[2019-02-23] MEDS: ASCORBIC ACID 500 MG TABLET (FP) PO SCH (21:29)
[2019-02-24] MEDS: methylPREDNISolone NA SUCC 40 MG/1 ML VIAL IVPUSH SCH ×3 (01:29→18:04)
[2019-02-24] MEDS: HEPARIN NA (PORCINE) 5,000 UNITS/ML 1ML VIAL SQ SCH ×3 (05:23→21:16)
[2019-02-24] MEDS: ALBUTEROL SO4 2.5/IPRATROPIUM 0.5 INH SOL 3 ML VIAL.NEB. NEB SCH ×4 (08:02→20:17)
[2019-02-24] MEDS ORDERED: PT OWN MED DRAWER 7, Y5N ONE (09:14)
[2019-02-24] MEDS: BUDESONIDE/FORMETEROL FUMARATE 160/4.5 mcg INHALER IH SCH (09:34)
[2019-02-24] MEDS: ASCORBIC ACID 500 MG TABLET (FP) PO SCH ×2 (09:34→21:16)
[2019-02-24] MEDS: MULTIVITAMINS (DAILY MVI) TABLET (FP) PO SCH (09:34)
[2019-02-24] MEDS: FAMOTIDINE 20 MG TABLET PO SCH ×2 (09:34→21:16)
[2019-02-24] MEDS: ASPIRIN 81 MG CHEWABLE TABLETS PO SCH (09:34)
[2019-02-24] MEDS ORDERED: CHOLECALCIFEROL (VIT D3) 400 UNIT (10 MCG) TABLET PO SCH (10:00)
--- NOTE | 2019-02-24 11:12 | PN ---
Physical Exam: SUBJECTIVE: Patient seen and examined pt feeling better urine cx 10-20,000 pseudomonas pt denies urinary dysuria, frequency, frequency OBJECTIVE: Vital Signs Period Temp Pulse Resp BP Sys/Prakash Pulse Ox Last 24 Hr 98.0 F-99.8 F 88-103 18-22 152-190/41-76 93-97 GENERAL: The patient is awake, alert, and fully oriented, in no acute distress. HEAD: Normal with no signs of trauma. EYES: PERRL, extraocular movements intact, sclera anicteric, conjunctiva clear. No ptosis. ENT: Ears normal, nares patent, oropharynx clear without exudates, moist mucous membranes. NECK: Trachea midline, full range of motion, supple. LUNGS: Breath sounds equal, clear to auscultation bilaterally, no wheezes, no crackles, no accessory muscle use. HEART: Regular rate and rhythm, S1, S2 without murmur, rub or gallop. ABDOMEN: Soft, nontender, nondistended, normoactive bowel sounds, no guarding, no rebound, no hepatosplenomegaly, no masses. EXTREMITIES: 2+ pulses, warm, well-perfused, no edema. NEUROLOGICAL: Cranial nerves II through XII grossly intact. Normal speech, gait not observed. PSYCH: Normal mood, normal affect. SKIN: Warm, dry, normal turgor, no rashes or lesions noted Active Medications Generic Name Dose Route Start Last Admin Trade Name Freq PRN Reason Stop Dose Admin Albuterol/Ipratropium 1 amp 02/23/19 16:00 02/24/19 08:02 Duoneb - NEB Not Given RQID [place] Ascorbic Acid 500 mg 02/23/19 22:00 02/24/19 09:34 Vitamin C - PO 500 mg BID [place] Administration Aspirin 81 mg 02/23/19 12:15 02/24/19 09:34 Asa - PO 81 mg DAILY [facility] Administration Budesonide/Formoterol Fumarate 2 puff 02/24/19 10:00 02/24/19 09:34 Symbicort 160/4.5mcg - IH 2 puff DAILY [place] Administration Cholecalciferol 4,000 unit 02/24/19 10:00 Vitamin D3 - PO DAILY [place] Diltiazem HCl 240 mg 02/23/19 12:15 02/24/19 09:34 Cardizem Cd - PO 240 mg DAILY [place] Administration Famotidine 20 mg 02/23/19 22:00 02/24/19 09:34 Pepcid - PO 20 mg BID [place] Administration Heparin Sodium (Porcine) 5,000 unit 02/23/19 14:00 02/24/19 05:23 Heparin - SQ Not Given TID [facility] Azithromycin 500 mg/ Dextrose 250 mls @ 250 mls/hr 02/24/19 14:02 IVPB DAILY [place] Methylprednisolone Sodium Succinate 40 mg 02/23/19 18:00 02/24/19 09:35 Solu-Medrol - IVPUSH 40 mg Q8H-IV [place] Administration Multivitamins/Minerals/Vitamin C 1 tab 02/24/19 10:00 02/24/19 09:34 Tab-A-Vit - PO 1 tab DAILY [place] Administration ASSESSMENT/PLAN: This is a 78 y/o woman PMHx of HTN, HLD, CAD s/p Stent, L- Breast Ca (Stage 1, RT, 1999),UTI, pneumonia, Vaginal Cyst rupture,who presents to ER with worsening sob, sore throat and cough. Admitted with COPD exacerbation. *COPD exacerbation - Solumedrol - Neb tx - cont on home dose inhalers - on nasal O2 - monitor pulse ox - pulmonary following - CxR- No evidence of pneumonia - on Zithromax for poss bronchitis * Fever - no leukocytosis -cxr- No acute lung pathology -UA negative - will f/u on culture reports - will cont on Zithromax #s/p vulvar excision of cyst 1 week ago -completed Keflex -urine cx- 10-20,000 pseudomonas will hold off abt-no fever, leuko * Hx of CAD s/p stent- denies cp - trop neg x2 - ASA, CCB, not on BB or Statin ( reports taken off by her MD's) *HTN - initially, elevated BP - on home dose Cardizem * HLD - off Stain (reports taken of by her card)) * Hx Breast CA- stable * VTE: Heparin SQ * GI Prophylaxis - Pepcid * F/E/N: Heart Healthy Diet. Visit type - Emergency Visit Emergency Visit: Yes ED Registration Date: 02/23/19 Care time: The patient presented to the Emergency Department on the above date and was hospitalized for further evaluation of their emergent condition. - New Patient This patient is new to me today: Yes Date on this admission: 02/24/19 - Critical Care Critical Care patient: No
[2019-02-24 11:29] LABS: BASO % 0.8 % (0-2.0); HEMATOCRIT 37.5 % (32.4-45.2); HEMOGLOBIN 12.7 GM/dl (10.7-15.3); LYMPH % 4.1 % (8-40); MCH 33.7 pg (25.7-33.7); MCHC 33.9 g/dl (32.0-36.0); MEAN CELL VOLUME 99.4 fl (80-96); MEAN PLT VOLUME 7.2 fl (7.5-11.1); MONO % 6.6 % (3.8-10.2); NEUT % 88.5 % (42.8-82.8); PLATELET COUNT 199 K/MM3 (134-434); RBC 3.77 M/mm3 (3.60-5.2); WHITE BLOOD COUNT 8.2 K/mm3 (4.0-10.8)
[2019-02-24 11:53] LABS: ALBUMIN 3.2 g/dl (3.4-5.0); BILIRUBIN,TOTAL 0.5 mg/dl (0.2-1); CALCIUM 8.5 mg/dl (8.5-10); CREATININE 0.9 mg/dl (0.55-1.3); POTASSIUM 3.9 mmol/L (3.5-5.1); TOT PROT 6.2 g/dl (6.4-8.2)
[2019-02-24] MEDS ORDERED: SODIUM CHLORIDE 0.9% 500 ML INFUS.BAG IV SCH (12:30)
[2019-02-24] MEDS: CHOLECALCIFEROL (VIT D3) 1,000 UNIT (25 MCG) TABLET PO SCH (14:19)
[2019-02-24] MEDS: AZITHROMYCIN IVPB 500 MG in DEXTROSE 5%-WATER - 250 ML IVPB SCH (14:19)
[2019-02-25] MEDS: methylPREDNISolone NA SUCC 40 MG/1 ML VIAL IVPUSH SCH ×3 (02:32→18:31)
--- NOTE | 2019-02-25 06:46 | EKG ---
Test Reason : Blood Pressure : / mmHG Vent. Rate : 115 BPM Atrial Rate : 115 BPM P-R Int : 130 ms QRS Dur : 072 ms QT Int : 316 ms P-R-T Axes : 076 048 068 degrees QTc Int : 437 ms SINUS TACHYCARDIA WITH PREMATURE ATRIAL COMPLEXES POSSIBLE LEFT ATRIAL ENLARGEMENT ANTEROSEPTAL INFARCT (CITED ON OR BEFORE 26-AUG-2018) ABNORMAL ECG WHEN COMPARED WITH ECG OF 29-AUG-2018 09:24, PREMATURE ATRIAL COMPLEXES ARE NOW PRESENT Confirmed by NEY RICHEY MD ([id number]) on 02/25/2019 6:46:30 AM Referred By: MD RODRÍGUEZ Confirmed By:NEY RICHEY MD
[2019-02-25] MEDS: HEPARIN NA (PORCINE) 5,000 UNITS/ML 1ML VIAL SQ SCH ×2 (06:47→21:39)
[2019-02-25 07:48] LABS: HEMATOCRIT 37.7 % (32.4-45.2); HEMOGLOBIN 12.7 GM/dl (10.7-15.3); LYMPH % 2.8 % (8-40); MCH 33.6 pg (25.7-33.7); MCHC 33.7 g/dl (32.0-36.0); MEAN CELL VOLUME 99.7 fl (80-96); MEAN PLT VOLUME 7.7 fl (7.5-11.1); MONO % 3.1 % (3.8-10.2); NEUT % 94.1 % (42.8-82.8); PLATELET COUNT 175 K/MM3 (134-434); RBC 3.78 M/mm3 (3.60-5.2); WHITE BLOOD COUNT 12.2 K/mm3 (4.0-10.8)
[2019-02-25 08:03] LABS: BILIRUBIN,TOTAL 0.6 mg/dl (0.2-1); CALCIUM 8.4 mg/dl (8.5-10); CREATININE 0.7 mg/dl (0.55-1.3); POTASSIUM 4.5 mmol/L (3.5-5.1); TOT PROT 5.8 g/dl (6.4-8.2)
[2019-02-25] MEDS: ALBUTEROL SO4 2.5/IPRATROPIUM 0.5 INH SOL 3 ML VIAL.NEB. NEB SCH ×4 (08:38→20:10)
[2019-02-25] MEDS: AZITHROMYCIN IVPB 500 MG in DEXTROSE 5%-WATER - 250 ML IVPB SCH (09:22)
[2019-02-25] MEDS: FAMOTIDINE 20 MG TABLET PO SCH ×2 (09:24→21:39)
[2019-02-25] MEDS: ASPIRIN 81 MG CHEWABLE TABLETS PO SCH (09:24)
[2019-02-25] MEDS: CHOLECALCIFEROL (VIT D3) 1,000 UNIT (25 MCG) TABLET PO SCH (09:25)
[2019-02-25] MEDS: MULTIVITAMINS (DAILY MVI) TABLET (FP) PO SCH (09:25)
[2019-02-25] MEDS: ASCORBIC ACID 500 MG TABLET (FP) PO SCH ×2 (09:25→21:39)
[2019-02-25] MEDS: AZITHROMYCIN IVPB 500 MG/250 ML BAG IVPB SCH (10:07)
[2019-02-25] MEDS: BUDESONIDE/FORMETEROL FUMARATE 160/4.5 mcg INHALER IH SCH (10:07)
--- NOTE | 2019-02-25 14:15 | PN ---
Physical Exam: SUBJECTIVE: Patient seen and examined at bedside after observing ambulating from nurse's station to room. OBJECTIVE: Vital Signs Period Temp Pulse Resp BP Sys/Prakash Pulse Ox Last 24 Hr 97.7 F-98.9 F 78-94 18-22 135-152/46-61 94-100 GENERAL: The patient is awake, alert, and fully oriented, mild respiratory distress with ambulation. Thin, frail, cachectic, protruding clavicles, absence of body fat LUNGS: Diminished breath sounds at bases, +accessory muscle use, mildly dyspneic with speaking HEART: Regular rate and rhythm, S1, S2 ABDOMEN: Soft, nontender, nondistended EXTREMITIES: 2+ pulses, warm, well-perfused, no edema NEUROLOGICAL: Cranial nerves II through XII grossly intact. Normal speech, steady gait SKIN: Warm, dry; all four extremities with extensive eccyhmoses; lower ext: skin intact at graft sites Laboratory Results - last 24 hr 02/25/19 02/25/19 07:05 07:05 WBC 12.2 H RBC 3.78 Hgb 12.7 Hct 37.7 MCV 99.7 H MCH 33.6 MCHC 33.7 RDW 13.0 Plt Count 175 MPV 7.7 Absolute Neuts (auto) 11.5 Neutrophils % 94.1 H Lymphocytes % 2.8 L Monocytes % 3.1 L Eosinophils % 0.0 Basophils % 0.0 Sodium 140 Potassium 4.5 Chloride 106 Carbon Dioxide 26 Anion Gap 8 BUN 25.0 H Creatinine 0.7 Est GFR (CKD-EPI)AfAm 97.54 Est GFR (CKD-EPI)NonAf 84.16 Random Glucose 169 H Calcium 8.4 L Total Bilirubin 0.6 AST 43 H ALT 37 Alkaline Phosphatase 61 Total Protein 5.8 L Albumin 3.0 L Active Medications Generic Name Dose Route Start Last Admin Trade Name Freq PRN Reason Stop Dose Admin Albuterol/Ipratropium 1 amp 02/23/19 16:00 02/25/19 12:00 Duoneb - NEB 1 amp RQID [facility] Administration Ascorbic Acid 500 mg 02/23/19 22:00 02/25/19 09:25 Vitamin C - PO 500 mg BID [facility] Administration Aspirin 81 mg 02/23/19 12:15 02/25/19 09:24 Asa - PO 81 mg DAILY [facility] Administration Budesonide/Formoterol Fumarate 2 puff 02/24/19 10:00 02/25/19 10:07 Symbicort 160/4.5mcg - IH 2 puff DAILY [facility] Administration Cholecalciferol 4,000 unit 02/24/19 10:00 02/25/19 09:25 Vitamin D3 - PO 4,000 unit DAILY [facility] Administration Diltiazem HCl 240 mg 02/23/19 12:15 02/25/19 09:24 Cardizem Cd - PO 240 mg DAILY [facility] Administration Famotidine 20 mg 02/23/19 22:00 02/25/19 09:24 Pepcid - PO 20 mg BID [facility] Administration Heparin Sodium (Porcine) 5,000 unit 02/23/19 14:00 02/25/19 06:47 Heparin - SQ 5,000 unit TID [facility] Administration Azithromycin 500 mg in 250 mls @ 250 mls/hr 02/25/19 09:26 02/25/19 10:07 Zithromax 500mg Ivpb (Pre-Docked) IVPB 250 mls/hr DAILY [facility] Administration Methylprednisolone Sodium Succinate 40 mg 02/23/19 18:00 02/25/19 09:25 Solu-Medrol - IVPUSH 40 mg Q8H-IV [facility] Administration Multivitamins/Minerals/Vitamin C 1 tab 02/24/19 10:00 02/25/19 09:25 Tab-A-Vit - PO 1 tab DAILY [facility] Administration Sodium Chloride 75 ml 02/24/19 12:30 02/24/19 14:20 Normal Saline - IV 75 ml ONCE [facility] Administration Microbiology 02/23/19 05:17 Urine - Urine Clean Catch Urine Culture - Final Pseudomonas Aeruginosa 02/23/19 05:15 Blood - Peripheral Venous Blood Culture - Preliminary NO GROWTH OBTAINED AFTER 48 HOURS, INCUBATION TO CONTINUE FOR 3 DAYS. 02/23/19 05:15 Blood - Peripheral Venous Blood Culture - Preliminary NO GROWTH OBTAINED AFTER 48 HOURS, INCUBATION TO CONTINUE FOR 3 DAYS. 02/23/19 08:24 Throat Throat Culture - Final NO BETA HEMOLYTIC STREPTOCOCCI ISOLATED ASSESSMENT/PLAN: 78 year-old female with a PMH significant for HTN, HLD, CAD s/p stent, diastolic heart failure, anemia of chronic disease, COPD current/recent smoker, breast cancer s/p lumpectomy and RXT 1999. Admitted for COPD exacerbation and likely pneumonia. Acute on chronic COPD exacerbation Sepsis likely secondary to pneumonia --intubated in August in ICU for severe COPD exacerbation --fever to 101.9 in ED, WBC 12.2k today, lactic acid wnl --throat culture and rapid strep negative --blood culture NGTD --UA negative, urine culture (+) pseudomonas 10-20k --CXR unremarkable, will get CT chest --stop azithro, start Zosyn (has been on Keflex for past week for cyst removal -- see below) --solumedrol 40mg q8h --duonebs, Symbicort --pulmonary following --ID following Vulvar cyst s/p excision x 1 week --right vulva, bandaid c/d/i, patient does not want removed so wound not visualized but no surrounding erythema, tenderness, fluctuance --completed course of Keflex, follow up with Dr. Lewis in one week Bilateral leg wounds s/p skin grafting in October 2018 --grafting sites well-healed, no sign of infection Diastolic heart failure --08/28/18 Echo: LV normal, EF 50%, Grade I diastolic dysfunction; RV normal; trace MR; mild AI --not on diuretics at home --appears euvolemic Coronary artery disease s/p stent --continue diltiazem, ASA Hypertension --BP stable --continue diltiazem Hyperlipidemia --not on statin Anemia of chronic disease --h/h stable Breast cancer --no acute issues Severe malnutrition --thin, frail, cachectic, protruding clavicles --absence of body fat --BMI 19 --nutrition consult FEN Fluids: PO intake adequate Electrolytes: replete as indicated Nutrition: low sodium DVT prophylaxis: subq heparin Physical therapy Dispo: continues to require inpatient care. Full code. D Visit type - Emergency Visit Emergency Visit: Yes ED Registration Date: 02/23/19 Care time: The patient presented to the Emergency Department on the above date and was hospitalized for further evaluation of their emergent condition. - New Patient This patient is new to me today: Yes Date on this admission: 02/25/19 - Critical Care Critical Care patient: No
--- NOTE | 2019-02-25 14:48 | CON.ID ---
Consult - Past Medical History Cardio/Vascular: Yes: CAD, HTN, Hyperlipdemia Pulmonary: Yes: Bronchitis, COPD, Pneumonia, Previously Intubated. No: Asthma, Cancer, O2 Dependent, Pulmonary Embolus, Pulmonary Fibrosis, Sleep Apnea ...: No Psych: Yes: Other (alcohol abuse) - Past Surgical History Past Surgical History: Yes: Breast Biopsy (left Lumpectomy), Cholecystectomy, Joint Replacement (right hip), Stent - Alcohol/Substance Use Hx Alcohol Use: No History of Substance Use: reports: None - Smoking History Smoking history: Current every day smoker Have you smoked in the past 12 months: Yes Aproximately how many cigarettes per day: 20 If you are a former smoker, when did you quit?: 2011 - Social History Usual Living Arrangement: Alone ADL: Independent Occupation: Retired: worked in [employer] History of Recent Travel: No Home Medications - Allergies Allergies/Adverse Reactions: Allergies Allergy/AdvReac Type Severity Reaction Status Date / Time Stock Ragweed Pollen Mixture Allergy Intermediate Cough Verified 10/11/18 12:56 No Known Drug Allergies Allergy Verified 10/11/18 12:56 - Home Medications Home Medications: Ambulatory Orders Aspirin [ASA -] 81 mg PO DAILY 02/23/17 Tiotropium [place] [Spiriva Respimat] 2 puff IH DAILY inhaler 09/13/18 Ascorbic Acid [Vitamin C -] 500 mg PO BID #60 tablet 10/24/18 Multivitamins [Multivit ([facility] Formulary)] 1 tab PO DAILY #30 tab 10/24/18 Budesonide/Formeterol Fumarate [SYMBICORT 160/4.5mcg -] 2 puff IH DAILY Cholecalciferol (Vitamin D3) [Vitamin D3 -] 4,000 unit PO DAILY 02/15/19 Cephalexin [Keflex] 500 mg PO BID 5 Days #10 capsule 02/18/19 Diltiazem Cd [Cardizem Cd -] 240 mg PO DAILY 02/18/19 Family Disease History - Family Disease History Family Disease History: Other: Father (: 80's: intestinal ischemia vs. colon cancer), Mother (: 70's: valvular heart disease/Rheumatic fever comps) , Brother (1: : 81: dementia), Sister (1, : 30: Cervical Ca), Son (1, healthy) Physical Exam Vital Signs: Vital Signs Temperature 97.7 F 02/25/19 14:13 Pulse Rate 94 H 02/25/19 14:13 Respiratory Rate 19 02/25/19 14:13 Blood Pressure 135/54 L 02/25/19 14:13 O2 Sat by Pulse Oximetry (%) 100 02/25/19 14:13 Labs: CBC, BMP 02/25/19 07:05 02/25/19 07:05
[2019-02-25] MEDS ORDERED: DEXTROSE 5%-WATER - 50 ML IVPB ONE ×2 (15:11→17:50)
[2019-02-25] MEDS ORDERED: PIPERACILLIN/TAZOBACTAM 3.375 GM VIAL IVPB ONE ×2 (15:11→17:50)
[2019-02-25] MEDS: PIPERACILLIN/TAZOB 3.375 GM 3.375 GM in DEXTROSE 5%-WATER - 50 ML IVPB SCH ×2 (15:24→18:32)
--- NOTE | 2019-02-25 17:42 | PN ---
Progress Note (short form) - Note Progress Note: PULMONARY VSS/AFEBRILE FEELS IMPROVED Constitutional: Yes: No Distress, Anxious, Thin Eyes: Yes: Conjunctiva Clear, EOM Intact HENT: Yes: Atraumatic, Normocephalic Neck: Yes: Supple, Trachea Midline Cardiovascular: Yes: Regular Rate and Rhythm Respiratory: Yes: Cough, Diminished, Rhonchi, SOB, SOB on Exertion, Tachypnea, Wheezes. No: Accessory Muscle Use, Rales, Stridor ...Inspection: Yes: WNL ...Clubbing: No Gastrointestinal: Yes: Normal Bowel Sounds, Soft Renal/: Yes: WNL Musculoskeletal: Yes: WNL Extremities: Yes: WNL Edema: No Peripheral Pulses WNL: Yes Integumentary: Yes: Bruising, Venous Stasis Changes Neurological: Yes: WNL, Alert, Oriented ...Motor Strength: WNL Psychiatric: Yes: WNL, Alert, Oriented Labs: NOTED Imaging - Results Chest X-ray: Report Reviewed, Image Reviewed Problem List - Problems (1) COPD exacerbation Code(s): J44.1 - CHRONIC OBSTRUCTIVE PULMONARY DISEASE W (ACUTE) EXACERBATION (2) Anemia Code(s): D64.9 - ANEMIA, UNSPECIFIED (3) Breast CA Code(s): C50.919 - MALIGNANT NEOPLASM OF UNSP SITE OF UNSPECIFIED FEMALE BREAST (4) Bronchitis Code(s): J40 - BRONCHITIS, NOT SPECIFIED ACUTE OR CHRONIC (5) CAD (coronary artery disease) Code(s): I25.10 - ATHSCL HEART DISEASE OF [place] CORONARY ARTERY W/O ANG PCTRS Qualifiers: Coronary Disease-Associated Artery/Lesion type: [place] artery [place] vs. transplanted heart: [place] heart Associated angina: without angina Qualified Code(s): I25.10 - Atherosclerotic heart disease of [place] coronary artery without angina pectoris (6) COPD (chronic obstructive pulmonary disease) Code(s): J44.9 - CHRONIC OBSTRUCTIVE PULMONARY DISEASE, UNSPECIFIED (7) Cough Code(s): R05 - COUGH (8) HLD (hyperlipidemia) Code(s): E78.5 - HYPERLIPIDEMIA, UNSPECIFIED Qualifiers: Hyperlipidemia type: mixed hyperlipidemia Qualified Code(s): E78.2 - Mixed hyperlipidemia (9) HTN (hypertension) Code(s): I10 - ESSENTIAL (PRIMARY) HYPERTENSION Qualifiers: (10) Macrocytic anemia Code(s): D53.9 - NUTRITIONAL ANEMIA, UNSPECIFIED (11) PSVT (paroxysmal supraventricular tachycardia) Code(s): I47.1 - SUPRAVENTRICULAR TACHYCARDIA Assessment/Plan Medrol same dose BD TX Noted Zithromax Follow cultures O2 as needed Prior to DC, check pre and post ambulation O2 saturation Avoid LAMA (Spiriva given Duoneb) No smoking counseled VTE prophylaxis Rukhsana SAUCEDO MD
[2019-02-26] MEDS ORDERED: PIPERACILLIN/TAZOBACTAM 3.375 GM VIAL IVPB ONE ×3 (00:19→18:55)
[2019-02-26] MEDS ORDERED: DEXTROSE 5%-WATER - 50 ML IVPB ONE ×3 (00:19→18:56)
[2019-02-26] MEDS: PIPERACILLIN/TAZOB 3.375 GM 3.375 GM in DEXTROSE 5%-WATER - 50 ML IVPB SCH ×3 (01:18→18:59)
[2019-02-26] MEDS: methylPREDNISolone NA SUCC 40 MG/1 ML VIAL IVPUSH SCH ×3 (01:19→18:59)
--- NOTE | 2019-02-26 07:22 | PN ---
Progress Note, Physician History of Present Illness: pulmonary alert,feeling better,dyspnea improving,less cough - Current Medication List Current Medications: Active Medications Albuterol/Ipratropium (Duoneb -) 1 amp NEB RQID [facility] Last Admin: 02/25/19 20:10 Dose: 1 amp Ascorbic Acid (Vitamin C -) 500 mg PO BID [facility] Last Admin: 02/25/19 21:39 Dose: 500 mg Aspirin (Asa -) 81 mg PO DAILY [facility] Last Admin: 02/25/19 09:24 Dose: 81 mg Budesonide/Formoterol Fumarate (Symbicort 160/4.5mcg -) 2 puff IH DAILY [facility] Last Admin: 02/25/19 10:07 Dose: 2 puff Cholecalciferol (Vitamin D3 -) 4,000 unit PO DAILY [facility] Last Admin: 02/25/19 09:25 Dose: 4,000 unit Diltiazem HCl (Cardizem Cd -) 240 mg PO DAILY [facility] Last Admin: 02/25/19 09:24 Dose: 240 mg Famotidine (Pepcid -) 20 mg PO BID [facility] Last Admin: 02/25/19 21:39 Dose: 20 mg Heparin Sodium (Porcine) (Heparin -) 5,000 unit SQ BID [facility] Last Admin: 02/25/19 21:39 Dose: 5,000 unit Azithromycin (Zithromax 500mg Ivpb (Pre-Docked)) 500 mg in 250 mls @ 250 mls/ hr IVPB DAILY [facility] Last Admin: 02/25/19 10:07 Dose: 250 mls/hr Piperacillin Sod/Tazobactam (Sod 3.375 gm/ Dextrose) 50 mls @ 100 mls/hr IVPB Q8H-IV [facility]; Protocol Last Admin: 02/26/19 01:18 Dose: 100 mls/hr Methylprednisolone Sodium Succinate (Solu-Medrol -) 40 mg IVPUSH Q8H-IV [facility] Last Admin: 02/26/19 01:19 Dose: 40 mg Multivitamins/Minerals/Vitamin C (Tab-A-Vit -) 1 tab PO DAILY [facility] Last Admin: 02/25/19 09:25 Dose: 1 tab Sodium Chloride (Normal Saline -) 75 ml IV ONCE [facility] Last Admin: 02/24/19 14:20 Dose: 75 ml - Objective Vital Signs: Vital Signs Temperature 98.2 F 02/26/19 06:54 Pulse Rate 98 H 02/26/19 06:54 Respiratory Rate 20 02/26/19 06:54 Blood Pressure 171/86 H 02/26/19 06:54 O2 Sat by Pulse Oximetry (%) 91 L 02/26/19 06:54 Constitutional: Yes: Well Nourished, Calm Eyes: Yes: WNL HENT: Yes: WNL Neck: Yes: WNL Cardiovascular: Yes: Regular Rate and Rhythm, S1, S2 Respiratory: Yes: Wheezes (few scattered olaf wheezes) Gastrointestinal: Yes: Normal Bowel Sounds, Soft Extremities: Yes: WNL Edema: No Labs: CBC, BMP 02/25/19 07:05 02/25/19 07:05 INR, PTT INR 0.92 (0.83-1.09) 02/23/19 05:15 - ....Imaging Cat Scan: Report Reviewed, Image Reviewed Assessment/Plan Problem List - Problems (1) COPD exacerbation Code(s): J44.1 - CHRONIC OBSTRUCTIVE PULMONARY DISEASE W (ACUTE) EXACERBATION (2) Anemia Code(s): D64.9 - ANEMIA, UNSPECIFIED (3) Breast CA Code(s): C50.919 - MALIGNANT NEOPLASM OF UNSP SITE OF UNSPECIFIED FEMALE BREAST (4) Bronchitis Code(s): J40 - BRONCHITIS, NOT SPECIFIED ACUTE OR CHRONIC (5) CAD (coronary artery disease) Code(s): I25.10 - ATHSCL HEART DISEASE OF [place] CORONARY ARTERY W/O ANG PCTRS Qualifiers: Coronary Disease-Associated Artery/Lesion type: [place] artery [place] vs. transplanted heart: [place] heart Associated angina: without angina Qualified Code(s): I25.10 - Atherosclerotic heart disease of [place] coronary artery without angina pectoris (6) COPD (chronic obstructive pulmonary disease) Code(s): J44.9 - CHRONIC OBSTRUCTIVE PULMONARY DISEASE, UNSPECIFIED (7) Cough Code(s): R05 - COUGH (8) HLD (hyperlipidemia) Code(s): E78.5 - HYPERLIPIDEMIA, UNSPECIFIED Qualifiers: Hyperlipidemia type: mixed hyperlipidemia Qualified Code(s): E78.2 - Mixed hyperlipidemia (9) HTN (hypertension) Code(s): I10 - ESSENTIAL (PRIMARY) HYPERTENSION Qualifiers: (10) Macrocytic anemia Code(s): D53.9 - NUTRITIONAL ANEMIA, UNSPECIFIED (11) PSVT (paroxysmal supraventricular tachycardia) Code(s): I47.1 - SUPRAVENTRICULAR TACHYCARDIA 12 PNEUMONIA Assessment/Plan Medrol taper BD TX abx as per id O2 as needed Prior to DC, check pre and post ambulation O2 saturation Avoid LAMA (Spiriva given Duoneb) No smoking counseled VTE prophylaxis f/u chest ct 3 months outpatient pfts outpatient DR BEAL
[2019-02-26] MEDS: ALBUTEROL SO4 2.5/IPRATROPIUM 0.5 INH SOL 3 ML VIAL.NEB. NEB SCH ×4 (08:00→20:09)
[2019-02-26 08:17] LABS: HEMATOCRIT 34.7 % (32.4-45.2); HEMOGLOBIN 12.2 GM/dl (10.7-15.3); MCH 35.1 pg (25.7-33.7); MCHC 35.1 g/dl (32.0-36.0); MEAN CELL VOLUME 99.8 fl (80-96); MEAN PLT VOLUME 7.7 fl (7.5-11.1); PLATELET COUNT 155 K/MM3 (134-434); RBC 3.48 M/mm3 (3.60-5.2); RDW 12.9 % (11.6-15.6); WHITE BLOOD COUNT 10.5 K/mm3 (4.0-10.8)
[2019-02-26 08:33] LABS: ALBUMIN 2.9 g/dl (3.4-5.0); BILIRUBIN,TOTAL 0.8 mg/dl (0.2-1); CALCIUM 8.6 mg/dl (8.5-10); CREATININE 0.9 mg/dl (0.55-1.3); MAGNESIUM 1.8 mg/dL (1.8-2.4); POTASSIUM 4.4 mmol/L (3.5-5.1); TOT PROT 5.7 g/dl (6.4-8.2)
[2019-02-26] MEDS ORDERED: PT OWN MED DRAWER 7, Y5N ONE ×2 (09:07→20:12)
[2019-02-26] MEDS: HEPARIN NA (PORCINE) 5,000 UNITS/ML 1ML VIAL SQ SCH ×2 (09:16→22:10)
[2019-02-26] MEDS: MULTIVITAMINS (DAILY MVI) TABLET (FP) PO SCH (09:18)
[2019-02-26] MEDS: ASCORBIC ACID 500 MG TABLET (FP) PO SCH ×2 (09:18→22:10)
[2019-02-26] MEDS: CHOLECALCIFEROL (VIT D3) 1,000 UNIT (25 MCG) TABLET PO SCH (09:18)
[2019-02-26] MEDS: FAMOTIDINE 20 MG TABLET PO SCH ×2 (09:18→22:10)
[2019-02-26] MEDS: ASPIRIN 81 MG CHEWABLE TABLETS PO SCH (09:18)
[2019-02-26] MEDS: BUDESONIDE/FORMETEROL FUMARATE 160/4.5 mcg INHALER IH SCH (09:21)
[2019-02-26] MEDS: AZITHROMYCIN IVPB 500 MG/250 ML BAG IVPB SCH (09:21)
[2019-02-26 10:35] LABS: PLATELET ESTIMATE ADEQUATE
--- NOTE | 2019-02-26 12:11 | PN ---
Physical Exam: SUBJECTIVE: Patient seen and examined at beside. Getting a neb treatment. Says breathing is easier. OBJECTIVE: Vital Signs Period Temp Pulse Resp BP Sys/Prakash Pulse Ox Last 24 Hr 97.3 F-98.2 F 77-101 18-20 135-173/54-86 91-100 GENERAL: The patient is awake, alert, and fully oriented, mild respiratory distress with ambulation. Thin, frail, cachectic, protruding clavicles, absence of body fat LUNGS: Diminished breath sounds at bases, +accessory muscle use HEART: Regular rate and rhythm, S1, S2 ABDOMEN: Soft, nontender, nondistended EXTREMITIES: 2+ pulses, warm, well-perfused, no edema NEUROLOGICAL: Cranial nerves II through XII grossly intact. Normal speech, steady gait SKIN: Warm, dry; all four extremities with extensive eccyhmoses; lower ext: skin intact at graft sites Laboratory Results - last 24 hr 02/26/19 02/26/19 07:46 07:46 WBC 10.5 RBC 3.48 L Hgb 12.2 Hct 34.7 MCV 99.8 H MCH 35.1 H MCHC 35.1 RDW 12.9 Plt Count 155 MPV 7.7 Absolute Neuts (auto) 9.9 Neutrophils % No Result Required. Neutrophils % (Manual) 96.0 H* Lymphocytes % No Result Required. Lymphocytes % (Manual) 2.0 L Monocytes % (Manual) 2 L Platelet Estimate Adequate Sodium 139 Potassium 4.4 Chloride 105 Carbon Dioxide 27 Anion Gap 7 L BUN 29.0 H Creatinine 0.9 Est GFR (CKD-EPI)AfAm 71.48 Est GFR (CKD-EPI)NonAf 61.67 Random Glucose 164 H Calcium 8.6 Magnesium 1.8 Total Bilirubin 0.8 AST 48 H ALT 43 Alkaline Phosphatase 56 Total Protein 5.7 L Albumin 2.9 L Active Medications Generic Name Dose Route Start Last Admin Trade Name Freq PRN Reason Stop Dose Admin Albuterol/Ipratropium 1 amp 02/23/19 16:00 02/26/19 08:00 Duoneb - NEB 1 amp RQID [facility] Administration Ascorbic Acid 500 mg 02/23/19 22:00 02/26/19 09:18 Vitamin C - PO 500 mg BID [facility] Administration Aspirin 81 mg 02/23/19 12:15 02/26/19 09:18 Asa - PO 81 mg DAILY [facility] Administration Budesonide/Formoterol Fumarate 2 puff 02/24/19 10:00 02/26/19 09:21 Symbicort 160/4.5mcg - IH 2 puff DAILY [facility] Administration Cholecalciferol 4,000 unit 02/24/19 10:00 02/26/19 09:18 Vitamin D3 - PO 4,000 unit DAILY [facility] Administration Diltiazem HCl 240 mg 02/23/19 12:15 02/26/19 09:18 Cardizem Cd - PO 240 mg DAILY [facility] Administration Famotidine 20 mg 02/23/19 22:00 02/26/19 09:18 Pepcid - PO 20 mg BID [facility] Administration Heparin Sodium (Porcine) 5,000 unit 02/25/19 22:00 02/26/19 09:16 Heparin - SQ 5,000 unit BID [facility] Administration Azithromycin 500 mg in 250 mls @ 250 mls/hr 02/25/19 09:26 02/26/19 09:21 Zithromax 500mg Ivpb (Pre-Docked) IVPB 250 mls/hr DAILY [facility] Administration Piperacillin Sod/Tazobactam 50 mls @ 100 mls/hr 02/25/19 15:00 02/26/19 09:15 Sod 3.375 gm/ Dextrose IVPB 100 mls/hr Q8H-IV [facility] Administration Protocol Methylprednisolone Sodium Succinate 40 mg 02/23/19 18:00 02/26/19 09:15 Solu-Medrol - IVPUSH 40 mg Q8H-IV [facility] Administration Multivitamins/Minerals/Vitamin C 1 tab 02/24/19 10:00 02/26/19 09:18 Tab-A-Vit - PO 1 tab DAILY [facility] Administration Sodium Chloride 75 ml 02/24/19 12:30 02/24/19 14:20 Normal Saline - IV 75 ml ONCE [facility] Administration ASSESSMENT/PLAN 78 year-old female with a PMH significant for HTN, HLD, CAD s/p stent, diastolic heart failure, anemia of chronic disease, COPD current/recent smoker, breast cancer s/p lumpectomy and RXT 1999. Admitted for COPD exacerbation and likely pneumonia. Sepsis secondary to pneumonia --02/25 CT chest: small patchy RLL and RUL infiltrates; patchy density in lingula --afebrile for 24 hours, WBC trending down --continue Zosyn (day #2) --sputum culture pending --ID following Acute on chronic COPD exacerbation --intubated in August for severe COPD exacerbation --solumedrol 40mg q8h --duonebs, Symbicort --pre post --pulmonary following Vulvar cyst s/p excision x 1 week --right vulva, bandaid c/d/i, patient does not want removed so wound not visualized but no surrounding erythema, tenderness, fluctuance --completed course of Keflex, follow up with Dr. Lewis in one week Bilateral leg wounds s/p skin grafting in October 2018 --grafting sites well-healed, no sign of infection Diastolic heart failure --08/28/18 Echo: LV normal, EF 50%, Grade I diastolic dysfunction; RV normal; trace MR; mild AI --not on diuretics at home --appears euvolemic Coronary artery disease s/p stent --continue diltiazem, ASA Hypertension --BP stable --continue diltiazem Hyperlipidemia --not on statin Anemia of chronic disease --h/h stable Breast cancer --no acute issues Severe malnutrition --thin, frail, cachectic, protruding clavicles --absence of body fat --BMI 19 FEN Fluids: PO intake adequate Electrolytes: replete as indicated Nutrition: low sodium DVT prophylaxis: subq heparin Physical therapy Dispo: continues to require inpatient care. Full code. Visit type - Emergency Visit Emergency Visit: Yes ED Registration Date: 02/23/19 Care time: The patient presented to the Emergency Department on the above date and was hospitalized for further evaluation of their emergent condition. - New Patient This patient is new to me today: No - Critical Care Critical Care patient: No
--- NOTE | 2019-02-26 14:33 | PN ---
Progress Note, Physician History of Present Illness: patient feels tired breathing better says has dirrhoea - Current Medication List Current Medications: Active Medications Albuterol/Ipratropium (Duoneb -) 1 amp NEB RQID [facility] Last Admin: 02/26/19 13:00 Dose: 1 amp Ascorbic Acid (Vitamin C -) 500 mg PO BID [facility] Last Admin: 02/26/19 09:18 Dose: 500 mg Aspirin (Asa -) 81 mg PO DAILY [facility] Last Admin: 02/26/19 09:18 Dose: 81 mg Budesonide/Formoterol Fumarate (Symbicort 160/4.5mcg -) 2 puff IH DAILY [facility] Last Admin: 02/26/19 09:21 Dose: 2 puff Cholecalciferol (Vitamin D3 -) 4,000 unit PO DAILY [facility] Last Admin: 02/26/19 09:18 Dose: 4,000 unit Diltiazem HCl (Cardizem Cd -) 240 mg PO DAILY [facility] Last Admin: 02/26/19 09:18 Dose: 240 mg Famotidine (Pepcid -) 20 mg PO BID [facility] Last Admin: 02/26/19 09:18 Dose: 20 mg Heparin Sodium (Porcine) (Heparin -) 5,000 unit SQ BID [facility] Last Admin: 02/26/19 09:16 Dose: 5,000 unit Azithromycin (Zithromax 500mg Ivpb (Pre-Docked)) 500 mg in 250 mls @ 250 mls/ hr IVPB DAILY [facility] Last Admin: 02/26/19 09:21 Dose: 250 mls/hr Piperacillin Sod/Tazobactam (Sod 3.375 gm/ Dextrose) 50 mls @ 100 mls/hr IVPB Q8H-IV [facility]; Protocol Last Admin: 02/26/19 09:15 Dose: 100 mls/hr Methylprednisolone Sodium Succinate (Solu-Medrol -) 40 mg IVPUSH Q8H-IV [facility] Last Admin: 02/26/19 09:15 Dose: 40 mg Multivitamins/Minerals/Vitamin C (Tab-A-Vit -) 1 tab PO DAILY [facility] Last Admin: 02/26/19 09:18 Dose: 1 tab Sodium Chloride (Normal Saline -) 75 ml IV ONCE [facility] Last Admin: 02/24/19 14:20 Dose: 75 ml - Objective Vital Signs: Vital Signs Temperature 97.7 F 02/26/19 08:07 Pulse Rate 77 02/26/19 08:07 Respiratory Rate 18 02/26/19 08:46 Blood Pressure 152/61 02/26/19 08:07 O2 Sat by Pulse Oximetry (%) 92 L 02/26/19 08:46 Constitutional: Yes: No Distress, Calm Respiratory: Yes: Poor Air Entry, Other Gastrointestinal: Yes: Normal Bowel Sounds, Soft Musculoskeletal: Yes: WNL Extremities: Yes: WNL Neurological: Yes: Alert, Oriented Psychiatric: Yes: Alert, Oriented Labs: CBC, BMP 02/26/19 07:46 02/26/19 07:46 INR, PTT INR 0.92 (0.83-1.09) 02/23/19 05:15 Assessment/Plan Assessment/Plan Problem List - Problems (1) COPD exacerbation Code(s): J44.1 - CHRONIC OBSTRUCTIVE PULMONARY DISEASE W (ACUTE) EXACERBATION (2) Anemia Code(s): D64.9 - ANEMIA, UNSPECIFIED (3) Breast CA Code(s): C50.919 - MALIGNANT NEOPLASM OF UNSP SITE OF UNSPECIFIED FEMALE BREAST (4) Bronchitis Code(s): J40 - BRONCHITIS, NOT SPECIFIED ACUTE OR CHRONIC (5) CAD (coronary artery disease) Code(s): I25.10 - ATHSCL HEART DISEASE OF [place] CORONARY ARTERY W/O ANG PCTRS Qualifiers: Coronary Disease-Associated Artery/Lesion type: [place] artery [place] vs. transplanted heart: [place] heart Associated angina: without angina Qualified Code(s): I25.10 - Atherosclerotic heart disease of [place] coronary artery without angina pectoris (6) COPD (chronic obstructive pulmonary disease) Code(s): J44.9 - CHRONIC OBSTRUCTIVE PULMONARY DISEASE, UNSPECIFIED (7) Cough Code(s): R05 - COUGH (8) HLD (hyperlipidemia) Code(s): E78.5 - HYPERLIPIDEMIA, UNSPECIFIED Qualifiers: Hyperlipidemia type: mixed hyperlipidemia Qualified Code(s): E78.2 - Mixed hyperlipidemia (9) HTN (hypertension) Code(s): I10 - ESSENTIAL (PRIMARY) HYPERTENSION Qualifiers: (10) Macrocytic anemia Code(s): D53.9 - NUTRITIONAL ANEMIA, UNSPECIFIED (11) PSVT (paroxysmal supraventricular tachycardia) Code(s): I47.1 - SUPRAVENTRICULAR TACHYCARDIA 12 PNEUMONIA Assessment/Plan continue abx if dirrhoea worsens send for cdiff monitor fevers await for sputum cx rest as per the team
[2019-02-27] MEDS ORDERED: DEXTROSE 5%-WATER - 50 ML IVPB ONE ×3 (02:56→17:00)
[2019-02-27] MEDS ORDERED: PIPERACILLIN/TAZOBACTAM 3.375 GM VIAL IVPB ONE ×3 (02:56→16:59)
[2019-02-27] MEDS: PIPERACILLIN/TAZOB 3.375 GM 3.375 GM in DEXTROSE 5%-WATER - 50 ML IVPB SCH ×3 (02:58→17:23)
[2019-02-27] MEDS: methylPREDNISolone NA SUCC 40 MG/1 ML VIAL IVPUSH SCH ×3 (02:58→21:53)
[2019-02-27] MEDS: ALBUTEROL SO4 2.5/IPRATROPIUM 0.5 INH SOL 3 ML VIAL.NEB. NEB SCH ×4 (08:00→20:34)
[2019-02-27] MEDS: ASPIRIN 81 MG CHEWABLE TABLETS PO SCH (09:42)
[2019-02-27] MEDS: HEPARIN NA (PORCINE) 5,000 UNITS/ML 1ML VIAL SQ SCH ×2 (09:43→21:53)
[2019-02-27] MEDS: FAMOTIDINE 20 MG TABLET PO SCH ×2 (09:43→21:53)
[2019-02-27] MEDS: AZITHROMYCIN IVPB 500 MG/250 ML BAG IVPB SCH (09:44)
[2019-02-27] MEDS: MULTIVITAMINS (DAILY MVI) TABLET (FP) PO SCH (09:44)
[2019-02-27] MEDS: BUDESONIDE/FORMETEROL FUMARATE 160/4.5 mcg INHALER IH SCH (09:44)
[2019-02-27] MEDS: ASCORBIC ACID 500 MG TABLET (FP) PO SCH ×2 (09:44→21:53)
--- NOTE | 2019-02-27 12:17 | PN ---
Progress Note, Physician History of Present Illness: stable says she is doing well sputum positive awaiting for identification of organism - Current Medication List Current Medications: Active Medications Albuterol/Ipratropium (Duoneb -) 1 amp NEB RQID [facility] Last Admin: 02/27/19 08:00 Dose: 1 amp Ascorbic Acid (Vitamin C -) 500 mg PO BID [facility] Last Admin: 02/27/19 09:44 Dose: 500 mg Aspirin (Asa -) 81 mg PO DAILY [facility] Last Admin: 02/27/19 09:42 Dose: 81 mg Budesonide/Formoterol Fumarate (Symbicort 160/4.5mcg -) 2 puff IH DAILY [facility] Last Admin: 02/27/19 09:44 Dose: 2 puff Cholecalciferol (Vitamin D3 -) 4,000 unit PO DAILY [facility] Last Admin: 02/26/19 09:18 Dose: 4,000 unit Diltiazem HCl (Cardizem Cd -) 240 mg PO DAILY [facility] Last Admin: 02/27/19 09:43 Dose: 240 mg Famotidine (Pepcid -) 20 mg PO BID [facility] Last Admin: 02/27/19 09:43 Dose: Not Given Heparin Sodium (Porcine) (Heparin -) 5,000 unit SQ BID [facility] Last Admin: 02/27/19 09:43 Dose: 5,000 unit Azithromycin (Zithromax 500mg Ivpb (Pre-Docked)) 500 mg in 250 mls @ 250 mls/ hr IVPB DAILY [facility] Last Admin: 02/27/19 09:44 Dose: 250 mls/hr Piperacillin Sod/Tazobactam (Sod 3.375 gm/ Dextrose) 50 mls @ 100 mls/hr IVPB Q8H-IV [facility]; Protocol Last Admin: 02/27/19 09:44 Dose: 100 mls/hr Methylprednisolone Sodium Succinate (Solu-Medrol -) 40 mg IVPUSH Q8H-IV [facility] Last Admin: 02/27/19 09:44 Dose: 40 mg Multivitamins/Minerals/Vitamin C (Tab-A-Vit -) 1 tab PO DAILY [facility] Last Admin: 02/27/19 09:44 Dose: 1 tab Sodium Chloride (Normal Saline -) 75 ml IV ONCE [facility] Last Admin: 02/24/19 14:20 Dose: 75 ml - Objective Vital Signs: Vital Signs Temperature 98.7 F 02/27/19 10:00 Pulse Rate 84 02/27/19 10:00 Respiratory Rate 20 02/27/19 10:00 Blood Pressure 158/63 02/27/19 10:00 O2 Sat by Pulse Oximetry (%) 90 L 02/27/19 07:02 Constitutional: Yes: Calm, Thin Cardiovascular: Yes: Regular Rate and Rhythm Respiratory: Yes: Regular, Rhonchi Gastrointestinal: Yes: Normal Bowel Sounds, Soft Musculoskeletal: Yes: WNL Extremities: Yes: WNL Neurological: Yes: Alert, Oriented Psychiatric: Yes: Alert, Oriented Labs: CBC, BMP 02/26/19 07:46 02/26/19 07:46 INR, PTT INR 0.92 (0.83-1.09) 02/23/19 05:15 Assessment/Plan Assessment/Plan Problem List - Problems (1) COPD exacerbation Code(s): J44.1 - CHRONIC OBSTRUCTIVE PULMONARY DISEASE W (ACUTE) EXACERBATION (2) Anemia Code(s): D64.9 - ANEMIA, UNSPECIFIED (3) Breast CA Code(s): C50.919 - MALIGNANT NEOPLASM OF UNSP SITE OF UNSPECIFIED FEMALE BREAST (4) Bronchitis Code(s): J40 - BRONCHITIS, NOT SPECIFIED ACUTE OR CHRONIC (5) CAD (coronary artery disease) Code(s): I25.10 - ATHSCL HEART DISEASE OF [place] CORONARY ARTERY W/O ANG PCTRS Qualifiers: Coronary Disease-Associated Artery/Lesion type: [place] artery [place] vs. transplanted heart: [place] heart Associated angina: without angina Qualified Code(s): I25.10 - Atherosclerotic heart disease of [place] coronary artery without angina pectoris (6) COPD (chronic obstructive pulmonary disease) Code(s): J44.9 - CHRONIC OBSTRUCTIVE PULMONARY DISEASE, UNSPECIFIED (7) Cough Code(s): R05 - COUGH (8) HLD (hyperlipidemia) Code(s): E78.5 - HYPERLIPIDEMIA, UNSPECIFIED Qualifiers: Hyperlipidemia type: mixed hyperlipidemia Qualified Code(s): E78.2 - Mixed hyperlipidemia (9) HTN (hypertension) Code(s): I10 - ESSENTIAL (PRIMARY) HYPERTENSION Qualifiers: (10) Macrocytic anemia Code(s): D53.9 - NUTRITIONAL ANEMIA, UNSPECIFIED (11) PSVT (paroxysmal supraventricular tachycardia) Code(s): I47.1 - SUPRAVENTRICULAR TACHYCARDIA 12 PNEUMONIA Assessment/Plan continue abx await for finalization of the cx rest as per the team incentive lashawn
--- NOTE | 2019-02-27 12:33 | PN ---
Progress Note (short form) - Note Progress Note: PULMONARY VSS/AFEBRILE FEELS IMPROVED DRESSED AND WAITING TO BE DISCHARGED VSS/AFEBRILE ANICTERIC DIMINISHED B/L BREATH SOUNDS S1S2 BS+ NO EDEMA LABS/MEDS/IMAGES REVIEWED Problem List - Problems (1) COPD exacerbation Code(s): J44.1 - CHRONIC OBSTRUCTIVE PULMONARY DISEASE W (ACUTE) EXACERBATION (2) Anemia Code(s): D64.9 - ANEMIA, UNSPECIFIED (3) Breast CA Code(s): C50.919 - MALIGNANT NEOPLASM OF UNSP SITE OF UNSPECIFIED FEMALE BREAST (4) Bronchitis Code(s): J40 - BRONCHITIS, NOT SPECIFIED ACUTE OR CHRONIC (5) CAD (coronary artery disease) Code(s): I25.10 - ATHSCL HEART DISEASE OF [place] CORONARY ARTERY W/O ANG PCTRS Qualifiers: Coronary Disease-Associated Artery/Lesion type: [place] artery [place] vs. transplanted heart: [place] heart Associated angina: without angina Qualified Code(s): I25.10 - Atherosclerotic heart disease of [place] coronary artery without angina pectoris (6) COPD (chronic obstructive pulmonary disease) Code(s): J44.9 - CHRONIC OBSTRUCTIVE PULMONARY DISEASE, UNSPECIFIED (7) Cough Code(s): R05 - COUGH (8) HLD (hyperlipidemia) Code(s): E78.5 - HYPERLIPIDEMIA, UNSPECIFIED Qualifiers: Hyperlipidemia type: mixed hyperlipidemia Qualified Code(s): E78.2 - Mixed hyperlipidemia (9) HTN (hypertension) Code(s): I10 - ESSENTIAL (PRIMARY) HYPERTENSION Qualifiers: (10) Macrocytic anemia Code(s): D53.9 - NUTRITIONAL ANEMIA, UNSPECIFIED (11) PSVT (paroxysmal supraventricular tachycardia) Code(s): I47.1 - SUPRAVENTRICULAR TACHYCARDIA Medrol to be tapered BD TX O2 as needed check pre and post ambulation O2 saturation No smoking counseled VTE prophylaxis Rukhsana SAUCEDO MD
--- NOTE | 2019-02-27 15:10 | PN ---
Physical Exam: SUBJECTIVE: Patient seen and examined oob to chair. OBJECTIVE: Vital Signs Period Temp Pulse Resp BP Sys/Prakash Pulse Ox Last 24 Hr 97.5 F-98.7 F 80-95 17-20 158-185/58-72 90-92 GENERAL: The patient is awake, alert, and fully oriented, mild respiratory distress with ambulation. Thin, frail, cachectic, protruding clavicles, absence of body fat LUNGS: CTA HEART: Regular rate and rhythm, S1, S2 ABDOMEN: Soft, nontender, nondistended EXTREMITIES: 2+ pulses, warm, well-perfused, no edema NEUROLOGICAL: Cranial nerves II through XII grossly intact. Normal speech, steady gait Active Medications Generic Name Dose Route Start Last Admin Trade Name Freq PRN Reason Stop Dose Admin Albuterol/Ipratropium 1 amp 02/23/19 16:00 02/27/19 08:00 Duoneb - NEB 1 amp RQID [facility] Administration Ascorbic Acid 500 mg 02/23/19 22:00 02/27/19 09:44 Vitamin C - PO 500 mg BID [facility] Administration Aspirin 81 mg 02/23/19 12:15 02/27/19 09:42 Asa - PO 81 mg DAILY [facility] Administration Budesonide/Formoterol Fumarate 2 puff 02/24/19 10:00 02/27/19 09:44 Symbicort 160/4.5mcg - IH 2 puff DAILY [facility] Administration Cholecalciferol 4,000 unit 02/24/19 10:00 02/26/19 09:18 Vitamin D3 - PO 4,000 unit DAILY [facility] Administration Diltiazem HCl 240 mg 02/23/19 12:15 02/27/19 09:43 Cardizem Cd - PO 240 mg DAILY [facility] Administration Famotidine 20 mg 02/23/19 22:00 02/27/19 09:43 Pepcid - PO Not Given BID [facility] Heparin Sodium (Porcine) 5,000 unit 02/25/19 22:00 02/27/19 09:43 Heparin - SQ 5,000 unit BID [facility] Administration Azithromycin 500 mg in 250 mls @ 250 mls/hr 02/25/19 09:26 02/27/19 09:44 Zithromax 500mg Ivpb (Pre-Docked) IVPB 250 mls/hr DAILY [facility] Administration Piperacillin Sod/Tazobactam 50 mls @ 100 mls/hr 02/25/19 15:00 02/27/19 09:44 Sod 3.375 gm/ Dextrose IVPB 100 mls/hr Q8H-IV [facility] Administration Protocol Methylprednisolone Sodium Succinate 40 mg 02/23/19 18:00 02/27/19 09:44 Solu-Medrol - IVPUSH 40 mg Q8H-IV [facility] Administration Multivitamins/Minerals/Vitamin C 1 tab 02/24/19 10:00 02/27/19 09:44 Tab-A-Vit - PO 1 tab DAILY [facility] Administration Sodium Chloride 75 ml 02/24/19 12:30 02/24/19 14:20 Normal Saline - IV 75 ml ONCE [facility] Administration ASSESSMENT/PLAN: 78 year-old female with a PMH significant for HTN, HLD, CAD s/p stent, diastolic heart failure, anemia of chronic disease, COPD current/recent smoker, breast cancer s/p lumpectomy and RXT 1999. Admitted for COPD exacerbation and pneumonia. Recently intubated. Sepsis secondary to community-acquired pneumonia --02/25 CT chest: small patchy RLL and RUL infiltrates; patchy density in lingula --afebrile for 24 hours, WBC wnl --sputum culture (+) NLRGNB --continue Zosyn (day #3) --ID following Acute on chronic COPD exacerbation --tapering IV steroids --duonebs, Symbicort --02/27 pre post: 91% at rest and with flat surface walking on room air --pulmonary following Vulvar cyst s/p excision x 1 week --completed course of Keflex, follow up with Dr. Lewis in one week Bilateral leg wounds s/p skin grafting in October 2018 --grafting sites well-healed, no sign of infection Diastolic heart failure --08/28/18 Echo: LV normal, EF 50%, Grade I diastolic dysfunction; RV normal; trace MR; mild AI --not on diuretics at home --appears euvolemic Coronary artery disease s/p stent --continue diltiazem, ASA Hypertension --BP stable --continue diltiazem Hyperlipidemia --not on statin Anemia of chronic disease --h/h stable Breast cancer --no acute issues Severe malnutrition --thin, frail, cachectic, protruding clavicles --absence of body fat --BMI 19 FEN Fluids: PO intake adequate Electrolytes: replete as indicated Nutrition: low sodium DVT prophylaxis: subq heparin Physical therapy Dispo: continues to require inpatient care. Full code. Visit type - Emergency Visit Emergency Visit: Yes ED Registration Date: 02/23/19 Care time: The patient presented to the Emergency Department on the above date and was hospitalized for further evaluation of their emergent condition. - New Patient This patient is new to me today: No - Critical Care Critical Care patient: No
[2019-02-28] MEDS ORDERED: PIPERACILLIN/TAZOBACTAM 3.375 GM VIAL IVPB ONE ×2 (00:36→09:20)
[2019-02-28] MEDS ORDERED: DEXTROSE 5%-WATER - 50 ML IVPB ONE ×2 (00:37→09:20)
[2019-02-28] MEDS: PIPERACILLIN/TAZOB 3.375 GM 3.375 GM in DEXTROSE 5%-WATER - 50 ML IVPB SCH ×2 (01:12→09:27)
--- NOTE | 2019-02-28 07:12 | PN ---
Progress Note, Physician History of Present Illness: pulmonary alert,no distress dyspnea improved - Current Medication List Current Medications: Active Medications Albuterol/Ipratropium (Duoneb -) 1 amp NEB RQID [facility] Last Admin: 02/27/19 20:34 Dose: 1 amp Ascorbic Acid (Vitamin C -) 500 mg PO BID [facility] Last Admin: 02/27/19 21:53 Dose: 500 mg Aspirin (Asa -) 81 mg PO DAILY [facility] Last Admin: 02/27/19 09:42 Dose: 81 mg Budesonide/Formoterol Fumarate (Symbicort 160/4.5mcg -) 2 puff IH DAILY [facility] Last Admin: 02/27/19 09:44 Dose: 2 puff Cholecalciferol (Vitamin D3 -) 4,000 unit PO DAILY [facility] Last Admin: 02/26/19 09:18 Dose: 4,000 unit Diltiazem HCl (Cardizem Cd -) 240 mg PO DAILY [facility] Last Admin: 02/27/19 09:43 Dose: 240 mg Famotidine (Pepcid -) 20 mg PO BID [facility] Last Admin: 02/27/19 21:53 Dose: 20 mg Heparin Sodium (Porcine) (Heparin -) 5,000 unit SQ BID [facility] Last Admin: 02/27/19 21:53 Dose: 5,000 unit Piperacillin Sod/Tazobactam (Sod 3.375 gm/ Dextrose) 50 mls @ 100 mls/hr IVPB Q8H-IV [facility]; Protocol Last Admin: 02/28/19 01:12 Dose: 100 mls/hr Methylprednisolone Sodium Succinate (Solu-Medrol -) 40 mg IVPUSH Q12H [facility] Last Admin: 02/27/19 21:53 Dose: 40 mg Multivitamins/Minerals/Vitamin C (Tab-A-Vit -) 1 tab PO DAILY [facility] Last Admin: 02/27/19 09:44 Dose: 1 tab Sodium Chloride (Normal Saline -) 75 ml IV ONCE [facility] Last Admin: 02/24/19 14:20 Dose: 75 ml - Objective Vital Signs: Vital Signs Temperature 97.9 F 02/27/19 22:29 Pulse Rate 90 02/27/19 22:29 Respiratory Rate 20 02/27/19 22:29 Blood Pressure 159/77 02/27/19 22:29 O2 Sat by Pulse Oximetry (%) 90 L 02/27/19 22:29 Constitutional: Yes: Well Nourished, Calm Eyes: Yes: WNL HENT: Yes: WNL Neck: Yes: WNL Cardiovascular: Yes: Regular Rate and Rhythm, S1, S2 Respiratory: Yes: Wheezes (few scattered wheezes) Gastrointestinal: Yes: Normal Bowel Sounds, Soft Extremities: Yes: WNL Edema: No Labs: CBC, BMP 02/26/19 07:46 Assessment/Plan Problem List - Problems (1) COPD exacerbation Code(s): J44.1 - CHRONIC OBSTRUCTIVE PULMONARY DISEASE W (ACUTE) EXACERBATION (2) Anemia Code(s): D64.9 - ANEMIA, UNSPECIFIED (3) Breast CA Code(s): C50.919 - MALIGNANT NEOPLASM OF UNSP SITE OF UNSPECIFIED FEMALE BREAST (4) Bronchitis Code(s): J40 - BRONCHITIS, NOT SPECIFIED ACUTE OR CHRONIC (5) CAD (coronary artery disease) Code(s): I25.10 - ATHSCL HEART DISEASE OF [place] CORONARY ARTERY W/O ANG PCTRS Qualifiers: Coronary Disease-Associated Artery/Lesion type: [place] artery [place] vs. transplanted heart: tribe heart Associated angina: without angina Qualified Code(s): I25.10 - Atherosclerotic heart disease of [place] coronary artery without angina pectoris (6) COPD (chronic obstructive pulmonary disease) Code(s): J44.9 - CHRONIC OBSTRUCTIVE PULMONARY DISEASE, UNSPECIFIED (7) Cough Code(s): R05 - COUGH (8) HLD (hyperlipidemia) Code(s): E78.5 - HYPERLIPIDEMIA, UNSPECIFIED Qualifiers: Hyperlipidemia type: mixed hyperlipidemia Qualified Code(s): E78.2 - Mixed hyperlipidemia (9) HTN (hypertension) Code(s): I10 - ESSENTIAL (PRIMARY) HYPERTENSION Qualifiers: (10) Macrocytic anemia Code(s): D53.9 - NUTRITIONAL ANEMIA, UNSPECIFIED (11) PSVT (paroxysmal supraventricular tachycardia) Code(s): I47.1 - SUPRAVENTRICULAR TACHYCARDIA 12 PNEUMONIA Assessment/Plan prednisone 40mg daily with taper INHALED BRONCHODILATORS No smoking counseled VTE prophylaxis f/u chest ct 3 months outpatient pfts outpatient DR BEAL
[2019-02-28 07:22] VITALS: TEMP 98
[2019-02-28] MEDS ORDERED: PT OWN MED DRAWER 7, Y5N ONE (09:20)
[2019-02-28] MEDS: ALBUTEROL SO4 2.5/IPRATROPIUM 0.5 INH SOL 3 ML VIAL.NEB. NEB SCH ×2 (09:24→11:29)
[2019-02-28] MEDS: BUDESONIDE/FORMETEROL FUMARATE 160/4.5 mcg INHALER IH SCH (09:35)
[2019-02-28] MEDS: ASPIRIN 81 MG CHEWABLE TABLETS PO SCH (09:35)
[2019-02-28] MEDS: FAMOTIDINE 20 MG TABLET PO SCH (09:36)
[2019-02-28] MEDS: MULTIVITAMINS (DAILY MVI) TABLET (FP) PO SCH (09:36)
[2019-02-28] MEDS: HEPARIN NA (PORCINE) 5,000 UNITS/ML 1ML VIAL SQ SCH (09:36)
[2019-02-28] MEDS: ASCORBIC ACID 500 MG TABLET (FP) PO SCH (09:36)
[2019-02-28 09:42] VITALS: BP 154/78; PULSE 107
[2019-02-28] MEDS: CHOLECALCIFEROL (VIT D3) 1,000 UNIT (25 MCG) TABLET PO SCH (10:02)
[2019-02-28] MEDS: methylPREDNISolone NA SUCC 40 MG/1 ML VIAL IVPUSH SCH (10:02)
--- NOTE | 2019-02-28 10:57 | DS ---
Physical Exam: SUBJECTIVE: Patient seen and examined OBJECTIVE: Vital Signs Period Temp Pulse Resp BP Sys/Prakash Pulse Ox Last 24 Hr 97.5 F-98.0 F 72-107 18-20 149-161/64-96 90-94 PHYSICAL EXAM GENERAL: The patient is awake, alert, and fully oriented. Thin, frail, cachectic , protruding clavicles, absence of body fat LUNGS: CTA HEART: Regular rate and rhythm, S1, S2 ABDOMEN: Soft, nontender, nondistended EXTREMITIES: 2+ pulses, warm, well-perfused, no edema NEUROLOGICAL: Cranial nerves II through XII grossly intact. Normal speech, steady gait LABS CBCD WBC 10.5 K/mm3 (4.0-10.8) 02/26/19 07:46 RBC 3.48 M/mm3 (3.60-5.2) L 02/26/19 07:46 Hgb 12.2 GM/dl (10.7-15.3) 02/26/19 07:46 Hct 34.7 % (32.4-45.2) 02/26/19 07:46 MCV 99.8 fl (80-96) H 02/26/19 07:46 MCHC 35.1 g/dl (32.0-36.0) 02/26/19 07:46 RDW 12.9 % (11.6-15.6) 02/26/19 07:46 Plt Count 155 K/MM3 (134-434) 02/26/19 07:46 MPV 7.7 fl (7.5-11.1) 02/26/19 07:46 CMP Sodium 139 mmol/L (136-145) 02/26/19 07:46 Potassium 4.4 mmol/L (3.5-5.1) 02/26/19 07:46 Chloride 105 mmol/L (98-107) 02/26/19 07:46 Carbon Dioxide 27 mmol/L (21-32) 02/26/19 07:46 Anion Gap 7 MMOL/L (8-16) L 02/26/19 07:46 BUN 29.0 mg/dl (7-18) H 02/26/19 07:46 Creatinine 0.9 mg/dl (0.55-1.3) 02/26/19 07:46 Calcium 8.6 mg/dl (8.5-10) 02/26/19 07:46 Total Bilirubin 0.8 mg/dl (0.2-1) 02/26/19 07:46 AST 48 U/L (15-37) H 02/26/19 07:46 ALT 43 U/L (13-61) 02/26/19 07:46 Alkaline Phosphatase 56 U/L (45-117) 02/26/19 07:46 Total Protein 5.7 g/dl (6.4-8.2) L 02/26/19 07:46 Albumin 2.9 g/dl (3.4-5.0) L 02/26/19 07:46 HOSPITAL COURSE: Date of Admission:02/23/19 Date of Discharge: 02/28/19 Pre hospital course This is a 78 year-old female with a PMH significant for HTN, HLD, CAD s/p stent , diastolic heart failure, breast cancer (Stage 1, RT, 1999), and a vaginal cust rupture. Presented to the ED complaining of sob and sore throat for 2 days. Pt reports that woke up this morning with chills, Temp on 99.8, dry cough , sob and sore throat. Pt denies cp, palpitations, abdominal pain, N/V/D or urinary symptoms. In ER, pt found to be wheezing, coughing,tachypneic, tachycardic, Temp 101.9 and BP 186/80. Pt received Duonebs,,IVF, Tylenol with improvement. Cultures sent in Er. Of note, pt was admitted from 08/26/18 to 09/13 with Acute hypoxic hypercapnic respiratory failure secondary to pulmonary edema vs COPD exacerbation and pt was intubated at that time. ER course (1) Temp 101.9,wbc 6.6, Trop neg (2) CXR: no acute lung pathology Subsequent hospital course 78 year-old female with a PMH significant for HTN, HLD, CAD s/p stent, diastolic heart failure, anemia of chronic disease, COPD current/recent smoker, breast cancer s/p lumpectomy and RXT 1999. Admitted for COPD exacerbation and pneumonia. Sepsis secondary to Pseudomonas pneumonia Pseudomonas UTI --fever to 101.9 in ED, WBC 12.2k, lactic acid wnl --02/25 CT chest: small patchy RLL and RUL infiltrates; patchy density in lingula --sputum culture and urine cultures (+) pseudomonas --treated with Zosyn; discharged on levofloxacin for another 7 days of treatment --treated with IV steroids, discharged on PO taper Acute on chronic COPD exacerbation --tapering steroids --continued duonebs, Symbicort --02/27 pre post: 91% at rest and with flat surface walking on room air Vulvar cyst s/p excision x 1 week --completed course of Keflex prior to admission, follow up with Dr. Lewis in one week Bilateral leg wounds s/p skin grafting in October 2018 --grafting sites well-healed, no sign of infection Diastolic heart failure --08/28/18 Echo: LV normal, EF 50%, Grade I diastolic dysfunction; RV normal; trace MR; mild AI --appeared euvolemic, no diuretics Coronary artery disease s/p stent --continued diltiazem, ASA Hypertension --BP stable --continued diltiazem Hyperlipidemia --not on statin Anemia of chronic disease --h/h stable Breast cancer --no acute issues Severe malnutrition --thin, frail, cachectic, protruding clavicles --absence of body fat --BMI 19 Minutes to complete discharge: 35 Discharge Summary Reason For Visit: SOB W/Wheezing Current Active Problems COPD exacerbation (Acute) Condition: Improved - Instructions Diet, Activity, Other Instructions: Two prescriptions have been sent to your pharmacy. One is for levofloxacin which is an antibiotic, and the other is for prednisone. Take these medications as directed and be sure to finish all the medication. You should follow up with Dr. Weaver within one week of your discharge. You should also follow up with Dr. Quintana. You will need a repeat CT scan of your chest in 3 months. Referrals: Buddy Weaver MD [Staff Physician] - Disposition: HOME - Home Medications Comprehensive Discharge Medication List: Ambulatory Orders Aspirin [ASA -] 81 mg PO DAILY 02/23/17 Tiotropium [employer] [Spiriva Respimat] 2 puff IH DAILY inhaler 09/13/18 Ascorbic Acid [Vitamin C -] 500 mg PO BID #60 tablet 10/24/18 Multivitamins [Multivit ([facility] Formulary)] 1 tab PO DAILY #30 tab 10/24/18 Budesonide/Formeterol Fumarate [SYMBICORT 160/4.5mcg -] 2 puff IH DAILY Cholecalciferol (Vitamin D3) [Vitamin D3 -] 4,000 unit PO DAILY 02/15/19 Cephalexin [Keflex] 500 mg PO BID 5 Days #10 capsule 02/18/19 Diltiazem Cd [Cardizem Cd -] 240 mg PO DAILY 02/18/19 This patient is new to me today: No Emergency Visit: Yes ED Registration Date: 02/23/19 Care time: The patient presented to the Emergency Department on the above date and was hospitalized for further evaluation of their emergent condition. Critical Care patient: No - Discharge Referral Referred to [facility] Yes Physician Referral: Buddy Weaver MD (Int Med)
[2019-02-28] MEDS ORDERED: predniSONE 20 MG TABLET (UD) PO ONE (11:02)
== END 2019-02-28 11:30 | disposition home or self-care (01) | DRG 871 ==
LOC: FER 04:25 → FM/S 11:53
PROVIDERS: ADMIT Internal Medicine; ATTEND Nurse Practitioner Acute Care
PROC: 3E0F7GC Introduction of Other Therapeutic Substance into Respiratory Tract, Via Natural or Artificial Opening (ICD-10-PCS; principal; 2019-02-23)
DX: A41.9 Sepsis, unspecified organism (principal); E43 Unspecified severe protein-calorie malnutrition; J18.9 Pneumonia, unspecified organism; J44.1 Chronic obstructive pulmonary disease with (acute) exacerbation; R64 Cachexia; Z68.1 Body mass index [BMI] 19.9 or less, adult; I50.32 Chronic diastolic (congestive) heart failure; I47.1 Supraventricular tachycardia; I11.0 Hypertensive heart disease with heart failure; E78.5 Hyperlipidemia, unspecified; D53.9 Nutritional anemia, unspecified; D63.8 Anemia in other chronic diseases classified elsewhere; I25.10 Atherosclerotic heart disease of native coronary artery without angina pectoris; Z85.3 Personal history of malignant neoplasm of breast; Z95.5 Presence of coronary angioplasty implant and graft; Z96.643 Presence of artificial hip joint, bilateral; Z86.010 Personal history of colon polyps; F17.210 Nicotine dependence, cigarettes, uncomplicated
CPT/HCPCS: 36415; 71045-TC-FY; 71250-TC; 80053; 81003; 82550; 82803; 83605; 83735; 84484; 85025; 85610; 85730; 87040; 87070; 87086; 87186; 87205; 87880; 93005; 94640; 99285-25; J1644; J7030

== ENCOUNTER 2020-05-25 07:53 | Day surgery (SDC) | payer OTHER, MEDICARE ==
[2020-05-25 08:55] VITALS: BMI 19.9
[2020-05-25] MEDS ORDERED: PROPOFOL 20 ML ONE ×3 (09:07)
[2020-05-25 13:50] VITALS: TEMP 98.4
[2020-05-25 13:52] VITALS: PULSE 93
[2020-05-25 13:59] VITALS: BP 128/65
== END 2020-05-25 10:25 | disposition home or self-care (01) ==
LOC: FASU-ENDO 07:53
PROVIDERS: ATTEND Internal Medicine Gastroenterology
PROC: 0DBP8ZX Excision of Rectum, Via Natural or Artificial Opening Endoscopic, Diagnostic (ICD-10-PCS; principal; 2020-05-25 09:20)
DX: Z09 Encounter for follow-up examination after completed treatment for conditions other than malignant neoplasm (principal); Z86.010 Personal history of colon polyps; K57.30 Diverticulosis of large intestine without perforation or abscess without bleeding; K62.1 Rectal polyp
CPT/HCPCS: 88305-TC

== ENCOUNTER 2020-06-26 10:06 | Emergency (ER) | payer OTHER, MEDICARE ==
[2020-06-26 10:19] VITALS: BP 187/87; PULSE 113; TEMP 98.5; BMI 20.1
== END 2020-06-26 12:04 | disposition left against medical advice (07) ==
LOC: FER 10:06
DX: R09.02 Hypoxemia (principal); R00.0 Tachycardia, unspecified; M25.532 Pain in left wrist
CPT/HCPCS: 73110-TC-LT-FY; 73130-TC-LT-FY; 93005; 99284-25

== ENCOUNTER 2020-12-16 15:01 | Emergency (ER) | payer OTHER, MEDICARE ==
[2020-12-16 15:11] VITALS: BP 142/68; PULSE 98; TEMP 98; BMI 18.0
[2020-12-16 16:07] LABS: HEMATOCRIT 39.1 % (32.4-45.2); HEMOGLOBIN 12.9 GM/dl (10.7-15.3); MCH 33.7 pg (25.7-33.7); MCHC 33.1 g/dl (32.0-36.0); MEAN CELL VOLUME 101.7 fl (80-96); MEAN PLT VOLUME 7.5 fl (7.5-11.1); PLATELET COUNT 373 K/MM3 (134-434); RBC 3.84 M/mm3 (3.60-5.2); RDW 12.9 % (11.6-15.6); WHITE BLOOD COUNT 14.1 K/mm3 (4.0-10.8)
[2020-12-16 16:25] LABS: ALBUMIN 3.5 g/dl (3.4-5.0); BILIRUBIN,TOTAL 0.7 mg/dl (0.2-1); CALCIUM 9.2 mg/dl (8.5-10); TOT PROT 7.2 g/dl (6.4-8.2)
[2020-12-16 18:47] LABS: PLATELET ESTIMATE ADEQUATE
== END 2020-12-16 19:09 | disposition home or self-care (01) ==
LOC: FER 15:01
DX: K51.919 Ulcerative colitis, unspecified with unspecified complications (principal)
CPT/HCPCS: 36415; 74177-TC; 80053; 85025; 99285-25; Q9967

== ENCOUNTER 2020-12-29 04:55 | Day surgery (SDC) | payer OTHER, MEDICARE ==
[2020-12-25 15:07] VITALS: BMI 18.3
[2020-12-29] MEDS ORDERED: LIDOCAINE HCL 1%, 10 MG/ML (20ML VIAL) ONE (15:25)
[2020-12-29] MEDS ORDERED: LIDOCAINE HCL 1%, 10 MG/ML (50 mL VIAL) PNB ONE (16:25)
[2020-12-29 19:03] VITALS: BP 156/64; PULSE 74; TEMP 97.8
== END 2020-12-29 16:45 | disposition home or self-care (01) ==
LOC: JASU-SURG 04:55
PROVIDERS: ATTEND Surgery
PROC: 0HBU0ZX Excision of Left Breast, Open Approach, Diagnostic (ICD-10-PCS; principal; 2020-12-29 14:30)
DX: D24.2 Benign neoplasm of left breast (principal); Z85.3 Personal history of malignant neoplasm of breast

== ENCOUNTER 2021-01-08 19:42 | Inpatient (IN) | payer OTHER, MEDICARE ==
[2021-01-09 01:04] VITALS: BMI 18.5
[2021-01-09] MEDS: VANCOMYCIN 250 MG/5 ML ORAL SOLUTION PO SCH ×5 (01:09→23:26)
[2021-01-09 08:52] LABS: BASO % 0.8 % (0-2.0); EOS % 3.6 % (0-4.5); HEMATOCRIT 33.7 % (32.4-45.2); HEMOGLOBIN 11.3 GM/dL (10.7-15.3); LYMPH % 8.4 % (8-40); MCH 33.1 pg (25.7-33.7); MCHC 33.6 g/dl (32.0-36.0); MEAN CELL VOLUME 98.4 fl (80-96); MEAN PLT VOLUME 7.7 fl (7.5-11.1); MONO % 10.4 % (3.8-10.2); NEUT % 76.8 % (42.8-82.8); PLATELET COUNT 396 10^3/uL (134-434); RBC 3.42 M/mm3 (3.60-5.2); RDW 13.4 % (11.6-15.6)
[2021-01-09 09:12] LABS: CALCIUM 8.2 mg/dL (8.5-10.1)
[2021-01-09 09:13] LABS: MAGNESIUM 1.8 mg/dL (1.8-2.4)
[2021-01-09 09:16] LABS: CREATININE 0.6 mg/dL (0.55-1.3); PHOSPHOROUS 4.1 mg/dL (2.5-4.9)
[2021-01-09 09:17] LABS: BILIRUBIN,TOTAL 0.2 mg/dL (0.2-1); TOT PROT 5.5 g/dl (6.4-8.2)
[2021-01-09 09:21] LABS: ALBUMIN 2.4 g/dl (3.4-5.0)
[2021-01-09] MEDS: ENOXAPARIN NA (PORCINE) 40 MG/0.4 ML DISP.SYRIN SQ SCH (09:40)
[2021-01-09] MEDS ORDERED: PT OWN MED DRAWER 7, Y5N ONE (13:52)
[2021-01-09] MEDS: ASPIRIN 81 MG CHEWABLE TABLETS PO SCH (13:56)
[2021-01-09] MEDS: CHOLECALCIFEROL (VIT D3) 1,000 UNIT (25 MCG) TABLET PO SCH (13:57)
[2021-01-09] MEDS: ASCORBIC ACID 500 MG TABLET (FP) PO SCH ×2 (13:57→21:52)
[2021-01-09] MEDS: FAMOTIDINE 40 MG TABLET PO SCH (13:57)
[2021-01-09] MEDS: TIOTROPIUM BROMIDE 2.5 MCG (SPIRIVA) RESPIMAT INHALER IH SCH (14:18)
[2021-01-09] MEDS: ROSUVASTATIN CA 5 MG TABLET (FP) PO SCH (21:52)
[2021-01-10] MEDS: VANCOMYCIN 250 MG/5 ML ORAL SOLUTION PO SCH ×3 (05:52→17:44)
[2021-01-10 08:29] LABS: BASO % 0.6 % (0-2.0); EOS % 2.7 % (0-4.5); HEMATOCRIT 32.6 % (32.4-45.2); HEMOGLOBIN 10.6 GM/dL (10.7-15.3); LYMPH % 11.3 % (8-40); MCH 32.1 pg (25.7-33.7); MCHC 32.4 g/dl (32.0-36.0); MEAN CELL VOLUME 99.1 fl (80-96); MEAN PLT VOLUME 7.2 fl (7.5-11.1); MONO % 8.2 % (3.8-10.2); NEUT % 77.2 % (42.8-82.8); PLATELET COUNT 388 10^3/uL (134-434); RBC 3.29 M/mm3 (3.60-5.2); RDW 13.3 % (11.6-15.6); WHITE BLOOD COUNT 11.1 K/mm3 (4.0-10.0)
[2021-01-10 08:50] LABS: ALBUMIN 2.3 g/dl (3.4-5.0); BLOOD UREA NITROGEN 11.2 mg/dL (7-18); CALCIUM 8.5 mg/dL (8.5-10.1); MAGNESIUM 1.8 mg/dL (1.8-2.4)
[2021-01-10 08:53] LABS: CREATININE 0.6 mg/dL (0.55-1.3); PHOSPHOROUS 4.1 mg/dL (2.5-4.9)
[2021-01-10 08:54] LABS: BILIRUBIN,TOTAL 0.3 mg/dL (0.2-1); TOT PROT 5.4 g/dl (6.4-8.2)
[2021-01-10] MEDS ORDERED: PT OWN MED DRAWER 7, Y5N ONE (10:43)
[2021-01-10] MEDS: CHOLECALCIFEROL (VIT D3) 1,000 UNIT (25 MCG) TABLET PO SCH (11:07)
[2021-01-10] MEDS: ASPIRIN 81 MG CHEWABLE TABLETS PO SCH (11:07)
[2021-01-10] MEDS: ASCORBIC ACID 500 MG TABLET (FP) PO SCH ×2 (11:08→22:17)
[2021-01-10] MEDS: FAMOTIDINE 40 MG TABLET PO SCH (11:08)
[2021-01-10] MEDS: ENOXAPARIN NA (PORCINE) 40 MG/0.4 ML DISP.SYRIN SQ SCH (11:08)
[2021-01-10] MEDS: TIOTROPIUM BROMIDE 2.5 MCG (SPIRIVA) RESPIMAT INHALER IH SCH (11:08)
[2021-01-10] MEDS: ROSUVASTATIN CA 5 MG TABLET (FP) PO SCH (22:17)
[2021-01-11] MEDS: VANCOMYCIN 250 MG/5 ML ORAL SOLUTION PO SCH ×4 (00:01→17:37)
[2021-01-11 07:45] LABS: BASO % 0.3 % (0-2.0); EOS % 2.3 % (0-4.5); HEMATOCRIT 32.7 % (32.4-45.2); HEMOGLOBIN 10.9 GM/dL (10.7-15.3); LYMPH % 11.5 % (8-40); MCH 32.5 pg (25.7-33.7); MCHC 33.2 g/dl (32.0-36.0); MEAN CELL VOLUME 97.9 fl (80-96); MEAN PLT VOLUME 7.1 fl (7.5-11.1); MONO % 8.1 % (3.8-10.2); NEUT % 77.8 % (42.8-82.8); PLATELET COUNT 373 10^3/uL (134-434); RBC 3.34 M/mm3 (3.60-5.2); RDW 13.4 % (11.6-15.6); WHITE BLOOD COUNT 11.4 K/mm3 (4.0-10.0)
[2021-01-11 07:46] LABS: BLOOD UREA NITROGEN 7.6 mg/dL (7-18); CALCIUM 8.2 mg/dL (8.5-10.1)
[2021-01-11 07:47] LABS: MAGNESIUM 1.8 mg/dL (1.8-2.4)
[2021-01-11 07:50] LABS: CREATININE 0.6 mg/dL (0.55-1.3); PHOSPHOROUS 3.7 mg/dL (2.5-4.9)
[2021-01-11] MEDS ORDERED: PT OWN MED DRAWER 7, Y5N ONE (09:17)
[2021-01-11] MEDS: ENOXAPARIN NA (PORCINE) 40 MG/0.4 ML DISP.SYRIN SQ SCH (09:40)
[2021-01-11] MEDS: ASCORBIC ACID 500 MG TABLET (FP) PO SCH ×2 (09:40→21:33)
[2021-01-11] MEDS: FAMOTIDINE 40 MG TABLET PO SCH (09:41)
[2021-01-11] MEDS: CHOLECALCIFEROL (VIT D3) 1,000 UNIT (25 MCG) TABLET PO SCH (09:41)
[2021-01-11] MEDS: ASPIRIN 81 MG CHEWABLE TABLETS PO SCH (09:41)
[2021-01-11] MEDS: TIOTROPIUM BROMIDE 2.5 MCG (SPIRIVA) RESPIMAT INHALER IH SCH (10:50)
[2021-01-11] MEDS: ROSUVASTATIN CA 5 MG TABLET (FP) PO SCH (21:33)
[2021-01-12] MEDS: VANCOMYCIN 250 MG/5 ML ORAL SOLUTION PO SCH ×3 (01:45→11:16)
[2021-01-12 07:27] LABS: BASO % 0.4 % (0-2.0); EOS % 2.1 % (0-4.5); HEMATOCRIT 32.8 % (32.4-45.2); LYMPH % 12.2 % (8-40); MCH 32.9 pg (25.7-33.7); MCHC 33.5 g/dl (32.0-36.0); MEAN CELL VOLUME 98.2 fl (80-96); MEAN PLT VOLUME 6.8 fl (7.5-11.1); MONO % 7.5 % (3.8-10.2); NEUT % 77.8 % (42.8-82.8); PLATELET COUNT 373 10^3/uL (134-434); RBC 3.34 M/mm3 (3.60-5.2); RDW 13.4 % (11.6-15.6); WHITE BLOOD COUNT 11.9 K/mm3 (4.0-10.0)
[2021-01-12 07:54] LABS: CALCIUM 8.6 mg/dL (8.5-10.1)
[2021-01-12 07:58] LABS: CREATININE 0.7 mg/dL (0.55-1.3)
[2021-01-12] MEDS ORDERED: SODIUM CHLORIDE 1,000 ML IV SCH (09:30)
[2021-01-12] MEDS ORDERED: PT OWN MED DRAWER 7, Y5N ONE (09:45)
[2021-01-12] MEDS: ASPIRIN 81 MG CHEWABLE TABLETS PO SCH (09:49)
[2021-01-12] MEDS: ENOXAPARIN NA (PORCINE) 40 MG/0.4 ML DISP.SYRIN SQ SCH (09:49)
[2021-01-12] MEDS: ASCORBIC ACID 500 MG TABLET (FP) PO SCH (09:49)
[2021-01-12] MEDS: CHOLECALCIFEROL (VIT D3) 1,000 UNIT (25 MCG) TABLET PO SCH (09:49)
[2021-01-12] MEDS: FAMOTIDINE 40 MG TABLET PO SCH (09:49)
[2021-01-12] MEDS: TIOTROPIUM BROMIDE 2.5 MCG (SPIRIVA) RESPIMAT INHALER IH SCH (11:14)
[2021-01-12 14:25] VITALS: BP 122/56; PULSE 76; TEMP 98.4
== END 2021-01-12 16:32 | disposition home or self-care (01) | DRG 371 ==
LOC: JER 19:42 → JERBED 21:53 → J8W 01-09 00:20
PROVIDERS: ADMIT Internal Medicine; ATTEND Student in an Organized Health Care Education/Training Program
DX: A04.72 Enterocolitis due to Clostridium difficile, not specified as recurrent (principal); E43 Unspecified severe protein-calorie malnutrition; R64 Cachexia; Z68.1 Body mass index [BMI] 19.9 or less, adult; R19.7 Diarrhea, unspecified; R10.9 Unspecified abdominal pain; I10 Essential (primary) hypertension; E78.5 Hyperlipidemia, unspecified; I25.10 Atherosclerotic heart disease of native coronary artery without angina pectoris; Z98.61 Coronary angioplasty status
CPT/HCPCS: 36415; 74177-TC; 80048; 80053; 83690; 83735; 84100; 85025; 87045; 87046; 87177; 87209; 87324; 87449; 93005; 93010; 99285-25; C9803; Q9967; U0003; U0005

== ENCOUNTER 2021-01-25 10:19 | Inpatient (IN) | payer OTHER, MEDICARE ==
[2021-01-25] MEDS ORDERED: dilTIAZem HCL 50 MG/10 ML - 10 ML VIAL IVPUSH ONE (11:14)
[2021-01-25] MEDS ORDERED: SODIUM CHLORIDE 0.9% 500 ML INFUS.BAG IV ONE (11:18)
[2021-01-25] MEDS ORDERED: dilTIAZem HCL 125 MG/25 ML - 25 ML VIAL ONE (11:19)
[2021-01-25 12:20] LABS: BASO % 0.4 % (0-2.0); EOS % 1.7 % (0-4.5); HEMATOCRIT 35.9 % (32.4-45.2); HEMOGLOBIN 11.9 GM/dL (10.7-15.3); LYMPH % 8.3 % (8-40); MCH 32.4 pg (25.7-33.7); MCHC 33.2 g/dl (32.0-36.0); MEAN CELL VOLUME 97.4 fl (80-96); MONO % 6.5 % (3.8-10.2); NEUT % 83.1 % (42.8-82.8); PLATELET COUNT 438 10^3/uL (134-434); RBC 3.69 M/mm3 (3.60-5.2); RDW 13.7 % (11.6-15.6); WHITE BLOOD COUNT 13.7 K/mm3 (4.0-10.0)
[2021-01-25 12:27] LABS: PROTHROMBIN TIME (PATIENT) 12.1 SEC (9.7-13.0)
[2021-01-25 12:29] LABS: ACTIVATED PTT 24.6 SECONDS (25.2-36.5)
[2021-01-25 12:36] LABS: CHLORIDE 105 mmol/L (98-107); SODIUM 140 mmol/L (136-145)
[2021-01-25 12:39] LABS: CALCIUM 9.3 mg/dL (8.5-10.1)
[2021-01-25 12:40] LABS: ANION GAP 9 MMOL/L (8-16); BLOOD UREA NITROGEN 13.2 mg/dL (7-18); CO2 26 mmol/L (21-32); GLUCOSE,RANDOM 119 mg/dL (74-106)
[2021-01-25 12:43] LABS: CREATININE 0.8 mg/dL (0.55-1.3); SGOT/AST 19 U/L (15-37); SGPT/ALT 15 U/L (13-61)
[2021-01-25 12:44] LABS: BILIRUBIN,TOTAL 0.4 mg/dL (0.2-1)
[2021-01-25 12:45] LABS: TOT PROT 7.2 g/dl (6.4-8.2)
[2021-01-25 12:46] LABS: ALK PHOS 77 U/L (45-117)
[2021-01-25] MEDS ORDERED: ACETAMINOPHEN 325 MG TABLET (FP) PO PRN (16:38)
[2021-01-25] MEDS ORDERED: SODIUM CHLORIDE 500 ML IV STA (16:38)
[2021-01-25 17:02] LABS: PH,URINE 5.5 (5.0-8.0); URINE APPEARANCE CLEAR; URINE BILIRUBIN NEGATIVE (NEGATIVE); URINE COLOR YELLOW; URINE GLUCOSE (UA) NEGATIVE (NEGATIVE); URINE KETONE NEGATIVE (NEGATIVE); URINE LEUK ESTERASE NEGATIVE (NEGATIVE); URINE NITRITE NEGATIVE (NEGATIVE); URINE PROTEIN NEGATIVE (NEGATIVE); URINE UROBILINOGEN 0.2 mg/dL (0.2-1.0)
[2021-01-25] MEDS ORDERED: PROCHLORPERAZINE INJECTION 10 MG/2 ML VIAL IVPB PRN (17:39)
[2021-01-25] MEDS: ENOXAPARIN NA (PORCINE) 60 MG/0.6 ML DISP.SYRIN SQ SCH (21:31)
[2021-01-25] MEDS: MELATONIN 5 MG TABLETS PO SCH (21:32)
[2021-01-25] MEDS: METOPROLOL TARTRATE 25 MG TABLET (FP) PO SCH (21:33)
[2021-01-26 07:05] LABS: BASO % 0.7 % (0-2.0); EOS % 4.1 % (0-4.5); HEMATOCRIT 32.1 % (32.4-45.2); HEMOGLOBIN 10.6 GM/dL (10.7-15.3); LYMPH % 8.8 % (8-40); MCH 32.5 pg (25.7-33.7); MCHC 32.9 g/dl (32.0-36.0); MEAN CELL VOLUME 98.8 fl (80-96); MEAN PLT VOLUME 7.2 fl (7.5-11.1); MONO % 6.2 % (3.8-10.2); NEUT % 80.2 % (42.8-82.8); PLATELET COUNT 421 10^3/uL (134-434); RBC 3.25 M/mm3 (3.60-5.2); RDW 13.7 % (11.6-15.6); WHITE BLOOD COUNT 11.6 K/mm3 (4.0-10.0)
[2021-01-26 07:22] LABS: CALCIUM 8.5 mg/dL (8.5-10.1)
[2021-01-26 07:23] LABS: ALBUMIN 2.4 g/dl (3.4-5.0); BLOOD UREA NITROGEN 10.1 mg/dL (7-18); MAGNESIUM 1.9 mg/dL (1.8-2.4)
[2021-01-26 07:25] LABS: BILIRUBIN,TOTAL 0.4 mg/dL (0.2-1); CREATININE 0.6 mg/dL (0.55-1.3); PHOSPHOROUS 3.1 mg/dL (2.5-4.9); TOT PROT 5.8 g/dl (6.4-8.2)
[2021-01-26] MEDS ORDERED: TIOTROPIUM BROMIDE 2.5 MCG (SPIRIVA) RESPIMAT INHALER IH SCH (10:00)
[2021-01-26] MEDS ORDERED: CHOLECALCIFEROL (VIT D3) 1,000 UNIT (25 MCG) TABLET PO SCH (10:00)
[2021-01-26] MEDS: FAMOTIDINE 20 MG TABLET PO SCH (10:20)
[2021-01-26] MEDS: ROSUVASTATIN CA 5 MG TABLET (FP) PO SCH (10:20)
[2021-01-26] MEDS: METOPROLOL TARTRATE 25 MG TABLET (FP) PO SCH (10:20)
[2021-01-26] MEDS: ENOXAPARIN NA (PORCINE) 60 MG/0.6 ML DISP.SYRIN SQ SCH ×2 (10:21→21:16)
[2021-01-26] MEDS ORDERED: METOPROLOL TARTRATE 25 MG TABLET (FP) PO SCH ×3 (16:10→22:00)
[2021-01-26] MEDS ORDERED: METOPROLOL TARTRATE 5 MG/5 ML VIAL IVPUSH ONE (18:02)
[2021-01-26] MEDS: MELATONIN 5 MG TABLETS PO SCH (21:16)
[2021-01-27 07:14] LABS: BASO % 0.8 % (0-2.0); EOS % 4.4 % (0-4.5); HEMATOCRIT 35.8 % (32.4-45.2); HEMOGLOBIN 11.9 GM/dL (10.7-15.3); LYMPH % 11.7 % (8-40); MCH 32.5 pg (25.7-33.7); MCHC 33.2 g/dl (32.0-36.0); MEAN CELL VOLUME 97.9 fl (80-96); MEAN PLT VOLUME 7.1 fl (7.5-11.1); NEUT % 75.1 % (42.8-82.8); PLATELET COUNT 434 10^3/uL (134-434); RBC 3.66 M/mm3 (3.60-5.2); RDW 13.8 % (11.6-15.6); WHITE BLOOD COUNT 14.8 K/mm3 (4.0-10.0)
[2021-01-27 07:51] LABS: CALCIUM 9.4 mg/dL (8.5-10.1)
[2021-01-27 07:53] LABS: ALBUMIN 2.6 g/dl (3.4-5.0); BLOOD UREA NITROGEN 8.2 mg/dL (7-18); MAGNESIUM 1.8 mg/dL (1.8-2.4)
[2021-01-27 07:56] LABS: BILIRUBIN,TOTAL 0.4 mg/dL (0.2-1); CREATININE 0.7 mg/dL (0.55-1.3); PHOSPHOROUS 3.7 mg/dL (2.5-4.9); TOT PROT 6.4 g/dl (6.4-8.2)
[2021-01-27] MEDS ORDERED: METOPROLOL TARTRATE 50 MG TABLET (FP) PO SCH (09:08)
[2021-01-27] MEDS: METOPROLOL TARTRATE 50 MG TABLET (FP) PO SCH ×2 (09:34→21:42)
[2021-01-27] MEDS: ROSUVASTATIN CA 5 MG TABLET (FP) PO SCH (09:34)
[2021-01-27] MEDS: FAMOTIDINE 20 MG TABLET PO SCH (09:34)
[2021-01-27 20:20] VITALS: BMI 17.9
[2021-01-27] MEDS: MELATONIN 5 MG TABLETS PO SCH (21:42)
[2021-01-28 08:07] LABS: BASO % 0.5 % (0-2.0); EOS % 4.1 % (0-4.5); HEMATOCRIT 32.8 % (32.4-45.2); HEMOGLOBIN 10.6 GM/dL (10.7-15.3); LYMPH % 11.1 % (8-40); MCH 31.8 pg (25.7-33.7); MCHC 32.4 g/dl (32.0-36.0); MEAN CELL VOLUME 98.2 fl (80-96); MEAN PLT VOLUME 7.1 fl (7.5-11.1); MONO % 7.1 % (3.8-10.2); NEUT % 77.2 % (42.8-82.8); PLATELET COUNT 368 10^3/uL (134-434); RBC 3.33 M/mm3 (3.60-5.2); RDW 14.1 % (11.6-15.6); WHITE BLOOD COUNT 11.9 K/mm3 (4.0-10.0)
[2021-01-28 08:28] LABS: ALBUMIN 2.4 g/dl (3.4-5.0); BLOOD UREA NITROGEN 11.9 mg/dL (7-18); CALCIUM 8.8 mg/dL (8.5-10.1); MAGNESIUM 1.8 mg/dL (1.8-2.4)
[2021-01-28 08:30] LABS: PHOSPHOROUS 4.4 mg/dL (2.5-4.9)
[2021-01-28 08:31] LABS: CREATININE 0.7 mg/dL (0.55-1.3)
[2021-01-28 08:32] LABS: BILIRUBIN,TOTAL 0.3 mg/dL (0.2-1); TOT PROT 5.8 g/dl (6.4-8.2)
[2021-01-28] MEDS: ROSUVASTATIN CA 5 MG TABLET (FP) PO SCH (13:25)
[2021-01-28] MEDS: FAMOTIDINE 20 MG TABLET PO SCH (13:25)
[2021-01-28] MEDS: METOPROLOL TARTRATE 50 MG TABLET (FP) PO SCH ×2 (13:25→21:15)
[2021-01-28] MEDS: MELATONIN 5 MG TABLETS PO SCH (21:15)
[2021-01-28] MEDS ORDERED: APIXABAN 5 MG TABLET PO SCH (22:00)
[2021-01-29 08:46] LABS: BASO % 0.6 % (0-2.0); EOS % 3.4 % (0-4.5); HEMATOCRIT 31.9 % (32.4-45.2); HEMOGLOBIN 10.7 GM/dL (10.7-15.3); LYMPH % 10.7 % (8-40); MCH 32.8 pg (25.7-33.7); MCHC 33.4 g/dl (32.0-36.0); MEAN CELL VOLUME 98.1 fl (80-96); MEAN PLT VOLUME 7.3 fl (7.5-11.1); MONO % 8.1 % (3.8-10.2); NEUT % 77.2 % (42.8-82.8); PLATELET COUNT 372 10^3/uL (134-434); RBC 3.25 M/mm3 (3.60-5.2); WHITE BLOOD COUNT 13.7 K/mm3 (4.0-10.0)
[2021-01-29 09:16] LABS: ALBUMIN 2.6 g/dl (3.4-5.0); BLOOD UREA NITROGEN 9.1 mg/dL (7-18); MAGNESIUM 1.9 mg/dL (1.8-2.4)
[2021-01-29 09:19] LABS: CREATININE 0.7 mg/dL (0.55-1.3); PHOSPHOROUS 4.1 mg/dL (2.5-4.9)
[2021-01-29 09:20] LABS: BILIRUBIN,TOTAL 0.3 mg/dL (0.2-1)
[2021-01-29 09:22] LABS: TOT PROT 6.2 g/dl (6.4-8.2)
[2021-01-29] MEDS: ROSUVASTATIN CA 5 MG TABLET (FP) PO SCH (10:18)
[2021-01-29] MEDS: FAMOTIDINE 20 MG TABLET PO SCH (10:18)
[2021-01-29] MEDS: METOPROLOL TARTRATE 50 MG TABLET (FP) PO SCH (10:18)
[2021-01-29 10:34] VITALS: BP 134/63; TEMP 98
[2021-01-29 11:53] VITALS: PULSE 102
== END 2021-01-29 13:07 | disposition home or self-care (01) | DRG 180 ==
LOC: JER 10:19 → JERBED 11:38 → J4W 18:31
PROVIDERS: ATTEND Student in an Organized Health Care Education/Training Program
PROC: 0BBG3ZX Excision of Left Upper Lung Lobe, Percutaneous Approach, Diagnostic (ICD-10-PCS; principal; 2021-01-28)
DX: C34.10 Malignant neoplasm of upper lobe, unspecified bronchus or lung (principal); E43 Unspecified severe protein-calorie malnutrition; C77.9 Secondary and unspecified malignant neoplasm of lymph node, unspecified; Z68.1 Body mass index [BMI] 19.9 or less, adult; I48.0 Paroxysmal atrial fibrillation; J44.9 Chronic obstructive pulmonary disease, unspecified; I25.10 Atherosclerotic heart disease of native coronary artery without angina pectoris; Z98.61 Coronary angioplasty status; I10 Essential (primary) hypertension; K21.9 Gastro-esophageal reflux disease without esophagitis; D72.829 Elevated white blood cell count, unspecified; E78.5 Hyperlipidemia, unspecified
CPT/HCPCS: 32408; 36415; 70450-TC; 71045-TC-FY; 71260-TC; 80053; 80061; 81003; 82550; 82607; 83036; 83721; 83735; 84100; 84439; 84443; 84484; 85025; 85610; 85730; 87086; 88305-TC; 88341-TC; 93005; 93010; 93306-TC; 94761; 99285-25; C9803; U0003; U0005

== ENCOUNTER 2021-04-02 04:39 | Inpatient (IN) | payer OTHER, MEDICARE ==
[2021-04-02] MEDS ORDERED: SODIUM CHLORIDE 250 ML IV ONE (10:00)
[2021-04-02] MEDS ORDERED: PEMBROLIZUMAB 200 MG in SODIUM CHLORIDE 100 ML IV ONE (10:30)
[2021-04-02 11:37] LABS: BLOOD UREA NITROGEN 14.6 mg/dL (7-18); CALCIUM 8.8 mg/dL (8.5-10.1)
[2021-04-02 11:41] LABS: CREATININE 0.5 mg/dL (0.55-1.3)
[2021-04-02] MEDS ORDERED: MIDAZOLAM HCL 2 MG/2 ML SINGLE DOSE VIAL ONE (13:00)
[2021-04-02] MEDS ORDERED: SODIUM CHLORIDE 500 ML IV ONE (13:00)
[2021-04-02] MEDS ORDERED: MIDAZOLAM HCL 2 MG/2 ML SINGLE DOSE VIAL IVPUSH ONE (13:10)
[2021-04-02] MEDS: ALBUTEROL SO4 2.5/IPRATROPIUM 0.5 INH SOL 3 ML VIAL.NEB. NEB PRN ×2 (16:20→22:40)
[2021-04-02] MEDS ORDERED: methylPREDNISolone NA SUCC 40 MG/1 ML VIAL IVPUSH ONE (16:22)
[2021-04-02] MEDS ORDERED: methylPREDNISolone NA SUCC 125 MG/2 ML VIAL ONE (17:03)
[2021-04-02] MEDS ORDERED: PORTA CATH FLUSH 10 ML IVPUSH ONE (18:01)
[2021-04-02] MEDS ORDERED: ALBUTEROL SO4 0.083% IH SOL 2.5 MG/3 ML VIAL.NEB. NEB PRN (19:07)
[2021-04-02] MEDS ORDERED: ALBUTEROL SO4 2.5/IPRATROPIUM 0.5 INH SOL 3 ML VIAL.NEB. NEB SCH (20:00)
[2021-04-02] MEDS ORDERED: ROSUVASTATIN CA 5 MG TABLET (FP) PO SCH (22:00)
[2021-04-02] MEDS ORDERED: METOPROLOL TARTRATE 50 MG TABLET (FP) PO SCH (22:00)
[2021-04-02] MEDS ORDERED: SODIUM CHLORIDE 1,000 ML IV ONE (22:59)
[2021-04-02] MEDS ORDERED: methylPREDNISolone NA SUCC 40 MG/1 ML VIAL IVPUSH SCH (23:15)
[2021-04-02] MEDS ORDERED: ENOXAPARIN NA (PORCINE) 40 MG/0.4 ML DISP.SYRIN SQ ONE (23:18)
[2021-04-02] MEDS ORDERED: methylPREDNISolone NA SUCC 40 MG/1 ML VIAL IVPB ONE (23:28)
[2021-04-02] MEDS ORDERED: FUROSEMIDE 40 MG/4 ML INJECTABLE VIAL IVPUSH ONE (23:52)
[2021-04-02] MEDS ORDERED: FUROSEMIDE 40 MG/4 ML INJECTABLE VIAL ONE (23:56)
[2021-04-03] MEDS: MUPIROCIN 2% TOPICAL OINTMENT FOR DECOLONIZATION NS SCH ×3 (00:10→23:32)
[2021-04-03 00:13] LABS: ARTERIAL BLD GAS O2 SATURATION 98.7 % (95-98); ARTERIAL BLOOD GAS BASE EXCESS -5.7 mmol/L (-2-2); ARTERIAL BLOOD GAS PO2 191.1 mmHg (80-100)
[2021-04-03 00:17] LABS: ARTERIAL BLOOD GAS pH 7.075 (7.350-7.450)
[2021-04-03] MEDS ORDERED: MORPHINE SULFATE 2 MG/ML VIAL IVPUSH ONE ×3 (01:33→22:48)
[2021-04-03] MEDS ORDERED: MORPHINE SULFATE 2 MG/ML VIAL ONE ×2 (01:47→21:08)
[2021-04-03] MEDS ORDERED: methylPREDNISolone NA SUCC 40 MG/1 ML VIAL IVPB SCH ×2 (02:00→18:15)
[2021-04-03 07:02] LABS: ARTERIAL BLD GAS O2 SATURATION 97.7 % (95-98); ARTERIAL BLOOD GAS BASE EXCESS -8.1 mmol/L (-2-2); ARTERIAL BLOOD GAS PO2 146.3 mmHg (80-100)
[2021-04-03] MEDS ORDERED: morphine SULFATE 4 MG/ML VIAL IVPUSH ONE (07:11)
[2021-04-03 07:13] LABS: ARTERIAL BLOOD GAS pH 7.061 (7.350-7.450)
[2021-04-03 07:14] LABS: ALLENS TEST POSITIVE
[2021-04-03] MEDS ORDERED: MORPHINE SULFATE/0.9% NACL/PF 100 MG/100 ML BAG IVPB SCH ×3 (07:15→18:28)
[2021-04-03] MEDS ORDERED: PANTOPRAZOLE SODIUM 40 MG VIAL IVPB SCH (10:00)
[2021-04-03] MEDS ORDERED: ENOXAPARIN NA (PORCINE) 40 MG/0.4 ML DISP.SYRIN SQ SCH (11:30)
[2021-04-03] MEDS ORDERED: ALBUTEROL SO4 0.083% IH SOL 2.5 MG/3 ML VIAL.NEB. NEB PRN (18:16)
[2021-04-03] MEDS ORDERED: DEXTROSE 5%-WATER - 50 ML IVPB ONE (18:35)
[2021-04-03] MEDS ORDERED: PIPERACILLIN/TAZOBACTAM 3.375 GM VIAL IVPB ONE (18:35)
[2021-04-03] MEDS: ENOXAPARIN NA (PORCINE) 40 MG/0.4 ML DISP.SYRIN SQ SCH (18:47)
[2021-04-03] MEDS: PANTOPRAZOLE SODIUM 40 MG VIAL IVPB SCH (18:48)
[2021-04-03] MEDS: PIPERACILLIN/TAZOB 3.375 GM 3.375 GM in DEXTROSE 5%-WATER - 50 ML IVPB SCH (18:48)
[2021-04-03] MEDS ORDERED: METOPROLOL TARTRATE 5 MG/5 ML VIAL ONE (20:29)
[2021-04-03] MEDS ORDERED: METOPROLOL TARTRATE 25 MG TABLET (FP) PO SCH ×3 (20:45→22:00)
[2021-04-03] MEDS ORDERED: FUROSEMIDE 40 MG/4 ML INJECTABLE VIAL IVPUSH ONE (21:44)
[2021-04-03] MEDS ORDERED: METOPROLOL TARTRATE 5 MG/5 ML VIAL IVPUSH ONE (22:48)
[2021-04-03] MEDS: CHLORHEXIDINE GLUCONATE 4% CLEANSER FOR DECOLONIZATION TP SCH (23:32)
[2021-04-04] MEDS ORDERED: DEXTROSE 5%-WATER - 50 ML IVPB ONE (01:39)
[2021-04-04] MEDS ORDERED: PIPERACILLIN/TAZOBACTAM 3.375 GM VIAL IVPB ONE (01:39)
[2021-04-04] MEDS ORDERED: dilTIAZem HCL 50 MG/10 ML - 10 ML VIAL IVPUSH ONE ×3 (01:55→22:27)
[2021-04-04] MEDS ORDERED: PIPERACILLIN/TAZOB 3.375 GM 3.375 GM in DEXTROSE 5%-WATER - 50 ML IVPB SCH (02:00)
[2021-04-04] MEDS: methylPREDNISolone NA SUCC 40 MG/1 ML VIAL IVPB SCH ×3 (02:17→17:17)
[2021-04-04] MEDS: PIPERACILLIN/TAZOB 3.375 GM 3.375 GM in DEXTROSE 5%-WATER - 50 ML IVPB SCH (02:18)
[2021-04-04] MEDS ORDERED: dilTIAZem HCL 125 MG/25 ML - 25 ML VIAL ONE ×2 (02:19→17:43)
[2021-04-04 06:44] LABS: HEMATOCRIT 33.5 % (32.4-45.2); HEMOGLOBIN 10.9 GM/dL (10.7-15.3); MCH 31.8 pg (25.7-33.7); MCHC 32.5 g/dl (32.0-36.0); MEAN CELL VOLUME 97.9 fl (80-96); MEAN PLT VOLUME 7.7 fl (7.5-11.1); PLATELET COUNT 382 10^3/uL (134-434); RBC 3.42 M/mm3 (3.60-5.2); RDW 14.9 % (11.6-15.6); WHITE BLOOD COUNT 24.1 K/mm3 (4.0-10.0)
[2021-04-04] MEDS ORDERED: MORPHINE SULFATE 2 MG/ML VIAL ONE (06:46)
[2021-04-04] MEDS ORDERED: MORPHINE SULFATE 2 MG/ML VIAL IVPUSH ONE (06:48)
[2021-04-04] MEDS: ENOXAPARIN NA (PORCINE) 40 MG/0.4 ML DISP.SYRIN SQ SCH (06:52)
[2021-04-04 06:54] LABS: CHLORIDE 100 mmol/L (98-107); SODIUM 136 mmol/L (136-145)
[2021-04-04 06:57] LABS: ALBUMIN 2.6 g/dl (3.4-5.0); CO2 27 mmol/L (21-32); GLUCOSE,RANDOM 115 mg/dL (74-106)
[2021-04-04 07:00] LABS: SGOT/AST 108 U/L (15-37); SGPT/ALT 140 U/L (13-61)
[2021-04-04 07:02] LABS: BILIRUBIN,TOTAL 0.4 mg/dL (0.2-1); TOT PROT 6.3 g/dl (6.4-8.2)
[2021-04-04 07:12] LABS: INR 0.94 (0.83-1.09); PROTHROMBIN TIME (PATIENT) 11.6 SEC (9.7-13.0)
[2021-04-04 07:15] LABS: ACTIVATED PTT 27.3 SECONDS (25.2-36.5)
[2021-04-04 07:16] LABS: ALK PHOS 103 U/L (45-117); ANION GAP 9 MMOL/L (8-16); BLOOD UREA NITROGEN 68.9 mg/dL (7-18)
[2021-04-04] MEDS ORDERED: MORPHINE SULFATE/0.9% NACL/PF 100 MG/100 ML BAG IVPB SCH (07:34)
[2021-04-04] MEDS: LORazepam 2 MG/ML SDV VIAL IVPUSH PRN (07:45)
[2021-04-04] MEDS ORDERED: DEXTROSE 5%-NORMAL SALINE 1,000 ML IV SCH (08:30)
[2021-04-04 09:11] LABS: ANISOCYTOSIS 1+; MACROCYTOSIS 1+; PLATELET ESTIMATE NORMAL
[2021-04-04] MEDS: DEXTROSE 5%-NORMAL SALINE 1,000 ML IV SCH (09:46)
[2021-04-04] MEDS: PANTOPRAZOLE SODIUM 40 MG VIAL IVPB SCH (09:46)
[2021-04-04] MEDS: MUPIROCIN 2% TOPICAL OINTMENT FOR DECOLONIZATION NS SCH ×2 (09:46→22:30)
[2021-04-04] MEDS ORDERED: PIPERACILLIN/TAZOB 2.25 GM 2.25 GM in DEXTROSE 5%-WATER - 50 ML IVPB SCH (10:00)
[2021-04-04] MEDS ORDERED: ENOXAPARIN NA (PORCINE) 40 MG/0.4 ML DISP.SYRIN SQ SCH (10:00)
[2021-04-04] MEDS ORDERED: dilTIAZem HCL 50 MG/10 ML - 10 ML VIAL IVPUSH PRN (17:34)
[2021-04-04] MEDS: dilTIAZem HCL 25 MG/5 ML - 5 ML VIAL IVPUSH PRN ×2 (17:46→23:08)
[2021-04-04] MEDS ORDERED: dilTIAZem HCL 25 MG/5 ML - 5 ML VIAL IVPUSH ONE (22:27)
[2021-04-04] MEDS: CHLORHEXIDINE GLUCONATE 4% CLEANSER FOR DECOLONIZATION TP SCH (22:30)
[2021-04-04] MEDS ORDERED: METOPROLOL TARTRATE 5 MG/5 ML VIAL IVPUSH ONE (23:39)
[2021-04-05] MEDS ORDERED: DILTIAZEM INJECTION 125 MG in SODIUM CHLORIDE 100 ML IVPB SCH (01:00)
[2021-04-05] MEDS: methylPREDNISolone NA SUCC 40 MG/1 ML VIAL IVPB SCH ×2 (01:54→09:34)
[2021-04-05] MEDS ORDERED: ACETAMINOPHEN 1000 MG/100 ML VIAL (NON FORMULARY) IVPB ONE (04:27)
[2021-04-05] MEDS: LORazepam 2 MG/ML SDV VIAL IVPUSH PRN (05:36)
[2021-04-05 07:01] LABS: CHLORIDE 104 mmol/L (98-107); SODIUM 139 mmol/L (136-145)
[2021-04-05 07:03] LABS: CALCIUM 7.8 mg/dL (8.5-10.1)
[2021-04-05 07:04] LABS: ALBUMIN 2.7 g/dl (3.4-5.0); CO2 27 mmol/L (21-32); GLUCOSE,RANDOM 171 mg/dL (74-106); MAGNESIUM 2.8 mg/dL (1.8-2.4)
[2021-04-05 07:06] LABS: SGPT/ALT 122 U/L (13-61)
[2021-04-05 07:07] LABS: CREATININE 2.1 mg/dL (0.55-1.3); PHOSPHOROUS 7.2 mg/dL (2.5-4.9); SGOT/AST 73 U/L (15-37)
[2021-04-05 07:08] LABS: BILIRUBIN,TOTAL 0.2 mg/dL (0.2-1); TOT PROT 6.4 g/dl (6.4-8.2)
[2021-04-05 07:09] LABS: ALK PHOS 93 U/L (45-117)
[2021-04-05 07:11] LABS: HEMATOCRIT 34.4 % (32.4-45.2); MCH 31.8 pg (25.7-33.7); MEAN CELL VOLUME 99.3 fl (80-96); MEAN PLT VOLUME 7.7 fl (7.5-11.1); PLATELET COUNT 355 10^3/uL (134-434); RBC 3.46 M/mm3 (3.60-5.2); RDW 15.1 % (11.6-15.6); WHITE BLOOD COUNT 18.9 K/mm3 (4.0-10.0)
[2021-04-05 07:50] LABS: ANION GAP 9 MMOL/L (8-16); BLOOD UREA NITROGEN 95.8 mg/dL (7-18)
[2021-04-05] MEDS ORDERED: SODIUM ZIRCONIUM CYCLOSILICATE (LOKELMA) 5 GM PACKET PO ONE (08:30)
[2021-04-05] MEDS: DEXTROSE 5%-NORMAL SALINE 1,000 ML IV SCH (08:31)
[2021-04-05] MEDS ORDERED: DEXTROSE 50%-WATER - 25 GM/50 ML VIAL IVPUSH ONE (08:45)
[2021-04-05] MEDS ORDERED: INSULIN REGULAR HUMAN 100 UNITS/ML *VIAL IVPUSH ONE (08:45)
[2021-04-05] MEDS ORDERED: CALCIUM GLUCONATE 10% - 1,000 MG/10 ML VIAL IVPUSH ONE (08:45)
[2021-04-05] MEDS ORDERED: MORPHINE SULFATE/0.9% NACL/PF 100 MG/100 ML BAG IVPB SCH ×3 (09:09→18:25)
[2021-04-05] MEDS ORDERED: dilTIAZem HCL 50 MG/10 ML - 10 ML VIAL IVPUSH ONE (09:12)
[2021-04-05] MEDS ORDERED: dilTIAZem HCL 125 MG/25 ML - 25 ML VIAL ONE (09:15)
[2021-04-05 09:18] LABS: ANISOCYTOSIS 0; MACROCYTOSIS 0; PLATELET ESTIMATE NORMAL
[2021-04-05] MEDS ORDERED: SODIUM CHLORIDE 1,000 ML IV SCH (09:30)
[2021-04-05] MEDS: PANTOPRAZOLE SODIUM 40 MG VIAL IVPB SCH (09:30)
[2021-04-05] MEDS ORDERED: ENOXAPARIN NA (PORCINE) 40 MG/0.4 ML DISP.SYRIN SQ SCH (10:00)
[2021-04-05] MEDS: MUPIROCIN 2% TOPICAL OINTMENT FOR DECOLONIZATION NS SCH (10:49)
[2021-04-05 14:17] VITALS: BMI 17.2
[2021-04-05 16:43] VITALS: BP 108/52
[2021-04-05 23:05] VITALS: PULSE 141; TEMP 97.8
== END 2021-04-06 07:26 | disposition expired | DRG 180 ==
LOC: JASUSAT 04:39 → J7W 15:57 → JRADIR 15:57 → J7W 17:30 → JICU 04-03 00:31 → JASUSAT 04-03 00:32 → JICU 04-03 07:22 → JASUSAT 04-03 07:22
PROVIDERS: ADMIT Internal Medicine Hematology & Oncology; ATTEND Internal Medicine Hematology & Oncology
PROC: 0JH63XZ Insertion of Tunneled Vascular Access Device into Chest Subcutaneous Tissue and Fascia, Percutaneous Approach (ICD-10-PCS; principal; 2021-04-02)
PROC: 05HM33Z Insertion of Infusion Device into Right Internal Jugular Vein, Percutaneous Approach (ICD-10-PCS; 2021-04-02)
PROC: B513ZZA Fluoroscopy of Right Jugular Veins, Guidance (ICD-10-PCS; 2021-04-02)
DX: C34.90 Malignant neoplasm of unspecified part of unspecified bronchus or lung (principal); I61.3 Nontraumatic intracerebral hemorrhage in brain stem; J96.01 Acute respiratory failure with hypoxia; C79.31 Secondary malignant neoplasm of brain; J44.1 Chronic obstructive pulmonary disease with (acute) exacerbation; I48.92 Unspecified atrial flutter; N17.9 Acute kidney failure, unspecified; E87.2 Acidosis; R64 Cachexia; Z68.1 Body mass index [BMI] 19.9 or less, adult; I13.0 Hypertensive heart and chronic kidney disease with heart failure and stage 1 through stage 4 chronic kidney disease, or unspecified chronic kidney disease; J90 Pleural effusion, not elsewhere classified; D68.59 Other primary thrombophilia; C50.912 Malignant neoplasm of unspecified site of left female breast; I48.0 Paroxysmal atrial fibrillation; D64.9 Anemia, unspecified; E78.5 Hyperlipidemia, unspecified; E87.5 Hyperkalemia; I25.119 Atherosclerotic heart disease of native coronary artery with unspecified angina pectoris; I25.10 Atherosclerotic heart disease of native coronary artery without angina pectoris; E78.00 Pure hypercholesterolemia, unspecified; R45.1 Restlessness and agitation; K21.9 Gastro-esophageal reflux disease without esophagitis; R00.0 Tachycardia, unspecified; G70.89 Other specified myoneural disorders; N18.9 Chronic kidney disease, unspecified; I46.9 Cardiac arrest, cause unspecified; I50.9 Heart failure, unspecified; R94.5 Abnormal results of liver function studies; Z96.641 Presence of right artificial hip joint; Z66 Do not resuscitate; Z85.3 Personal history of malignant neoplasm of breast; Z95.5 Presence of coronary angioplasty implant and graft
CPT/HCPCS: 36415; 36561; 36600; 71045-TC-FY; 80048; 80053; 82803; 82962; 83735; 84100; 84439; 84443; 85025; 85610; 85730; 93005; 93010; 94640; C9803; G0480; J0131; J9271; U0003; U0005